=== PATIENT | male | born 1955 | race Caucasian/White ===

== ENCOUNTER 2022-03-30 07:19 | Inpatient (IN) | payer OTHER ==
[~2022-03-30] VITALS: Ht 172.7 cm; Wt 96.3 kg
[2022-03-30] MEDS ORDERED: OZEMPIC0.25 MG/0. SQ (07:32)
[2022-03-30] MEDS ORDERED: ALLOPURINOL300 MG PO (07:32)
[2022-03-30] MEDS ORDERED: LOSARTAN POTAS100 MG PO (07:33)
[2022-03-30] MEDS ORDERED: INDAPAMIDE1.25 MG PO (07:34)
[2022-03-30] MEDS ORDERED: SPIRONOLACTONE25 MG PO (07:34)
[2022-03-30] MEDS ORDERED: AZELASTINE HCL6 ML OPTH (07:35)
[2022-03-30] MEDS ORDERED: DOXYCYCLINE MO100 M1 PO (07:35)
[2022-03-30] MEDS ORDERED: ISOSORBIDE MONO30 MG PO (07:35)
[2022-03-30] MEDS ORDERED: OLOPATADINE HCL5 ML OP (07:36)
--- NOTE | 2022-03-30 15:00 | NUR ---
PATIENT ADMITTED TO CCU ROOM 130 VIA STRETCHER FROM ER FOR SEVERE SEPSIS. PT PULLED TO CCU BED X3 PERSON ASSIST. PT HAS MOTTLING TO ABDOMEN AND LOWER LEGS. BLOOD PRESSURES ARE LOW UPON ADMISSION. PT FINISHING UP THE 500 ML BOLUS OF NS. IVF TO INFUSE AT 200 ML/HR AFTERWARDS. LOW URINE OUTPUT NOTED IN ER. HR IN THE 110s UPON PRESENTATION. PT STILL RATING ABDOMINAL PAIN 10/10.
--- NOTE | 2022-03-30 16:05 | NUR ---
NOREPI STARTED AT 4 MCG/MIN FOR MANUAL BP OF 60 AND 62 SYSTOLIC. MONITOR READING 72/57. PT STILL PAINFUL. IV BOLUS OF 500 ML OF NS GOING OVER A HALF HOUR AT THIS TIME. THEN IVF TO RESUME AT 200 ML/HR.
[2022-03-30] MEDS ORDERED: FLUTICASONE PRO16 GM NAS (16:31)
[2022-03-30] MEDS ORDERED: AMLODIPINE BESYL5 MG PO (16:31)
[2022-03-30] MEDS ORDERED: SIMVASTATIN20 MG PO (16:34)
[2022-03-30] MEDS ORDERED: AZELAIC ACID50 GM TOP (16:40)
--- NOTE | 2022-03-30 17:21 | NUR ---
NGT INSERTED INTO RIGHT NARE BY SHAR TEJEDA. PT TOLERATED WELL. PT NOW ON 10 MCG/MIN OF LEVOPHED. NGT TO LOW INTERMITTENT SUCTION. IVF CONTINUE AT 200 ML/HR.
--- NOTE | 2022-03-30 19:13 | NUR ---
FENTANYL 25 MG IV REPAEATED FOR PAIN 10/10, COMPAZINE 5 MG IV FOR NAUSEA. PATIENT SON IN ROOM.
--- NOTE | 2022-03-30 21:08 | NUR ---
PT RESTING IN BED AT THIS TIME AWAKE AND ALERT, LEVOPHED INFUSING AT 14MCG/MIN, IVF INFUSING. PT ON 3L O2 NC. PT AWAKE AND ALERT AT THIS TIME. VITALS TAKEN (SEE CHART) AND SCHEDULED MEDICATIONS ADMINISTERED (SEE MAR). INSULIN HELD PER SLIDING SCALE. PRN FENTANYL ADMINISTERED FOR PT'S 10/10 ABDOMINAL PAIN. PRN PHENERGAN ADMINISTERED FOR PT'S NAUSEA. PT ASSESSMENT THEN COMPLETED. PT SLIGHTLY DROWSY BUT AWAKE, ORIENTED X4, FOLLOWS DIRECTIONS, PT REPORTS ABDOMINAL PAIN IS A PRESSURE/BLOATING CRAMP SENSATION. HEART RATE TACHYCARDING BUT REGULAR, PT LUNGS CLEAR IN UPPER LOBES AND DIMINISHED IN THE BASES BILATERALLY. PT REMAINS ON 3L OW NC. ABDOMEN MODERATELY DISTENDED, GUARDED, BOWEL TONES HYPOACTIVE. ABDOMEN MOTTLED IN COLOR. PULSES +1, CAPILLARY REFILL BRISK IN HANDS, DELAYED IN FEET. EXTREMITIES COLD. NT TUBE IN PLACE AND ON LIS, CONTENTS IN TUBING BROWN/MAUVE COLORED. ONEIL DRAINING YELLOW URINE. OVER THE TIME OF BEING WITH THE PATIENT THE LEVOPHED DRIP WAS TITRATED THREE TIMES TO REACH GOAL MAP OF 75MMHG. LEVOPHED DRIP NOW AT 20MCG/MIN (SEE CHART). PT REPORTS NO FURTHER NEEDS AT THIS TIME AND IS NOW RESTING IN BED. CALL LIGHT IN REACH, BED IN LOWEST POSITION, WILL CONTINUE PLAN OF CARE.
--- NOTE | 2022-03-30 21:35 | NUR ---
DR. SORTO NOTIFIED OF PT'S LABS, NEW ORDERS GIVEN TO OBTAIN A CVP AND CONTINUE PLAN OF CARE. PT'S SON NOW IN ROOM AT THE BEDSIDE. NEW BAG OF LEVOPHED STARTED AND INFUSING AT PREVIOUS RATE (SEE CHART). PT RESTING IN BED AT THIS TIME. CALL LIGHT IN REACH, BED IN LOWEST POSITION, WILL CONTINUE PLAN OF CARE.
--- NOTE | 2022-03-30 22:25 | NUR ---
DR. SORTO NOTIFIED THIS RN THAT NEW MAP GOAL WAS 70MMHG PROVIDED PT WAS PRODUCING 0.5ML/KG URINE PER HOUR. IF URINE OUTPUT MAINTAINED AT 0.5ML/KG/HR THEN SUBSEQUENT MAP GOAL WOULD BE DECREASED TO 65MMHG LONG URINE OUTPUT MAINTAINED AT 0.5ML/KG/HR. WILL CONTINUE PLAN OF CARE.
--- NOTE | 2022-03-30 22:52 | NUR ---
PT REMAINS RESTING IN BED, CVP TUBING BEING TROUBLESHOOTED. PT REPORTED ABDOMINAL PAIN DURING THIS TIME 06/01, PRN FENTANYL ADMINISTERED (SEE MAR). CVP OBTAINED AND WAS 4-5 MMHG. VITALS ASSESSED, LEVOPHED TITRATED DOWN TO 18MCG/MIN PER NEW ORDERS. NEW BAG OF IVF STARTED AFTERWARDS AND SCHEDULED IV ABX STARTED AND ALSO INFUSING (SEE MAR). PT REMAINS RESTING IN BED AT THIS TIME AND REPORTS NO FURTHER NEEDS WHEN ASKED. CALL LIGHT IN REACH, BED IN LOWEST POSITION, NG TUBE ON LIS WITH MAUVE COLORED CONTENTS DRAINING FROM TUBE, ONEIL INTACT AND DRAINING YELLOW URINE. PT ON 3L O2 NC, SPO2 96%. WILL CONTINUE PLAN OF CARE.
--- NOTE | 2022-03-30 23:40 | NUR ---
CALL LIGHT USED BY PT, PT REQUESTED PRN PAIN MEDICATION TO RN MARCO. THIS RN IN TO ADMINISTER PRN FENTANYL TO PT (SEE MAR). URINE OUTPUT FOR HOUR MEASURED AND WAS 45ML. PT REPORTS NO FURTHER NEEDS AT THIS TIME AND REMAINS RESTING IN BED AWAKE AND ORIENTED. CALL LIGHT IN REACH, BED IN LOWEST POSITION, LEVOPHED AT 18MCG/MIN, IVF AND IV ABX INFUSING, WILL CONTINUE PLAN OF CARE.
--- NOTE | 2022-03-31 01:05 | NUR ---
PT RESTING IN BED AT THIS TIME, LEVOPHED INFUSING AT 18MCG/MIN. IVF AND IV ABX INFUSING AT ORDERED RATE. PT REMAINS ON 3L O2 NC. PT URINE OUTPUT ASSESSED AND WAS 40ML/HR PT LEVOPHED WAS LEFT AT 18MCG/MIN. PT AWOKE AND STATED HE WAS HAVING 10/10 ABDOMINAL PAIN AND STATED HE FELT PRESSURE IN HIS ABDOMEN. PRN FENTANYL ADMINISTERED AND NG TUBE FLUSHED WITH 70ML WATER. AFTER FLUSHING NG TUBE AND MOMENTARILY INCREASING SUCTION ABOUT 200ML OF ADDITIONAL BROWN/MAUVE FLUID WAS DRAINED FROM THE NG TUBE. PT NOW BACK TO LIS, NG TUBE INTACT AND CONTINUES TO DRAIN. PT VITALS TAKEN AND ASSESSMENT COMPLETED (SEE CHART). PT RYTHM REMAINS REGULAR AND TACHYCARDIC, LUNGS CLEAR IN UPPER LOBES AND DIMINISHED IN THE BASES BILATERALLY, RESPIRATIONS 27-32. ABDOMEN IS MODERATELY DISTENDED AND PAINFUL/GUARDED WHEN PALPATED. BOWEL TONES RARE IN ALL 4 QUADRANTS. RADIAL PULSES STRONG, PEDAL PULSES +1. ONEIL DRAINING YELLOW URINE. AFTER ASSESSMENT PT INCREASED TO 4L O2 NC SPO2 WAS MAINTAINING AT 88-90% AND NEW BAG OF LEVOPHED STARTED AND INFUSING AT PREVIOUS RATE. PT REPORTS NO FURTHER NEEDS AT THIS TIME AND RETURNED BACK TO RESTING WITH HIS EYES CLOSED. CALL LIGHT IN REACH, BED IN LOWEST POSITION, WILL CONTINUE PLAN OF CARE.
--- NOTE | 2022-03-31 01:35 | NUR ---
PT'S DAUGHTER UPDATED AT THIS TIME ON PHONE AFTER GETTING PERMISSION FROM PT. AFTERWARDS PT URINE OUTPUT ASSESSED AND WAS 55ML FOR THE HOUR. LEVOPHED DRIP DECREASED TO 16 MCG/MIN. PT REPORTS NO FURTHER NEEDS AT THIS TIME AND REMAINS RESTING IN BED. NG TUBE ON LIS, IVF AND IV ABX INFUSING, CALL LIGHT IN REACH, WILL CONTINUE PLAN OF CARE.
--- NOTE | 2022-03-31 02:05 | NUR ---
DR. SORTO CALLED THIS RN. UPDATED ON PT'S VITALS, INTAKE AND OUTPUT, AND ASSESSMENTS. NEW ORDERS GIVEN TO DRAW A LACTIC WITH THE MORNING LABS AND CHANGE TOTAL FLUID ADMINISTRATION TO 150MLS/HR. PREVIOUS ORDERS ON MAINTAINING MAPS AND URINE OUTPUT TO BE CONTINUED (SEE NOTE). IVF TURNED DOWN TO 65ML/HR IV ABX AND IV LEVOPHED TOTAL 85ML/HR. LEVOPHED REMAINS AT 16MCG/MIN. PT REPORTS NO NEEDS AT THIS TIME AND IS RESTING IN BED. CALL LIGHT IN REACH, WILL CONTINUE PLAN OF CARE.
--- NOTE | 2022-03-31 03:05 | NUR ---
PT ALERT AND ORIENTED LAYING IN BED, PT ON 16MCG/MIN LEVOPHED WHICH WAS TITRATED DOWN TO 14MCG/MIN PER TITRATION ORDERS (SEE CHART). PT REPORTED HAVING ABDOMINAL PAIN 10/10 AND NAUSEA. PRN FENTANYL AND ZOFRAN ADMINISTERED (SEE MAR). NG TUBE FLUSHED WITH WATER AND REMAINS ON LIS. CONTENTS IN TUBING BROWN/MAUVE. PT REPORTS NO FURTHER NEEDS AFTERWARDS AND IS NOW RESTING IN BED. CALL LIGHT IN REACH, WILL CONTINUE PLAN OF CARE.
--- NOTE | 2022-03-31 04:18 | NUR ---
PT RESTING IN BED AT THIS TIME AWAKE AND ALERT, REMAINS AT 14MCG/MIN, MAPS REMAIN AT 70MMHG AND ABOVE, IVF TOTAL 150ML/HR. PT ASKED TO SIT UP IN BED, PT ASSISTED TO A SITTING POSITION FOR A FEW MINUTES FOR COMFORT. PT THEN ASSISTED BACK TO BED. PT ASSESSMENT COMPLETED AT THIS TIME. PT REPORTS SHORTNESS OF BREATH DUE TO ACTIVITY, SPO2 MAINTAINING AT 98-99% ON 4L O2 NC. . HEAR RATE REGULAR IN RYTHM, TACHYCARDIC. LUNGS CLEAR IN UPPER LOBES, DIMINISHED IN THE BASES. ABDOMEN REMAINS DISTENDED, MOTTLED IN COLOR, RARE BOWEL TONES, GUARDED WHEN PALPATED. PULSES +1, CAP REFILL DELAYED. NG TUBE ON LIS WITH LIGHT BROWN DRAINING IN TUBING. PT REPORTED PAIN AFTERWARDS IN ABDOMEN /10. PRN FENTANYL ADMINISTERED. PT NOW RESTING IN BED AND REPORTS NO NEEDS WHEN ASKED. CALL LIGHT IN REACH, BED IN LOWEST POSITION, WILL CONTINUE PLAN OF CARE.
--- NOTE | 2022-03-31 04:31 | NUR ---
DR. SORTO NOTIFIED OF PT'S VITALS, URINE OUTPUT, AND LEVOPHED DRIP RATE OF 14 MCG/MIN. NEW ORDERS GIVEN TO INCREASE TOTAL FLUDI RATE TO 200MLS/HR. IVF INCREASED TO 142 ML/HR LEVOPHED RATE IS AT 52 ML/HR. PT REPORTS NO NEEDS AT THIS TIME, WILL CONTINUE PLAN OF CARE.
--- NOTE | 2022-03-31 05:45 | NUR ---
NEW BAG OF LEVPOPHED AND NORMAL SALINE STARTED. PT AWAKE IN BED AT THIS TIME AND REPORTED 10/10 ABDOMINAL PAIN. PRN FENTANYL ADMINISTERED ALONG WITH SCHEDULED IV ABX. IVF RATE ADUSTED DUE TO IV ABX INFUSING IN ORDER TO MAINTAIN TOTAL FLUID RATE OF 200ML/HR (SEE CHART). PT REPORTS NO FURTHER NEEDS AT THIS TIME WHEN ASKED, ONEIL DRAINING URINE, NG TUBE ON LIS, CONTENTS IN TUBING HADLEY/BROWN. CALL LIGHT IN REACH, BED IN LOWEST POSITION, PT REMAINS ON 4L O2 NC, WILL CONTINUE PLAN OF CARE.
--- NOTE | 2022-03-31 06:15 | NUR ---
PT RESTING IN BED AT THIS TIME AWAKE. IVF AND LEVOPHED REMAIN AT PREVIOUS RATES (SEE MAR). SCHEDULED LABS DRAWN FROM CENTRAL LINE AT THIS TIME AFTER STOPPING FLUIDS AND WASTING 6ML. BLOOD SAMPLES SENT TO LAB. PT REPORTS NO NEEDS AT THIS TIME, CALL LIGHT IN REACH, BED IN LOWEST POSITION.
--- NOTE | 2022-03-31 07:01 | NUR ---
PT RESTING IN BED AWAKE AND ALERT. PT REPORTS 10/10 ABDOMINAL PAIN AT THIS TIME. PRN FENTANYL ADMINISTERED (SEE MAR). NG TUBE THEN FLUSHED. PT REPORTS NO NEEDS AND REMAINS RESTING IN BED. NG TUBE FLUSHED WITH 50ML OF WATER TO ENSURE PATENCY. CALL LIGHT IN REACH, BED IN LOWEST POSTION, ONEIL DRAINING, NG TUBE ON LIS.
--- NOTE | 2022-03-31 07:07 | NUR ---
DR. SORTO NOTIFIED OF PT'S CRITICAL LAB VALUES K OF 6.8, CO2 10, LACTIC 4.2. NEW ORDERS TO BE PLACED. STAT CHEST X-RAY AND ABDOMINAL X-RAY ORDERED, POTASSIUM ORDERED TO BE REDRAWN. PT RESTING IN BED AT THIS TIME AND REPORTS NO NEEDS, IVF RATES UNCHANGED. POTASSIUM REDRAWN FROM CENTRAL LINE AFTER PAUSING FLUIDS MOMENTARILY AND WASTING 6ML. PT REPORTS NO NEEDS, WILL CONTINUE PLAN OF CARE.
--- NOTE | 2022-03-31 07:25 | NUR ---
DR. SORTO UPDATED ON REDRAWN POTASSIUM THAT WAS 6.8. NEW ORDERS TO BE PLACED, IMAGING CURRENTLY IN PT'S ROOM TO DO CHEST X-RAY AND ABDOMINAL X-RAY. DR. PRO ALSO UPDATED ON PT'S LABS, VITALS, AND LEVOPHED RATE OF 14MCG/MIN, WILL CONTINUE PLAN OF CARE.
--- NOTE | 2022-03-31 07:50 | NUR ---
CXR AND ABD XRAY DONE. DR. PRO IN ROOM TO SEE PATIENT. PT 07/02 PAIN. PRN MEDS GIVEN. PT TO RECEIVE IV INSULIN, IV D50, IV LASIX WITH IV ALBUMIN, IV CALCIUM GLUCONATE. POTASSIUM IS 6.8 THIS AM. SODIUM BICARD GTT TO BE STARTED. NEB TX STARTED PER RT, THEN ABG TO BE DRAWN. PT ON 4 L. HANDS ARE COLD. HR IN THE 110s. LAST BP 85/65 (72). ATTEMPTING TO KEEP MAP >75 AND URINE OUTPUT AT LEAST 45 ML/HR.
--- NOTE | 2022-03-31 08:09 | NUR ---
ABG DRAWN FROM LEFT FEMORAL BY DR. PRO. UNABLE TO DRAW THROUGH PT'S WRISTS.
--- NOTE | 2022-03-31 08:10 | NUR ---
Attempted to see pt, Dr. Jin in the room and Dr. Hernandez in CCu. Staff preparing pt to go for emergenyc surgery. Will see pt tomorrow.
--- NOTE | 2022-03-31 09:10 | NUR ---
UPON RESUMING CARE OF PATIENT THIS AM AT 0730, PT WAS HAVING ABD XRAY AND CHEST XRAY. PT VERY PAINFUL WITH ANY MOVEMENT. PT REQUESTING PAIN MEDICATION WHICH WAS GIVEN. AM LABS ARE CONCERNING,AND NEW ORDERS WERE PLACED AND FOLLOWED ( SEE EMAR). DR. PRO AND DR. SORTO WERE BOTH IN PATIENT'S ROOM BY 0800. LEVI MAYES IN ROOM WELL TO DISCUSS UPCOMING EMERGENT SURGERY. PATIENT'S HANDS WERE COOL UPON EXAM AND PULSE OXIMETERY WAS HAVING A HARD TIME PICKING UP ACCURATE PLETH. HANDS WARMED WITH WARM BLANKETS. LEVOPHED GTT WAS INFUSING AT 14 MCG/MIN INITIALLY AND THEN TITRATED UP TO 20 MCG/MIN WHEN PT LEFT FOR SURGERY. VASOPRESSIN WAS ALSO STARTED AT 0.3 UNITS/MIN. SODIUM BICARB GTT STARTED AT 200 ML/HR. PT'S ABDOMEN REMAINS MOTTLED, BUT THE LEGS ARE LESS MOTTLED THAN THEY WERE YESTERDAY. COOL LOWER EXTREMITIES ALSO. PT LEFT FOR SURGERY AT 0840. PT'S SON SERA WAS IN ROOM AND GIVEN UPDATE BY DR. PRO AND DR. SORTO. HE IS GOING TO GO HOME TO GET HIS MOTHER AND THEN WILL RETURN. PT WAS ALSO GIVEN KAYEXELATE ENEMA PRIOR TO LEAVING AND TOLERATED THIS WELL. PT REMAINED ALERT, ORIENTED, AND AWARE OF CURRENT SITUATION.
--- NOTE | 2022-03-31 12:30 | NUR ---
PATIENT RETURNED FROM SURGERY AROUND 1145, INTUBATED WITH 8.0 ETT. PT WAS ON LEVOPHED AND VASOPRESSIN UPON RETURN FROM SURGERY. PATIENT HAS AN ILEOSTOMY NOW, WELL A G TUBE WHICH IS HOOKED TO ONEIL BAG. URINE OUTPUT IN SURERY WAS 600 ML AND NOW EMPTIED AT 1200 FOR 250 ML. PT NOT ON ANYTHING FOR SEDATION OF YET. DR. SORTO AND DR. PRO IN ROOM. ORDER REC'D TO GIVE SODIUM BICARB PUSH WHICH WAS DONE ( SEE EMAR). LABS DRAWN WELL AND RESULTS PENDING.
--- NOTE | 2022-03-31 12:40 | NUR ---
LAB CALLED AT THIS TIME WITH CRITCAL LACTIC VALUE OF 6.6, SHAR GUZMAN NOTIFIED.
--- NOTE | 2022-03-31 12:57 | NUR ---
PATIENT'S SON AND IN ROOM AT THIS TIME WITH PATIENT. UPDATE GIVEN.
--- NOTE | 2022-03-31 13:21 | NUR ---
1223 ET TUBE WAS 26 AT THE TEETH. AFTER CHEST X-RAY, PULLED ET TUBE BACK TO 24 AT THE TEETH. ETT IS NOW 2CM ABOVE THE CHUN. ET TUBE IS AN 8.0.
--- NOTE | 2022-03-31 14:11 | NUR ---
MED REC COMPLETE
--- NOTE | 2022-03-31 16:50 | NUR ---
PATIENT'S SON SERA IN ROOM AT THIS TIME. PT GIVEN DOSE OF KETAMINE FOR PAIN AND SEDATION. PT ANSWERING QUESTIONS THROUGH NODDING OF HEAD. CURRENTLY LEVOPHED INFUSING AT 26 MCG/MIN (CONCENTRATION IS NOW 8 MG/250 ML BAG), NS AT 100 ML/HR, IV ZOSYN INFUSING AT 25 ML/HR. MONITORING ART LINE PRESSURES WELL NON INVASIVE PRESSURES. PT CONTINUES TO PUT OUT GOOD AMOUNTS OF URINE EACH HOUR, WITH THE LAST HOUR AT 1600 BEING 425 ML. PRIOR HOUR (1500) WAS 625 ML, AND 700 ML THE HOUR BEFORE (1400). ILEOSTOMY BAG HAS SOME AMOUNT OF BROWNISH THIN DRAINAGE. GASTRIC TUBE ON LEFT HAND SIDE IS CONNECTED TO ONEIL BAG, DRAINING DARK GREEN BILE LIKE MATERIAL. PER DR. SORTO, WE WILL CONTINUE TO TITRATE NOREPI DOWN BY LOOKING AT THE NON INVASIVE BP AND COMPARING TO THE MANUAL BPs. ART LINE PRESSURES HAVE DIFFERED FROM NIBP ENTIRE TIME WHILE PT IN CCU. PT NOW GETTING ORAL CARE PER RN. WILL CONTINUE TO MONITOR CLOSELY.
--- NOTE | 2022-03-31 18:57 | NUR ---
PATIENT'S DAUGHTER AND HER BOYFRIEND BOTH IN ROOM. PT'S SON LEAVES FOR THE NIGHT. PT IS NOW ON LEVOPHED AT 28 MCG/MIN, NS AT 100 ML/HR, AND PROPOFOL AT 5 MCG/KG/MIN. VENT SETTINGS REMAIN VT 550, PEEP 5, VC/AC 28, AND F902 40%. PT STILL 24 AT THE LIP. CONTINUE TO MONITOR ART LINE IN LEFT WRIST. ART LINE READING 84/62 AT THIS TIME AND NIBP 107/78. CVP READING 3.
--- NOTE | 2022-03-31 20:17 | NUR ---
PT LAYING IN BED ON VENTILATOR RESTING AT THIS TIME. SHAR LARA IN TO ASSIST WITH PT CARES AND DRAW LABS. VENT SETTINGS ARE AT FIO2 40%, PEEP 5, RR 28, VT 550, VC-AC MODE. LEVPHED AT 28 MCG/MIN, PROPOFOL AT 5 MCG/KG/MIN, LR AT 100 ML/HR. VITALS TAKEN AT THIS TIME (SEE CHART). PT BECAME RESTLESS AFTERWARDS, PRN FENTANYL ADMINISTERED. LEVOPHED THEN TITRATED UP TO 30MCG/MIN TO MAINTAIN MAPS ABOVE 60 MMHG (SEE CHART). PT ASSESSMENT COMPLETED AFTERWARDS. PT RASS -1, HEART RYTHM REGULAR AND TACHYCARDIC, LUNGS ARE CLEAR, SPO2 98%, RR 28-30. ABDOMEN SLIGHTLY MOTTLED MILD DISTENTION NOTED BUT IS SOFT, OSTOMY SITE DRAINAGE NOTED BUT NOT SATURATED, BROWN LIQUID CONTENTS IN OSTOMY BAG. G TUBE DRAINING TO GRAVITY, SITE C/D/I. ONEIL IN PLACE AND DRAINING URINE. RIGHT IJ C/D/I AND PATENT. CVP ON BROWN PORT. ART LINE C/D/I. PULSES ASSESSED VIA DOPPLER, RESTRAINTS RELEASED AND SECURED. SKIN INTACT. SCDS ON LEGS AND ON. PT SAT UP 30 DEGREES AND REPOSITIONED WITH A PILLOW UNDER HIS RIGHT SIDE. SHAR LARA ASSISTED WITH IN LINE AND ORAL SUCTIONING. PT REMAINS RESTING AT THIS TIME NOW IN NO APPARENT DISTRESS. PT'S FAMILY IN ROOM AT THE BEDSIDE. WILL CONTINUE PLAN OF CARE.
--- NOTE | 2022-03-31 20:21 | NUR ---
DR. SORTO NOTIFIED OF PT'S CRITICAL LACTIC ACID OF 5.0. DR. SORTO ALSO UPDATED ON REMAINING LABS, INTAKE AND OUTPUT, AND IV MEDICATION/FLUID RATES. NEW ORDERS TO BE PLACED, WILL CONTINUE TO MONITOR OUTPUT AND TITRATE LEVOPHED TOLERATED. WILL CONTINUE PLAN OF CARE.
--- NOTE | 2022-03-31 20:40 | NUR ---
PT RESTLESS IN BED AT THIS TIME WHILE ON THE VENTILATOR. PROPOFOL INCREASED FROM 5 TO 10 MCG/KG/MIN. AFTERWARDS PRN FENTANYL WAS ADMINISTERED FOR PT'S PAIN VIA GRIMACING AND RESTLESSNESS. PT'S SCHEDULED IV ABX STARTED AFTERWARDS. PT NOW RESTING IN BED ON VENTILATOR. SETTINGS UNCHANGED, LEVOPHED RATE REMAINS AT 30 MCG/MIN, IVF RATE AT 100, WILL CONTINUE PLAN OF CARE.
--- NOTE | 2022-03-31 21:20 | NUR ---
PT RESTLESS IN BED AT THIS TIME WHILE ON VENTILATOR. PROPOFOL INCREASED TO 15 MCG/KG/MIN AND PRN FENTANYL ADMINISTERED FOR PAIN (SEE MAR). AFTERWARDS MAPS NOTED TO FALL BELOW 60 ON ARTERIAL LINE, PROPOFOL DECREASED BACK TO 10 MCG/KG/MIN, LEVOPHED INCREASED UP TO 32 MCG/MIN. PT NOW RESTING IN BED ON THE VENTILATOR IN NO APPARENT DISTRESS. WILL CONTINUE PLAN OF CARE AND NOTIFY DR. SORTO THAT LEVOPHED WAS TITRATED OVER 30MCG/MIN.
--- NOTE | 2022-03-31 21:50 | NUR ---
DR. SORTO NOTIFIED THAT LEVOPHED DRIP WAS TITRATED UP TO 32 MCG/MIN. DR. SORTO ALSO UPDATED ON URINARY OUTPUT AND CVP. NEW ORDERS GIVEN TO ADMINISTER A 500ML BOLUS OF LR OVER 1 HOUR AND THEN RECHECK CVP. LR BOLUS STARTED AFTERWARDS ORDERED AND IS NOW INFUSING AT ORDERED RATE. PT REMAINS RESTING IN BED ON THE VENTILATOR. LEVOPHED AT 32MCG/MIN, PROPOFOL AT 10 MCG/KG/MIN, LR AT 100ML/HR. ONEIL DRAINING., G TUBE DRAINING, WILL CONTINUE PLAN OF CARE.
--- NOTE | 2022-03-31 22:26 | NUR ---
PRN FENTANYL ADMINISTERED AT THIS TIME PT WAS RESTLESS WHILE ON THE VENTILATOR. PT RESTING AFTER PRN FENTANYL WAS ADMINISTERED. VENT SETTINGS AND FLUID RATES UNCHANGED, WILL CONTINUE PLAN OF CARE.
--- NOTE | 2022-03-31 22:58 | NUR ---
IVF COMPLETED AT THIS TIME, CVP ASSESSED AND WAS [address] SORTO NOTIFIED OF CVP, URINARY OUTPUT, AND DRIP RATES AND RESPONSE TO 500ML BOLUS. NEW ORDERS GIVEN TO INCREASE LR FLUID RATE TO 150ML/HR AND ADMINISTER IV ALBUMIN. NEW ORDERS TO BE PLACED BY DR. SORTO. RATE OF LR INCREASED TO 150 ORDERED, ALBUMIN TO BE ADMINISTERED. PT RESTING IN BED ON THE VENTILATOR, SETTINGS UNCHANGED. PT IN NO APPARENT DISTRESS, WILL CONTINUE PLAN OF CARE.
--- NOTE | 2022-04-01 01:30 | NUR ---
PT RESTING IN BED AT THIS TIME, VENT SETTINGS AND FLUID RATES UNCHANGED (SEE CHART). VITALS TAKEN AND ASSESSMENT COMPLETED. LUNGS REMAIN CLEAR, HEART RYTHM REGULAR RYTHM, TACHYCARDIC. RARE BOWEL TONES PRESENT IN RUQ, ABSENT IN THE REST OF THE QUADRANTS. OSTOMY CONTAINS BROWN LIQUID WHICH WAS EMPTIED (200ML). ABDOMINAL DRESSING MORE SATURATED WITH OSTOMY DRAINAGE. G-TUBE SITE C/D/I. SHAR LARA ASSISTED WITH DRESSING CHANGE. SOILED DRESSING REMOVED, SITE CLEANED, SURGICAL SITE NOW C/D/I. NEW ACTICOAT, OPSITE, AND OSTOMY BAG/DRESSING IN PLACE. G-TUBE SITE C/D/I AND DRAINING BROWN/GREEN FLUID. RADIAL PULSES WEAK, PEDAL PULSES PRESENT VIA DOPPLER, CAPILLARY REFILL BRISK. PRN FENTANYL ADMINISTERED FOR PAIN (SEE MAR). SHAR LARA ASSISTED WITH A CENTRAL LINE DRESSING FOR THE RIGHT IJ, THIS RN MUSTAPHA SCHEDULED LABS WHICH WERE THEN SENT. ART LINE ZEROED AFTERWARDS AND SITE REINFORCED WITH TAPE. NEW BAG OF LEVOPHED STARTED AT A NEW RATE OF 30MCG/MIN, NEW BAG OF LR STARTED AT PREVIOUS RATE OF 150 ML/HR, PROPOFOL LEFT AT 10 MCG/KG/MIN. 1 UNIT OF INSULIN ADMINISTERED PER SLIDING SCALE (SEE MAR). AFTERWARDS PT BECAME RESTLESS AGAIN IN BED. YOGA COORDINATOR NAA ADMINISTERED ADDITIONAL DOSE OF PRN FENTANYL (SEE MAR). PT NOW RESTING IN BED ON THE VENT IN NO APPARENT DISTRESS. IVF INFUSING, LEVOPHED INFUSING, PROPOFOL INFUSING, ONEIL DRAINING, G-TUBE DRAINING, OSTOMY SITE DRAINING, WILL CONTINUE PLAN OF CARE.
--- NOTE | 2022-04-01 01:35 | NUR ---
DR. SORTO NOTIFIED OF PT'S LABS, MEDICATION RATES, INTAKE AND OUTPUT. NO NEW ORDERS AT THIS TIME, WILL CONTINUE TO TITRATE LEVOPHED DOWN TOLERATED. WILL CONTINUE PLAN OF CARE.
--- NOTE | 2022-04-01 03:15 | NUR ---
PT RESTING IN BED AT THIS TIME, URINE OUTPUT FOR THE HOUR WAS 210ML. LEVOPHED TITRATED DOWN TO 22 MCG/MIN. PT BEGAN TO BECOME RESTLESS AFTERWARDS INBED AND GRIMACE. PRN FENTANYL ADMINISTERED (SEE MAR). PT NOW RESTING IN BED IN NO APAPRENT DISTRESS ON THE VENT. WILL CONTINUE PLAN OF CARE.
--- NOTE | 2022-04-01 03:25 | NUR ---
PT RESTING IN BED ON THE VENTILATOR IN NO APPARENT DISTRESS. LEVOPHED TITRATED DOWN TO 20 MCG/MIN AT THIS TIME PER MAPS AND URINE OUTPUT (SEE CHART). WILL CONTINUE PLAN OF CARE. IVF AND PROPOFOL ON AT PREVIOUS RATES.
--- NOTE | 2022-04-01 04:56 | NUR ---
PT RESTING IN BED AT THIS TIME RESTLESS ON THE VENT. LEVOPHED TITRATED DOWN PER MAP AND URINE OUTPUT, PRN FENTANYL THEN ADMINISTERED FOR PAIN (SEE MAR). VITALS TAKEN AND ASSESSMENT COMPLETED (SEE CHART). PT RASS -2, PT OPENED EYES WHILE DOING ORAL CARES. LUNGS REMAIN CLEAR, BOWEL TONES RARE IN UPPER RIGHT AND ABSENT IN REMAINING QUADRANTS, ABDOMINAL INCISION C/D/I WITH SOME SCANT SPOTTING, OSTOMY SITE C/D/I, G-TUBE SITE C/D/I, DARK GREEN DRAINAGE NOTED. RADIAL PULSES +1, PEDAL PULSES HEARD WITH DOPPLER, EXTREMTIES REMAIN COLD. ONEIL DRAINING URINE. AFTERWARDS LEVOPHED WAS TITRATED BACK UP TO 20MCG/MIN MAPS FELL BELOW 60 MMHG. PT REPOSITIONED UP IN BED WITH ASSISTANCE FROM SHAR LARA. LINES ZEROED AFTERWARDS. AFTER REPOSITIONED PT BECAME RESTLESS AND WAS GRIMACING. A PRN DOSE OF FENTANYL WAS ADMINISTERED FOR PAIN. PT NOW RESTING IN BED IN NO APPARENT DISTRESS ON THE VENT. IVF AND PROPOFOL REMAIN UNCHANGED, WILL CONTINUE PLAN OF CARE.
--- NOTE | 2022-04-01 06:17 | NUR ---
PT RESTING IN BED ON THE VENT, SETTINGS UNCHANGED, LEVOPHED AT 18MCG/MIN, PROPOFOL AT 10 MCG/KG/MIN, IVF AT 150. LABS DRAWN AT THIS TIME AND SENT TO LAB. IV ABX STARTED AND INFUSING AT ORDERED RATE. CBG ASSESSED BY SHAR LARA, NO INSULIN ADMINISTERED PER SLIDING SCALE. G-TUBE SITE C/D/I, TOTAL DRAINAGE WAS 25ML FOR THE SHIFT, DRAINIAGE WAS DARK GREEN. ILEOSTOMY SITE C/D/I, TOTAL DRAINIAGE FOR THE SHIFT WAS 225ML OF LIQUID BROWN FLUID. MIDLINE INCISION C/D/I WITH SCANT RED SPOTTING. UO FOR THE HOUR WAS 145ML. PT REPOSITIONED IN BED, PILLOWS REMOVED FROM UNDERNEATH HIP PER FAMILY REQUEST PT IS STATED TO HAVE HIP ISSUES ON HIS LEFT SIDE. PRN FENTANYL ADMINISTERED PT BECAME RESTLESS (SEE MAR). PT NOW RESTING IN BED IN NO APPARENT DISTRESS. NO FURTHER NEEDS ASSESSED, FAMILY IN ROOM AT THE BEDSIDE, WILL CONTINUE PLAN OF CARE.
--- NOTE | 2022-04-01 06:31 | NUR ---
PT RESTING IN BED ON THE VENT, SETTINGS UNCHANGED. LEVOPHED TITRATED DOWN TO 16MCG/MIN PER MAPS AND URINE OUTPUT. IVF REMAINS AT 150MLS AND PROPOFOL REMAINS AT 10 MCG/KG/MIN. PT REMAINS RESTING IN BED, FAMILY IN ROOM, WILL CONTINUE PLAN OF CARE.
--- NOTE | 2022-04-01 06:51 | NUR ---
PT LEVOPHED INCREASED BACK TO 18 MCG/MIN MAPS FELL BELOW 60 MMHG AFTER PRN DOSE OF FENTANYL WAS ADMINISTERED (SEE MAR). PT REMAINS RESTING IN BED ON THE VENT IN NO APPARENT DISTRESS. VENT SETTINGS UNCHANGED, IVF AND PROPOFOL RATES UNCHANGED, IV ABX INFUSING, WILL CONTINUE PLAN OF CARE.
--- NOTE | 2022-04-01 07:15 | NUR ---
REPORT RECIEVED, CARE OF PT ASSUMED AT THIS TIME.
--- NOTE | 2022-04-01 07:30 | NUR ---
PT AWAKE IN ROOM. RESPONSIVE TO YES OR NO QUESTIONS. SHAKES HEAD YES WHEN ASKED IF HE HAS PAIN. PRN FENTYNAL GIVEN AT THIS TIME. PT HEART RATE AT 115- 120 AT REST. ART LINE AND CVP LINED ZEROED AT THIS TIME. LEVOPHED TITRATED UP TO 20 MCG/MIN. PROPOFOL REMAINS AT 10 MCG/KG/MIN. IV FLUIDS AND ABX CONTINUE TO INFUSE.
--- NOTE | 2022-04-01 08:21 | NUR ---
RT IN ROOM THIS TIME TO DO ORAL CARE AND ASSESSMENT.
--- NOTE | 2022-04-01 08:30 | NUR ---
ASSESSMENT COMPLETED. PT BREATHING WTIH THE VENT. RR=28. JA=806, PEEP= 5, FIO2= 40%. PT IN NEED OF PRN FENTYNAL Q 30 MINUTES. PT AT A KANA OF -1 TO -2. PROPFOL INFUSING AT 10 MCG/KG/MIN. RARE BOWEL TONES NOTED IN UPPER LEFT AND RIGHT QUADRANTS. ABSENT IN LOWER ABDOMINAL QUADRANTS. PT MILDLY DIAPHORETIC. AXIALLARY TEMP OF 99.9. LEVOPHED DRIP AT 22 MCG PER MINUTE TO MAINTAIN MAPS BETWEEN 60-70. RADIAL PULSES WEAK, DISTAL PULSES FOUND BY DOPPLER. FEET ARE COOL TO TOUCH. DRESSING ON MIDLINE INCISION IS CLEAN, DRY AND INTACT. WRIST RESTRAINTS RELEASED AND RETIED. DAUGHTER REMAINS AT BEDSIDE. DR SORTO CALLED AND UPDATED ON PT CURRENT CONDTION BY PHONE.
--- NOTE | 2022-04-01 09:47 | NUR ---
PT CONTINUES TO NEED PAIN MEDICATION Q 30 MINUTES. RASS -1 TO -2. LEVOPHED, PROPOFOL, ABX, AND IV FLUIDS CONTINUE TO INFUSE. DAUGHTER REMAINS AT BEDSIDE.
--- NOTE | 2022-04-01 10:26 | NUR ---
DR SORTO IN ROOM AT THIS TIME TO ASSESS PATIENT AND ESTABLISH PLAN OF CARE FOR THE DAY. LACTIC ACID ORDERED AT THIS TIME. PLAN TO KEEP PATIENT ON THE VENT WITH SEDATION AT CURRENT SETTINGS, ATTEMPT TO WEAN DOWN THE LEVOPHED DRIP, AND REDRAW AN ABG IN THE AFTERNOON ESTABLISHED. DAUGHTER THOMAS UPDATED ON PLAN OF CARE. ALL QUESTIONS ANSWERED.
--- NOTE | 2022-04-01 11:00 | NUR ---
IV MAGNESIUM NOW INFUSING. PT IV FLUIDS DECREASED TO 100 MLS/HR TO MAINTAIN IV INFUSION TOTAL OF 200 MLS/HR PER R SORTO.
--- NOTE | 2022-04-01 11:58 | NUR ---
PT GIVEN BED BATH. ONEIL CARE COMPLETED. RESTRAINTS RELEASED AND RETIED. WELL TOLERATED BY PT. PT IS NOW RESTLESS IN BED, GRIMACING. GIVEN PRN FENTYNAL (SEE EMAR) AND FENTYNAL DRIP NOW INFUSING. PT NOW AT BEDSIDE. TELEVISION ANCHOR TITI NOW IN ROOM TALKING WITH .
--- NOTE | 2022-04-01 12:22 | NUR ---
DISCUSSED PT URINE OUTPUT AND BLOOD PRESSURES WITH DR SORTO. VERBAL ORDER TO RESUME IV FLUIDS AT 150 MLS/HR.
--- NOTE | 2022-04-01 14:45 | NUR ---
DR SORTO UPDATED ON PT'S URINE OUTPUT, VS, AND OTHER ASSESSMENT FINDINGS. PLAN ESTABLISHED TO CONTINUE TITRATING LEVOPHED DOWN.
--- NOTE | 2022-04-01 15:51 | NUR ---
DR SORTO IN ROOM TO REASSESS PT. PLAN TO CONTINUE TITRATING PT DOWN ON LEVOPHED DRIP.
--- NOTE | 2022-04-01 16:05 | NUR ---
ASSESSMENT UNCHANGED. PT REPOSTIONED. WHEN ASKED IF HE IS LESS PAINFUL PT NODS YES. LEVOPHED AT 10 MCG/MIN. IV PROPOFOL AND FENTYNAL CONTINUE TO INFUSE. ORAL CARE COMPLETED. WELL TOELRATED BY PT
--- NOTE | 2022-04-01 17:05 | NUR ---
DR SORTO AT BEDSIDE TO REASSESS PT WITH THIS RN. PLAN ESTABLISHED TO TITRATE LEVOPHED DRIP BASED ON EXTERNAL BLOOD PRESSURE READINGS AND URINE OUTPUT. LEVOPHED DRIP AT THIS TIME TITRATED DOWN TO 8 MCG/MIN
--- NOTE | 2022-04-01 18:21 | NUR ---
ABG AND OTHER LABS DRAWN AND SENT TO LAB. LEVOPHED AT 8 MCG/MIN. PT GIVEN 25 MCG OF FENTYNAL IV PUSH FOR GENERALIZED DISCOMFORT. PT DAUGHTER THOMAS BACK AT BEDSIDE AND GIVEN AN UPDATE ON PT CONDITION AND CURRENT PLAN OF CARE. ALL QUESTIONS ANSWERED.
--- NOTE | 2022-04-01 19:12 | NUR ---
LEVOPHED TITRATED BACK UP TO 8 MCG/MIN FOR MAP LESS THAT 65. REPORT GIVEN TO DAIRY TECHNOLOGIST RN AT THIS TIME.
--- NOTE | 2022-04-01 19:20 | NUR ---
REPORT RECEIVED FROM LASHANDA RN, WILL CONTINUE PLAN OF CARE.
--- NOTE | 2022-04-01 19:30 | NUR ---
DR. PRO UPDATED ON PT'S LABS AND DRIP RATES AT THIS TIME. WILL CONTINUE PLAN OF CARE
--- NOTE | 2022-04-01 19:50 | NUR ---
PT RESTING IN ROOM ON THE VENTILATOR. SETTINGS ARE VT 420, RR 28, FIO2 40%, PEEP 5. LEVOPHED AT 8MCG/MIN, PROPOFOL AT 8MCG/KG/MIN, FENTANYL AT 25 MCG/HR, IVF AT 150 ML/HR. MANUAL BP TAKEN AT THIS TIME AND WAS 68/52 MMHG. BP COMPARED TO ART LINE BP AND NONINVASIVE BP FROM MONITOR (SEE VITALS). PT IN NO APPARENT DISTRESS AT THIS TIME AND REMAINS RESTING ON THE VENT. WILL CONTINUE PLAN OF CARE.
--- NOTE | 2022-04-01 19:55 | NUR ---
DR. SORTO UPDATED ON PT'S MANUAL BLOOD PRESSURE, ART LINE PRESSURE, AND NONINVASIVE MONITOR PRESSURE, DRIP RATES, AND URINE OUTPUT. ORDERS GIVEN TO MAINTAIN MAPS ABOVE 60 MMHG, MONITOR URINE OUTPUT, AND TITRATE OFF LEVOPHED TOLERATED. PT VENT SETTINGS TO BE CHANGED BY RT, RR TO BE TURNED DOWN BY 2 Q1 HR UNTIL RATE IS AT 20/MIN AND ETCO2 REMAINS UNDER 35. NEW ORDERS TO BE PLACED BY DR. SORTO. RT NOTIFIED AT THIS TIME OF NEW ORDERS, WILL CONTINUE PLAN OF CARE.
--- NOTE | 2022-04-01 21:05 | NUR ---
PT RESTING IN BED ON THE VENT, DRIP RATES UNCHANGED. ASSESSMENT COMPLETED AT THIS TIME. PT RASS -1 AND OPENS EYES TO VOICE. LUNGS REMAIN CLEAR, RR NOW AT 26 ON VENT. HEART RYTHM REGULAR AND TACHYCARDIC. ABDOMEN MILDLY DISTENDED, SOFT, RARE BOWEL TONES PRESENT ON RUQ AND ABSENT IN REMAINING QUADRANTS. OSTOMY SITE C/D/I, BROWN LIQUID NOTED IN BAG. MIDLINE INCISION C/D/I WITH SCANT RED SPOTTING. G-TUBE ON LEFT SIDE IS C/D/I, DRAINING DARK GREEN LIQUID INTO BAG. RADIAL AND PEDAL PULSES +1, RESTRAINTS IN PLACE, SKIN UNDERNEATH INTACT, EXTREMITIES WARM. ART LINE IN PLACE AND C/D/I, ONEIL DRAINING YELLOW URINE. SCDS IN PLACE. AFTER ASSESSMENT PT WAS ORAL SUCTIONED, PT BECAME RESTLESS DURING THIS TIME AND WAS GIVEN A PRN PUSH OF FENTANYL (SEE MAR). SCHEDULED MEDICATIONS THEN ADMINISTERED (SEE MAR). IV POTASSIUM INFUSING INTO CENTRAL LINE, 1 UNIT INSULIN GIVEN PER SLIDING SCALE. NEW GOWN PLACED ON PATIENT AFTERWARDS. RT NOW IN ROOM CHANGING RR ON VENT TO 24. PT BECAME RESTLESS IN BED AFTERWARDS, PROPOFOL DRIP INC TO 10 MCG/KG/MIN, FENTANYL DRIP INCREASED TO 50 MCG/HR. PT NOW RESTING IN BED IN NO APPARENT DISTRESS, WILL CONTINUE PLAN OF CARE.
--- NOTE | 2022-04-01 22:15 | NUR ---
PT RESTLESS IN BED, FENTANYL DRIP INCREASED TO 75MCG/HR. PT REPOSITIONED UP IN BED WITH ASSISTANCE FROM SHAR LARA AND REMAINS AT 30 DEGREES. ART LINE REZEROED AFTER REPOSITIONING PT. ORAL CARE DONE AT THIS TIME, RT IN ROOM AND CHANGED RR ON VENT TO 22/MIN. ETCO2 30-32. PT REMAINS RESTLESS IN BED AFTERWARDS, PRN FENTANYL PUSH ADMINISTERED (SEE MAR). PT NOW RESTING IN BED IN NO APPARENT DISTRESS. WILL CONTINUE PLAN OF CARE.
--- NOTE | 2022-04-01 22:30 | NUR ---
SCHEDULED IV ZOSYN STARTED AND INFUSING AT ORDERED RATE. PT REMAINS RESTING IN BED, NO FURHTER NEEDS ASSESSED, WILL CONTINUE PLAN OF CARE.
--- NOTE | 2022-04-01 23:34 | NUR ---
PT IV POTASSIUM COMPLETED AT THIS TIME. PT URINE FOR THE HOUR WAS 40ML. PT RESTLESS IN BED, PROPOFOL INCREASED TO 15MCG/KG/MIN. RT IN ROOM AND DECREASED RR TO 20/MIN. ETCO2 29-30. PT PILLOSES REPOSITIONED UNDERNEATH FOR COMFORT. PT REMAINS RESTLESS, PROPOFOL INCREASED TO 20 MCG/KG/MIN. PT BECAME RESTFUL AFTERWARDS, FENTANY DECREASED TO 50MCG/HR. LEVOPHED INCREASED TO 10MCG/MIN TO MAINTAIN MAPS ABOVE 60 MMHG. PT MORE RESTFULL IN BED AT THIS TIME BUT STILL AWAKES EASILY, RASS -1. NO FURTHER NEEDS ASSESSED AT THIS TIME, WILL CONTINUE PLAN OF CARE.
--- NOTE | 2022-04-02 00:45 | NUR ---
DR. SORTO NOTIFIED OF PT'S 0000 LABS AND DECREASED URINARY OUTPUT. ORDERS GIVEN TO TITRATE LEVOPHED TO MAINTAIN MAPS AT 60-70 AND MAINTAIN URINARY OUTPUT OF 40ML/HR. ORDERS ALSO GIVEN TO NOTIFY RT TO CHANGE FIO2 TO 30% AND DECREASE RESPIRATIONS BY 2/HR UNTIL PT IS AT 16RR AND NOTIFY IF ETCO2 INCREASES TO 40. WILL CONTINUE PLAN OF CARE AND NOTIFY RT.
--- NOTE | 2022-04-02 01:06 | NUR ---
RT NOTIFIED OF NEW ORDERS, RT NOW IN ROOM AND CHANGED RR TO 18. URINE OUTPUT FOR PT WAS [address] SORTO NOTIFIED OF URINE OUTPUT, NEW ORDERS GIVEN TO ADMINISTER IV ALBUMIN (SEE EMAR), WILL CONTINUE PLAN OF CARE.
--- NOTE | 2022-04-02 01:51 | NUR ---
PT REMAINS RESTING IN BED VENT SETTINGS UNCHANGED, RR REMAINS AT 18 ON VENT. DRIPS AND IVF UNCHANGED. IV ALBUMIN STARTED AT THIS TIME AND NOW INFUSING AT ORDERED RATE. NO FURTHER NEEDS ASSESSED AT THIS TIME, PT REMAINS RESTING IN BED, WILL CONTINUE PLAN OF CARE.
--- NOTE | 2022-04-02 02:30 | NUR ---
RT IN ROOM CHANGING RR TO 16. ETCO2 33-36. URINE OUTPUT FOR HOUR WAS 35ML. ALBUMIN STILL INFUSING. CBG ASSESSED, 1 UNIT INSULIN GIVEN PER SLIDING SCALE. PT REMAINS RESTING ON VENT. PT'S OWN RESPIRATIONS RANGING FROM 20-22. PT'S LEVOPHED TITRATED DOWN AT 0230 MAP WAS ABOVE 70 MMHG. LEVOPHED NOW AT 10MCG/MIN. PT IN NO APPARENT DISTRESS, WILL CONTINUE PLAN OF CARE.
--- NOTE | 2022-04-02 03:10 | NUR ---
DR. SORTO NOTIFIED OF PT'TS URINE OUTPUT, ORDERS GIVEN TO TITRATE LEVOPHED TO MAINTAIN ARTERIAL LINE MAPS ABOVE 60 MMHG. WILL CONTINUE PLAN OF CARE.
--- NOTE | 2022-04-02 03:50 | NUR ---
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
--- NOTE | 2022-04-02 04:24 | NUR ---
LEVOPHED TITRATED UP TO 16 TO MAINTAIN MAPS ABOVE 60 MMHG. WILL CONTINUE PLAN OF CARE.
--- NOTE | 2022-04-02 04:38 | NUR ---
LEVOPHED TITRATED UP TO 18 MCG/MIN TO MAINTAIN MAPS ABOVE 60 MMHG. WILL CONTINUE PLAN OF CARE.
--- NOTE | 2022-04-02 06:24 | NUR ---
THIS RN IN TO DRAW LABS, VT ON VENT CHANGED TO 490 PER RT DUE TO PT OVERBREATHING VENT. DRIP RATES REMAIN UNCHANGED. AFT LINE USED TO DRAW LABS. AFTER DRAWING ABG ART LINE DID NOT PULL BLOOD FOR REMAINING LABS. ART LINE TROUBLESHOOTED BUT WAVEFORM NO LONGER ACCCURATE AND ART LINE NO LONGER PULLING BLOOD. LAB NOTIFIED TO DRAW REMAINING LABS. PT REMAINS RESTING IN BED IN NO APPARENT DISTRESS. I'S AND O'S ACCOUNTED FOR (SEE CHART), SCHEDULED ZOSYN ADMINISTERED AND 1 UNIT OF INSULIN ADMINISTERED PER SLIDING SCALE. PT IN NO APPARENT DISTRESS AND REMAINS RESTING ON THE VENTILATOR. WILL CONTINUE PLAN OF CARE AND UPDATE MD'S.
--- NOTE | 2022-04-02 06:30 | NUR ---
DR. SORTO AND DR. PRO UPDATED VIA PHONE INDIVIDUALLY AT THIS TIME. DR. SORTO UPDATED ON PT'S DRIP RATES, AVAILABLE LABS, URINARY OUTPUT, PT TEMP OF 99.9, AND INFORMED THAT THE ARTERIAL LINE WAVEFORM NO LONGER ACCEPTABLE/ACCURATE AND DRAWING BLOOD, ALONG WITH COLOR OF STOMA. ORDERS GIVEN TO TITRATE LEVOPHED BASED OF OF NONINVASIVE PRESSURES AND MAINTAIN MAPS OVER [address] PRO UPDATED ON STOMA DARK/BLACK STOMA COLOR, DRIP RATES, AND THAT THE ARTERIAL LINE IS ALSO NO LONGER HAVING AN ACCURATE WAVEFORM. WILL CONTINUE PLAN OF CARE.
--- NOTE | 2022-04-02 07:52 | NUR ---
DR PRO IN TO ASSESS PT AT THIS TIME. PER DR PRO ORDER, URINE OUTPUT GOAL OF 20CC/HR, LEVOPHED TURNED DOWN TO 10 MCG/MIN, PROPOFOL DECREASED TO 15 MCG/KG/MIN. PT AWAKENING AND PULLING AGAINST ARM RESTRAINTS, GRIMACING WITH CHANGES TO PROPOFOL. FENTYNAL DRIP TITRATED UP TO 75 MCG/HR. PER DR PRO ORDER TITRATE DOWN LEVOPHED TO MAP GREATER THAN 60, AND URINE OUTPUT OF 20 CC/HR.
--- NOTE | 2022-04-02 08:10 | NUR ---
OVER TO CHECK ON THE PATIENT, PATIENT CURRENTLY ON VENT. MATEO MYLES AT BEDSIDE. WILL ATTEMPT TO SPEAK WITH PATIENT TODAY WHEN SHE ARRIVES.
--- NOTE | 2022-04-02 08:23 | NUR ---
RT IN ROOM TO PROVIDE ORAL CARE. THIS RN REMAINS AT BEDSIDE TO COMPLETE ASSESSMENT AND TITRATE MEDICATIONS PER MORTEZA ORDER.
--- NOTE | 2022-04-02 08:49 | NUR ---
DR SORTO UPDATED ON ASSESSMENT FINDINGS AND DR PRO ORDER CHANGES.
--- NOTE | 2022-04-02 09:22 | NUR ---
MANUAL BLOOD PRESSURE WITH SYSTOLIC IN THE MID 70S. LEVOPHED REMAINS AT 6. DR PRO UPDATED VIA TELEPHONE. PLAN ESTABLISHED FOR PT TO HAVE A BEDSIDE SCOPE. SURGERY RN AT BEDSIDE AT THIS TIME.
--- NOTE | 2022-04-02 09:30 | NUR ---
DR PRO AT BEDSIDE TO COMPLETE BEDSIDE ENDOSCOPY OF STOMA. CONSENT SIGNED BY PT'S DAUGHTER, WITNESSED BY THIS RN (SEE CHART). PLAN ESTABLISHED TO CONTINUE TITRATING THE LEVOPHED OFF. NEW BAG PUT ON ILEOSOTOMY AT THIS TIME.
--- NOTE | 2022-04-02 10:06 | NUR ---
TOOK PT BS RESULT OF 147
--- NOTE | 2022-04-02 10:42 | NUR ---
BED BATH, ONEIL CARE, AND ORAL CARE COMPLETED AT THIS TIME. DAUGHTER THOMAS AT BEDSIDE PROVIDING ASSSITANCE. WELL TOLERATED BY PT.
--- NOTE | 2022-04-02 11:09 | NUR ---
DR SORTO AT BEDSIDE TO ASSESS PT. PLAN ESTABLISHED TO GIVEN KETAMINE PUSHES INSTEAD OF FENTYNAL PUSHES FOR BREAK THROUGH DISCOMFORT. PROPOFOL DRIP TITRATED DOWN TO 5 MCG/KG/MIN AND FENTYNAL DRIP TITRATED TO 75 MCG/HR. LEVOPHED AT 6 MCG MIN. DAUGHTER THOMAS AT BEDSIDE, ALL QUESTIONS ANSWERED.
--- NOTE | 2022-04-02 11:45 | NUR ---
PT RESTLESS, GRIMACING, EYES OPEN, PULLING AT WRIST RESTRAINTS. PROPOFOL INCREASED TO 7.5 MCG/KG/MIN. PT NODS YES TO HAVING PAIN. FENTYNAL DRIP INCREASED TO 100 MCG/HR. 30 MG OF PRN IV KETAMINE ADMINISTERED AT THIS TIME. (SEE EMAR). PT NOW MORE RESTFUL. DAUGHTER REMAINS AT BEDSIDE. WILL CONTINUE TO CLOSELY MONITOR.
--- NOTE | 2022-04-02 13:04 | OR ---
[facility] [address], [place] [address] Signed DATE OF OPERATION: 03/31/2022 SURGEON: Michael Pro MD PREOPERATIVE DIAGNOSES: Systemic sepsis with toxic megacolon, severe acidosis and hyperkalemia, progressive renal failure. POSTOPERATIVE DIAGNOSES: 1. Systemic sepsis with toxic megacolon, severe acidosis and hyperkalemia, progressive renal failure. 2. Infarcted colon with rectal sparing. 3. contained perforated sigmoid diverticulitis PROCEDURES: 1. Exploration of abdomen and subtotal colectomy with end ileostomy and formation of upper rectal stump. 2. Placement of Kelsea gastrostomy. 3. Splenic flexure mobilization (all this prolonged, complicated and difficult.). PULMONOLOGY PHYSICIAN: Dorothy Velasco RN ANESTHESIA: Parish Euceda CRNA INDICATION: This 66-year-old white male was admitted late yesterday by Dr. Manasa Sorto with generalized abdominal distention and CT scan findings consistent with toxic megacolon and sepsis. He was treated with broad-spectrum antibiotics and fluid resuscitation, showing improvement including improvement of his creatinine and electrolytes and so forth. He required pressor agent norepinephrine infusion and agressive fluid administration. Surgical consultation was undertaken and consideration for subtotal colectomy was made based on his septic appearance. He was carefully monitored but has had progression and worsening of his symptoms including profound acidosis, hyperkalemia, and worsening creatinine. He is recommended to undergo emergency subtotal colectomy for source control of his generalized sepsis. The patient and his son and his understand the grave nature of Electronically Signed By: MICHAEL PRO MD 04/02/22 1304 PATIENT NAME: DAVID POTTS OPERATIVE REPORT DATE OF : 57 REPORT #: [id number] PHYSICIAN: MICHAEL PRO MD PCP: Tristan Carrera DO REPORT IS CONFIDENTIAL AND NOT TO BE RELEASED WITHOUT AUTHORIZATION [facility] [address], [place] [address] Signed this problem and the risks associated with operation including but not limited to bleeding, infection, renal failure, and of course failure to cure the problem. Understanding this, he wished to proceed. FINDINGS: The colon was entirely infarcted. There was sparing of the rectum and superior rectum, but essentially all the colon was infarcted. There was an inflammatory focus and probable perforated diverticulitis into the mesentery at the sigmoid which was resected. The small bowel appeared viable. This did not represent apparent embolic phenomenon particularly. The superior mesenteric artery on preoperative imaging (CT scan) was patent as was the celiac axis and interrogation of the superior mesenteric artery intraoperatively with the Doppler showed good pulsations. Operation consisted of rapid subtotal colectomy with stapling of the rectosigmoid stump (which was viable) as well as end ileostomy. Additionally, an open Kelsea gastrostomy was placed. The operation shift supervisor did place a left radial arterial blood pressure catheter. The central line was already in place as was the Sellers catheter and nasogastric tube. DESCRIPTION OF PROCEDURE: The patient was brought urgently to the operating room and given a general endotracheal anesthetic. The abdomen was clipped and prepared with a chlorhexidine solution and draped sterilely. A midline incision was made and the abdomen entered. There was a prior mesh from incisional hernia repair in the region of the umbilicus. This was divided and omental adhesions divided as well. Entry into the abdomen revealed a very foul smell and findings of viable small bowel but completely infarcted colon including the right and transverse most dominantly. Brownish intra-abdominal fluid was additionally noted, though there was no free perforation proper. The patient was brought to the operating room with a Levophed drip and a vasopressin drip was additionally instituted by the operation shift supervisor. Fluid infusion was ongoing. During the course of the procedure, the operation shift supervisor placed a left radial arterial blood pressure catheter which guided therapy. The Bookwalter retractor was obtained. Expedient source control with subtotal colectomy was affirmed as most appropriate. The white line of Toldt on the right side of the colon was incised and the colon freed with electrocautery and blunt dissection mobilizing the right colon to the midline. The terminal ileum appeared viable. The hepatic flexure was similarly divided as was omentum in continuity with the transverse colon. The mesentery of the right colon and transverse colon was sequentially secured with clamps and ligated with 0 silk ties. A Electronically Signed By: MICHAEL PRO MD 04/02/22 1304 PATIENT NAME: DAVID POTTS OPERATIVE REPORT DATE OF : 57 REPORT #: [id number] PHYSICIAN: MICHAEL PRO MD PCP: Tristan Carrera DO REPORT IS CONFIDENTIAL AND NOT TO BE RELEASED WITHOUT AUTHORIZATION [address] [address] Signed VENITA stapling device was used to transect the terminal ileum. Body position was changed to the right side of the table to allow for left-sided dissection. The small bowel was packed to the right side of the abdomen and secured with laparotomy packs and in and implements from the Bookwalter retractors. There appeared to be sparing of the rectum and rectosigmoid, but a dense mass was noted in the rectosigmoid as had been seen preoperatively on CT scan. White line of Toldt was incised and with similar technique as to the right side, the left colon and sigmoid rotated to the midline. Sequential application of clamps to the vascular pedicles was undertaken, mindful of the retroperitoneal structures and avoidance of encumbering any of them. A VENITA stapling device was used to transect viable rectosigmoid anticipating reanastomosis in the future should the patient survive. Later the stapled end of the rectosigmoid was secured with Prolene sutures for identification in the future. Mobilization of splenic flexure was undertaken in unusual way with blunt electrocautery dissection. The remaining mesentery of the upper left colon and transverse colon secured with clamps and the vascular pedicle secured with silk ties. The offending colonic specimen was removed from the table and subsequently photographed by the staff during the open colon did reveal the mass like abnormality in the sigmoid as probable chronic perforated diverticulitis rather than malignancy proper. The abdomen was irrigated with warm saline solution. Any other areas of minimal oozing were secured with clips or silk ties as appropriate. The patient had stabilized by this point largely though still was on pressor agents. It was deemed advisable to place a gastrostomy tube for decompression and possibly future feeding. A Kelsea gastrostomy was performed shelter up the stomach in the usual technique of a pursestring of 3-0 silk suture in the entry into the stomach with minimal amounts of electrocautery. Through the left upper quadrant stab incision a 24-Eritrean TWAN gastrostomy tube was placed in the stomach, insufflated with saline in the balloon, showing no leakage into the stomach itself. Pursestring sutures were secured in the serosa of the stomach superior to the anterior abdominal wall with interrupted 3-0 silk suture. The flange was secured to the abdominal wall with nylon suture. Attention was turned towards formation of ileostomy. The small bowel had been variably looking completely viable and variably ischemic during the course of dissection in part related to infusion of vasopressors I believe. There appeared to be no sign of embolic phenomenon to the small bowel. To be certain, root of the small superior mesenteric artery was isolated inferior and lateral to the 4th portion of the duodenum and a Doppler device was used to ascertain blood flow in the superior mesenteric artery which was quite vigorous. Electronically Signed By: MICHAEL PRO MD 04/02/22 1304 PATIENT NAME: DAVID POTTS OPERATIVE REPORT DATE OF : 57 REPORT #: [id number] PHYSICIAN: MICHAEL PRO MD PCP: Tristan Carrera DO REPORT IS CONFIDENTIAL AND NOT TO BE RELEASED WITHOUT AUTHORIZATION [facility] [address], [place] [address] Signed The adhesions of the terminal ileum were taken down with sharp and electrocautery dissection. Through the right rectus abdominis muscle and deemed appropriate for ileostomy. A small disk of skin was excised subcutaneous tissue the anterior rectus fascia incised and the rectus muscle was bluntly. The loop of freed terminal ileum was delivered through the abdominal wall. The mesenteric defect was secured laterally to avoid postoperative herniation with running 3-0 silk suture. Attention was turned towards closure. The midline fascia was reapproximated with running bidirectional #1 PDS suture. The segment of mesh in the central portion of the fascia was excised, which did not impair good fascial closure in any way. Subcutaneous tissue was irrigated and the skin closed with stapling device and an Acticoat dressing applied. Attention was turned to maturation of the ileostomy. The ileostomy and mucosa were somewhat ischemic, though the serosa appeared quite viable. The ileostomy was matured with a Inna ileostomy technique providing as much projection as reasonable. This was matured with 3-0 Vicryl suture. The mucosa was somewhat dusky as might be expected given the overall physiologic insult, but I believe to be viable. The small finger was insinuated into the ileostomy showing good patency down through and into the abdominal cavity. The ostomy appliance was fixed to the site. The patient was then transferred to the intensive care unit for further management in critical condition. Blood loss was less than 200 mL in aggregate. Sponge, needle, and instrument counts were reported as correct x3. The operation was prolonged, complicated, and difficult related to the bulkiness of the colon and so on. It was accomplished as expediently and safely as possible. MD ARIA Mane/MODL /[id number] cc: Manasa Sorto MD Electronically Signed By: MICHAEL PRO MD 04/02/22 1304 PATIENT NAME: DAVID POTTS OPERATIVE REPORT DATE OF : 57 REPORT #: [id number] PHYSICIAN: MICHAEL PRO MD PCP: Tristan Carrera DO REPORT IS CONFIDENTIAL AND NOT TO BE RELEASED WITHOUT AUTHORIZATION [facility] [address] [place], [place] [address] Signed Copies: MANASA SORTO MD ~ Electronically Signed By: MICHAEL PRO MD 04/02/22 1304 PATIENT NAME: DAVID POTTS OPERATIVE REPORT DATE OF : 57 REPORT #: [id number] PHYSICIAN: MICHAEL PRO MD PCP: Tristan Carrera DO REPORT IS CONFIDENTIAL AND NOT TO BE RELEASED WITHOUT AUTHORIZATION
--- NOTE | 2022-04-02 13:10 | EKG ---
[facility] [address] [facility] [place] [address] Signed Sinus tachycardia Low voltage QRS Possible Inferior infarct (cited on or before 30-MAR-2022) Cannot rule out Anterior infarct , age undetermined Abnormal ECG When compared with ECG of 30-MAR-2022 15:00, (Unconfirmed) No significant change was found Confirmed by MANASA SORTO MD ([id number]) on 04/02/2022 1:10:36 PM Electronically Signed By: MANASA SORTO MD 04/02/22 1310 PATIENT NAME: DAVID POTTS Electrocardiogram DATE OF : 57 PHYSICIAN: MANASA SORTO MD REPORT #: [id number] REPORT IS CONFIDENTIAL AND NOT TO BE RELEASED WITHOUT AUTHORIZATION
--- NOTE | 2022-04-02 13:10 | EKG ---
[facility] [address] [facility] [place] [address] Signed Sinus tachycardia Low voltage QRS Cannot rule out Inferior infarct , age undetermined Abnormal ECG No previous ECGs available Confirmed by MANASA SORTO MD ([id number]) on 04/02/2022 1:10:21 PM Electronically Signed By: MANASA SORTO MD 04/02/22 1310 PATIENT NAME: DAVID POTTS Electrocardiogram DATE OF : 57 PHYSICIAN: MANASA SORTO MD REPORT #: [id number] REPORT IS CONFIDENTIAL AND NOT TO BE RELEASED WITHOUT AUTHORIZATION
--- NOTE | 2022-04-02 13:20 | NUR ---
DISCUSSED CURRENT LEVOPHED RATE AND URINE OUTPUT WITH DR PRO. ALSO DISCUSSED BROWNISH SLUDGE OUT OF GASTIC TUBE. PLAN ESTABLISHED TO CONTINEU TO TITRATE THE LEVOPHED DOWN AND GIVE A 500 ML BOLUS OF LR OVER AN HOUR.
--- NOTE | 2022-04-02 15:00 | NUR ---
FLUID BOLUS FINSIHED INFUSING. URINE OUTPUT 70 ML FOR THE HOUR. LEVOPHED DRIP AT 2 MCG/MIN. PROPOFOL INFUSING AT 10 MCG/KG/MIN. FENTYNAL DRIP REMAINS AT 100 MCG/MIN. PT REPOSITIONED IN BED. PASSIVE RANGE OF MOION PERFORMED. DAUGHTER REMAINS AT PT BEDSIDE.
--- NOTE | 2022-04-02 16:13 | NUR ---
GTUBE OUTPUT VISCOUS. HEMOCULT POSITIVE. PT OPENS EYES AND SHAKES HEAD YES WHEN ASKED IF HE HAS ABDOMINAL PAIN. LEVOPHED DRIP TITRATED UP TO 4 MCG/MIN TO MAINTAIN MAPS PER MORTEZA'S ORDER. DISCUSSED ASSESSMENT FINDINGS WITH DR NANCE. PLAN ESTABLISHED TO INCREASE FENTYNAL DRIP TO 125 MCG/HR AND LEAVE LEVOPHED INFUSING AT 4 MCG/MIN. KETAMINE PUSH ALSO GIVEN AT THIS TIME. PT RESPOTIONED. DAUGHTER THOMAS UNDERSTANDS UPDATED PLAN OF CARE AND REMAINS AT PT BEDSIDE.
--- NOTE | 2022-04-02 17:15 | NUR ---
DR NANCE IN ROOM THIS TIME TO ASSESS PT AND UPDATE DAUGHTER THOMAS ON PLAN OF CARE. PLAN ESTABLISHED FOR DR NANCE TO CALL AND UPDATE DR PRO. VERBAL ORDER FOR [facility]IT[facility] LABS (SEE ORDER HISTORY).
--- NOTE | 2022-04-02 20:00 | NUR ---
PATIENT IS RESTLESS. REQUIRED PRN PUSH KETAMINE. PATIENT TOLERATED WELL. ABLE TO REPOSITION PATIENT. COCCYX IS SLIGHTLY RED, BLANCHABLE. COCCYX ALYVEN PLACED. PATIENT HAD SMALL STOOL NOTED. NOÉ CARE DONE. PATIENT TIPPED TO HIS LEFT SIDE SLIGHTLY TO REDUCE PRESSURE. IV FLUIDS PER ORDER. PROPOFOL AND FENTANYL TO MAINTAIN RASS SCORE -1. NOREPI AT 5 MCG/MIN; MAP GREATER THAN 60. ONEIL EMPTIED. URINE OUTPUT QS. CENTRAL LINE DRESSING INTACT, TAPE APPLIED TO PROXIMAL BOARDER DUE TO SOME LIFTING OF THE DRESSING. ALL PORTS FLUSH AND DRAW BACK BLOOD. ABD IS MODERATELY DISTENDED, BOWEL SOUNDS RARE/ABSENT. G-TUBE HAS BILE COLOR DRAINAGE WHICH INCREASED IN AMOUNT WITH TURNING AND PATIENT COUGHING. MIDLINE DRESSING IS INTACT, NO NEW DRAINAGE. ILIOSTOMY HAS SOME MODERATE DRAINAGE, THIN BROWN. ONEIL CARE DONE. HEEL PROTECTORS AND SCDs IN PLACE. VENT PER RT. PATIENT TOLERATING WELL.
--- NOTE | 2022-04-02 22:00 | NUR ---
PATIENT CONTINUES TO BE RESTLESS. PRN KETAMINE PER ORDER. FAMILY IN ROOM. ORAL CARE DONE. CONTINUE TO MONITOR CLOSELY.
--- NOTE | 2022-04-03 00:10 | NUR ---
PATIENT REPOSITIONED TO BACK FOR CARES. PATIENT BECOMES RESTLESS WITH CARES. VS STABLE. TITRATION NOT REQUIRED. PATIENT TOLERATING SEDATION AND PRESSORES WITH PRN PUSHES. UPDATE GIVEN TO .
--- NOTE | 2022-04-03 01:30 | NUR ---
PATIENT REPOSITIONED TO HIS RIGHT SIDE. TOLERATED WELL. ORAL CARE DONE. PATIENT BEGINS TO BE MORE ALERT; ABLE TO ANSWER SIMPLE YES/NO QUESTIONS BY NODDING OR SHAKING HIS HEAD. PATIENT REPORTED HE HAD ABD PAIN. AND INDICATED HE WANTED TO GO BACK TO HIS LEFT SIDE. PATIENT TURNED TO HIGH LEFT SIDE, POSIITONED FOR COMFORT. PATIENT PROVIDED PRN KETAMINE PUSH. ICE PACKS REFILLED AND RE-APPLIED TO ABD. CENTRAL LINE DRESSING CONTINUES TO REQUIRE REENFORCEMENT WITH TAPE ON PROXIMAL BOARDER; PATIENT WILL NEED TO BE SHAVED MORE ON HIS NECK AND NEW DRESSING. ALLOWED PATIENT TO REST FOR NOW. WRIST RESTRAINTS WNL. VENT SETTINGS PER RT; PATIENT TOLERATING WELL. RR 17. BP ADEQUATE. HOURLY URINE OUTPUT EXCEEDS GOAL. FENTANYL 100 MCG/HR PROPOFOL 20 MCG/KG/MIN NOREPI 5 MCG/MIN IV FLUIDS AND ABX PER ORDER.
--- NOTE | 2022-04-03 01:40 | NUR ---
UPDATE PROVIDED TO ON THE UNIT. NO NEW ORDERS. LABS/ORDERS REVIEWED.
--- NOTE | 2022-04-03 04:15 | NUR ---
ORAL CARE DONE. PATIENT MORE ALERT, FOLLOWING SOME INSTRAUCTIONS. ICE PACKS TO ABD. PRN KETAMINE. IV FLUIDS PER ORDER; ADJUSTED TO EQUAL 150 ML/HR WITH OTHER IV INFUSIONS. VENT PER RT. PATIENT TOLERTATING WELL. PRESSORS OFF SINCE 329; PATIENT TOLERATING WELL. MAPS GREATER THAN 60.
--- NOTE | 2022-04-03 06:30 | NUR ---
PATIENT RESTLESS, COMMUNICATES THAT HE WANTS TO LAY ON HIS BACK. ASSIST STAFF TO MOVE BUT ALSO ATTEMPTS TO GRAB ET TUBE. PATIENT IN SOFT WRIST RESTRAINTS AND MONITORED CLOSELY FOR SAFETY. ILIOSTOMY DRESSING LAKING; REDRESSED AT THIS TIME. G-TUBE EMPTIED; GREN BILE LIQUID WITH SEDIMENT NOTED. ONEIL EMPTIED. ADEQUATE URINE OUTPUT. PATIENT IS FLUID POSITIVE WITH EDEMA IN HANDS AND FEET. MD AWARE. LABS DRAWN FROM CENTRAL LINE PER PROTOCOL.
--- NOTE | 2022-04-03 07:48 | EKG ---
[facility] [address] [facility] [place] [address] Signed Normal sinus rhythm Low voltage QRS Cannot rule out Inferior infarct (cited on or before 30-MAR-2022) Abnormal ECG When compared with ECG of 31-MAR-2022 07:40, Minimal criteria for Anterior infarct are no longer present Nonspecific T wave abnormality now evident in Inferior leads Nonspecific T wave abnormality now evident in Anterolateral leads Confirmed by TIMMY NANCE MD ([id number]) on 04/03/2022 7:48:05 AM Electronically Signed By: TIMMY NANCE MD 04/03/22 0748 PATIENT NAME: DAVID POTTS Electrocardiogram DATE OF : 57 PHYSICIAN: TIMMY NANCE MD REPORT #: [id number] REPORT IS CONFIDENTIAL AND NOT TO BE RELEASED WITHOUT AUTHORIZATION
--- NOTE | 2022-04-03 08:00 | NUR ---
Discussed patient SAT/SBT trails with Dr. Delgado and Dr. Villatoro. At this time, will proceeed with trial. mission assessment specialist, medications completed. Patient able to open eyes occassionally and follow 1 out of 3 commands for movement. Propofol reduced to begin SAT/SBT.
--- NOTE | 2022-04-03 10:00 | NUR ---
SAT/SBT completed. Patient placed back on previous vent settings due to patient becoming more eratic with breathing, high/low tidal volumes, increased work of breathing. During trials, eyes would open more to sound stimuli, pt was able to follow commands, squeeze hands, move legs, shake head yes/no to indicated pain was under control and desire to change positions. Mouth care also completed at this time. Trails results given to Dr. Delgado who agreed wtih placing patient back on previous vent settings.
--- NOTE | 2022-04-03 10:50 | NUR ---
Per Dr. Villatoro, turn off fentanyl drip, continue reducing propofol until off, and use PRN morphine order for pain control. Will begin SBT/SAT trial again this afternoon once patient it more awake and able to follow commands. Dr. Delgado notified of updates.
--- NOTE | 2022-04-03 12:10 | NUR ---
PT BEING WEANED FROM VENT-EYES OPEN, GAVE ENCOURAGEMENT AND PRAYER FOR HIS NEED. NO FAMILY PRESENT, WILL FOLLOW
--- NOTE | 2022-04-03 12:45 | NUR ---
Patient now off all sedatives and pain medication drips. Only running maintenance fluids at this time. Patient opens eyes to verbal stimuli and spontaneously. Patient able to follow commands by squeezing hands, moving legs, shaking head yes/no to indicate approrpiate answers. Patient indicates pain, PRN morphine given to help control pain. Restraints still in place for safety. Will retry SBT this afternoon. Patient denies needs at this time. Will continue to monitor patient.
--- NOTE | 2022-04-03 12:57 | NUR ---
Notified Dr. Delgado or starting SBT and low platelet count. No changes at this time, continue to monitor for SBT results. Respiratory at bedside.
--- NOTE | 2022-04-03 13:25 | NUR ---
Patient extubated at 1315. Patient prepped by sitting at 90 degrees, oxygen via NC ready at 3L, patient educated on steps including coughing and suctioning during procedure. Patient able to understand procedure and follow commands/directions. ETT removed without complication. No post removal bleeding noted. Patient continues to answer questions and follow commands post procedure. Dr. Villatoro arrived at bedside after extubation and conversed with patient. Will continue to monitor. Personal items and call light within reach of patient.
--- NOTE | 2022-04-03 14:04 | OR ---
[facility] [address] [place], [place] [address] Signed DATE OF OPERATION: 03/30/2022 SURGEON: Michael Pro MD TIME: 07:10 p.m. PREOPERATIVE DIAGNOSIS: Toxic megacolon, systemic sepsis, need for central venous access. POSTOPERATIVE DIAGNOSIS: Toxic megacolon, systemic sepsis, need for central venous access. PROCEDURE: Ultrasound-assisted right internal jugular central venous catheter placement. ANESTHESIA: 1% lidocaine and fentanyl 50 mcg IV. INDICATION: A 66-year-old white man is admitted by Dr. Sorto with severe systemic sepsis and dilated colon and abdominal tenderness, most consistent with toxic megacolon. Notably, he has no prior history of ulcerative colitis or inflammatory bowel disease. He does not have diarrhea and has not yet had been identified as having any pathogenic stool. He does have known diverticular disease. The CT scan shows markedly dilated colon and process in the region of this sigmoid. He is on pressor agents, norepinephrine, IV antibiotics, and has undergone fluid resuscitation. A central venous catheter is needed for further monitoring and administration of medications as appropriate. I have discussed with the patient and his son, who attends him the risks of bleeding, infection, pneumothorax, and other unforeseen complications related to placement of central venous catheter. He understands and wished to proceed. FINDINGS: Right internal jugular vein was catheterized. Ultrasound was used to better localize the internal jugular vein. Good function of the catheter is noted at conclusion of the procedure with easy withdrawal of dark nonpulsatile blood. A postprocedure chest x-ray shows the tip of the catheter optimally placed in the atriocaval junction. DESCRIPTION OF PROCEDURE: Electronically Signed By: MICHAEL PRO MD 04/03/22 1404 PATIENT NAME: DAVID POTTS OPERATIVE REPORT DATE OF : 57 REPORT #: [id number] PHYSICIAN: MICHAEL PRO MD PCP: Tristan Carrera DO REPORT IS CONFIDENTIAL AND NOT TO BE RELEASED WITHOUT AUTHORIZATION [facility] [address] [place], [place] [address] Signed In a Trendelenburg position in the intensive care unit, the patient's head was turned to the left. The neck was prepared with a chlorhexidine solution and draped sterilely using the PowerPort triple-lumen catheter kit material. Per standard protocol, sterile glove, mask, etc., were used in addition to sterile gown. 1% lidocaine was injected over the right sternocleidomastoid muscle. Initial attempted access without use of ultrasound was unsuccessful and therefore, a SonoSite ultrasound probe with sterile sleeve was then applied. Though, access was attempted in the same area under direct visualization, the internal jugular vein could be identified and dark nonpulsatile blood was noted upon withdrawal under ultrasound guidance. A flexible J-wire was passed down the needle, the needle was removed. The site was incised with an 11 blade and dilated with enclosed blue dilator device. A previously inspected and irrigated Arrow triple-lumen PowerPort catheter was passed over the wire without impediment. Aspiration on the distal port showed dark nonpulsatile blood. This site was flushed with saline. The catheter was withdrawn a few centimeters and enclosed collar device used to secure to the skin in two separate areas. An anti-infective disk was applied as was an OpSite dressing. A postprocedure chest x-ray was later performed, which showed good positioning of the catheter. MD ARIA Mane/MODL /[id number] cc: Manasa Sorto MD Copies: MANASA SORTO MD ~ Electronically Signed By: MICHAEL PRO MD 04/03/22 1404 PATIENT NAME: DAVID POTTS OPERATIVE REPORT DATE OF : 57 REPORT #: [id number] PHYSICIAN: MICHAEL PRO MD PCP: Tristan Carrera DO REPORT IS CONFIDENTIAL AND NOT TO BE RELEASED WITHOUT AUTHORIZATION
--- NOTE | 2022-04-03 14:04 | OR ---
[facility] [address] [place], [place] [address] Signed DATE OF OPERATION: 04/02/2022 SURGEON: Michael Pro MD PREOPERATIVE DIAGNOSES: 1. Ischemic appearing ileostomy. 2. Recent subtotal colectomy with ileostomy for toxic megacolon. POSTOPERATIVE DIAGNOSIS: Mild ischemic changes without sign of infarction. PROCEDURE: Ileoscopy at bedside. ANESTHESIA: Propofol sedation (on ventilator). INDICATIONS FOR THE PROCEDURE: This 66-year-old white man underwent subtotal colectomy with end-ileostomy for profound toxic megacolon, likely related to a localized perforation of the diverticular phlegmon without generalized fecal contamination. A gastrostomy tube was placed as well. He had formation of an end-ileostomy. The patient required vasopressin and norepinephrine preoperatively and intraoperatively and has been maintained with norepinephrine. Attempts at weaning have been cautious. The patient has had a somewhat violaceous looking ileostomy and concern is maintained that splanchnic blood flow is diminished based on the norepinephrine. Aggressive decrease of the medication is underway at this point, and I have recommended ileoscopy to assess the viability of the bowel, given the appearance of the ostomy itself. I have discussed this with his daughter, who is a medical surgical nurse from [place], [place]. The risks of ileoscopy are limited, but do include bleeding, infection, and perforation, she agrees. FINDINGS: There was some mucosal sloughing a bit in the distal most portion, but more proximally good viability was noted overall. DESCRIPTION OF PROCEDURE: At the bedside with the patient on the ventilator and on propofol infusional sedation, the ostomy site was prepared and a conventional Olympus fiberoptic upper endoscope prepared. Lubrication of the tip allowed for insertion into the ileostomy with all due care, passage into the distal segment of the ileum. The distal most portion (near the Electronically Signed By: MICHAEL PRO MD 04/03/22 1404 PATIENT NAME: DAVID POTTS OPERATIVE REPORT DATE OF : 57 REPORT #: [id number] PHYSICIAN: MICHAEL PRO MD PCP: Tristan Carrera DO REPORT IS CONFIDENTIAL AND NOT TO BE RELEASED WITHOUT AUTHORIZATION [facility] [address] [place], [place] [address] Signed ostomy proper) did have some ischemic changes of the mucosa, but passage more fully into the intraabdominal area showed good viability overall. There was no evidence of eileen necrosis by any means. The scope was carefully withdrawn. Attending nurses and the daughter herself was able to view these findings. CONCLUDING DIAGNOSIS: Evidence of some ischemia, but viability is noted. We will wean the pressor agents off completely at this point, and he may require reassessment within the next 24 hours. I do not believe that excision of the ileostomy and re-formation of ileostomy will be necessary at this time. It is noted that his lactic acid level is now normal and other parameters are improving as well. Avoidance of pressor agents to improve enteric flow will be paramount in the next 12 hours. MD ARIA Mane/ALEXL /[id number] cc: Manasa Sorto MD Copies: MANASA SORTO MD ~ Electronically Signed By: MICHAEL PRO MD 04/03/22 1404 PATIENT NAME: DAVID POTTS OPERATIVE REPORT DATE OF : 57 REPORT #: [id number] PHYSICIAN: MICHAEL PRO MD PCP: Tristan Carrera DO REPORT IS CONFIDENTIAL AND NOT TO BE RELEASED WITHOUT AUTHORIZATION
--- NOTE | 2022-04-03 14:04 | CONS ---
[facility] [address] [place], [place] [address] Signed DATE OF CONSULTATION: 03/30/2022 REQUESTING PHYSICIAN: Dr. Sorto. PROBLEM: Probable toxic megacolon. HISTORY OF PRESENT ILLNESS: This 66-year-old white man was reasonably well up until yesterday where he began having abdominal pain and distention. He had cramping and nausea and vomiting, but really no diarrhea. Notably, he had no diarrhea leading up to his problem. He has no underlying history of ulcerative colitis or Crohn disease. He had diminished urination and although no profound diarrhea, did have some loose stool. His symptoms worsened and he presented to the emergency room where he was found to have severe sepsis including a markedly elevated white count greater than 30,000 and 50% band forms and elevated creatinine and CT scan findings notable for colonic dilation with a transition point in the sigmoid area. He had no free air or actual perforation or abscess. He was admitted directly to the hospital and underwent fluid resuscitation under the direction of Dr. Sorto as well as administration of broad-spectrum antibiotics. A nasogastric tube was placed as well. A Sellers catheter was also placed. Aggressive fluid resuscitation and administration of norepinephrine have allowed for improvement of his blood pressure, but he still remains in an 85-90 systolic range with a heart rate of 122. His urine output has begun to improve and his creatinine has decreased. The patient has no prior history of ulcerative colitis or Crohn disease nor any known enteric infection (Shigella, E coli H-[id number], etc). He has not had C difficile. Three weeks ago or more, he did have some loose bowel movements, but no blood per rectum. He has had no abdominal surgery, though he has undergone colonoscopy by me in the past, which showed diverticulosis. His main complaint is mild (currently) diffuse abdominal pain. PAST MEDICAL HISTORY: Includes essential hypertension as well as chronic kidney disease and type 2 diabetes. SOCIAL HISTORY: He does not smoke or use alcohol. ALLERGIES: Include Flagyl. Electronically Signed By: MICHAEL PRO MD 04/03/22 1404 PATIENT NAME: DAVID POTTS CONSULTATION DATE OF : 57 REPORT #: [id number] PHYSICIAN: MICHAEL PRO MD PCP: Tristan Carrera DO REPORT IS CONFIDENTIAL AND NOT TO BE RELEASED WITHOUT AUTHORIZATION [facility] [address] [place], [place] [address] Signed CURRENT MEDICATIONS: At home include Ozempic (semaglutide), allopurinol, losartan, spironolactone, indapamide, doxycycline, isosorbide mononitrate, . REVIEW OF SYSTEMS: Denies any shortness of breath or chest pain. Does feel weak. Has diffuse abdominal pain as noted. PHYSICAL EXAMINATION: GENERAL: A toxic-appearing white man. He is accompanied by his son at the time of my evaluation. VITAL SIGNS: Heart rate currently 122, blood pressure . Norepinephrine drip infusing at 12 mcg. O2 saturation is 93% on 2 L nasal cannula oxygen. HEENT: Trachea is midline. He shows no jugular venous distention. CHEST: Shows no tachypnea. SKIN: On the chest and torso is slightly mottled. ABDOMEN: Mildly diffusely tender, but not markedly so. He does not have generalized peritonitis. LOWER EXTREMITIES: Show minimal cyanosis. LABORATORY STUDIES: Initially at 07:30 today, white count of 33.3 with hematocrit of 61.7, platelets of 276,000, band forms, 51%. Chem profile initially potassium 5.7, a bicarb of 13, creatinine of 2.84 and glucose of 203. Initial lactic acid was 4.4. Liver enzymes were not obtained at that time. Subsequent lab studies at 2000 hours are pending. A COVID serology is negative. Urinalysis shows cloudy urine. He has 2-3 white cells per high-power field. Abdominal CT scan images and report were reviewed in detail. He is noted to have a proximal mid fluid-filled colon distended up to 7.5 cm on the right and 5.5 cm on the left with a transition in the proximal sigmoid, narrowed at the transition wall slightly focally thickened over 40 cm segment. There was considered to be trace fluid in the adjacent area and several small diverticula. There was a small periumbilical hernia noted with small bowel within it without ischemic change on my examination. Kidneys are mildly atrophic. There is a benign-appearing right renal cyst. ASSESSMENT: Clinical findings are consistent with acute toxic megacolon. The typical etiology would include inflammatory bowel disease or other infectious etiologies. He is improving on aggressive fluid resuscitation and pressure support with norepinephrine. I discussed with the patient and his son as well as Dr. Sorto of course the occasional need for urgent subtotal colectomy. He is making progress with the aggressive medical approach and continued close observation would be most appropriate. A central venous catheter was recommended for not only access for monitoring as appropriate. Electronically Signed By: MICHAEL PRO MD 04/03/22 1404 PATIENT NAME: DAVID POTTS CONSULTATION DATE OF : 57 REPORT #: [id number] PHYSICIAN: MICHAEL PRO MD PCP: Tristan Carrera DO REPORT IS CONFIDENTIAL AND NOT TO BE RELEASED WITHOUT AUTHORIZATION [facility] [address] [facility] [place], [place] [address] Signed Declaration of his course of progress or lack thereof will be notable within the next 24-48 hours and consideration might be made for a brief flexible endoscopic evaluation of the lower colon, even without bowel prep to more reasonably characterize the etiology of the problem at least from an Infectious standpoint or one of hypoperfusion. If symptoms should worsen, he may require more urgent surgical intervention otherwise. I have discussed all this with Dr. Sorto, who wishes to proceed with a medical approach at this time and we will be working closely together as the patient progresses through intervention efforts and hopefully improvement. MD ARIA Mane/MODL /[id number] cc: Manasa Sorto MD Copies: MANASA SORTO MD ~ Electronically Signed By: MICHAEL PRO MD 04/03/22 1404 PATIENT NAME: DAVID POTTS CONSULTATION DATE OF : 57 REPORT #: [id number] PHYSICIAN: MICHAEL PRO MD PCP: Tristan Carrera DO REPORT IS CONFIDENTIAL AND NOT TO BE RELEASED WITHOUT AUTHORIZATION
--- NOTE | 2022-04-03 14:39 | NUR ---
Patient resting in bed. Patient complains of pain, PRN medication given. ECHO completed without difficulty. Patient repositioned for comfort. All drains are approrpriately working. Personal items and call light within reach. Patient conversing with staff without difficulty.
--- NOTE | 2022-04-03 16:13 | NUR ---
Patient resting comfortably in bed at this time. Patient is able to take ice chips and let them melt in his mouth without difficulty. Moved up to clear liquid diet. Bedside nursing swallow completed and passed. Patient has no swallowing difficulties at this time. Personal items and call light within reach. Patient able to use call light approrpriately. Patient able to state needs.
--- NOTE | 2022-04-03 19:35 | NUR ---
Patient trialed with SAT/SBT in the morning and was placed back on vent settings after 1.5 hours due to fatigue. All drips for sedation and pain were stopped and a second SAT/SBT was completed. Patient passed and was extubated at 1315 this afternoon. Patient tolerated well and remained on 2-3 L oxygen post extubation for comfort. Currently, patient is resting and states the PRN morphine helps control his pain. Patient is now on clear liquids and accepting PO without difficulty.
--- NOTE | 2022-04-03 20:00 | NUR ---
PATIENT RESTING IN BED. ORIENTED X3. REPORTS ABD PAIN. DISCUSSED PLAN TO GET UP TO CHAIR AND MEDICATE FOR PAIN PRIOR TO THIS. PATIENT DENIED NAUSEA OR SOB. TOLERATING 2L NC AT 100% Sp02. CALL LIGHT IN REACH.
--- NOTE | 2022-04-03 20:37 | NUR ---
PT C/O ABD PAIN HE ARTED 06/01. WAS ABLE TO POINT TO HIS ENTIRE ABDOMEN. HE WAS GIVEN MORPHINE 2 MG IVP FOR PAIN. HIS TYLENOL WAS WAS HUNG ORDERED AND HE WAS GIVEN HIS IV PEPCID. DURING THIS TIME PT DRIFTED OFF TO SLEEP. HE HAS HIS CALL LIGHT IN REACH.
--- NOTE | 2022-04-03 21:00 | NUR ---
PATIENT WAS PROVIDED WITH PRN MORPHINE. PATIENT ABLE TO SIT TO THE EDGE OF THE BED WITH 1PA. PATIENT REQUIRED HEAVY 2PA TO STAND AND PIVOT TO THE CHAIR BUT TOLERATED WELL. PATIENT POSITIONED FOR COMFORT. ICE PACKS APPLIED TO ABD. VS STABLE. PATIENT ON ROOM AIR NOW, TOLERATING WELL. PATIENT'S LUNGS DIMINISHED THROUGHOUT. CRACKLES HEARD IN MID AND LOWER LOBES. PATIENT INSTRCUTED TO USE IS AND WAS DOING SO WITHOUT ASSISTANCE. RACHING ABOUT 500 ON HIS BEST ATTEMPT. PATIENT'S CENTRAL LINE DRESSING IS INTACT. CLAVES CHANGED AND ALL FLUSHED EASILY WITH QUICK BLOOD RETURN. PATIENT HAS IV FLUIDS INFUSING PER ORDER. ONEIL HAS GOOD URINE OUTPUT, CONCENTRATED/JASMYN IN COLOR. G-TUBE HAS PENELOPE BILE LIKE OUTPUT, SAME WITH ILIOSTOMY. PATIENT HAS BEEN BELCHING OCCATIONALLY. MIDLINE INCISION IS COVERED, NO NEW DRAINAGE. PATIENT HAS CALL LIGHT IN REACH.
--- NOTE | 2022-04-04 00:10 | NUR ---
PT WAS READY TO GO BACK TO BED. 2 STAFF ASSISTED PT BACK TO BED. POSITIONED IN LEFT TILT WITH PILLOW SUPPORT AND PILLOW TO HIS ABD. SCD'S BACK ON. PT WAS MEDICATED WITH MORPHINE 2 MG IV BEFORE TRANSFER TO BED AND MORPHINE 2 MG IV ONCE BACK TO BED. CALLL LIGHT IN REACH.
--- NOTE | 2022-04-04 01:13 | NUR ---
PATIENT CONTINUES TO REPORT SEVERE PAIN. DISCUSSED WITH . ONE TIME ORDER FOR ADDITIONAL PAIN COVERAGE RECEIVED.
--- NOTE | 2022-04-04 02:24 | NUR ---
UPDATE PROVIDED TO PATIENT'S DAUGHTER THAT CALLED. PATIENT HAS BEEN REPORTING SOME MILD ITCHING, MOSTLY ON HIS BACK. THIS IS NORMAL ACCORDING TO HIM AND HIS DAUGHTER THE PATIENT HAS SENSITIVE SKIN. PATIENT ASSISTED TO REPOSITION IN BED. REPORTS SOME PAIN RELIEF AND IS ENCOURAGED TO TRY AND SLEEP. PATIENT HAS CALL LIGHT IN REACH. VS STABLE.
--- NOTE | 2022-04-04 03:15 | NUR ---
PT WAS REPOSTIONED FOR COMFORT WITH PILLOWS BEHIND HIS SHOULDERS AND UNDER HIS KNEES. HE SAID HE MORE COMFORTABLE. BED ALARM IS ON. CALL LIGHT IN REACH.
--- NOTE | 2022-04-04 05:00 | NUR ---
PATIENT ASSISTED TO REPOSITION IN BED. TOLERATING ROOM AIR. VS STABLE. ABD ASSESSMENT UNCHANGED. NO NAUSEA. ACTIVE BOWEL SOUNDS. PITTING EDEMA NOTED IN KELVIN FEET. ELEVATED. LABS DRAWN BY TIMMY MYLES.
--- NOTE | 2022-04-04 07:30 | NUR ---
REPORT RECIEVED. PAITIENT RESTING IN BED WITH HOB ELEVATED.
--- NOTE | 2022-04-04 08:00 | NUR ---
ASSESSMENT DONE. PATIENT C/O PAIN AND FEELING VERY WEAK. MIDLINE ABD DRESSING INTACT, ILEOSTONY BAG INTACT WITH SMALL AMOUNT OF THIN RUST COLORED SECRETIONS NOTED. G-TUGE REMAINS TO GRAVITY. RIJ TRIPLE LUMEN CVC CAPPED TIMES 3. SCDS ON ONEIL CATH PATENT WITH JASMYN URINE NOTED. TALKED WITH PATIENT ABOUT POC FOR DAY. PATIENT IS FORGETFUL. IS COOPERATIVE AT THIS TIME. TAKING WATER, DENIES NAUSEA.
--- NOTE | 2022-04-04 09:00 | NUR ---
ASSISTED PATIENT WITH CLEAR LIQ BREAKFAST. REQUESTING PAIN MED FREQUETLY.
--- NOTE | 2022-04-04 10:00 | NUR ---
PHYS THERAPY HERE TO WORK WITH PATIENT.
--- NOTE | 2022-04-04 10:40 | NUR ---
OOB TO CHAIR WITH ASSIST OF TWO STAFF. PATIENT IS SOMEWHAT RESISTANT TO TRANSFER TO CHAIR. PATIENT HAS BEEN IN ROOM. CONTINUES TO TAKE WATER. ENCOUREGED PATIENT TO BE MORE INDEPENDENT WITH TAKING PO. ENC USE OF I.S. VERY POOR EFFORT.
--- NOTE | 2022-04-04 12:00 | NUR ---
ACCUCHECK 196, REG INSULIN 2 UNITS SQ GIVEN. ASSESSMENT UNCHANGED. REMAINS IN CHAIR.
--- NOTE | 2022-04-04 12:40 | NUR ---
BACK TO BED WITH ASSIST. TOLERATED TRANSFER WELL. NOT FUTHER OUTPUT FRON ILEOSTOMY SINCE THIS AM.
--- NOTE | 2022-04-04 13:30 | NUR ---
DR. PRO HERE TO SEE PATIENT. G-TUBE IRRIGATED. WITH LARGE RETURN OF BROWNISH CONTENTS. G-TUBE EMPTIED FOR 1000 ML, DR. PRO AWARE. IV TYLENOL ORDERED. PATIENT TO START ON TPN THIS AFTERNOON. PT SON REMAINS IN ROOM.
--- NOTE | 2022-04-04 15:00 | NUR ---
LABS DRAWN FROM CVC PER ORDERS ANS SENT TO LAB.
--- NOTE | 2022-04-04 16:00 | NUR ---
ASSESSMENT DONE. HAS BETTER EFFORT WITH I.S. TPN HUNG PER ORDERS. MIDLINE ABD DRESSING CHANGED. ALEXIA INTACT. HAS INTERMITTENT HICCUPS.
--- NOTE | 2022-04-04 17:44 | NUR ---
DR. NANCE UPDATED ON PATIENT STATUS. IS AWARE LABS ARE BACK, SHE WILL REVIEW LABS.
--- NOTE | 2022-04-04 17:50 | NUR ---
IV TYLENOL GIVEN FOR PAIN. PATIENT HAS MANY REQUESTS AND NEEDS. HOB ELEVATED. DENEIS NAUSEA, SHORTNESS OF BREATH.
--- NOTE | 2022-04-04 18:59 | NUR ---
HAS BEEN TAKING LARGE AMOUNT OF PO IN, G-TUBE OUTPUT LARGE WELL. PATIENT IS VERY TALKATIVE. TPN, KRIDER INFUSING.
--- NOTE | 2022-04-04 20:00 | NUR ---
PATIENT RESTING IN BED. ASSISTED TO MAKE PHONE CALL. VS STABLE. CALL LIGHT IN REACH.
--- NOTE | 2022-04-04 21:00 | NUR ---
SCHEDULED MEDS PROVIDED PER ORDER. PATIENT RESTING IN BED. DENIED NAUSEA. TOLERATING 1L NC. LUNG SOUNDS ARE CLEAR IN UPPERS DIM IN BASES. ABD IS DISTENDED BUT SOFT. BOWEL SOUNDS HYPOACTIVE. MIDLINE DRESSING INTACT. NO NEW DRAINAGE. G-TUBE SITE WNL, IRRIGATED WITH 50 MLS TAP WATER. ILIOSTOMY SITE WNL, MINIMAL RED DRAINAGE NOTED IN BED. STOMA RED/BROWN IN COLOR. SCDS IN PLACE. ONEIL CARE DONE. TPN/LIPIDS INFUSING.
--- NOTE | 2022-04-04 23:30 | NUR ---
PATIENT UP TO THE RECLINER. 1PA HEAVY [facility]IST [facility] PATIENT IS WEAK BUT USED FWW AND STOOD FOR ABOUT A MINUTE ON HIS OWN. PATIENT POSITIONED FOR COMFORT NEAR THE WINDOW AND PROVIDED WITH ICE. G-TUBE DRAINED, THIN GREEN DRAINAGE. MINIMAL DRAINAGE IN ILIOSTOMY; THIN RED DRAINAGE IN BAG. STOMA IS DARK RED/BROWN IN COLOR. BOWEL SOUNDS ACTIE TO HYPOACTIVE. NO NAUSEA. MIDLINE INCISION IS COVERED. G-TUBE SITE WNL. LUNG SOUNDS ARE CLEAR BUT DIM IN THE BASES PATIENT TITRATED TO RA. IS ENCOURAGED. SCDs OFF WHILE IN CHAIR. EDEMA IN KELVIN FEET IMPROVING. TPN AND LIPIDS INFUSING INTO CENTRAL LINE, SITE WNL. DRESSING INTACT. PRN MORPHINE PROVIDED AFTER TRANSFER, PATIENT REPORTS 10/10 PAIN IN ABD AND JOINTS.
--- NOTE | 2022-04-05 00:30 | NUR ---
PATIENT RETURNED TO THE BED FROM THE RECLINER. PATIENT ABLE TO STAND WITH 1PA AND FWW. PATIENT REPORTS 10/10 PAIN. PRN MORPHINE PROVIDED. PATIENT POSITIONED ON HIS LEFT SIDE. WARM BLANKET UNDER HIS LEFT HIP FOR COMFORT. VS STABLE. CALL LIGHT IN REACH.
--- NOTE | 2022-04-05 03:00 | NUR ---
PATIENT CALLS FREQUENTLY FOR REQUEST TO HAVE PILLOWS MOVEDS, BACK SCRATCHED, LIGHTS ADJUSTED AND OTHER SMALL REQUEST. ENCOURAGED PATIENT TO REST. LIGHTS DIMMED. PATIENT HAS NOT APPEARED TO SLEEP THIS SHIFT.
--- NOTE | 2022-04-05 05:19 | NUR ---
PATIENT PROVIDED WITH SHOWER CAP AND WARM WASH CLOTH TO CLEAN HIS FACE. PATIENT BRUSHED HIS OWN TEETH AND ASSISTED WITH THESE CARES. PATIENT IS IN GOOD SPIRITS AND VERY TALKATIVE. DOES NOT REPORT PAIN OR NAUSEA. APPEARS COMFORTABLE IN THE BED. FRESH ICE WATER PROVIDED.
--- NOTE | 2022-04-05 06:41 | NUR ---
LABS DRAWN FROM CENTRAL LINE PER PROTOCOL. PATIENT IS AWAKE AND DRINKING ICED TEA. DOES NOT REPORT PAIN. G-TUBE AND ONEIL AMPTIED. NEW OSTOMY BAG APPLIED. SCANT DRAIAGE NOTED, RED/BROWN COLOR. STOMA IS DARK RED /BROWN. CLEANED AND IRRIGATED WITH SALINE FLUSH.
--- NOTE | 2022-04-05 07:24 | NUR ---
LABS AND UPDATE PROVIDED TO
--- NOTE | 2022-04-05 07:30 | NUR ---
REPORT RECIEVED. PATIENT IS RESTING WITH HOB ELEVATED. TPN INFUSING.
--- NOTE | 2022-04-05 08:00 | NUR ---
ASSESSMENT DONE. ACCUCHECK 208. 3 UNITS INSULIN GIVEN. PATIENT IS REQUESTING ICE TEA AND WATER. THESE GIVEN. RIJ CVC INTACT, TPN INFUSING. MIDLINE ABD DRESSING INTACT, OSTOMY BAG INTACT,NO DRAINAGE NOTED, G-TUBE TO GRAVITY BAG. TALKED WITH PATIENT ABOUT POC FOR DAY, INDICATES UNDERSTANDING. WILL GIVE PATIENT IV TYLENOL WHEN AVAILABLE.
--- NOTE | 2022-04-05 10:35 | NUR ---
PHYS THERAPY HERE TO WORK WITH PATIENT.
--- NOTE | 2022-04-05 11:00 | NUR ---
PATIENT SITTING IN CHAIR. CONTINUES TO TAKE ICE TEA AND WATER.
--- NOTE | 2022-04-05 12:24 | NUR ---
NO CHANGES, IN ROOM. PATIENT IS REQUESTING PAIN MEDICATION. WILL GIVE MORPHINE, TO SOON TO GIVE IV TYLENOL.
--- NOTE | 2022-04-05 12:35 | NUR ---
MORPHINE 2 MG IV GIVEN FOR C/O ABD PAIN.
--- NOTE | 2022-04-05 13:10 | NUR ---
NAPPING IN CHAIR.
--- NOTE | 2022-04-05 14:00 | NUR ---
DR. PRO HERE TO SEE PATIENT. ORDERS RECIEVED. PATIENT CONTINUES TO SIT IN CHAIR.
--- NOTE | 2022-04-05 14:20 | NUR ---
BACK TO BED WITH ASSIST. ALLEVYN ON COCCYX REMAINS INTACT. DENIES INCREASED SHORTNESS OF BREATH WITH EXERTION. G-T IRRIGATED PATIENT C/O INCREASED ABD TIGHTNESS. PATIENT SAID HW WAS GOING TO TAKE LESS WATER/TEA NOW. WILL CONTINUE TO MONITOR G-TUBE OUTPUT.
--- NOTE | 2022-04-05 16:00 | NUR ---
ASSESSMENT UNCHANGED. RESTING IN BED. NO STOOL NOTED IN OSTOMY BAG. G-TUBE PATENT. ONEIL CATH PATENT. RIJ PATENT, MIDLINE ABD DRESSING INTACT. SCD'S ON. FEW BOWEL HEARD. TPN INFUSING AT 83 ML/HR.
--- NOTE | 2022-04-05 20:00 | NUR ---
PATIENT RESTING IN BED. PROVIDED WITH WARM BLANKET PER REQUEST. PATIENT QUESTIONING A SLEEP AID AND REQUEST PRN PAIN MEDS FOR 10/[address] WILL REVIEW WITH DR. NANCE. PATIENT AWARE OF PLAN. CALL LIGHT IN REACH.
--- NOTE | 2022-04-05 21:00 | NUR ---
PATIENT PROVIDED WITH PRN PAIN MEDS FOR 10/10 PAIN IN HIS BACK AND ABD. PATIENT DENIES NAUSEA. ONE TIME DOSE OF BENADRYL PROVIDED. G-TUBE SITE CARE DONE. ONEIL AND G-TUBE EMPTIED. G-TUBE IRRIGATED. ABD IS SOFT, MODERATELY DISTENDED. HYPOACTIVE BOWEL SOUNDS. PATIENT LUNGS ARE CLEAR, TOLERATING ROOM AIR. SCDs IN PLACE. PATIENT TURNED TO LEFT SIDE. POSITIONED FOR COMFORT. EAR PLUGS PROVIDED. PATIENT APPEARS COMFORTABLE. CALL LIGHT IN REACH. IV FLUIDS INFUSING PER ORDER. CENTRAL LINE SITE WNL.
--- NOTE | 2022-04-05 23:09 | NUR ---
PATIENT CALLING OUT FOR STAFF. WHEN RN ENTERED ROOM PATIENT HAD TURNED TO HIS RIGHT SIDE. CALL LIGHT LAYING ON BED BEHIND HIM. AND DUE TO SIDERAIL BEING DOWN WAS UNABLE TO USE THAT CALL LIGHT. PATIENT APPEARS CALM BUT REPORTS FEELING ANXIOUS. ASSISTED PATIENT TO REPOSITION FOR COMOFRT. CALL LIGHT IN HAND. BOTH SIDE RAILS UP FOR BACK UP CALL LIGHT. PATIENT DENIED OTHER NEEDS.
--- NOTE | 2022-04-06 00:19 | NUR ---
PATIENT RESTING WITH EYES CLOSED. APPEARS COMFORTABLE. WOKE WITH RN IN ROOM. PRN PAIN MEDS PROVIDED FOR 10/10 ABD PAIN. PATIENT REQUEST MORE BENEDRYL. DISCUSSED 1 TIME ORDER RESTRICTIONS AND ENCOURAGED PATIENT TO DISCUSS WITH MD IN THE MORNING. PATIENT DENIED NEED FOR REPOSITIONING. VS STABLE. ENCOURAGED PATIENT TO REST.
--- NOTE | 2022-04-06 03:00 | NUR ---
patient inquired about prn pain meds for pain 06/01. discussed pain management and educated on prn times. patient verbalized understanding. accu check done.
--- NOTE | 2022-04-06 03:42 | NUR ---
patient called to see if he had received pain medication yet. reminded patient of the pain management plan and patient verbalized understanding.
--- NOTE | 2022-04-06 04:30 | NUR ---
PATIENT PROVIDED WITH PRN PAIN MEDS FOR 10/10 ABD/GENERALIZED PAIN. PATIENT THEN COMPLAINED OF NAUSEA ABOUT 15 MINS LATER. PRN ZOFRAN PROVIDED. PATIENT ABLE TO REST.
--- NOTE | 2022-04-06 06:30 | NUR ---
PATIENT RESTING WITH EYE'S CLOSED. WAKES EASILY. VS STABLE. LABS DRAWN. ONEIL EMPTIED, G-TUBE EMPTIED, NO OUTPUT IN ILIOSTOMY.
--- NOTE | 2022-04-06 07:30 | NUR ---
REPORT RECIEVED. PATIENT IS RESTING IN BED. TPN INFUSING TO RIJ CVC.
--- NOTE | 2022-04-06 08:00 | NUR ---
CONTINUES TO REST, C/O NAUSEA AND ABD PAIN. REQUESTING PAIN PED, WILL GIVE IV TYLENOL. G-TUBE TO GRAVITY, IRRIGATED WITH 30 ML WATER. MIDLINE ABD DRESSING INTACT, ILEOSTOMY BAG INTACT WITH SMALL AMOUT OF REST COLORED THIN SECRETIONS. BOWEL SOUNDS ACTIVE. ONEIL CATH PATENT WITH CONCENTRATED URINE. SCD'S ON RIJ CVC TRIPLE LUMEN CATH DRESSING INTACT WITH TPN INFUSING. TWO PORTS OPEN. TALKED WITH PATIENT ABOUT POC FOR DAY, POSSIBLE TRANSFER TO MED-SURG TODAY.
--- NOTE | 2022-04-06 09:20 | PATH ---
[facility] [address] [place], [place] [address] Signed SPECIMEN(S): A TOTAL COLON SPECIMEN(S): B EXPLANTED MESH ABDOMINAL WALL SPECIMEN SOURCE: A. TOTAL COLON B. EXPLANTED MESH ABDOMINAL WALL CLINICAL HISTORY: Severe sepsis. Explanted mesh abdominal wall. FINAL PATHOLOGIC DIAGNOSIS: A. Total colon: - Colon with patchy ischemic colitis and focal necrosis. - Focal diverticulosis coli. - Polypoid necrotic colonic mucosa with inspissated mucin. - Negative for unequivocal atypical features or malignancy on these sections. - Focal adherent synthetic mesh. B. Explanted mesh abdominal wall: - Synthetic mesh with adherent fibrosclerotic tissue with reactive features and focal mixed inflammation. COMMENT: As part of the [facility] [employer] Program, the case has been reviewed by a second Pathologist. [id number] MICROSCOPIC EXAMINATION: Histologic sections of all submitted blocks are examined by light microscopy. These findings, together with the gross examination, support the pathologic diagnosis. GROSS DESCRIPTION: Two specimens are received in two containers, labeled "RB." A. The specimen, labeled "RB, A," and designated on the requisition "total colon, severe sepsis," is received in formalin and consists of a previously opened, 141.2 cm long, from 6.2 up to 4.6 cm in circumference colonic segment with attached terminal ileum, and adipose tissue up to 19.8 cm wide. The proximal terminal ileum margin is closed by a 4.6 cm long staple line which is removed and the underlying tissue is inked orange. The distal colonic margin is closed by a previously incised and partially fragmented, 3.2 cm long staple line which is PATIENT NAME: DAVID POTTS PATHOLOGY DATE OF : 57 REPORT #: [id number] PHYSICIAN: CHARLES PATHOLOGY PCP: Tristan Carrera DO REPORT IS CONFIDENTIAL AND NOT TO BE RELEASED WITHOUT AUTHORIZATION [facility] [address] [place], [place] [address] Signed removed and the underlying tissue is inked blue. A grossly definitive appendix is not identified, however a possible appendiceal remanent is identified. Adhered to the adipose tissue is an ellipsoid, 6.7 x 2.1 x 0.4 cm piece of an encased, clear synthetic mesh-like material within overlying, irregularly-shaped, jones-white, 4.2 x 3.2 cm, smooth connective tissue piece that is without a discrete mass/lesion. The colonic serosa is jones-white to black discolored, smooth, and glistening. A transmural defect is not grossly identified. The colonic mucosa is dark brown to black discolored with a markedly loss of folds. The discoloration and loss of folds grossly appears to involve the distal colonic margin. Additionally, on the colonic mucosa are two hemorrhagic, polypoid excrescences that are 2.2 and 2.0 cm in greatest dimension. The excrescences are 7.2 cm from the distal colonic margin and do not grossly appear to invade past the mucosa into the submucosa, muscularis, or into the attached adipose tissue. Lastly the colon has multiple outpouchings consistent with diverticula. The outpouchings are without gross evidence of perforation or abscess. The outpouchings are 0.5 cm from the distal colonic margin and 26.7 cm from the ileocecal valve. An additional discrete mass/lesion is not grossly identified. The attached adipose tissue is briefly palpated for lymph nodes and no lymph nodes are grossly identified. The terminal ileum is 4.2 cm long, 2.2 cm in diameter, and the terminal ileum serosa is jones to brown discolored, smooth, glistening. The terminal ileum mucosa is pink to brown discolored with a loss of folds. The discoloration and loss of folds grossly appears to involve the proximal terminal ileum margin. An additional discrete mass/lesion is not grossly identified. Lead Applications Developer sections are submitted as follows: (A1) - smooth connective tissue piece attached to possible mesh-like material (A2-A3) - colonic polyps (A4) - colonic outpouchings (A5-A6) - food service representative section of colonic mucosa (A7) - ileocecal valve (A8) - perpendicular sections at the distal colonic and the proximal terminal ileum margins (A9) - terminal ileum (A10) - possible appendiceal remanent PATIENT NAME: DAVID POTTS PATHOLOGY DATE OF : 57 REPORT #: [id number] PHYSICIAN: CHARLES BURT PCP: Tristan Carrera DO REPORT IS CONFIDENTIAL AND NOT TO BE RELEASED WITHOUT AUTHORIZATION [facility] [address] [place], [place] [address] Signed B. The specimen, labeled "RB, B," and designated on the requisition "explanted mesh abdominal wall," is received in formalin and consists of an irregularly-shaped, markedly ragged, 14.5 x 9.6 x 2.8 cm piece of fibrofatty tissue with a central, ragged, irregularly-shaped, 9.7 x 8.7 x 0.4 cm piece of clear, firm, synthetic mesh-like material that is encased in fibrofatty and fibroglandular tissue. The specimen is cross-sectioned and a discrete mass/lesion is not grossly identified. Lead Applications Developer sections are submitted in one cassette (B1). AI (under the direct supervision of a pathologist) The Gross Description was prepared using a voice recognition system. The report was reviewed for accuracy; however, sound-alike word errors, addition and/or deletions may occur. If there is any question about this report, please contact Client Services. PERFORMING LABORATORY: The technical component was performed by [employer], [address] [place] [address] (CLIA# [id number]). Professional interpretation was performed by [facility], [address] [place] [id number] (CLIA#: [id number]). Diagnostician: Manuel Cardoso MD Pathologist Electronically Signed 04/06/2022 Copies: ~ PATIENT NAME: DAVID POTTS PATHOLOGY DATE OF : 57 REPORT #: [id number] PHYSICIAN: CHARLES BURT PCP: Tristan Carrera DO REPORT IS CONFIDENTIAL AND NOT TO BE RELEASED WITHOUT AUTHORIZATION
--- NOTE | 2022-04-06 10:00 | NUR ---
DR. PRO HERE TO SEE PATIENT, TRANSFER ORDERS TO MED-SURG RECIEVED.
--- NOTE | 2022-04-06 10:07 | NUR ---
RESTING, NO CHANGES.
--- NOTE | 2022-04-06 11:00 | NUR ---
SPONGE BATH GIVEN. AFTER BATH OOB TO CHAIR WITH ASSIST. IS WEAK AND UNSTEADY ON FEET, USING WALKER.
--- NOTE | 2022-04-06 11:45 | NUR ---
REMAINS IN CHAIR. NAPPING. IN ROOM.
--- NOTE | 2022-04-06 13:08 | NUR ---
PATIENT ARRIVED FROM CCU ROOM 129 TO MED SURG ROOM 112 AT 1255 VIA CHAIR. PATIENT WAS ABLE TO MOVE FROM CHAIR TO BED WITH 2PA. TPN IS INFUSING TO RIGHT NECK CENTRAL LINE. PATIENT BRUSHED TEETH, WARM BLANKETS PROVIDED. PATIENT RATES ABD PAIN 10/10 AND IS READY FOR MEDICATION AT THIS TIME.
--- NOTE | 2022-04-06 13:59 | NUR ---
PATIENT GIVEN IV TYLENOL FOR 10/10 ABDOMINAL PAIN.
--- NOTE | 2022-04-06 14:24 | NUR ---
THIS RN IN TO SEE PATIENT PATIENT CURRENTLY SLEEPING AND IV TYLENOL IS COMPLETE. PATIENT WOKE UP WHILE THIS RN WAS FLUSHING THE RIJ PORT WITH NS. PATIENT PAIN IS 4/10 AND PATIENT SAYS HE IS JUST SLEEPY AND WOULD LIKE SOME MORE BLANKETS, THIS RN REPLACED PATIENT'S OLD BATH BLANKETS WITH 2 NEW WARM ONES AND PATIENT THANKED ME. PATIENT HAD NO OTHER CARE NEEDS AT THIS TIME. G-TUBE DRAINING DARK GREEN FLUID AND ONEIL PUTTING OUT QS URINE. AFTERNOON ASSESSMENT COMPLETE. CALL LIGHT IS IN REACH.
--- NOTE | 2022-04-06 15:22 | NUR ---
PATIENT CALLED HAVING 10/10 ABD/GENERALIZED PAIN AFTER BEING REPOSITIONED BY NURSING STAFF AT HIS REQUEST. 2MG SIVP MORPHINE GIVEN TO THE PATIENT BY THIS RN. PATIENT THANKED THIS RN AND DENIED ANY OTHER CARE NEEDS AT THIS TIME. CALL LIGHT IS IN REACH.
--- NOTE | 2022-04-06 16:52 | NUR ---
PATIENT NEW TPN AND LIPIDS ARE UP AND INFUSING. PATIENT'S PAIN IS DOWN TO 2/10. PATIENT JUST HAD 2 MALE VISITORS ARRIVE. PATIENT HAD NO OTHER CARE NEEDS FROM THIS RN AT THIS TIME. CALL LIGHT IS IN REACH.
--- NOTE | 2022-04-06 17:48 | NUR ---
PATIENT CALLED HAVING 9/10 PAIN IN HIS HIPS. IV TYLENOL HUNG AND INFUSING AND PATIENT SAID HE WAS NAUSEATED WELL AND 4MG SIVP ZOFRAN WAS GIVEN. PATIENT HAD NO OTHER NEEDS OF THIS RN AT THIS TIME. SYLVIA WORKMANCIE IN TO DO VS AND I+O. CALL LIGHT IS IN REACH.
--- NOTE | 2022-04-06 18:15 | NUR ---
PT LAYING DOWN IN BED. VITAL SIGNS AND I'S AND O'S DONE. ICE WATER REFERSHED. NO FURTHER NEEDS AT THIS TIME. CALL LIGHT WITHIN REACH.
--- NOTE | 2022-04-06 19:16 | NUR ---
REPORT RECEIVED FROM DAY SHIFT RN. PT LYING IN BED WITH EYES CLOSED. RESPIRATIONS EVEN. IVF INFUSING WNL. WHITE BOARD UPDATED. CALL LIGHT IN REACH.
--- NOTE | 2022-04-06 19:40 | NUR ---
REPORT RECEIVED FROM DAY SHIFT RN. PT LYING IN BED ALERT AND ORIENTED. REPORTS NAUSEA AND ABD PAIN 05/02. PRN FOR PAIN AND NAUSEA ADMIN PER EMAR. NO FURTHER NEEDS AT THIS TIME. CALL LIGHT IN REACH. WHITE BOARD UPDATED.
--- NOTE | 2022-04-06 21:17 | NUR ---
EVENING ASSESSMENT COMPLETE. SCHEDULED MEDS ADMIN PER EMAR. TPN AND LIPIDS INFUSING PER ORDER. PT DENIES NAUSEA. REPORTS ABD PAIN 9/10 AT REST DESPITE PRN MORPHINE. DECLINES WHEN OFFERED TO CALL MD FOR ADDITIONAL PAIN MED. ICE PACK PROVIDED FOR ABD. ABD DISTENDED. BOWEL TONES HYPOACTIVE. OSTOMY WITH SCANT AMOUNT BROWNISH PINK DRAINAGE. MIDLINE ABD INCISION WITH DRESSING INTACT. G-TUBE PATENT WITH GREEN COLORED DRAINAGE. ONEIL PATENT WITH QS CONCENTRATED YELLOW URINE. RIGHT IJ PULSATILE FLUSH WITH NS, BRISK BLOOD RETURN NOTED IN BOTH LUMENS. SCD'S IN PLACE. ASSISTED PT TO REPOSITION IN BED. ICE WATER PROVIDED FOR COMFORT. PT REQUESTS PRN FOR SLEEP. DR. NANCE TO PUT IN ORDERS. DENIES QUESTIONS OR CONCERNS. CALL LIGHT IN REACH.
--- NOTE | 2022-04-06 23:20 | NUR ---
CALL LIGHT ANSWERED. PT REPORTS ABD PAIN 06/01. PRN FOR PAIN ADMIN PER EMAR. FRESH ICE PACK PROVIDED. NO FURTHER NEEDS. CALL LIGHT IN REACH.
--- NOTE | 2022-04-07 01:00 | NUR ---
CALL LIGHT ANSWERED. PT REPORTS ABD PAIN 9/10 AND NAUSEA. FLOAT RN IN ROOM TO MEDICATE FOR PAIN AND NAUSEA. FRESH ICE WATER PROVIDED. FRESH ICE TO ABD.
--- NOTE | 2022-04-07 03:15 | NUR ---
CALL LIGHT ANSWERED. PT REPORTS ABD PAIN 9/10 AND NAUSEA. PRN ADMIN PER EMAR FOR PAIN AND NAUSEA. ICE WATER AND FRESH ICE PACK TO ABD PROVIDED. ONEIL EMPTIED OF 900 ML CONCENTRATED URINE. G-TUBE FLUSHED PER ORDER. 950 ML GREENISH BROWN FOUL SMELLING LIQUID EMPTIED FROM G-TUBE. OSTOMY WITH SMALL AMOUNT BROWN LIQUID DRAINAGE. MIDLINE ABD DRESSING INTACT. RIGHT IJ PATENT. TPN AND LIPIDS INFUSING PER ORDER.
--- NOTE | 2022-04-07 04:30 | NUR ---
CALL LIGHT ANSWERED. 2PA WITH FWW TO RECLINER. PT WEAK. GAIT STEADY. LEGS ELEVATED. CALL LIGHT IN REACH.
--- NOTE | 2022-04-07 05:20 | NUR ---
PT BACK TO RECLINER WITH 2PA. VS AND I&O COMPLETE. MORNING LABS DRAWN FROM RIGHT IJ PER PROTOCOL.
--- NOTE | 2022-04-07 06:49 | NUR ---
CALL LIGHT ANSWERED. PT STATES "I'M AT THE END OF MY ROPE." REPORTS ABD PAIN 07/03 AND NAUSEA. UPON ENTERING ROOM PT WITH EYES CLOSED SNORING SOFTLY. PRN FOR PAIN AND NAUSEA ADMIN PER EMAR. FRESH ICE PACK AND ICE WATER PROVIDED.
--- NOTE | 2022-04-07 07:27 | NUR ---
SHIFT REPORT GIVEN TO THIS RN BY SHAR COMBS. PATIENT RESTING QUIETLY SUPINE, EYES CLOSED, RESPIRATIONS REGULAR AND EVEN WITH LIGHT SNORE, CALL LIGHT IS IN REACH. PATIENT HAS NO NURSE CARE NEEDS AT THIS TIME.
--- NOTE | 2022-04-07 09:14 | NUR ---
SYLVIA MARIANO IN PERFORMING VS AND GETTING FSBS AT THIS TIME. CALL LIGHT IS IN REACH.
--- NOTE | 2022-04-07 10:04 | NUR ---
PATIENT HAS BEEN SLEEPING MOST OF THE MORNING SINCE REPORT. THIS RN IN AND AM ASSESSMENT COMPLETE. PATIENT HAVING 9/10 ABD PAIN AND GENERAL BODY ACHES. PATIENT HAS NO FEVER. PATIENT IS ALSO NAUSEATED. 10MG SIVP COMPAZINE GIVEN ALONG WITH 2MG SIVP MORPHINE FOR THE PAIN. G-TUBE LUSHED WITH 50MLS WATER AND THE DRAINAGE THIS MORNING IS MORE BROWN THAN GREEN LIKE IT WAS YESTERDAY. OTHER AM MEDS GIVEN. RIGHT IJ FLUSHED WITH 20MLS NS. THIS RN INFORMED PAITENT HE WAS GOING TO NEED TO GET UP AND TRY TO WALK A LITTLE TODAY TO TRY AND GET HIS BOWELS TO WAKE UP. PATIENT'S BT HYPOACTIVE AND LESS ACTIVE THAN WHAT I LISTENED TO YESTERDAY. PATIENT OSTOMY STOMA REMAINS KIND OF JACK IN APPERANCE AND HAD ASHLEY THE CHARGE NURSE LOOK AT IT WELL. THE STOMA DOES NOT LOOK FLAT IT DID YESTERDAY. PATIENT DENIED ANY OTHER NEEDS AT THIS TIME. THIS RN INFORMED NATHALY THE PT THAT PATIENT HAD JUST BEEN MEDICATED FOR PAIN AND NAUSEA, SO THE SOONER SHE COULD SEE HIM THE BETTER HE WOULD PROBABLY DO. CALL LIGHT IS IN REACH.
--- NOTE | 2022-04-07 11:20 | NUR ---
PATIENT HAS BEEN SLEEPING SINCE HIS PAIN AND NAUSEA MEDS. NATHALY FROM PT IS IN WITH PATIENT AT THIS TIME FOR HIS PHYSICAL THERAPY.
--- NOTE | 2022-04-07 11:30 | NUR ---
Spoke with pt about plan for when he is ready for dc. He states he thinks he will be able to go home. Discussed I nadia help with ordering supplies for his ostomy and also for his feeding tube if this is his only source of food it is covered by insurance. We also discussed a SNF if he is unable to walk. 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 He states he will have to see how he is doing on discharge if he will be able to care for himself and his .
--- NOTE | 2022-04-07 12:21 | NUR ---
THIS RN IN TO CHECK ON PATIENT. PATIENT SITTING UP IN THE CHAIR AND HAS NO C/O PAIN OR NAUSEA AT THIS TIME. PATIENT ASKED FOR THE ROOM PHONE AND THIS RN GOT THE PHONE AND DIALED HIS FOR HIM. WARM BLANKET GIVEN TO COVER PATIENT'S LEGS. PATIENT DENIED ANY OTHER CARE NEEDS AT THIS TIME. CALL LIGHT IS IN REACH.
--- NOTE | 2022-04-07 12:41 | NUR ---
PATIENT CALLED WANTING TO GO BACK TO BED. THIS RN DISCUSSED WITH THE PATIENT HE HAD NOT BEEN OUT OF BED THAT LONG AND THAT HE REALLY NEEDED TO STAY UP FOR AWHILE LONGER AND PATIENT VERBALIZED UNDERSTANDING. PATIENT HAS A C/O NAUSEA AND 12.5MG IV PHENERGAN GIVEN IN 20MLS NS PER PROTOCOL. PATIENT IS GOING TO TRY AND TAKE A LITTLE NAP NOW. CALL LIGHT IS IN REACH.
--- NOTE | 2022-04-07 13:47 | NUR ---
PT ASLEEP, DID NOT DISTURB. WILL FOLLOW
--- NOTE | 2022-04-07 14:30 | NUR ---
THIS RN INFORMED PATIENT IS UP FOR POTENTIAL DC IF CLEARED BY PT. AWAITING PT TO ARRIVE FOR EVAL. PATIENT HAS NOT BEEN UP OUT OF BED SINCE HE ARRIVED ON THE UNIT. RESTING QUIETLY AT THIS TIME. EYES CLOSED. RESPIRATIONS ARE REGULAR AND EVEN. CALL LIGHT IN REACH.
--- NOTE | 2022-04-07 15:48 | NUR ---
PT REPORT 9/10 ABD PAIN, PRN PAIN MED PROVIDED. MOUTH SWABS PROVIDED. NO OTHER NEEDS. CALL LIGHT IN REACH.
--- NOTE | 2022-04-07 16:30 | NUR ---
THIS RN IN AND CHANGED OUT TPN TUBING ANF HUNG NEW BAG AND FILTER IS IN PLACE. ALL PORTS OF THE RIJ CLAVES CHANGED AND FLUSHED WITH 20MLS NS EACH. ALL PORTS STILL DRAW BLOOD. PATIENT HAS NO CARE NEEDS AT THIS TIME. CALL LIGHT IS IN REACH.
--- NOTE | 2022-04-07 17:22 | NUR ---
THIS NURSE IN AND DID AFTERNOON ASSESSMENT. G-TUBE NOW CLAMPED, BUT THIS RN CALLED AND INFORMED HIM THE CURRENT DRAINAGE THAT WAS COMING OUT THE G-TUBE HAD CHANGED FROM GREEN TO BROWN AND IS SMELLING LIKE THE SAME DRAINAGE FROM THE ILEOSTOMY. VERBALIZED UNDERSTANDING AND SAID TO LEAVE IT CLAMPED FOR NOW AND CONTINUE WITH THE CLEAR LIQUID DIET. SO G-TUBE FLUSHED WITH 50MLS WARM TAP WATER AND CLAMPED. PATIENT GIVEN A NEW GLASS OF ICE TEA WITH LEMON THAT HE REQUESTED. [facility] [place], INFORMED OF THE DISCUSSION WITH . PATIENT RESTING QUIETLY AT THIS TIME. NO C/O NAUSEA OR PAIN AT THIS TIME. CALL LIGHT IN REACH.
--- NOTE | 2022-04-07 18:12 | NUR ---
PATIENT HU AND SAYS HE IS HAVING 9/10 ABD PAIN AND IV TYLENOL HUNG AND STARTED. PATIENT ALSO SAID HE WAS NAUSEATED AND 4MG IV ZOFRAN GIVEN. PATIENT DENIED ANY OTHER CARE NEEDS AT THIS TIME. CALL LIGHT IS IN REACH.
--- NOTE | 2022-04-07 18:47 | NUR ---
PATIENT IV TYLENOL IS IN AND PATIENT'S NAUSEA IS GETTING BETTER AND PAIN IS STARTING TO EASE UP. PATIENT HAS NO OTHER NURSE CARE NEEDS AT THIS TIME. CALL LIGHT IS IN REACH.
--- NOTE | 2022-04-07 19:19 | NUR ---
REPORT RECEIVED FROM DAY SHIFT RN. PT LYING IN BED RESTING WITH EYES CLOSED. RESPIRATIONS EVEN. WHITE BOARD UPDATED. CALL LIGHT IN REACH.
--- NOTE | 2022-04-07 19:28 | NUR ---
THIS RN CALLED PATIENT'S AND ASKED IF ANYONE WOULD BE ABLE TO BRING UP HIS CPAP MACHINE I HAVE NOT SEEN HER TODAY. PATIENT'S UNABLE TO DRIVE AND HAS NOBODY TO BRING THE CPAP UP TONIGHT, BUT WILL BRING IT IN TOMORROW. THIS RN PASSED THIS INFOR ON TO INNA THE NIGHT RN AND SHE WILL DISCUSS OPTIONS WITH RT.
--- NOTE | 2022-04-07 20:46 | NUR ---
EVENING ASSESSMENT COMPLETE. SCHEDULED MEDS ADMIN PER EMAR. PT REPORTS NAUSEA AND ABD PAIN 10/10. PRN FOR PAIN AND N/V ADMIN PER EMAR. RIGHT IJ PATENT WITH BRISK BLOOD RETURN IN BOTH LUMENS. TPN INFUSING PER ORDER. MIDLINE ABD DRESSING INTACT WITH OLD DRAINAGE. ABD DISTENDED. BOWEL TONES ACTIVE. G-TUBE FLUSHED AND CLAMPED. ONEIL PATENT WITH QS CONCENTRATED URINE. ONEIL CARE COMPLETE. OSTOMY WITH 250 ML BROWN LIQUID. PT UNABLE TO BRING HOME CPAP TONIGHT, WILL BRING TOMORROW. CPAP SET UP BY RT. MASK IN PLACE. PT DENIES QUESTIONS OR CONCERNS. CALL LIGHT IN REACH.
--- NOTE | 2022-04-07 23:07 | NUR ---
CALL LIGHT ANSWERED. PT REQUESTING PRN FOR PAIN. DISCUSSED PAIN MEDS NOT DUE TIL AFTER MIDNIGHT. PT AGREEABLE TO WAIT. ICE PACK PROVIDED FOR ABD. SCHEDULED BENADRYL ADMIN AT THIS TIME. NO FURTHER NEEDS. CALL LIGHT IN REACH.
--- NOTE | 2022-04-08 00:32 | NUR ---
CALL LIGHT ANSWERED. PT REPORTS ABD PAIN 10/10 AND NAUSEA. PRN FOR PAIN ADMIN PER EMAR. ICE WATER PROVIDED PER REQUEST. PT REPORTS NOT BEING ABLE TO TOLERATE HOSPITAL CPAP. DENIES FURTHER NEEDS. CALL LIGHT IN REACH.
--- NOTE | 2022-04-08 02:17 | NUR ---
BLOOD SUGAR CHECK 247. SLIDING SCALE INSULIN ADMIN. PRN FOR PAIN ADMIN FOR 1010 ABD PAIN. COVID SWAB DONE BY RT. G-TUBE FLUSHED WITH TAP WATER. STRONG FOUL SMELL NOTED UPON OPENING G-TUBE CAP. OSTOMY EMPTIED OF 200 ML BROWN LIQUID. FRESH ICE WATER PROVIDED. NO FURTHER NEEDS.
--- NOTE | 2022-04-08 04:36 | NUR ---
PT RESTING IN BED WITH EYES CLOSED. RESPIRATIONS EVEN. CALL LIGHT IN REACH.
--- NOTE | 2022-04-08 05:21 | NUR ---
CALL LIGHT ANSWERED. PT REPORTS HICCUPS AND NAUSEA. PRN FOR N/V ADMIN PER EMAR. PT STATES "NAUSEA HAS BEEN CONSTANT." DISCUSSED DECREASING WATER INTAKE. PT AGREEABLE. ICE CHIPS PROVIDED. VS AND I&O COMPLETE. ICE PACK PROVIDED FOR ABD.
--- NOTE | 2022-04-08 08:00 | NUR ---
No change in plan for dc. Pt cont. to plan for dc to home when cleared medically.
--- NOTE | 2022-04-08 09:45 | NUR ---
Pt discussed in IDT and I requested further information as pt tells me he is receiving feedings through feeding tube. Rn clarified, pt is talking about his TPN and has clear liquids ordered. When closer to dc with assist pt for ostomy supplies through mail order.
--- NOTE | 2022-04-08 10:15 | NUR ---
MORNING ASSESSMENT COMPLETE. TPN INFUSING PER ORDER. IJ BRISK BLOOD RETURN, FLUSHED. MIDLINE INCISION OLD DRAINAGE NOTED. YELLOW BROWN FLUID NOTED TO G TUBE, FLUSHED. 50 ML OF BROWN LIQUID STOOL EMPTIED FROM OSTOMY. ONEIL DRAINING QS CONCENTRATED URINE. PT C/O PAIN, WILL BRING PRN MEDICATION WHEN DUE. PT AGREEABLE. DENIES FURTHER NEEDS AT THIS TIME. CALL LIGHT IN REACH.
--- NOTE | 2022-04-08 11:00 | NUR ---
PT ALERT, ORIENTED AND SITTING IN CHAIR. PT SEEMED PLEASED TO SEE ME. HAD GOOD VISIT-PT SAID HE NOT SURE WHY HE IS STILL HERE. GAVE ENCOURAGEMENT, HAD PRAYER WITH PT, ASSISTED WITH TV. LEFT G.POST. WILL CONTINUE TO FOLLOW
--- NOTE | 2022-04-08 11:32 | NUR ---
PT C/O NAUSEA, PRN MEDICATION GIVEN, SEE MAR. PT STOOD WITH FWW AND BACK TO CHAIR REPOSITIONED. ALLEVYN TO BOTTOM CDI. OSTOMY DRAINGING BROWN LIQUID STOOL. PT DENIES FURTHER NEEDS AT THIS TIME. CALL LIGHT IN REACH.
--- NOTE | 2022-04-08 13:45 | NUR ---
PT OSTOMY EMPTIED 550, LEAK AROUND EDGES. APPLIANCE CHANGED. PT C/O 04/01 PAIN, GIVEN PRN MEDICATION, SEE MAR. PARTIAL LINEN CHANGE. ONEIL REMOVED, BRIEF PLACED AND URINAL AT BEDSIDE. PT DENIES FURTHER NEEDS AT THIS TIME. CALL LIGHT IN REACH.
--- NOTE | 2022-04-08 14:55 | NUR ---
PT RESTING QUIETLY IN BED WITH EYES CLOSED, RESPIRATIONS EVEN AND UNLABORED. PT AWAKENS EASILY. DENIES NEEDS AT THIS TIME. CALL LIGHT IN REACH. SPOUSE AT BEDSIDE.
--- NOTE | 2022-04-08 16:01 | NUR ---
PT RESTING QUIETLY IN BED, RESPIRATIONS EVEN AND UNLABORED. SPOUSE AT BEDSIDE. CALL LIGHT IN REACH.
--- NOTE | 2022-04-08 17:52 | NUR ---
PT UP FROM BED TO CHAIR FOR DINNER. TOLERATED WELL. CALL LIGHT IN REACH. DENIES FURTHER NEEDS AT THIS TIME.
--- NOTE | 2022-04-08 18:52 | NUR ---
PT UP FROM CHAIR AND TO BED, ENCOURAGED AMBULATION FROM ACROSS ROOM TO BED. PT TOLERATE WELL. EXPLAINED THE IMPORTANCE OF AMBULATION. PT INDEPENDENTLY USED IS AT BEDSIDE X6. SCDS IN PLACE. CALL LIGHT IN REACH. RATES PAIN 7/10, STATES IMPROVEMENT DENIES NEED FOR INTERVENTION AT THIS TIME.
--- NOTE | 2022-04-08 19:15 | NUR ---
REPORT RECEIVED FROM CARINA. PT IS DOZING OFF AND ON. CALLL LIGHT IN REACH.
--- NOTE | 2022-04-08 19:40 | NUR ---
IN TO ASSIST PT WITH EMPTING OSTOMY BAG, PT USES THE URINAL, NO FURTHER NEEDS AT THIS TIME
--- NOTE | 2022-04-08 22:15 | NUR ---
PT. CALLED NURSES STATION REQUESTING RT. RT WAS NOTIFIED. CALL LIGHT LEFT WITHIN REACH. NO OTHER IMMEDIATE NEEDS AT THIS TIME.
--- NOTE | 2022-04-08 22:32 | NUR ---
PT APPEARS TO BE ASLEEP.
--- NOTE | 2022-04-09 00:29 | NUR ---
pt appears to be sleeping quietly durng bed check.
--- NOTE | 2022-04-09 01:58 | NUR ---
EMPTIED PT'S COLOSTOMY OF HADLEY LIQUID STOOL. PT USED URINAL AND VOIDED 100 MLS DARK YELLOW URINE. PT C/O OF PAIN IN HIS ABD HE RATED 9/10. STATED THAT THE PAIN PILLS WORKED WELL FOR A SHORT WHILE. HIS ABD IS DISTENDED AND TENDER. PT TOLERATES CARES WELL. USES HIS CALL LIGHT APPROPRIATELY.
--- NOTE | 2022-04-09 05:54 | NUR ---
PT. VITALS AND I/OS CAHRTED. PT. OSTOMY AND URINAL EMPTIED AND CLEANED ACCORDINGLY. ROOM TIDIED AND TRASH CANS EMPTIED. FRESH ICE WATER PROVIDED. CALL LIGHT LEFT WITHIN REACH. NO OTHER IMMEDIATE NEEDS AT THIS TIME.
--- NOTE | 2022-04-09 05:57 | NUR ---
PT'S LABS DRAWN FROM BROWN IJ PORT. 6 MLS BLOOD WASTED. PORT FLUSHED WELL AFTER DRAW, CLAVE REPLACED.
--- NOTE | 2022-04-09 10:30 | NUR ---
TO PT ROOM REQUESTING NAUSEA MEDICATION. PT IS ALERT, RESPIRATIONS EVEN AND REGULAR. CALL LIGHT WITHIN REACH.
--- NOTE | 2022-04-09 14:30 | NUR ---
TIA AND I CHANGED PATIENT'S ATTEND ALSO TIA CHANGED HIS BED LINENS. WE DID TRANFER HIM TO HIS CHAIR AND PUT A TAPED ATTEND ON HIM.
--- NOTE | 2022-04-09 15:30 | NUR ---
AMBULATED PT OUT TO LAW PT ABLE TO WALKING INTO LAW THEN WANT TO GO BACK INTO ROOM. WALKED TO WHITE LINE THEN BACK TO BED. PT INDEPENDENT WHEN GETTING LEGS IN BED. 2 PERCOCETS GIVEN FOR PAIN. CALL LIGHT IN REACH.
--- NOTE | 2022-04-09 15:36 | NUR ---
TO PT ROOM TO CHECK ON PT. TPN ALMOST COMPLETED. EMPTIED ILEOSTOMY.
--- NOTE | 2022-04-09 17:12 | NUR ---
NEW BAG OF TPN STARTED. IJ FLUSHING WELL. PT A/O, RESPIRATIONS EVEN AND REGULAR. PT AMBULATED IN LAW TODAY. CALL LIGHT WITHIN REACH.
--- NOTE | 2022-04-09 17:35 | NUR ---
PT A/O, RESPIRATIONS EVEN AND REGULAR. PT IS EATING DINNER. TPN RUNNING. G TUBE FLUSHED WITH 50ML WATER. PT TOLERATED WELL. CALL LIGHT WITHIN REACH.
--- NOTE | 2022-04-09 19:23 | NUR ---
REPORT RECEIVED FROM SADAF MYLES. PT LAST HAD PERCOCET AT 1451. NOO NAUSEA AT THIS TIME. ASSISTED PT IN MOVING UP IN BED WITH HOB 20 TO 30 %. HE NOTES THAT HELPS WITH HIS REFLUX. CALL LIGHT IN REACH.
--- NOTE | 2022-04-09 21:05 | NUR ---
PT'S BG = 155, HE WAS GIVEN REGULAR INSULIN 4 UNITS SQ PER ORDER. HE REQUESTED PAIN MEDS AND RATED HIS PAIN 9/10. HE WAS GIVEN PERCOCET X2 PER ORDER FOR PAIN.
--- NOTE | 2022-04-09 23:33 | NUR ---
PT REQUESTED STAFF LOOK AT HIS OSTOMY BAG IT IS MAKING NOISES. OSTOMY BAG IS WNL. HE IS PASSING GAS. PT REASSURED .
--- NOTE | 2022-04-10 00:27 | NUR ---
PT IS SLEEPING QUIETLY. HE DID NOT WANT TO USE HIS CPAP TONIGHT.
--- NOTE | 2022-04-10 02:03 | NUR ---
PT CALLED TO HAVE OSTOMY AND URINAL EMPTIED. BOTH WERE EMPTIED. PT C/O PAIN IN ABD AND LEGS. HE SAID HIS LEGS WERE 9/10 PAIN FROM WALKING DURING THE DAY. HE WAS MEDICATED WITH MORPHINE 2 MG IV.
--- NOTE | 2022-04-10 03:49 | NUR ---
PT APPEARS TO BE SLEEPING.
--- NOTE | 2022-04-10 05:48 | NUR ---
PT'S OSTOMY WAS EMPTIED, URINAL EMPTIED, CHUX AND ATTENDS CHANGED WELL TOP SHEET AND GOWN. PT WAS ABLE TO ROLL SIDE TO SIDE DURING CARES. HE SAID HE FEELS GOOD THIS MORNING.
--- NOTE | 2022-04-10 06:41 | NUR ---
PT'S AM LABS WERE DRAWN FROM THE BROWN PORT ON HIS IJ. A 6ML BLOOD WASTE WAS DRAWN AND THEN THE NLAB TUBES WERE FILLED. THE PORT WAS FLUSHED WITH 20 MLS SALINE. PT STATES HE FEELS GOOD THIS AM. NO NAUSEA OR PAIN NEEDS AT THIS TIME.
--- NOTE | 2022-04-10 06:56 | NUR ---
PT CALLED TO REQUEST PAIN PILLS FOR ABD PAIN HE RATES 03/01/ PT'S GOAL TODAY IS TO AMBULATE X2 WITH PT/STAFF. HE ALSO USED HIS CPAP AND STATED HE FEELS BETTER THIS MORNING FOR IT.HE SLEPT BETTER.
--- NOTE | 2022-04-10 07:40 | NUR ---
SHIFT REPORT RECEIVED. PT USED CPAP LAST NIGHT. PT IS SITTING UP IN BED ALERT. TPN RUNNING. CALL LIGHT WITHIN REACH.
--- NOTE | 2022-04-10 10:35 | NUR ---
PT AMBULATED IN HALLWAY WITH WALKER. STATES PAIN HAS DECREASED WITH WALKING.
--- NOTE | 2022-04-10 10:40 | NUR ---
INTO SEE PATIENT, PATIENT GETTING UP TO WALK WITH SADAF MYLES. PATIENT DOING WELL.
--- NOTE | 2022-04-10 12:17 | NUR ---
PT C/O PAIN 06/01 2 TAB PERCOCET GIVEN. BOOSTED UP IN BED. SCD'S IN PLACE. TPN RUNNING. PT IS A/O, RESPIRATIONS EVEN AND REGULAR. CALL LIGHT WITHIN REACH.
--- NOTE | 2022-04-10 15:15 | NUR ---
TO PT ROOM FOR ASSESSMENT. PT IS A/O, RESPIRATIONS EVEN AND REGULAR. FAMILY AT BEDSIDE. CALL LIGHT WITHIN REACH.
--- NOTE | 2022-04-10 15:36 | NUR ---
VERBAL ORDER RECEIVED FROM DR PRO TO TAPER OFF TPN. TPN REDUCED TO HALF THE RATE (41.9ML/HR)PER POLICY. PHARMACY NOTIFIED.
--- NOTE | 2022-04-10 17:37 | NUR ---
IV FLUIDS RUNNING. TPN BAG COMPLETED AND DC'D, OK PER PHARMACY. IJ DRESSING LOOSE FROM SHOWER. DRESSING CHANGED. PT IS SITTING IN CHAIR FOR MEAL. PERCOCET 2 TABS GIVEN FOR PAIN 05/02.
--- NOTE | 2022-04-10 18:13 | NUR ---
G TUBE FLUSHED WITH 50Ml. PT TOLERATED WELL. ENCOURAGED TO EAT MEAL. IV FLUIDS RUNNING.
--- NOTE | 2022-04-10 19:32 | NUR ---
PT A/O, DIAPHORETIC. MANUAL BP 78/49. T 99.6. PT RATES PAIN 8/10 WHICH HAS BEEN HIS BASELINE. NO NEW ASSESSMENT FINDING. DR SORTO CONTACTED AND GAVE VO FOR ONE LITER LR FLUID BOLUS OVER ONE HOUR. DR PRO CONTACTED AND MESSAGE LEFT.
--- NOTE | 2022-04-10 20:30 | NUR ---
1 LITER FLUID BOLUS COMPLETE, WHITE LUMEN FLUSHED WITH SALINE PER POLICY AND SALINE LOCKED. PUMP ON STANDBY, PRIMARY RN TIMMY AWARE AND TO ASSESS LINE WITH EVENING ASSESSMENT. MAINTENANCE FLUIDS CONTINUE TO INFUSE DIRECTED.
--- NOTE | 2022-04-10 20:55 | NUR ---
DR SORTO CALLED THIS RN STATION AND ASKED FOR pt UPDATE. BOLUS WAS COMPLETED AT APPROX 2030, VS AT THAT TIME WERE: HR 101, TEMP 98.0, RR 19, BP ON LEFT ARM 83/52 (60)-CUFF FELT TIGHT AND RESULT ON LEFT ARM AFTER BETTER FITTING CUFF IN PLACE WAS THEN 73/42 (47), BP ON RIGHT ARM WAS 86/52 (61). DR SOROT MADE AWARE OF ALL INFORMATION ABOVE. WHEN ASKED ABOUT HEPARIN FOR TRIPLE IJ, DR SORTO DEFERRED TO DR PRO pt HAS HX OF THRMBOCYOPENIA. PRIMARY RN TIMMY UPDATED ON ALL INFORMATION ABOVE AND IS NOW ALSO ON THE PHONE WITH DR SORTO AND DISCUSSING POC FOR REMAINING SHIFT. PRIMARY RN KEVIN TO ALSO CALL AND UPDATE DR PRO ON pt.
--- NOTE | 2022-04-10 21:05 | NUR ---
DR SORTO AND DR PRO BOTH NOTIFIED OF PT LOW BP AND LOW URINE OUTPUT. PT DID RECEIVE A 1000 ML LRR BOLUS AND WAS GIVEN AN ENSURE 160 MATTHEW HIGH PROTEIN DRINK. PT DID DRINK THE ENSURE. HE WAS TAKEN OFF PPN AND STARTED ON A 60 GRAM CONTROLLED CARB DIET TODAY. APPETITE HAS BEEN POOR. PT'S BP , INTAKE AND OUTPUT WILL BE MONITORED.
--- NOTE | 2022-04-10 21:05 | NUR ---
ADDITION TO EXISTING NOTE AT THIS TIME: BOTH DR SORTO AND DR PRO AGREE THAT IF PT'S SBP CONTINUES TO DROP OR MAP GOES BELOW 60 TO NOTIFY BOTH MDS FOR ADDITIONAL ORDERS / INSTRUCTIONS.
--- NOTE | 2022-04-10 21:57 | NUR ---
IN TO ASSIST PT WITH PLACING THE URINAL, GAVE PT A FEW MINUTES
--- NOTE | 2022-04-10 22:15 | NUR ---
PT STILL TRYING WITH THE URNAL, TRIED 2PA STAND AT BEDSIDE
--- NOTE | 2022-04-10 22:25 | NUR ---
PT LAID BACK IN BED, BOOSTED, THIS CHEF PASSENGER VESSEL WITH URINAL IN PLACE FOR PT, PT IS FALLING ASLEEP, ASKING PT IF DONE, PT STATED HE IS NOT, BUT WANTS TI KEEP TRYING, C/O FULLNESS, PT WANTS TO KEEP TRYING BUT CONTINES TO NOD OFF
--- NOTE | 2022-04-10 22:43 | NUR ---
BLADDER SCAN DONE PER PRIMARY RN'S REQUEST. PT HAS TRIED MULTIPLE TIMES TO VOID AND HAS BEEN UNABLE. BLADDER SCAN SHOWS 33ML. PT'S ABDOMEN FEELS TIGHT AND PT REPORTS PAIN WITH PALPATION. LOTS OF FLATUS FROM OSTOMY PRESENT. PRIMARY RN, TIMMY, UPDATED.
--- NOTE | 2022-04-10 22:54 | NUR ---
PT STATES HE HAS THE URGE TO VOID BUT CANNOT. HE WAS BLADDER SCANNED FOR 33 MLS. HE WAS ASSISTED BY STAFF TO STAND AT THE BEDSIDE WITH NO RESULTS. PT'S OSTOMY IS ACTIVELY PASSING GAS AND LIQUID STOOL. DR MACARIO SOTOMAYOR NOTIFIED.
--- NOTE | 2022-04-10 23:02 | NUR ---
DR SORTO NOTIFIED OF PT'S INABILITY TO VOID, AND PELVIC DISCOMFORT. ORDER TO STRAIGHT CATH X1 TAKEN WITH READBACK.
--- NOTE | 2022-04-10 23:30 | NUR ---
PT IS STRAIGHT CATHED USING STERILE TECHNIQUE. RETURNED 300 MLS VERY DARK YELLOW CLEAR URINE. PT TOLERTAED THE PROCEDURE WELL.
--- NOTE | 2022-04-11 02:32 | NUR ---
PT IS SLEEPING. HE HAS NOT URINATED SINCE THE STRAIGHT CATH. OSTOMY WAS BURPED AND EMPTIED. PT DID NOT AWAKEN.
--- NOTE | 2022-04-11 04:55 | NUR ---
PT TRYING TO VOID WITH URINAL, UNABLE, WITH RN BOOSTED, VS TAKEN, NEW ATTENDS AND DRAW SHEET IN PLACE, PT REMAINS WITH URINAL TRYING TO VOID, RN IN TO ASSESS PAIN, BED ALARM IN PLACE
--- NOTE | 2022-04-11 04:59 | NUR ---
PT IS IN PAIN HE RATES 10/10 AND DESCRIBES THE PAIN LOW ABD/PELVIC. HE IS DIAPHORETIC AND HIS RESPERATIONS HAVE INCREASED TO 22. PT IS UNABLE TO VOID. HIS LUNGS ARE CLEAR, BOWEL TONES ARE ACTIVE. HIS OSTOMY HAS DECREASED IN OUTPUT BUT HAS A LARGE AMOUNT OF GAS. MD WILL BE CALLED REGARDING PT CONDITION.
--- NOTE | 2022-04-11 04:59 | NUR ---
ADDITIONAL NOTE TO MD NOTIFICATION. THIS RN REQUESTED AN ABD CT OF DR SORTO TO HELP DETERMINE ANY INTERNAL CAUSE OF PT'S CONDITION. DR SORTO SAID HE WOULD SEE THE PT IN THE AM.
--- NOTE | 2022-04-11 05:06 | NUR ---
DR SORTO CALLED . ORDER FOR A ONEIL CATHETER GIVEN. STATED HE WOULD SEE PT IN THE AM.
--- NOTE | 2022-04-11 06:23 | NUR ---
PT HAS BEEN UNABLE TO VOID SINCE HIS STRAIGHT CATH LAST NIGHT. PT HAS C/O 10/10 PAIN IN HIS LOWER ABD AND PELVIS. HE WAS GIVEN [address] SORTO WAS NOTIFIED AND ORDERED A ONEIL CATHETER. A 16 FR WAS ATTEMPTED BY THIS RN AND AN OBSTRUCTION WAS MET. A SECOND ATTEMPT WITH A UROJET FOR LUBRICATION AND COMFORT ALONG WITH A 14 FR COUDE CATHETER WAS PLACED EASILY WITH 200 MLS BROWN URINE RETURNED. PT TOLERATED THE PROCEDURE WELL. HE STATES HIS BLADDER FEELS MUCH BETTER.
--- NOTE | 2022-04-11 06:28 | NUR ---
PT'S AM LABS WERE DRAWN FROM HIS 10 ML BROWN IJ LUMEN. 6 MLS BLOOD WERE WASTED. LAB NOTIFIED STAFF THAT PT'S POTASSIUM WAS > 7 AND REQUESTED A REDRAW. A GREEN TUBE WAS REDRAWN WITH A 6 ML BLOOD WASTE. THE GREEN TUBE WAS SENT TO LAB. AWAITING RESULTS.
--- NOTE | 2022-04-11 06:51 | NUR ---
DR SORTO CALLED THIS RN STATION, TELEPHONE ORDERS READ BACK FOR STAT BMP TO CONFIRM POTASSIUM LEVELS. LAB AWARE AND IN ROOM FOR DRAW. PRIMARY RN TIMMY UPDATED.
--- NOTE | 2022-04-11 06:58 | NUR ---
DR SORTO CALLED THIS RN STATION AND WANTS TO BE CALLED BACK WITH POTASSIUM RESULTS FROM STAT BMP. ADDITIONAL ORDERS ACKNOWLEDGED AND LAB IN ROOM DRAWING ADDITIONAL LABS- SEE ORDERS PLACED BY .
--- NOTE | 2022-04-11 07:26 | NUR ---
LAB UNABLE TO COLLECT SECOND SET OF BLOOD CULTURES VIA PERIPHERAL, PER DR MACARIO TAMAYO TO OBTAIN SECOND SET FROM CENTRAL LINE. DISCUSSED WITH MASON FROM LAB, PER MASON NO NEED TO EDIT OR PLACE NEW BLOOD CULTURE ORDER.
--- NOTE | 2022-04-11 07:40 | NUR ---
THIS RN ARRIVED AT 0700 AND RECEIVED SHIFT REPORT FROM SHAR WARNER. LAB IN THE ROOM DRAWING BLOOD CULTURES AND RADIOLOGY TAKING X-RAY. ROLY ZAVALA RN NURSE IN PLACING A TELE UNIT ON PATIENT AND HERAT RATE IS 110, RESPIRATIONS 28-30, MINIMAL ONEIL OUTPUT, BOWEL TONES NOT HEARD, PATIENT IS NAUSEATED AND GIVEN 4MG IV ZOFRAN AT 0732. MIGUEL NURSING AUTOMATIC GRINDER OPERATOR IN THE ROOM WELL AND HAS TALKED WITH AND PATIENT IS MOVING TO CCU RM#[id number]. REPORT GIVEN TO SHAR GUZMAN. LAB UNABLE TO DRAW SECOND SET OF PERIPHERAL LAB CULTURES AND IS OK WITH GETTING A SET FROM THE [facility] IF CCU STAFF UNABLE TO DRAW SECOND SET OF LAB CULTURES AND SHAR GUZMAN IS AWARE OF THIS. PATIENT HAS REMAINED HYPOTENSIVE 89/28 WITH MAP OF 44. TEMP 97.9F ON TRANSFER. LAB JUST CALLED AND K+=7.2 AND LAB IS CALLING CCU STAFF WELL. PATIENT'S TRANSFER TO CCU COMPLETE.
--- NOTE | 2022-04-11 07:47 | NUR ---
THIS RN SPOKE TO DR PRO REGARDING HEPARIN PROTOCOL ON CENTRAL LINE, PER DR PRO READ BACK- OKAY TO START HEPARIN LOCK PROTOCOL ON CENTRAL LINE.
--- NOTE | 2022-04-11 07:53 | NUR ---
RT IN ROOM PERFORMING EKG AT THIS TIME. PT BROUGHT OVER FROM MED/SURG 112 TO 127 FOR HYPERKALEMIA. PT IS NAUSEOUS AND COMPAZINE GIVEN 5 MG IV. PT RATING PAIN 9/10, WHICH IS WORSE FOR HIM THAN IT HAS BEEN OVER LAST COUPLE OF DAYS. PEAKED T WAVES NOTED ON EKG. POTASSIUM LEVEL CAME BACK FOR A 3RD LAB EVAL AT 7.2. DR. SORTO CALLED AND ORDERS REC'D. NS BOLUS STARTED OVER 1 HR AND OTHER ORDERS PENDING AT THIS TIME. ONEIL CATH HAS CONCENTRAED URINE IN LOW AMOUNTS. 2ND PERIPHERAL BLOOD CULTURE BEING ATTEMPTED BY LUCAS MYLES. CLOSE MONITORING OF THIS PATIENT AT THIS TIME.
--- NOTE | 2022-04-11 08:00 | NUR ---
2ND SET OF BLOOD CULTURES DRAWN FROM PERIPERHAL SITE LEFT INNER WRIST AND PLACED IN PEDI TUBE.
--- NOTE | 2022-04-11 08:42 | NUR ---
2ND LITER OF NS ALMOST INFUSED AT THIS TIME. PT HAS RECEIVED IV INSULIN 10 UNITS, D50 1 AMP, CALCIUM CHLORIDE 1000 MG, AND IS NOW RECEIVING IV SODIUM BICARBONATE INFUSION AT 250 ML/HR. DR. SORTO IN TO SEE PATIENT. WAITING TO GIVE LASIX 80 MG UNTIL BLOOD PRESSURS ARE HIGHER. MANUAL BP AT 66 SBP. PT ALSO STARTED ON NEOSYNEPHRINE AT 50 MCG/MIN. LAST BP 74/41 (52). PT'S DAUGHTER AND WERE CALLED BY [employer].
--- NOTE | 2022-04-11 09:31 | NUR ---
DR. PRO IN TO SEE PATIENT. DISCUSSIGN PLAN OF CARE. PT'S DAUGHTER THOMAS NOW IN ROOM. UPDATE PROVIDED. PT MORE INTERACTIVE AND CONVERSIVE, BUT STILL FALLS ASLEEP FAIRLY QUICKLY. URINE OUTPUT PICKING UP AND IS LIGHT YELLOW IN COLOR. WILL CONTINUE TO MONITOR.
--- NOTE | 2022-04-11 10:37 | NUR ---
PATIENT'S SON AND DAUGHTER REMAIN IN ROOM. DR. PRO TO COME AND CHANGE OUT CENTRAL LINE. SUBCLAVIAN TO BE ATTEMPTED PER DR. PRO AND RIGHT IJ TO BE TAKEN OUT, WITH TIP TO BE SENT FOR CULTURE. PT REMAINS ON NEOSYNEPHRINE AT 100 MCG/MIN AT THIS TIME. LAST BP 98/56 (70). PT'S COLOR APPEARS IMPROVED FROM EARLIER THIS AM. HR IN THE 80-90s.
--- NOTE | 2022-04-11 14:42 | NUR ---
PATIENT'S FIRST DOSE OF ORAL CONTRAST GIVEN AT 1430 AND WITH 300 ML OF WATER. PT TOLERATED THIS WELL. PT WAS ALSO GIVEN PERCOCET AT THIS TIME FOR 8/10 PAIN ( SEE EMAR). NEXT DOSE OF GASTROGRAFIN TO BE GIVEN AT 1530, AND CT SCAN OF ABDOMEN PELVIS TO HAPPEN AT 1630. PT REMAINS ON NEOSYNEPHRINE AT 65 MCG/MIN AT THIS TIME. WILL CONTINUE TO TITRATE DOWN TO MAINTAIN MAPS >60. PT TRYING TO SLEEP WITH HIS OWN CPAP MACHINE ON. SP02 IS CURRENTLY 100% ON THIS. WILL CONTINUE TO MONITOR.
--- NOTE | 2022-04-11 15:45 | NUR ---
PATIENT RESTING AT THIS TIME WITH CPAP ON. PT WAS ABLE TO DRINK 2ND DOSE OF GASROGRAFIN OKAY WITHOUT PROBLEM. CT SCAN TO OCCUR AT 1630. PT REMAINS IN SINUS RHYTHM WITH FREQ PVCs NOW, SOMETIMES TRIGEMINAL PVCs. NEXT LABS DUE AT 1800. LABS WILL CONTINUE TO BE Q6. PT REMAINS ON ROOM AIR. CONTINUE TO MONITOR CLOSELY.
--- NOTE | 2022-04-11 18:10 | NUR ---
PATIENT TAKEN DOWN FOR CT ABD/PELVIS AT 1640. PT TOLERATED WELL. ONCE BACK IN ROOM, LINEN CHANGED UNDER PATIENT AND BED BATH PROVIDED. PT ALSO ABLE TO BRUSH HIS TEETH. G TUBE RECONNECTED TO ONEIL DRAINAGE BAG AFTER CT WELL. PT REMAINS NPO EXCEPT FOR PILLS BEING GIVEN. PT IS NOT HUNGRY. ACTIVE BOWEL SOUNDS REMAIN. FLUID THAT IS DRAINING OUT OF G TUBE AN ALSO OUT OF ILEOSTOMY WHILE THE G TUBE WAS CLAMPED IS DARK MAROON, VERY FOUL SMELLING, AND WHEN MIXED WITH WATER IN TOILET, TURNS FAIRLY BRIGHT RED. DR. SORTO AND DR. PRO AWARE OF THESE FINDINGS DISCUSSED EARLIER IN THE DAY. DR. PRO CALLS CCU AT THIS TIME AND ASKS FOR UPDATE ON PATIENT WHICH WAS GIVEN TO HIM. NOTIFIED DR. PRO THAT THE LOWER SUTURE ON CENTRAL LINE CAME OFF WHEN CHANGING PATIENT'S CENTRAL LINE DRESSING THIS AFTERNOON. DR. PRO STATES THIS IS OKAY FOR NOW, BUT TO KEEP A CLOSE EYE ON IT AND MAKE SURE THE TAPE REMAINS ADHERED WELL. WILL MONITOR CLOSELY. PHENYLEPHRINE REMAINS AT 30 MCG/MIN AT THIS TIME WIHT THE LAST BP READING 88/55 (66). GOAL IS TO KEEP MAP >60. WILL CONTINUE TO TITRATE DOWN TOLERATED.
--- NOTE | 2022-04-11 20:00 | NUR ---
PATIENT HEAD TO TOE ASSESSMENT COMPLETED. PATIENT SKIN IS PALE AND DIPHORETIC. ORAL TEMP 97.7. PAIN 6/10 TO LOWER ABD. REPORTS NAUSEA; PRN ZOFRAN GIVEN. EDUCATED ON PAIN MEDICATION SCHEDULE. PATIENT REPORTS PAIN IS TOLERABLE. BP'S TITRATED TO MAINTAIN MAP > [address] SORTO'S ORDERS. PUPILS ARE 2MM AND FIXED. MUCOUSE MEMBRAINS PINK AND MOIST. CAP REFILL < 3 SECONDS. CENTRAL LINE TO LEFT SUBCLAVIANE HAS ONE SUTURE IN PLACE AND DRESSING IS CLEAN, DRY, AND INTACT. ABD IS FIRM, TENDER, AND DISTENDED WITH GREATER DISTENSION ON THE RIGHT THAN LEFT. G TUBE DRAINING TO GRIVITY BAG. DARK RED/BROWN DRAINING NOTED. ABD INCISION IS CLEAN AND OPEN TO AIR. CHOLOSTOMY STOMA IS PALE AND WHITE IN COLOR DRAINING DARK RED ENTIRLY LIQUID STOOL. ONEIL CATH IN PLACE AND DRAINING YELLOW URINE TO BEDSIDE BAG. BLE FREE FROM EDEMA. SCD'S IN PLACE. PEDAL PULSES 2+ WITH DOPPLER AND RADIAL PULSES WEAK. PATIENT ON ROOM AIR MAINTANING SATS > 92%. PATIENT IN BED AND APPEARS COMFORTABLE AT THIS TIME. DR PRO AT BEDSIDE TO DISCUSS CT ABD RESULTS AND THE NEED FOR EMERGENT SURGERY TO DRAIN ABDOMINAL ABCCESSES. PATIENT, SHAUN, AND DAUGHER DAYNA ALL UPDATED ON POC BY DR PRO AND AGREE WITH POC FOR SURGERY.
--- NOTE | 2022-04-11 20:55 | NUR ---
REPORT GIVEN AND CARE TRANSFERED TO MICHAEL WITH [facility].
--- NOTE | 2022-04-11 21:00 | NUR ---
OR TEAM AT BEDSIDE AND PATIENT TAKEN OFF THE UNIT TO THE OPERATING ROOM.
--- NOTE | 2022-04-11 23:43 | NUR ---
PATIENT ARRIVED TO UNIT ON HOSPITAL BED WITH MICHAEL SIMS, SEMAJ RN, GREGORY RN. PATIENT INTUBATED AND SEDATED. PATIENT ARRIVED WITH LEFT RADIAL ART LINE. PATIENT ON PHYNELEPHRINE AT 100MCG/KG/MIN AND EPINEPHRINE 10MG/MIN WITH LR RUNNING WIDE OPEN. PATIENT WAS TRANSFERED TO ROOM MONITOR. ART LINE AND END TITAL CO2 CONNECT. RT KAMARA AT BEDSIDE TO CONNECT PATIENT TO VENTILATOR. MICHAEL SIMS AND DR SORTO AT BEDSIDE. MULTIPLE TITRATIONS MADE TO PHENLYEPHRINE AND EPINEPHRINE UNDER DR OQUENDO DIRECTION TO MAINTAIN MAPS >55. EPINEPHRINE TITRATED OFF AT 0200 WITH PHEYNELEPHRINE INCREASED TITRATIONS. MULTIPLE STAFF AT BEDSIDE TO ASSIST IN MED ADMINISTRATION WELL STABLIZING THE PATIENT; SHAUN RN, MATIAS RN, ANGEL RN. PATIENT WAS COOL TO THE TOUCH, RECTAL TEMP 97.1. DR SORTO ORDERED WARM BLANKET BE APPLIED AND ONEIL TEMP REPLACEMENT ORDERS GIVE TO INCLUDE A TEMP SENSING ONEIL CATH. LABS DRAWN TO INCLUDE ABG. MULTIPLE MEDICATIONS GIVEN SEE EMAR. PATIENTS PUPILS 3MM WITH BRISK REACTION. ET TUBE 7.0 21 AT THE TEETH. NG IN PLACE AND HOOKED UP TO LIS WITH DARK BROWN RETURN NOTED. DR PRO USED THE PREVIOUS INCISION SITE; MIDLINE ABD. ALTICOAT DRESSING IN PLACE WITH MINIMAL BLOOD STRIKE THROUGH ON DRESSING. 3 MIGUELITO SITES NUMBERED 1-3 ON DRAIN. #1 ON RIGHT ABS, #2 AND #3 TO RIGHT ABD. ALL MIGUELITO DRAINS DRAINING SEROSANGUINEOUS FLUID. G-TUBE TO LEFT ABD REMAINS IN PLACE WITH DARK BROWN/RED DRAINAGE. (BAG REPLACED BY OR) BOWEL TONES ABSENT IN ALL QUADS. SCD'S TO BLE. CAP REFILL > 3 SECS TO BLE. 2 UNTIS PRBCS TRANSFUSED AND A 600ML NS BOLUS ADMINISTERED. 20MLS OF YELLOW URINE NOT TO BEDSIDE ONEIL BAG. NEW ORDERS RECIEVED FROM DR SORTO TO KEEP MAP > 65 TO INCREASE HOURLY URINE OUTPUT. PATIENT TACHYCARDIC AND TACHYPNEIC NO GAG REFLUX OR COUGH REFLUX NOTED. DR PRO UPDATED THE FAMILY WITH THE DETAILS OF THE SURGERY. DR SORTO LEFT BEDSIDE AT 0245. ALL DRIP TITRATIONS THEREAFTER CHARTED IN FLOWSHEET.
--- NOTE | 2022-04-11 23:43 | NUR ---
PT TO CCU AND REPORT FROM HEAD BOYS TENNIS COACH TO CCU RN.
--- NOTE | 2022-04-11 23:43 | NUR ---
PT ARRIVED FROM SURGERY TO ROOM 127 ON INTUBATED R.TMigue REYNOLDS IN ROOM VENT IS SET UP AT BEDSIDE AND READY FOR PT, MICHAEL RESTREPO TAB MACHINE OPERATOR IS WITH SURGERY TEAM CONTINUE TO REGULATE PRESSORS AND MAINTAIN ART LINE WHILE PT TRANSITIONED TO ROOM MONITOR AND PUMPS, WAS NOTED TO BE AT BEDSIDE AT 0000, HE BEGAN ASSESSMENT BLOOD DRAWN FOR LABS AND SENT AT THIS TIME, ABG DRAWN BY RODOLFO Duckworth FROM ART LINE. , JENNIFER Mott RN AND SEMAJ RESTREPO AND IN ROOM WHEN PT ARRIVED. REMAINED AND GAVE ORDERS FROM BEDSIDE INCLUDING, CHANGE ONEIL TO TEMP PROB FOR CORE TEMP MONITORING AFTER PT HAD RECTAL TEMP OF 97.1, ORDERED TO HAVE HEAT THERAPY APPLIED, FELIPA WARMING BLANKET APPLIED, PT ALSO HAD BOLUS OF FLUIDS, INSILIN AND D50 AMP, NA BICARB 50MEQ PUSH, CA INFUSION, 2 UNITS OF BLOOD ORDERED TO BE INFUSED, AND ALBUMIN, ORDERS TO TITRATE AND CHANGE PRESSORS WELL TO PRIMARY RN MARCO HATCH. MATIAS ZAVALA RN AND LUMBER INSPECTOR MARGARITA MYLES IN ROOM DURING THIS TIME. VENT MAINTAINED BY RODOLFO Duckworth WITH TO OVER SEE WHILE AT BEDSIDE. PT HAS NO SEDATION MEDICATIONS ON BOARD, PT CONTINUES TO BE OBTUNDED/UNRESPONSIVE.
--- NOTE | 2022-04-12 03:08 | NUR ---
PER RT ANH, PATIENT RESPIRATORY RATE CHANGED TO 32 ON VENT SETTINGS
--- NOTE | 2022-04-12 03:13 | NUR ---
BLADDER SCAN PERFORMED ON PATIENT. MULTIPLE TIMES, READS 0 ML.
--- NOTE | 2022-04-12 05:00 | NUR ---
PATIENT HAS SPONTANIOUS EYE OPENING. ABLE TO OPEN EYE AND SQUEEZE HANDS ON COMMAND. PATIENT TOLERATING THE VENT WELL. PRN VERSED GIVEN PER DR SORTO FOR SEDATION ON VENT. STOMA TO RIGHT ABD APPEARS RED IN COLOR. BAG DRAINING RED IN COLOR, THIN, AND LIQUID. ONEIL DRAINING DARK JASMYN URINE. MIGUELITO DRAINS DRAINED. PATIENT APPEARS COMFORTABLE AFTER VERSED PUSH AND TOLERATING VENT.
--- NOTE | 2022-04-12 05:31 | NUR ---
ORAL CARE AND NOÉ CARE PRODIVDED. HEAD OF BED AT 30 DEGREES.
--- NOTE | 2022-04-12 05:51 | NUR ---
PATIENT TEMP 100.2. HEATING BLANKET WAS TURNED OFF AT 0330. COOL WASHCLOTH TO FOREHEAD, FAN, AND ROOM TEMP DECREASED.
--- NOTE | 2022-04-12 06:51 | NUR ---
PATIENT ARROUSING. ABLE TO FOLLOW COMMNADS. VERSED GIVEN FOR SEDATION. SOFT RESTRAINTS APPLIED TO BUE FOR SAFTEY WITH ETT.
--- NOTE | 2022-04-12 06:58 | NUR ---
DR JEFFREY NOTIFIED OF TEMP OF 100.6 WITH ICE PACKS TO ARMPITS AND BACK OF NECK AND A COOL RAG AND FAN TO FOREHEAD. NOTIFIED OF AM LABS AND BG AND INSULIN ORDERS NOT CORRILATING. ORDERS TO CHANGE INSULIN TO Q 3 HOURS WITH BG CHECKS. MD AWARE OF VERSED PUSHES AND TITRATION OF PHENYEPHRINE.
--- NOTE | 2022-04-12 07:42 | NUR ---
CARE RESUMED OF PATIENT. DISCUSSED WITH DR. SORTO ON PHONE PLAN OF CARE AND GOALS FOR TREATMENT AT THIS TIME WITH VENT SETTING CHANGES AND VASOPRESSOR CHANGES. RT IN ROOM AND TITRATING DOWN RR TO 25, THEN WILL TITRATE DOWN TO 20. PHENYLEPHRINE INFUSING AT 100 MCG/MIN INITIALLY, BUT TITRATED DOWN TO 75 MCG/MIN AT 0735. PT'S IN ROOM AND UPDATE PROVIDED. OTHER VENT SETTINGS INCLUDE VT 480, PEEP 5, AND FI02 30%. PT NOT ON PROPOFOL, NOR ON ANY NOREPI. PT HAS BEEN GIVEN 2 DOSES OF VERSED FOR SEDATION. GOAL WILL BE TO ATTEMPT EXTUBATION THIS AM. CBG Q3 HRS. MONITORING URINE HOURLY.
--- NOTE | 2022-04-12 08:47 | NUR ---
DR. SORTO IN ROOM EVALUATING PATIENT. VT TURNED DOWN TO 420 ML FROM 480. NEXT ABG TO BE SENT AT 0930 AND WILL BE COLLECTED FROM ART LINE. PT BACK UP TO 75 MCG/MIN OF PHENYLEPHRINE. 500 ML BOLUS OF NS BEING GIVEN OVER 1/[address] SORTO. LR TO BE STARTED AFTERWARDS FOR MAINTENACE FLUIDS. WILL CONTINUE TO MONITOR.
--- NOTE | 2022-04-12 09:25 | NUR ---
ABG DRAWN FROM ART LINE AND SENT TO LAB. PT IS MORE AWAKE, BUT NOT FOLLOWING DIRECT COMMANDS AT THIS TIME. PT IS NOTED TO BE BITING ON HIS ETT SOME, REMINDED PATIENT NOT TO BITE DOWN TUBE. PT GIVEN WY TYLENOL FOR CORE TEMP OF 100.9. NS BOLUS OF 500 ML HAS FINISHED AND NOW IVF ARE INFUSING AT 100 ML/HR, LR. WILL CONTINUE TO MONITOR CLOSELY.
--- NOTE | 2022-04-12 12:31 | NUR ---
LABS SENT AFTER COLLECTING BLOOD FROM CENTRAL LINE, WHITE PORT. [address] PRO IN TO SEE PATIENT. PLAN OF CARE DISCUSSED AND ATTEMPTS TO KEEP VASOPRESSORS AT A MINIMUM DISCUSSED. URINE OUTPUT AGAIN AT 1200 WAS 0 ML. BLADDER SCANNED FOR CONFIRMATION THAT NO URINE NOTED IN BLADDER. WILL CONTINUE TO MONITOR.
--- NOTE | 2022-04-12 12:54 | NUR ---
URINE OUTPUT HAS REMAINED 0 FOR THE LAST [address] PER ORDER FROM DR. PRO, 500 ML BOLUS OF LR BEING GIVEN NOW.
--- NOTE | 2022-04-12 13:18 | NUR ---
1305- PT APPEARS TO BE IN PAIN, MEDICATED WITH 25 MG OF KETAMINE. 1310- REPOSITIONED TO RIGHT SIDE. 1320- MIGUELITO TO RIGHT SIDE OF ABD EMPTIED FOR 80 ML
--- NOTE | 2022-04-12 15:00 | NUR ---
PATIENT TURNED TO LEFT SIDE AND POSITIONED WITH PILLOWS. PT REMAINS ON PHENYLEPHRINE - SEE FLOWSHEET FOR TITRATIONS. PT'S LEFT AROUND 1400 TO GO HOME FOR THE DAY. PT CONTINUES TO RECEIVE IV PUSHES OF FENTANYL, VERSED, AND KETAMINE FOR PAIN AND SEDATION. URINE OUTPUT AT 1500 WAS 140 ML, 165 ML THE HOUR BEFORE THAT. SOME BLEEDING NOTED FROM MEATUS, AND THIS WAS CLEANED WITH WARM WASH CLOTH. ALL DRAINS TO BE EMPTIED AT 1600.
--- NOTE | 2022-04-12 16:21 | EKG ---
[facility] [address] [place] [address] Signed Normal sinus rhythm Low voltage QRS Borderline ECG When compared with ECG of 02-APR-2022 17:33, Nonspecific T wave abnormality no longer evident in Inferior leads Nonspecific T wave abnormality no longer evident in Anterolateral leads Confirmed by MANASA SORTO MD ([id number]) on 04/12/2022 4:21:26 PM Electronically Signed By: MANASA SORTO MD 04/12/22 1621 PATIENT NAME: DAVID POTTS TERESO Electrocardiogram DATE OF : 57 PHYSICIAN: MANASA SORTO MD REPORT #: [id number] REPORT IS CONFIDENTIAL AND NOT TO BE RELEASED WITHOUT AUTHORIZATION
--- NOTE | 2022-04-12 20:00 | NUR ---
PATIENT HEAD TO TOE ASSESSMENT COMPLETED. PATIENTS COLOR IS PINK, SKIN IS WARM. PATIENT RESTLESS IN BED. RESPONDS TO VERBAL STIMULI AND IS ABLE TO FOLLOW COMMANDS. PATIENT GIVEN PRN VERSED TO HELP WITH AGITATION. ART LINE TO LEFT RADIAL ARTERY ZEROED AND HAS AN EVEN PEAKED WAVE. LEFT SUBCLAVIAN CENTRAL LINE DRESSING COMING LOOSE; NEW DRESSING APPLIED USING STERILE TECHNIQUE WITH CHG. ONE SUTURE REMAINS HOLDING CVC IN PLACE. MIDLINE ABD DRESSING HAS MINIMAL STRIKE THROUGH. ACTICOAT DRESSING CHANGED. ALEXIA IN PLACE AND INSICION IS PINK WITH SURROUNDING SKIN INTACT. MIGUELITO SITE X3 TO ABD DRESSING CHANGED. ILEOSTOMY STOMA IS RED AND BAG HAS DARK GREEN LIQUID STOOL. ONEIL CATH IN PLACE WITH BLOOD IN URETHRA. NOÉ CARE COMPLETED. SCD'S TO BLE. RESTRAINTS IN PLACE AND BUE WARM, PINK, WITH CAP REFILL < 3 SECS. PATIENT REPOSITIONED AND ORAL CARE COMPLETED. G TUBE DRAINING SLUDGY GREEN DISCHARGE AND WAS CLAMPED AFTER MEDS GIVEN. PATIENT TACHY IN THE LOW 100'S. OCCASIONALLY OVERBREATHING THE VENT. ONEIL CATH DRAINING YELLOW URINE AND OUTPUT ADEQUATE.
--- NOTE | 2022-04-12 21:15 | NUR ---
DR PRO CALLED TO GET AN UPDATE ON PATIENT. UPDATED THAT PATIENT ON 75/MCG/MIN OF PHYNELEPHRINE TO MAINTAN MAPS > 55. DR PRO ORDERED THE GTT BE TURNED DOWN TO 30MCG/MIN AND THAT IS THE ABSOLUTE MAX DOSE FOR PATINET. INFORMED DR THAT PATIENT WAS RESTLESS, AGITATED, AND OVER BREATHING THE VENT. NEW ORDERS TO DC KETAMINE, AND FENTYNL AND ORDER MORPHINE FOR SEDATION ALONG WITH THE CURRENT VERSED ORDERS. PATIENS PHELEPHRINE GTT TURNED FROM 75MCG/MIN TO 30MCG/MIN PER MD REQUEST. MORPHINE GIVEN TO PATIENT.
--- NOTE | 2022-04-12 22:27 | NUR ---
SPOKE WITH DR PRO ON THE PHONE. HE REQUESTED AN UPDATE ON THE PATIENTS CONDITION AND GGTS. REQUESTED PHENYLEPHRINE 30MCG/MIN BE TURNED OFF. UPDATED ON MORPHINE HELPING PATIENT NOT OVERBREATH THE VENT. PATIENT STILL ABLE TO OPEN EYES AND SQUEEZE HANDS ON COMMAND. REPOSONDS TO VERBAL STIMULI. PHENYLEPHRINE SHUT OFF PRE MD REQUEST. MAPS > 55.
--- NOTE | 2022-04-12 23:25 | NUR ---
BODY FLUID CULTURE RESULTS CALLED TO DR PRO. NO NEW ORDERS. UPDATED ON PATIENT STATUS; COMFORTABLE WITH MORPHINE AND VERSED PUSHES.
--- NOTE | 2022-04-12 23:54 | NUR ---
PATIENT IN BED. APPEARS MORE COMFORTABLE. RESTLESS WITH STIMULATION. ABG AND LABS DRAWN.
--- NOTE | 2022-04-13 01:42 | NUR ---
PATIENT VISIBLT RESTLESS. RESPONDING TO VERBAL STIMULI. ABLE TO FOOLOW COMMANDS. VERSED GIVEN FOR COMFORT. PATIENT REPOSITIONED AND ORAL CARE COMPLETED. VS REMAIN STABLE WITH A MAP >55 OF PHENYLEPHRINE.
--- NOTE | 2022-04-13 04:07 | NUR ---
PT EYES OPEN, LOOKING AROND, BITING AT BREATHING TUBE - RESTLESS. MS 2 MG GIVEN AFTER CONSULT WITH SHAUN MYLES. PT PROVIDED WARM BLANKET AND REPOSITIONED - RELAXED WITH INTERVENTION.
--- NOTE | 2022-04-13 04:43 | NUR ---
PATIENT REOPSITIONED AND ORAL CARE COMPLETED. ALL DRAINS EMPTIED. DRESSINGS TO ALL SITES REMAIN INTACT.
--- NOTE | 2022-04-13 06:35 | NUR ---
PATIENT REPOSITIONED IN BED. ORAL CARE COMPLETED. PATIENT RESPONDS TO VERBAL STIMULI. MEPILEX DRESSING TO COCCYXCLEAN DRY AND INTACT. DRAW SHEET AND TOP SHEET CHANGED. RIGHT MIGUELITO GAUZE CHANGED. ALL OTHER DRESSINGS CLEAN DRY AND INTACT. PATIENT REMAINS RESTRAINED FOR SAFETY.
--- NOTE | 2022-04-13 07:54 | NUR ---
CARE OF PATIENT RESUMED AND PLAN OF CARE CONTINUES. PT IS AWAKE, FOLLOWS SIMPLE COMMANDS, AND NOT ON ANYTHIGN CURRENTLY FOR SEDATION. PT HAS BEEN GETTING PRN PUSHES OF VERSED FOR SEDATION, WELL MORPHINE FOR PAIN. VENT SETTINGS ARE CURRENTLY VC/AC 16, VT 450, PEEP 5, AND FI02 25%. PT WILL BE ATTEMPTED TO EXTUBATE THIS AM. WILL WORK WITH RT. PT HAD GRABBED AT ILEOSTOMY BAG AND REMOVED FROM APPLIANCE. THIS WAS CLEANED AND REPLACED. PT STILL PULLING AT MIGUELITO DRAINS AT TIMES. BLANKET POSTIONED OVER LINES TO HELP PREVENT PT FROM INADVERTANTLY PULLING LINES. IV MAG TO BE GIVEN.
--- NOTE | 2022-04-13 08:20 | NUR ---
Pt remains on vent. Updated from RN, pt will be extubated this morning.
--- NOTE | 2022-04-13 08:28 | NUR ---
DR. PRO IN TO SEE PATIENT AND PLAN OF CARE DISCUSSED. IVF DOWN TO 85 ML/HR. PLAN TO EXTUBATE TOLERATED TODAY. RT NOW IN ROOM WORKING WITH PATIENT ON CPAP TRIAL.
--- NOTE | 2022-04-13 08:54 | NUR ---
DR. SOTO IN ROOM AND ASSESSING PATIENT. NO FURTHER ORDERS REC'D AT THIS TIME. PT CONTINUES ON WEAN TRIAL AND DOING WELL. CURRENT RR IS 25. SP02 IS 99-100%. PT STILL PULLING AT LINES OCCASIONALLY. WHEN ASKING PATIENT IF HE IS PAINFUL, HE POINTS TO HIS ONEIL CATH. WHEN ASKING IF HIS ABDOMEN HURTS, HE SHAKES HIS HEAD NO. WILL CONTINUE TO MONITOR CLOSELY.
--- NOTE | 2022-04-13 09:11 | NUR ---
PATIENT EXTUBATED AT 0904 WITHOUT ANY DIFFICULTY. PT HAS BEEN STATING THAT HIS ONEIL CATH IS HURTING THAT THAT HE NEEDS TO VOID. ONEIL MANIPULATED TO DRAIN URINE BETTER AND PT MADE 550 ML FROM 0630 UNTIL 0900. PT STATES NOW THAT HE HAS PAIN "PRETTY MUCH EVERYWHERE." WILL MEDICATE PER EMAR. PT ON ROOM AIR NOW AND SP02 IS 100%.
--- NOTE | 2022-04-13 09:58 | NUR ---
PATIENT RESTING IN BED, THIS PETROLEUM REFINING EQUIPMENT OPERATOR AND RN CLAUDIA PROVIDED BEDBATH. LINEN CHANGED. PATIENT PAINFUL BUT TOLERATED WELL. ONEIL CARE PROVIDED.
--- NOTE | 2022-04-13 10:45 | NUR ---
PATIENT CONTINUES TO REST IN BED AT THIS TIME WITH HOME CPAP ON. PT ON ROOM AIR ON CPAP. HR IN THE 90s WITH FREQ PVCs STILL. NON INVASIVE BP 124/69 (84) AND ART LINE 72/52 (57). RE-ZEROED AT PHLEBOSTATIC AXIS WITH SIMILAR RESULTS. URINE OUTPUT REMAINS ADEQUATE. WILL CONTINUE TO MONITOR.
--- NOTE | 2022-04-13 13:30 | NUR ---
CALLED DR. PRO TO GIVE A GENERAL UPDATE ON HOW PATIENT HAS BEEN DOING TODAY SINCE EXTUBATION. DISCUSSED WITH MD THE CENTRAL LINE AND THE RESULTS OF THE CHEST XRAY DONE THIS AM THAT STATED THAT THE TIP OF LEFT SUBCLAVIAN CENTRAL LINE IS NOW IN THE SUPERIOR SVC, AND THAT THE LOWER STITCH THAT WAS PLACED UPON INSERTION IS NO LONGER PRESENT. THIS WAS DISCUSSED YESTERDAY WELL, AND REQUESTED THAT A SECURE DRESSING REMAIN IN PLACE AT ALL TIMES. DRESSING WAS CHANGED THIS AM AND IS SECURE. ALSO DISCUSSED WITH MD THE ART LINE AND ITS FURTHER USE. WILL CONTINUE TO USE ART LINE LONG POSSIBLE WHILE IT IS STILL FUNCTIONAL. SWELLING NOTED TO LEFT ARM, BUT GENERALIZED SWELLING IS NOTED THROUGHOUT BODY AT THIS TIME, PT APPEARS TO BE 3RD SPACING FLUID EASILY.
--- NOTE | 2022-04-13 14:15 | NUR ---
UNABLE TO VISIT PT-MANUFACTURING ENGINEERING DIRECTOR IN WORKING WIT PT. WILL FOLLOW
--- NOTE | 2022-04-13 14:50 | NUR ---
PATIENT REPOSITIONED TO RIGHT SIDE WIHT PILLOWS. PT'S REMAINS IN ROOM AND IS JUST WANTING PATIENT TO REST. NON INVASIVE BP AT 1430 WAS 100/58 (71) AND ART LINE WAS 86/62 (69). PT CONTINUES TO WEAR HOME CPAP. HR IN THE 90s.
--- NOTE | 2022-04-13 16:36 | NUR ---
DR. PRO BACK IN TO SEE PATIENT. DISCUSSED POTENTIALLY STARTING PT ON TPN, BUT NO ORDER REC'D OF YET. ASSESSMENT COMPLETE. PT DOES HAVE SOME ACTIVE BOWEL SOUNDS ON LEFT SIDE OF ABDOMEN, BUT STILL RARE TO ABSENT ON RIGHT SIDE. ILEOSTOMY EMPTIED FOR 75 ML OF DARK GREEN LIQUID/GELANTINOUS FLUID THAT IS ODORLESS. URINE OUTPUT FOR 4 HRS AT 1600 WAS 560 ML OF CLEAR YELLOW URINE. BLEEDING AROUND MEATUS IS IMPROVED, AND HAS HARDLY BEEN NOTICEABLE TODAY. GAUZE INTACT AROUND EACH MIGUELITO DRAIN AND A LOT LESS DRAINING FROM THESE TODAY. PT SAT UP IN BED AND GIVEN A MOUTH SWAB. PT DOES STATE, "I AM THIRSTY." DISCUSSED WIHT PATIENT THAT HE IS STILL NPO AT THIS TIME. PT ALSO ASKING, "WHAT DAY IS IT?" REORIENTED TO RECENT EVENTS AND 2ND ABDOMINAL SURGERY. WILL CONTINUE TO MONITOR.
--- NOTE | 2022-04-13 17:25 | NUR ---
PATIENT'S SON SERA HERE BRIEFLY BUT HAS SINCE LEFT. UPDATE PROVIDED. QUESTIONS ANSWERED BEST POSSIBLE. PT REMAINS SITTING UPRIGHT IN BED AND DOZING ON AND OFF. SP02 IS 99-100% ON ROOM AIR. URINE OUTPUT REMAINS ADEQUATE, LIGHT YELLOW IN COLOR. WILL CONTINUE TO MONITOR.
--- NOTE | 2022-04-13 18:46 | NUR ---
1800 LABS DRAWN FROM WHITE PORT ON CENTRAL LINE AFTER 7 ML WASTE. LABS NOW PENDING. PT TOLERATED WELL. PT REMAINS DROWSY, CURRENTLY DOZING OFF WHILE WEARING HOME CPAP ON ROOM AIR. SP02 IS 100%. PT HAS ONLY RECEIVED IV MORPHINE X1 TODAY. SCDs ON. IVF CONTINUE AT 85 ML/HR. ART LINE REMAINS INTACT ON LEFT WRIST. PT REMAINS IN SINUS RHYTHM 90s WITH FREQ PVCs AT TIMES. CONTINUE TO MONITOR.
--- NOTE | 2022-04-13 19:15 | NUR ---
REPORT FROM THOMAS RN - PT AWAKE AND RESTING ON HOME CPAP, ONEIL DRAINING, IV FUSING AND VITALS/ ARTLINE ALL WNL ON MONITOR. PT HAS CALL LIGHT IN REACH - RN WILL CONTINUE TO FOLLOW.
--- NOTE | 2022-04-13 19:57 | NUR ---
MARCO RN TALKING WITH PT - HE IS REQUESTING THE TIME LINE OF EVENTS OF CURRENT ILLNESS. ASSESMENT DONE WITH MARCO RN, AND RENUKA RT IN TO CHECK CPAP WITH THIS RN. PT TALKATIVE, ART LINE ZERO'D WNL AND ALL 3 MIGUELITO DRAINS AND COLOSTOMY WNL DRAINING. PT REPOSITIONED TO LEFT SIDE, TOLL WELL, EYES OPEN AND AWAKE, ORIENTED TO MOST EXCEPT THE YEAR. EDEMA GENERALIZED, ORAL CARE DONE- MOISTENED MOUTH - GOOD SWALLOW.
--- NOTE | 2022-04-13 20:32 | NUR ---
PT DECLINES PAIN MED OFFER AT MEDICATION ADMINISTRATION TIME, RN DID REPOSITION AND SCRATCH BACK FOR COMFORT - STRAITING LINENS.
--- NOTE | 2022-04-13 20:35 | NUR ---
GT CLAMPED AFTER GIVEN PO MEDICATION CRUSHED AND FLUSHED. WILL RECONNECT IN 30 MIN.
--- NOTE | 2022-04-13 21:30 | NUR ---
gtube reconnected, pt denies needs, call light in reach.
--- NOTE | 2022-04-13 23:12 | NUR ---
pt resting, eyes closed on home cpap, resp rate regular. dunn draining wnl, gtube to gravity. no apparent distress.
--- NOTE | 2022-04-14 00:35 | NUR ---
pt called and asked for ice chips, oral care done and ice chip given with hob up. pt put his glasses on and is watching tv - call light in reach - denies needs, i/o and vitals documented with assessment. no changes.
--- NOTE | 2022-04-14 02:00 | NUR ---
BS CHECK 120, PT EYES CLOSED -RESP EVEN, CPAP ON, ONEIL DRAINING, CALL LIGHT IN REACH - NO CHANGES.
--- NOTE | 2022-04-14 04:35 | NUR ---
PT AWAKENED FOR ASSESSMENT AND I/O, DRAIN CARE AND REPOSITIONING TO RIGHT SIDE. REPORTS 8/10 ABD PAIN AND GEN DISCOMFORT - 2 MG MS IV GIVEN. ZERO ART LINE COMPLETE - MARCO RN IN ROOM TO ASSIST. PT CALL LIGHT IN REACH.
--- NOTE | 2022-04-14 06:49 | NUR ---
ONEIL CATH CARE COMPLETE - SKIN WNL, MEDS GIVEN IN G TUBE CRUSHED AND TUBE CLAMPED. MIGUELITO DRESSINGS CHANGED X2 WITH SLIGHT SEROUS DRAINAGE NOTED. ONEIL AND G TUBE DRAINAGE WNL. PT RESTING DENIES NEEDS, WINDOW SHADE DRAWN - PT CONT. TO WEAR HOME CPAP WHILE SLEEPING. IV ABX FUSING IN LEFT CENTRAL LINE.
--- NOTE | 2022-04-14 08:14 | NUR ---
PATIENT WOKE TO VOICE THIS MORNING, VITALS AND I&OS CHARTED. 3PA TO ASSSIST PATIENT IN SITTING AT SIDE OF BED, FEET ON FLOOR. PATIENT WAS PAINFUL BUT TOLERATED VERY WELL. PATIENT THEN AGREED TO STAND AND PIVOT TO RECLINER, STAFF ASSISTING. MOUTH SWAB PROVIDED FOR ORAL CARE. LEGS ELEVATED. LINENS CHANGED. CALL LIGHT IN EASY REACH.
--- NOTE | 2022-04-14 08:45 | NUR ---
IN PATIENT'S ROOM FOR ASSESSMENT AND HYDROELECTRIC OPERATOR. PT STATES HE IS FEELING OKAY. PT WEARING HIS CPAP THIS AM AND SP02 IS 100%. PT AGREEABLE TO GET UP TO CHAIR THIS AM. MIGUELITO DRAIN #1 EMPTIED AND ONEIL EMPTIED PER JAVA SDET. PT REMAINS IN SINUS WITH FREQ PVCs, HR 80-90s. PT STILL HAS ART LINE, AND AT TIMES THE READINGS COORELATE WITHIN ABOUT 10-15 POINTS FROM SYSTOLIC TO SYSTOLIC, BUT OTHER TIMES THE DISCREPANCY IS MUCH MORE. 2 PERSON ASSIST UP TO CHAIR AND LINENS WERE CHANGED. PT STATES HE IS VERY WEAK, WHICH HE DOES SEEM TO BE, AND HAS DIFFICULTY STANDING STABLE ON HIS FEET. PT NOW IN CHAIR AND REQUESTING PAIN MEDICATION. WILL CONTINUE TO MONITOR. PT ALSO REQUESTING ICE CHIPS OR SOMETHING FOR HIS MOUTH. SWAB GIVEN FOR MOUTH. WILL ADDRESS ANY FURTHER PO INTAKE WITH DR. PRO THIS AM.
--- NOTE | 2022-04-14 09:19 | NUR ---
Reviewed pt's chart, note from . pt will need SNF on dc. Chart faxed to [facility] as would prefer pt to stay in town. Face sheet, H&P, Surgery notes, progress notes, covid test, covid vaccine record, med list, and PT note.
--- NOTE | 2022-04-14 11:04 | NUR ---
DR. PRO IN TO SEE PATIENT AROUND 1000, AND ORDERS REC'D FOR D/C ART LINE, GIVE X1 DOSE LASIX, AND MAY ADVANCE PATIENT TO CLEAR LIQUIDS. PT WAS STILL UP IN CHAIR BUT REQUESTING TO CHANGE POSITIONS AND WANTING TO ULTIMATELY GET BACK INTO BED. ART LINE WAS D/C W/O COMPLICATION, TIP INTACT, WITH NO SIGNS OF INFECTION AT SITE. PT'S LEFT ARM STILL REMAINS MORE SWOLLEN THAN THE RIGHT ARM, BUT WILL CONTINUE TO KEEP ELEVATED. PT GIVEN WATER TO START AND TOLERATING THIS WELL. 3 PERSON ASSIST BACK TO BED. PT ABLE TO STAND X2 PERSON ASSIST, BUT LEGS ARE VERY WEAK, RIGHT MORE WEAK THAN THE LEFT. 2 ATTEMPTS TO STAND, AND THEN WE HELPED PATIENT PIVOT TO BED WHICH WAS VERY CLOSE. PATIENT WAS TURNING TO SIT, HE DID START TO LOOSE STRENGTH AND WAS FURTHER ASSISTED TO THE BED SAFELY. PT THEN ABLE TO SCOOT SELF WITH HELP UP HIGHER IN BED AND ULTIMATELY INTO RESTING POSITION. PT STATES, "I'M SO WEAK THIS TIME, WEAKER THAN LAST TIME." DISCUSSED WITH PATIENT THAT HE HAS BEEN THROUGH A LOT, BUT HIS PROGRESS OF ALREADY GETTING UP INTO CHAIR TODAY WILL HELP HIM, AND THAT WE MUST CONTINUE TO WORK ON MOBILIZING TOLERATED. PT THEN ASKING FOR DILUTED DOWN SANTIAGO CLEAR ENSURE. BP AT 1100 NON INVASIVE IS 107/62 (74). HR IN THE 80-90s, PVCs STILL NOTED. WILL GIVE DOSE OF LASIX. SCDs REMAIN ON WHILE IN BED FOR DVT PREVENTION.
--- NOTE | 2022-04-14 11:39 | NUR ---
DR. SOTO IN ROOM TO SEE PATIENT. NO FURTHER ORDERS AT THIS TIME. PT TO BE TYPED AND CROSSED FOR 2 UNITS OF BLOOD AND PENDING ORDER TO TRANSFUSE FROM DR. PRO. 20 MG IV LASIX GIVEN PER ORDER. PT ALSO GIVEN MORPHINE PER EMAR FOR 8/10 PAIN.
--- NOTE | 2022-04-14 13:45 | NUR ---
PT WAS ASLEEP IN BED, AWOKE TO THE SOUND OF MY VOICE. PT STRUGGLED TO STAY AWAKE-CALLED ME BY NAME. HAD PRAYER AND WILL FOLLOW NEEDED
--- NOTE | 2022-04-14 15:17 | NUR ---
2PA IN FOR BEDBATH AND LINEN CHANGE. PATIENT TOLERATED BATH WELL. LARGE WET (CLEAR LIQUID) SPOT NOTED UNDER PATIENT PATIENT ROLLED FOR CARE, RN AT BEDSIDE. CHUX UNDER PATIENT, OSTOMY EMPTIED AND CHARTED. IN ROOM. FRESH WATER PROVIDED. SCDS IN PLACE, CALL LIGHT IN EASY REACH.
--- NOTE | 2022-04-14 15:44 | NUR ---
PATIENT WAS GIVEN BED BATH AND TOLERATED WELL. PT'S SHAUN REMAINS IN ROOM. PT HAS BEEN ABLE TO TOLERATE CLEAR LIQUIDS, AND DRANK A CLEAR ENSURE, WATER, AND SOME JUICE. PT NOW REPORTING SOME NAUSEA AND ABDOMINAL PAIN - MEDICATED PER PRN MEDS (SEE EMAR). ACTIVE BOWEL SOUNDS NOW HEARD THROUGHOUT ABDOMEN. ENCOUARGED PATIENT TO LET FLUIDS SETTLE AND NOT TAKE ANY FURTHER IN PO AT THIS TIME UNTIL PAIN AND NAUSEA ARE BETTER. PT AGREEABLE. ONEIL DRAINING CLEAR YELLOW URINE, AND STILL SOMETIMES DOESN'T DRAIN WELL, CAUSES PATIENT TO REPORT A FULL BLADDER FEELING, AND THEN WILL DRAIN ONCE TUBING IS MANIPULATED SLIGHTLY. SCDs ON. PT STILL HAVING HICCUPS ON AND OFF, WHICH HE HAS HAD SINCE YESTERDAY. WILL CONTINUE TO MONITOR CLOSELY. CALL LIGHT WITHIN REACH. LAST BP 114/73 (84), RR 19.
--- NOTE | 2022-04-14 17:08 | NUR ---
DR. PRO CALLED AND WAS GIVEN A GENERAL UPDATE ON PT'S CONDITION AND EVENTS OF THE DAY. DISCUSSED CULTURE RESULTS WHICH ARE IN THE PHYSICAL PAPER CHART. DISCUSSED POTENTIALLY TRANSFUSING PATIENT WITH BLOOD TODAY BUT DECISION WAS MADE TO WAIT AND SEE WHAT CBC SHOWS IN THE AM, MAKE A DECISION BASED ON THAT. NO SIGNS OF BLEEDING ANYWHERE AT THIS TIME - SMALL AMOUNT OF BLEEDING AROUND CATHETER MEATUS YESTERDAY HAS STOPPED. AM LABS ARE ORDERED. PT RESTING STILL IN BED WITH HOME CPAP ON, ROOM AIR. IVF CONTINUE AT 85 ML/HR. PT'S HAS GONE HOME FOR THE DAY BUT STATES SHE WILL RETURN TOMORROW.
--- NOTE | 2022-04-14 20:00 | NUR ---
PATIENT ASSESSMENT COMPLETED. PATIENT REPORTS PAIN TO ABD 8/10 AND MILD NAUSEA. PAIN MEDS AND ANITMETICS GIVEN. PATIENT IN BED RESTING WITH CPAP ON. ABLE TO SWALLOW PO PILLS. ILEOSTOMY STOMA PINK IN COLOR AND RAINING GREEN/DARK BROWN LIQUID. MIGUELITO SITES DRAINING TO BULB DRAINS WITH DRESSINGS INTACT. MIDLINE ABD DRESSING INTACT. ONEIL IN PLACE AND DRAINING TO BEDSIDE BAG. SCD'S IN PLACE. 1+ EDEMA TO BLUE TO THIGHS, BUTTUCKS AND ABD, BUE EDEMA . PATIENT REPOSITIONED IN BED FOR COMFORT AND ALL BELONGINGS IN REACH.
--- NOTE | 2022-04-14 22:31 | NUR ---
PATIENT IN BED WITH EYES CLOSED. CPAP ON. RESPIRATIONS EVEN AND UNLABORED. CALL LIGHT IN REACH.
--- NOTE | 2022-04-14 22:44 | NUR ---
PATIENT USED CALL LIGHT REQUESTING PAIN MEDS FOR ABD PAIN AND REPORTS FEELING NAUSEOUS. PRN MEDS GIVEN. RT AT BEDSIDE AND FLUID ADDED TO CPAP MACHINE.
--- NOTE | 2022-04-15 00:31 | NUR ---
PATIENT REQUESTING PAIN AND NAUSEA MEDS. PRN MEDS GIVEN. PATIENT TURNED IN BED. CALL LIGHT IN REACH AND CAN MAKE NEEDS KNOWN.
--- NOTE | 2022-04-15 02:05 | NUR ---
PATIENT USED CALL LIGHT. PATIENT REPOSITIONED IN BED. PATIENT DENIES ANY FURTHER NEEDS CALL LIGHT IN REACH.
--- NOTE | 2022-04-15 03:48 | NUR ---
PATIENT RESTING IN BED WITH EYE CLOSED. CPAP ON. RESPIRATIONS EVEN AND UNLABORED. CALL LIGHT AND BELONGINGS IN REACH. CAN MAKE NEEDS KNOWN.
--- NOTE | 2022-04-15 04:14 | NUR ---
PATIENT TURNED TO SIDE. MIGUELITO DRESSINGS X 3 CHANGED AND DRAINS EMPTIED. CHUCKS UNDER PATIENT CHANGED. WATER REFILLED. ILEOSTOMY AND ONEIL DRAINED. PATIENT RESTING IN BED COMFORTABLY. CALL LIGHT IN REACH.
--- NOTE | 2022-04-15 06:13 | NUR ---
PATIENT REPORTED PAIN AND NAUSEA. PRN MEDS GIVEN. HE HAS INTERMITTENT HICCUPS. MEPILEX DRESSING TO COCCYX REMAINS INTACT. ABLE TO KEEP DOWN PO AND TAKE ORAL MEDS. NO EMISIS.
--- NOTE | 2022-04-15 08:00 | NUR ---
REPORT RECEIVED FROM NIGHT RN. RN IN ROOM TO ASSESS PT - PT AWAKE RESTING IN BED, [id number]. PT REQUESTS PAIN MEDICATION FOR 10/10 LOWER ABD PAIN. 2MG PRN MORPHINE ADMINISTERED. PT TOLERATING CLEAR LIQS WITHOUT NAUSEA. MD IN ROOM TO ROUND ON PT - DIET ADVANCED. PT/OT EVAL ORDERED. DRESSINGS C/D/I, STOMA PINK AND WHITE SPECKELED WITH GREEN STOOL OUTPUT.
--- NOTE | 2022-04-15 09:30 | NUR ---
Pt discussed in AM meeting with , no plan for dc today.
--- NOTE | 2022-04-15 10:09 | NUR ---
PT IN ROOM WORKING WITH PT
--- NOTE | 2022-04-15 10:13 | NUR ---
PT RESTING IN BED, IN RM ON PHONE. PT SEEMED PLEASED WITH MY VISIT. DIFFICULT FOR PT TO SPEAK, BUT SPEAKS CLEARLY, WITH GOOD RESPONSES. PT BEGAN TO TELL ME WHAT HE IS THANKFUL FOR-DIET ADVANCED. ENCOURAGEMENT GIVEN TO PT. HAD PRAYER, WILL FOLLOW
--- NOTE | 2022-04-15 12:20 | NUR ---
RN IN ROOM TO ASSIST PT BACK TO BED FROM CHAIR. 2 PERSON ASSIST USING FWW, R SIDE WEAKER THAN LEFT WHICH IS BASELINE. COMPLETE BEDBATH GIVEN, LINEN CHANGE. DRAIN DRESSINGS CHANGED, ONEIL CARE PROVIDED. ASSESSMENT COMPLETE, NO NEW CHANGED. OSTOMY SITE PRODUCING INCREASING AMOUNTS OF GREEN LIQUID STOOL. VOIDING QS. VS STABLE. PT NOW RESTING IN BED WITH CALL LIGHT IN REACH.
--- NOTE | 2022-04-15 13:32 | NUR ---
RN IN ROOM TO ADMINISTER SCHEDULED ABX. PT REQUESTS PAIN MEDICATION FOR 8/10 ABD PAIN - ADMINISTERED. DENIES NAUSEA. HICUPS STILL PRESENT.
--- NOTE | 2022-04-15 14:00 | NUR ---
PT RESTING IN BED WITH EYES CLOSED, RR EVEN AND UNLABORED. CALL LIGHT IN REACH.
--- NOTE | 2022-04-15 16:02 | NUR ---
PT UP TO CHAIR WITH 2 PERSON ASSIST AND FWW. ONEIL CATH LEAKING ON LINEN, PT C/O FEELING "FULL". CATH TUBING SANITIZED AND ADVANCED, BALLOON REINFLATED, 150ML IMMEDIATLY OUT. WILL CONTINUE TO MONITOR. NEW ALLYVYN PLACED ON COCCYX, NO BREAKDOWN NOTED.
--- NOTE | 2022-04-15 17:01 | NUR ---
PT BACK TO BED FROM CHAIR - NEW ARJO BED IN PLACE WITH SKIN IQ TOPPER IN PLACE. TOWEL PLACED UNDER SCROTUM FOR EDEMA. PT DENIES FURTHER NEEDS AT THIS TIME.
--- NOTE | 2022-04-15 18:07 | NUR ---
PT USES CALL LIGHT TO REQUEST NAUSEA MEDICATION. ZOFRAN ADMINISTERED. PT ON PHONE WITH SISTER. MIGUELITO DRAINS AND ONEIL EMPTIED.
--- NOTE | 2022-04-15 21:05 | NUR ---
PT ALERT AND ORIENTED X4 AT THIS TIME ON ROOM AIR. PT VITALS TAKEN AT THIS TIME (SEE CHART). PT REPORTS 7/10 ABDOMINAL PAIN AT THIS TIME AND REQUESTED PRN PAIN MEDICATION. PRN MORPHINE ADMINISTERED WITH SCHEDULED MEDICATIONS (SEE MAR). NO INSULIN GIVEN PER SLIDING SCALE, PRN COMPAZINE ADMINISTERED FOR NAUSEA WELL (SEE MAR). ASSESSMENT COMPLETED AT THIS TIME. PT AWAKE AND ALERT, HEART RYTHM REGULAR, LUNGS CLEAR IN UPPER LOBES, DIMINISHED AND CLEAR IN THE LOWER LOBES BILATERALLY. ABDOMEN SOFT/ROUND, MIGUELITO DRAINS ALL C/D/I AND DRAINING SEROSANGUINOUS FLUID. G-TUBE SITE C/D/I. OSTOMY BAG CONTAINS GREEN FLUID/SOFT STOOL, BOWEL TONES NOTED. OSTOMY SITE NOTED TO BE LEAKING. MIDLINE INCISION, NOTED TO BE SOILED FROM LEAKING OSTOMY SITE/DRESSING. WILL CHANGED MIDLINE INCISION DRESSING AND OSTOMY BAG/DRESSING. PULSES ON PT REMAIN STRONG, SCROTAL EDEMA AND EDEMA IN LOWER LEGS BILATERALLY NOTED +2. EXTREMITIES WARM. CENTRAL LINE C/D/I, NOW HAS IV ABX INFUSING INTO ONE LUMEN. ONEIL DRAINING AND WAS NOTED TO HAVE SOME BLOOD AROUND THE MEATUS, ONEIL CARE DONE AT THIS TIME, URINE CLEAR/YELLOW. PT REPORTS NO FURTHER NEEDS AT THIS TIME WHEN ASKED AND IS RESTING IN BED. WILL CONTINUE PLAN OF CARE. CALL LIGHT IN REACH, BED IN LOWEST POSITION.
--- NOTE | 2022-04-15 22:15 | NUR ---
PT REMAINS RESTING IN BED AWAKE AND ALERT, IV ABX INFUSING. MIDLIN INCISION DRESSING AND OSTOMY BAG CHANGED AT THIS TIME. MIDLINE INCISION NOW C/D/I, CHLOROHEXADINE USED TO CLEAN MIDLINE INCISION. NEW ACTICOAT DRESSINGS IN PLACE. NEW OSTOMY DRESSING/BAG ALSO PLACED. RN AUDRA IN TO ASSIST WITH DRESSING CHANGE AND ASSISTED IN REDRESSING MIGUELITO DRAIN SITES AND G-TUBE SITE WITH GAUZE. PRN PAIN MEDICATION ADMINISTERED FOR PAIN (SEE MAR). PT ALSO REPORTED NAUSEA AT THAT TIME, PRN PROMETHAZINE ADMINISTERED FOR NAUSEA (SEE MAR). PT NOW RESTING IN BED WITH HIS HOME CPAP ON. PT REPORTS NO FURTHER NEEDS, CALL LIGHT IN REACH, BED IN LOWEST POSITION, WILL CONTINUE PLAN OF CARE.
--- NOTE | 2022-04-15 23:30 | NUR ---
CALL LIGHT USED BY PT. PT AWAKE IN BED ALERT AND ORIENTED ON HIS HOME CPAP, IV ABX INFUSING. PT REQUESTED THIS RN, TO ASSESS HIS OSTOMY BAG. MIDLINE INCISION AND OSTOMY BAG C/D/I. OSTOMY DRAINING GREEN/BROWN SEMILIQUID/SOFT STOOL. PT REPORTS NO FURTHER NEEDS WHEN ASKED AND REMAINS RESTING IN BED, WILL CONTINUE PLAN OF CARE. CALL LIGHT IN REACH, BED IN LOWEST POSITION.
--- NOTE | 2022-04-16 00:25 | NUR ---
PT RESTING IN BED WITH HIS EYES CLOSED. PT'S HOME CPAP ON, IV ABX INFUSING. PT AWOKE EASILY AND WAS ALERT AND ORIENTED X4. VITALS TAKEN (SEE CHART). PT DENIES NEED FOR PAIN MEDICATION AT THIS TIME WHEN ASKED STATING HIS PAIN IS TOLERABLE. ASSESSMENT THEN COMPLETED (SEE CHART). G-TUBE FLUSHED WITH 50MLS WATER AT THIS TIME. PT REPORTS NO FURTHER NEEDS WHEN ASKED. IV ABX COMPLETED, PT SALINE LOCKED. CALL LIGHT IN REACH, BED IN LOWEST POSITION, WILL CONTINUE PLAN OF CARE.
--- NOTE | 2022-04-16 01:16 | NUR ---
CALL LIGHT USED. PT RESTING IN BED AWAKE WITH HIS HOME CPAP ON. PT REPORTED HAVING 8/10 ABDOMINAL PAIN AND REQUESTED PRN MORPHINE AND PRN NAUSEA MEDICATION FOR HIS NAUSEA. PRN MORPHINE AND PRN ZOFRAN ADMINISTERED ALONG WITH SCHEDULED MEDICATIONS (SEE MAR). INSULIN HELD PER SLIDING SCALE. PT THEN PROVIDED WITH WATER AND JUICE PER HIS REQUEST AND REPORTS NO FURTHER NEEDS. PT REMAINS RESTING IN BED, HOME CPAP ON, IV ABX NOW INFUSING, CALL LIGHT IN REACH, WILL CONTINUE PLAN OF CARE.
--- NOTE | 2022-04-16 02:35 | NUR ---
PT HEART MONITOR NOTED TO BE SINUS KEVAN WITH A HR 50'S. PT RESTING IN BED WITH EYES CLOSED, IV ABX INFUSING, CPAP OFF. PT AWOKE EASILY AT THIS TIME AND DENIED SOB OR CHEST PAIN, HR NOW IN THE 80'S AND MAINTANING. PT REPORTS RLQ PAIN 9/10 AND NAUSEA AT THIS TIME. PT REQUESTED PRN PAIN MEDICATION AND NAUSEA MEDICATION. PRN MORPHINE AND COMPAZINE ADMINISTERED (SEE MAR). PT REPORTS NO FURTHER NEEDS WHEN ASKED AT THIS TIME AND IS RESTING IN BED. ONEIL DRAINING, OSTOMY DRAINING. PT REPORTS NO FURTHER NEEDS AT THIS TIME WHEN ASKED. PT NOW RESTING IN BED WITH HIS HOME CPAP ON. CALL LIGHT IN REACH, WILL CONTINUE PLAN OF CARE.
--- NOTE | 2022-04-16 04:55 | NUR ---
PT CALL LIGHT USED, PT AWAKE AND ALERT IN BED, IV ABX INFUSING, PT HAS HIS HOME CPAP OFF. PT REPORTS 9/10 ABDOMINAL PAIN AND NAUSEA AND REQUESTED HIS PRN PAIN AND NAUSEA MEDICATION. PRN MORPHINE AND PROMETHAZINE ADMINISTERED (SEE MAR). VITALS THEN TAKEN AND PT ASSESSMENT COMPLETED. PT'S MIDLINE INCISION REMAINS C/D/I, OSTOMY BAG C/D/I, GREEN LIQUID AND SEMILIQUID SOFT STOOL PRESENT IN OSTOMY BAG. STOMA PINK/RED IN COLOR. ABDOMEN ACTIVE IN UPPER QUADRANTS AND HYPOACTIVE IN LOWER QUADRANTS. MIGUELITO DRAIN SITES C/D/I, MIGUELITO DRAINS CONTAIN SEROSANGUINOUS FLUID. G-TUBE CLAMPED, SITE C/D/I. NOEIL DRAINING CLEAR YELLOW URINE. ONEIL CARE DONE SOME DRY BLOOD WAS AGAIN NOTED AROUND THE MEATUS/INSERTION SITE OF THE ONEIL. CENTRAL LINE C/D/I. LUMENS FLUSHING EASILY. RADIAL PULSES STRONG, PEDAL PULSES +1, SCDS IN PLACE AND ON. PT REPORTS NO FURTHER NEEDS AFTER ASSESSMENT AND IS NOW RESTING IN BED. PT HOME CPAP REMAINS OFF HE STATES HE WANTS A BREAK FROM IT. WILL CONTINUE PLAN OF CARE. CALL LIGHT IN REACH, BED IN LOWEST POSITION.
--- NOTE | 2022-04-16 05:45 | NUR ---
PT'S IV ABX COMPLETED AT THIS TIME. IV FLUSHED, SCHEDULED LABS THEN DRAWN FROM CENTRAL LINE AND SENT TO LAB. CENTRAL LINE LUMEN THAN FLUSHED WITH 20ML OF NS. PT REPORTS NO FURTHER NEEDS AT THIS TIME AND REMAINS RESTING IN BED. CALL LIGHT IN REACH, BED IN LOWEST POSTITION, WILL CONTINUE PLAN OF CARE.
--- NOTE | 2022-04-16 06:55 | NUR ---
PT RESTING IN BED WITH HIS EYES CLOSED ON ROOM AIR. PT AWOKE EASILY AT THIS TIME. SCHEDULED MEDICATIONS ADMINISTERED, IV ABX NOW INFUSING (SEE MAR). PT DENIES THE NEED FOR PAIN OR NAUSEA MEDICATION AT THIS TIME. I'S AND O'S ACCOUNTED FOR. AT THIS TIME MIGUELITO 1 ON RIGHT SIDE EMPTIED OF 15ML, MIGUELITO 2 ON LEFT SIDE EMPTIED OF 1ML, MIGUELITO 3 EMPTIED OF 1ML SEROSANGUINOUS FLUID. ILEOSTOMY EMPTIED OF 125ML GREEN/BROWN SEMILIQUID SOFT STOOL. PT REPORTS NO FURTHER NEEDS WHEN ASKED AT THIS TIME AND REMAINS RESTING IN BED, IV ABX INFUSING. CALL LIGHT IN REACH, BED IN LOWEST POSITION, WILL CONTINUE PLAN OF CARE.
--- NOTE | 2022-04-16 07:30 | NUR ---
PATIENT REPORT RECIEVED FROM WEB DESIGNER DEVELOPER RN. PATIENT RESTING IN BED AT THIS TIME. PATIENT CALLS APPROPRIATELY. PATIENT HAS ONEIL CATHETER IN PLACE PER REPORT WITH SOME BLOOD AROUND THE MEATUS. OSTOMY DRAINING GREEN COLORED STOOL. PATIENT DENIES ANY NEEDS AT THIS TIME. WILL CONTINUE TO CLOSELY MONITOR.
--- NOTE | 2022-04-16 08:53 | NUR ---
PATIENT AWAKE IN BED, VITALS AND I&OS CHARTED. PATIENT REPOSITIONED IN BED FOR BREAKFAST/ GOAL OF TRANSFERRING TO RECLINER BEFORE LUNCH, PATIENT AGREES. FACE AND HANDS WASHED. CALL LIGHT IN EASY REACH, ROOM TIDIED.
--- NOTE | 2022-04-16 09:16 | NUR ---
PATIENT RESTING IN BED, WOKE TO VOICE. VITALS AND I&OS CHARTED. CALL LIGHT IN EASY REACH
--- NOTE | 2022-04-16 09:30 | NUR ---
THIS RN IN TO DO ASSESSMENT. PATIENTS BREATH SOUNDS CLEAR. BOWEL TONES ACTIVE. PATIENT HAS GREEN STOOL PRESENT IN OSTOMY. OSTOMY SITE IS PINK WITH PETECHIE NOTED. MIGUELITO DRAINS X3. G-TUBE PRESENT. ONEIL CATHETER PRESENT. PATIENTS IV SITE DRESSING APPEARS TO NEED CHANGED. WILL UPDATE NANOELECTRONICS ENGINEER AND WILL HCANGE THE DRESSING. REVIEWED PLAN OF CARE WITH PATIENT. WILL GIVE PRN PAIN MEDICATIONS 12-30 MINUTES PRIOR TO PATIENT GETTING UP AND WORKING WITH PHYSICAL THERAPY. PATIENT IS ABLE TO CALL ON HIS OWN. PATIENT RESTING IN BED. PATIENT DENIES ANY NEEDS AT THIS TIME. CALL LIGHT IN REACH. WILL CONTINUE TO CLOSELY MONITOR.
--- NOTE | 2022-04-16 11:00 | NUR ---
PATIENT WORKING WITH PHYSICAL THERAPY AND SYLVIA ALEJANDRA. PATIENT GETTING UP TO THE CHAIR.
--- NOTE | 2022-04-16 11:24 | NUR ---
2PA SBA FROM BED TO CHAIR, PATIENT STOOD AND AMBULATED WELL. P/T IN ROOM FOR THERAPY. LEGS ELEVATED. LINEN CHANGED. CALL LIGHT IN EASY REACH
--- NOTE | 2022-04-16 12:16 | NUR ---
PATIENT SITTING UP IN RECLINER FOR LUNCH. VITALS AND I&OS CHARTED, IN ROOM.
--- NOTE | 2022-04-16 12:28 | NUR ---
PT IS EATING LUNCH AND TOLERATING WELL. IS AT BEDSIDE. PT HR REMAINS IN 90'S WITH OCCASIONAL PVC'S. BREATH SOUNDS ARE DIMINISHED IN LOWER LOBES BILATERALLY, WITH NO CHEST PAIN OR DIFFICULTY BREATHING RECORDED. PT IS ALERT AND ORIENTED TO ALL BUT DATE. PT PAIN IS AT 8/10 IN LOWER ABDOMINAL REGION, MORPHINE GIVEN (SEE EMAR). PT HAS EDEMA BILATERALLY IN LOWER EXTREMETIES BUT PULSES ARE FELT IN ALL EXTREMETIES, FINGERS ARE COLD. CATHETER SITE IS SLIGHTLY BLOODY AND LEAKING. DRAINS SITES AND INCISION SITES ARE WNL WITH APPROPRIATE DRAINAGE. DR. PRO IN ROOM TO PROVIDE EDUCATION AND SPEAK WITH PT ABOUT CARE PLAN.
--- NOTE | 2022-04-16 12:30 | NUR ---
MD PRO WAS IN TO SEE PATIENT. REVIEWED PATIENTS ABD. PER MD MAY REMOVE MIDLINE DRESSING. MIGUELITO'S WILL PROBABLY BE PULLED TOMORROW. OSTOMY SITE PINK WITH DANIELLE AND AWARE. PATIENTS CENTRAL LINE LEAKING. WILL CONTINUE TO USE FOR NOW AND CHANGE DRESSING NEEDED. PATIENT HAS THIRD SPACING AND LEAKING FROM MOST PUNCTURE SITES. PATIENT DOES NOT NEED TELEMETRY AND CAN TRANSFER TO THE MEDICAL UNIT. WILL GIVE REPORT TO RITA MYLES.
--- NOTE | 2022-04-16 12:43 | OR ---
[facility] [address], [place] [address] Signed DATE OF OPERATION: 04/11/2022 SURGEON: Michael Pro MD PREOPERATIVE DIAGNOSIS: Systemic sepsis (recurrent), possible right internal jugular central venous catheter line infection. POSTOPERATIVE DIAGNOSIS: Systemic sepsis (recurrent), possible right internal jugular central venous catheter line infection. PROCEDURES: 1. Placement of left subclavian Arrow blue tip triple-lumen catheter (PowerPort type). 2. Explantation of right internal jugular central venous catheter with collection of tip for culture. ANESTHESIA: A 1% lidocaine. 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 The inciting, inflammatory lesion was likely localized perforated sigmoid diverticulitis without free air. He was in extremis at the time of going to the operating room and has recovered largely, but developed severe sepsis overnight for reasons that are unclear. His chest x-ray is normal. Abdominal x-ray relatively unremarkable. His white count is elevated, he is hypotensive, in need of ongoing central venous access. The most likely source of his recurrent sepsis is the central venous catheter line, though that is not certain. He is on [place]-Synephrine drip and on that basis, placement of central venous catheter is necessary. I reviewed with the patient and his daughter and son the risks of bleeding, infection, and pneumothorax related to placement of the catheter and they understand and wished to proceed. FINDINGS: Dark, nonpulsatile blood was noted from the left subclavian vein on the first pass. The catheter was placed without incident. Postprocedure chest x-ray showed good position and good function. DESCRIPTION OF PROCEDURE: Electronically Signed By: MICHAEL PRO MD 04/16/22 1243 PATIENT NAME: DAVID POTTS OPERATIVE REPORT DATE OF : 57 REPORT #: [id number] PHYSICIAN: MICHAEL PRO MD PCP: Tristan Carrera DO REPORT IS CONFIDENTIAL AND NOT TO BE RELEASED WITHOUT AUTHORIZATION [facility] [address], [place] [address] Signed The patient was placed in mild Trendelenburg position in the Intensive Care Unit in his bed. The face was turned to the right. The upper torso was prepared with a chlorhexidine solution and draped sterilely per hospital protocol. Mask, hat, gloves, and gown, all sterile were used. A 1% lidocaine was injected in the left infraclavicular space. Using the Seldinger technique with the Arrow blue tip power triple lumen catheter kit, the left subclavian vein was easily accessed on first pass showing dark nonpulsatile blood. A flexible J-wire was passed down the needle, the needle was removed. The site was incised with an 11 blade and dilated with the blue dilator and a previously inspected power type triple-lumen catheter, which had been previously flushed, was passed over the wire without problem. The wire was removed. Aspiration on the distal port showed dark nonpulsatile blood. The catheter was flushed devices in place and secured to the skin in the usual way with the enclosed suture. An anti-infective disk was applied as was a sterile dressing. A postprocedure chest x-ray showed good position of the catheter. Explantation of the right internal jugular catheter was then undertaken. The dressing was withdrawn and removed and securing sutures were incised. The catheter was carefully withdrawn and there did appear to be possible amount of limited purulence at the insertion site itself. The tip was removed fully and transected with sterile technique and sterile cups culture. The site was occluded with a gauze dressing. MD ARIA Mane/MODL /[id number] cc: Manasa Sorto MD Copies: MANASA SORTO MD ~ Electronically Signed By: MICHAEL PRO MD 04/16/22 1243 PATIENT NAME: DAVID POTTS OPERATIVE REPORT DATE OF : 57 REPORT #: [id number] PHYSICIAN: MICHAEL PRO MD PCP: Tristan Carrera DO REPORT IS CONFIDENTIAL AND NOT TO BE RELEASED WITHOUT AUTHORIZATION
--- NOTE | 2022-04-16 13:04 | NUR ---
CALLED AND GAVE REPORT TO ALFRED MYLES. REVIEWED PAST DAYS DURING HIS STAY UP TO CURRENT EVENTS. PATIENT UP TO THE CHAIR AT THIS TIME. PATIENT DENIES ANY OTHER NEEDS AT THIS TIME. MARIAMA AND MATEO MYLES WILL MOVE PATIENT TO THE MEDICAL UNIT AFTER REMOVING PATIENTS ONEIL CATHETER AND MIDLINE DRESSING PER MD HUSTON ORDERS. PATIENT AGREEABLE TO PLAN OF CARE. WILL CONTINUE TO CLOSELY MONITOR.
--- NOTE | 2022-04-16 13:51 | NUR ---
PT ALERT, ORIENTED AND VISITING WITH HIS KARLO. PT IS IN CHAIR, KARLO COMMENTED ON HOW MUCH BETTER HE SEEMS TO BE TODAY, PT AGREED. HAD GOOD VISIT, PT REQUESTED I CONTACT HIS ORACLE ERP DEVELOPER, WHICH I DID. HE WILL BE BY SHORTLY. VISITED IN QUIET RM WITH KARLO. EXPRESSED CONCERN TO HER ABOUT HOW SHE FEELS SHE IS DEALING WITH PT'S ILLNESS. 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 THEIR DAUGHTER HAS BEEN KEEPING A CLOSE WATCH ON HER. GAVE ENCOURAGEMENT, WILL FOLLOW
--- NOTE | 2022-04-16 13:55 | NUR ---
PATIENT TO MED SURG IN RECLINER. PHYSICAL THERAPY HERE AND PATIENT REQUESTED TO BE ABLE TO WORK WITH THEM. APPEARS TO BE TOLERATING ACTIVITY WELL.
--- NOTE | 2022-04-16 14:00 | NUR ---
PATIENT SURGICAL SITE MIDLINE ABDOMEN HAS DRESSING REMOVED, ALEXIA ARE INTACT SITE WNL. NOTED SOME BLOODY DRAIANGE FROM URETHRA POST ONEIL REMOVAL. PATIENT HAS 3X MIGUELITO TUBES, 2 ON THE LEFT SIDE AND 1 ON THE RIGHT. G TUBE THAT NEEDS TO BE FLUSHED B.I.D. LUNGS ARE CLEAR, USES HOME C-PAP WHEN SLEEPING. HAS [facility] AIR BED, AND AN ALLEVYN FOAM TO COCCYX FOR PREVENTATIVE SKIN BREAKDOWN. SKIN IS INTACT. PATIENT ON FULL LIQUID DIET, APPEARS TO BE TOLERATING WELL. IN ROOM VISITING WITH PATIENT. PLAN TO HAVE A TELEHEALTH VIRTUAL VISIT TOMORROW 1120. STOMA APPEARS PINK WITH SOME PETECHIA THAT DR. PRO IS AWARE OF.
--- NOTE | 2022-04-16 15:00 | NUR ---
PATIENT USING URINAL VOIDED 200 ML OF YELLOW URINE. PATIENT STATES " I FEEL LIKE I WAS ABLE TO EMPTY MY BLADDER". PATIENT REPORTS NO PAIN. MERREM INFUSING. WAS HUNG LATE AT 1430, SECONDARY TO PATIENT WORKING WITH PHYSICAL THERAPY. CALL TO PHARMACYPEARL PHARMACIST VERBALIZED TO INFUSE THE NEXT SCHEDULED DOSE AND THAT THERE WAS NO NEED TO RETIME.
--- NOTE | 2022-04-16 15:15 | PATH ---
[facility] [address], [place] [address] Signed SPECIMEN(S): A SEGMENT OF ILEUM SPECIMEN(S): B SEGMENT OF MID JEJUNUM SPECIMEN SOURCE: A. SEGMENT OF ILEUM B. SEGMENT OF MID JEJUNUM CLINICAL HISTORY: Laparotomy S/P bowel resection. Possible abscess. Severe sepsis. FINAL PATHOLOGIC DIAGNOSIS: A. Segment of ileum, segmental resection: - Ileum with ischemic necrosis with marked acute and chronic inflammatory changes. - Serosa demonstrates acute and chronic serositis. - Ileal tissue at the surgical resection margin appears viable, although one fragment demonstrates inflammation extending to it. - Portion of skin is identified, suggestive of an ileostomy site excision. B. Segment of mid jejunum, segmental resection: - Segment of ileum with patchy areas of mucosal ischemia and necrosis. - The central portion demonstrates full-thickness ischemia and necrosis. Necrosis involves one of the surgical resection margins. There is surrounding fat necrosis and acute inflammation. TWK:[facility]:C2NR MICROSCOPIC EXAMINATION: Histologic sections of all submitted blocks are examined by light microscopy. These findings, together with the gross examination, support the pathologic diagnosis. GROSS DESCRIPTION: Two specimens are received in two containers, labeled "RB." A. The specimen, labeled "RB, A," and designated on the requisition "segment of ileum," is received in formalin and consists of a previously opened, unoriented, markedly convoluted 0.7 cm long, from 2.2 up to 2.7 cm in diameter bowel segment with attached adipose tissue up to 5.2 cm wide. The bowel serosa is jones to dark brown, markedly ragged, diffusely covered in ontiveros exudate. One end of the bowel is closed by a 3.5 cm long staple line which is removed. The underlying tissue is inked blue. The opposing end is open, somewhat raised, with a rim of jones, grossly remarkable skin up to 0.2 cm PATIENT NAME: DAVID POTTS PATHOLOGY DATE OF : 57 REPORT #: [id number] PHYSICIAN: CHARLES PATHOLOGY PCP: Tristan Carrera DO REPORT IS CONFIDENTIAL AND NOT TO BE RELEASED WITHOUT AUTHORIZATION [facility] [address], [place] [address] Signed wide. The open end is consistent with a possible previous ostomy site. The bowel mucosa is jones to dark brown with a complete loss of folds. Additionally, the mucosa demonstrates multiple focal areas of cobble-stoning. The loss of folds and cobble-stoning grossly appear to involve the possible ostomy site and the blue inked margin. Due to the previous opening, a grossly definitive transmural defect or perforation cannot be determined. An additional discrete mass/lesion is not grossly identified. The attached adipose tissue is palpated for lymph nodes and no lymph nodes are grossly identified. Knowledge Management Advisor sections are submitted as follows: (A1) serosal ontiveros exudate (A2) perpendicular sections of the blue inked margin, including mucosal discoloration and loss of folds (A3) possible ostomy site (A4-A5) remaining mucosa B. The specimen, labeled "RB, B," and designated on the requisition "segment of mid jejunum," is received in formalin and consists of a previously opened, markedly ragged, unoriented, 35.7 cm long, firm 2.0 up to 2.5 cm in diameter bowel segment with attached adipose tissue up to 2.2 cm wide. One end is closed by a 4.2 cm long staple line, which is removed, and the underlying tissue is inked blue. The opposing end is closed by a 4.5 cm long staple line which is removed, and the underlying tissue is inked orange. The midportion of the specimen, 5.8 cm from the orange inked staple line and 6.9 cm from the blue inked staple line, is markedly ragged dark green discolored and has multiple possible defects. The bowel wall in most areas is markedly thinned and softened. The serosa in this area is dark green discolored and the bowel has lost all architecture with a limp appearance. The bowel mucosa is jones with green with a complete loss of folds. The remaining serosa is jones to dark brown with multiple focal areas of adherent ontiveros exudate. The remaining mucosa is jones to dark brown, ragged with a marked loss of folds. The discoloration and loss of folds grossly appear to involve both the blue inked and orange inked margin. The serosa, 2.2 cm from the blue inked margin, and has a black suture. The suture is without a discrete mass/lesion and is inked black. An additional discrete mass/lesion is not grossly identified. The attached adipose tissue is briefly palpated for lymph PATIENT NAME: DAVID POTTS PATHOLOGY DATE OF : 57 REPORT #: [id number] PHYSICIAN: CHARLES BURT PCP: Tristan Carrera DO REPORT IS CONFIDENTIAL AND NOT TO BE RELEASED WITHOUT AUTHORIZATION [facility] [address] [place] [id number] Signed nodes and no lymph nodes are grossly identified. Knowledge Management Advisor sections are submitted as follows: (B1) perpendicular sections of the blue inked margin including black suture (B2-B3) mid, discolored, ragged portion of bowel (B4) perpendicular sections of the orange inked margin (B5) auto service representative section of remaining mucosa AI (under the direct supervision of a pathologist) The Gross Description was prepared using a voice recognition system. The report was reviewed for accuracy; however, sound-alike word errors, addition and/or deletions may occur. If there is any question about this report, please contact Client Services. PERFORMING LABORATORY: The technical component was performed by [employer], [address] [place] [address] (CLIA# [id number]). The professional interpretation was performed by [facility], [facility], [address] [place] [id number] (CLIA#: [id number]). Diagnostician: Bentley Beltran MD Pathologist Electronically Signed 04/16/2022 Copies: ~ PATIENT NAME: DAVID POTTS PATHOLOGY DATE OF : 57 REPORT #: [id number] PHYSICIAN: CHARLES BURT PCP: Tristan Carrera DO REPORT IS CONFIDENTIAL AND NOT TO BE RELEASED WITHOUT AUTHORIZATION
--- NOTE | 2022-04-16 18:00 | NUR ---
PATIENT TOLERATING FULL LIQUID DIET WELL, NO NAUSEA. SURGICAL SITE TO ABDOMIN OPEN TO AIR, NO S/S INFECTION. PATIENT UP TO RECLINER, TRANSFERED WELL WITH 2 PERSON ASSIST. REPORTS PAIN TOLERABLE 2/10 ON PAIN SCALE. PROVIDED WARM BLANKETS, NO OTHER NEEDS AT THIS TIME.
--- NOTE | 2022-04-16 22:25 | NUR ---
Pt on bariatric/pressure prevention bed. on room air. lungs clear bilat. no c/o pain. L Jugular CL patent. no c/o adverse reaction to abx. 2JP on L abd, 1R low abd w serous pink drainage. L upper abd PEg tube patent. R abd stoma patent. draining liquid drainage. yellow drainage noted around stoma nad MIGUELITO site area. lower stoma wafer area reinforced. whole bed changed. Cooperative, helped with repositioning. edema to LE. uses call light, fresh fluids at bedside
--- NOTE | 2022-04-16 23:30 | NUR ---
WITH RN, 2PA FWW PIVOT PT TO THE CHAIR SO PT CAN BE PLACED IN A DIFFERENT MEDICAL BED, PIVOT BACK TO BED, TUCKED IN, NO FURTHER NEEDS AT THIS TIME
--- NOTE | 2022-04-17 01:25 | NUR ---
pt awake, using home CPAP, c/o insomnia, medicated with Melatonin 6mg po, took w/o problems, call light and fludis at bedside
--- NOTE | 2022-04-17 03:19 | NUR ---
IN TO EMPTY OSTOMY
--- NOTE | 2022-04-17 06:00 | NUR ---
yellow drainage noted underneath dressing L MIGUELITO insertion area and distal end and last stapled midline abd incision. yellow thick drainage noted. all Miguelito slightly pink at insertion site, small amount of yellow drainage present in all 3. dressing changed to both MIGUELITO L side. R side MIGUELITO dressing changed too. open abd applied to lower end of midline abd incision, slight dehiscense of sutures present. Dr Villatoro to be notified. pt denies c/o abd pain at thist reno. Stoma patent, draining drainage between brown/green and pinkish thick liquid drainage. Pt coop.
--- NOTE | 2022-04-17 06:45 | NUR ---
DISCUSSED PRELIMINARY BODY FLUID CULTURE AER/BRYN/GS OVER PHONE WITH DR PRO AND MADE AWARE OF: GRAM STAIN RESULT OF MANY GRAM POSITIVE COCCI AND MANY GRAM NEGATIVE RODS, ANAEROBIC CULT, EXTENDED INTUBATION SHOWS STILL IN PROGRESS, AND BODY FLUID CULTURE SHOWS SCANT GROWTH OF PSEUDOMONAS AERUGINOSA, MODERATE GROWTH OF ENTEROCOCCUS FAECIUM, AND SCANT YEAST GROWTH. TELEPHONE ORDER READ BACK FOR 200MG PO DAILY DIFLUCAN START TODAY. DISCUSSED INTERACTION BETWEEN NEW MED AND ZOFRAN WITH PEARL FROM PHARMACY. PER PHARMACY, OKAY TO CONTINUE.
--- NOTE | 2022-04-17 06:45 | NUR ---
DISCUSSED PRELIMARY RESULTS OF BODY FLUID CULTURE AER/BRYN/GS WITH DR SOTO. NO NEW ORDERS RECEIVED AT THIS TIME, TO REVIEW RESULTS AND DECIDE ON POC.
--- NOTE | 2022-04-17 07:30 | NUR ---
REPORT RECEIVED FROM NIGHT RN - PT RESTING IN BED AWAKE, AAO. DENIES NEEDS AT THIS TIME.
--- NOTE | 2022-04-17 08:41 | NUR ---
RN IN ROOM TO ADMINISTER SCHEDULED MEDICATIONS. PT AMBULATING UP TO CHAIR WITH KNOTTING MACHINE OPERATOR PORTABLE'S ASSISTANCE. AM CARE PROVIDED BY CNAS. PT STATES HE IS FEELING TIRED TODAY AND IS DISCOURAGED WITH HIS BODY. PT APPEARS MORE FLAT AND FATIGUED. PHONE AND CALL LIGHT AND BEDSIDE TABLE IN REACH.
--- NOTE | 2022-04-17 09:55 | NUR ---
RN IN ROOM TO COMPLETE ASSESSMENT. PT REPORTS 10/10 ABD PAIN AND NAUSEA. ZOFRAN AND MORPHINE PRN ADMINISTERED. MIGUELITO DRAIN #2 PUTTING OUT INCREASED AMOUNT OF PURULENT DRAINAGE WHICH IS NEW ACCORDING TO PREVIOUS OUTPUT DOCUMENTATION. MIDLINE INCISION NOTED TO BE MILDLY DEHISED ON INFERIOR PORTION WITH YELLOW DRAINAGE NEEDING ABD TO ABSORB DRAINAGE. ABD SOFT BUT DISTENDED. VS STABLE, MILD ELEVATED HR, AFEBRILE. CL HEPLOCKED AFTER ABX INFUSIONS COMPLETE.
--- NOTE | 2022-04-17 11:01 | NUR ---
SHAR TELLEZ IN CARING FOR PT AT THIS TIME. DID NOT DISURB. WILL CHECK BACK
--- NOTE | 2022-04-17 11:20 | NUR ---
DR. PRO CALLED AND NOTIFIED OF CONCERN OF MIGUELITO DRAINAGE AND WOUND DEHIS/DRAINAGE. STATES HE WILL BE IN TO ASSESS SHORTLY.
--- NOTE | 2022-04-17 12:59 | OR ---
[facility] [address], [place] [address] Signed DATE OF OPERATION: 04/11/2022 SURGEON: Michael Pro MD PREOPERATIVE DIAGNOSIS: Recurrent sepsis with probable intra-abdominal abscesses, left and right abdomen. POSTOPERATIVE DIAGNOSES: 1. Left and right intra-abdominal abscess. 2. Total liquefactive necrosis of segments of small bowel, mid jejunum and terminal ileum. PROCEDURES: 1. Exploration of the abdomen and drainage of intra-abdominal abscesses with extensive peritoneal irrigation and placement of drains. 2. Segmental small bowel resection x2 with end ileostomy and [id number] enteroenterostomy. ANESTHESIA: General endotracheal; Michael Mills CRNA INDICATIONS: This 66-year-old white man was admitted by Dr. Sorto on March 30, 2022. 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 Operation included subtotal colectomy with rectal pouch, end-ileostomy and placement of a decompressive gastrostomy tube. The patient required pressor agents to maintain an adequate mean arterial pressure for relatively prolonged amount of time. He ultimately recovered from that with weaning of his pressor agents and began to have good recovery, however. He began to have ileostomy output and ultimately advanced to regular feeding in the past few days. He did have findings of thrombocytopenia, which was attributed to a drug-induced cause for which antibiotics were withdrawn and the platelet count began to rise. Last night, he began to have hypotension once again, as well as elevation of his creatinine and potassium and lactic acid up to 3.5. Chest x-ray was normal and abdominal KUB today showed some dilated loops of small bowel. His right internal Electronically Signed By: MICHAEL PRO MD 04/17/22 1259 PATIENT NAME: DAVID POTTS OPERATIVE REPORT DATE OF : 57 REPORT #: [id number] PHYSICIAN: MICHAEL PRO MD PCP: Tristan Carrera DO REPORT IS CONFIDENTIAL AND NOT TO BE RELEASED WITHOUT AUTHORIZATION [facility] [address], [place] [address] Signed jugular central venous catheter was changed with suspicion of possible line sepsis. He was initiated on meropenem antibiotic as well as daptomycin. A non-IV contrast but GI containing contrast CT scan was performed today, which showed two large fluid collections highly suspicious for intra-abdominal abscess, one in the right side of the abdomen and the other in the left lower area. The patient improved with Richmond-Synephrine, pressor agents, IV antibiotics, fluid resuscitation and so forth. He does not have tenderness of the abdomen to any degree at all. The ileostomy appeared to be somewhat ischemic however and on that basis, I have recommended laparotomy to assess for intra=abdominal causes of abscess as well as drainage of the abscesses as appropriate. The patient, his and daughter understand my recommendation and agree to proceed. They understand the risk of bleeding, infection, need for other indicated procedures and of course, recurrent organ failure and agreed to proceed. FINDINGS: Extremely foul infected fluid collections were noted, one in the right side of the abdomen extending cephalad. The other in the left side mostly towards the pelvis as noted on the CT scan. These were clearly related to segmental ischemic areas of bowel with essentially liquefactive necrosis of the segment of jejunum as well as the ileum. Drainage of the fluid was undertaken and interloop fluid collections were broken down. The bowel appeared viable, extending from the 4th portion of the duodenum to the frankly infarcted segment of the mid jejunum as well as other segments of bowel, but not viable and with the liquefactive necrosis in the ileum. Two segments of small bowel were resected, the proximal jejunal one with a [id number] functional end-to-end enteroenterostomy and the ileal segment brought out as ileostomy. The patient required significant pressor support including Richmond-Synephrine and epinephrine and visibly the bowel could be seen with poor perfusion even despite obvious palpable large vessel mesenteric preservation of blood flow. He remains in critical condition. Drains were placed in the right abdomen extending over the dome of the liver as well as on the left side extending over the spleen and beneath the diaphragm and also into the left pelvis. The remaining segment of the colon was well marked with Prolene suture and viable. There was no apparent abnormality to the gastrostomy tube which was well positioned. DESCRIPTION OF PROCEDURE: The patient was brought to the operating room, given a general endotracheal anesthetic. The pressor agent Richmond-Synephrine was ongoing and the justowriter operator initiated epinephrine as a drip as well. A Sellers catheter was already in place. The G-tube was allowed to drain to a dependent suction. The ileostomy appeared to have a diminished vascularity and a eileen necrosis at this point. The clips from the previous closure were removed Electronically Signed By: MICHAEL PRO MD 04/17/22 1259 PATIENT NAME: DAVID POTTS OPERATIVE REPORT DATE OF : 57 REPORT #: [id number] PHYSICIAN: MICHAEL PRO MD PCP: Tristan Carrera DO REPORT IS CONFIDENTIAL AND NOT TO BE RELEASED WITHOUT AUTHORIZATION [facility] [address], [place] [address] Signed and the abdomen was then prepared with a chlorhexidine solution extending to the thighs on the possibility of need for vascular reconstruction. The midline fascia was opened removing the PDS suture for intra-abdominal exploration. Immediately noted was a very foul odor upon opening the abdomen. There was a fluid collection that was large and dark and essentially with enteric contents in the left lower quadrant, which was suctioned free and Gram stain and culture was obtained. A similar such collection was noted in the right side of the abdomen. The small bowel loops were quite viable that were noted in the midline. The bowel loops were broken down with blunt dissection showing central abdominal compartment to have a very viable small bowel segments throughout. In the area where the abscesses were on both the left and right side, however, there were segments of bowel that were completely necrotic with liquefactive necrosis and grossly opened ends of bowel. The bowel loops were freed with blunt dissection ultimately explanting both left and right sides out of the abdomen. The ileostomy site was incised and it to be delivered back into the abdominal cavity. The segments of bowel that were ischemic were almost certainly related to his need for pressor agents perioperatively previously, I believe. The viability of the central segment of small bowel was completely normal as was the duodenum. Segments of bowel, which included the liquefactive necrotic parts were delineated carefully and mesentery scored with electrocautery and hemostasis assured with the application of hemostats and 0 silk ties. The terminal ileum was transected with VENITA stapling device and that segment of bowel was passed for pathology. The jejunal segment which was in the midportion was similarly dissected free isolating the mesenteric vessels and securing them with 0 silk ties. The jejunal segment was transected with VENITA stapling device. Subsequently, a [id number] functional end-to-end enteroenterostomy undertaken with a VENITA stapling device. The sites were oversewn with running 3-0 Vicryl and interrupted 3-0 silk suture for the serosal layer. Copious irrigation of the intra-abdominal cavity was undertaken breaking down any other loculations particularly over the dome of the liver and in the upper abdomen as well. By this point, the abdomen smelled far better than previously. There was no sign of persistent abscess. Notably, the retained rectal segment was viable and the Prolene sutures marking its location were well preserved. Irrigation was undertaken more fully. The end ileostomy segment was delivered out of the ostomy site once again, although edematous, passed out reasonably well. At this point, the patient had been on pressor agents once again for a relatively prolonged period and mild ischemic changes were noted throughout. Whether this was global poor perfusion or augmented by the pressor agents is uncertain, but both no doubt contributed to it. The midline fascia was reapproximated with a running #1 PDS suture, subcutaneous Electronically Signed By: MICHAEL PRO MD 04/17/22 1259 PATIENT NAME: DAVID POTTS OPERATIVE REPORT DATE OF : 57 REPORT #: [id number] PHYSICIAN: MICHAEL PRO MD PCP: Tristan Carrera DO REPORT IS CONFIDENTIAL AND NOT TO BE RELEASED WITHOUT AUTHORIZATION [facility] [address] [place] [id number] Signed tissue irrigated and skin closed with a clip device. The ileostomy was matured with interrupted 2-0 Vicryl suture everting the edges as best as could be possible. As ostomy appliance was applied as were gauze dressings to the three drain sites. The patient was transferred in critical condition from the operating room to the intensive care unit for further management. Blood loss was about 200 mL. Sponge, needle and instrument counts were reported as correct x3 Michael Pro MD JM/MODL /[id number] cc: Manasa Sorto MD Copies: MANASA SORTO MD ~ Electronically Signed By: MICHAEL PRO MD 04/17/22 1259 PATIENT NAME: DAVID POTTS OPERATIVE REPORT DATE OF : 57 REPORT #: [id number] PHYSICIAN: MICHAEL PRO MD PCP: Tristan Carrera DO REPORT IS CONFIDENTIAL AND NOT TO BE RELEASED WITHOUT AUTHORIZATION
--- NOTE | 2022-04-17 14:33 | NUR ---
PATIENT WAS ON FULL LIQUIDS FOR 2 DAYS AND NOW BACK TO CLEAR LIQUIDS AND TPN RESTARTED TODAY. TPN IS RX'D AT 2 L 15% DEXTROSE, 5% AA, 500 ML 20% LIPIDS (M-W-[id number]). THIS PROVIDES AN AVERAGE OF 1,848 CALORIES AND 100 GM PROTEIN PER 24 HOURS. PATIENT RECEIVES CLEAR ENSURE WITH CLEAR LIQ TRAYS. NO FURTHER NUTRITION INTERVENTION AT THIS TIME. WILL CONTINUE TO MONITOR.
--- NOTE | 2022-04-17 14:36 | NUR ---
PATIENT IN BED RESTING. OSTOMY DRAINED. VITALS AND I/O'S COMPLETED. NO OTHER NEEDS AT THIS TIME. CALL LIGHT WITHIN REACH.
--- NOTE | 2022-04-17 16:30 | NUR ---
TPN and lipids started per provider order. Verified with SHAR Adams. Patient resting in bed, a&ox4, no distress. Patient denies needs at this time.
--- NOTE | 2022-04-17 19:03 | NUR ---
PATIENT IN BED RESTING VITALS AND I/O'S COMPLETED. CALL LIGHT WITHIN REACH.
--- NOTE | 2022-04-17 19:53 | NUR ---
Awake, alert, watching tv, no c/o. TPN and Lipids infusing. cll light at hands reach, in [facility] C[facility] bed.
--- NOTE | 2022-04-17 21:35 | NUR ---
PT ON ROOM AIR, COOP WITH ASSESSMENT, CLEAR LUNGS, NO COUGH. L JUGULAR CL PATENT, LIPIDS, TPN AND MERREN INFUSING. SITE INTACT. ABD DISTENDED, TENDER, DENIES NEED FOR PAIN MED AT THIS TIME. MIDLINE INCISION W ALEXIA UPPER AND MID INCISON EDGES WELL APPROX DRY. OPEN TO AIR. LOWER 2 ALEXIA DOWN SLIGHT DEHISENT NOTED. YELLOW DRAINAGE SCANT AMOUNT NOTED. R MIGUELITO DRESSING INTACT. R STOMA PATENT DRAINING DARK COLORED LIQUID DRAINAGE. 2 MIGUELITO L SIDE DRESSING CHANGES, SLIGHT DRAINAGE YELLOW COLORED. ALL 3 MIGUELITO WITH PINKISH CLOUDY DRAINAGE. USES URINAL. SKIN CARE, DONE, WAS INCONTNENT/DRIBBLING FROM EHEN USING URINAL. WHOLE BED CHANGED, CLEAN GOWN. HELPED WITH TURNING AND REPOSITIONING. SCDS IN PLACE, GENERALIZED EDEMA TO L HAND AND LE. TOLERATING CLEAR LIQUIDS. CBG REQUIRING 4 UNITS SS. PLEASANT, CPAP AT BEDSIDE SCROTUM IMPROVED.
--- NOTE | 2022-04-17 23:07 | NUR ---
Pt on room air, resting on his back, eyes closed no distress. L Jugular CL patent. TPN/Lipids infusing . scds in place. call light and fluids at hands reach, using urinal, voiding medium yellow urine. Received Melatonin earlier at his requests, insomnia. effective
--- NOTE | 2022-04-17 23:40 | NUR ---
PT AWAKES EASILY, CPAP AT BEDSIDE, "ILL PUT IT OWN HERE SHORTLY AT MIDNIGHT' STATED, ON ROOM AIR AT THIS TIME. TPN/LIPIDS INFUSING. TOLERATING SIPS OF CLEAR FLUIDS AT THIST RAMOS. STOMA FILLING UP WITH GAS AND LIQUID RED/PINK/BROWN/GREEN HUED LIQUID THICK DRAINGE. NO ODOR. DRESSING OVER ALL 3 MIGUELITO AND PEG TUBE PATENT. DRY. CALL LIGHT AND FLUIDS AT HANDS REACH. ON AR BED
--- NOTE | 2022-04-18 01:52 | NUR ---
received 2 units ss insulin. awakes easily, was using CPCP, took off at thitime, TPN and Lipids infusing. coop. stoma drainaged again, no leakage noted. dressing over 3 MIGUELITO intact, coop with assessment. midline incision no changes. using urinal. fluids and call light at hands reach
--- NOTE | 2022-04-18 04:10 | NUR ---
on room air, cpap at bedside, IVF infusing lipids/TPN.,abx, eyes closed, no distress. uses urinal, fluids and call light at hands reach
--- NOTE | 2022-04-18 04:45 | NUR ---
IN TO EMPTY URINALS, OSTOMY, RN ALSO IN RM, VS TAKEN, FRESH ICE WATER PROVIDED, NO FURTHER NEEDS AT THIS TIME
--- NOTE | 2022-04-18 05:14 | NUR ---
LONG DISCUSSION ABOUT CPAP USE AT HOME. HE TELLS A GOOD STORY AND KNOW THE WORKING OF THE EQUIPMENT AND HOW TO CHANGE FROM CPAP TO NC. HE ADMITS HE HAS BEEN SLEEPING IN A CHAIR AND NOT GOING TO BED THIS WEEK WHERE IS CPAP IS. OVER 30 MINUTES SPENT ON EDUCATION. COLLEEN STATES HIS TRILOGY IS TO ARRIVE SOON. CPAP IS NOT ADEQUATE FOR HIM HE NEEDS A BACK UP RATE. HE ALSO STATES HE USES A NASAL MASK WITH NO CHIN STRAP, I HAVE OBSERVED HIM SLEEPING AND HE SLEEPS WITH HIS MOUTH OPEN. HE STATES HE HAS SOME FULL FACE MASK AND I ADVISED HIM THAT THEY ARE THE BETTER OPTION.
--- NOTE | 2022-04-18 05:18 | NUR ---
Pt on room air, used CPAP off and on through the night. currently using CPAP. clear lungs, no sob with exertion. weakness all extremities, helps with transferring. midline abd incision with nichol upper portion CDI, edges well approx. lower end of incision moist draining serous drainage. no odor. slight gaping areas lower incision. R stoma patent draining liquid drainage, greenigh/brown colored at times. MIGUELITO RLow abd with pinkish purulent drainage and same at the L sided 2 MIGUELITO. all 3 MIGUELITO with pink/red skin around insertion site. and scant amount yellow drainage at insertion site. dressings changed earlier on shift. open abd applied to lower midline incision moist area. L Jugular CL patent, infusing LIPIDS/TPN and merren, no c/o adverse reaction to abx. L PEG tube patent. has had no c/o abd pain at this time. Abd soft, tender, denies passing gas, gas noted in stoma. MICHELLE. uses urinal, voiding frequent small amount of medium dark urine. uses call light, no emesis Pt on ARJO bed
--- NOTE | 2022-04-18 06:40 | NUR ---
c/o abd pain, medicated with morphine 4mg. using CPAP at this time, TPN infusing and Merren. tolerated sips of fluids
--- NOTE | 2022-04-18 07:30 | NUR ---
report received from night rn - plan of care reviewed
--- NOTE | 2022-04-18 08:14 | NUR ---
RN IN ROOM TO ADMINISTER SCHEDULED MEDICATIONS. PT RESTING IN BED AWAKE WITH CPAP APPLIED. STATES HE HAD A RESTFUL NIGHT. OSTOMY APPLIANCE FOUND TO BE LEAKING AROUND STOMA, NEW ONE APPLIED - NO SKIN BREAKDOWN OR IRRITATION NOTED. STOMA SOFT AND PINK. GTUBE FLUSHED WITHOUT DIFFICULTY. DRESSINGS AROUND J TUBES CHANGED. MIDLINE REMAINS OPEN TO AIR WITH ALEXIA, MILD DIHISSENCE AT DISTAL PART OF INCISION - YELLOW/GREEN DRAINAGE. MIGUELITO #2 CONTINUES TO PUT OUT WHITE CLOUDY DRAINAGE.
--- NOTE | 2022-04-18 10:12 | NUR ---
PT UP TO CHAIR USING FWW AND 2 PERSON ASSIST. INCREASED STRENGTH. ABX STARTED IV. ASSESSMENT COMPLETE. PT DENIES PAIN OR NAUSEA AT THIS TIME.
--- NOTE | 2022-04-18 11:45 | NUR ---
RN IN ROOM TO ADMINISTER MEDICATIONS. PT REMAINS UP IN CHAIR, DENIES PAIN ON TAILBONE WITH HIPS FLOATED ON PILLOWS. CALL LIGHT AND PHONE IN REACH.
--- NOTE | 2022-04-18 14:12 | NUR ---
RN IN ROOM TO CHANGE CENTRAL LINE DRESSING - COMPLETED WITHOUT DIFFICULTY, NO SIGNS OF INFECTION. ASSESSMENT COMPLETE. AT BEDSIDE VISITING WITH PT.
--- NOTE | 2022-04-18 16:59 | NUR ---
RN IN ROOM TO START TPN, VERIFIED WITH PROP CUTTER. DISTAL LUMAN FLUSHED WITH EASY BLOOD RETURN. PT IN CHAIR EATING DINNER.
--- NOTE | 2022-04-18 20:08 | NUR ---
RECEIVED REPORT FROM DAY SHIFT RN. PATIENT IS RESTING IN BED NO NEEDS NOTED. CALL LIGHT IN REACH.
--- NOTE | 2022-04-18 20:50 | NUR ---
PATIENT ASSESMENT COMPLETED. PATIENTS VITALS TAKEN AND RECORDED. INTAKE AND OUTPUT RECORDED. PATIENTS DRAINS EMPTIED. OSTOMY EMPTIED. DRAIN DRESSINGS CHANGED. G-TUBE FLUSHED PER ORDER. PATIENTS PM MEDS GIVEN PER ORDER. PATIENT DENIES ANY PAIN OR NAUSEA. PATIENTS IV INFUSING PER ORDER. PATIENTS SCDS IN PLACE. MIDLINE IS C/D/I, ALEXIA PRESENT, OPEN TO AIR, AND NOTED OPEN AREAS AT BOTTOM OF INSISION. PATIENT GIVEN PRN MELATONIN PER ORDER. NO FURTHER NEEDS NOTED. CALL LIGHT IN REACH.
--- NOTE | 2022-04-18 23:12 | NUR ---
WATER PLACED IN HOME CPAP. ALL LIGHTS TURNED OFF PER REQUEST. NO FURTHER NEEDS NOTED. CALL LIGHT IN REACH.
--- NOTE | 2022-04-19 01:52 | NUR ---
PATIENT IS RESTING IN BED. SCHEDULED MEDS PER ORDER. PATIENT DENIES ANY PAIN OR NAUSEA. MIGUELITO'S AND OSTOMY EMPTIED. PATIENT SPILLED URINAL. GOWN AND BEDDING CHANGED. PATIENT DENIES ANY FURTHER NEEDS CALL LIGHT IN REACH.
--- NOTE | 2022-04-19 03:12 | NUR ---
PATIENT ASSISTED TO CHANGE WET GOWN Pt INCONT URINE. PATIENT DENIES ANY FURTHER NEEDS. CALL LIGHT IN REACH.
--- NOTE | 2022-04-19 06:42 | NUR ---
PATIENT INFUSIONS INTO CENTRAL LINE PLACED IN STANDBY FOR 10MIN. X3 LUMENS FLUSHED WITH 15ML NS. BLOOD DRAWN FROM BLUE PORT AND 10ML WASTED. BLOOD DRAWN FROM BLUE PORT, LABELED AND SENT TO LAB. ALL INFUSION S RESUMED. VITALS TAKEN AND RECORDED. INTAKE AND OUTPUT RECORDED. ALL DRAINS EMPTIED. OSTOMY EMPTIED. URINAL EMPTIED. PATIENT IS AAOX4. PATIENTS AM MEDS GIVEN PER ORDER. PATIENT PROVIDED WITH FRESH ICE WATER. PATIENT IS RESTING IN BED WEARING HOME CPAP. NO FURTHER NEEDS NOTED. CALL LIGHT IN REACH.
--- NOTE | 2022-04-19 07:30 | NUR ---
patient resting in bed with cpap on. blood suagr checked. patient states no further needs at this time. call light within reach.
--- NOTE | 2022-04-19 07:30 | NUR ---
REPORT RECEIVED FROM NIGHT RN - PLAN OF CARE REVIEWED. PT RESTING IN BED WITH CPAP ON. CALL LIGHT IN REACH.
--- NOTE | 2022-04-19 09:23 | NUR ---
RN IN ROOM TO ADMINISTER SCHEDULED MEDICAITONS - PT RESTING IN BED AWAKE BUT WITH CPAP ON. MIDLINE INCISION IMPROVED IN APPEARANCE. MIGUELITO DRAINS INTACT AND DRAINING, DRESSINGS C/D/I. OSTOMY PINK AND DRAINING ADEQUATE AMOUNTS OF GREEN LIQUID STOOL. PT VOIDING INCREASED AMOUNTS OF CLEAR YELLOW URINE.
--- NOTE | 2022-04-19 10:22 | NUR ---
IV ANTIBIOTICS ARE FINISHED INFUSING. WHITE PORT ON CENTRAL LINE FLUSHED WITH 10ML NS.
--- NOTE | 2022-04-19 10:44 | NUR ---
PATIENT GIVEN 4MG IV MORPHINE PRIOR TO PHYSICAL THERAPY.
--- NOTE | 2022-04-19 11:02 | NUR ---
PATIENT UP TO WALK WITH PHYSICAL THERAPY, UP TO CHAIR AFTER.
--- NOTE | 2022-04-19 11:51 | NUR ---
RN IN ROOM TO ADMINISTER SCHEDULED MEDICATIONS. MAG RIDER STARTED. PT REMAINS UP IN CHAIR, STATES TAILBONE IS SORE - DEMONSTRATED ABILITY TO SELF REPOSISTION.
--- NOTE | 2022-04-19 13:31 | NUR ---
RN IN ROOM TO ADMINISTER SCHEDULED MEDICATIONS. IN ROOM TO VISIT. PT REMAINS UP IN CHAIR WITH FEET ELEVATED. TOLERATING FULL LIQ LUNCH WITHOUT NAUSEA. ASSESSMENT UNCHANGED.
--- NOTE | 2022-04-19 14:37 | NUR ---
TAP GRINDER'S IN ROOM TO BATHE PT IN SHOWER. AT BEDSIDE.
--- NOTE | 2022-04-19 18:16 | NUR ---
RN IN ROOM TO ROUND ON PT - TOLERATING REG DIET WITHOUT NAUSEA HOWEVER HE APPROACHING IT CAUTIOUSLY.
--- NOTE | 2022-04-19 19:30 | NUR ---
REPORT RECEIVED FROM DAY SHIFT RN. PT LYING IN BED ALERT AND ORIENTED. DENIES NEEDS. WHITE BOARD UPDATED. CALL LIGHT IN REACH.
--- NOTE | 2022-04-19 20:30 | NUR ---
EVENING ASSESSMENT COMPLETE. SCHEDULED MEDS ADMIN PER EMAR. PT DENIES PAIN OR NAUSEA AT THIS TIME. IV ABX AND TPN INFUSING WNL. CENTRAL LINE DRESSING INTACT. WHITE PORT PULSATILE FLUSH WITH NS AND HEP LOCKED PER ORDER. MIDLINE ABD INCISION WITH ALEXIA INTACT. OPEN TO AIR WITH SMALL OPEN AREAS AT DISTAL END. NO DRAINAGE NOTED AT THIS TIME. MIGUELITO X 3 PATENT WITH SCANT AMOUNT SEROSANG DRAINAGE AT THIS TIME. OSTOMY EMPTIED. G-TUBE FLUSHED WITH 50 ML TAP WATER. BOWEL TONES ACTIVE. SCD'S IN PLACE. 2PA TO REPOSITION IN BED. PT DENIES QUESTIONS OR CONCERNS. CALL LIGHT IN REACH.
--- NOTE | 2022-04-19 23:11 | NUR ---
PT AWAKE WITH HOME CPAP IN PLACE. URINAL EMPTIED. DENIES NEEDS AT THIS TIME. CALL LIGHT IN REACH.
--- NOTE | 2022-04-20 00:09 | NUR ---
CALL LIGHT ANSWERED. EMPTIED 3 URINAL. WHITE BOARD UPDATED. SCD'S CHECKED AND BEEPING STOPPED. PATIENT DENIES FURTHER NEEDS.
--- NOTE | 2022-04-20 01:37 | NUR ---
IV ABX INFUSING PER ORDER. INSULIN ADMIN PER SLIDING SCALE. PT DENIES PAIN OR NAUSEA. REPORTS HE IS RESTING WELL. OSTOMY EMPTIED OF 300 ML SOFT STOOL. MIGUELITO'S X 3 WITH SCANT AMOUNT DRAINAGE. MIGUELITO #2 NOTED TO HAVE SCANT PURULENT DRAINAGE IN TUBING. URINAL EMPTIED. PT DENIES NEEDS. CALL LIGHT IN REACH.
--- NOTE | 2022-04-20 04:05 | NUR ---
PT RESTING IN BED WITH EYES CLOSED. RESPIRATIONS EVEN. CPAP IN PLACE. CALL LIGHT IN REACH.
--- NOTE | 2022-04-20 06:19 | NUR ---
MORNING LABS DRAWN FROM CENTRAL LINE PER PROTOCOL. SCHEDULED MEDS ADMIN PER EMAR. PT UP TO SIDE OF BED FOR LINEN CHANGE. REPORTS ABD PAIN 8/10 AFTER ACTIVITY. PRN FOR PAIN ADMIN. VS AND I&O OBTAINED. NO FURTHER NEEDS. CALL LIGHT IN REACH.
--- NOTE | 2022-04-20 07:30 | NUR ---
PATIENT REPORT GIVEN TO THIS RN BY SHAR COMBS. PATIENT RESTING QUIETLY ON HIS CPAP MACHINE, EYES CLOSED, RESPIRATIONS ARE REGULAR AND EVEN, AND CALL LIGHT IS IN REACH. PATIENT HAS NO NURSE CARE NEEDS AT THIS TIME.
--- NOTE | 2022-04-20 09:15 | NUR ---
AM ASSESSMENT COMPLETE AND PATIENT SAYS HIS PAIN AND NAUSEA ARE CONTROLLED AT THIS TIME AND DENIES THE NEED FOR MEDS. CENTRAL LINE SITES FLUSHED WITH 20MLS NS AND EXCEPT FOR THE TPN LINE. PATIENT'S ICE WATER REFILLED AND PATIENT DENIES ANY CARE NEEDS AT THIS TIME.
--- NOTE | 2022-04-20 09:59 | NUR ---
THIS RN IN TO MEDICATE PATIENT FOR NAUSEA AND PAIN PRIOR TO PT WORKING WITH HIM. 4MG SIVP ZOFRAN GIVEN AND 4MG SIVP MS GIVEN FOR 7/10 ABD PAIN. PT TO BE IN IN ABOUT 30 MINUTES. CALL LIGHT IN REACH AND PATIENT DENIES ANY CARE NEEDS AT THIS TIME.
--- NOTE | 2022-04-20 10:38 | NUR ---
MELECIO CALLED AND REMAINS NAUSEATED. THIS RN GAVE 12.5MG IV PROMETHAZINE IN 20MLS NS GIVEN PER PROTOCOL IN CENTRAL LINE. IS IN THE ROOM TALKING WITH THE PATIENT. PATIENT'S PAIN REMAINS 6/10 IN HIS ABD AT THIS TIME. CALL LIGHT IS IN REACH AD THIS RN GOING TO GET SOME MORE MS FOR THE PATIENT.
--- NOTE | 2022-04-20 10:48 | NUR ---
4MG SIVP MS REPEATED FOR PATIENT'S ABD PAIN IS 6/10, NAUSEA IS GETTING BETTER. PATIENT'S URINAL EMPTIED. PATIENT HAS NO OTHER CARE NEEDS AT THIS TIME. CALL LIGHT IS IN REACH.
--- NOTE | 2022-04-20 11:41 | NUR ---
THIS RN WALKED WITH PATIENT AND PT AROUND 1/2 OF THE MED/SURG UNIT AND HE TOLERATED THIS WELL. PATIENT'S MIGUELITO'S DRAINED BY THIS RN. PT STILL WORKING WITH PATIENT NOW BACK IN ROOM IN THE BEDSIDE ARMCHAIR RECLINER. CALL LIGHT IS IN REACH AND URINAL EMPTIED.
--- NOTE | 2022-04-20 14:15 | NUR ---
THIS RN IN TO SEE PATIENT AND AFTERNOON ASSESSMENT COMPLETE. PATIENT REMAINS UP IN THE BEDSIDE RECLINER AND DENIES NEED FOR PAIN MEDS. ABD PAIN IS 4/10 AND PATIENT IS COMFORTABLE THERE AT THIS TIME. PATIENT DENIES NAUSEA. URINAL EMPTIED. PATIENT DENIES ANY OTHER CARE NEEDS AT THIS TIME. CALL LIGHT IS IN REACH.
--- NOTE | 2022-04-20 14:23 | NUR ---
PT ALERT, ORIENTED AND SITTING IN CHAIR READING. PT IMPROVING, HAD GOOD DISCUSSION REGARDING HIS EXTENDED STAY AT [facility]. EXPRESSED LESSONS LEARNED AND HOW HE FEELS GOD'S PRESENCE. SHARED SOME OF HIS LIFE STORY, STRUGGLE FOR HIS KARLO SINCE HER STROKE. HAD PRAYER, WILL FOLLOW
--- NOTE | 2022-04-20 16:33 | NUR ---
IN TO WRITE ORDERS. TPN TO 1/2 RATE UNTIL FINISHED THEN DC. FERRLECIT TRANSFUSING IN THE BLUE SUBCLAVIAN PORT AFTER MAKING SURE LINE STILL DRAWS BLOOD, WHICH IT DOES. LINE FLUSHED WITH 20MLS NS AND MED STARTED. OTHER 1600 PO MEDS GIVEN. PATIENT DENIES ANY OTHER CARE NEEDS AT THIS TIME. CALL LIGHT IS IN REACH.
--- NOTE | 2022-04-20 17:46 | NUR ---
PT IN BED. VITALS AND I'S AND O'S TAKEN. NO FURTHER NEEDS. CALL LIGHT WITHIN REACH.
--- NOTE | 2022-04-20 18:50 | NUR ---
TPN COMPLETE AND NEW STERILE DRESSING PLACED ON LT SUBCLAVIAN LINE, ALL PORTS FLUSHED WITH 20MLS NS AND CAPPED, MIGUELITO DRAINS AND OSTOMY EMPTIED. PATIENT DENIES ANY OTHER CARE NEEDS AT THIS TIME. CALL LIGHT IS IN REACH.
--- NOTE | 2022-04-20 19:21 | NUR ---
report recieved from Radha MYLES. pt resting in bed, NAD. call light and urinal in reach.
--- NOTE | 2022-04-20 19:45 | NUR ---
URINAL X3 AND OSTOMY BAG EMPTIED. NO OTHER NEEDS AT THIS TIME.
--- NOTE | 2022-04-21 03:04 | NUR ---
URINAL EMPTIED 325ML. OSTOMY BAG EMPTIED 575ML. WHITE BOARD UPDATED.
--- NOTE | 2022-04-21 07:25 | NUR ---
PT LAYING IN BED. PT GIVEN WARM WASH CLOTH FOR FACE. NO FURTHER NEEDS. CALL LIGHT WITHIN REACH.
--- NOTE | 2022-04-21 07:55 | NUR ---
Report received from Cherise MYLES. Pt resting in bed, A+O, states no needs at this time. Call light in reach, will continue plan of care.
--- NOTE | 2022-04-21 08:10 | NUR ---
PT LAYING IN BED. BS TAKEN. PT STATED HE WOULD RAISE HIMSELF UP FOR MEAL IN BED. NO FURTHER NEEDS. CALL LIGHT WITHIN REACH.
--- NOTE | 2022-04-21 09:15 | NUR ---
Scheduled medications administered and assessment complete. Port flushed, brisk blood return noted in all 3 ports, hep locked. Jamir drains WNL X3, incision to midline ION with nichol present, C/D/I, well approximated with no drainage noted at this time. Ostomy WNL. Bowel tones active. Pt reports no pain or needs, made plan for pain medication prior to working with PT
--- NOTE | 2022-04-21 09:29 | NUR ---
PT IN BED. VITALS AND I'S AND O'S DONE. OSOTOMY AND URINAL EMPTIED. NO FURTHER NEEDS. CALL LIGHT WITHIN REACH.
--- NOTE | 2022-04-21 11:00 | NUR ---
Spoke with Wilfrid. Discussed needs on dc and what his plan is. He would like to go home, but is aware he is deconditioned and also will resume caring for his . We discussed SNF placement and he would like to work with PT to see how he does. Also discussed ostomy needs and [facility] supplies, but will not deliver. Pt would need to drive to [place] when supplies are needed or I can check with [facility] to see if they will supply through their DME or [facility]. He would like me to check with [facility] first.
--- NOTE | 2022-04-21 11:15 | NUR ---
Scheduled carafate administered. Pt resting in bed, awaiting physical therapy. Pt states no needs at this time. Reports no pain, no n/v. Call light in reach.
--- NOTE | 2022-04-21 11:49 | NUR ---
PT ALERT, ORIENTED AND BY NATURE REFLECTIVE AND THOUGHTFUL.PT FEELS HE IS GAINING GROUND, IS LOOKING FORWARD TO HAVING HIS KARLO COME LATER TODAY TO VISIT. HAD PRAYER, GAVE ENCOURAGEMENT AND BLESSING. WILL FOLLOW.
--- NOTE | 2022-04-21 13:05 | NUR ---
Rounded on patient, resting in bed after lunch. Pt denies pain, denies needs at this time. Call light in reach.
--- NOTE | 2022-04-21 13:17 | NUR ---
PT LAYING IN BED. VITALS AND I'S AND O'S COMPLETE. OSTOMY BAG EMPTIED. NO FURTHER NEEDS. CALL LIGHT WITHIN REACH.
--- NOTE | 2022-04-21 15:10 | NUR ---
Pt medicated with PRN PO percocet prior to PT. Pt also medicated with PRN zofran per pt request with pain medication. Central line assessed with labor training manager Lindsey and Asuncion MYLES.
--- NOTE | 2022-04-21 16:04 | NUR ---
Attempted to reach Dr Villatoro regarding status of central line. Line is stable at this time and requires no immediate action- Dressing is C/D/I and all 3 lumens flush well and return blood.
--- NOTE | 2022-04-21 16:20 | NUR ---
Called and spoke with Aida at [facility]. They do not have ostomy supplies, but use [facility]. Will fax orders and rx when I receive from Dr. Hernandez.
--- NOTE | 2022-04-21 16:30 | NUR ---
Scheduled medications administered. Pt reports moderate pain after PT, requests titration of percocet, additional tablet provided. Pt also requests PRN phenergan and states that zofran was not effective. Phenergan administered on pump. MACHINE HOOP MAKER HELPER in room, linen change complete. Ice water provided. Central line intact, flushes well and draws back blood. Awaiting return call from Dr Villatoro on status of line.
--- NOTE | 2022-04-21 18:02 | NUR ---
PT IN CHAIR. VITALS AND IS AND OS TAKEN. OSTOMY EMPTIED. NO FURTHER NEEDS. CALL LIGHT WITHIN REACH.
--- NOTE | 2022-04-21 18:15 | NUR ---
Flushed G tube, WNL. Ostomy WNL, incision C/D/I and well approximated with nichol, no drainage noted. Daniella RN in room to start peripheral IV
--- NOTE | 2022-04-21 19:18 | NUR ---
Discussed central line with Dr barker, verbal order received to remove. Report given to Cherise MYLES.
--- NOTE | 2022-04-21 19:22 | NUR ---
Verified with lab that cultures received on MIGUELITO drain. Pending.
--- NOTE | 2022-04-21 19:40 | NUR ---
report recieved from Marissa MYLES, reviewed MIGUELITO drains output. changes in BG schedule, diet and PICC line migration. she took a verbal order to DC PICC line. pt has also c/o of nausea with out emisis today. pt is currently resting with eyes closed NAD.
--- NOTE | 2022-04-21 21:40 | NUR ---
2 PA PER PATIENT'S. BACK TO BED FROM CHAIR. V/S AND I&O'S TAKEN AND CHARTED. ICE WATER REFRESHED.
--- NOTE | 2022-04-21 22:52 | NUR ---
SUBCLAVIAN IV/CL DC'D PER ORDER. INTACT SUTURE/SUTURE SANTIAGO, UNABLE TO PULL IV OUT IT WAS SUTURED IN. ONCE SUTURE REMOVED, IV REMOVED WNL. PRESSURE 5 MIN APPLIED VIA STERILE GUAZE. COVERED WITH NEW STERILE GAUZE AND OPSITE.
--- NOTE | 2022-04-21 23:13 | NUR ---
PT ASSISTED TO BED TWO PERSON SBA WITH WALKER. PT HAD NO LOB WITH AMBULATION. AND WAS ABLE TO STAND TO SIT INDEPENDANTLY, MOD ASSIST WITH FEET TO LAY DOWN. SCD APPLIED COVERS PLACE PT REQIESTED. NO FURTHER NEEDS AT THIS TIME.
--- NOTE | 2022-04-22 01:17 | NUR ---
DRESSING TO LEFT SHOULD WHEN CENTERAL LINE WAS D/C IS CDI.
--- NOTE | 2022-04-22 01:24 | NUR ---
EMPTIED URINAL X3 AND OSTOMY BAG. FRESH ICE WATER REFILLED. WHITE BOARD UPDATED.
--- NOTE | 2022-04-22 05:23 | NUR ---
NEW PERIPHERAL LINE WAS STARTED YESTERDAY DAY SHIFT. LINE IS PATENT AND FLUSHED, DRESSING CDI
--- NOTE | 2022-04-22 06:24 | NUR ---
PTHAD A GOOD NIGHT PER HIS STATMENT. MINAMAL DRAINAGE TO JAP DRAINS. STOMA IS PALE IN COLOR AND NO BUDDING NOTED LEVEL TO ABDOMEN. OSTOMY BAG EMPTIED OF YELLOW MUCHY STOOL. GAS PRESENT IN OSTOMY BAG REQUIRING BURPING OFTEN. pT HAS NO INTREST IN PARTICIPATION IN OSTOMY CARE. ENCOURAGED PT TO ATTEMPT EMPTING OSTOMY AT 2100 LAST NIGHT. PT AMBULATED FROM CHAIR TO BED WITH CGA AND WALKER NO LOB AND WAS ABLE TO DO STAND TO SIT W/O ASSISTANCE. HE DID REQUIRE HELP WITH LEGS TO BED. CPAP IN PLACE THROUGH NIGHT. SCD PLACE AND WORKING WHILE IN BED
--- NOTE | 2022-04-22 07:05 | NUR ---
Report received from Cherise MYLES. Pt resting in bed with CPAP in place. He states no needs, no pain or n/v. IV SL. Call light in reach, will continue plan of care.
--- NOTE | 2022-04-22 07:50 | NUR ---
PT LAYING IN BED. BS TAKEN. URINALS EMPTIED. NO FURTHER NEEDS. CALL LIGHT WITHIN REACH.
--- NOTE | 2022-04-22 09:20 | NUR ---
PT IN BED. VITALS AND IS AND OS DONE. OSOTMY EMPTIED. PT ASSISTED TO CHAIR BY SYLVIA GILLESPIE. PT REFUSED SHOWER TODAY. LINEN CHANGED. NO FURTHER NEEDS. CALL LIGHT WITHIN REACH.
--- NOTE | 2022-04-22 09:30 | NUR ---
Scheduled medications administered and assessment complete. Pt sitting up to chair at this time. Requests PRN pain medication now, prior to physical therapy, prn zofran administered as well per pt request at this time. IV SL. Pt on RA. HRR, lungs clear. bowel tones active. Ostomy patent and good output noted. MIGUELITO drains with scant serous drainage. Incision C/D/I well approx, nichol, BUSINESS ANALYST INTERN.
--- NOTE | 2022-04-22 10:25 | NUR ---
Rounded on patient who is sitting up to chair and states no needs. Ostomy assessed once again, stoma is pink/red and good output noted.
--- NOTE | 2022-04-22 11:00 | NUR ---
Pt is now in agreement for placement to SNF for rehab. Pt has not wanted to work with his ostomy and also is deconditioned. Pt was initially concerned about his not being able to visit. He states his son discussed this and will not be able to visit. Son encouraged dad to focus on himself for rehab and then he will return home and resume care of his . Pt does not want to go to [facility] in [facility]. Pt first choice is [facility] [facility] in [place], [address] [place] [address] and Rehab, and [facility] and rehab. Sent chart to [facility], they do not accept pts insurance. Spoke with [facility] and [facility] and rehab will not have beds available to the middle of next week. Chart sent to [facility] and they will review in the AM. Pt. updated.
--- NOTE | 2022-04-22 11:31 | NUR ---
Sched. carafate administered. Pt states working with PT went well. Made plan for PRN pain medications when available if needed. No needs, call light in reach.
--- NOTE | 2022-04-22 12:02 | NUR ---
1 unit SS insulin provided. Pt sitting up to chair with no needs, lunch delivered. Call light in reach.
--- NOTE | 2022-04-22 13:19 | NUR ---
PT SITTING IN CHAIR. VITALS AND IS AND OS COMPLETE. PT ASSISTED TO BED BY 1 MANAGER GLOBAL COMMUNICATIONS W FWW. NO FURTHER NEEDS. CALL LIGHT WITHIN REACH.
--- NOTE | 2022-04-22 14:04 | NUR ---
CONNECED WITH PT'S KARLO IN LAW BEFORE SHE ENTERED . SHE EXPRESSED TO ME HER CONCERN REGARDING SNF PLACEMENT FOR PT.WBT HAD BEEN THE [facility], DR PRO HAS ANOTHER OPTION SHE WOULD LIKE TO PURSUE IF AT ALL POSSIBLE. SHARED THIS INFO WITH PT'S RN ALISSA. GAVE ENCOURAGEMENT, SHE EXPRESSED HOW PLEASED SHE IS WITH CARE GIVEN TO PT. WILL FOLLOW
--- NOTE | 2022-04-22 14:45 | NUR ---
Rounded on patient, assessment complete. Pt resting in bed. at bedside. Ostomy emptied and stoma assessed, red/pink, good output noted. MIGUELITO drains assessed. Bowel tones active. Dr Hernandez to bedside, all questions answered.
--- NOTE | 2022-04-22 17:44 | NUR ---
Rounded on patient, sitting up to chair eating dinner. He states no pain or nausea at this time. Pt pleasant and conversational with staff.
--- NOTE | 2022-04-22 19:05 | NUR ---
MIGUELITO drains emptied and site care done. G tube flushed WNL. Pt states "had a good day" and states no needs at this time.
--- NOTE | 2022-04-22 21:52 | NUR ---
Pt was moved from chair to bed minimum of assist and FWW. tolerated very wel. back to bed. On room air. uses CPAP at HS, ready at bedside. Lungs clear bilat no cough. abd soft, tender, declined need for pain med. midline incision with nichol upper and mid area edges well aprox, low edges crysty, nichol in place. no redness. L JT patent, 2 MIGUELITO with no drainage at this time. R low abd MIGUELITO with no drainge either. stoma patent draining yellow drainage. uses urinal, draining yellow urine. SL L arm patent. helped repositioning and turned. tolerating liquids well. cooperative. call light and fluids att bedside
--- NOTE | 2022-04-22 21:59 | NUR ---
PATIENT PROVIDED WARM BLANKET. PATIENT IS RESTING IN BED CPAP IN PLACE. NO FURTHER NEEDS NOTED. CALL LIGHT IN REACH.
--- NOTE | 2022-04-22 23:57 | NUR ---
USING CPAP, EYES CLOSED, NO DISTRESS, CALL LIGHT AND FLUIDS AT BEDSIDE
--- NOTE | 2022-04-23 01:29 | NUR ---
resting, using CPAP, no distress, using urinal, voiding small amount of yellow urine. call light and fluidsa t bedside
--- NOTE | 2022-04-23 02:17 | NUR ---
Using CPAP, no s/sx distress, fluid and call light at hands reach. uses urinal. stoma patent. MIGUELITO scant amount of drainage, dressing intact
--- NOTE | 2022-04-23 07:42 | NUR ---
Pt using CPCP, eyes closed, no s/sx distress, took 0700 meds w/o problems, using urinal. call light and fluidsa t bedside
--- NOTE | 2022-04-23 08:30 | NUR ---
REPORT RECEIVED FROM NIGHT RN AND PT. CARE RESUMED. PT. IS ALERT AND ORIENTED. ASSISTED BY 1P AND FWW AMBULATING FROM CHAIR TO BED. TOLERATED WELL. PURULENT MILKY DRAINAGE PRESENT IN LEFT MIGUELITO DRAIN. PT. C/O ABDOMINAL AND BACK PAIN. ADMIN PERCOCET. ABDOMINAL INCISION SITE IS OPEN TO AIR AND CRUSTING, BUT DRY AT THE LOWER PORTION. ASESSMENT COMPLETED. PT. LEFT RESTING WITH CALL LIGHT IN REACH.
--- NOTE | 2022-04-23 08:40 | NUR ---
TOOK PT BS, HAD PT AMBULATE FROM BED TO CHAIR TO SIT UP FOR BREAKFAST. PT AMBULATED WELL AND STATED THAT "THIS IS THE FIRST TIME I HAVE GOTTEN UP W/HARDLY NO PAIN!". PT WAS FEELING GREAT THIS MORNING. HE WAS SET UP FOR BREAKFAST AND A WARM BLANKET GIVEN. CALL LIGHT IN JAZMYN.
--- NOTE | 2022-04-23 10:00 | NUR ---
TECHNICAL INTERN REPORTS OSTOMY BAG IS LEAKING. PT. CLEANED AND NEW OSTOMY APPLIANCE PLACED WITH PT. ASSISTANCE AND TEACHING.
--- NOTE | 2022-04-23 11:00 | NUR ---
Received a message from [facility], they currently have Covid and are not accepting any pts for 2 weeks.
--- NOTE | 2022-04-23 13:00 | NUR ---
Notified by [facility], they will not take this pt due to documentation from PT on the 30 he does not need a SNF. Sent documentation showing PT has daily documented pt needs a SNF and documentation from the showed pt used a walker with a gait belt and required a wc to return to his room. They will not change their minds. Called and spoke with WILLA and Shazia let me know they do not contract with [facility]. I called and spoke with JEFFERSON at [facility] and he states they will not have a bed open until after the .
--- NOTE | 2022-04-23 14:30 | NUR ---
ILEOSTOMY APPLIANCE LEAKING. SKIN AROUND OSTOMY IS SLIGHTLY REDDENED. SKIN CLEANED, SKIN PREP APPLIED AND NEW OSTOMY APPLIANCE PLACED. PT. AMBULATED WITH SBA AND FWW FROM CHAIR TO BED. LEFT RESTING WITH CALL LIGHT IN REACH.
--- NOTE | 2022-04-23 15:34 | NUR ---
INTO ROOM TO COLLECT VITAL SIGNS. PT SITTING IN CHAIR WITH AT BEDSIDE. ALL MIGUELITO TUBES AND ILEOSTOMY EMPTIED AND CHARTED. CLEAN GOWN AND WARM BLANKETS PROVIDED AND PT BRUSHED TEETH INDEPENDENTLY.
--- NOTE | 2022-04-23 15:41 | NUR ---
Contacted all SNFs in our area within an 80 mile radius. They either do not accept pts insurance or are not taking pts. I called [facility] and [facility]. They both needs extensions for admission through the 06 of May. Will discuss this with Dr. Henrandez and PT tomorrow.
--- NOTE | 2022-04-23 16:48 | NUR ---
INTO ROOM TO ASSESS PT BLOOD GLUCOSE. PT RESTING IN BED AND REQUESTING TO MOVE TO CHAIR. WHILE SITTING ON THE SIDE OF THE BED, THE PT WAS ASSISTED WITH EMPTYING HIS ILEOSTOMY BAG, WHICH HE COMPLETED INDEPENDENTLY WITH MINOR ASSISTANCE. PT MOVED TO CHAIR BY ONE PERSON ASSIST. CALL LIGHT IN REACH.
--- NOTE | 2022-04-23 22:22 | NUR ---
PT IN BED, ALERT AND ORIENTED, NO C/O PAIN. REQUESTED MELATONIN FOR INSOMNIA. USES CPAP AT HS, ON ROOM AIR AT THIS TIME. HOME CPAP AT BEDSIDE. PT LUNGS CLEAR T/O. ABD SOFT, TENDER, MIDLINE INCISION WITH ALEXIA. CDI UPPER PORTION, LAST 1.5 IN OF INCISION SLIGHT GAPING AREA. MOIST SS DRAINAGE NOTRED. IT WAS DRYING AND CRUSTY THIS AM. CLEAN GAUZE DRESSING APPLIED. R MIGUELITO DRAINING SCANT AMOUNT OPF MILKY DRAINAGE, OSTOMY WITH SEMISOLID YELLOW DRAINAGE AND FLATUS. EMPTIED. TF DRESSING WITH OLD DRAINAGE PATENT, FLUSED EASILY. 2 MIGUELITO L LOWER ABD WITH MILKY DRAINGE SCANT AMOUNT, DRESSING CLEAN. SL LFA PATENT. COOPERATIV, TOLERATING LIQUIDS WELL, USES URINAL. CALL LIGHT AND FLUIDSA T HANDS REACH. OSTOMY
--- NOTE | 2022-04-24 00:51 | NUR ---
Pt using CPAP at this time, awakes easily, uses urinal, R stoma draining chuncky yellow drainage. all 3 MIGUELITO with milky scant amount of drainage. FT intact. call light and fluids at bedside
--- NOTE | 2022-04-24 04:38 | NUR ---
Pt awakes easily, using CPAP, ostomy emptied, large amount of flatus and mushy yellow bm. MIGUELITO with no changes, scant amount of drainage. uses urinal, fluids and call light at hands reach
--- NOTE | 2022-04-24 06:42 | NUR ---
Pt awakes easily, no c/o pain, takes meds w/o problems. using CPAP, coop with vitals. stoma patent, 3xJP with milky drainage. scant amount. TF patent, flushes easily. midline incision with nichol healing, lower end was moist earlier on shift, dry at this time. abd soft, denies c/o pain.
--- NOTE | 2022-04-24 08:30 | NUR ---
THIS MORNING CAME IN TO PATIENT'S ROOM. BEFORE GETTING HIM OUT OF BED CHANGED THE LINENS ON HIS CHAIR. THAN WE WALKED OVER TO HIS CHAIR. PATIENT SCOOTED BACK. THAN BEFORE HIS BREAKFAST CAME HE WASHED HIS FACE AND BRUSHED HIS TEETH. ALSO CHANGED HIS BED LINENS.
--- NOTE | 2022-04-24 10:30 | NUR ---
AFTER VITALS WERE DONE PATIENT WANTED TO PRACTICE ON EMPTY HIS OWN OSTOMY BAG. THERE WASN'T ANYTHING IN THERE AT THE TIME. HE DID GOOD.
--- NOTE | 2022-04-24 10:39 | NUR ---
PT ALERT, ORIENTED AND SITTING UP IN BED. STATED HE HAD A GOOD NIGHTS SLEEP. ANTICIPATING A FULL DAY WITH A SHOWER THAT HE WAS LOOKING FORWARD TO, AND A SESSION WITH [employer]. GAVE ENCOURAGEMENT AND BLESSING. WILL FOLLOW NEEDED
--- NOTE | 2022-04-24 13:30 | NUR ---
In and spoke with pt. Updated I have not been able to find placement for him at this time. I spoke with UR and insurance has authed for pt to remain until next Wednesday. Pt has started to attempt to work with his ostomy and is agreeable to work with PT over the holiday weekend. CM will reassess on . Pt stating at this point he has not been able to get himself out of the chair. He is will to work through the weekend. I spoke with Dr. Hernandez and HH is ordered and they could get in May 04-. Chart has been faxed and he is on their list. Their is a possibility they could see pt sooner, if there are cancellations.
--- NOTE | 2022-04-24 14:04 | NUR ---
AFTER VITALS PATIENT EMPTIED OUT HIS OWN OSTOMY BAG. AND CLEANED IT. I HELD THE GRATUATE. HE WAS SO PROUD.
--- NOTE | 2022-04-24 14:48 | NUR ---
ROUNDING ON PT. HE IS GETTING A BED BATH WITH ROBOTICS SOFTWARE ENGINEER AND IN THE ROOM. MIGUELITO DRAINS HAVE SLOWED WITH OUTPUT. MIDLINE INCISION DRY AND ALEXIA INTACT. PT. DENIES FURTHER NEEDS. LEFT RESTING WITH CALL LIGHT IN REACH.
--- NOTE | 2022-04-24 15:24 | NUR ---
PATIENT HAD A BEDBATH. PATIENT WASHED HIS ARMS AND THE TOP HALF OF HIS BODY. AND A LITTLE BIT OF HIS STOMACH. I WASHED HIS LEGS AND HIS FEET AND HIS BACK. PUT LOTION ON HIS FEET,LEGS.AND BACK.
--- NOTE | 2022-04-24 15:36 | NUR ---
REPORT RECEIVED FROM SHAR ZIMMER. THIS RN ASSUMING CARE OF PT FOR REMAINDER OF SHIFT. PT REMAINS UP TO CHAIR, VISITING WITH HIS . PT DENIES PAIN AND NAUSEA. MIGUELITO DRAINS WNL, WITH VERY MINMAL DRAINAGE, DRAIN #2 CONTINUES TO HAVE CLOUDY FLUID. MIDLINE INCISION INTACT WITH EDGES WELL APROXIMATED. ALEXIA IN PLACE. CAUDAL 2 CM OF INCISION MORE RED BUT WNL. OLD RED DRY DRAINAGED NOTED AROUND MIDLINE INCISION. OSTOMY REMAINS WNL, PINK STOMA NOTED. BROWN CHUNKY STOOL NOTED IN OSTOMY BAG. OLD DRESSING OVER OLD CENTRAL LINE SITE REMOVED. SITE WNL. PT DENIES ADDITIONAL REQUESTS OR COMPLAINTS. CALL LIGHT WITHIN REACH.
--- NOTE | 2022-04-24 16:10 | NUR ---
MEDICATION DUE. THIS RN TO ROOM. PT TALKING ON PHONE. MEDICATION GIVEN. PT DENIES ADDITIONAL REQUESTS OR COMPLAINTS. CALL LIGHT WITHIN REACH.
--- NOTE | 2022-04-24 16:40 | NUR ---
Call from Shira at [facility]. Pts insurance will require at 30% copay at each visit. At this time pt has not met his deductible. I don't think this will be an issue at pt has been hospitalized 25 days. Will update pt. Pt updated and he will call his insurance on Wednesday.
--- NOTE | 2022-04-24 17:05 | NUR ---
THIS RN TO ROOM TO CHECK ON PT. PT REMAINS UP TO CHAIR, READING MAGAZINE. PT DENIES PAIN OR NAUSEA. PT REQUEST ASSISTANCE EMPTYING OSTOMY BAG. STAND BY ASSISTANCE PROVIDED PT EMPTIES OSTOMY BAG HIMSELF. 250ML SOFT LIGHT BROWN STOOL REMOVED. PT CLEANS OPENING AND SEALS BAG CORRECTLY. PT DENIES ADDITIONAL REQUESTS OR COMPLAINTS. DINNER DELIVERED. CALL LIGHT WITHIN REACH. BED RAILS UP.
--- NOTE | 2022-04-24 17:34 | NUR ---
PT HERE FOR SEVER SEPSIS. POST OP DAY 11 AFTER SUBTOTAL COLECTOMY AND INTERNAL ABCESS. PT UP WITH STAND BY ASSIST AND FRONT WHEEL WALKER. PT TOLERATING REGULAR DIET WITH GOOD APPITITE. PT ORIENTED THROUGH THIS RN'S TIME WITH PT. PT DEMONSTRATES UNDERSTANDING OF HOW TO EMPTY OSTOMY BAG THIS SHIFT. MIGUELITO DRAINS SHOWING MINMAL SEROUSANGUINOUS DRAINAGE IN DRAIN 1 AND 3 AND SMALL AMOUNTS OF CLOUDY DRAINAGE IN DRAIN #2. MIDLINE INCISION WNL WITH EDGES WELL APROXIMATED AND ALEXIA IN PLACED. OLD DRY RED DRAINAGE REMAINS. ALLEVYN TO COCCYX. BLOOD SUGAR CHECKS PERFORMED WITH SLIDING SCALE INSULIN GIVEN. PRN PAIN MEDICATION GIVEN PRIOR TO ACTIVITY. PT VOIDING QUANTITY SUFFICIENT. PT USES CALL LIGHT AND MAKES NEEDS KNOWN.
--- NOTE | 2022-04-24 18:20 | NUR ---
THIS RN TO ROOM TO CHECK ON PT. PT REQUESTS ASSISTANCE BACK TO BED. STAND BY ASSIST WITH FRONT WHEEL WALKER BACK TO BED. PT ABLE TO POSITION SELF IN BED WITH NO ASSISTANCE. PT DENIES PAIN AND NAUSEA. GOWN CHANGED PER PT REQUEST. BELONGINGS WITHIN REACH. ICE WATER REFILLED. NO ADDITIONAL REQUESTS OR COMPLAINTS. CALL LIGHT WITHIN REACH. BED RAILS UP.
--- NOTE | 2022-04-24 21:05 | NUR ---
VS AND I&O'S COLLECTED. pt AWAKE AND RESTING IN BED. pt INTERACTIVE WITH STAFF AND VERBALIZES KNOWLEDGE IN EMPTING OSTOMY BAG. NO ADDITIONAL NEEDS, MIGUELITO DRAINS X3 WITH SCANT OUTPUT, WILL MONITOR AND EMPTY PRN. NO ADDITIONAL NEEDS, CALL LIGHT IN REACH.
--- NOTE | 2022-04-24 23:35 | NUR ---
IN TO ASSIST PT WITH SCDS, URINAL AND OSTOMY CHECKED, NO FURTHER NEEDS AT THIS TIME
--- NOTE | 2022-04-25 00:48 | NUR ---
PT HAS HIS CPAP ON. WATER WAS RENEWED IN IT. PT IS RESTING VERY COMFORTABLY.
--- NOTE | 2022-04-25 07:10 | NUR ---
REPORT RECEIVED FROM SHAR WARNER. PT RESTING IN BED ON BACK IN SEMI FLOWLER POSITION, HEAD OF BED ELEVATED TO 20 DEGREES. RESPIRATION EVEN AND UNLABORED. PT ALLOWED TO REST. CALL LIGHT WIHTIN REACH. BED RAILS UP.
--- NOTE | 2022-04-25 09:12 | NUR ---
MORNING ASSESSMENT AND MEDICATION DUE. PT UP TO CHAIR EATING BREAKFAST. PT ALERT AND ORINETED TO ALL. PT REPORTS 6/10 PAIN IN ABDOMEN AND REQUESTS PAIN MEDICATIONS "ESPICALLY BEFORE I GET UP WITH PHYSICAL THERAPY." SEE MAR FOR MEDICATION GIVEN. IV ALREADY IN PLACE TO LEFT FORARM, WNL, NO S/S OF PHLEBITIS NOTED. UNKNONW IV STRAT TIME OR PERSON, IV FELL OUT OF ASSESSMENT DOCCUMENTATION AND IS PUT INTO CHART AT THIS TIME. STRONG PLANTAR AND DORSI FLEXTION NOTED. PT MOVING WITH STAND BY ASSIST AND FWW. LUGN SOUNDS CLEAR. DEMINISHED IN LOWER LOBES. OCCATIONAL COUGH WITH SCAN AMOUTN OF CLEAR SPUTUM. PT TOLERATING ROOM AIR WITH OXYGEN SATURATIONS ABOVE 94%. HEART TONES REGULAR. STRONG PERIPHERAL PULSES NOTED. NO EDEMA NOTED. BOWEL TONES ACTIVE. OSTOMY WNK WITH PINK STOMA NOTED. LIGHT BROWN LOOSE STOOL NOTED IN OSTOMY BAG. MIDLINE INCISION INTACT WITH EDGES WELL APROXIMATED BUT FOR CAUDAL 1.5 CM OF INCISION. THIS 1.5CM OF INCISION IS LEAKING MILKY FLUID IN SMALL AMOUNTS. ALEXIA INTACT, OLD DRY RED DRAINAGE NOTED AROUND INCISION SITE. MILD ERYTHEMA NOTED AROUND INCISION. PEG TUBE WNL, REMAINS CLAMPED AT THIS TIME. PT TOELRATING PO INTAKE. MIGUELITO DRAINS X3 INPLACE, WNL. DRAINS #1 AND 3 DRAINAING SCANT AMOUNT OF SEROUS TO SEROUS ANGUINOUS DRAINAGE. DRAIN #2 DRAINAING SMALL AMOUNTS OF CLOUDY FLUID. PT REMAINS UP TO CHAIR. I.S. USE DEMONSTRATED WITH PT REACHIGN 2000ML X5. PT DENEIS ADDITIONAL REQUESTS OR COMPLAINTS. CALL LIGHT WITHIN REACH. BED RAILS UP.
--- NOTE | 2022-04-25 10:56 | NUR ---
PT RETURNED FROM WORKING WITH PHYSICAL THERAPY. PT REPORTS 9/10 PAIN WITH AMBULATION THAT QUICKLY DECREASES ONCE HE IS RESTING AGAIN. PT REPORTS HE WAS ABLE TO AMBULATE X1 LAP ARROUND UNIT WITH STAND BY ASSIST AND FWW. GATE BELT USED FOR SAFETY. PT ALSO ABLE TO GO UP STAIRS WITH PHYSICAL THERAPY X2. PT HAS A VERY POSTIIVE ATTITIE STATING HE WANTS TO KEEP WORKING THROUGH THE PAIN AND THAT "IT ALL ADDS UP TOGETHER, BEING WEAK, BEING OUT OF BALANCE, AND THE PAIN ON TOP." DR. PRO UPDATED ON PT STATUS, ASSESSMENT AND PARTICULARLY THE DRAINAGE FROM CAUDAL END OF MIDLINE INCISION. NO NEW ORDERS AT THIS TIME. PT UP TO CHAIR. ICE PACK FOR ABDOMEN AND WARM BLANKET PROVIDED. PT RPEORTS PAIN IS "GETTING BETTER." PT REPORTS PAIN WAS 7/10 BEFORE AMBULATION. PT REPORTS PERCOCET "SEEMED TO HELP MORE YESTERDAY." PT REPORTS ONGOING 9/10 PAIN AT THIS TIME. WILL CONTINUE TO MONITOR. PT DENIES ADDITIONAL REQUESTS OR COMPLAINTS. CALL LIGHT WITHIN REACH.
--- NOTE | 2022-04-25 11:26 | NUR ---
BEFORE PATIENT GOT UP FROM HIS BED TO SIT IN HIS CHAIR. HE EMPTIED HIS OSTOMOMY BAG FIRST.
--- NOTE | 2022-04-25 11:28 | NUR ---
AFTER HIS VITALS WERE DONE PATIENT BRUSHED HIS TEETH AND WASHED HIS FACE. THAN HE EMPTIED HIS OSTOMY BAG. PATIENT WORE GLOVES.
--- NOTE | 2022-04-25 12:00 | NUR ---
this rn to room to check on pt. PT REMAINS UP TO CHAIR. PT REPORTS PAIN CONTINUES AT 8/10 "BUT THERE IS LESS JABBING, ITS MORE FLAT." ICE PACK REMAINS IN PLACE OVER ABDOMEN. PT DENIES NEED FOR ADDITIONAL PAIN INTERVENTIONS. PT REPORTS MILDY NAUSEA. SEE MAR FOR MEDICATION GIVEN. BLOOD SUGAR CHEKED, INSULIN GIVEN. PT DENIEDS ADDIITONAL REQUESTS OR COMPLAINTS. CALL LIGHT WITHIN REACH.
--- NOTE | 2022-04-25 13:01 | NUR ---
THIS RN TO ROOM TO CHECK ON PT. PT RESTING IN CHAIR, FINISHED WITH LUNCH. PT STATES PAIN IS "SUBSIDING" NOW AT 7/10. PT REPORTS NAUSEA HAS RESOLVED. PT WAS ABLE TO EAT 100% ON LUNCH. NO ADDITIONAL REQUESTS OR COMPLAINTS. CALL LIGHT WITHIN REACH.
--- NOTE | 2022-04-25 14:52 | NUR ---
AFTERNOON ASSESSMENT DUE. PT UP TO CHAIR VISITING WITH HIS . PT REPORTS PAIN IS "MUCH IMPROVED." PT REPORTS 4/10 PAIN IN RIGHT ABDOMEN AT THIS TIME. PT DECLINES OFFER OF PAIN MEDICATION. FRESH ICE PACK PROVIDED. PT ALERT AND ORINETED TO ALL. LUNG SOUNDS CLEAR. HEAR TONES REGULAR. NO COUGH NOTED. STRONG PERIPHERAL PULSES NTOED. +1 EDEMA NOTED IN BILATERAL FEET. ABDOMEN SOFT ON LEFT SIDE BUT FIRM ON RIGHT SIDE. PT REPORTS RIGHT SIDE IS ALSO MORE TENDER. BOWEL TONES HEARD. LIGHT BROWN STOOL NOTED IN OSTOMY BAG, WNL. PINK STOMA NOTED. PEG TUBE REMAINS CLAMPED, WNL. YELLOW/MEHRAN DRAINAGE NOTED AROUND PEG TUBE INCERTION SITE. AREA CLEANED WITH WATER, NEW GAUZE PLACED. MIDLINE INCISION UNCHANGED. OLD DRY RED DRAINAGE REMAINES ARROUND INCISION. CAUDAL END LEAKING SMALL AMOUTNS OF MEHRAN TO RED FLUID. CAUDAL END OF INCISION NOT WELL APROXIMATED FOR ~1.5 CMS. THE REMAINDER OF ABDOMINAL INCISION REMAINS WELL APROXIMATED AND WNL. MIGUELITO DRAINS 1 AND 3 DRAINING SEROUS FLUIDS IN SCANT AMOUNTS. MIGUELITO DRAIN 2 DRAINING MEHRAN FLUID IN SMALL AMOUNTS, MD AWARE. PT DEMONSTRATES USE OF I.S. REACHIGN 2000ML X5. PT DENIES ADDITONAL REQUESTS OR COMPLAINTS. ICE WATER REFILLED. CALL LIGHT WITHIN REACH.
--- NOTE | 2022-04-25 16:11 | NUR ---
THIS RN TO ROOM TO CHECK ON PT. PT VISITING WITH HIS . PT REPORTS 4/10 ABDOMINAL PAIN CONTINUES STATING "WELL IT'S JUST LIFE PAINS." PT DECLINES PAIN MEDICATION. FRESH ICE PACKS PROVIDED. MEDICATION GIVEN. PT DENIES ADDITIONAL REQUESTS OR COMPLAINTS. CALL LIGHT WITHIN REACH.
--- NOTE | 2022-04-25 17:45 | NUR ---
THIS RN TO ROOM TO CHECK ON PT. PT UP TO CHAIR, EATING DINNER. PT REQUESTS A WARM BLANKET. PT REPORTS PAIN CONTINUES AT 4/10 IN ABDOMEN. PT DENIES NEED FOR PAIN MEDICATION. NO ADDITIONAL REQUESTS OR COMPLAINTS. NO INSULIN NEEDED. CALL LIGHT WITHIN REACH.
--- NOTE | 2022-04-25 18:18 | NUR ---
PT HRE FOR SEVERE SEPSIS AND POST OP DAY 12 AFTER MULTIPLE PROCEEDURES. PT UP WITH STAND BY ASSIST AND FWW FOR PHYSICAL THERAPY, TO CHAIR, AND ARROUND ROOM THIS SHIFT. PT TOLERATING REGULAR DIET WITH GOOD APPITITE. BOWEL TONES ACTIVE. LIGHT BROWN STOOL NOTED IN OSTOMY BAG, WITH PINK STOMA PEG TUBE CLAMPED THROGHOUT SHIFT. MIDLINE INCISION CONTINUES TO SHOW OLD DRY RED DRAINAGE WITH CAUDAL END LEAKING SMALL AMOUTNS OF MILKY TO RED FLUID. CAUDAL END OF INCISION NOT WELL APROXIMATED FOR ~1.5 CMS. THE REMAINDER OF ABDOMINAL INCISION REMAINS WELL APROXIMATED WITH ALEXIA INTACT. MIGUELITO DRAINS 1 AND 3 DRAINING SEROUS FLUIDS IN SCANT AMOUNTS. MIGUELITO DRAIN 2 DRAINING MEHRAN FLUID IN SMALL AMOUNTS, MD AWARE. PT MORE PAINFUL THIS SHIFT ESPICIALLY AFTER ACTIVITY, PRN PAIN MEDCATION GIVEN. PAIN IMPROVES WITH REST AND ICE PACKS. BLOOD SUGAR CHECKS WITH SLIDING SCALE INSULIN. PT VODING QUANTITY SUFFICENT. PT USES CALL LIGHT AND MAKES NEEDS KNOWN.
--- NOTE | 2022-04-25 18:45 | NUR ---
THIS RN TO ROOM TO CHECK ON PT. PT REMAINS UP TO CHAIR. PT REPORTS HE IS READY TO GET BACK TO BED. VITAL SIGNS STABLE. PT EMPIES HIS OWN OSTOMY BAG, MINIMAL STAND BY ASSISTANCE NEEDED. PT REPORTS 6/10 PAIN IN ABDOMEN, AFTER MOVING BACK TO BED. PT DECLINES PAIN MEDICATION STATING "IT WILL CALM DOWN." PT DENIES NAUSEA. WARM BLANKETS PROVIDED. PT DENIES ADDITIONAL REQUESTS OR COMPLAINTS. CALL LIGHT WIHTIN REACH. PERSONAL BELONGINGS WITHIN REACH.
--- NOTE | 2022-04-25 19:10 | NUR ---
SHIFT REPORT TAKEN.PT IS AWAKE AND ALERT. HE STATES HE HAD A GOOD DAY, AMBULATED IN THE LAW. CALLL LIGHT IN REACH.
--- NOTE | 2022-04-25 21:50 | NUR ---
PT ACCIDENTALLY MISSED HIS URINAL WHILE IN BED. BED AND GOWN WERE WET. PT'S GOWN WAS CHANGED AND HIS SKIN WAS CLEANED. ENTIRE BED LINEN WAS CHANGED PT STOOD AT THE BEDSIDE. HE WAS GIVEN HIS HS MELATONIN, PUT ON HIS CPAP AND HAD THE LIGHTS TURNED OUT.
--- NOTE | 2022-04-26 02:14 | NUR ---
EMPTIED PT'S URINAL FROM BEDSIDE TABLE. 200 MLS LIGHT YELLOW URINE. PT HAS HIS CPAP ON AND EYES CLOSED.
--- NOTE | 2022-04-26 06:31 | NUR ---
PT STATES HE SLEPT WELL LAST NIGHT. HAS BEEN SLEEPING BETTER RECENTLY, AND SAYS HE FEELS BETTER. PT TOOK HIS AM MEDS ONE AT A TIME. SAYS HE IS GOING TO SLEEP A LITTLE LONGER.
--- NOTE | 2022-04-26 07:14 | NUR ---
REPORT RECEIVED FROM SHAR WARNER. PT RESTING IN BED WITH CPAP IN PLACE. PT DENIES REQUESTS OR COMPLAINTS. STATES PAIN IS WELL CONTROLLED AT THIS TIME. CALL LIGHT WITHIN REACH. BED RAILS UP.
--- NOTE | 2022-04-26 09:23 | NUR ---
MORNING ASSESSMENT AND MEDICATION DUE. PT UP TO CHAIR, FINISHED WITH BREAKFAST. PT REPORTS 6/10 PAIN IN ABDOMEN AND REQUESTS PAIN MEDICATION, SEE MAR FOR MEDICAITON (GIVEN BY AMA). PT ALSO REPROTS "JUST A LITTLE" NAUSEA AFTER EATING BREAKFAST, PT REQUESTS PAIN MEDICAITON, SEE MAR FOR MEDICATIONGIVEN. PT ALERT AND ORIENTED TO ALL. PT REPORTS HE HAD A GOOD NIGHTS SLEEP BUT IS FEELING "ABOUT THE SAME" TODAY COMPARED TO YESTERDAY. LUNG SOUNDS CLEAR. HEART TONES REGULAR. +1 PITTING EDEMA REMAINS TO BILAERAL FEET. GENERALZIED MINOR SCTORAL EDEMA. NO EDMA NOTED IN BLE OR BUE. RIGHT SIDE OF ABDOMEN REMAINS FIRM COMPARED TO LEFT SIDE. PT REPORTS THE PAIN IS "A LITTLE"MORE INTENSE ON RIGHT SIDE COMPARED TO LEFT. BOWEL TONES ACTIVE. OSTOMY BAG WNL WITH PINK STOMA AND LIGHT BROWN SOFT STOOL. PEG TUBE WNL, NO DRAINAGED NOTED. FLUSHED WITH 120ML TAP WATER. PT TOELARTED WELL WITHOUT INCREASE IN NASUEA. PEG TUBE REMAINS CLAMPED. MIGUELITO DRAINS 1 AND 3 CONTINUE TO SHOW SCAN SEROUS DRAINAGE, MIGUELITO DRAIN 3 SHOWS SMALL AMOUNTS OF MILKY FULID. MIDLINE INCISION SHOWS EDGES WELL APROXIMATED WITH OLD DRY RED DRAINAGE UNTIL LAST 1.5CM OF INCISION WHERE EDGES ARE LESS APROXIAMTED AND SMALL AMOUNTS OF MILKY RED FULID IS LEAKING FROM INCISION. MD AWARE. PT DEMONSTRATES USE OF I.S. X3 REACHIGN 1750ML. PT DENIES ADDITIONAL REQUESTS OR COMPLAINTS. CALL LIGHT WITHIN REACH. PT READING BOOK.
--- NOTE | 2022-04-26 10:05 | NUR ---
HOURLY ROUNDING: PT UP WITH PHYSICAL THERAPY, WORKING ON STAIRS. PT REPORTS PAIN IS 10/10 WITH ACTIVITY "THE SAME YESTEDAY." PT DENIES NEED FOR ADDITIONAL INTERVENTIONS. PT ENCORUAGED TO CALL WHEN HE RETURNS TO HIS ROOM AND AN ICE PACK OR ADDITIONAL INTERVENTIONS CAN BE PROVIDED.
--- NOTE | 2022-04-26 10:09 | NUR ---
PATIENT CURRENTLY WORKING WITH THERAPY. WILL COME BACK OT DO VITALS. CALL LIGHT IN REACH.
--- NOTE | 2022-04-26 10:57 | NUR ---
PT CALL LIGHT ON. PT FINISHED WITH PHYSICAL THERAPY. PT REPORTS THE NEED TO VOID BUT STATES HE IS HAVING TROUBLE VOIDING. PT UP TO STAND WITH FWW AND IS ABLE TO VOID 125ML INTO URINAL. PT REPORTS ABDOMENAL PAIN CONTINUES AT 9/10 AFTER PHYSICAL THERAPY, ICE PACK PROVIDED. PT DECLINES ADDITONAL PAIN INTERVENTIONS STATING "IT WILL GET BETTER WITH A LITTLE TIME." ICE WATER REFILLED. STAND BY ASSIST WHILE OSTOMY BAG IS EMPTIED BY PT. PT DEMONSTRATES CORRECT UNDERSTANDING OF OSTOMY BAG CARE. PT ALSO VERBALIZES UNDERSTANDING OF WHEN TO CHANGE OSTOMY BAG. PT DENIES ADDITONAL REQUESTS OR COMPLAINTS. ICE WATER REFILLED. WARM BLANEKET PROVIDED. CALL LIGHT WITHIN REACH.
--- NOTE | 2022-04-26 12:01 | NUR ---
INSULIN DUE. THIS RN TO ROOM. PT WORKING ON PUZZLES ON [employer]. PT REPORTS PAIN HAS IMPROVED NOW AT 6/10 TO ABOMDEN. PT REPORTS HIS "TALE BONE IS ACHING." PT ASSISTED WITH REPOSITIONING. INSULIN GIVEN. LUNCH DELIVERED. PT DENIES ADDITIONAL REQUESTS OR COMPLAINTS. DR. PRO UPDATED ON PT STATUS AND ASSESSMENT. NO NEW ORDERS AT THIS TIME. CALL LIGHT WITHIN REACH.
--- NOTE | 2022-04-26 13:06 | NUR ---
HOURLY ROUNDING: THIS RN TO ROOM TO CHECK ON PT. PT UP TO CHAIR, FINISHING LUNCH. PT REPORTS SHE WAS ABLE TO EAT "ALL OF IT." PT REPORTS PAIN CONTINUES TO IMPROVE NOW AT 5/10 TO ABDOMEN. PT STATES ICE PACK IS HELPING. PT DENIES ADDITONAL REQUESTS OR COMPLAINTS AT THIS TIME. CALL LIGHT FEMI THIBODEAUX.
--- NOTE | 2022-04-26 14:21 | NUR ---
AFTERNOON ASSESSMENT DUE. PT UP TO CHAIR, VISITING WITH HIS . PT REPORTS ABDOMINAL PAIN CONTINUES AT 11/30, ICE PACK IN PLACE, PT DENIES NEED FOR ADDITIONAL PAIN MEDICAITON. PT REPORTS SORENESS TO "BACKSIDE" AT 410. PT UP TO STAND WITH STAND BY ASSIST AND FWW. ALLEVY TO COCCYX REMOVED. SKIN COMPLETELY INTACT, NO REDNESS NOTED. FRESH ALLEVYN APPLIED. ICE PACK ALSO IN PLACE TO BACK WHICH PT STATES "HELPS." PT REMAINS ALERT AND OREINTED TO ALL. PT REPORTS GENERAZLIED WEAKNESS CONTINUES BUT PT REPORTS STRENGTH IS IMPROVING. LUNG SOUNDS CLEAR. HEART TONES REGULAR. TRACE EDEMA NOTED IN FEET, MUCH IMPROVED, SMALLER SOCKS PROVIDED. ABDOMEN SOFT, ESPICIALLY ON LEFT SIDE, MORE FIRM ON RIGHT SIDE. BOWEL TONES ACIVE. PT DENIES NASUEA. OSTOMY BAG WNL WITH LIGHT BROWN TO YELLOW SOFT STOOL NOTED. PEG TUBE REMAINS CLAMPED, WNL. NO DRAINGE NOTED. MIGUELITO DRAINS UNCHANGED WITH SMALL AMOUNT OF MILKY FLUID NOTED IN JPE DRAIN #2 AND SCANT SEROUS FLUID NOTED IN #1 AND #3. MIDLINE INCISION WNL THROUGH MOST OF INCISION. CAUDAL 1.5 CM REMAINS LESS APPROXIMATED AND LEAKING MILKY RED FLUID IN SMALL AMOUNTS. REMAINDER OF INCISION C/D/I WITH EDGES WELL APROXIMATED. SMALL AMOUNTS OF OLD DRY RED DRAINAGE NOTED AROUND INCISION. +2 DEPENDANT EDMA NOTED ON RIGHT SIDE OF ABDOMEN. DR. PRO TO BEDSIDE FOR ROUNDS. PT AND SPOUSE UPDATED ON PLAN OF CARE. NO ADDITONAL NEEDS AT THIS TIME. CALL LIGHT WITHIN REACH.
--- NOTE | 2022-04-26 14:42 | NUR ---
PATIENT SITTING IN CHAIR VISITING WITH SPOUSE. VITALS AND I/O'S COMPLETED. OSTOMY EMPTIED AND DOCUMENTED. THIS AUTOMOTIVE ELECTRICIAN WILL RETURN LATER FOR SHOWER. CALL LIGHT WITHIN REACH.
--- NOTE | 2022-04-26 15:23 | NUR ---
Alerted by FUEL INJECTION SERVICER that patient ostomy leaking. Noted to be leaking from bottom of dressing, not bag. New ostomy appliance placed, trimmed to 44mm. Skin care/barrier care complete. Patient and ask many questions and observe this RN replacing appliance. New MIGUELITO drain dressing applied. New gown and chux. Pt has no further needs at this time.
--- NOTE | 2022-04-26 16:21 | NUR ---
THIS RN TO ROOM TO CHECK ON PT. PT FINISHED WITH SHOWER AND UP TO CHAIR. PT REPORTS 9/10 PAIN AFTER SHOWER BUT ALSO STATES "TAKING A SHOWER LAST WEEK WAS REALLY A CHORE, TODAY IT WENT JUST FINE." PT DESCRIBES HOW MUCH EASIER IT WAS TO SHOWER TO DAY AND HOW GOOD HE IS FEELING OVER ALL. MEDICATION GIVEN. PT REQUESTS PAIN MEDICATION (SEE MAR FOR MEDICATION GIVEN). MIDLINE INCISION WNL WITH EDGES WELL APROXIMATED BUT FOR LAST 1.5 CM PER PREVIOUS ASSESSMENT. GAUZE REMOVED DURING SHOWER THAT WAS ARROUNG MIGUELITO DRAIN INCERTION SITE. SITES REMAIN WNL WITH MILD ERYTHEMA, NO DRAINAGE NOTED. OSTOMY BAG WELLINTACT. PT DEMONSRATES USE OF I.S. REACHIGN 1900 X5. PT DENIES ADDITONAL REQUESTS OR COMPLAINTS. CALL LIGHT WITHIN REACH. BED RAIS UP.
--- NOTE | 2022-04-26 17:01 | NUR ---
THIS RN TO ROOM TO CHECK ON PT. PT UP TO CHAIR, EATING DINNER, NO INSULIN NEEDED. PT REPORTS ABDOMINAL PAIN IS IMPROVING NOW AT 7/10. PT DENIES NEED FOR ADDITIONAL PAIN MEDICATION. PT DENEIS ADDITIONAL REQUESTS OR COMPLAINTS. CALL LIGHT WITHIN REACH.
--- NOTE | 2022-04-26 18:22 | NUR ---
THIS RN TO ROOM TO CHECK ON PT. PT REMAINS UP TO CHAIR. PT FINISHED WITH DINNER. PT REPORTS 5/10 "NOT MUCH" PAIN IN ABDOMEN. PT DENIES NEED FOR PAIN MEDICATION AT THIS TIME. PT DEMONSTARTES EMPTYING OF OSTOMY BAG WITH STAND BY ASSIST. 10M CLOUDY SEROUS FLUID REMOVED FROM MIGUELITO DRAIN #1, 5ML SEROUS FLUID REMOVED FROM DRAIN #3, 20 ML MILKY FLUID REMOVED FROM MIGUELITO DRAIN #2. MIDLINE INCISION UNCHANGED. STAND BY ASSIST WITH FWW BACK TO BED. VITAL SIGNS STABLE. NO ADDITONAL REQUESTS OR COMPLAINTS. CALL LIGHT WITHIN REACH. BED RAILS UP.
--- NOTE | 2022-04-26 18:39 | NUR ---
PATIENT IN BED AFTER MEAL. VITALS AND I/O'S COMPLETED. HAS NO OTHER NEEDS AT THIS TIME. CALL LIGHT WITHIN REACH.
--- NOTE | 2022-04-26 18:48 | NUR ---
PT POST OP DAY 13 AFTER MULTIPLE PROCEEDURES. PT UP WITH STAND BY ASSIST AND FWW THIS SHIFT. PT TOLERATING REGULAR DIET WITH GOOD APPITITE. BLOOD SUGAR CHECKS AC, HS, WITH SLINDING SCALE INSLUIN. BOWEL TONES ACTIVE. LIGHT BROWN STOOL NOTED IN OSTOMY BAG, WITH PINK STOMA. PT DEMONSRATES CORRECT EMPTYING OF OSTOMY BAG. PEG TUBE CLAMPED THROGHOUT SHIFT. MIDLINE INCISION CONTINUES TO SHOW OLD DRY RED DRAINAGE WITH CAUDAL END LEAKING SMALL AMOUTNS OF MILKY TO RED FLUID. CAUDAL END OF INCISION NOT WELL APROXIMATED FOR ~1.5 CMS. THE REMAINDER OF ABDOMINAL INCISION REMAINS WELL APROXIMATED WITH ALEXIA INTACT. MIGUELITO DRAINS 1 AND 3 DRAINING SEROUS FLUIDS IN SCANT AMOUNTS. MIGUELITO DRAIN 2 DRAINING MEHRAN FLUID IN SMALL AMOUNTS, AWARE. PRN PAIN MEDICATION GIVEN THIS SHIFT PRIRO TO PHYSICAL THERAPY AND THIS EVENING, WITH GOOD RESULTS. ALLEVYN TO COCCYX CHANGED, NO REDNESS OR SKIN BREAK DOWN NOTED. PT VOIDING QUANITTY SUFFICIENT. PT USES CALL LIGHT AND MAKES NEEDS KNOWN.
--- NOTE | 2022-04-26 20:00 | NUR ---
Patient in bed resting. Rates pain 4/10. Denies pain meds at this time. Denies any needs. Call light within reach.
--- NOTE | 2022-04-27 01:46 | NUR ---
Patient sleeping in bed. Call light within reach.
--- NOTE | 2022-04-27 04:55 | NUR ---
Uneventful shift. Patient alert and oriented. Calls appropriately. On RA. Lung sounds clear bilat. Respirs unlabored. HR sounds reg. +1 edema BLE. Bowel sounds active. Stoma putting out appropriate amount of soft stool. Stoma beefy red. Patient emptying own bag. Has remained in bed. Surg site open to air. Small amount of drainage at lower aspect of wound. MIGUELITO's putting out very scant amount of fluid. Voiding appropriately.
--- NOTE | 2022-04-27 07:15 | NUR ---
REPORT RECEIVED FROM SHAR FRANCE. PT RESTING IN BED, AWAKE AND ALERT. PT REPORTS PAIN TO ABDOMEN IS "FINE RIGHT NOW." NO ADDITIONAL REQUESTS OR COMPLAINTS AT THIS TIME. CALL LIGHT WITHIN REACH. BED RAILS UP.
--- NOTE | 2022-04-27 08:58 | NUR ---
MORNING ASSESSMENT AND MEDICAITON DUE. 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 PT REPORTS 5/10 PAIN AT THIS TIME, PAIN MEDICATION GIVEN IN ANTICIPATION OF PHYSICAL THERAPY. IV ASSSESSED, WNL. NO S/S OF PHLEBITIS NOTED. IV MAG STARTED (SEE OCT). PT ALERT AND ORIENTED TO ALL. STRUCTURAL ANALYSIS ENGINEER INTACT. PT RPEORTS STRENGTH IS IMPROVING. PT REPROTS HE STILL FEELS "MILES" FROM HIS NORMAL STRENGTH AND MOBILITY. LUNG SOUNDS CLEAR. HEART TONES REGULAR. CMS INTACT. TRACE EDEMA REMAINS TO BILATERAL FEET. +2 DEPENDANT EDEMA REMAINS TO RIGHT SIDE OF ABDOMEN MAKING RIGHT ABDOMEN MORE FIRM THAN LEFT. ABDOMEN REMAINS TENDER TO PALPATION. BOWEL TONES ACTIVE. MIDLINE INCISION UNCHANGED, WITH EDGES WELL APROXIMATED UNTIL LAST 1.5 CM OF INCISION WHERE EDGES ARE 0.25CM APART AND SMALL AMOUNTS OF RED/MILKY FLUID IS DRINAING. OSTOMY BAG REMAINS INTACT WITH SOFT BROWN TO YELLOW STOOL. PINK STOMA NOTED. MIGUELITO DRAINS 1 AND 3 DRAINING SEROUS FLUID IN SCAN AMOUNTS. MIGUELITO DRAIN 2 CONTINUES TO DRAIN MILKY FULID IN SMALL AMOUNTS. PEG TUBE WNL, REMAINS CLAMPED AT THIS TIME. NO DRAINAGE NOTED. GAUZE AROUND INCERTION SITE IN PLACE. PT REMAINS UP TO CHAIR, EATING BREAKFAST. NO ADDITONAL REQUESTS OR COMPLAINTS AT THIS TIME. CALL LIGHT WITHIN REACH.
--- NOTE | 2022-04-27 09:43 | NUR ---
PT CALL LIGHT ON. PT REQUESTS AN ICE PACK FOR 8/10 PAIN IN LOWER BACK. ICE PACK PROVIDED. PT REPORTS "FEELING YOMAIRA BLAH" AFTER BREAKFAST. PT ENCORUAGED TO REST AND CONTINUE TO MONITOR. PT DENIES ADDITIONAL REQUESTS OR COMPLAINTS. CALL LIGHT WITHIN REACH. PT STATES HE WILL CALL NURSING STAFF IF HE DOES NOT FEEL BETTER WITH REST.
--- NOTE | 2022-04-27 10:00 | NUR ---
REPORTS GIVEN TO SHAR WHEELER WHO IS ASSUMING FULL CARE OF PT WITH ASSISTANCE FROM THIS RN.
--- NOTE | 2022-04-27 10:31 | NUR ---
PUMP ALARMIN, INFUSION AND FLUSH COMPLETE. IV ASSESSED, WNL. SECOND MAGNESIUM BAG STARTED (SEE MAR). PT REPORTS 6/10 PAIN IN ABDOMEN AND LOWER BACK. ICEPACKS IN PLACE. PT DENIES NEED FOR ADDITIONAL PAIN MEDICATION. PT REPORTS FEELING OF "BLAH" CONTINUES. PT ANTICIPATES WORKING WITH PT WILL HELP WITH THIS. PT IS TALKING ON THE PHONE, CALL LIGHT WITHIN REACH. NO ADDITIONAL QUESTIONS OR COMPLAINTS AT THIS TIME.
--- NOTE | 2022-04-27 11:00 | NUR ---
MEDICATION GIVEN (SEE MAR). PT SITTING IN CHAIR ON IPAD. PT DENIES ANY QUESTIONS OR NEEDS AT THIS TIME.
--- NOTE | 2022-04-27 11:30 | NUR ---
THIS MORNING GOT HIM TO SIT UP ON THE SIDE OF HIS BED. PATIENT EMPYTIED OUT HIS OSTOMY BAG. BEFORE SITTING UP IN HIS CHAIR. THAN AFTER BREAKFAST PATIENT BRUSHED HIS TEETH AND WASHED HIS FACE. BED LINENS CHANGED.
--- NOTE | 2022-04-27 11:49 | NUR ---
PT REPORTS NAUSEA. PRN MEDICATION FOR NAUSEA GIVEN (SEE MAR). PT SITTING IN CHAIR WORKING ON [employer]. NO OTHER NEEDS OR CONCERNS AT THIS TIME.
--- NOTE | 2022-04-27 11:58 | NUR ---
BLOOD GLUCOSE CHECK WITH SYLVIA SMITH IN ROOM. PT TOLERATED WELL. CALL LIGHT WITHIN REACH. PT SITTING IN CHAIRL WORKING ON [employer]. NO QUESTIONS OR CONCERNS AT THIS TIME.
--- NOTE | 2022-04-27 12:27 | NUR ---
PT MEDICATION GIVEN (SEE MAR). PTS GIVEN 1U OF INSULIN PRIOR TO LUNCH. PTs LUNCH TRAY ARRIVED. IV MEDICATION INFUSION COMPLETE, PUMP ALARMING. PT SALINE LOCKED. PT SITTING IN CHAIR EATING LUNCH. NO FURTHER QUESTIONS OR NEEDS AT THIS TIME.
--- NOTE | 2022-04-27 12:30 | NUR ---
PT REQUESTING ICE WATER. REFILLED PTs WATER CUP. PT SITTING IN CHAIR EATING LUNCH. CALL LIGHT WITHIN REACH. NO FURTHER NEEDS AT THIS TIME.
--- NOTE | 2022-04-27 13:54 | NUR ---
AFTERNOON ASSESSMENT. OSTOMY CARE, PT PERFORMED OSTOMY CARE WITH ASSISTANCE OF SHAR COLLINS. MIGUELITO DRAIN 1 DRAINAGE COLOR MILKY, AWARE. MIGUELITO DRAIN 2 DRAINAGE MILKY IN COLOR. MIGUELITO DRAIN 3 SEROUS IN COLOR. MIDLINE INCISION OPEN TO AIR, DRIED/CRUSTED DRAINAGE NOTED. CAUDAL 2CM OF INCISION IS NOT WELL APPROXIMATE LEAKING SCANT TO SMALL AMOUNT RED/MILKY FLUID, AWARE. PT REPORTS 6/10 PAIN TO ABDOMEN AND LOWER BACK, DENIES ANY PAIN MEDICATION AT THIS TIME. ICE PACK IN PLACE ON ABDOMEN. FLUSHED PEG TUBE WITH 120ML OF TAP WATER BY SHAR COLLINS. IV SITE C/D/I SALINE LOCKED. PT ALERT AND ORIENTED TO TIME, PLACE, SELF, AND POC. TRACE AMOUNT OF EDEMA TO BILATERAL FEET. ABDOMEN TENDER TO PALPATION, ACTIVE BOWEL TONES IN ALL QUADRANTS. ASSISTED PT TO BED, PT DENIED SCD USE. BED RAILS UP, CALL LIGHT IN PLACE. NO FURTHER NEEDS OR CONCERNS AT THIS TIME.
--- NOTE | 2022-04-27 14:30 | NUR ---
AFTERNOON ASSESSMENT DUE. PT UP TO CHAIR. PT REPORTS 6/10 PAIN WITH ACTIVITY THAT IS TOLERABEL AND "DOING FINE" WITH REST. AFTERNOON ASSESSMENT COMPLTED BY SHAR WHEELER WITH ASSISTANCE FROM THIS RN. PT ALERT AND OREINTED. PT REQUESTS TO GET BACK TO BED. STAND BY ASSIST BACK TO BED WITH FWW. PT EMPTIES HIS OWN OSTOMY BAG WITH STAND BY ASSIST. ABDOMEN REMAINS SOFT ON LEFT SIDE WITH +1-2 PITTING EDEMA ON RIGHT SIDE WHICH MAKES RIGHT ABDOMEN MORE FIRM TO TOUCH. BOWEL TONES ACTIVE. STOOL BROWN/YELLOW AND SOFT BUT MORE FORMED THAN YESTERDAY. MIGUELITO DRAIN #1 IS NOW DRAINING SMALL AMOUNTS OF MILKY FLUID, MIGUELITO DRAIN #2 ALSO DRAINAING SMALL AMOUNTS OF MILKY FLUID. MIGUELITO DRAIN #3 DRAINING SCAN AMOUNTS OF SEROUS FLUID. MIDLINE INCISION UNCHANGED, WELL APPROXIMATED FOR MOST OF INCISION BUT FOR LOWER 2CM OF INCISION WHICH IS DRAINING SMALL AMOUTS OF RED MILKY FLUID. PEG TUBE FLUSHED WIHT 120ML TAP WATER, FLUSHES EASILY, REMAINS CLAMPED AT THIS TIME. PT DENIES NAUSEA, STATING IT RESOLVED WITH REST AND ZOFRAN. PT RESTING IN BED. NO ADDITIONAL REQUESTS OR COMPLAINTS. WARM BLANKETS PROVIDED. CALL LIGHT WITHIN REACH. BED RAILS UP.
--- NOTE | 2022-04-27 15:42 | NUR ---
DR PRO CALLED REGARDING ORDERS FOR GASTROGRAPHEN TOMORROW AND PTS KIDNEY FUNCTION. NEW LAB ORDERS AND FLUID ORDERS GIVEN. ORDERS ENTERED. REPEAT BACK PERFORMED. PT RESTING IN BED. PT REPORTS PAIN IS WELL CONTROLLED AT 5/10. ICE PACK IN PLACE. PT DENIES NAUSEA. NO ADDITIONAL NEEDS AT THIS TIME. CALL LIGHT WITHIN REACH. BED RAILS UP.
--- NOTE | 2022-04-27 16:32 | NUR ---
THIS RN TO ROOM TO CHECK ON PT. NEW ORDERS IN PLACE. MEDICATION GIVEN ORDERED. IV ASSESSED WNL. IV FLUIDS STARTED. PT UPDATED ON PLAN OF CARE, VERBALIZES UNDERSTANDING AND STATES QUESTIONS HAVE BEEN ANSWERED. PT REPORTS 4/10 ABDOMINAL PAIN THAT IS WELL CONTROLLED AT THIS TIME. PT REPORTS "JUST AN EDGE" OF NAUSEA. PT REPORTS NAUSEA IS TOLERABLE AT THIS TIME. PT RESTING IN BED ON IPAD. CALL LIGHT WITHIN REACH.
--- NOTE | 2022-04-27 17:40 | NUR ---
PT CALL LIGHT ON. PT REQUESTS ASSISTANCE UP TO CHAIR FOR DINNER. STAND BY ASSIST UP TO CHAIR. PT DENIES ADDITIONAL REQUESTS OR COMPLAINTS. CALL LIGHT FEMI THIBODEAUX. PT EATING DINNER.
--- NOTE | 2022-04-27 18:57 | NUR ---
THIS RN TO ROOM TO CHECK ON PT. PT REQUESTS TO GET BACK TO BED AFTER DINNER. 1 PERSON ASSIST WITH FWW BACK TO BED. PT REPORTS FEELING "EXHAUSTED." PT DOES INDEED LOOK MUCH MORE WORN OUT COMPARED TO YESTERDAY. VITAL SIGNS STABLE. PT ASSITED WITH EMPTYING OSTOMY BAG, STAND BY ASSIST. MIGUELITO DRAIN 1 EMPTIED OF 5 ML MILKY FLUID. MIGUELITO DRAIN #2 EMPTIED OF 35 ML MILKY FULID, AND MIGUELITO DRAIN 3 SHOWS MINMAL SEROUS FLUID, NOTHING TO EMPTY. PT REPORTS 8/10 PAIN IN ABDOMEN AND REQUESTS PAIN MEDICAITON, SEE MAR FOR MEDICATION GIVEN. BELONGINGS WITH IN REACH. NO ADDITIONAL REQUESTS OR COMPLAINTS. CALL LIGHT WITHIN REACH. BED RAILS UP.
--- NOTE | 2022-04-27 19:01 | NUR ---
PT POST OP DAY 14 AFTER MULTIPLE PROCEEDURES. PT UP WITH STAND BY ASSIST AND FWW THIS SHIFT. PT TOLERATING REGULAR DIET WITH GOOD APPITITE. BLOOD SUGAR CHECKS AC, HS, WITH SLINDING SCALE INSLUIN. BOWEL TONES ACTIVE. LIGHT BROWN STOOL NOTED IN OSTOMY BAG, WITH PINK STOMA, STOOL THINKENED THIS SHIFT, MORE SOFT THAN LIQUID. PT DEMONSRATES CORRECT EMPTYING OF OSTOMY BAG. PEG TUBE CLAMPED THROGHOUT SHIFT, FLUSHED WITH 120ML TAP WATER. MID LINE INCISION CONTINUES TO SHOW OLD DRY RED DRAINAGE WITH CAUDAL END LEAKING SMALL AMOUTNS OF MILKY TO RED FLUID. CAUDAL END OF INCISION NOT WELL APROXIMATED FOR ~2CM CMS. THE REMAINDER OF ABDOMINAL INCISION REMAINS WELL APROXIMATED WITH ALEXIA INTACT. MIGUELITO DRAIN 3 DRAINING SEROUS FLUIDS IN SCANT, UNMEASUREABLE AMOUNTS. MIGUELITO DRAIN 1 AND 2 NOW DRAINING MEHRAN FLUID IN SMALL AMOUNTS, MD AWARE. PRN PAIN MEDICATION GIVEN THIS SHIFT PRIRO TO PHYSICAL THERAPY AND THIS EVENING, WITH GOOD RESULTS. IV FLUIDS STARTED IN ANTICIPATION OF POSSIBLE GASTROGRAPHEN WITH IMAGING TOMORROW. PT VOIDING QUANITTY SUFFICIENT. PT USES CALL LIGHT AND MAKES NEEDS KNOWN.
--- NOTE | 2022-04-27 19:09 | NUR ---
DR PRO UPDATED ON PT STATUS AND ASSESSMENT. NO NEW ORDERS AT THIS TIME.
--- NOTE | 2022-04-27 19:30 | NUR ---
bedside report from Radha cabral, visualized Jpx3, 1&2 with Milky fluid that is aware of, #3 with serous drainage. 04/25 cultures done with levaquin being given with med routine. plan for ct ab with gastrographin 04/28/22 iv fluids lr@85 known low h/h pt alert and Oriented - call light in reach.
--- NOTE | 2022-04-27 21:47 | NUR ---
pt c/o nausea - iv zofran given, pt resting comfortably - no vomiting, feeding tube area with dried drainage noted - cleaned with chlorhexidine sponge - open area at the distal area noted from pressure near the stich - drain sponge placed around the tube for comfort after cleaning. mid line insc. nichol well approximated and intact. jpx3 wnl and dry at sites. illiostomy site wnl - pt has been able to care for it on his own- knows to ask for assistance if needed. bs= 151 and 1 unit insulin given. iv cont to fuse lr@85. call light in reach -
--- NOTE | 2022-04-28 03:48 | NUR ---
ANSWERED PT CALL LIGHT, IV PUMP BEEPING, MAINTENANCE IV FLUID COMPLETE, NEW BAG OF LR HUNG. REFRESHED ICE WATER AND EMPTIED URINAL. PT DENIES OTHER NEEDS. CALL LIGHT IN REACH.
--- NOTE | 2022-04-28 03:52 | NUR ---
pt called for iv alarm, new iv bag hung from marianna harrison, pt denies other needs. call light in reach.
--- NOTE | 2022-04-28 07:35 | NUR ---
REPORT RECEIVED FROM SHAR SERRATO. PT RESTING IN BED WITH EYES CLOSED, RESPIRATIONS EVEN AND UNLABORED. BED RAILS UP. CALL LIGHT WITHIN REACH.
--- NOTE | 2022-04-28 08:59 | NUR ---
MORNING ASSESSMETN AND MEDICATION DUE. PT UP TO CHAIR, EATING BREAKFAST. PT REPORTS 6/10 PAIN THIS MORNING IN ABDOMEN WHICH IS "MORE ON THE RIGHT SIDE." PT REQUESTS PAIN MEDICATION, SEE MAR FOR MEDICAITON GIVEN. PT REPORTS 3/10 BACK PAIN, ICE PACK IN PLACE. PT REPORTS NASUEA. NOTED THAT PT HAS HAD NAUSEA MOST MORNINGS OVER THE LAST FEW DAYS WITH ZOFRAN GIVEN. PT REPORTS THE FOOD AND GETTING UP SEEMS TO START THE NAUSEA. PT ALERT AND ORIENTED TO ALL. PT UP WITH STAND BY ASSSIST AND FWW BUT REPORTS HE IS "STILL WEAK." LUNG SOUNDS CLEAR, HEART TONES REGULAR. MILD TACHY CARDIA NOTED WITH HEART RATE 100-110'S. TRACE EDMEA TO BILATEARL FEET. STRONG PULSES NTOED. +2 PITTING EDEMA REMAINS TO RIGHT SIDE OF ABODMEN. PT DENEIS INCRASED PAIN WITH PALPATION. BOWEL TONES ACTIVE. LOOSE/LIQUID YELLOW STOOL NOTED IN OSTOMY BAG, OSTOMY LEAKING OUT OF MEDIAL SITE. OSTOMY CARE AND BAG CHANGE DONE PER PROTOCOL. STOMA POWDER USED, SKIN PROTECTANT AND BARRIER FILM USED. PT TOLERATED BAG CHANGE WELL. NO SKIN BREAKDOWN NOTED AROUDN OSTOMY SITE, PINK STOMA NOTED. PEG TUBE LEAKING YELLOW FLUID AT INCERTION SITE. GAUZE CHANGED. SKIN CARE DONE. PEG TUBE FLUSHED WITH 120ML OF TAP WATER. MIDLINE INCISION UNCHANGED, EDGES WELL APROXIMATED WITH DRY RED DRAINAGE AND ALEXIA IN PLACE FOR MOST OF INCISION. DISTAL CAUDAL END OF INCISION FOR ~2CM LESS APROXIMATED WITH RED/MILKY DRAINAGE NOTED. MD AWARE. MIGUELITO DRAINS #1 AND 2 SHOW MILKY FLUID IN SMALL AMOUNTS. MIGUELITO DRAIN #3 DRIANING SEROUS FLUID IN SCANT AMOUNTS. MEDICATIONS GIVEN. GASTROGRAPHEN GIVEN (UNABLE TO SCAN, WILL NOTIFY PHARMACY. IMAGING CALLED AND STATES THEY WILL COME TO TAKE PT FOR IMAGING. NO ADDITIONAL NEEDS AT THIS TIME. CALL LIGHT WITHIN REACH. PT REMAINS UP TO CHAIR.
--- NOTE | 2022-04-28 10:41 | NUR ---
THIS RN TO ROOM TO CHECK ON PT. PT REPORTS PERCOCET IS HELPING AND REPROTS PAIN IS NOW AT 6/10. PT DENIES NEED FOR ADDITIONAL PAIN MEDICATION. PT REPORTS NAUSEA CONTINUES AND REQUESTS ADDITIONAL NAUSEA MEDICATION 6.25MG OF PHENEGRAN GIVEN SLOW IV PUSH DILUTED IN 20ML NS WITH CONTINUALLY RUNNING IV SITE. PT DENIES PAIN OR BRUNING AT IV SITE. IV REMAINS WNL, IV FLUIDS CONTINUE. IMAGING HAS NOT YET ARRIVED. CALLED AGAIN AND STATE THEY ARE ON THEIR WAY. NO ADDITIONAL NEEDS AT THIS TIME. CALL DILLON THIBODEAUX.
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
--- NOTE | 2022-04-28 10:59 | NUR ---
THIS RN IN TO NS LOCK IV FOR RAIOLOG AND IV IS LEAKING. IV DC'D BYT THIS RN INTACT. DENNIS,RN PRIMARY NURSE INFORMED AND SHE WILL COME AND START A NEW IV. CALL LIGHT IS IN REACH.
--- NOTE | 2022-04-28 11:00 | NUR ---
I talked to Michele Hua, Wilfrid's this morning. She states that [facility] staff member Ny, who is Wilfrid's Radio Time Sales Supervisor with [facility], has stated that if Wilfrid goes home with Home Health, [facility] will treat [facility] as a preferred provider as there are no other Home Health options in this area, and [facility] is the agency which the patient and prefer. I have placed a call to Ny at [facility] to clarify information, Ny was unavailable when I called but I did leave her a message. Her direct line is - [phone]. I also called Michele back and explained to her that I had left a message with Ny, and I would update her (Michele when I had received further information from Ny). At the time of this call Michele did let me know that she was aware that her may need half-way care upon discharge. Michele stated that she had called Merle at the [facility] in [place], and she did verify that Merle at the [facility] was a preferred provider for [facility]. A solid discharge plan has not been made at this time by the provider.
--- NOTE | 2022-04-28 11:37 | NUR ---
PATIENT OFF THE FLOOR IN CT
--- NOTE | 2022-04-28 12:01 | NUR ---
PT RETUNED FROM CT SCAN AND BACK TO BED WITH 1 PERSON ASSIST. PT REPORTS 10/10 PAIN IN LOWER ABDOMEN "EMPHASIS ON THE RIGHT." NO PAIN MEDICATIONS AVALIABLE. CALL PLACED TO DR. PRO. NO ANSWER, AWAITING CALL BACK. OSTOMY BAG LEAKING AGAIN, CHANGED PER PROTOCOL. LARGE AMOUNTS OF LIQUID YELLOW STOOL NOTED. PT DNEIES NASUEA. GOWN AND BED LINENS CHANGED. PT REPORTS HE IS FEELIGN TOO WEAK TO GET UP FOR LUNCH. LUNCH PROVIDED IN BED WITH HEAD OF BED ELEVATED TO 30 DEGREES. PT DENIES ADDITIONAL REQUESTS OR COMPLAINTS. CALL LIGHT WITHIN REACH. BED RAILS UP.
--- NOTE | 2022-04-28 12:37 | NUR ---
PRIMARY NURSE CALLED PHYSICIAN TO REPORT PATIENT'S PAIN CONTROL. RETURN CALL CHAMGED ORDER TO MEDICATE WITH PERCOCET 2 TAB NOW AND CHANGE PRN DOSE. REPEAT BACK PREFORMED, ORDERS ENTERED
--- NOTE | 2022-04-28 13:02 | NUR ---
RETURN CALL RECEIVED FROM DR. PRO. DR. PRO UPDATED ON PT STATUS. ORDERS TO GIVE ADDITONAL 2 TABELT PEROCET DOSE NOW AND CHANGE PRN DOES, ORDERS ENETERD BY SHAR EAST. REPEAT BACK PERFORMED. PT REPORTS 8/10 PAIN REMAINS IN ABDOMEN, ESPICALLY IN LOWER ABDOMEN. PT REPORTS NASUEA CONTINUES. SEE MAR FOR MEDICATION GIVEN. VITAL SINGS STABLE. PT ENERGY LEVEL CONTINUES TO BE LESS TODAY WITH PT NOT WANTING TO GET OUT OF BED. NO ADDITIONAL NEEDS AT THIS TIME. CALL LIGHT WITHIN REACH. BED RAILS UP.
--- NOTE | 2022-04-28 13:45 | NUR ---
CONNECTED WITH PT HE WAS HEADED TO IMAGING FOR CT. PT ALERT, SOMEHAT DROWSY. SAID HE SLEPT WELL LAST NIGHT. GAVE ENCOURAGEMENT, WILL FOLLOW.
--- NOTE | 2022-04-28 14:30 | NUR ---
PATIENT REPORTS NAUSEA AND PAIN (7/10) HAS DECREASED AFTER MEDS. MID LINE INCISION SEPARTED AT THE BOTTOM 3CM AND 1CM ACROSS. ONE STAPLE IS NOT INTAKE. OSTOMY BAG LEAKING AND CHANGED. PATIENT'S AT BEDSIDE. PEG TUBE SECURED, DRESSING IN PLACE. MIGUELITO #1 SUTURES INTACT, REMOVED 10 MLS OF MILKY DRAINAGE, MIGUELITO #2 SUTURES INTACT, REMOVED 20 MLS OF MILKLY DRAINAGE, MIGUELITO #3 SUTURES INTACT, SCANT AMT OF SEROUS DRAINAGE. ABD SOFT ON THE LEFT SIDE, RIGHT SIDE FIRM WITH PITTING EDEMA. URINAL AND CALLL IGHT IN REACH. BED RAILS UP AND AT BEDSIDE. NO OTHER NEEDS AT THIS TIME
--- NOTE | 2022-04-28 14:51 | NUR ---
PATIENT REMAINS ON A REGULAR, VEGETARAIN, GLUTEN-FREE, DAIRY-FREE DIET. HE IS DOING WELL WITH THE MENU CHOICES. WE ARE SENDING ALMOND MILK, HOT TEA, OR JUICE WITH MEALS PER HIS PREFERENCE. HIS APPETITE IS GOOD. HE HAS NO QUESTIONS OR CONCERNS AT THIS TIME. WILL CONTINUE TO MONITOR.
--- NOTE | 2022-04-28 15:00 | NUR ---
Attempted to call [facility] at the [facility], message left.
--- NOTE | 2022-04-28 16:01 | NUR ---
PATIENT UP IN CHAIR. PATIENT REPORTS 8/10 ABD PAIN, REPORTS NAUSEA IS CONTROLLED. AT BEDSIDE, CALL LIGHT INREACH.
--- NOTE | 2022-04-28 17:03 | NUR ---
PT HERE POST OP DAY DAY 17 AFTER MULTIPLE PROCEEDURES. PT UP WITH STAND BY ASSIST AND FWW THIS SHIFT TO CHAIR AND TO CT AND WITH PHYSICAL THERAPY. PT TOLERATING REGULAR DIET WITH GOOD INTAKE. PT REPORTS INCREASED PAIN THIS SHIFT. PRN PERCOCET DOES INCREASED. OSTOMY BAG CHANGES X3 THIS SHIFT DUE TO LEAKING. OSTOMY OUTPUT OF LIQUID YELLOW STOOL THIS SHIFT. NOTED THAT GASTROGRAPHEN WAS GIVEN. PT DEMONSRATES CORRECT EMPTYING OF OSTOMY BAG. PEG TUBE CLAMPED THROGHOUT SHIFT, FLUSHED WITH 120ML TAP WATER MID LINE INCISION CONTINUES TO SHOW OLD DRY RED DRAINAGE WITH CAUDAL END LEAKING SMALL AMOUTNS OF MILKY TO RED FLUID. CAUDAL END OF INCISION NOT WELL APROXIMATED FOR ~3CM CMS. ONE STAPLE NO LONGER INTACT. THE REMAINDER OF ABDOMINAL INCISION REMAINS WELL APROXIMATED WITH ALEXIA INTACT. OLD DRY RED DRAINAGE REMAINS. MIGUELITO DRAIN 3 DRAINING SEROUS FLUIDS IN SCANT, UNMEASUREABLE AMOUNTS. MIGUELITO DRAIN 1 AND 2 STILL DRAINING MEHRAN FLUID IN SMALL AMOUNTS, MD AWARE. PRN NAUSEA MEDICATIONS GIVEN MULTIPLE TIMES THIS SHIFT. BLOOD SUGAR CHECKS WITH MEALS AND HS. PT VOIDING QUANTITY SUFFICIENT. PT USES CALL LIGHT AND MAKES NEEDS KNOWN.
--- NOTE | 2022-04-28 17:16 | NUR ---
1715 IN ROOM WITH PATIENT. PATIENT STATES HE IS FEELING NAUSEATED. PRN ZOFRAN GIVEN. PATIENT RESTING CHAIR. ICE PACKS GIVEN TO PATIENT. CALL LIGHT WITHIN REACH NO FUTHER NEEDS. NO QUESTIONS AT THIS TIME.
--- NOTE | 2022-04-28 17:40 | NUR ---
THIS RN TO ROOM WITH DR. PRO FOR ROUNDS. PT UPDATED ON CT SCAN RESULTS AND PLAN OF CARE. PT VERBALIZES UNDERSTANDING AND STATES HIS QUESTIONS HAVE BEEN ANSWERED. PT UP TO CHAIR, DINNER DELIVERED. NO INSULIN NEEDED. PT RPEORTS 6/10 PAIN IN ABDOMEN WITH ICE PACK IN PLACE. PT DENIES NEED FOR ADDITIONAL PAIN MEDICATION AT THIS TIME. PT REPORTS "NO TOO MUCH" NAUSEA, THAT IS TOLERABLE AT THIS TIME. NO ADDITIONAL NEEDS. CALL LIGHT WITHIN REACH.
--- NOTE | 2022-04-28 18:36 | NUR ---
PATIENT ASSISTED BACK TO BED, ONE PERSON STAND BY. PATIENT REPORTS MILD NAUSEA AFTER DINNER. PATIENT SIGNED BLOOD CONSENT. NO FUTHER QUESTIONS AT THIS TIME. CALL LIGHT IN REACH, BED RAILS UP. PATIENT REPORTS PAIN 7/10, MEDICATION GIVEN
--- NOTE | 2022-04-28 19:08 | NUR ---
LAB ORDERS NEEDED TO TYPE AND SCREEN AND CROSS MATCH 2 UNITS PBR NEEDED FOR BLOOD ADMINISTRATION PER MD ORDER. LAB CALLED, ORDERS ENETERED. LAB TO COME AND DRAW AND BLOOD BAND PT.
--- NOTE | 2022-04-28 19:20 | NUR ---
bedside report from marianna Garcia, new order for 2 units prbc h/h 7.10/13. jpx3 unchanged and illiostomy draining soft stool. iv lr@85 running and pt denies pain at this time, call light in reach.
--- NOTE | 2022-04-28 22:35 | NUR ---
pt talkative, po melatonin given per request. blood consent checked and preped iv ns for blood tubing. bs 142 - 1 unit insulin given, checked with chrissy cabral.
--- NOTE | 2022-04-28 23:26 | NUR ---
RN IN ROOM WITH PT FOR 30 MIN OF START OF BLOOD TRANSFUSION, VITALS WNL CHARTED, PT TALKATIVE AND IN GOOD SPIRITS. IV WNL - BLOOD CHECKED WITH 2 RN SEE INTERVENTION FOR DETAILS. PT TOLLERATING WELL. 3 MIGUELITO SITES ARE UNCHANGED 2 WITH MILKY APPERANCE, FEEDING TUBE CLAMPED AND OSTOMY WNL.
--- NOTE | 2022-04-29 00:10 | NUR ---
blood continues to fuse via pump with no sign/sx of reactions at this time, rate 125 and pt is tollerating transfusion well, eyes closed, resp even, 100% ra and hr 98. call light in reach
--- NOTE | 2022-04-29 06:33 | NUR ---
[facility] [id number], SEE PAPER CHARTING.
--- NOTE | 2022-04-29 09:32 | NUR ---
Admin Percocet 7.5/325mg po one tab with small sip of water.
--- NOTE | 2022-04-29 10:35 | NUR ---
Patient sitting up in chair, no distress. Patient denies nausea, he states abd pain has improved. Drains x3 are all intact/patent, notable purulent dainage. ABD incision is unchanged, nichol intact. Ostomy emptied by patient, per report from NUCLEAR REACTOR ENGINEER, pt is doing very well with self care. IV site patent, fluids infusing per provider order. Patient is currently reading, no needs.
--- NOTE | 2022-04-29 12:56 | NUR ---
Sent stat gram stain/culture of MIGUELITO #1 drainage to lab at this time.
--- NOTE | 2022-04-29 14:18 | NUR ---
PT ALERT, ORIENTED AND WORKING ON COMPUTER WHILE SITTING IN CHAIR. PT WAS TO HAVE SURGERY, BUT INFORMED ME IT WAS CANCELLED. GAVE ENCOURAGEMENT, REQUESTED PRAYER. WILL FOLLOW
--- NOTE | 2022-04-29 16:00 | NUR ---
Attempted to contact [facility] Again left a message for [facility], requesting if they have beds. I have not had a response. Faxed chart requesting bed for PT/OT/SN for IV antibiotics.
--- NOTE | 2022-04-29 18:40 | NUR ---
ANA from Dr. Hernandez to start Augmentin 500mg po TID.
--- NOTE | 2022-04-29 19:05 | NUR ---
bedside report from Christianne rn, pt in good spirits, told me about getting fresh air outside today!! feels better after after his blood transfusion last night with this rn, valentin x3 unchanged with milky drainage, g tube to abd clamped, illiostomy wnl and pt caring for that on own. pt tollerating reg ada diet and iv sl. call light in reach - rn emptied urinal for 200 ml.
--- NOTE | 2022-04-29 20:25 | NUR ---
v/s and i&o's taken and charted. blood sugar check done. emptied jpx3. ostomy bag emptied by the patient. hop picker garbage and use linens. ice water refreshed. white board updated. patient denies further care or needs at this time.
--- NOTE | 2022-04-29 21:30 | NUR ---
PO MELATONIN GIVEN PER REQUEST, DENIES PAIN MEDS, JPX3 MILKY WNL - EMPTIED SCANT. OSTOMY WNL - G TUBE TO LEFT ABD WNL, CLAMPED, IV FUSING - PT REPORTS EATING A GOOD DINNER. TALKATIVE TONIGHT. CALL LIGHT IN REACH.
--- NOTE | 2022-04-30 01:35 | NUR ---
iv alarm, arm bent occluded- straitened and reset - site wnl. call light in reach. denies needs.
--- NOTE | 2022-04-30 03:30 | NUR ---
CHECKED IN ON PATIENT. HE HAS CPAP ON, VISIBLE RISE AND FALL OF CHEST, EYES CLOSED, RESTING IN BED, CALL LIGHT WITHIN REACH.
--- NOTE | 2022-04-30 06:16 | NUR ---
pt insision with nichol wnl midline, left side feeding tube with old drainage caked around site - cleaned with chlorhexidine sponge. Distal area is open under site near stich from pressure of tubeing when pt bends abdomen and it presses on skin- area cleaned and non adherent pad placed in between tubing and skin. pt given bed bath and new gown, 1 person trsf to chair and linens changed. valentin x3 all milky in color - emptied for 3 ml each. ostomy emptied - wnl - soft stool and gas. pt again using urinal - denies needs - call light in reach and pt up in chair.
--- NOTE | 2022-04-30 06:35 | NUR ---
CHANGED BED LINEN. CHANGED GOWN. WARM WASH CLOTH FOR FACE PROVIDED. PATIENT IS BACK IN BED FROM CHAIR. SIDE TABLES AND CALL LIGHT WITHIN REACH. ICE WATER REFILLED.
--- NOTE | 2022-04-30 07:50 | NUR ---
Patient resting in bed, eyes closed, respirations even and non labored. Patient has no notable distress. Call light within reach.
--- NOTE | 2022-04-30 08:14 | NUR ---
PT LAYING IN BED. BS TAKEN. PT ASSISTED TO CHAIR. URINALS EMPTIED. PT GIVEN WARM BLAKET. NO NEEDS AT THIS TIME. CALL LIGHT WITHIN REACH.
--- NOTE | 2022-04-30 10:28 | NUR ---
PT SITTING IN CHAIR. VITALS AND IS AND OS TAKEN. PT GIVEN NEW PILLOW. NEW TRASH BAG PUT IN TRASH CAN. NO FURTHER NEEDS. CALL LIGHT WITHIN REACH.
--- NOTE | 2022-04-30 10:39 | NUR ---
Ostomy leaking, removed and replaced at this time. Skin surrounding stoma cleaned using wound spray/warm water, pat dry. Skin then prepped with skin barrier spray, then ostomy powder/paste for appliance adherence. Patient tolearted well. X3 MIGUELITO drains noted, all secured and patent, notable milky drainage in all three. PEG tube intact/clamped. Patient reports his pain is tolerable at this time. No current needs. Personal supplies and call light within reach.
--- NOTE | 2022-04-30 11:00 | NUR ---
Spoke with Wilfrid, he states he is not feeling well. Cont. with increased nausea. We discussed I have sent his chart to [facility] in [place] as this is in net work for his insurance. Really not sure of a dc date at this time. Pt denies needs.
--- NOTE | 2022-04-30 13:53 | NUR ---
PT SITTING IN CHAIR. FAMILY MEMBER PRESENT. VITALS AND IS AND OS COMPLETE. NO NEEDS AT THIS TIME. CALL LIGHT WITHIN REACH.
--- NOTE | 2022-04-30 15:03 | NUR ---
Patient sitting up visiting with his , no distress. Patient denies pain and or nausea. MIGUELITO drains are intact, milky drainage noted. Patient has no needs. IV patent, fluids infusing per provider order. Personal supplies and call light within reach.
--- NOTE | 2022-04-30 16:00 | NUR ---
CALL LIGHT ANSWERED. PT REQ ICE BACK FOR LOWER BACK. ICE PACK GIVEN. NO FURTHER NEEDS. CALL LIGHT WITHIN REACH.
--- NOTE | 2022-04-30 18:53 | NUR ---
PT UPRIGHT IN BED. NURSE IN ROOM. VITALS TAKEN NURSE SAID SHE DID IS AND OS. NO NEEDS AT THIS TIME. CALL LIGHT WITHIN REACH.
--- NOTE | 2022-04-30 22:25 | NUR ---
pT ALERT AND ORIENTED, FOLLOWS INSTRUCTIONS. ON ROOM AIR, LUNG CLEAR BILAT. MIDLINE INCISION WITH ALEXIA OPEN TO AIR, LOWER 1INCH SLIGHTLY DESHIS MOIST CENTER, PINK, NO ODOR. MIGUELITO R LOW QUAD X1 AND 2 LEFT LOW QUAD WITH MILKY DRAINAGE. FEEDING TUBE PATENT. R OSTOMY EMPOTIED BY PT, DRAINING SEMISOLID YELLOW BM. ABD SOFT, NOT TENDER DURING ASSESSMENT. DENIES C/O PAIN, MICHELLE, PASSING GAS. USES URINAL VOIIDNG QS. IVF INFUSING RAC AND GABRIELLE SL PATENT. LEGS ELEVATED, HOB ELEVATED TO COMOFRT. TOLERATING LIQUIDS WELL. NO REQUESTS. USES CPAP AT HS, WILL CALL RT. PT RECEIVED 6MG MELATONIN PER INSOMNIA, PLEASANT. USING CALL LIGHT AT HANDS REACH.
--- NOTE | 2022-04-30 23:29 | NUR ---
USING CPAP, EYES CLOSED, NO DISTRESS, CALL LIGHT AND FLUIDS A T BEDSIDE
--- NOTE | 2022-05-01 02:29 | NUR ---
awakes easily, using CPAP, no distress, temp , room temp the same, warm blanket gien onrequests, midline incision, stoma, JPx3 and feeding tube intact as before no changes. no c/o pain. uses call light, voiding small amounts qs
--- NOTE | 2022-05-01 04:52 | NUR ---
PT IN BED. IS AND OS COMPLETE. RN NOTIFIED THAT OSTOMY DID NOT HAVE ENOUGH OUTPUT TO EMPTY AT THIS TIME. NO FURTHER NEEDS. CALL LIGHT WITHIN REACH.
--- NOTE | 2022-05-01 04:58 | NUR ---
Pt awakes easily, has slept off and on. Melatonin given per insomnia, partially effective. Pt on CPAP at HS, room air when awake/day time. lungs clear dim at bases, no cough this shift. abd soft, tender, was medicated with percocet x1 per abd pain, effective, tolerating liquids well, no emesis. Oral temp at begining of shift was 99.5. afebrile at this time. midline incision with nichol and lower last stapled area 1/2 to 1 inch tip slight gapping 3mm area moist, no drainage noted, fidel, R stoma patent, pt has done emptying himself with minimum of help, R MIGUELITO#1 and L MIGUELITO #2 and #3 draining milky colored drainage. scant amount of yellow drainage noted from #2 insertion site area. TF patent with yellow colored residual even after flushing with 100cc water. uses urinal, voiding small amount of QS urine. edema to LE, elevated, IVF infusing w/o problems, SL patent. pleasant and cooperative, alert and oriented, helps with turning and repositioning. call light and fluids at bedside
--- NOTE | 2022-05-01 06:49 | NUR ---
DR PRO IN ROOM ASSESSING PT
--- NOTE | 2022-05-01 07:50 | NUR ---
PT ASSESSMENT COMPLETED. MUCOPERULENT DRAINAGE FROM MIGUELITO DRAINS. HADLEY DRAINAGE AT INSERTION SITE OF PEG TUBE. PT RATES PAIN 4/10 IN ABDOMENT. REQUESTS PAIN MEDICATION FOR LATER IN THE A.M. IV FLUIDS RUNNING. CALL LIGHT WITHIN REACH.
--- NOTE | 2022-05-01 07:55 | NUR ---
PT RESTING IN BED. BS TAKEN. NO NEEDS AT THIS TIME. CALL LIGHT WITHIN REACH.
--- NOTE | 2022-05-01 08:42 | NUR ---
CALL LIGHT ANSWERED. PT ASSISTED TO CHAIR FROM BED BY 1 MANUFACTURING INDUSTRIAL ENGINEER W FWW. WARM BLANKET GIVEN. ICE WATER REFRESHED. URINALS EMPTIED. NO MORE NEEDS AT THIS TIME. CALL LIGHT WITHIN REACH.
--- NOTE | 2022-05-01 09:35 | NUR ---
ROUNDED ON PT. PT IS SITTING UP IN CHAIR, A/O, RESPIRATIONS EVEN AND REGULAR. NEW BAG OF IV FLUIDS HUNG AND PT SELF EMPTIED OSTOMY BAG. CALL LIGHT WITHIN REACH.
--- NOTE | 2022-05-01 10:28 | NUR ---
TO PT ROOM FOR MEDICATION ADMINISTRATION. PT A/O, SITTING UP IN BED. IV FLUIDS RUNNING. NO COMPLAINTS OR CONCERNS ATT. RATES PAIN 4/10.
--- NOTE | 2022-05-01 11:20 | NUR ---
Spoke with Wilfrid and he states he has discussed with his . He now thinks on dc he would like to go home with . Let him know I have sent his chart to and to a SNF. Will follow up when it gets closer to dc where he wants to go.
--- NOTE | 2022-05-01 11:46 | NUR ---
PT SITTING IN CHAIR. BS TAKEN. NO NEEDS AT THIS TIME. CALL LIGHT WITHIN REACH.
--- NOTE | 2022-05-01 12:02 | NUR ---
TO PT ROOM FOR MEDICATION ADMINISTRATION. PT IS A/O, RESPIRATIONS EVEN AND REGULAR. IV FLUIDS RUNNING. PT DENIES NEEDS OR COMPLAINTS ATT. CALL LIGHT WITHIN REACH.
--- NOTE | 2022-05-01 13:37 | NUR ---
PT SITTING IN CHAIR. FAMILY PRESENT IN ROOM. VITALS AND IS AND OS TAKEN. NO NEEDS AT THIS TIME. CALL LIGHT WITHIN REACH.
--- NOTE | 2022-05-01 15:17 | NUR ---
PT ASSESSMENT COMPLETED. PAIN MEDICATION AND ZOFRAN ADMINISTERED. ASSISTED PT FROM CHAIR TO BED. MIGUELITO #2 AND #3 EMPTIED. IV FLUIDS RUNNING. CALL LIGHT WITHIN REACH. FAMILY AT BEDSIDE.
--- NOTE | 2022-05-01 17:17 | NUR ---
TO PT ROOM FOR MEDICATION ADMINISTRATION. MIGUELITO #1 EMPTIED. GTUBE FLUSHED. PT ALERT, RESPIRATIONS EVEN AND REGULAR. RATES PAIN 6/10. PAIN MEDICATION GIVEN. DENIES ANY OTHER NEEDS/COMPLAINTS ATT.
--- NOTE | 2022-05-01 18:17 | NUR ---
PATIENT IN BED AFTER MEAL, COMPLAINTS OF NAUSEA. VITALS AND I/O'S COMPLETED. OSTEMY DRAINED AND DOCUMENTED. HAS NO OTHER NEEDS AT THIS TIME. CALL LIGHT WITHIN REACH.
--- NOTE | 2022-05-01 18:43 | NUR ---
ROUNDED ON PT. PT C/O NAUSEA. ANTI NAUSEA MED ADMINISTERED.
--- NOTE | 2022-05-01 19:27 | NUR ---
up in chair, watching tv and visiting w family
--- NOTE | 2022-05-01 22:00 | NUR ---
ON ROOM AIR, CLEAR LUNGS, NO COUGH. MIDLINE ABD INCISION WITH ALEXIA, OLD DRAINAGE, DI, EXCEPT LOWER 1INCH MOIST RED WHITE CENTER. R STOMA PATENT, PT DID OWN CARE. R MIGUELITO X1, L MIGUELITO 32 AND 33 WITH MILKY DRAINAGE ALL WITH STRONG ODOR . TF PATENT FLUSHED EASILY, NOTED TO HAVE YELLOW THICK DRAINAGE WHEN FLUSHING WITH WATER. ABD SOFT, TENDER, MICHELLE, PASSING GAS. USES URINAL, IVF AINFUSING SL PATENT TOO. MOVES ALL EXTREMITIES, COOP WITH TURNING AND REPOSITIONING. USES CAPAP AT HS. COOPERATIVE, NO C/O NAUSEAS AT THIS TIME. CALL LIGHT AT HANDS REACH
--- NOTE | 2022-05-01 23:19 | NUR ---
EYES CLOSED, NO C/O PAIN, USING CPAP, CALL LIGHT AND FLUIDS AT HANDS REACH
--- NOTE | 2022-05-02 00:34 | NUR ---
In bed using CPAP, eyes closed, no distress, uses urinal. call light at handsa reach
--- NOTE | 2022-05-02 02:33 | NUR ---
used call light, using CPAP, voided using urinal, coop wtih assessment no changes. emptied own stoma with minimum of assist. JPx3 noc hanges, insertion site pink red, no drainage at thist reno. TF patent clamped.
--- NOTE | 2022-05-02 05:31 | NUR ---
Pt on room air, used CPAP at HS, tolerating well, no sob with exertion, helps with turning and repositioning. Lungs clear bilat. midline abd incision with nichol in place. Old drainage, edges well approx. lower 1 inch of incision slightly gaping, moist center, pink creamy. no drainage noted. abd tender MICHELLE. R stoma patent, pt does own care with minimum of help. MIGUELITO#1 red area around insertion site same as #2 and #3 all with milky thick strong smelling drainage. TF patent, was flushed last night and noted to have slightly yellowish colored mildly thick drainage, no odor. no c/o abd pain when flushed. uses urinal, voiding small frequent amounts QS. IVF infusing w/o problems. SL patent. allevyn to buttocks. uses call light, tolerating liquids well, no emesis, has not c/o pain. alert and oriented, pleasant and cooperative
--- NOTE | 2022-05-02 06:48 | NUR ---
Pt awakes easily, coop wtih labs. Did own stoma care. MIGUELITO #1 drained 60cc milky thick drainage with strong smell. #2 and #3 MIGUELITO with scant amount of milky drainage with strong smell. abd incision w/o chnages. stoma patent. pt voided large amount of urine plus was incontinent chux changed. cooperative, slight redness to scrotum and periarea lotion to area. Allevyn to upper buttocks area
--- NOTE | 2022-05-02 08:01 | NUR ---
PT ASSESSMENT AND MEDICATION ADMINISTRATION COMPLETED. NO INSULIN COVERAGE NEEDED THIS A.M. PT RATES PAIN /. IV FLUIDS RUNNING. PT UP TO CHAIR FOR BREAKFAST.
--- NOTE | 2022-05-02 09:45 | NUR ---
TO PT ROOM TO ASSIST WITH ILEOSTOMY CHANGE. PT WAS ATTEMPTING TO SELF CHANGE AND HAD A CONSIDERABLE LEAK. APPLIANCE AND BAG CHANGED. PT CLEANED AND GOWN CHANGED. IV FLUIDS RUNNING. ASSISTED PT BACK TO BED. CALL LIGHT WITHIN REACH.
--- NOTE | 2022-05-02 11:53 | NUR ---
TO PT ROOM FOR MEDICATION ADMINISTRATION. PT JUST FINISHED PHYSICAL THERAPY. IV FLUIDS RUNNING. PT IS A/O, RESPIRATIONS EVEN AND REGULAR. CALL LIGHT WITHIN REACH. RATES PAIN 7/10. PAIN MEDICATION ADMINISTERED.
--- NOTE | 2022-05-02 13:39 | NUR ---
ROUNDED ON PT. RECONNECTED TO IV FLUIDS AFTER SHOWER. PT IS SITTING IN CHAIR, A/O, RESPIRATIONS EVEN AND REGULAR. FAMILY AT BEDSIDE.
--- NOTE | 2022-05-02 15:17 | NUR ---
PT ASSESSMENT COMPLETED. PT IS IN BED. IV FLUIDS RUNNING. FAMILY AT BEDSIDE. CALL LIGHT WITHIN REACH.
--- NOTE | 2022-05-02 16:49 | NUR ---
TO PT ROOM FOR MEDICATION ADMINISTRATION. PT IS A/O, RESPIRATIONS EVEN AND REGULAR. IV FLUIDS RUNNING. CALL LIGHT WITHIN REACH.
--- NOTE | 2022-05-02 18:13 | NUR ---
ROUNDED ON PT. IV FLUIDS RUNNING. G TUBE FLUSHED NO OUTPUT. MIGUELITO #1 EMPTIED. CALL LIGHT WITHIN REACH.
--- NOTE | 2022-05-02 20:21 | NUR ---
PT WAS MEDICATED PER PAIN AND FEELING NAUSEATED EARLIER. ANXIOUS OVER DI TEST. REASSURED. UP INCHAIR. ON ROOM AIR. CLEAR LUNGS USES IS WHEN REMINDED. ABD MIDLINE INCISION WITH ALEXIA. ABD SLIGHT DISTENTIN AT LOWER ABD. MIGUELITO X1 R LOW ABD AND X2 IN L LOW ABD INSERTION SITE SLIGHTLY RED/PINK/DRY, PRODUCING MILKY THICK STRONG SMELLING DRAINAGE. EMPTIED. R STOMA PATENT PRODUCING SOFT YELLOW BM. PT SL AT THIST RAMOS FOR DI TEST. USING URINAL, VODING QS.
--- NOTE | 2022-05-02 20:42 | NUR ---
down too DI via w/c
--- NOTE | 2022-05-02 21:19 | NUR ---
PT BACK FROM DI. TOLERATED FAIR, STOMA PRODUCING LARGE AMOUNTS OF LIQUID DRAINAGE, EMPTIED AGAIN. JPX3 UNCHANGED. MIDLINE INCISION NO CHANGES. NO FURTHER C/O ABD PAIN OR N/V, TOLERATING LIQUDIS WELL. UP TO BED, HELPED TRANSFER AND REPOSTIONING IN BED. COOPERATIVE, LESS ANXIOUS, EFFORTS PRAISED. CBG 131, NO COVERAGE NEEDED
--- NOTE | 2022-05-02 23:17 | NUR ---
Dr Villatoro called this unit, no information on abd scan yet, Pts fabio Trujillo called this unit, updated on pt. Pt awakes easily, using CPAP, no further c/o pain or n/v. more calmer, stoma patent, cont to have liquidy drainage. pt did own care. emptied. tolerating liquids well, repositions self in bed, using urinal, large amounts of urine. uses call light
--- NOTE | 2022-05-03 00:56 | NUR ---
Using CPAP, no c/o pain or n/v. voiding large amounts of urine, uses urinal. fluids and call light at hands reach. stoma patent draining semi formed yellow bm
--- NOTE | 2022-05-03 02:13 | NUR ---
Using CPAP, resting, used urinal, stoma patent. call light and liquids at hands reach.
--- NOTE | 2022-05-03 03:52 | NUR ---
Using CPAP, no resp distress, calm, turns and repositions self in bed. call light and fluids at bedside
--- NOTE | 2022-05-03 06:33 | NUR ---
Pt on room air during daytime, uses CPAP at HS, toleated well, lungs clear. midline abd incision with nichol healing, except for lower 1 inch of incision. JPx3 with redness around insertion site and decreaesd milky, thick and strong smelling drainage. R stome patent, pt helps doing own stoma emptying. uses urinal. voiding large amounts of urine. IVF infusing RA, tolerating well. Pt went for a CT of his abd/pelvic area, was very anxious, reassured, calmed down and we talked about positive health outcoumes. Dr Villatoro notified a few minutes ago of results. will review when he comes in this am. few minutes ago of results. Pt uses SCDS, tolerating liquids well, no further c/o abd pain or n/v. uses call light, helps with turning and repositioning
--- NOTE | 2022-05-03 07:42 | NUR ---
RECIEVED REPORT FROM [facility] NURSE. PT IS A/O, RESPIRATIONS EVEN AND REGULAR. IV FLUIDS RUNNING. CALL LIGHT WITHIN REACH.
--- NOTE | 2022-05-03 08:20 | NUR ---
PATIENTS MORNING MEDICATIONS GIVEN AND VITALS TAKEN AND DOCUMENTED. NO INSULIN GIVEN PER NORMAL GLUCOSE RANGE. ASSISTED PATIENT IN TRANSFERRING FROM BED TO CHAIR. PATIENT SITTING COMFORTABLY EATING BREAKFAST. NO FURTHER NEEDS AT THIS TIME.
--- NOTE | 2022-05-03 09:46 | NUR ---
ROUNDED ON PT. PT SITTING IN CHAIR. A/O, RESPIRATIONS EVEN AND REGULAR. I/O'S DOCUMENTED. CALL LIGHT WITHIN REACH.
--- NOTE | 2022-05-03 11:15 | NUR ---
PATIENT RETURNED FROM PHYSICAL THERAPY TO CHAIR, IV FLUIDS RUNNING, BEDSIDE URINALS EMPTIED. PATIENT STATES NO FURTHER NEEDS AT THIS TIME.
--- NOTE | 2022-05-03 11:40 | NUR ---
TO PT ROOM FOR MEDICATION ADMINISTRATION BY NURSE IN TRAINING. PT IS SITTING IN CHAIR. A/O, RESPIRATIONS EVEN AND REGULAR. IV FLUIDS RUNNING. CALL LIGHT WITHIN REACH. DENIES NEEDS/COMPLAINTS ATT.
--- NOTE | 2022-05-03 12:48 | NUR ---
PAIN AND NAUSEA MEDICATION GIVEN WELL AFTERNOON VITALS AND I/O'S TAKEN. ASSISTED PATIENT FROM CHAIR TO BED AND NOW RESTING COMFORTABLY . WARM BLANKET GIVEN. CALL LIGHT WITHIN REACH AND BED LOWERED. PATIENT STATES NO FURTHER NEEDS AT THIS TIME
--- NOTE | 2022-05-03 14:25 | NUR ---
ASSISTED PATIENT IN EMPTYING OSTOMY. EMPTIED URINALS. I/O'S AND VITALS RECORDED. PATIENT ASSESSMENT COMPLETED. PATIENT SITTING UPRIGHT IN BED AND TALKING WITH AND FRIEND. CALL LIGHT WITHIN REACH, NO FURTHER NEEDS AT THIS TIME.
--- NOTE | 2022-05-03 16:00 | NUR ---
ROUNDED ON PT. PT A/O, RESPIRATIONS EVEN AND REGULAR. NO COMPLAINTS OR NEEDS ATT. CALL LIGHT WITHIN REACH.
--- NOTE | 2022-05-03 17:14 | NUR ---
EVENING MEDICATIONS GIVEN. ASSISTED PATIENT IN EMPTYING OSTOMY. HELPED PATIENT TO CHAIR FROM BED. ICE PACK APPLIED TO LOWER BACK, IV FLUIDS RUNNING. PATIENT SITTING IN CHAIR WITH CALL LIGHT WITHIN REACH, EATING DINNER. PATIENT STATES NO FURTHER NEEDS AT THIS TIME.
--- NOTE | 2022-05-03 18:38 | NUR ---
ASSISTED PATIENT TO BATHROOM TO BRUSH HIS TEETH AND THEN BACK TO BED. DOCUMENTED I&O'S, VITALS, AND HUNG A NEW BAG OF LR. PATIENT SITTING UP IN BED WATCHING TV WITH CALL LIGHT WITHIN REACH. PATIENT STATES NO FURTHER NEEDS AT THIS TIME.
--- NOTE | 2022-05-03 18:56 | NUR ---
GAVE PATIENT EDUCATION REGARDING DRAINING MIGUELITO DRAINS AT HOME. CHANGED DRESSING ON PEG TUBE AND FLUSHED WITH 100ML OF WATER. CALL LIGHT WITHIN REACH AND PATIENT STATES NO FURTHER NEEDS AT THIS TIME.
--- NOTE | 2022-05-03 20:20 | NUR ---
BEDSIDE REPORT FROM SAD[facility] RN, PT WHITE BOARD UPDATED, CALL LIGHT IN REACH - DENIES NEEDS AT THIS TIME. PT SMILES AND REMEMBERS THIS RN FROM LAST ROTATION! :)
--- NOTE | 2022-05-03 21:53 | NUR ---
cbg 139, no coverage needed. alert and orineted, using CPAP. coop with vitals, emptied own stoma, did well. had some minor problems/dexterity when trying to open/emptying/measuring VALENTIN's. Pt had some concerns about: If he was going to be dc with a fair amouns of med as he wont be able to drive or go to store for a while, RX for gloves he may need when emptying stoma/valentin care. urinals on dc and pads. Instructed that we would notify CM in amd and notify MD, he may be dc with HH services and we could ask about med delivery. informed of home grocery delivery services and [employer] for meal delivery. CM to talk to pt in am to try and resolve his concerns. call light and fresh fluids at bedside
--- NOTE | 2022-05-03 22:30 | NUR ---
PT READY FOR BED, HAD PM MELATONIN, DENIES OTHER NEEDS, CALL LIGHT IN REACH.
--- NOTE | 2022-05-04 01:35 | NUR ---
Pt awakes easily, no distress, using CPAP, used urinals, call light at hands reach
--- NOTE | 2022-05-04 03:03 | NUR ---
IN PT ROOM TO ASSIST BURP OSTOMY BAG OF GAS, PT DEMONSTRATES WELL, URINE 250 ML EMPTIED FROM URINAL.
--- NOTE | 2022-05-04 06:35 | NUR ---
PT ANXIOUS OVER INPENDING DISCHARGE HE HAS IMPROVED, EXPLAIEND TO HIM ABOUT STOMA, MIGUELITO CARE AND URINARY CONTAINERS AT HOME. TO GO SLOW HE WAS VERY ANXIOUS WHILE DOING OWN MIGUELITO AND STOMA CARE. EFFORTS PRAISED, SLOWED DOWN AND DID VERY WELL. CONT TO TRAIN ON STOMA NAD MIGUELITO CARE. MUCH CALMER, RECEPTIVE TO INSTRUCTIONS. USING CPAP, USES CALL LIGHT, FLUIDS AT BEDSIDE.
--- NOTE | 2022-05-04 07:30 | NUR ---
PATIENT RESTING QUIETLY IN BED ON HIS CPAP, RESPIRATIONS ARE REGULAR AND EVEN, EYES CLOSED, CALL LIGHT IN REACH. PATIENT HAS NO NURSE CARE NEEDS AT THIS TIME.
--- NOTE | 2022-05-04 09:10 | NUR ---
THIS RN IN TO SEE PATIENT AND DENIES THE NEED FOR PAIN OR NAUSEA MEDS AT THIS TIME. PATIENT UP IN THE BEDSIDE ARMCHAIR FINISHING BREAKFAST. TRY REMOVED AND ATE 90%. AM ASSESSMENT COMPLETE. PATIENT HAS MILKY FLUID DRAINING FORM ALL MIGUELITO'S. GREEN DRAINAGE FROM OSTOMY. SMALL SPOT OF MILKY DRAINAGE AROUND THE BOTTOM OF PAIENT'S MIDLINE INCISION. HERE TO SEE PATIENT AND INFORMED OF THE MILKY DRAINAGE ON INCISION AND FROM THE 3 MIGUELITO DRAINS. VERBALIZED UNDERSTANDING. THIS RN ALSO TALKED WITH AND PATIENT DID WELL THAT PATIENT IS WORRIED ABOUT BEING ABLE TO CARE FOR HIS DRAINS AND OSTOMY AT HOME ON HIS OWN. PATIENT HAS DEXTERITY PROBLEMS WITH TRYING TO EMPTY MIGUELITO'S AND OSTOMY. IS RECOMMEDING A SNF AGAIN AT THIS TIME FOR PATIENT TO GET [facility]. CALL LIGHT IS IN REACH AND PATIENT HAS TAKEN ALL HIS AM MEDS. PATIENT HAS NO NURSE CARE NEEDS AT THIS TIME.
--- NOTE | 2022-05-04 09:45 | NUR ---
PER DR. PRO PATIENT WILL NEED HALFWAY PLACEMENT UNTIL HE IS ABLE TO MANAGE HIS DRAINS INDEPENDENTLY. CALL PLACED TO [facility] IN [place], AGAIN NO ANSWER AND MESSAGE LEFT. MESSAGE LEFT FOR ZARI ADMISSIONS AT [facility] IN [facility].
--- NOTE | 2022-05-04 10:50 | NUR ---
INTO SPEAK WITH PATIENT, PATIENT SITTING IN CHAIR AFTER WALK WITH PT. EXPLAINED DR. HUSTON CONCERNS WITH OSTOMY CARE AND DRAIN CARE THAT WOULD REQUIRE PLACEMENT. PATIENT STATES "THEY ARE TEACHING ME HOW TO DO IT. I THINK I WOULD PREFER TO DISCHARGE HOME STILL." ADVISED AT THIS TIME DR. PRO FEELS HE IS UNABLE TO MANAGE HIS DRAINS AT HOME AND NEEDS PLACEMENT. PATIENT VISABLY SADDENED BUT AGREES. I ADVISED THAT I HAVE REACHED OUT TO HIS PREVIOUSLY CHOSEN PLACEMENT OPTIONS AND WILL UPDATE HIM WITH ANY INFORMATION BHANU.
--- NOTE | 2022-05-04 11:32 | NUR ---
KERRY HAS TALKED WITH PATIENT AND HAS INFORMED HIM OF 'S INTENTION FOR HIM TO GO TO A SNF AGAIN. LUZ RN FROM [facility]YS THE PATIENT VERBALIZED UNDERSTANDING AND HE HAS MIXED EN MOTIONS ABOUT THIS IDEA. THIS RN WILL BE DOWN TO TALK WITH PATIENT ABOUT THIS DECISION.
--- NOTE | 2022-05-04 11:48 | NUR ---
THIS RN IN TO SEE PATIENT AND GAVE SCHEDULED MEDS. PATIENT REQUIRED NO SS INSULIN FOR LUNCH. PATIENT'S LUNCH SET UP FOR HIM AND IV SL AT THIS TIME AND IV FLUIDS TAKEN DOWN. PATIENT'S CALL LIGHT IS IN REACH. ICE WATER REFILLED. PATIENT SAYS, "IN MANY WAYS I DID FEEL MORE COMFORTABLE GOING TO A CARE FACILITY." PATIENT OK AT THE MOMENT GOING TO A SNF. NO OTHER CARE NEEDS NOTED AT THIS TIME.
--- NOTE | 2022-05-04 12:03 | NUR ---
SPOKE WITH ZARI ADMISSIONS AT [facility]. THEY DO HAVE BED SAPCE AVAILABLE AND ARE WILLING TO REVIEW THE PATIENT CHART. CHART FAXED TO [phone].
--- NOTE | 2022-05-04 13:34 | NUR ---
PATIENT'S ARJO BED IS MALFUNCTIONING, SO THE BED HAS BEEN CHANGED OUT AND PATIENT IS RESTING QUIETLY IN BED AT THIS TIME. CALL LIGHT IN REACH. PATIENT HAS NO NURSE CARE NEEDS AT THIS TIME.
--- NOTE | 2022-05-04 15:11 | NUR ---
THIS RN IN WITH SYLVIA OLIVO. AFTERNOON ASSESSMENT COMPLETE. ALL MIGUELITO'S STILL DRAINING MILKY DRAINAGE AND OSTOMY STILL PUTTING OUT GREEN DRAINAGE. VS STABLE AND I+O COMPLETED. PATIENT'S VISITING WITH PATIENT AT THIS TIME AND DENIES ANY CARE NEEDS AT THIS TIME. CALL LIGHT IS IN REACH AND BED IN LOW POSITION.
--- NOTE | 2022-05-04 15:45 | NUR ---
RECVD CALL FROM DR. RPO TO SEE IF THERE WAS ANY UPDATE ON PLACEMENT- NO UPDATE AT THIS TIME. LEFT MESSAGE FOR ZARI IN ADMISSION AT [facility] REGARDING CHART REVIEW AND PLACEMENT.
--- NOTE | 2022-05-04 16:47 | NUR ---
THIS RN IN TO SEE PATIENT. SCHEDULED MEDS GIVEN AND 1UNIT SS INSULIN COVERAGE. THIS RN 1P STANDBY ASSIST PATIENT WITH HIS CANE TO THE BEDSIDE ARMCHAIR AND SET HIM UP FOR DINNER TO ARRIVE. URINAL EMPTIED AND ICE WATER REFILLED. WARM BLANKETS GIVEN TO SHOULDERS AND LAP. PATIENT DENIED ANY OTHER CARE NEEDS AT THIS TIME. WATCHING TV AND CALL LIGHT IS IN REACH.
--- NOTE | 2022-05-04 19:39 | NUR ---
REPORT RECEIVED FROM DAY SHIFT RN. PT LYING IN BED ALERT AND ORIENTED. REPORTS BACK PAIN IMPROVING. DENIES NEEDS AT THIS TIME. WHITE BOARD UPDATED. CALL LIGHT IN REACH.
--- NOTE | 2022-05-04 20:41 | NUR ---
EVENING ASSESSMENT COMPLETE. SCHEDULED MEDS ADMIN PER EMAR. PRN FOR RIGHT SIDE AND BACK PAIN ADMIN PER EMAR. PRN FOR SLEEP GIVEN WELL PER REQUEST. VS AND I&O COMPLETE. MIDLINE ABD INCSION WITH SOME ALEXIA INTACT. DISTAL END OF INCISION OPEN WITH MILKY DRAINAGE. G-TUBE FLUSHED WITH 50 ML TAP WATER. MIGUELITO X 3 WITH SCANT AMOUNT MILKY FOUL SMELLING DRAINAGE. OSTOMY PATENT WITH GREEN DRAINAGE. BOWEL TONES ACTIVE. RIGHT SIDE ABD FIRM AND DISTENDED. PT DENIES NAUSEA. SCD'S IN PLACE. HOME CPAP IN REACH. PT DENIES FURTHER NEEDS AT THIS TIME. CALL LIGHT IN REACH.
--- NOTE | 2022-05-04 23:43 | NUR ---
PT AWAKE. HOME CPAP IN [place]CE USING URINAL. STATES "I'M FEELING PRETTY GOOD RIGHT NOW." DENIES NEEDS.
--- NOTE | 2022-05-05 02:00 | NUR ---
ANSWERED CALL LIGHT. PATIENT EMPTIED THE OSTOMY. THIS HADOOP APPLICATION DEVELOPER EMPTIED THE URINAL. ICE WATER REFILLED. WHITE BOARD UPDATED. PATIENT DENIES FURTHER NEEDS OR CARE AT THIS TIME.
--- NOTE | 2022-05-05 03:58 | NUR ---
call light answered. refilled water to the cpap. ice water refilled. no other nees at this time.
--- NOTE | 2022-05-05 06:52 | NUR ---
V/S AND I&O'S TAKEN AND CHARTED. SHAR ZHU DEMONSTRATED TO SHAR KIM CHANGED THE OSTOMY APPLIANCE. CHANGED GOWN AND WHITE CHUX. GARBAGES PICKED UP. EMPTIED JPX3.
--- NOTE | 2022-05-05 07:09 | NUR ---
VS AND I&O COMPLETE. SCHEDULED MEDS ADMIN PER EMAR. PT DENIES PAIN OR NAUSEA. OSTOMY APPLIANCE LEAKING. FACING END TRIMMER IN TO PLACE NEW APPLIANCE. IV DC'D IN RIGHT AC PER PT REQUEST. TIP INTACT. NO FURTHER NEEDS. CALL LIGHT IN REACH.
--- NOTE | 2022-05-05 07:26 | NUR ---
THIS RN RECEIVED SHIFT REPORT FROM SHAR COMBS. PATIENT RESTING QUIETLY SUPINE WITH CPAP ON, RESPIRATIONS ARE REGULAR AND EVEN, EYES CLOSED, AND CALL LIGHT IS IN REACH. PATIENT HAS NO NURSE CARE NEEDS AT THIS TIME.
--- NOTE | 2022-05-05 08:29 | NUR ---
Spoke with Dr. Hernandez and received update. Pt remains unable to empty drains and change ostomy. He feels placement is best until pt can care for himself. Let him know issue with placement is most SNF's do not accept his insurance. had notified me she spoke with Merle at the [facility] and her insurance. They are in network. I have attempted to contact them multiple times last week and sent a chart with no response. I will try again today. Called Merle at the [facility] and spoke with the concierge receptionist. UPdated I have been attempting to contact them. She states they do not currently have an admission person, she will try to find someone I can speak with. I was able to speak with Renetta. She asks I send a chart and I let her know I did last week. She will review the chart. She is not sure if they contract with his insurance. She also states pt would only have 20 day stay with his insurance. If he requires termite control servicer he would need [place]. She is unsure if they would be able to take this pt. She will get back to me. Received call from Susan at [facility]. She states they do not contract with his insurance.
--- NOTE | 2022-05-05 09:03 | NUR ---
PT AMBULATED APPROX 10 FT FROM BED TO CHAIR W/STBY ASSIST WHILE HE USED HIS CANE. PT HAD NO HANDS ON ASSISTANCE. STEADY ON FEET, NO COMPLAINTS OF PAIN OR DISCOMFORT. THIS CNA2 PERFORMED A FULL LINEN CHANGE ON PT BED. URINAL EMPTIED. SIDE TABLES SET UP AROUND PT W/BELONGINGS. PT STATED HE WOULD LIKE A SHOWER LATER IN THE DAY. NO OTHER REQUESTS AT THIS TIME. CALL LIGHT IN REACH.
--- NOTE | 2022-05-05 09:32 | NUR ---
PT VITALS TAKEN/DOCUMENTED ALONG W/I&O'S. PT WAS ABLE TO EMPTY MIGUELITO DRAINS CORRECTLY W/NO HELP (OTHER THAN TO MEASURE/DISCARD). PT ALSO EMPTIED OSTOMY. PT SITTING UP IN CHAIR FACING WINDOW W/TABLES & BELONGINGS CLOSE. CALL LIGHT IN REACH.
--- NOTE | 2022-05-05 11:01 | NUR ---
PATIENT CALLED HAVING 9/10 ABD PAIN AND NAUSEA AFTER PT. ONE PO PAIN PILL AND SCHEDULED MED GIVEN AND 4MG SIVP ZODFRAN GIVEN. PATIENT VISITING WITH HIS AND PATIENT DENIES ANY OTHER CARE NEEDS AT THIS TIME. CALL LIGHT IS IN REACH.
--- NOTE | 2022-05-05 12:16 | NUR ---
Received a message from Lou Bloom at the [facility], they do not accept this pts insurance and will not accept this pt.
--- NOTE | 2022-05-05 12:20 | NUR ---
Spoke with both Dr. Hernandez and Dr. Delgado. Updated, Merle at the [facility] have declined this pt. All SNFs in our area do not take his insurance, except for [facility]. They declined this pt last week as they did not feel he was skillable and would not accept him. Dr Hernandez states pt is capable of going home with HH and will go and speak with him. Dr. Delgado is in agreement. I let them know, I was not sure when HH can admit him now as it has been pushed back several times. Dr. Hernandez to speak with pt. I called Shira at [facility] and she states she shredded the paperwork yesterday. They could admit this pt tomorrow, if I can resend the papers today. Chart refaxed to Shira with updated notes. Rx obtained for a walker and will send to [facility] when notes are entered stating need.
--- NOTE | 2022-05-05 12:37 | NUR ---
CHECKED IN ON PT-HE IS SITTING IN CHAIR VISITING WITH HIS KARLO. HE IS ALERT, ORIENTED AND ALWAYS PLEASANT. LET THEM VISIT, GAVE BLELINDY AND DanielaPOST WILL FOLLOW
--- NOTE | 2022-05-05 12:50 | NUR ---
THIS RN IN TO SEE PATIENT AND GIVE HIM SCHEDULED MED. AND CM TALKING WITH PATIENT AND PLAN TO HOPEFULLY DC TO HOME TOMORROW WITH HOME HEALTH. PATIENT IS ONBOARD WITH THIS PLAN AT THIS TIME IS HIS WHO IS IN THE ROOM. PATIENT PAIN IS DOWN TO 6/10 AND HE IS COMFORTABLE AND HIS NAUSEA IS GONE. PATIENT REQUESTING A DIETERY CONSULT FOR DIABETES AND FOODS TO USE WITH OSTOMY. GAVE THIS RN A VERBAL ORDER FOR THIS AND IT WAS PLACED. PLAN TO BE GOING HOME VIA CAB. CALL LIGHT IS IN REACH.
[2022-05-05] MEDS ORDERED: AMOX TR-K CLV1 EACH PO (12:59)
[2022-05-05] MEDS ORDERED: LEVOFLOXACIN500 MG PO (13:00)
[2022-05-05] MEDS ORDERED: FLUCONAZOLE200 MG PO (13:00)
[2022-05-05] MEDS ORDERED: OXYCODON-ACETA1 EAC2 PO (13:01)
[2022-05-05] MEDS ORDERED: FERROUS SULFAT325 M2 PO (13:01)
[2022-05-05] MEDS ORDERED: PANTOPRAZOLE SO40 MG PO (13:02)
[2022-05-05] MEDS ORDERED: MULTI VITAMIN1 EACH PO (13:03)
--- NOTE | 2022-05-05 14:37 | NUR ---
CONSULT RECEIVED FOR PATIENT EDUCATION ON OSTOMY AND DIABETES NUTRITION. PATIENT IS ABOUT 5 WEEKS POST SUBTOTAL COLECTOMY WITH ILEOSTOMY. HE IS TOLERATING FOODS WELL. HE STILL PREFERS GLUTEN-FREE, VEGETARIAN DIET WITH ALMOND MILK. I PROVIDED HIM A HANDOUT FROM [facility] ON ILEOSTOMY NUTRITION THERAPY. HIS MAIN QUESTION IS CAN HE EAT FOODS THAT CONTAIN FIBER? I SAID HE CAN BUT ADD FOODS WITH FIBER GRADUALLY. AND TO BE AWARE OF FOODS THAT CAN CAUSE BLOCKAGE IF NOT CHEWED WELL. I REMINDED HIM TO EAT SMALL MEALS OR SNACKS EVERY 2-4 HOURS WHICH IS GOOD FOR DIABETES MANAGEMENT, TOO. I REMINDED HIM TO KEEP HIS PORTIONS OF GRAINS SUCH QUINOA, RICE, OR OATS TO 1/2 CUP OR SO INSTEAD OF A LARGE AMOUNT TO HELP CONTROL CARBOHYDRATES. I PROVIDED HIM A LIST OF LOW CARB SNACKS. HE APPRECIATED THE INFO. HE IS CONSCIOUS OF HIS DIET AND SHOULD DO WELL AT HOME. MY NAME AND OFFICE # PROVIDED IN CASE QUESTIONS ARISE IN THE FUTURE.
--- NOTE | 2022-05-05 14:37 | NUR ---
PATIENT'S PAIN REMAINS IN CONTROL AT 6/10 AND NAUSEA REMAINS GONE. THIS RN VISUALIZED PATIENT IS DOING A GREAT JOB EMPTYING HI OSTOMY AND MIGUELITO DRAINS. PATIENT JUST RESTING UP IN THE BEDSIDE ARMCHAIR STILL AT THIS TIME. PATIENT HAS NO NURSE CARE NEEDS AT THIS TIME. CALL LIGHT IS IN REACH.
--- NOTE | 2022-05-05 15:00 | NUR ---
Faxed RX to [facility] for walker. Asked if they could deliver by tomorrow at 1030 as pt needs to be home by 11:00 for HH admission. [facility] states no problem.
--- NOTE | 2022-05-05 16:12 | NUR ---
ASSISTED PT IN AMBULATING TO THE SHOWER FROM THE CHAIR. PT IS A STBY W/CANE. PT IS STEADY ON FEET. PT OSTOMY/IV WERE COVERED W/PLASTIC & FOAM TAPE. SHOWER CHAIR WAS USED IN ASSISTING W/SHOWER. PT WAS ABLE TO CLEAN HIMSELF W/RAGS & SOAP/SHAMPOO WHILE THIS CNA2 HELD THE WATER FOR HIM. PT PERFORMED NOÉ CARE, HAIR WASHED, FACE WASHED, TEETH BRUSHED, ORAL RINSE USED, HAIR COMBED. NEW GOWN/SOCKS APPLIED, LINENS ON CHAIR CHANGED. PT AMBULATED BACK TO CHAIR W/FEET RECLINED. THIS CNA2 THEN FILLED HIS WATER, GOT ICE PACK FOR HIS BACK & TWO WARM BLANKETS. PT IS RESTING COMFORTABLY IN CHAIR WATCHING TV. NO OTHER REQUESTS AT THIS TIME. CALL LIGHT & BELONGINGS ON TABLES NEXT TO HIM.
--- NOTE | 2022-05-05 17:06 | NUR ---
THIS RN WAS INTO SEE PATIENT RIGHT AFTER LEFT FROM TALKING WITH PATIENT ABOUT DC PLANNING TOMORROW. PATIENT FEELING MUCH BETTER AFTER A SHOWER AND DENIES ANY PAIN OR NAUSEA AT THIS TIME. THIS RN OFFERED TO GIVE PATIENT A SHAVE, BUT PATIENT SAYS HE WILL TAKE CARE OF THAT AFTER HE GETS HOME. PATIENT AWAITING DINNER TO ARRIVE. PATIENT HAS NO OTHER CARE NEEDS AT THIS TIME. CALL LIGHT IS IN REACH.
--- NOTE | 2022-05-05 19:38 | NUR ---
REPORT RECEIVED FROM DAY SHIFT RN. PT LYING IN BED ALERT AND ORIENTED. URINAL EMPTIED. DENIES NEEDS. WHITE BOARD UPDATED. CALL LIGHT IN REACH.
--- NOTE | 2022-05-05 22:29 | NUR ---
EVENING ASSESSMENT COMPLETE. SCHEDULED MEDS ADMIN PER EMAR. PRN FOR SLEEP GIVEN. PT REPORTS 5/10 ABD PAIN AND NAUSEA. PRN FOR PAIN AND N/V GIVEN PER ORDER. MIDLINE INCISION WITH ALEXIA INTACT. DISTAL END OPEN WITH MILKY DRAINAGE. G-TUBE FLUSHED WITH TAP WATER. MIGUELITO X 3 WITH MILKY DRAINAGE. OSTOMY PATENT. HOME CPAP IN PLACE. PT DENIES QUESTIONS OR CONCERNS. CALL LIGHT IN REACH.
--- NOTE | 2022-05-06 01:04 | NUR ---
PT RESTING IN BED WITH EYES CLOSED. RESPIRATIONS EVEN. CPAP IN PLACE. CALL LIGHT IN REACH.
--- NOTE | 2022-05-06 03:31 | NUR ---
PT RESTING IN BED WITH EYES CLOSED. AWAKENS BRIEFLY WHEN OPENING DOOR. DENIES NEEDS. CALL LIGHT IN REACH.
--- NOTE | 2022-05-06 05:25 | NUR ---
VS AND I&O COMPLETE. OSTOMY APPLIANCE LEAKING. APPLIANCE CHANGED. PT UP TO SIDE OF BED FOR SKIN CARE AND LINEN CHANGE. BACK TO BED. REPORTS ABD PAIN 01/30. DOES NOT WANT PRN FOR PAIN AT THIS TIME, WOULD LIKE TO WAIT CLOSER TO DISCHARGE. NO FURTHER NEEDS AT THIS TIME. CALL LIGHT IN REACH.
--- NOTE | 2022-05-06 06:46 | NUR ---
SCHEDULED MEDS ADMIN PER EMAR. PT REPORTS ABD PAIN AND NAUSEA. PRN FOR PAIN AND N/V ADMIN PER EMAR. URINALS EMPTIED. NO FURTHER NEEDS.
--- NOTE | 2022-05-06 07:08 | NUR ---
Report from SHAR Chiu. Patient awake in his room. Denies needs at this time. Call light in reach. Bed rails up X2.
--- NOTE | 2022-05-06 07:32 | NUR ---
PT IN BED W CPOX MACHINE ON. PT SELF EMPTIED OSTOMY AND REMINDED TO CHECK EVERY 30 MINUTES TO SEE IF NEEDED TO BE EMPTIED. PT AGREED. FRESH ICE WATER GIVEN. NO FURTHER NEEDS CALL LIGHT WITHIN REACH.
--- NOTE | 2022-05-06 08:35 | NUR ---
Called and spoke with Claire at [facility]. Asked if they will be able to deliver pts walker by 1030. Civilian Technician has not left yet, but states it will be close. [facility] asked what time she plans on seeing pt today as I do not want to dc him without a walker. She states her plans have changed and she will not see pt until 12 or 12:30. In and spoke with Wilfrid and lizbeth.
--- NOTE | 2022-05-06 09:30 | NUR ---
Updated lost charge card clerk in 9:30 meeting, pt cannot leave until walker arrives. Pt will dc by taxi as family cannot drive him.
--- NOTE | 2022-05-06 09:49 | NUR ---
IS AND OS TAKEN. PT DRESSED AND READY FOR DC. RN NOTIFIED. CALL LIGHT WITHIN REACH.
--- NOTE | 2022-05-06 10:42 | NUR ---
PT SITTING IN CHAIR, ON PHONE. WILL CHECK BACK
--- NOTE | 2022-05-06 11:40 | NUR ---
Micha arrived from [facility] from [facility]. Staff aware.
--- NOTE | 2022-05-06 13:17 | NUR ---
RN'S ROBIN AND XAVI IN WITH PT GETTING READY TO DC HOME. GAVE PT BLESSING AND ENCOURAGEMENT. PT THANKED ME AND WAVED. WILL FOLLOW NEEDED
--- NOTE | 2022-05-06 13:30 | NUR ---
Call from Meg at [facility], she states pt fell getting out of the taxi. Required son to help he stand and get into the house. She does not feel pt can care for self at home and would like pt placed in SNF. UPdated I have called every SNF in 100 mile radius and all have declined this pt. I asked if pt was hurt when he fell and she denies. States pt is weak. Wanting to know if pt can go to ER in [place] for placement into SNF there. Let her know All 3 SNFs in [place] declined this pt due to his insurance. SNF in [place] Declined as they said he was not skillable as he could walk with a cane. Pt may go to [place] [facility], but I do not think they will admit him. Meg states she is holding to speak with [facility] [employer]. Let her know I will call [facility] and check if they will consider taking this pt as he fell. Called and left a message for Luz Elena asking if they would reconsider accepting this pt as he fell at home and HH Rn does not feel he is safe at home as he is weak.
--- NOTE | 2022-05-06 15:40 | NUR ---
Call from disease case manager rn from [facility]. Wanting to know how she can assist. Updated all SNFs in our area declined this pt due to insurance or felt he was not skillable as he could walk with a walker and then progressed to a cane. Pt was able to walk yesterday for 6 minutes with PT. She states [facility] in network. Let her know I sent the chart to them 2 times in the last 37 days and pt was declined each time. I spoke with them today, they will not be accepting pts for "weeks" due to staffing. I asked how she is going to help their pt. She states she understands why pt was not considered skillable if he can walk with a cane. She will call the family and discuss with them. Let her know, [facility] may consider taking, I have a phone call into them, but have not received a return call.
--- NOTE | 2022-05-07 11:31 | NUR ---
REQUEST TO SEE IF PATIENT CAN BE ADMITTED TO SNF. PATIENT WAS DISCHARGED HOME AND NOW FEELS HE CANNOT HANDLE HIS CARE. PLACEMENT WAS ATTEMPTED FOR SOMETIME BEFORE DISCHARGE, PATIENT WAS TURNED DOWN BY ALL REFERRALS. MANY DO NOT ACCEPT HIS [employer] INSURANCE. SOMEONE FROM HIS INSURANCE GAVE TWO POSSIBLE PLACES YESTERDAY TO TRY IN [place]. [facility] [phone] (FAX [phone]). FAXED CHART TO THEM WITH CONFIRMATION RECEIVED. CALLED AND SPOKE WITH ADMISSIONS. THEY STATE THEY RECEIVED THE CHART, BUT THEY ARE NOT ACCEPTING [employer] INSURANCE AT THIS TIME DUE TO MULTIPLE LEONARDO UNPAID. THE OTHER IS [facility] [phone] (FAX [phone]). FAXED CHART WITH CONFIRMAITON RECEIVED. CALLED AND SPOKE WITH CORRINE WHO TRANSFERRED ME TO [facility], SPOKE WITH ADELINA WHO STATES SHE DOES NOT THINK THEY TAKE [employer]. CONFIRMED FAX NUMBER AND THAT I SENT CHART. SHE STATES SHE WILL LOOK AT CHART AND CALL US.
--- NOTE | 2022-05-07 13:19 | NUR ---
SPOKE WITH PATIENTS AND PATIENT BY PHONE [phone]. THEY STATE IS DOING BETTER TODAY. STILL FEELING WEAK BUT IS EATING, USING HIS WALKER 100% OF THE TIME AND GETTING AROUND THE HOUSE OK. STATE THE HOME HEALTH NURSE CAME OUT TODAY AGAIN AFTER ADMITTING YESTERDAY AND HE DOES NOT HAVE ANY INJURY FROM THE FALL YESTERDAY AT THE [employer]AX[employer]. I DISCUSSED WITH THEM THE RISK OF UNEVEN OR DIFFERENT TEXTURES OF GROUND, LOOSE RUGS, ITEMS ON FLOOR OR PETS BEING FALL RISK. SHE STATES HE IS NOT GOING OUTSIDE FOR NOW AND UNDERSTANDS ABOUT THE FLOOR. DISCUSSED THE TWO SNF NAMES GIVEN TO US BY THEIR INSURANCE TO TRY. DISCUSSED THAT JANET IS NOT TAKING PATIENTS WITH [employer] ANYMORE AND THAT [facility] IS STILL REVIEWING CHART. ASKED IF THERE WAS ANYWHERE ELSE THAT THEY THOUGHT TO LOOK AT, SHE THOUGHT MAYBE SOMETHING IN [place] WHERE THEIR DAUGHTER LIVES. SHE STATES SHE WILL ASK HER DAUGHTER SHE IS A HEALTH WORKER DOWN THERE AND MIGHT HAVE SUGGESTIONS. THEY ARE PLANNING TO CALL PCP AND DR PRO OFFICE WEDNESDAY FOR APPOINTMENTS AND KNOW TO CALL THE HOME HEALTH NURSE WITH ISSUES. SHE STATES THEY FEEL REAL GOOD WITH HAVING THEM TO CALL. NO OTHER QUESTIONS AT THIS TIME. DISCUSSED I WILL CALL THEM WITH ANY UPDATES.
--- NOTE | 2022-05-11 18:14 | DS ---
[facility] [address], [place] [address] Signed ADMISSION DATE: 03/30/2022 DISCHARGE DATE: 05/06/2022 REASON FOR ADMISSION: Systemic sepsis and dilated colon consistent with toxic megacolon. HISTORY OF PRESENT ILLNESS: This 66-year-old white man was reasonably well up until the day before admission where he began having abdominal pain and distention including cramping, nausea and vomiting, but no diarrhea. Has no underlying history of ulcerative colitis or Crohn disease, but does have diverticular disease from the past. He was found to have diminished urination, some loose stool and increasing abdominal pain and presented to the emergency room where he was evaluated by Dr. Mart and ultimately Dr. Jin and was found to have a white count of greater than 30,000 with 50% band forms and elevated creatinine and CT scans finding notable for colonic dilation with a transition point in the sigmoid area. There is no sign of free air or actual perforation or abscess. Clinical findings are consistent with acute toxic megacolon. PHYSICAL EXAMINATION: At time of admission showed. GENERAL: A toxic appearing white man, accompanied by his son. VITAL SIGNS: Heart rate was 122, blood pressure 70 systolic, norepinephrine drip is infusing at 12 mcg/kg per minute. O2 saturation 93% on 2 L nasal cannula. Trachea is midline. There is no jugular venous distention. CHEST AND TORSO: Mottled. ABDOMEN: Diffusely tender, but not markedly so. He did not have generalized peritonitis. LOWER EXTREMITIES: Minimal cyanosis. LABORATORY STUDIES: White count 33.3, hematocrit 61.7, platelets 276,000, and band forms 51%. Chem profile showed a bicarb of 13, potassium 5.7, creatinine 2.84, glucose 203. Lactic acid 4.4. Liver enzymes not obtained. COVID serology negative. Urinalysis showed cloudy urine, 2-3 white cells per high-power field. CT scan images showed a proximal and mid colon with fluid-filled and distended up to 7.5 cm on the right and 5 cm on the left. Narrowing at the sigmoid and trace fluid adjacent to several small diverticula. HOSPITAL COURSE: He was admitted by Dr. Jin and given aggressive fluid resuscitation. Surgical consultation was undertaken with me. The patient initially had improvement of his creatinine and potassium. Broad-spectrum antibiotics were administered. He had Electronically Signed By: MICHAEL PRO MD 05/11/22 1814 PATIENT NAME: DAVID POTTS DISCHARGE SUMMARY DATE OF : 57 REPORT #: [id number] PHYSICIAN: MICHAEL PRO MD PCP: Tristan Carrera DO REPORT IS CONFIDENTIAL AND NOT TO BE RELEASED WITHOUT AUTHORIZATION [facility] [address], [place] [address] Signed improvement of his white count to 23.7 with 15% band forms and creatinine improved to 3.38. Requirement for central line was identified and he underwent ultrasound assisted right internal jugular venous catheter placement by me on 03/30/2022. EKG ruled out findings of myocardial infarction. Though he had initial improvement, he had persisting never required for pressor agent, norepinephrine, and on that basis, a recommendation was made for emergency subtotal colectomy with ileostomy. On March 31, 2022, he underwent exploration of the abdomen, a subtotal colectomy with end ileostomy and formation of rectal stump as well as placement of a Kelsea gastrostomy and splenic flexure mobilization. A horrific odor was noted to the colon as it was essentially completely infarcted though, strangely, not perforated. His significant acidosis (pH 7.12), improved with fluid administration, though he still required pressor agents to maintain adequate systolic blood pressure and urine output. He required 32 mcg/minute and the highest requirement. He was maintained on the ventilator and hyperventilated to improve his acidosis which was effective. Ileostomy site itself by 04/02 did appear ischemic no doubt related to ongoing requirement of norepinephrine despite aggressive fluid resuscitation. Bedside ileoscopy was performed which showed mild ischemic changes without sign of infarction of the ilium extending to approximately 12-14 cm. This was performed on April 02, 2022. Concerns regarding splanchnic vasoconstriction related to ongoing use of norepinephrine was identified and ultimately it was weaned off completely. He was ultimately extubated on April 03, 2022. He had generalized abdominal tenderness and broad-spectrum antibiotics were maintained. He was noted to develop thrombocytopenia and was considered likely to have a drug-induced thrombocytopenia for which the antibiotics were withdrawn. TPN was initiated through the central line and clinical symptoms and signs of sepsis seem to have resolved. He had progressive improvement other than the thrombocytopenia. His G-tube was used to decompress the stomach while waiting bowel function. Liquid stool that was somewhat bloody was noted in the ileostomy appliance. He was able to be transferred to the regular nursing floor noting an increase of his platelet count after cessation of Levaquin antibiotic. He transitioned to the regular nursing floor on April 08, 2022, He was noted to have tolerated the TPN well. Creatinine was decreasing well. Sellers was discontinued in the ostomy admitting thin somewhat bloody fluid. Foul odor was noted from the G-tube and also from the ileostomy. He developed increasing abdominal pain. He began to have nausea, though he had tolerated food well previous to that. By April 11, 2022, he had findings of hypotension with a systolic blood pressure in the range of 74. He did have abdominal tenderness which was not significantly worsened compared to previously. His potassium elevated to 7.2 with a creatinine elevated to 2.6 and was transferred to the intensive care unit once again. He declined overnight manifesting hyperkalemia. Replacement of the right internal jugular central venous catheter with a left subclavian catheter was undertaken on the Electronically Signed By: MICHAEL PRO MD 05/11/22 1814 PATIENT NAME: DAVID POTTS DISCHARGE SUMMARY DATE OF : 57 REPORT #: [id number] PHYSICIAN: MICHAEL PRO MD PCP: Tristan Carrera DO REPORT IS CONFIDENTIAL AND NOT TO BE RELEASED WITHOUT AUTHORIZATION [facility] [address], [place] [address] Signed possibility that he had line sepsis (subsequently found not to be the case). He had a benign abdominal examination overall. A CT scan was performed with GI contrast showing two intraabdominal fluid collections on the left and right side with strong suspicion for abscess. Given the findings and persistent hypotension and foul odor from the ileostomy with compromised vascularity and the gastrostomy tube itself and with increasing hypotension and need for pressor support once again, he underwent reexploration of the abdomen on April 11, 2022. He was found to have total liquefactive necrosis of two segments of small bowel in the mid jejunum and terminal ileum. Intraabdominal abscess fluid was also noted in an impressively foul odor to the intraabdominal contents noted. The operation included exploration of the abdomen, drainage of intra-abdominal abscesses with extensive peritoneal irrigation and placement of drains as well as segmental small bowel resection x2, end ileostomy and a [id number] functional enteroenterostomy. Three drains were additionally placed. The patient required not only [place]-Synephrine is a pressor agent, but also epinephrine during the course of operation. The adverse effect of splanchnic blood flow could be visibly observed during the course of operation and at formation of the ileostomy showing progressively dusky small bowel. Post operatively in the ICU and while on the ventiliator, he was weaned off the epinephrine drip and phenylephrine was maintained at low dose. He underwent transfusion of 2 units of red cells as well as albumin intravenously administered. His acidosis resolved and lactic acid improved from greater than 10+ and down to 4. The ileostomy itself had a cyanotic appearance, extremely alarming for the adverse effects of the pressor agent. Cessation of all pressor agents was undertaken in the late hours of April 12, 2022. By morning, the ostomy was pink and viable with thin green effluent. The G-tube had no odor and effluent was light green as well. The patient had much improvement, was extubated without further incident and began a long course of recovery. The patient had progressive recovery was maintained on broad-spectrum antibiotics. Cultures showed E coli and Pseudomonas in light amount of yeast. He is also noted to have Enterococcus faecalis. He had progressive improvement and was able to ultimately began liquid diet and advanced ultimately to a solid diet. Episodic nutritional support was provided with TPN. His drains initially had serosanguineous fluid, but ultimately the left pelvic drain began draining an opaque mucopurulent discharge without evidence of actual bile. The other two drains (right pericolic and left paracolic) showed only serous fluid. Despite this, he had progressive improvement. The culture results confirmed Pseudomonas aeruginosa, Enterococcus faecium, and Dixie krusei. He was Electronically Signed By: MICHAEL PRO MD 05/11/22 1814 PATIENT NAME: DAVID POTTS DISCHARGE SUMMARY DATE OF : 57 REPORT #: [id number] PHYSICIAN: MICHAEL PRO MD PCP: Tristan Carrera DO REPORT IS CONFIDENTIAL AND NOT TO BE RELEASED WITHOUT AUTHORIZATION [facility] [address], [place] [address] Signed maintained on antibiotics covering those pathogens. The patient ultimately had mucopurulent drainage for all three drains. A CT scan with IV and GI contrast was undertaken which showed several loculated fluid collections in the abdominal cavity, some with air bubbles and certainly problematic for intraabdominal abscess. The drains were draining noxious appearing fluid; they were Gram stain and culture showing only white cells and rare gram negative rods. As he had clinical improvement and the hazard of return to the OR in that time frame would pose unacceptable hazard for bowel injury and resultant fistula formation. Subsequent CT scan was performed which showed essentially resolution of the fluid collections. Despite the fact, he still had ongoing egress of the drains of purulent material. It was my impression he probably had a small enteric leak likely at the area of the enteroenterostomy for which a fistulous like fluid is well controlled. Consideration was made for disposition as he was tolerating a solid diet and having no signs of elevated white count or fever. It was ultimately found that he was not eligible for admission to any regional extended care facility and a plan for home health support outlined by the airport planner. Upon discharge, he will empty his own drains as needed to maintain suction; he has demonstrated ability to do so. His ostomy appliance can be changed himself and wafer will be changed by home health visits at least twice a week. He will be maintained on antibiotics for the time being. Drains will not be removed until egress of enteric of drained fluid is clear and only then after a repeat CT scan with IV and GI contrast. The patient has G-tube still in place, which does not require special management at this point. Indeed, it could probably be removed in the near future. DISCHARGE MEDICATIONS: 1. Augmentin 500 mg p.o. t.i.d. #42. 2. Levaquin 500 mg p.o. daily #14. 3. Fluconazole 200 mg p.o. daily #14. 4. Ferrous sulfate 325 mg b.i.d. #120, no refill. 5. Percocet 7.5/325 1-2 p.o. p.r.n. severe pain #10, no refill. 6. Pantoprazole 40 mg p.o. daily #30, refill three. 7. Multivitamin one p.o. daily #30. He will continue his usual medications from home which include; 1. Ozempic 0.5 mg subcu weekly. 2. Allopurinol 300 mg half a tablet p.o. daily. Electronically Signed By: MICHAEL PRO MD 05/11/22 1814 PATIENT NAME: DAVID POTTS DISCHARGE SUMMARY DATE OF : 57 REPORT #: [id number] PHYSICIAN: MICHAEL PRO MD PCP: Tristan Carrera DO REPORT IS CONFIDENTIAL AND NOT TO BE RELEASED WITHOUT AUTHORIZATION [address] [place], [place] [address] Signed 3. Losartan 100 mg p.o. daily. 4. Spironolactone 25 mg p.o. daily. 5. Isosorbide mononitrate 30 mg extended release tablet one p.o. daily. 6. Indapamide 1.25 mg p.o. daily. 7. Azelastine 0.05% eyedrops one drop b.i.d. for affected eye. 8. Olopatadine 0.1% eye drops ophthalmic b.i.d. 9. Fluticasone, two sprays, nasal, each day each nostril. 10. Amlodipine 5 mg p.o. daily. 11. Simvastatin 20 mg p.o. daily. FOLLOW UP: 1. I will see him back in the office in 2-3 weeks at which point, further assessment of his drains will be undertaken. A CT scan will be obtained to assess progress as appropriate. He is encouraged to walk. 2. THE PATIENT WILL NEED A WHEELED WALKER AT TIME OF DISCHARGE FOR AMBULATION. 3. He is permitted to shower or bathe daily. He will change the ostomy bag as appropriate and home health will assist with thick wafer change at least twice a week. 4. He will additionally empty his drains though not required to measure the output only the character of the pain to keep him on dissection at all times. DISCHARGE DIAGNOSIS: 1. Acute toxic megacolon with severe systemic sepsis related to perforated localized diverticulitis, status post emergency subtotal colectomy with end ileostomy. 2. Persistent severe sepsis requiring prolonged pressor agents resulting in segmental small bowel infarction with liquefactive necrosis. 3. Exploration of abdomen with segmental small-bowel resection and [id number] functional enteroenterostomy and end ileostomy and placemnt of drains. 4. Underlying diabetes mellitus. 5. Hypertension. 6. Low-grade chronic renal failure. 7. Gastroesophageal reflux. MD ARIA Mane/BRIAN /[id number] Electronically Signed By: MICHAEL PRO MD 05/11/22 1814 PATIENT NAME: DAVID POTTS DISCHARGE SUMMARY DATE OF : 57 REPORT #: [id number] PHYSICIAN: MICHAEL PRO MD PCP: Tristan Carrera DO REPORT IS CONFIDENTIAL AND NOT TO BE RELEASED WITHOUT AUTHORIZATION [facility] [address] [facility] [place], [place] [address] Signed cc: MD Kishor Leal MD Jonathan Hitzman, MD [facility] Timmy Delgado MD Copies: BENITA MART MD, LOHITH MD HITZMAN, JONATHAN MD RASCH,TIMMY ANDRES ~ Electronically Signed By: MICHAEL PRO MD 05/11/22 1814 PATIENT NAME: DAVID POTTS DISCHARGE SUMMARY DATE OF : 57 REPORT #: [id number] PHYSICIAN: MICHAEL PRO MD PCP: Tristan Carrera DO REPORT IS CONFIDENTIAL AND NOT TO BE RELEASED WITHOUT AUTHORIZATION
== END 2022-05-06 11:25 | disposition home health service (06) | DRG 853 ==
LOC: ED 07:19 → CCU 13:43 → MS 13:43 → CCU 14:19 → MS 04-06 13:08 → CCU 04-11 07:30 → MS 04-16 13:47
PROVIDERS: ADMIT Internal Medicine; ATTEND Surgery
PROC: 3E03329 Introduction of Other Anti-infective into Peripheral Vein, Percutaneous Approach (ICD-10-PCS; principal; 2022-03-30)
PROC: 3E033XZ Introduction of Vasopressor into Peripheral Vein, Percutaneous Approach (ICD-10-PCS; 2022-03-30)
PROC: 30233N1 Transfusion of Nonautologous Red Blood Cells into Peripheral Vein, Percutaneous Approach (ICD-10-PCS; 2022-03-30)
PROC: 02HV33Z Insertion of Infusion Device into Superior Vena Cava, Percutaneous Approach (ICD-10-PCS; 2022-03-30)
PROC: 0DTL0ZZ Resection of Transverse Colon, Open Approach (ICD-10-PCS; 2022-03-31 09:00)
PROC: 0D1B0Z4 Bypass Ileum to Cutaneous, Open Approach (ICD-10-PCS; 2022-03-31 09:00)
PROC: 0DJD8ZZ Inspection of Lower Intestinal Tract, Via Natural or Artificial Opening Endoscopic (ICD-10-PCS; 2022-04-02)
PROC: 0D180Z4 Bypass Small Intestine to Cutaneous, Open Approach (ICD-10-PCS; 2022-04-11)
PROC: 0DBB0ZZ Excision of Ileum, Open Approach (ICD-10-PCS; 2022-04-11)
PROC: 0DBA0ZZ Excision of Jejunum, Open Approach (ICD-10-PCS; 2022-04-11)
PROC: 02HV33Z Insertion of Infusion Device into Superior Vena Cava, Percutaneous Approach (ICD-10-PCS; 2022-04-11)
PROC: 05PYX3Z Removal of Infusion Device from Upper Vein, External Approach (ICD-10-PCS; 2022-04-11)
DX: A41.9 Sepsis, unspecified organism (principal); K65.1 Peritoneal abscess; T80.211A Bloodstream infection due to central venous catheter, initial encounter; K55.029 Acute infarction of small intestine, extent unspecified; R65.21 Severe sepsis with septic shock; N17.0 Acute kidney failure with tubular necrosis; K59.31 Toxic megacolon; K31.0 Acute dilatation of stomach; T81.42XA Infection following a procedure, deep incisional surgical site, initial encounter; K57.00 Diverticulitis of small intestine with perforation and abscess without bleeding; K21.9 Gastro-esophageal reflux disease without esophagitis; I12.9 Hypertensive chronic kidney disease with stage 1 through stage 4 chronic kidney disease, or unspecified chronic kidney disease; N18.30 Chronic kidney disease, stage 3 unspecified; E11.65 Type 2 diabetes mellitus with hyperglycemia; E11.22 Type 2 diabetes mellitus with diabetic chronic kidney disease; Z20.822 Contact with and (suspected) exposure to COVID-19; D69.59 Other secondary thrombocytopenia; T36.95XA Adverse effect of unspecified systemic antibiotic, initial encounter; E87.5 Hyperkalemia; Z96.652 Presence of left artificial knee joint; Z96.612 Presence of left artificial shoulder joint; Z90.49 Acquired absence of other specified parts of digestive tract; Z98.890 Other specified postprocedural states; Z88.1 Allergy status to other antibiotic agents; Z79.2 Long term (current) use of antibiotics; Z79.899 Other long term (current) drug therapy; Y83.6 Removal of other organ (partial) (total) as the cause of abnormal reaction of the patient, or of later complication, without mention of misadventure at the time of the procedure
CPT/HCPCS: 00532; 36415; 36430; 36600; 71045; 74018; 74176; 74177; 74178; 80048; 80053; 80061; 80076; 81001; 82150; 82570; 82803; 83036; 83605; 83690; 83735; 83880; 84100; 84132; 84134; 84300; 84484; 84550; 85007; 85025; 85060; 85610; 85730; 86140; 86850; 86900; 86901; 86922; 87040; 87070; 87075; 87088; 87205; 87493; 87502; 93005; 93010; 93306; 94002; 94003; 94644; 94660; 97110; 97116; 97140; 97162; 97530; A9270; C1751; C9113; C9803; J0131; J0171; J0330; J0692; J0780; J0878; J1100; J1160; J1170; J1200; J1644; J1652; J1720; J1815; J1885; J1940; J1956; J2001; J2185; J2250; J2270; J2370; J2405; J2543; J2550; J2704; J2765; J2795; J2916; J3010; J3430; J3475; J3480; J7030; J7040; J7050; J7060; J7070; J7120; J7121; P9016; P9047; Q9967; U0003

== ENCOUNTER 2022-05-11 09:26 | Inpatient (IN) | payer OTHER ==
[~2022-05-11] VITALS: Ht 172.7 cm; Wt 72.9 kg
[~2022-05-11 09:26] MED LIST: ALLOPURINOL300 MG PO; AMLODIPINE BESYL5 MG PO; AMOX TR-K CLV1 EACH PO; AZELAIC ACID50 GM TOP; AZELASTINE HCL6 ML OPTH; DOXYCYCLINE MO100 M1 PO; FERROUS SULFAT325 M2 PO; FLUCONAZOLE200 MG PO; FLUTICASONE PRO16 GM NAS; INDAPAMIDE1.25 MG PO; ISOSORBIDE MONO30 MG PO; LEVOFLOXACIN500 MG PO; LOSARTAN POTAS100 MG PO; MULTI VITAMIN1 EACH PO; OLOPATADINE HCL5 ML OP; OXYCODON-ACETA1 EAC2 PO; OZEMPIC0.25 MG/0. SQ; PANTOPRAZOLE SO40 MG PO; SIMVASTATIN20 MG PO; SPIRONOLACTONE25 MG PO
--- NOTE | 2022-05-11 17:00 | NUR ---
PT TRANSFERRED TO UNIT FROM ER. PT ASSESSMENT COMPLETED. PT IS A/O, RESPIRATIONS EVEN AND REGULAR. CALL LIGHT WITHIN REACH.
--- NOTE | 2022-05-11 18:15 | NUR ---
TO PT ROOM FOR MEDICATION ADMINISTRATION. PT IS A/O, RESPIRATIONS EVEN AND REGULAR. DENIES COMPLAINTS OR NEEDS ATT. CALL LIGHT WITHIN REACH.
--- NOTE | 2022-05-11 19:15 | NUR ---
RECEIVED REPORT FROM OFFGOING SHIFT. PT IS A&O X4, NO COMPLAINTS OF PAIN AT THIS TIME. PT IS RESTING COMFORTABLY IN HIS BED, CALL LIGHT WITHIN REACH.
--- NOTE | 2022-05-11 20:00 | NUR ---
WENT IN TO THE ROOM. PATIENT EMPTIED THE OSTOMY BAG. THE WAY HE EMPTY IT IS TO DETACH THE BAG AND IT WAS FULL. 375ML. PRIMARY RN GARRET AND SHAR QUIGLEY WERE IN THE ROOM TO CHANGE THE WHOLE APPLIANCE.
--- NOTE | 2022-05-11 20:14 | NUR ---
IN PT ROOM FOR ROUNDING AND PT CARES. CHANGED PT OSTOMY BAG, REPLACED WAFER AND BAG. APPLIED ALEVYN BANDAGE TO SACRUM FOR PREVENTION OF SORE, PT RESTING COMFORTABLY, NO COMPLAINTS OF PAIN AT THIS TIME.
--- NOTE | 2022-05-11 21:01 | NUR ---
DR. PRO CALLED TO CHECK ON PT. DISCUSSED BLOODY LOOKING DRAINAGE FROM OSTOMY AND G-TUBE. ALSO REPORTED MAG 1.0. NEW TELEPHONE ORDERS RECEIVED VERIFIED WITH READ BACK METHOD.
--- NOTE | 2022-05-11 21:43 | NUR ---
In pt room for medication administration. Pt in good spirits, no complaints of pain at this time. Pt assessment complete, VSS. Pt call light in reach, no further concerns.
--- NOTE | 2022-05-11 22:43 | NUR ---
In PT room for medication administration. Pt has no complaints or concerns at this time, states medication working "just great". Call light in reach, no further concerns.
--- NOTE | 2022-05-12 00:14 | NUR ---
IN PT ROOM FOR MEDICATION ADMINISTRATION. PT OSTOMY BAG EMPTIED, 100ML BROWN FLUID, NO HARD STOOL. PT REMINDED ABOUT 0000AM NPO STATUS, INDICATED UNDERSTANDING. NO COMPLAINT OF PAIN AT THIS TIME, CALL LIGHT IN REACH.
--- NOTE | 2022-05-12 00:33 | NUR ---
answered call light. emptied urinal 2, rinsed and placed in the bucket within patient's reach. patient denies any needs at this time.
--- NOTE | 2022-05-12 01:36 | NUR ---
In pt room for rounding. Pt is resting easily in bed, breathing unlabored and even. Pt has no indications of pain or discomfort, call light within reach, no further concerns.
--- NOTE | 2022-05-12 02:29 | NUR ---
In Pt room for VS and I&O's, pt assessment complete. Pt resting easy, no complaint of pain. Call light placed within reach.
--- NOTE | 2022-05-12 03:49 | NUR ---
IN PT ROOM FOR ROUNDING. PT RESTING, BREATHING EVENLY AND UNLABORED, NO INDICATIONS OF PAIN. CALL LIGHT WITHIN REACH
--- NOTE | 2022-05-12 05:45 | NUR ---
IN PT ROOM FOR ROUNDING/VS AND I&O'S. IV PUMP CLEARED, MIGUELITO DRAINS EMPTIED, TRASH REMOVED FROM ROOM. PT SEEN TO BE RESTING PEACEFULLY, EVEN BREATHING, UNLABORED, CALL LIGHT WITHIN REACH.
--- NOTE | 2022-05-12 07:15 | NUR ---
MED REC COMPLETE
--- NOTE | 2022-05-12 07:22 | NUR ---
REPORT RECEIVED FROM SHAR QUIGLEY. PT RESTING IN BED IN SUPINE POSITION. PT REPORTS 7/10 PAIN IN ABDOMEN THAT CONTINUES TO IMPROVE WITH PAIN MEDICATION. PT REPORTS NAUSEA. MIGUELITO DRAINS CONTINUE TO DRAIN CLOUDY FLUID ALL 3 DRAINS. MIDLINE INCISION UNCHANGED WIHT CAUDAL 2CM SHOWING POOR APROXIMATION WITH COULDY DRAINAGE. OSTOMY BAG SHOWING RUST COLOR FLUID. NO ADDITIONAL REQUESTS OR COMPLAINTS AT THIS TIME. CALL LIGHT WITHIN REACH. BED RAILSUP. HEAD OF BED ELEVATED TO 15 DEGREES.
--- NOTE | 2022-05-12 08:00 | NUR ---
MORNING ASSESSMENT AND MEDICAITON DUE. PT RESTING IN BED ON BACK WITH HEAD OF BED ELEVATED TO 10 DEGREES. PT APPEARS LETHARGIC AND SLIGHTLY DEPRESSED. WHEN ASKED WHAT HE WOULD LIKE PT STATES "PRAY FOR ME, I'M NOT DOING WELL." PT CONTINUES TO REPORT 7/10 PAIN IN LOWER CENTRAL ABDOMEN AND REQUESTS ADDITIONAL PAIN MEDICAITON. PT ALSO CONTINUES TO REPORT NAUSEA. SEE MAR FOR MEDICATION GIVEN. PT ALERT AND ORIENTED TO ALL. GENERALIZED WEAKNESS NOTED. PT ABLE TO MOVE ARMS AND LEGS AND HAS TYRE RETREADER STRENGTH BUT ALL ARE WEAKER THAN THIS RN'S PREVIOUS ASSESSMENTS DURING LAST HOSPITAL STAY. CMS INTACT. PT REMAINS ON BED REST PER MD ORDER. LUNG SOUNDS CLEAR. HEART TONES REGULAR. ABDOMEN SOFT BUT TENDER TO TOUCH. BOWEL TONES ACTIVE. OSTOMY BAG INTACT WITH PINK STOMA NOTED, RUST COLORED LIQUID IN OSTOMY BAG, MD AWARE. GAUZE IN PLACE AROUND PEG TUBE WITH NO DRAINGE NOTED AT THIS TIME. PEG TUBE FULL OF BROWN FLUID, CARAFATE GIVEN THROUGH PEG TUBE WITH 100ML TAP WATER FLUSH. AFTER SOME TIME PEG TUBE NOW FLUSHES EASILY. PT STATES PEG TUBE HAS NOT BEEN FLUSHED SINCE HE LEFT THE HOSPITAL DURING HIS LAST STAY. ALL THREE MIGUELITO DRAINS ARE DRAINING WHITE/YELLOW CLOUDY FLUID IN SMALL AMOUNTS, NOT ENOUGH TO EMPTY AT THIS TIME. MIDLINE INCISION HAS WELL APROXIMATED EDGED UNTIL DISTAL/CAUDAL 2CM WHICH ARE NOT APPROXIMATED AND LEAKING SMALL AMOUNTS OF CLOUDY WHITE/YELLOW FLUID. ALEXIA REMAIN INTACT. SMALL AMOUNTS OF OLD RED DRIED DRAINAGE NOTED ON EDGES OF INCISION. PT REPORTS PAIN IS IMPROVING, NOW AT 4/10. PT RESTING IN BED WITH EYES CLOSED. RESPIRATIONS EVEN AND UNLABORED. BED RAILS UP. CALL LIGHT WITHIN REACH.
--- NOTE | 2022-05-12 09:16 | NUR ---
PATIENT'T DAUGHTER CALLED, GENERAL UPDATE GIVEN THAT WBC'S ARE DECREASING, ELECTROLYTES ARE BEING STABILIZED AND DR. PRO HAD NOT YET BEEN IN TO SEE THE PATIENT AT TIME OF CALL.
--- NOTE | 2022-05-12 09:19 | NUR ---
THIS RN TO ROOM WITH DR. PRO FOR ROUNDS. PT UPDATED ON PLAN OF CARE AND PLAN FOR SURGERY TODAY. PRE OP CHECK LIST COMPLETE. CONSENT SIGNED. CHG WIPE DOWN PERFORMED BY AIMEE GLASS. PT TOELRATED WIPE DOWN WELL. PT REPORTS 4/10 ABDOMINAL PAIN AT THIS TIME. PT REPORTS NASUEA HAS RESOLVED. PT VERBALIZES UNDERSTANDING OF PLAN OF CARE AND STATES HIS QUESTIONS HAVE BEEN ANSWERED. NO ADDITIONAL NEEDS AT THIS TIME. CALL LIGHT WITHIN REACH. BED RAILS UP.
--- NOTE | 2022-05-12 10:00 | NUR ---
Spoke with pt, he states he is extremely tired and weak. States spoke with him and he will be going back to surgery. No changes at home He has a walker. DC plan will be pending. Aleisha from his insurance called to give another list of SNFs in [facility]. My concern remains, as I called 4 SNFs in [facility] prior to dc and all SNFS in [facility], [place] and [facility] declined due to his insurance. Will work with this pt as he get closer to dc. At this time, pt remains very ill and not ready for dc.
--- NOTE | 2022-05-12 10:22 | NUR ---
THIS RN TO ROOM TO CHECK ON PT. PT CONTINUES RESTING IN BED, AWAKE AND ALERT. PT REPORTS 5/10 ABDOMINAL PAIN THAT IS CLIMBING. SEE MAR FOR MEDICATION GIVEN. PT ALSO REPORTS NAUSEA HAS RETURNED. ALCOHOL SWABS PROVIDED WHICH PT STATES "REALLY HELPS." PT REPORTS HIS "LOWER RIBS FEEL LIKE THEY HAVE A TIGHT BELT AROUND THEM AND I CAN'T TAKE A DEEP BREATH." OXGYEN SATURATION REMAINS 100% ON ROOM AIR. RESPIRATIONS EVEN AND UNLABORED. WILL CONTINUE TO MONITOR. NO ADDITIONAL REQUSTS OR COMPLAINTS. CALL LIGHT WITHIN REACH. BED RAILS UP.
--- NOTE | 2022-05-12 11:39 | NUR ---
THIS RN TO ROOM TO CHECK ON PT. REPORT GIVEN TO ANTONIO SIMS, WHO IS IN ROOM TO VISIT WITH PT REGADING PROCEEDURE. PT VERBZLIES UNDERSTANDING OF PLAN OF CARE AND STATES HIS QUESTIONS HAVE BEEN ANSWERED. IV ABX COMPLETE. IV FLUSHED AND SWITCHED TO LR ON STRIGHT TUBING PER OR ORDERS. 1200 ABX HUNG FOR PRE OP ABX. PT REPORTS 4/10 PAIN IN ABDOMEN THAT IS CONTROLLED AT THIS TIME AND DENIES NEED FOR ADDITIONAL PAIN MEDICATIONS. PT DENIES NAUSEA AT THIS TIME. NO ADDITONAL NEEDS AT THIS TIME. AWAITING OR TEAM. CALL LIGHT WITHIN REACH. BED RAILS UP.
--- NOTE | 2022-05-12 12:05 | NUR ---
OR TEAM ARRIVED TO TRANSFER PT TO OR. REPORT GIVEN TO LETICIA PUENTES RN. PT TRANSFERED TO OR.
--- NOTE | 2022-05-12 12:15 | NUR ---
PTS KARLO, CALLED AND UPDATED ON PT STATUS AND PLAN OF CARE. KARLO VERBALIZES UNDERSTANDING AND STATES HER QUESTIONS HAVE BEEN ANSWERED.
--- NOTE | 2022-05-12 12:22 | NUR ---
PT ALERT, ORIENTED AND HAVING PLEASANT VISIT WITH FAMILY. GAVE BLESSING AND WILL LET FAMILY VISIT.
--- NOTE | 2022-05-12 13:30 | NUR ---
PT SITTING UP IN BED WITH TV ON. PT WELCOMED ME IN, SOMEWHAT DISCOURAGED HE IS BACK. GAVE ENCOURAGEMENT AND SUPPORT TO PT, ALSO HAD PRAYER WITH HIM. PT REQUESTED I CONTACT HIS -WHICH I DID. WILL KEEP HER INFORMED TO HOW PT IS DOING DURING SURGERY TODAY. PT THANKED ME, WILL FOLLOW
--- NOTE | 2022-05-12 15:08 | NUR ---
05/12/22 1508 Claire Weston 1454 PT ARRIVED TO PACU AND 6L VIA MASK PLACED BY CHINCHILLA MACHINE OPERATOR. RESP EVEN AND UNLABORED, AND PT ASLEEP AND NONAROUSABLE. 1502 PT WAKES TO TACTILE STIMULI AND O2 REMOVED. PT DENIES PAIN AND SMALL AMOUNT OF NAUSEA REPORTED. VSS.
--- NOTE | 2022-05-12 16:00 | NUR ---
PT ARRIVED FROM PACU BY BED. PT AWAKE, ALERT AND OREINTED. PT REPORTS 9/10 SHARP PAIN IN ABDOMEN. SEE MAR FOR MEDICATION GIVEN. PT DENIES NAUSEA. GENEALIZED WEAKNESS REMAINS. LUNG SOUNDS CLEAR. HEART TONES REGULAR. CPOX IN PLACE WITH OXGYEN SATURATIONS 99-100%. PTS BLOOD PRESSURE NOTED TO BE 88/58, BLOOD PRESSURE MEDICATIONS HELD. ADDITIONAL MEDICAITONS GIVEN THROUGH PEG TUBE AT THIS TIME. PEG TUBE FLUSHED WITH 100ML TAP WATER, WNL. FLUSHES EASILY. PEG TUBE SITE WNL NO DRAINAGE NOTED. GAUZE PLACED BETWEEN PEG TUBE AND SKIN. ABDOMEN SOFT BUT TENDER TO TOUCH. BOWEL TONES ACTIVE. OSTOMY BAG IN PLACE WITH DARK BROWN FLUID DRAINAING FROM PINK STOMA. MIDLINE INCISION SHOWS EDGES WELL APROXIMATED WITH WOUND VAC AT DISTAL/CAUDAL END AND 2 ALEXIA REMAINING AT PROXIMAL/CEPHALIC END OF INCISION. WOUND VAC WNL, GREEN LIGHT INDICATOR ON, 120MMHG IN SUCTION IN PLACE. LAPAROSCOPIC SITE ON LEFT ABDOMEN WNL WITH SMALL AMOUNT OF RED SHADOWING NOTED ON DRESSING. DRESSING INTACT. MIGUELITO DRAINAS X3 UNCHANGED WITH SMALL AMOUNTS OF WHITE CLOUDY FLUID IN ALL THREE DRAINS. PT CHEERFUL AND GLAD TO BED DONE WITH PROCEEDURE. PT ASSISTED WITH CALLING HIS SIGNIFICANT OTHER ON THE PHONE. NO ADDITIONAL NEEDS AT THIS TIME. JUICE AT BEDSIDE. CALL LIGHT WITHIN REACH. BED RAILS UP.
--- NOTE | 2022-05-12 17:03 | NUR ---
VITALS AND ASSESSMENTS DUE. THIS RN TO ROOM. PT RESTING IN BED WITH EYES CLOSED, RESPIRATIONS EVEN AND UNLABORED. OXGYEN SATUARTION OF 98-1005 ON ROOM AIR. PT AWAKENS TO VOICE. PT REPORTS 5/10 ABDOMINAL PAIN THAT IS "GETTING BETTER." PT DENIES NEED FOR ADDITIONAL PAIN MEDICATION. PEG TUBE REMAINS WNL, NO CHAGNES NOTED. ABDOMEN SOFT BUT TENDER TO TOUCH. BOWEL TONES ACTIVE. OSTOMY BAG IN PLACE WITH DARK BROWN FLUID DRAINAING FROM PINK STOMA. MIDLINE INCISION SHOWS EDGES WELL APROXIMATED WITH WOUND VAC AT DISTAL/CAUDAL END AND 2 ALEXIA REMAINING AT PROXIMAL/CEPHALIC END OF INCISION. WOUND VAC WNL, GREEN LIGHT INDICATOR ON, 120MMHG IN SUCTION IN PLACE. LAPAROSCOPIC SITE ON LEFT ABDOMEN WNL WITH SMALL AMOUNT OF RED SHADOWING NOTED ON DRESSING. DRESSING INTACT. MIGUELITO DRAINAS X3 UNCHANGED WITH SMALL AMOUNTS OF WHITE CLOUDY FLUID IN ALL THREE DRAINS. PT SIPPING JUICE. NO ADDITIONAL REQUESTS OR COMPLAINTS. CALL LIGHT WITHIN REACH. BED RAILS UP.
--- NOTE | 2022-05-12 17:20 | NUR ---
PT POST OP AFTER INTRA ABDOMINAL ABCESS CLEANING. PT ADVANCED TO 60G CARB DIET, MINIMAL APPITITE SO FAR. BLOOD SUGAR CHECKS WITH SLIDING SCALE INSULIN STARTED. LOW BLOOD SUGARS NOTED THIS SHIFT, JUCIE PROVIDED. BOOST PROVIDED WITH DINNER PER MD ORDER. PT TOLERATING ROOM AIR, CPOX IN PLACE. PT ALERT AND OREINTED THROUGHOUT SHIFT. MONITORING LABS. IV ABX GIVEN. ABDOMEN SOFT BUT TENDER TO TOUCH. BOWEL TONES ACTIVE. OSTOMY BAG IN PLACE WITH DARK BROWN FLUID DRAINAING FROM PINK STOMA. MIDLINE INCISION SHOWS EDGES WELL APROXIMATED WITH WOUND VAC AT DISTAL/CAUDAL END AND 2 ALEXIA REMAINING AT PROXIMAL/CEPHALIC END OF INCISION. WOUND VAC WNL, GREEN LIGHT INDICATOR ON, 120MMHG IN SUCTION IN PLACE. LAPAROSCOPIC SITE ON LEFT ABDOMEN WNL WITH SMALL AMOUNT OF RED SHADOWING NOTED ON DRESSING. DRESSING INTACT. MIGUELITO DRAINAS X3 UNCHANGED WITH SMALL AMOUNTS OF WHITE CLOUDY FLUID IN ALL THREE DRAINS. PT VOIDING QUANTITY SUFFICIENT. PT USES CALL LIGHT AND MAKES NEEDS KNOWN.
--- NOTE | 2022-05-12 17:35 | NUR ---
PATIENT'S IS TO BRING PATIENT'S HOME MEDICATIONS IN TOMORROW.
--- NOTE | 2022-05-12 17:45 | NUR ---
DR. PRO CALLED AND UPDATED ON PT STATUS AND ASSESSMENT INCLUDING BLOOD PRESSURE AND HELD MEDICATIONS. DR. PRO STATES TO HAVE HOSPITALIST CONTINUE FOLLOWING BLOOD PRESSURE AND PTS HOME MEDICATIONS. MANAGER OF ENTERPRISE UPDATED. ORDERS GIVEN TO FLUSH PEG TUBE QDAY WITH ONE SYRINGE OF TAP WATER, ORDERS ENTERED. ORDERS ALSO GIVEN TO DC BED REST ORDER. ORDERS ADJUSTED. REPEAT BACK PERFORMED FOR ALL ORDERS.
--- NOTE | 2022-05-12 18:00 | NUR ---
VITALS AND ASSESSMENT DUE. PT EATING DINNER, ABLE TO EAT ~50% OF DINNER WELL DRINK ~200ML OF ENSURE/BOOST. PT REPORTS 5/10 PAIN IN ABDOMEN AND REQUESTS PAIN MEDICATION. SEE MAR FOR MEDICATION GIVEN. PT DENIES NAUSEA. ABDOMEN UNCHANGED: SOFT BUT TENDER TO TOUCH. BOWEL TONES ACTIVE. OSTOMY BAG IN PLACE WITH DARK BROWN FLUID DRAINAING FROM PINK STOMA. MIDLINE INCISION SHOWS EDGES WELL APROXIMATED WITH WOUND VAC AT DISTAL/CAUDAL END AND 2 ALEXIA REMAINING AT PROXIMAL/CEPHALIC END OF INCISION. WOUND VAC WNL, GREEN LIGHT INDICATOR ON, 120MMHG IN SUCTION IN PLACE. LAPAROSCOPIC SITE ON LEFT ABDOMEN WNL WITH SMALL AMOUNT OF RED SHADOWING NOTED ON DRESSING. DRESSING INTACT. MIGUELITO DRAINAS X3 UNCHANGED WITH SMALL AMOUNTS OF WHITE CLOUDY FLUID IN ALL THREE DRAINS. 5ML CLOUDY GREEN/YELLOW FLUID REMOVED FROM MIGUELITO DRAIN #2. 10ML CLOUDY GREEN/YELLOW FLUID REMOVED FROM MIGUELITO DRAIN #3. 20ML CLOUDY GREEN/YELLOW FLUID REMOVED FROM MIGUELITO DRAIN #1. PT DENIES ADDITIONAL REQEUSTS OR COMPLAINTS. VOIDING QUANTITY SUFFICIENT. CALL LIGHT WITHIN REACH. BED RAILS UP.
--- NOTE | 2022-05-12 18:51 | NUR ---
ASSESSMENT AND VITAL SIGNS DUE. PT RESTING IN BED WATCHING TV. PT ALERT AND OREINTED TO ALL. PT REPORTS 5/10 SHARP PAIN IN ABDOMEN AND DENEIS NEED FOR ADDITIONAL PAIN MEDICATION. PT DENIES NAUSEA. ABDOMINAL ASSESSMENT, LINES, DRAINS, AND DRESSINGS UNCHANGED. PT TOELRATING ROOM AIR. PT DENEIS ADDITIONAL REQUESTS OR COMPLAINTS AT THIS TIME. CALL LIGHT WIHTIN REACH. BED RAILS UP.
--- NOTE | 2022-05-12 19:30 | NUR ---
Received report from offgoing shift. Pt in good spirits, stating he "feels stronger". Pt call light in reach, no complaints of pain at this time.
--- NOTE | 2022-05-12 21:00 | NUR ---
IN PT ROOM FOR ROUNDING. PT CALM AND RESTING EASILY, NO COMPLAINT OF PAIN AT THIS TIME. CALL LIGHT WITHIN REACH
--- NOTE | 2022-05-12 22:26 | NUR ---
in pt room for rounding. Pt resting comfortably, watching tv. Pt reports no concerns or pain at this time, call light within reach.
--- NOTE | 2022-05-12 23:46 | NUR ---
in pt room for rounding. Pt resting peacefully in bed, breathing even and unlabored. No indications or complaint of pain at this time.
--- NOTE | 2022-05-13 00:31 | NUR ---
IN PT ROOM FOR MEDICATION ADMINISTRATION. PT COMPLAINS OF PAIN 10IN ABODOMEN AND PROVIDED WITH PAIN MEDICATION ORDERED(SEE MAR) PT CALL LIGHT IN REACH, NO FURTHER CONCERNS.
--- NOTE | 2022-05-13 02:17 | NUR ---
IN PT ROOM FOR CHANGE OF OSTOMY BAG. PT WAFER AND BAG CHANGED, CLOTHING AND BEDDING CHANGED DUE TO BEING SOILED. PT HAD NO COMPLAINTS OF PAIN, WOUND VAC CHARGING, CALL LIGHT IN REACH
--- NOTE | 2022-05-13 02:25 | NUR ---
V/S AND I&O'S TAKEN AND CHARTED. CHANGED BED LINEN AND GOWN.
--- NOTE | 2022-05-13 03:12 | NUR ---
IN PT ROOM FOR ROUNDING, PT RESTING, BREATHING EASY AND UNLABORED. PT HAS NO COMPLAINT OF PAIN OR OTHER CONCERN, CALL LIGHT IN REACH
--- NOTE | 2022-05-13 04:50 | NUR ---
IN PT ROOM FOR ROUNDING, PT RESTING EASILY, BREATHING CALM, EVEN, AND UNLABORED. PT DENIES PAIN OR DISCOMFORT AT THIS TIME. CALL LIGHT WITHIN REACH, REMAINS FREE FROM FALLS AND INJURIES
--- NOTE | 2022-05-13 06:20 | NUR ---
IN PT ROOM TO ADMINISTER PAIN MEDICATION. PT BP WAS LOW AT 87/58. ENCOURAGED PT TO STAND FOR FIRST TIME POST SURGERY - PT SAT AT EDGE OF BED FOR 2 MINUTES THEN STOOD ASSISTED BY FWW FOR TWO MINUTES, NO REPORTS OF DIZZINESS OR DISCOMFORT. PT SAT BACK AT EDGE OF BED AND BP WAS REEVALUATED AT 98/63 WHICH IS MORE THE PT BASELINE FOR THIS ADMISSION.
--- NOTE | 2022-05-13 07:02 | NUR ---
Report from SHAR Schmidt. Patient alert and oriented, lying in bed. Encouraged to get out of bed into chair for breakfast. Refuses stating his pain is too bad to get up in chair this AM, but state he will try to get up later today. Educated on importance of getting out of bed, verbalizes understanding. Wound vac and SCD's in place and on. Wound vac without leaks noted. Call light in reach, bed rails up X2.
--- NOTE | 2022-05-13 07:37 | NUR ---
YPT CBG TAKEN W/READING OF 88. RN WILL BE NOTIFIED. PT GIVEN WARM WASH CLOTH FOR FACE/HANDS. PT STATED HE HAD ALREADY GOTTEN UP THIS MORNING AND WAS NOT FEELING LIKE HE WILL BE ABLE TO GET UP FOR BREAKFAST AND WOULD LIKE TO STAY IN BED TO EAT HE IS IN PAIN FROM STANDING EARLIER. PT IS SUPINE IN BED, RESTING COMFORTABLY. NO OTHER REQUESTS AT THIS TIME, CALL LIGHT IN REACH.
--- NOTE | 2022-05-13 08:29 | NUR ---
AM MEDICATIONS ADMINISTERED. ASSESSMENT COMPLETED. STATES PAIN IS 8 TO 9/10 AT THIS TIME. NAUSEATED INTERMITTENTLY, INFORMED TOO EARLY FOR ZOFRAN WHEN REQUESTED. USES ALCOHOL SWABS TO SMELL TO DECREASE NAUSEA. DOES STATE HE WOULD LIKE TO ATTEMPT TO EAT BREAKFAST. SET UP FOR BREAKFAST. DENIES OTHER NEEDS. CALL LIGHT IN REACH, BED RAILS UP X2.
--- NOTE | 2022-05-13 08:30 | NUR ---
BP REMAINS LOW, NO CHANGES FROM PREVIOUS VITALS, BP MEDS HELD.
--- NOTE | 2022-05-13 09:30 | NUR ---
Update from Dr. Hernandez. Pt tolerated surgery well. No plan for dc today.
--- NOTE | 2022-05-13 10:00 | NUR ---
It was a pleasure to visit with Wilfrid this morning. Upon entering the room Wilfrid is awake and alert, and answers questions appropriately, he is in high semi'li position in the bed and has eaten what he wants from his breakfast tray. I did remove the tray at his request. Wilfrid states that his care has been "top notch", he did have surgery yesterday, and is having some post-operative pain but shares that he feels like the staff members "are doing all they can" to manage his pain. He also states that the nurses are explaining his medications to him, and adds, "they are doing a good job, I am very happy with my care." Patient denies questions or concerns at this time.
--- NOTE | 2022-05-13 10:07 | NUR ---
PATIENT IS DOING WELL. HIS DIET IS 60 GM CONS CARB, VEGETARIAN. HE PREFERS GLUTEN-FREE FOODS AND ALMOND MILK INSTEAD OF COW'S MILK. DR. PRO ORDERED DIABETIC BOOST OR EQUIVALENT " MUCH PATIENT CAN DO." WILL SEND UP ENSURE HIGH PROTEIN ONE BOTTLE AT EACH MEAL. HE HAS A DECENT APPETITE THIS MORNING. OTHER FOOD PREFERENCES HAVE BEEN NOTED. WILL CONTINUE TO MONITOR.
--- NOTE | 2022-05-13 11:42 | NUR ---
YCBG DONE,125, PT REQUESTED PAIN MEDS FOR A 6 AND NAUSEA MEDS. RN CLAUDIA NOTIFIED. NO OTHER REQUESTS AT THIS TIME, CALL LIGHT IN REACH.
--- NOTE | 2022-05-13 11:50 | NUR ---
TIA, BASEBALL PITCHER IN TO CHECK BLOOD SUGAR. PT STATING A PAIN RATING OF 7. DILAUDID GIVEN. PT REQUESTED NAUSEA MEDICATION. WILL BE GIVEN PER NEXT DOSE AT 1230. ASSISTED TIA, BASEBALL PITCHER IN TRANSFERRING PT FROM BED TO CHAIR VIA 2PA/FWW. PT SITTING COMFORTABLY IN CHAIR EATING LUNCH. LEGS ELEVATED. CALL LIGHT WITHIN REACH. PT STATES NO FURTHER NEEDS AT THIS TIME.
--- NOTE | 2022-05-13 12:51 | NUR ---
PT ALERT, ORIENTED AND SITTING UP IN BED WITH TV ON. PT RATHER REFLECTIVE WHEN ANSWERING QUESTIONS, ON POINT AND VERY PLEASANT. PT FEELS INFORMED, WAS ABLE TO EAT SOME SOLID FOOD FOR AM MEAL. HAD GOOD VISIT, PT REQUESTED PRAYER. WILL FOLLOW NEEDED
--- NOTE | 2022-05-13 14:19 | NUR ---
Sitting up in recliner. States pain is 6/10 at thsi time. Does not want analgesic until 1530 because PT will be in for therapy at 1600, would like Zofran at that time as well. Denies other needs at this time. Call light in reach, family member in room at this time.
--- NOTE | 2022-05-13 16:34 | NUR ---
Patient remains with purulent drainage from MIGUELITO drains. WOund vac in place with scant sanguinous output. Up in chair this afternoon for lunch and supper. Dilaudid given multiple times today for pain control. Ice provided for pain control as well. Zofran given X1 for nausea. Remains on IV fluids and IV antibiotics. Continent of urine. G-tube flushed without difficulty. Ostomy putting out moderate amount of brown stool today.
--- NOTE | 2022-05-13 16:40 | NUR ---
PT CBG TAKEN, 122, REQUESTED WARM BLANKET & REFILLED WATER. EPTIED URINAL RECORDED.
--- NOTE | 2022-05-13 19:10 | NUR ---
REPORT RECEIVED FROM DAYSVAFT RN. PT RESTING IN BED, WATCHING TV, RESPIRATIONS EVEN. NO NEEDS AT THIS TIME.
--- NOTE | 2022-05-13 21:00 | NUR ---
PT ASSESSMENT COMPLETED, VITAL SIGNS AND I&O MEASURED AND DOCUMENTED. PT A&O x4. DENIES ANY NUMBNESS OR TINGLING IN UPPER OR LOWER EXTREMITIES. MIGUELITO TUBES AND ILLEOSTOMY EMPTIED AND DOCUMENTED. G-TUBE FLUSHED WITH 60ML OF TAP WATER, WNL. IV SITE RUNNING CONTINUOUSLY PER EMAR ORDERS AND INSERTION SITE AND DRESSING WNL. WOUND VAC SET TO 120 PER ORDERS WITH RED DRAINAGE. MIDLINE INCISION HEALING, NO CONCERNS. PT COMPLAINING OF 9/10 PAIN IN ABDOMEN WITH COUGHING. PAIN MEDS AND PM MEDICATIONS GIVEN PER EMAR ORDERS. FRESH WATER PROVIDED, CALL LIGHT IN REACH, AND BED RAIL UP X1. DENIES FURTHER NEEDS AT THIS TIME.
--- NOTE | 2022-05-13 22:56 | NUR ---
INTO ROOM TO ANSWER CALL LIGHT. PT REPOSITIONED IN BED. URINAL AND ILLEOSTOMY EMPTIED. FRESH WATER PROVIDED. PT NOW RESTING IN BED WATCHING TV, CALL LIGHT IN REACH. NO FURTHER NEEDS AT THIS TIME.
--- NOTE | 2022-05-14 00:37 | NUR ---
INTO ROOM TO START NEW BAG OF IVF PER EMAR ORDERS. URINAL EMPTIED. PT RESTING IN BED, RESPIRATIONS EVEN. NO FURTHER NEEDS AT THIS TIME.
--- NOTE | 2022-05-14 01:50 | NUR ---
INTO ROOM TO START ANTIBIOTICS PER EMAR ORDERS. PT SLEEPING IN BED, RESPIRATIONS EVEN. URINAL EMPTIED. CALL LIGHT IN REACH. NO FURTHER NEEDS AT THIS TIME.
--- NOTE | 2022-05-14 04:44 | NUR ---
PT ASSESSMENT COMPLETED AND DOCUMENTED. PT COMPLAINING OF 6/10 ABDOMINAL PAIN AND REQUESTING NAUSEA MEDICATION. MEDICATIONS GIVEN PER EMAR ORDERS. BEDSIDE URINAL AND ILLEOSTOMY EMPTIED. IVF RUNNING PER ORDER. SCD'S IN PLACE. CALL LIGHT IN REACH AND BED RAILS UP X1. NO FURTHER NEEDS AT THIS TIME.
--- NOTE | 2022-05-14 06:00 | NUR ---
INTO ROOM TO ANSWER CALL LIGHT. PT REQUESTING PAIN MEDICATION. PAIN MEDICATION GIVEN PER EMAR ORDERS. VITAL SIGNS AND I&OS TAKEN AND DOCUMENTED. MIGUELITO TUBES AND ILLEOSTOMY EMPTIED. BEDSIDE URINAL EMPTIED. SCDS IN PLACE. NO FURTHER NEEDS AT THIS TIME. CALL LIGHT IN REACH AND BED RAIL UP X1.
--- NOTE | 2022-05-14 07:20 | NUR ---
Report from SHAR Quinteros. Patient resting in bed with eyes closed. Allowed to rest at this time. Call light in reach, bed rails up X2.
--- NOTE | 2022-05-14 07:41 | NUR ---
PT IN BED. BS TAKEN. PT ASSISTED TO BED TO CHAIR W FWW. LINEN CHANGE. WARM BLANKET GIVEN. ICE PACK GIVEN. NO FURTHER NEEDS. CALL LIGHT WITHIN REACH.
--- NOTE | 2022-05-14 09:21 | NUR ---
PT IN CHAIR. VITALS AND IS AND OS COMPLETE. PT SELF EMPTIED OSTOMOY. NO NEEDS AT THIS TIME. CALL LIGHT WITHIN REACH.
--- NOTE | 2022-05-14 10:29 | NUR ---
Sitting up in recliner, watching TV. Wound vac on continuously with no leaks noted. Assessment completed. Rates pain 04/01, see EMAR.
--- NOTE | 2022-05-14 10:30 | NUR ---
Spoke with Wilfrid and Dr. Hernandez. Pt now states he would consider going to [facility]. I texted JEFFERSON and he states they may have a bed open by Wednesday. Dr. Hernandez updated and agrees. He completed paperwork for [employer] wound vac in case pt is not able to go to SNF and has to go home.
--- NOTE | 2022-05-14 12:51 | NUR ---
Face sheet, H&P, progress notes, [facility] papers faxed to [employer] for auth for wound vac. Above chart faxed to JEFFERSON at [facility] as pt now states he would go to [facility] as he failed at home.
--- NOTE | 2022-05-14 13:33 | NUR ---
HYDRAULIC DREDGE OPERATOR IN ROOM. PT IN CHAIR EMPTYING MIGUELITO DRAINS. VITALS TAKEN. ICE WATER REFRESHED. NO NEEDS. CALL LIGHT WITHIN REACH.
--- NOTE | 2022-05-14 14:13 | NUR ---
KARLO JUST ENTERED PT'S RM I DID. PT SITTING IN CHAIR READING, ALERT AND ORIENTED. PT FEELING BETTER SINCE SURGERY-ABLE TO EAT SOME SOLID FOOD. PT DID ADMIT PAIN WAS INCREASING. GAVE BLESSING AND WILL LET THEM VISIT.
--- NOTE | 2022-05-14 16:42 | NUR ---
Up in chair most of the day. Pain decreases with Dilaudid. PRN Percocet initiated today, helps to decrease pain as well. Continues on IV antibiotics and IV fluids continously. 3 MIGUELITO drains with purulent drainage. G-tube flushes easily. wound vac remains in place, no leaks noted.
--- NOTE | 2022-05-14 19:30 | EKG ---
[facility] [address] [facility] [place] [address] Signed Normal sinus rhythm Normal ECG When compared with ECG of 11-APR-2022 07:54, No significant change was found Confirmed by Traci Soto MD () on 05/14/2022 7:30:29 PM Electronically Signed By: TRACI SOTO MD 05/14/221929 PATIENT NAME: DAVID POTTS Electrocardiogram DATE OF : 57 PHYSICIAN: TRACI SOTO MD REPORT #: [id number] REPORT IS CONFIDENTIAL AND NOT TO BE RELEASED WITHOUT AUTHORIZATION
--- NOTE | 2022-05-14 19:53 | NUR ---
pT ON ROOM AIR, LUNGS CLEAR BILAT, SLIGHTLY DIM AT BASES, MOIST NON PRODUCTIVE COUGH PRESESNT, ABLE TO CLEAR, SWALLOWS PHLEGM. ALERT AND ORIENTED, COOPERATIVE. UP IN CHAIR, BACK TO BED, 1PA/FWW TOLERATED WELL, USED URINAL, DID OWN STOMA CARE/EMPTYING VERY WELL. 3 MIGUELITO W MILKY THICK DRAINAGE, SEE FLOW SHEET, TF PATENT.MIDLINE ABD INCISON HEALING, LOW ABD WOUND VAC IN PLACE, DRAINING SS DRAINAGE AT 120CCHG PRESSURE. ALLEVYN TO BUTTOCKS. TOLERATING LIQUIDS WELL, NO EMESIS.
--- NOTE | 2022-05-14 22:07 | NUR ---
oN ROOM AIR, EYES CLOSED, NO DISTRESS COMFORTABLE, IVF INFUSING, WOUND VAC IN PLACE. CALL LIGHT AND FLUIDS AT HANDS REACH
--- NOTE | 2022-05-14 23:56 | NUR ---
AWAKES EASILY, ON ROOM AIR, IVF INFUSING, USED URINAL, STOMA EMPTIED, PT DOES OWN CARE WITH NO MINIMUM OF ASSIST. USES CALL LIGHT.
--- NOTE | 2022-05-15 02:51 | NUR ---
awakes easily, coop with assessment, on room air, IVF infusing w/o problems. no c/oused urinal. call light at hands reach,
--- NOTE | 2022-05-15 06:20 | NUR ---
DR SOTO MADE AWARE PER REQUEST OF PRIMARY RN SELENA OF AM BP RESULT OF 85/59, TELEPHONE ORDER READ BACK TO TITRATE IV FLUIDS (LR) TO 100MLS/HR. pt ASYMPTOMATIC. PRIMARY RN SELENA MADE AWARE. ALSO DISCUSSED H&H RESULTS FOR AM, PER MD SOTO WILL WAIT UNTIL MD AKERS ASSESSES pt HE IS PRIMARY BEFORE PLACING ADDITIONAL ORDERS.
--- NOTE | 2022-05-15 06:32 | NUR ---
0618 - DR MEDINA NOTIFIED OF BP 85/59. NEW ORDERS TO INCREASE IVF LR TO 100CC/HR BP AT THIS TIME 89/61. PT AWAKE, ALERT AND OIENTED, DENIES FEELING LIGHTHEADED
--- NOTE | 2022-05-15 07:00 | NUR ---
anaerobic/aerobic gram stain preliminary results from abscess on chart per md request. md martin to review later today.
--- NOTE | 2022-05-15 08:14 | NUR ---
PATIENT IN BED UNTIL MEAL ARRIVES BY REQUEST. PT HAS NO OTHER NEEDS AT THIS TIME, CALL LIGHT WITHIN REACH.
--- NOTE | 2022-05-15 08:23 | NUR ---
Report recieved, care resumed. Assessment done, morning meds given. Pt a/o, pleasant and conversive. No pain at this time. Ambulated to chair with 1PA and FWW. Currently awaiting breakfast with call light and personal items in reach.
--- NOTE | 2022-05-15 08:30 | NUR ---
PER TEXT FROM JEFFERSON AT [facility], CHART HAS GONE TO NURSING FOR REVIEW.
--- NOTE | 2022-05-15 09:25 | NUR ---
IN ROOM TO GIVE MEDICATIONS, PT SITTING UP IN CHAIR EATING BREAKFAST. COMPLAINS OF 6/10 LOW ABD PAIN AND LOW BACK PAIN. STOMA BAG EMPTIED, MIGUELITO DRAINS WITH SMALL AMOUNT OF MILKY YELLOW-WHITE FLUID, WOUND VAC DRAINING RED-BROWN FLUID. PAIN MEDICATION GIVEN, PT REPOSITIONED AND GIVEN WARM PACK. DR SOTO IN ROOM TO DISCUSS PLAN, NOTIFIED OF MEDS THAT WERE HELD D/T LOW BP. ANTICIPATE POSSIBLE TRANSFUSION LATER TODAY. AWAITING ORDERS.
--- NOTE | 2022-05-15 09:56 | NUR ---
PT VS/I&O'S DOCUMENTED. THIS CNA2 DID A PARTIAL LINEN CHANGE, SET PT UP FOR ADLS, TOOTHBRUSH, SHOWER CAP, COMB, WARM WASH CLOTH, WIPES. PT WAS INDEPENDENT ON OWN CARES. NO OTHER REQUESTS. UP IN CHAIR FACING WINDOW ALSO WATCHING TV. CALL LIGHT IN REACH.
--- NOTE | 2022-05-15 10:27 | NUR ---
PT LEAVING THE FLOOR WITH PHYSICAL THERAPY TO GO FOR A RIDE AND GET FRESH AIR. PT REPORTS ABD PAIN AND BACK PAIN DOWN TO 4/10, HEAT PACK WAS HELPFUL.
--- NOTE | 2022-05-15 12:12 | NUR ---
PT GIVEN IV PAIN MED FOR 910 ABDOMINAL PAIN AFTER BUSY MORNING AND LONG WALK WITH PHYSICAL THERAPY. GTUBE FLUSHED WITH 60 ML TAP WATER PER ORDERS. PT TOLERATED WELL. SOME NAUSEA AFTER PAIN MEDS, RESOLVED WITHIN A FEW MINUTES. PT SITTING IN CHAIR EATING LUNCH NOW WITH LEGES ELEVATED ADN PERSONAL ITEMS AND CALL LIGHT IN REACH.
--- NOTE | 2022-05-15 14:19 | NUR ---
ASSESSMENT DONE. PT SITTING UP IN CHAIR VISITING WITH . FEET ELEVATED, PERSONAL ITEMS NEARBY. BP 90/61 HR 97 O2 100% ON RA, TEMP 97.7F. PAIN AT 4/10 IN ABDOMEN. ICE PACK ON LOW BACK. GAUZE CHANGED AROUND GTUBE FOR MEDIUM AMOUNT OF YELLOW DISCHARGE. PT ABDOMEN SOMEWHAT TENDER TO PALPATION RIGHT OF MIDLINE. PERSONAL ITEMS AND CALL LIGHT IN REACH.
--- NOTE | 2022-05-15 15:45 | PATH ---
[facility] [address] [place] [facility] [place], [place] [address] Signed SPECIMEN(S): A ABDOMINAL ABSCESS SPECIMEN SOURCE: A. ABDOMINAL ABSCESS CLINICAL HISTORY: Abdominal/incisional abscess. FINAL PATHOLOGIC DIAGNOSIS: Abdominal abscess: - Fragments of necrotic soft tissue with focally abundant acute inflammation (abscess). [id number] MICROSCOPIC EXAMINATION: Histologic sections of all submitted blocks are examined by light microscopy. These findings, together with the gross examination, support the pathologic diagnosis. GROSS DESCRIPTION: The specimen, labeled "RB, A," and designated on the requisition "products of debridement, abdominal/incisional abscess," is received in formalin and consists of five pieces of yellow fibrofatty to jones-white fibroglandular tissue that are ragged and from 1.5 x 2 3.4 cm in greatest dimension. The tissue pieces are diffusely covered in ontiveros exudate. The specimen is cross-sectioned to reveal yellow fibrofatty tissue and ontiveros exudate. An additional discrete mass/lesion is not grossly identified. Rug Frame Mounter sections are submitted in one cassette (A1). AI (under the direct supervision of a pathologist) The Gross Description was prepared using a voice recognition system. The report was reviewed for accuracy; however, sound-alike word errors, addition and/or deletions may occur. If there is any question about this report, please contact Client Services. PERFORMING LABORATORY: The technical component was performed by [facility], [address] [place] [id number] (CLIA# [id number]). Professional interpretation was performed by [email or web address] - [facility], [address] [place] [id number] (CLIA#: [id number]). PATIENT NAME: DAVID POTTS PATHOLOGY DATE OF : 57 REPORT #: [id number] PHYSICIAN: CHARLES PATHOLOGY PCP: Tristan Carrera DO REPORT IS CONFIDENTIAL AND NOT TO BE RELEASED WITHOUT AUTHORIZATION [address] [address] Signed Diagnostician: Manuel Cardoso MD Pathologist Electronically Signed 05/15/2022 Copies: ~ PATIENT NAME: DAVID POTTS PATHOLOGY DATE OF : 57 REPORT #: [id number] PHYSICIAN: [facility] PCP: Tristan Carrera DO REPORT IS CONFIDENTIAL AND NOT TO BE RELEASED WITHOUT AUTHORIZATION
--- NOTE | 2022-05-15 16:13 | NUR ---
FIRST UNIT OF BLOOD STARTED, SEE INTERVENTION RECORD. PT SITTING UP IN CHAIR DOING GAMES ON HIS TABLET. VSS, RESP EVEN AND UNLABORED AT 15 MIN JASON. INSTRUCTIONS GIVEN TO CALL FOR ANY ABNORMAL SYMPTOMS, PT EXPRESSED UNDERSTANDING.
--- NOTE | 2022-05-15 17:25 | NUR ---
RN PT ROUNDING. PT COMPLAINS OF PAIN 03/01 WITH THE REQUEST OF PAIN MEDICATION. CALL LIGHT WITHIN REACH.
--- NOTE | 2022-05-15 19:13 | NUR ---
PT H/H DOWN TO 7.0/21.7 THIS MORNING WITH LOW BPS. NO COMPLAINTS OF DIZZINESS OR LIGHTHEADEDNESS WITH ACTIVITY THOUGH. PT WENT OUTSIDE WITH OT, THEN TOOK A WALK TO THE [facility] WITH PT THIS MORNING WHICH HE REALLY ENJOYED, BUT TIRED HIM OUT. IV PAIN MEDS NEEDED ONCE AFTER THIS. PT RECIEVED 1 OF 2 ORDERED UNITS OF BLOOD TODAY WITHOUT ISSUE. CURRENTLY SITTING IN CHAIR READING ON TABLET WITH PILLOWS FOR COMFORT. 10 ML OF MILKY DISCHARGE FROM DRAIN #1, 5 ML OF SAME FROM #2 AND 5 ML IN #3 FOR DAILY TOTAL. BP AT END OF SHIFT 99/61.
--- NOTE | 2022-05-15 20:07 | NUR ---
UP IN CHAIR, BACK TO BED 1PA/FWW. ON ROOM AIR, COOP WTIH ASSESSMENTS. LUNGS CLEAR DIM AT BASES, NO C/O COUGH, ABD MORE DISTENDED ON R SIDED, OLD SCARRED AREA LOW QUAD RED, INDENTED 1+ PITTING EDEMA AND PINKISH COLORED. C/O MILD PAIN, DENIES NEED FOR PAIN MED. MIGUELITO R ABD, STOMA R SIDE PATENT. 2JP L LOW ABD AND TF YAYO ABD AREA ALL WITH RED AT INSERTION SITES, TF WITH SCANT AMOUNT OF YELLOW THICK DRAINAGE. JPS WITH MILKY SCANT AMOUNT OF DRAINAGE. MIDLINE ABD INCISION HEALING, LOW END OF INCISION LOW ABD WOUND VAC IN PLACE, DRAINING REDDISH DRAINAGE, PATENT AT 120. IVF INFUSING RFA AND SL PATENT. NO C/O ADVERSE REACTION TO ABX. TOLERATING LIQUIDS WELL, NO EMESIS. USES URINAL. EDEMA TO ANKLES NOTED 1+, ELEVATED
--- NOTE | 2022-05-15 20:39 | NUR ---
2023 UNIT [facility] STARTED, UNIT#[id number], PROCEDURE EXPLAINED, COOPERATIVE. NO C/O ADVERSE REACTION,, STATED UNDERSTANDING.
--- NOTE | 2022-05-15 21:53 | NUR ---
awwake, rt was in room, checked home cpap, ready at bedside. Pt denies s/sx adverse reaction to blood transfusion, IVF infusing, blood infusing, using urinal and tolerating liquids well
--- NOTE | 2022-05-15 22:55 | NUR ---
2240- 2ND UNIT BLOOD COMPLETED, NO C/O ADVERSE REACTION TO TRANSFUSION
--- NOTE | 2022-05-16 01:03 | NUR ---
PT AWAKE, USING URINAL, IVF INFUSING, NO C/O PAIN, USING HOME CPAP, DID OWN OSTOMY CARE.
--- NOTE | 2022-05-16 05:09 | NUR ---
Pt on room air, used CPAP most of this shift, no c/o sob, IVF/IV ABX infusing w/o problems, SL patent. Received 1 unit s PRBC last night plus one unit in am shift. has tolerated well, no c/o s/sx adverse reaction to total of 2 untis PRBC's. labs to be drawn this am. midline abd incision healing, woundvac to low abd in place. R ostomy patent, draining greenish soft bms. pt does own care. #1 R low MIGUELITO and #2 and #3 MIGUELITO on L low abd red at insertion site, draining small amount of milky/pinkish drainage. see flow sheet. YAYO abd TF red at insertion site and scant amount of yellow drainage noted, gauze changed x1. fidel, noted R abd +1 pitting edema and old scar area edematous, tender to tocuh, will shahida ANDRES, pt denies need for pain med last night. moves extremities and walked from chair to bed 1PSBA/FWW transferred and repositions and turns self in bed very well. tolerating fluids well. CBG was 145, received 1 units ss insulin and scheduled Garglyne insulin, Allevyn to buttocvks in place. uses call light and urinals, voiding QS. and R MIGUELITO
--- NOTE | 2022-05-16 07:05 | NUR ---
Report from Tomi Howard RN. Patient lying in bed, alert and oriented. Denies needs at this time. Informed Wound vac dressing will be changed today. Verbalizes understanding. Denies needs at this time. Call light in reach, bed rails up X2.
--- NOTE | 2022-05-16 09:56 | NUR ---
PT IN BED. VITALS AND IS AND OS TAKEN. PT DECLINED ANY NEEDS. CALL LIGHT WITHIN REACH.
--- NOTE | 2022-05-16 12:30 | NUR ---
DRESSING TO LOWER, MIDLINE ABDOMEN CHANGED AFTER PREVIOUS DRESSING REMOVED AND CLEANSED WITH SALINE. WOUND VAC SUCTIONING TO 120, NO LEAKS NOTED. OSTOMY BAG AND WAFER CHANGED WELL. AQUACEL TO LEFT ABDOMEN CHANGED, NO DRAINAGE ON PREVIOUS DRESSING NOTED. TOLERATED WITH SOME PAIN, ORAL ANAGLESIC ADMINISTERED PRIOR TO DRESSING CHANGE, DILAUDID GIVEN DURING DRESSING CHANGE. CONTINENT OF URINE, ASSISTED BACK TO RECLINER AFTER DRESSINGS CHANGED. ALSO CHANGED DRESSING TO COCCYX, ALLEVYN. NO OPEN AREAS NOTED, MUTIPLE SMALL AREAS OF BLANCHING REDNESS NOTED.
--- NOTE | 2022-05-16 13:47 | NUR ---
PT IN CHAIR. VITALS AND IS AND OS COMPLETE. PT GIVEN PILLOW AND ICE FOR BACK. NO NEEDS CALL LIGHT WITHIN REACH.
--- NOTE | 2022-05-16 14:43 | NUR ---
IVF DC'D PER ORDERS. CONTINUES ON IV ABX AT THIS TIME. SITTING UP IN RECLINER, DENIES NEEDS. CALL LIGHT IN REACH.
--- NOTE | 2022-05-16 16:37 | NUR ---
pt in chair bs taken. no needs. call light within reach.
--- NOTE | 2022-05-16 17:00 | NUR ---
Up in chair most of the day. Wound vac dressing, Alleyvn and RLQ incision dressings changed today. Ostomy wafer/bag changed today. PRN Dilaudid and Percocet given and pain decreases with medications. IV fluids DC'd today, SL between antibiotics. MIGUELITO drains with minimal output. G-tube flushed. Continues with good output through ostomy.
--- NOTE | 2022-05-16 21:11 | NUR ---
Pt awake, pleasant, alert and oriented. On room air, clear lungs bilat, no cough noted durin assessment, and denies. no c/o abd pain. midline incision healing well, low end of incision wound vac in place at 120 suction pressure. R low abd area tender, red leee edematous, 1+, Ostomy patent drainng green/brown colored drainage. R low abd MIGUELITO#1, #2 and #3 MIGUELITO on left side with small amount of yellowish/pink/creamy drainage. RU abd TF in place, with scant amount of yellow drainage at insertion site. clamped. all MIGUELITO and TF slight rednes at insertion sites. abd tender MICHELLE, denies need for pain med. 2SL patent. edema to ankles, improving, LE elevated, pt uses CPAP. tolerating liquids well, no emesis, voising QS uses urinal. call light at hands reach, helped with repositining, Allevyn to buttocks.
--- NOTE | 2022-05-16 23:39 | NUR ---
CALL LIGHT ANSWERED. URINALS EMPTIED. ASSISTED WITH HOME CPAP. NO FURTHER NEEDS.
--- NOTE | 2022-05-17 00:32 | NUR ---
pt awake, using CPAP, no c/o adverse reaction to IV abx, tolerating liquids well. uses urinal. call light at hands reach
--- NOTE | 2022-05-17 00:45 | NUR ---
PATIENT IS RESTING IN BED WITH EYES CLOSED, RR 16. HOME CPAP IN USE. CALL LIGHT IN REACH.
--- NOTE | 2022-05-17 01:44 | NUR ---
Resting eyes closed, using CPAP, fluids and call light at hands reach
--- NOTE | 2022-05-17 06:57 | NUR ---
PT AWAKE, USING cpap, COOP WITH VITALS . OPSITE TO WOUND VAC CHANGED, OSTOMY BAG CHANGED IT WAS LEAKING. PT CFOOPERATIVE. PT C/O R ABD PAIN 04/01 MEDICATED WITH PERCOCET. R LOW ABD FIRM, PITTING EDEMA. RED COLORED. MD AWARE.
--- NOTE | 2022-05-17 07:16 | NUR ---
Report from Tomi Howard RN. Patient lying in bed. Call light in reach, bed rails up X2.
--- NOTE | 2022-05-17 08:58 | NUR ---
AM MEDICATIONS ADMINISTERED. ASSESSMENT COMPLETED. PAIN 9/10 IN ABDOMEN AT THIS TIME. PRN ANALGESIC ADMINISTERED. ZOFRAN GIVEN FOR NAUSEA. ASSIST TO RECLINER. WARM RAG GIVEN TO WASH FACE. DENIES OTHER NEEDS AT THIS TIME. OSTOMY BAG BURPED DUE TO AIR IN BAG. DENIES OTHER NEEDS AT THIS TIME.
--- NOTE | 2022-05-17 16:17 | NUR ---
Up in chair most of today. Ostomy putting out stool. Pain controlled with PRN analgesics. Continues on IV antibiotics. MIGUELITO drains with minimal output, continue to change from milky, thick output to thinner, serosanguinous type drainage. Wound vac continues to suction, no leaks to dressing noted.
--- NOTE | 2022-05-17 19:26 | NUR ---
RECEIVED REPORT FROM DAY SHIFT RN. PATIENT IS RESTING IN BED. CITY DRIVER PRESENT IN ROOM. NO NEEDS NOTED. CALL LIGHT IN REACH.
--- NOTE | 2022-05-17 20:50 | NUR ---
BOOSTER PUMP OPERATOR ROUNDING. PT RESTING IN CHAIR, REQUESTS TO GO TO BED. PT SBA WITH FWW TO BED. TOLERATED WELL. PRIMARY RN AT BEDSIDE. VS OBTAINED. ICE WATER PROVIDED. CALL LIGHT IN REACH. PT DENIES QUESTIONS, CONCERNS, OR NEEDS AT THIS TIME. PRIMARY RN REMAINS AT BEDSIDE.
--- NOTE | 2022-05-17 20:52 | NUR ---
PATIENT ASSESMENT COMPLETED. VITALS TAKEN AND RECORDED. INTAKE AND OUTPUT RECORDED. JPX3 EMPTIED. WOUND VAC IN PLACE AND DRESSING IS C/D/I AND DELIVERING THERAPY AT 120. PATIENTS OSTOMY EMPTIED AND IS PRODUCING BROWN LIQUID. PATIENTS MID LINE INCISION IS OPEN TO AIR AND WELL APPROXIMATED. AROUND ENTRANCE OF ALL JPS REDNESS IS NOTED. PATIENTS G-TUBE FLUSHED AND NEW DRESSING PLACED AROUND G-TUBE. PATIENTS ICE WATER REFRESHED. PATIENT RATES PAIN AT A 6/10, PRN PAIN MEDICATION GIVEN PER ORDER. PATIENT DENIES ANY NAUSEA. PM MEDS GIVEN PER ORDER. IV ABX INFUSING PER ORDER. PATIENT DENIES ANY FURTHER NEEDS. PATIENT REFUSES TO WEAR SCDS AT THIS TIME. CALL LIGHT IN REACH.
--- NOTE | 2022-05-18 01:43 | NUR ---
CALL LIGHT ANSWERED. URINAL EMPTIED. FRESH ICE WATER PROVIDED. PT REPORTS HE IS RESTING WELL. NO FURTHER NEEDS.
--- NOTE | 2022-05-18 02:56 | NUR ---
PATIENTS SCHEDULED IV ABX INFUSING PER ORDER. PATIENT RATES PAIN AT A 5/10 IN HIS ABD, PRN PAIN MEDICATION GIVEN PER ORDER. PATIENTS OSTOMY EMPTIED AND URINALS EMPTIED. PATIENT PROVIDED WITH FRESH ICE WATER. NO FURTHER NEEDS NOTED. PATIENT REPOSTITIONED. PATIENT IS RESTING IN BED WEARING HOME CPAP. CALL LIGHT IN REACH.
--- NOTE | 2022-05-18 04:22 | NUR ---
PATIENT IS RESTING IN BED WEARING HOME CPAP, RR 17. CALL LIGHT IN REACH.
--- NOTE | 2022-05-18 05:47 | NUR ---
PATIENTS VITALS TAKEN AND RECORDED. PATIENTS MIGUELITO'S X3 AND OSTOMY EMPTIED. URINALS EMPTIED. INTAKE AND OUTPUT RECORDED. PATIENT PROVIDED WITH FRESH ICE WATER. PATIENTS WOUND VAC DELINVERING CONT THERAPY AT 120. PATIENTS G-TUBE CLEANED AROUND AND NEW GAUZE PLACED AROUND INSERTION. PATIENTS MIGUELITO'S INSERTION SITES X3 CLEANED AROUND WITH ALCOHOL SWABS AND COVERED WITH GAUZE AND TAPE DUE TO INCREASED REDNESS AT INSERION SITES. ACTECOTE ON LEFT MID ABD IS C/D/I, AND OLD DRAINAGE NOTED. PATIENT DENIES ANY PAIN OR NAUSEA. NO FURTHER NEEDS NOTED. CALL LIGHT IN REACH.
--- NOTE | 2022-05-18 06:30 | NUR ---
PATIENT IS RESTING IN BED. PATIENTS AM MEDS GIVEN PER ORDER. NO FURTHER NEEDS NOTED. CALL LIGHT IN REACH.
--- NOTE | 2022-05-18 07:28 | NUR ---
Report from Sharon Chong RN. Patient lying in bed with CPAP in place and eyes closed. Resp even and unlabored. Allowed to rest at this time. Call light in reach, bed rails up X2.
--- NOTE | 2022-05-18 07:36 | NUR ---
Notified by SYLVIA Gotti, patient's glucose is 69 this AM. Asymptomatic Juice provided. Will reassess.
--- NOTE | 2022-05-18 09:33 | HP ---
[facility] [address], [place] [address] Signed ADMISSION DATE: 05/11/2022 REASON FOR ADMISSION: Intraabdominal abscesses and subcutaneous wound abscess, recent subtotal colectomy and subsequent bowel resections for intraabdominal abscess. HISTORY OF PRESENT ILLNESS: This 66-year-old white man is well known to me from the recent past. He was discharged from the hospital by me on May 06, 2022, after several weeks of stay. 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 Prolonged pressor agents were required perioperatively. 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 Drains were placed. Subsequent recovery was noted and good function of the ileostomy ultimately established. He did have development of purulent drainage from one and subsequently all three drains and imaging studies Dominantly with CT scan showed fluid collections, which have been decreasing over time. He is discharged to home with primary management of Raúl drain, bulb suction drainage as needed with oral antibiotic, Augmentin and Levaquin based on cultures and good function of his ileostomy. The patient has had declined as an outpatient with worsening weakening and decreased oral intake. Notably his initial hospitalization was March 27, 2022. MEDICATIONS: At discharge included Augmentin, Levaquin, and Diflucan as well as treatment with ferrous sulfate for chronic anemia, oxycodone episodically, pantoprazole, and multivitamin. Additional medications have included Ozempic, allopurinol, losartan, spironolactone, indapamide, isosorbide mononitrate, Azelastine eyedrops, fluticasone spray as needed, amlodipine, and simvastatin. His is only marginally functional and does not really care for the patient himself. 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 The drains were managed by the patient including drainage of the bulbs and no elaborate care otherwise. The patient tells me that he has simply not been doing too well at home, not eating well and so on. His evaluation in the emergency room today has included lab studies of CBC, which showed Electronically Signed By: MICHAEL PRO MD 05/18/22 0933 PATIENT NAME: DAVID POTTS HISTORY AND PHYSICAL DATE OF : 57 REPORT #: [id number] PHYSICIAN: MICHAEL PRO MD PCP: Tristan Carrera DO REPORT IS CONFIDENTIAL AND NOT TO BE RELEASED WITHOUT AUTHORIZATION [facility] [address] [place] [id number] Signed elevated white count to 16.1, hematocrit 32.7, and platelet count of 281,000. Differential shows 98.2% neutrophils. Lactic acid was noted to be elevated at 2.2 at admission and with some fluids subsequently noted to be 1.1. I conferred with the ER and recommended IV contrast and enteric contrast CT scan be obtained once again. This showed intraabdominal fluid collections as previously noted with drains reasonably well positioned to accommodate the drainage. There was diffuse bowel wall edema, however, and development of a rim enhancing fluid collection within the inferior upper abdominal pelvis wound measuring 4.2 cm in maximum dimension. This was not previously noted on CT scan more recently obtained from May 02, 2022. He had mild left basilar atelectasis as well. There is a diffusely atrophic pancreas without evidence of mass or inflammation or ductal dilatation. The fluid collections within the abdominal cavity showed a rim enhancing abscess within the right upper pelvis considered to be mildly decreased in size, now measuring 4.4 cm, previously 6.3 cm. An abscess in the inferior left pericolic gutter has resolved. On the right side of the dome of the bladder, there is decreased abscess currently 3.0 cm, previously 4.0 cm. REVIEW OF SYSTEMS: He denies any nausea or vomiting. He has had good function of his ileostomy. He denies any shortness of breath. He has no chest pain. PHYSICAL EXAMINATION: GENERAL: Pleasant white man, cooperative as always. He looks somewhat weak, though he does not look toxic systemically at this time. HEENT: Mucous membranes are slightly dry. CHEST: Shows normal respiratory excursion. Pulse is regular. ABDOMEN: Soft and without focal tenderness. Midline incision still has nichol in it. Inferiorly, there is a minute amount of drainage in the inferior incision. There is no erythema. EXTREMITIES: Show no clubbing, cyanosis, or edema. The ileostomy bag appears to be full of effluent. ASSESSMENT AND PLAN: The patient has decreasing intraabdominal fluid collections returned to the abdomen for irrigation and drainage of the fluid collections had been avoided given the time frame from operation, so as to avoid injury to underlying bowel in what would likely be a hostile abdomen generally. his presentation at this time is actually subcutaneous fluid collection in the inferior aspect of his midline incision, which can and should be drained. The drainage from his three abdominal drains still shows a turbid type fluid. It previously grew Pseudomonas as well as Serratia marcescens to my recollection, though I will have to review the chart entirely. Previously, enterococcus was identified as well. Avoidance of entry to the abdomen is still appropriate so long as progress and resolution of the fluid collections is Electronically Signed By: MICHAEL PRO MD [id number] PATIENT NAME: DAVID POTTS HISTORY AND PHYSICAL DATE OF : 57 REPORT #: [id number] PHYSICIAN: MICHAEL PRO MD PCP: Tristan Carrera DO REPORT IS CONFIDENTIAL AND NOT TO BE RELEASED WITHOUT AUTHORIZATION [facility] [address], [place] [address] Signed ongoing, and at this point it appears to be so; it is the subcutaneous wound that is more problematic in that regard. I have recommended admission to the hospital, IV fluids, and parental antibiotics anticipating drainage of the fluid collection in the inferior aspect of the incision. Entry to the abdomen for additional drainage may still be inadvisable given the likely state of intraabdominal contents, but we will consider this further as well. I discussed this with the patient thoroughly, he understands and agrees. MD ARIA Mane/BRIAN /[id number] cc: Dr. Kelly Copies: ~ Electronically Signed By: MICHAEL PRO MD 05/18/22 0933 PATIENT NAME: DAVID POTTS HISTORY AND PHYSICAL DATE OF : 57 REPORT #: [id number] PHYSICIAN: MICHAEL PRO MD PCP: Tristan Carrera DO REPORT IS CONFIDENTIAL AND NOT TO BE RELEASED WITHOUT AUTHORIZATION
--- NOTE | 2022-05-18 09:35 | NUR ---
Patient sitting up in recliner, eating breakfast. Assessment completed. G-tube flushed. Dr. Villatoro in to see patient at this time. Call light in reach.
--- NOTE | 2022-05-18 13:22 | NUR ---
PER [facility] AT [facility] PATIENT HAS BEEN ACCEPTED AND INSURANCE AUTH RECVD. PATIENT TO DISCHARGE VIA WC VAN TO [facility] 05/18/22 @ 11:15. DR. PRO NOTIFIED AND ORDERS PLACED ON CHART FOR MD TO COMPLETE. ASHLEY NICHOLS RN NOTIFIED OF DISCHARGE PLAN.
--- NOTE | 2022-05-18 14:02 | NUR ---
PATIENT SITTING UP IN CHAIR AT THIS TIME. VITALS AND I&O'S CHARTED. OSTOMY CARE DONE BY PATIENT. CALL LIGHT IN REACH. NO FURTHER NEEDS AT THIS TIME.
--- NOTE | 2022-05-18 14:25 | NUR ---
PT IS ALERT, ORIENTED AND SITTING IN CHAIR IN FRONT OF WINDOW WORKING ON HIS COMPUTER. PT FEELS MUCH BETTER TODAY,HAS GONE FOR A WALK OUTSIDE PT SEEMS TO HAVE A BRIGHT, POSITIVE OUTLOOK. GOOD VISIT WITH PT, REQUESTED PRAYER. WILL FOLLOW NEEDED
--- NOTE | 2022-05-18 16:15 | NUR ---
INTO PATIENT ROOM, PATIENT SITTING IN CHAIR WATCHING TV. UPDATE GIVEN TO PATIENT ABOUT HIS DISCHARGE TO [facility] 05/18/22. PATIENT STATES HE WILL HAVE FAMILY DELIVER CLOTHING, SHOES AND TOILETRIES TO FACILITY. PATIENT EXCITED FOR DISCHARGE IN THE AM. NO FURTHER QUESTIONS FORM PATIENT AT THIS TIME.
--- NOTE | 2022-05-18 16:53 | NUR ---
Up in recliner most of today. Ambulates in hallway with PT. Bed bath this AM and hair washed. 2mL from each MIGUELITO drain today. Contents of MIGUELITO drains no longer milky. Serosanguinous. G-tube flushed. IV antibiotics DC'd today. Plan to DC to [facility] at 1115 in the AM.
--- NOTE | 2022-05-18 19:23 | NUR ---
REPORT RECEIVED FROM DAY SHIFT RN. PT SITTING IN RECLINER ALERT AND ORIENTED. DENIES NEEDS AT THIS TIME. WHITE BOARD UPDATED. CALL LIGHT IN REACH.
--- NOTE | 2022-05-18 20:05 | NUR ---
SBA. PATIENT FROM CHAIR TO BED USING WALKER. V/S AND I&O'S AND BLOOD SUGAR CHECK DONE AND CHARTED. ICE WATER REFRESHED. WARM BLANKET PROVIDED. SIDE TABLE AND CALL LIGHT IN REACH.
--- NOTE | 2022-05-18 21:55 | NUR ---
EVENING ASSESSMENT COMPLETE. SCHEDULED MEDS ADMIN PER EMAR. PT REPORTS ABD PAIN /. PRN FOR PAIN GIVEN PER ORDER. PT DENIES NAUSEA AT THIS TIME. WOUNDVAC TO LOWER ABD INCISION IN PLACE, NO LEAKS NOTED. MIGUELITO X 3 WITH SCANT AMOUNT SEROSANG DRAINAGE. MIDLINE INCISION WELL APPROXIMATED, NO REDNESS OR DRAINAGE NOTED. OSTOMY PATENT WITH BROWN DRAINAGE. G-TUBE TO LEFT UPPER ABD NOTED TO BE TENDER WITH PURULENT DRAINAGE. URINAL EMPTIED OF 300 ML CLEAR YELLOW URINE. FRESH WATER PROVIDED. PERSONAL BELONGINGS WITHIN REACH. PT DENIES QUESTIONS OR CONCERNS. CALL LIGHT IN REACH.
--- NOTE | 2022-05-19 00:35 | NUR ---
CALL LIGHT ANSWERED. EMPTIED 2 URINAL, RINSED THEN PUT BACK IN TO THE BUCKET. PATIENT EMPTIED THE OSTOMY. NO OTHER NEEDS AT THIS TIME.
--- NOTE | 2022-05-19 02:43 | NUR ---
PT RESTING IN BED WITH EYES CLOSED. RESPIRATIONS EVEN. CALL LIGHT IN REACH.
--- NOTE | 2022-05-19 03:34 | NUR ---
IN FOR PRN PAIN ADMIN PER DISCUSSION WITH PT EARLIER. PT RESTING WITH EYES CLOSED. AWAKENS EASILY. REPORTS ABD PAIN 5/10. URINAL EMPTIED. FRESH WATER PROVIDED. NO FURTHER NEEDS. HOME CPAP IN PLACE. CALL LIGHT IN REACH.
--- NOTE | 2022-05-19 06:18 | NUR ---
VS AND I&O COMPLETE. SCHEDULED MEDS ADMIN PER EMAR. PT REPORTS HE IS RESTING COMFORTABLY AT THIS TIME. DENIES NEEDS. CALL LIGHT IN REACH.
--- NOTE | 2022-05-19 07:31 | NUR ---
Report received from [employer] MYLES. Pt resting at this time with no needs, call light in reach. Will continue plan of care.
--- NOTE | 2022-05-19 07:33 | NUR ---
PT IN BED. BS TAKEN. NO NEEDS. RN NOTIFIED. CALL LIGHT WITHIN REACH.
--- NOTE | 2022-05-19 07:40 | NUR ---
PT IN BED. PT ASSISTED UP TO CHAIR BY SYLVIA (MYSELF). WARM BLANKET ANDICE WATER GIVEN. URINAL EMPTIED. LINENE CHANGE. WOUND VAC PLUGGED BACK INTO LDR RN. NO NEEDS. CALL LIGHT WITHIN REACH.
--- NOTE | 2022-05-19 08:45 | NUR ---
Scheduled medications administered and assessment complete. BP meds held at this time as pt BP 98/66. Pt and this RN discuss wound vac appliance, flu shot, medications, home care. Pt A+O.
[2022-05-19] MEDS ORDERED: LEVOFLOXACIN500 MG PO (08:47)
[2022-05-19] MEDS ORDERED: FLUCONAZOLE200 MG PO (08:48)
[2022-05-19] MEDS ORDERED: FERROUS SULFAT325 M2 PO (08:48)
[2022-05-19] MEDS ORDERED: OXYCODON-ACETA1 EAC2 PO (08:49)
[2022-05-19] MEDS ORDERED: MELATONIN3 MG PO (08:50)
--- NOTE | 2022-05-19 09:00 | NUR ---
Faxed orders, PASSR, EMR x 5 days, Blood glucose scale to [facility] at [facility]. Called and confirmed pt will transport by [facility] van at 11:15. In and spoke with Wilfrid. He denies any needs. Wished him luck. Envelope with papers given to Dav ROY at nurses station.
--- NOTE | 2022-05-19 09:14 | NUR ---
PT IN CHAIR. VITALS AND IS AND OS TAKEN. NO NEEDS. CALL LIGHT WITHIN REACH.
--- NOTE | 2022-05-19 09:25 | NUR ---
Flu shot administered, consent signed in chart. Ostomy emptied by patient with this RN assistance.
--- NOTE | 2022-05-19 10:42 | NUR ---
FLUSHED GTUBE WITH 150ML TAP WATER, FLUSHED WELL. DISCONNECTED HOSPITAL WOUND VAC APPLIANCE FROM PATIENT AND PLACED ON COUNTER WITH INSTRUCTIONS NOT TO TAKE TO [facility] THEY HAVE THEIR OWN. PT AND AIDS VERBALIZED UNDERSTANDING.
--- NOTE | 2022-05-19 11:05 | NUR ---
PT READY FOR DISCHARGE. PT DRESSED IN HOSPITAL SCRUBS WITH ONE PERSON ASSIST. DISCHARGE INSTRUCTIONS AND PLAN OF CARE AT [facility] REVIEWED WITH PT. PT VERBALIZES UNDERSTANDING AND STATES HIS QUESTIONS HAVE BEEN ANSWERED. VITAL SIGNS STABLE. IV DC'D PER PROTCOL. GAUZE AND COBAN APPLIED. OSTOMY BAG EMPITED OF 100ML BROWN STOOL PER PT REQUEST. PT UP TO VOID, INDEPENDANTLY. NO ADDITONAL REQUESTS OR CONCERNS. PT TRANSFERS SELF TO WHEELCHAIR VAN TRANSPORT WHEELCHAIR AND IS WHEELED TO FRONT OF THE HOSPITAL TO MEET WHEELCHAIR VAN.
--- NOTE | 2022-05-19 13:29 | NUR ---
PT SITTING IN CHAIR ALERT, ORIENTED AND WORKING ON A CROSSWORD PUZZLE. PT SEEMS READY TO DC TO [facility] LATER THIS AM. GAVE ENCOURAGEMENT AND HAD PRAYER WITH PT. WILL FOLLOW NEEDED
--- NOTE | 2022-05-26 17:56 | OR ---
[facility] [address], [place] [address] Signed DATE OF OPERATION: 05/12/2022 SURGEON: Michael Pro MD PREOPERATIVE DIAGNOSES: 1. Low midline wound abscess (deep subfascial). 2. Multiple intraabdominal abscesses (drained). 3. History of subtotal colectomy with ileostomy greater than six weeks ago. 4. 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 POSTOPERATIVE DIAGNOSES: 1. Low midline wound abscess (deep subfascial). 2. Multiple intraabdominal abscesses (drained). 3. History of subtotal colectomy with ileostomy greater than six weeks ago. 4. 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 5. Frozen hostile abdomen. 6. Open incision, drainage and debridement of low abdominal wall subfascial abscess. 7. Application of wound VAC device. 8. Left sided diagnostic laparoscopy. ANESTHESIA: General, LMA. Ugo Gerald, CHILD AND ADOLESCENT THERAPIST, and local 0.25% Marcaine with epinephrine. 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 Subsequent segmental small bowel infarction required additional operation including resection and re-formation of the end-ileostomy with placement of drains in March as well. The patient has been recovering reasonably well and was discharged from the hospital on May 06, 2022 with three drains in the abdomen, draining purulent material with imaging study showing improving appearance of intraabdominal contents including fluid collections. He was found to have generalized malaise and other issues at home in the past 48 hours, presented to the emergency room, was evaluated including CT scan repeat which shows diminishment of the fluid collections (progressive improvement but with a new fluid collection in the inferior aspect of the midline incision consistent with abscess). His lactic acid was slightly elevated to greater than 2. Subsequently improved with fluid hydration and overall improvement of his situation. Antibiotics had been given outpatient and continued IV for inpatient. Electronically Signed By: MICHAEL PRO MD 05/26/22 1756 PATIENT NAME: DAVID POTTS OPERATIVE REPORT DATE OF : 57 REPORT #: [id number] PHYSICIAN: MICHAEL PRO MD PCP: Tristan Carrera DO REPORT IS CONFIDENTIAL AND NOT TO BE RELEASED WITHOUT AUTHORIZATION [facility] [address], [place] [address] Signed Now that he is improved clinically, I have recommended drainage of the abdominal wound abscess which was quite obvious as well as other additional procedures as necessary. Notably, avoidance of reexploration of the abdomen to more fully clear the fluid collections has been needed as the intraabdominal contents likely would be frozen in this recent time frame from operation. As the patient has been clinically improving steadily, tolerating oral intake and good ileostomy output. Avoidance of laparotomy has been successful allowing for purulent drainage from the three Raúl drains to progress noting decreasing fluid collections over time. The risks of bleeding, infection, need for other indicated procedure, and so forth related to drainage of the subfascial subcutaneous lower wound incision abscess was reviewed with the patient. He understands and wished to proceed. FINDINGS: There remains small amounts of purulent drainage from the three abdominal drains. The skin clips which remain from initial second operation were removed without problem. He was found in the inferior aspect of the incision to have an abscess cavity as well as necrotic fascial edge; retained PDS suture was noted. Deep to the fascia was a plane of granulation tissue unlikely related to bowel proper. Irrigation and debridement and drainage of the abscess cavity was undertaken with cultures obtained as well. Ultimately, wound VAC was applied to this site after securing the more proximal PDS suture to the remaining fascia. So as to better characterize the true state of his intraabdominal cavity through a left mid abdominal open Parth cannula incision, limited laparoscopy was undertaken affirming multiple web-like adhesions as well as bowel loops that appeared viable but almost certainly technical sales representatives of a hostile "frozen" abdomen at this point. PROCEDURE IN DETAIL: The patient was brought to the operating room, given a general LMA type anesthetic. Antibiotic therapy had been undertaken and ongoing. Sequential compression device stockings were used. The abdomen was freed of the ostomy appliance and drains were allowed to remain in situ. The abdomen was prepared with a Betadine based solution and draped sterilely and an Ioban applied so as to control ileostomy effluent. Incision was made through the plastic drape in the midline in the lower aspect allowing for access to the wound clips. They were removed sequentially. The inferior aspect of the incision, a 15 blade was used to incise the skin and dissection carried through the subcutaneous fat. Ultimately encountered was a persistent abscess fluid which was draining from the area. Gram stain and cultures were obtained. Further interrogation of the site showed the low midline fascia to be somewhat necrotic. This was debrided back to a healthy tissue. At the base of the wound was a plane of granulation tissue Electronically Signed By: MICHAEL PRO MD 05/26/22 1756 PATIENT NAME: DAVID POTTS OPERATIVE REPORT DATE OF : 57 REPORT #: [id number] PHYSICIAN: MICHAEL PRO MD PCP: Tristan Carrera DO REPORT IS CONFIDENTIAL AND NOT TO BE RELEASED WITHOUT AUTHORIZATION [facility] [address], [place] [address] Signed for which extreme caution was maintained on the possibility this may represent granulation over small bowel loops. Upon further inspection, that seemed less likely. A remnant PDS in the inferior aspect of the incision was removed in the more proximal segment, which now was no longer pigmented blue was secured. The fascia in this area was secured with 0-PDS suture and tied to the remnant to maintain that suture line. Mindful that intra-abdominal viscera would likely be extremely encumbered by adhesions in this time frame. It was still considered beneficial to know the actual state of affairs within the abdominal cavity. On that basis, a limited opening to the left abdomen out of the way of the midline incision was deemed advisable. A small transverse incision was made in the mid abdomen directly over the rectus sheath. Transverse incision was made using a 15 blade. Using electrocautery and blunt dissection, the anterior rectus sheath was encountered. This was incised transversely. The rectus muscle was spread along its fibers revealing the posterior sheath and its attended peritoneum. This was incised with all due care with careful and meticulous dissection. The posterior sheath and its attended peritoneum were fully incised. With blunt dissection it appeared that omentum was adherent to the posterior rectus sheath. With various maneuvers, blunt dissection was undertaken more fully in the superior medial aspect. Filmy adhesions representing intraabdominal adhesions were encountered. Digital examination showed likely a hostile abdomen with bowel loops matted and inferiorly oriented though it could not be entirely clear at that point. A balloon Parth cannula was then placed into the wound and a limited pneumoperitoneum with CO2 allowed for expansion of the abdominal wall. A 5 mmHg limit of pneumoperitoneum was undertaken. A 5 mm angled laparoscoped was placed into the Parth cannula allowing for intraabdominal inspection. Multiple web-like filmy adhesions were noted over the small bowel viscera. The small bowel viscera that was examined superiorly medially and inferiorly was viable but quite obviously represented a frozen abdomen generally speaking. No further intervention was deemed advisable at this point. The laparoscoped and cannula were removed and the posterior sheath reapproximated with a running #0 PDS suture. The subcutaneous space and muscular layer were irrigated with sterile saline solution. The anterior rectus sheath reapproximated with interrupted 0 PDS suture. Subcutaneous tissue was irrigated and Cal's layer was reapproximated with interrupted 3-0 Vicryl and a few interrupted 3-0 Vicryl used for the deep dermis. 10 mL of 0.25% Marcaine with epinephrine injected locally. An Acticoat silver dressing was then applied to the wound. Additional attention was then directed to the open wound that had undergone debridement and irrigation. There was no evidence of bile leak, purulent egress or anything of that sort at this point. I was more confident that the base of the wound represented granulation of the properitoneal fat rather than bowel loops and on that basis, a small wound VAC sponge was applied to the wound itself. The adhesive was applied over the Electronically Signed By: MICHAEL PRO MD 05/26/22 0410 PATIENT NAME: DAVID POTTS OPERATIVE REPORT DATE OF : 57 REPORT #: [id number] PHYSICIAN: MICHAEL PRO MD PCP: Tristan Carrera DO REPORT IS CONFIDENTIAL AND NOT TO BE RELEASED WITHOUT AUTHORIZATION [address] [address] Signed site. The plastic cut and the wound VAC suction tube applied as per manufacture's instructions and allowing for 120 mm suction pressure. Good seal was noted. An ostomy appliance was cut to appropriate size and reattached to the right side of the abdomen conforming to the ileostomy site. The patient was ultimately extubated and transferred to the recovery room in good condition having suffered no complication. Blood loss was less than 25 mL in aggregate. MD ARIA Mane/ALEXL /[id number] cc: Tristan Carrera DO Copies: Tristan Carrera DO ~ Electronically Signed By: MICHAEL PRO MD 05/26/22 1756 PATIENT NAME: DAVID POTTS OPERATIVE REPORT DATE OF : 57 REPORT #: [id number] PHYSICIAN: MICHAEL PRO MD PCP: Tristan Carrera DO REPORT IS CONFIDENTIAL AND NOT TO BE RELEASED WITHOUT AUTHORIZATION
--- NOTE | 2022-05-26 17:56 | DS ---
[facility] [address], [place] [address] Signed ADMISSION DATE: 05/11/2022 DISCHARGE DATE: 05/19/2022 REASON FOR ADMISSION: Wound infection, inferior aspect, midline incision. HISTORY: This 66-year-old white man has a complex past medical history including . He is admitted at this time with known intraabdominal abscesses, which are resolving and with drains in place, but with development of an inferior incision showing a new fluid collection consistent with wound abscess. The patient was discharged from the hospital on May 06, 2022, after several weeks of stay. 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 Subtotal colectomy with end-ileostomy was performed. Due to the prolonged requirement for pressor agents, he subsequently had re-operation, where two segments of small bowel necrosis were noted requiring resection and re-formation of the end-ileostomy as well as a [id number] jejunojejunostomy. Drains were placed. Somewhat miraculously, he recovered from that. A G-tube was placed as well. He developed purulence from one and then subsequently all three drains, for which additional imaging showed fluid collections. Serial examination and management have shown decreasing volumes of the fluid collections. He was discharged to home, which has been problematic and he has declined as an outpatient with worsened weakening and decreased oral intake. He presented to the emergency room, where his evaluation including the CT scan showed decreased intraabdominal fluid collections and good position of drains, but a new fluid collection in the inferior aspect of the midline incision consistent with abscess. He is admitted for further evaluation and care. A special note, his abdominal drains had been cultured previously showing Pseudomonas as well as Serratia marcescens. He has been on antibiotic therapy as an outpatient including Augmentin and Levaquin. Additionally, he has been on Diflucan. PERTINENT PHYSICAL EXAM: GENERAL: Showed an elderly white man, who did not look systemically toxic in particular compared to his previous admissions. NECK: Trachea is midline. CHEST: Clear. Electronically Signed By: MICHAEL PRO MD 05/26/22 1756 PATIENT NAME: DAVID POTTS DISCHARGE SUMMARY DATE OF : 57 REPORT #: [id number] PHYSICIAN: MICHAEL PRO MD PCP: Tristan Carrera DO REPORT IS CONFIDENTIAL AND NOT TO BE RELEASED WITHOUT AUTHORIZATION [facility] [address], [place] [address] Signed HEART: Regular. ABDOMEN: Somewhat flat and soft and nondistended. The ileostomy is functioning well. Drain showed an opaque mucopurulent discharge, no sign of eileen bile. Low abdominal incision had the clips in place and no sign of significant erythema, but mild tenderness in the inferior aspect. HOSPITAL COURSE: He was fluid resuscitated and underwent operation on May 12, 2022. This included drainage of a purulent cavity in the inferior aspect of the incision. There was no sign of connection to the intraabdominal contents, specifically no evidence of fistula or other problem. The wound VAC was placed. Additionally, he underwent a limited laparoscopy confirming what would be considered a "hostile abdomen." The bowel contents were matted together and filmy adhesions to the abdominal wall to the intraabdominal contents noted. This confirmed the clinical impression that re-exploration to midline incision would be excessively hazardous inducing additional bowel injury and causing fistulization. Postoperatively, he was managed with broad-spectrum antibiotic meropenem. Additional care by hospitalist, was undertaken and managed additionally by Dr. Dennison in my absence. He did undergo blood transfusion increasing his hematocrit to 29 from 21. The patient at the time of discharge is doing well with his wound VAC. He has no evidence of systemic toxicity. His drainage from the wound drains is decreasing and clearing up in its appearance overall. He will be [facility] to [facility] on this occasion for fci. His fci will include management of his drain, simply emptying them, not requiring measurement as well as wound VAC dressing changes every 3-4 days. His G-tube will be flushed on a routine basis. I will see him back in followup either in the office or will make house call depending which is more appropriate given his progress. DISCHARGE MEDICATIONS: Include: 1. Levaquin 500 mg p.o. daily, #10. 2. Fluconazole 200 mg p.o. daily, #10. 3. Ferrous sulfate 325 mg p.o. b.i.d., #90. 4. Percocet 7.5/325 one p.o. as needed for dressing change, #10. 5. Melatonin 3 mg tablets at bedtime for insomnia, #30, refill one. 6. Tylenol plain 1000 mg p.o. q.6 hours p.r.n. pain, #60, refill one. Electronically Signed By: MICHAEL PRO MD 05/26/22 1756 PATIENT NAME: DAVID POTTS DISCHARGE SUMMARY DATE OF : 57 REPORT #: [id number] PHYSICIAN: MICHAEL PRO MD PCP: Tristan Carrera DO REPORT IS CONFIDENTIAL AND NOT TO BE RELEASED WITHOUT AUTHORIZATION [facility] [address], [place] [address] Signed He will resume his usual home medications included: 1. Ozempic 0.5 mg subcu weekly. 2. Allopurinol 300 mg half tab p.o. daily. 3. Losartan 100 mg p.o. daily. 4. Spironolactone 25 mg p.o. daily. 5. Indapamide 1.25 mg tablet p.o. daily. 6. Azelastine 0.05% eyedrops two times daily in affected eyes. 7. Olopatadine 0.1% drops two times daily. 8. Fluticasone two sprays nasally as needed each day. 9. Amlodipine 5 mg p.o. daily. 10. Simvastatin 20 mg p.o. at bedtime. 11. Augmentin 500 mg/125 p.o. t.i.d. with meals #10 days. 12. Pantoprazole 40 mg p.o. daily. 13. Multivitamin one p.o. daily. DISCHARGE DIAGNOSES: 1. Inferior wound abscess, late development; culture showing fungal elements (Dixie, otherwise no growth, but probable staph given gram stain evaluation). 2. History of subtotal colectomy with end-ileostomy for toxic megacolon (March 27, 2022). 3. Status post re-exploration segmental bowel resection x2 with revision of ileostomy for liquefactive necrosis related to perioperative pressor requirements. 4. Diabetes mellitus. 5. Gout. 6. Insomnia. Michael Pro MD /MODL /[id number] cc: Tristan Carrera DO Electronically Signed By: MICHAEL PRO MD 05/26/22 1756 PATIENT NAME: DAVID POTTS DISCHARGE SUMMARY DATE OF : 57 REPORT #: [id number] PHYSICIAN: MICHAEL PRO MD PCP: Tristan Carrera DO REPORT IS CONFIDENTIAL AND NOT TO BE RELEASED WITHOUT AUTHORIZATION [address] [address] Signed Copies: Tristan Carrera DO ~ Electronically Signed By: MICHAEL PRO MD 05/26/22 1756 PATIENT NAME: DAVID POTTS DISCHARGE SUMMARY DATE OF : 57 REPORT #: [id number] PHYSICIAN: MICHAEL PRO MD PCP: Tristan Carrera DO REPORT IS CONFIDENTIAL AND NOT TO BE RELEASED WITHOUT AUTHORIZATION
== END 2022-05-19 11:15 | DRG 856 ==
LOC: ED 09:26 → MS 15:56
PROVIDERS: ADMIT Surgery; ATTEND Surgery
PROC: 0WJG4ZZ Inspection of Peritoneal Cavity, Percutaneous Endoscopic Approach (ICD-10-PCS; 2022-05-12)
PROC: 0J9C0ZZ Drainage of Pelvic Region Subcutaneous Tissue and Fascia, Open Approach (ICD-10-PCS; 2022-05-12)
PROC: 30233N1 Transfusion of Nonautologous Red Blood Cells into Peripheral Vein, Percutaneous Approach (ICD-10-PCS; principal; 2022-05-12 12:30)
DX: T81.43XA Infection following a procedure, organ and space surgical site, initial encounter (principal); K65.1 Peritoneal abscess; L02.211 Cutaneous abscess of abdominal wall; Z20.822 Contact with and (suspected) exposure to COVID-19; E11.9 Type 2 diabetes mellitus without complications; I95.9 Hypotension, unspecified; M10.9 Gout, unspecified; G47.00 Insomnia, unspecified; I12.9 Hypertensive chronic kidney disease with stage 1 through stage 4 chronic kidney disease, or unspecified chronic kidney disease; N18.30 Chronic kidney disease, stage 3 unspecified; E11.22 Type 2 diabetes mellitus with diabetic chronic kidney disease; D64.9 Anemia, unspecified; J45.909 Unspecified asthma, uncomplicated; G80.9 Cerebral palsy, unspecified; Z96.652 Presence of left artificial knee joint; Z96.612 Presence of left artificial shoulder joint; Z90.49 Acquired absence of other specified parts of digestive tract; Z98.890 Other specified postprocedural states; Z88.8 Allergy status to other drugs, medicaments and biological substances; Z91.040 Latex allergy status; Z79.899 Other long term (current) drug therapy; Y83.6 Removal of other organ (partial) (total) as the cause of abnormal reaction of the patient, or of later complication, without mention of misadventure at the time of the procedure
CPT/HCPCS: 00400; 36415; 36430; 71045; 74177; 80053; 81001; 83605; 83690; 83735; 84134; 85025; 85060; 86850; 86900; 86901; 86922; 87040; 87070; 87075; 87077; 87205; 87502; 93005; 93010; 96361; 96375; 96376; 97110; 97116; 97162; 99285-25; A9270; C9803; J1170; J1200; J1650; J1815; J1956; J2001; J2185; J2370; J2405; J2550; J2704; J3010; J3475; J7030; J7121; P9016; Q9967; U0003

== ENCOUNTER 2022-06-05 14:08 | Emergency (ER) | payer OTHER ==
[~2022-06-05] VITALS: Ht 172.7 cm; Wt 70.8 kg
[~2022-06-05 14:08] MED LIST changes: +MELATONIN3 MG PO
--- OUTSIDE RECORDS SUMMARY | 2022-06-05 14:10 | XMS ---
PreManage Notification: DAVID POTTS Security Machine Wedger Events No recent Security Events currently on file CRITERIA MET - PDM - [facility] - 2 Visits in 30 Days CARE PROVIDERS NANCY FOX Internal Medicine Current PHONE: [phone] DAMION SEPULVEDA Nurse Practitioner: Family Current PHONE: Unknown FERNANDO HARTLEY Edge Cutter Current JULIAN VICTOR PHONE: [phone] JEREMIAH RESENDIZ Internal Medicine Current PHONE: [phone] Tristan Carrera DO [facility] Current PHONE: Unknown CARLOS BOSE I. Physician Human Service Worker Current PHONE: Unknown EULA HURTADO Nurse Practitioner Current PHONE: Unknown DIANA NEWSOME Nurse Practitioner Rachel FUENTES PHONE: [phone] [facility] Current PHONE: Unknown [facility]: [phone] JACKSON GREENE Physician Human Service Worker Current PHONE: Unknown Max has no Care Guidelines for this patient. Tamara VISIT COUNT (12 MO.) 4 PEGGY Andersen TOTAL 4 NOTE: Visits indicate total known visits. ED/UCC VISIT TRACKING (12 MO.) 06/05/2022 14:08 [facility] [place] TYPE: Emergency COMPLAINT: - POSS BLOOTCLOT 05/28/2022 18:26 [facility] TYPE: Emergency COMPLAINT: - BLOOD PRESSURE PROBLEM 05/11/2022 09:27 [facility] TYPE: Emergency COMPLAINT: - SHOB 03/30/2022 07:20 [facility] [place] TYPE: Emergency COMPLAINT: - LOWER ABD PAIN, N/V, HIGH B/SUGAR, SOB INPATIENT VISIT TRACKING (12 MO.) 05/11/2022 15:[address] [facility] [place] TYPE: Medical Surgical COMPLAINT: - INTRA ABD ABSCESSES,SUBCUTANEOUS WOUND ABSCESS DIAGNOSES: - Anemia, unspecified - Type 2 diabetes mellitus with diabetic chronic kidney disease - Other mcfp (current) drug therapy - Gout, unspecified - Contact with and (suspected) exposure to COVID-19 - Hypertensive chronic kidney disease with stage 1 through stage 4 chronic kidney disease, or unspecified chronic kidney disease - Cerebral palsy, unspecified - Type 2 diabetes mellitus without complications - Removal of other organ (partial) (total) as the cause of abnormal reaction of the patient, or of later complication, without mention of misadventure at the time of the procedure - Insomnia, unspecified - Presence of left artificial knee joint - Acquired absence of other specified parts of digestive tract - Peritoneal abscess - Presence of left artificial shoulder joint - Cutaneous abscess of abdominal wall - Infection following a procedure, organ and space surgical site, initial encounter - Infection following a procedure, other surgical site, initial encounter - Allergy status to other drugs, medicaments and biological substances - Chronic kidney disease, stage 3 unspecified - Unspecified asthma, uncomplicated - Hypotension, unspecified - Other specified postprocedural states - Latex allergy status 03/30/2022 13:[address] [facility] [place] TYPE: Medical Surgical COMPLAINT: - SEVERE SEPSIS DIAGNOSES: - Bloodstream infection due to central venous catheter, initial encounter - Hypertensive chronic kidney disease with stage 1 through stage 4 chronic kidney disease, or unspecified chronic kidney disease - Presence of left artificial shoulder joint - Peritoneal abscess - Acute kidney failure with tubular necrosis - Presence of left artificial knee joint - Peritoneal abscess - Gastro-esophageal reflux disease without esophagitis - Allergy status to other antibiotic agents - Other ore digger (current) drug therapy - Infection following a procedure, deep incisional surgical site, initial encounter - Acute dilatation of stomach - Hypertensive chronic kidney disease with stage 1 through stage 4 chronic kidney disease, or unspecified chronic kidney disease - Acquired absence of other specified parts of digestive tract - Diverticulitis of small intestine with perforation and abscess without bleeding - Gastro-esophageal reflux disease without esophagitis - Sepsis, unspecified organism - Adverse effect of unspecified systemic antibiotic, initial encounter - Type 2 diabetes mellitus with hyperglycemia - Other secondary thrombocytopenia - Removal of other organ (partial) (total) as the cause of abnormal reaction of the patient, or of later complication, without mention of misadventure at the time of the procedure - Acute kidney failure with tubular necrosis - Type 2 diabetes mellitus with diabetic chronic kidney disease - Chronic kidney disease, stage 3 unspecified - Other ore digger (current) drug therapy - Acute dilatation of stomach - Severe sepsis with septic shock - Bloodstream infection due to central venous catheter, initial encounter - Type 2 diabetes mellitus with hyperglycemia - halfway (current) use of antibiotics - Severe sepsis with septic shock - Contact with and (suspected) exposure to COVID-19 - Acute kidney failure, unspecified - Other secondary thrombocytopenia - Severe sepsis without septic shock - Contact with and (suspected) exposure to COVID-19 - fabrication specialist (current) use of antibiotics - Acquired absence of other specified parts of digestive tract - Infection following a procedure, deep incisional surgical site, initial encounter - Hyperkalemia - Toxic megacolon - Other specified postprocedural states - Type 2 diabetes mellitus with diabetic chronic kidney disease - Other specified postprocedural states - Adverse effect of unspecified systemic antibiotic, initial encounter - Removal of other organ (partial) (total) as the cause of abnormal reaction of the patient, or of later complication, without mention of misadventure at the time of the procedure - Presence of left artificial shoulder joint - Acute infarction of small intestine, extent unspecified - Toxic megacolon - Chronic kidney disease, stage 3 unspecified - Acute infarction of small intestine, extent unspecified - Diverticulitis of small intestine with perforation and abscess without bleeding - Presence of left artificial knee joint - Hyperkalemia - Allergy status to other antibiotic agents [email or web address]
[2022-06-05] MEDS ORDERED: ELIQUIS5 MG PO (15:41)
== END 2022-06-05 16:02 | disposition home or self-care (01) ==
LOC: ED 14:08
DX: I82.412 Acute embolism and thrombosis of left femoral vein (principal); I82.4Z2 Acute embolism and thrombosis of unspecified deep veins of left distal lower extremity; E11.22 Type 2 diabetes mellitus with diabetic chronic kidney disease; N18.30 Chronic kidney disease, stage 3 unspecified; I12.9 Hypertensive chronic kidney disease with stage 1 through stage 4 chronic kidney disease, or unspecified chronic kidney disease; J45.909 Unspecified asthma, uncomplicated; Z91.040 Latex allergy status; Z88.8 Allergy status to other drugs, medicaments and biological substances; Z79.899 Other long term (current) drug therapy
CPT/HCPCS: 99283-25

== ENCOUNTER 2022-06-08 15:06 | Inpatient (IN) | payer OTHER ==
[~2022-06-08] VITALS: Ht 172.7 cm; Wt 71.3 kg
[~2022-06-08 15:06] MED LIST changes: +ELIQUIS5 MG PO
--- OUTSIDE RECORDS SUMMARY | 2022-06-08 15:09 | XMS ---
PreManage Notification: DAVID POTTS Security Diffusion Operator Events No recent Security Events currently on file CRITERIA MET - [facility] - 2 Visits in 30 Days - PDMP CARE PROVIDERS NANCY FOX Internal Medicine Current PHONE: [phone] DAMION SEPULVEDA Nurse Practitioner: Family Current PHONE: Unknown FERNANDO HARTLEY [employer] Current JULIAN VICTOR PHONE: [phone] JEREMIAH RESENDIZ Internal Medicine Current PHONE: [phone] Tristan Carrera DO [facility] Current PHONE: Unknown CARLOS BOSE I. Physician Criminal Investigative Agent Current PHONE: Unknown EULA HURTADO Nurse Practitioner Current PHONE: Unknown DIANA NEWSOME Nurse Practitioner Rachel FUENTES PHONE: [phone] [facility] Current PHONE: Unknown [facility] PHONE: [phone] JACKSON GREENE Physician Criminal Investigative Agent Current PHONE: Unknown Max has no Care Guidelines for this patient. Tamara VISIT COUNT (12 MO.) 5 PEGGY Andersen TOTAL 5 NOTE: Visits indicate total known visits. ED/UCC VISIT TRACKING (12 MO.) 06/08/2022 15:07 [facility] TYPE: Emergency COMPLAINT: - ABDOMINAL PAIN 06/05/2022 14:08 [facility] TYPE: Emergency COMPLAINT: - POSS BLOOTCLOT 05/28/2022 18:26 [facility] TYPE: Emergency COMPLAINT: - BLOOD PRESSURE PROBLEM 05/11/2022 09:27 [facility] TYPE: Emergency COMPLAINT: - SHOB 03/30/2022 07:20 [facility] TYPE: Emergency COMPLAINT: - LOWER ABD PAIN, N/V, HIGH B/SUGAR, SOB INPATIENT VISIT TRACKING (12 MO.) 05/11/2022 15:56 [facility] TYPE: Medical Surgical COMPLAINT: - INTRA ABD ABSCESSES,SUBCUTANEOUS WOUND ABSCESS DIAGNOSES: - Insomnia, unspecified - Presence of left [...] specified postprocedural states - Latex allergy status - Anemia, unspecified - Type 2 diabetes mellitus with diabetic chronic kidney disease - Other termite control representative (current) drug therapy - Gout, unspecified - [...] misadventure at the time of the procedure 03/30/2022 13:[address] [facility] TYPE: Medical Surgical COMPLAINT: - SEVERE SEPSIS DIAGNOSES: - Type 2 diabetes mellitus with diabetic chronic kidney disease - Chronic kidney disease, stage 3 unspecified - Acute kidney failure with tubular necrosis - Acute dilatation of stomach - Severe sepsis with septic shock - Other termite control representative (current) drug therapy - Type 2 diabetes mellitus with hyperglycemia - termite control representative (current) use of antibiotics - Severe sepsis with septic shock - Bloodstream infection due to central venous catheter, initial encounter - Acute kidney failure, unspecified - Other secondary thrombocytopenia - Contact with and (suspected) exposure to COVID-19 - Contact with and (suspected) exposure to COVID-19 - correction (current) use of antibiotics - Acquired absence of other specified parts of digestive tract - Severe sepsis without septic shock - Hyperkalemia - Toxic megacolon - Infection following a procedure, deep incisional surgical site, initial encounter - Type 2 diabetes mellitus with diabetic chronic kidney disease - Other specified postprocedural states - Adverse effect of unspecified systemic antibiotic, initial encounter - Other specified postprocedural states - Presence of left artificial shoulder joint - Acute infarction of small intestine, extent unspecified - Removal of other organ (partial) (total) as the cause of abnormal reaction of the patient, or of later complication, without mention of misadventure at the time of the procedure - Chronic kidney disease, stage 3 unspecified - Acute infarction of small intestine, extent unspecified - Toxic megacolon - Presence of left artificial knee joint - Hyperkalemia - Allergy status to other antibiotic agents - Diverticulitis of small intestine with perforation and abscess without bleeding - Hypertensive chronic kidney disease with stage 1 through stage 4 chronic kidney disease, or unspecified chronic kidney disease - Presence of left artificial shoulder joint - Bloodstream infection due to central venous catheter, initial encounter - Acute kidney failure with tubular necrosis - Presence of left artificial knee joint - Peritoneal abscess - Peritoneal abscess - Allergy status to other antibiotic agents - Other termite control representative (current) drug therapy - Gastro-esophageal reflux disease without esophagitis - Acute dilatation of stomach - Hypertensive chronic kidney disease with stage 1 through stage 4 chronic kidney disease, or unspecified chronic kidney disease - Acquired absence of other specified parts of digestive tract - Infection following a procedure, deep incisional surgical site, initial encounter - Gastro-esophageal reflux disease without esophagitis - Sepsis, unspecified organism - Diverticulitis of small intestine with perforation and abscess without bleeding - Type 2 diabetes mellitus with hyperglycemia - Other secondary thrombocytopenia - Removal of other organ (partial) (total) as the cause of abnormal reaction of the patient, or of later complication, without mention of misadventure at the time of the procedure - Adverse effect of unspecified systemic antibiotic, initial encounter [email or web address]
--- NOTE | 2022-06-08 20:20 | NUR ---
PT BROUGHT TO CCU ROOM 130 FROM ED, REPORT RECEIVED FROM ALFRED MYLES. PT IS ALERT AND ORIENTED, TRANSFERRED TO BED BY DRAW SHEET. ANSWERS ADMITTING QUESTIONS APPROPRIATLEY. RATES HIS ABDOMINAL PAIN 6/10, STATES HE IS FEELING MUCH BETTER AT THIS TIME AFTER RECEIVING THE PAIN MEDICATION IN ED AND IS ABLE TO SLEEP OFF AND ON BETWEEN ADMISSION QUESTIONS. HAS NO REQUESTS AT THIS TIME. BOWEL SOUNDS ACTIVE, PT HAS COLOSTOMY PUTTING OUT DARK BROWN LIQUID. PT ALSO HAS 3 MIGUELITO'S, 2 ON LEFT SIDE OF ABDOMEN AND ONE OF RIGHT. HE HAS AN OLD SURGICAL SITE IN MID ABDOMEN THAT IS ATTACHED TO A WOUND VAC THAT IS FUCTIONING.
--- NOTE | 2022-06-08 21:29 | NUR ---
REPORT RECEIVED FROM PASCUAL MYLES. PATIENT RESTING IN BED. DENIES NEEDS AT THIS TIME. CALL LIGHT IN REACH. ORIENTED TO ROOM AND CALL LIGHT. LIGHTS DIMMED FOR COMFORT.
--- NOTE | 2022-06-08 23:27 | NUR ---
PATIENT RESTING IN BED WITH EYES CLOSED. RESPIRATIONS EVEN AND UNLABORED. CALL LIGHT IN REACH. CAN MAKE NEEDS KNOWN. VS STBALE. URINE DRAINING TO BEDSIDE BAG.
[2022-06-09] MEDS ORDERED: GAS RELIEF80 MG PO (02:34)
--- NOTE | 2022-06-09 04:37 | NUR ---
PATIENT RESTING IN BED WITH EYES CLOSED. INTERMITTENT HICCUPS NOTED. VS STABLE. CALL LIGHT IN REACH.
--- NOTE | 2022-06-09 05:37 | NUR ---
PATIENT CALLED AND REPORTED ABD PAIN AND NAUSEA. PRN PAIN MEDS GIVEN WITH GLENIS AND DR SORTO CONTACTED FOR VERBAL ORDERS FOR IV PHENERGAN.
--- NOTE | 2022-06-09 07:30 | NUR ---
REPORT RECIEVED. PATIENT IS RESTFUL IN BED.
--- NOTE | 2022-06-09 08:00 | NUR ---
ASSESSMENT DONE. C/O ABD DISCOMFORT, STATES THE PAIN IS LESS THAN IT WAS EARLIER. WOUND VAC INTACT, COLOSTOMY BAG INTACT AND EMPTIED FOR 300 ML OF DARK LIQUID STOOL. MIGUELITO DRAINS X 3 INTACT, C/O WEAKNESS. TALKED WITH PATIENT ABOUT POC FOR THE DAY INDICATES UNDERSTANDING. SITTING UP IN BED READY TO EAT BREAKFAST.
--- NOTE | 2022-06-09 08:29 | NUR ---
MED REC COMPLETE
--- NOTE | 2022-06-09 08:50 | NUR ---
Spoke with Wilfrid. He cont. to reside at [facility]. He uses a cane and shower chair. This week he required a walker due to weakness. Pt was diagnosed with a DVT on 06.05.22. Pt cont. with an ostomy, 3 MIGUELITO drains in his abd, and a wound vac. A dunn was placed on admission. He denies needs for any DME and plans on return to [place]. He does state he is feeling better and his progress is very slow.
--- NOTE | 2022-06-09 09:20 | NUR ---
TOOK BREAKFAST FAIR. C/O SLIGHT INCREASE IN NAUSEA AND PAIN AFTER EATING. NO TREATMENT GIVEN. ONEIL CATH IS PATENT.
--- NOTE | 2022-06-09 10:47 | NUR ---
NO CHANGES, PATIENT IS IN ROOM.
--- NOTE | 2022-06-09 12:40 | NUR ---
C/O ABD PAIN 03/01, C/O NAUSEA. OXYCODONE 12.5 MG PO AND PHENERGAN 12.5 MG IV GIVEN.
--- NOTE | 2022-06-09 12:50 | NUR ---
TRANSFER ORDERS TO MED-SURG RECIEVED.
--- NOTE | 2022-06-09 13:00 | NUR ---
MONITOR DC'D, ONEIL CATH DC'D PER DR. SORTO'S ORDERS.
--- NOTE | 2022-06-09 13:22 | NUR ---
IRON INFUSION HUNG. PATIENT IS SLEEPING WITH HOB ELEVATED. PATIENT IS IN ROOM.
--- NOTE | 2022-06-09 13:30 | NUR ---
IRON INFUSION COMPLETE.
--- NOTE | 2022-06-09 13:50 | NUR ---
REPORT TO MED-SURG.
--- NOTE | 2022-06-09 13:53 | NUR ---
REPORT TO MED-SURG.
--- NOTE | 2022-06-09 14:10 | NUR ---
TO MED-SURG VIA BED.
--- NOTE | 2022-06-09 14:37 | NUR ---
Pt transfered from ICu
--- NOTE | 2022-06-09 15:11 | NUR ---
pt coop with transfer assessments. coop with vitals, tolerating liquids well, no emesis. On room air, lungs clear t/o dim at bases bilat. no cough, alert, oriented, pleasant and coop. abd soft, tender, fidel, R stoma draining dark colored bm. Has been guiac negative since admit. fidel, stoma bag changed as it was leaking. Pt able to empty own stoma. R MIGUELITO with creamy/milky thick, foul smelling drainage. Scant amount on the other 2 MIGUELITO on Left side, covered with gauze. FT L upper abd was flushed by CCU prior to transfer. midline abd incision covered with opsite/wound vac to lower end. draining dark colored drainage. IV RH field start, NA bicarb infusing. call light and fluids at bedside. in room.
--- NOTE | 2022-06-09 16:13 | NUR ---
resting, eyes closed, on room air, no s/sx distress call light and fluids at bedside
--- NOTE | 2022-06-09 17:03 | NUR ---
RESTING, EYES CLOSED, NO DISTRESS, ON ROOM AIR, IVF INFUSING W/O PROBLEMS. HAS VOIDED EARLIER AND AGAIN NOW. TOLERATING LIQUIDS WELL, NO EMESIS, CALL LIGHT AT BEDSIDE, AT BEDSIDE
--- NOTE | 2022-06-09 17:50 | NUR ---
Repositioned in bed, eating, no c/o pain.
--- NOTE | 2022-06-09 19:05 | NUR ---
SHIFT REPORT RECEIVED FROM DAYSHIFT RN SELENA AT BEDSIDE. pt AWAKE AND RESTING IN BED, ON RA. RR EVEN AND UNLABORED, NO DISTRESS NOTED. IV SITE FLUSHED D/T SOME REPORT OF DISCOMFORT, FLUSHES WNL AND BRISK BLOOD RETURN NOTED. pt REPORTS DISCOMFORT RESOLVED. WOUND VAC AT CONT. SUCTION, MIGUELITO DRAINS X3 IN PLACE. NO NEEDS REPORTED, CALL LIGHT IN REACH.
--- NOTE | 2022-06-09 20:30 | NUR ---
ASSESSMENT COMPLETE, NEW BAG IV FLUIDS HUNG AND INFUSING DIRECTED. IV SITE WNL, pt DENEIS PAIN AT IV SITE. WOUND VAC WNL, AT CONT. SUCTION AT 120MMHG. pt DENIES NAUSEA, DESCRIBES ABD PAIN TOLERABLE. DENIES NEED FOR PAIN MEDICATION AT THIS TIME (pt DOES NOT RATE ON 0/10 PAIN SCALE). MIGUELITO DRAINS X3 INTACT AND PATENT, MIGUELITO DRAIN #1 AND #2 OUTPUT YELLOW/SEROSANGUINEOUES IN COLOR, MIGUELITO DRAIN OUTPUT ON #3 MILKY IN COLOR AND THICK. STOMA SITE TO RLQ WNL, BEEFY RED IN COLOR WITH OUTPUT CONTENTS GREEN AND CHUNKY. NO ADDITIOANL NEEDS, CALL LIGHT IN REACH.
--- NOTE | 2022-06-09 22:00 | NUR ---
OILFIELD PLANT AND FIELD OPERATOR UNABLE TO FIND A REPLACEMENT CANNISTER FOR PT WOUND VAC; CALLED [facility], THEY WILL HAVE ONE READY AT THE DESK. OILFIELD PLANT AND FIELD OPERATOR HAD ANOTHER STAFF PERSON GO PICK IT UP.
--- NOTE | 2022-06-09 22:00 | NUR ---
prn pain medication and scheduled eliquis given, see emar. dr adhikari called d/t pt reporting inability to sleep and per med rec pt takes 6mg po melatonin at home, dr adhikari to place orders. bp rechecked and improved, pt chase lightheadedness and dizziness. wound vac canister "full" and alarming, no new canisters available as it is the one from [place]. conveyor line battery charger to discuss with guest house manager maria teresa. conveyor line battery chargermarianna simmons updated and aware of above information.
--- NOTE | 2022-06-09 22:31 | NUR ---
PT CALLED, REQUESTED URINAL. ASSISTED. INFORMED HIM THAT A STAFF MEMBER WAS GOING TO [facility] TO GET ANOTHER CANNISTER FOR HIS WOUNDVAC.
--- NOTE | 2022-06-09 23:53 | NUR ---
NEW CANISTER FOR WOUND VAC IN PLACE AND WOUND VAC REMAISN AT CONT. SUCTION AT 120MMHG. WOUND VAC WNL. pt CLARI WRIGHT NEEDS OR CONCERNS, CALL LIGHT IN REACH.
--- NOTE | 2022-06-10 01:57 | NUR ---
PATIENT IS RESTING IN BED WITH EYES CLOSED, RR 17. CALL LIGHT IN REACH.
--- NOTE | 2022-06-10 02:06 | NUR ---
VERBAL REPORT GIVEN TO SHAR ZHU, QUESTIONS ANSWERED. SHAR ZHU TO TAKE OVER CARE OF pt AT THIS TIME.
--- NOTE | 2022-06-10 03:17 | NUR ---
PATIENT IS RESTING IN BED WITH EYES CLSOED, RR 17. CALL LIGHT IN REACH.
--- NOTE | 2022-06-10 05:48 | NUR ---
IV COMPLETED INFUSING. PATIENT IS NOW SL PER ORDER. ALL DRAINS EMTIED. VITALS TAKEN AND RECORDED. URINAL EMPTIED. INTAKE AND OUTPUT RECORDED. PATIENTS WOUND VAC IN PLACE AND IS @ 120. PATIENT DENIES ANY PAIN OR NAUSEA. NO FURTHER NEEDS NOTED. CALL LIGHT IN REACH.
--- NOTE | 2022-06-10 08:13 | NUR ---
PT AWAKE, ALERT AND ORINETED, ON ROOM AIR, CLEAR LUNGS, MIDLINE ABD LOW INCICION WOUND VAC IN PLACE, R LOW ABD STOMA AND R MID ABD MIGUELITO#1 INPLACE, L LOW AND MID ABD MIGUELITO#2 AND #[address], UPPER L ABD FEEDING TUBE IN PLACE. SL PATENT. UP TO CHAIR 1PA/FWW, WEAK LE. WALKED WELL, SLIGHT UNSTEADINESS. LEGS ELEVATED, CALL LIGHT AT HANDS REACH, FRESH FLUIDS AT BEDSIDE
--- NOTE | 2022-06-10 10:50 | NUR ---
Pt doing well denies needs. May dc today per Dr. Jin depending on labs and Echo. Notified [place] pt may dc today or tomorrow. I will update when I know for sure.
--- NOTE | 2022-06-10 11:26 | NUR ---
C/O 5/10 ABD PAIN, AND FEELING NAUSEATED, MEDICATED WITH TYLENOL PO AND PHENERGAN 12.5MG IV. NS IVF INFUSING W/O PROBLEMS. RECEIVED K REPLACEMENT PO. EARLIER, AT BEDSIDE
--- NOTE | 2022-06-10 12:42 | NUR ---
Repositions self in bed, eating, no further c/o pain or n/v. in room
--- NOTE | 2022-06-10 13:46 | NUR ---
pt emptied own stoma bag, wanted it changed. new stoma bacg applied, stoma area pink, normal looking.
--- NOTE | 2022-06-10 15:34 | NUR ---
ATTEMPTED TO TALK TO PATIENT TODAY X3 BUT HE WAS BUSY WITH NURSING CARES. WILL TRY AGAIN TOMORROW. DIETARY KNOWS HIS FOOD PREFERENCES FROM PREVIOUS ADMISSIONS. HE PREFERS GLUTEN-FREE, VEGETARIAN, AND NO COW'S MILK TO DRINK. THESE ARE IN OUR MEAL IQ SYSTEM.
--- NOTE | 2022-06-10 15:50 | NUR ---
Notified by Daniel at [facility]. They are awaiting auth, pt was been gone 3 days and his insurance requires an auth for him to return. He will call me in the am to let me know if he has recieved auth.
--- NOTE | 2022-06-10 17:40 | NUR ---
Pt was up to chair x1 earlier on shift, tolerated fair. Back to bed, repositins in bed. On room air, lungs clear, was medicated twice per abd pain. midline abd wound vac in place. L abd feeding tube patent, MIGUELITO #2 with brown colored drainage scant amount and MIGUELITO#3 with reddish drainage. R and MIGUELITO#1 with milky fouls smelling small amount of drainage. R stoma was draining dark stook, yellow colored at this time, stoma bag and wafer were changed at pts request earlier on shift. Pt encouraged and did own emptying of stoma contents.. slihgt edema to LE elevated. IVF insuing w/o problems, tolerating diet well, was medicated w phenergan mid shift, no further c/o. tolerating liquids well. uses urinal voiding QS, uses call light, visited
--- NOTE | 2022-06-10 18:35 | NUR ---
PT UP 1PA/FWW, WALKED TO BR, DID OWN ORAL CARE AND HS SDLS. WALKED BACK TO CHAIR AND THEN BACK TO BR, VOIDED IN TOILET, BACK TO CHAIR, TOLERATED WELL. WOUND VAC IN PLACE. NO FURTHER C/OPAIN AT THIS TIME
--- NOTE | 2022-06-10 20:30 | NUR ---
CALL LIGHT ANSWERED, pt WISHES TO SPEAK TO HIS NURSE. NURSE UNAVAILABLE AND IN ANOTHER pt ROOM, THIS RN IN ROOM TO SPEAK WITH pt. pt REPORTS FRUSTRATION THAT HIS WOUND VAC HAS NOT BEEN CHANGED. pt REPORTS FACILITY STAFF AT [facility] CHANGE WOUND VAC "EVERY 4 DAYS" AND WOUND VAC WAS DUE TO BE CHANGED ON WEDNESDAY PER pt. GEOSPATIAL DEVELOPER CONSULT IN PLACE FOR THIS PURPOSE PER CHARGE ROUNDING REPORT. THERAPEUTIC COMMUNICATION PROVIDED AND THIS RN DISCUSSED WITH PRIMARY RN ALFRED. PRIMARY RN ALFRED TO CHANGE WOUND VAC AFTER EVENING MED PASS AND pt VERBALIZED UNDERSTANDING. pt THEN STATES, "OKAY, TELL MY NURSE ALFRED I APPRECIATE IT VERY MUCH. THANK YOU.". NO ADDITIONAL NEEDS OR CONCERNS, IRON HANDLER NAA ALSO AWARE AND UPDATED.
--- NOTE | 2022-06-10 20:47 | NUR ---
DISCUSSED POC WITH PATIENT, STATES " I AM TIRED OF GETTING JACKED AROUND WITH MY PLAN OF CARE, I AM FRUSTRATED THAT NOBODY CHANGED MY WOUND VACUUM TODAY" I REASSURED PATIENT. PROVIDED PLAN TO ADMINISTER PAIN MEDICATION, CURRENTLY PAIN RATING 7/10 PAIN SCALE. ALLOWING 1 HOUR FOR PAIN PO PAIN MEDICATION TO TAKE EFFECT, ADMINISTERED NORCO AND TYLENOL PRN PER OCT. THEN WILL PROVIDE WOUND VAC CHANGE. WARM BLANKETS PROVIDED, CALL LIGHT WITHIN REACH. NS INFUSING AT 100 ML/ HR OF CURRENTLY 1 OF 2 BAGS.
--- NOTE | 2022-06-10 21:13 | NUR ---
call light answered, iv pump alarming. issue resolved. iv site wnl, no additional needs or concerns verbalized. call light in reach.
--- NOTE | 2022-06-10 21:36 | NUR ---
CALL LIGHT ANSWERED, IV PUMP ALARMING. SECOND AND FINAL BAG IV FLUIDS (NS) HUNG AND INFUSING DIRECTED. IV SITE WNL, WARM BLANKET ALSO PROVIDED PER pt REQUEST. pt DENIES ADDITIONAL NEEDS OR CONCERNS.
--- NOTE | 2022-06-10 23:00 | NUR ---
2100 PLAN OF CARE WAS DISCUSSED WITH PATIENT TO CHANGE WOUND VACUUM. PATIENT VERBALIZED FRUSTRATIONS WITH NOT HAVING THE WOUND VACUUM CHANGED EARLIER, SPOKE WITH CHARGE NURSE. THIS NURSE REASSURED PATIENT THAT WOULD BE ABLE TO TAKE PICTURES AND MEASURE, AND ALSO PAIN CONTROL DURING DRESSING CHANGE. 2200 ADMINISTERED PO OXYCODONE AND TYLENOL PER MAR, DISCUSSED WITH PATIENT WOULD WAIT ONE HOUR POST ADMINISTRATION BEFORE CHANGING WOUND VACUUM. PATIENT VERBALIZED UNDERSTANDING AND AGREED TO POC. PROVIDED WARM BLANKETS AND ENSURE SHAKE. PATIENT APPEARS LESS ANXIOUS, SITTING CALMY IN RECLINER READING BOOK. COLLECTED ALL SUPPLIES AND MADE READY FOR DRESSING CHANGE. 2300 DAIRY NUTRITIONIST ASSISTED THIS NURSE, CHANGING NPWT. REMOVED DRAPE WITH ADHESIVE REMOVER AND THEN SOAKED SILVER FOAM WITH STERILE WATER TO LOOSEN ADHERANCE FROM WOUND BED. NOTED WOUND EDEMATOUS AND CLEAN WITH NON-GRANULATING TISSUE PRESENT, PATIENT RATED PAIN 8/10 ON PAIN SCALE WITH FINAL REMOVAL OF FOAM FROM WOUND BASE. NOTED 1 PIECE OF SILVER FOAM, 1 PIECE OF CONTACT LAYER, 1 PIECE OF WHITE FOAM. THESE ITEMS APPEARED TO BE PACKED TIGHTLY INTO WOUND BED, AND MAY HAVE ADVERSLY AFFECTED/ STALLED WOUND HEALING. PATIENT STATED " I HAVE HAD TO CHANE THE DRAINAGE CONTAINER TWICE MUCH LATELY" NO ODOR PRESENT IN WOUND BED, SEROSANGUINOUS DRAINAGE PRESENT. CLEANSED WOUND BED WITH WOUND CLEANSER. PICTURES AND MEASUREMENTS COLLECTED AND IN CHART, L 5.5CM X W3CM X D3CM, THERE WAS ALSO A 0.5CM TUNNEL AT 1'0CLOCK. PACKED TUNNELD WITH ADAPTIC CONTACT LAYER AND ONE SMALL PIECE OF BLACK FOAM, THEN 1 PIECE OF BLACK FOAM TO FILL REST OF WOUND BASE. AND THEN BRIGED VACUUM TO MID ABDOMEN TO PROVIDE MORE SPACE TO WORK WITH COLOSTOMY CARE. TOTAL OF 3 PIECES OF BLACK FOAM, AND 1 PIECE OF ADAPTIC USED DURING DRESSING CHANGE. PROVIDED PATIENT FREQUENT BREAKS WHEN NEEDED, OFFERED BREATHING TECHNIQUES AND REASSURED PATIENT. CALL TO DR. SORTO TO REQUEST MEDICATION FOR BREAKTHRU PAIN, THIS DRESSING CHANGE BEING MORE PAINFUL SECONDARY TO THE EDEMATOUS OF THE TISSUES IN THE WOUND BASE. DR. SORTO PROVIDED ORDER FOR 5MG OXYCODONE, ADMINISTERED TO PATIENT WHO WAS WILL TO TRY. EDGES OF WOUND WERE DRAPED, AND DRAPE WAS PLACED ON SKIN WHERE THE BRIDGE FOR THE BLACK FOAM WAS RESTED. THEN WAITED 45 MINUTES FOR PO PAIN MEDICATION TO START WORKING BEFORE HOOKING PATIENT TO WOUND VAC AND CREATING SUCTION. TURNED ON, PATIENT ABLE TO TOLERATE PROCESS OKAY. WOUND VAC AT 120 MMHG CONTINIOUSLY, APPEARS TO HAVE GOOD SEAL. PATIENT THEN PROVIDED WARM BLANKETS, CALL LIGHT WITHIN REACH. WOUND PICTURES THEN DISCUSSED WITH CHARGE NURSE, AND THIS NURSE VERBALIZED CONCERNS THAT SHOULD BE ADDRESSED WITH PATIENT WOUND CARE.
--- NOTE | 2022-06-10 23:51 | NUR ---
DR SORTO UPDATED ON pt's FRUSTRATION ON WOUND VAC AND THAT pt REPORTING INCREASED PAIN W/ CHANGING OF WOUND VAC AND REQUESTING SOMETHING FOR BREAKTHROUGH PAIN, TELEPHONE ORDER READ BACK FOR 5MG PO OXYCODONE ONE TIME DOSE FOR NOW.
--- NOTE | 2022-06-11 02:31 | NUR ---
ROUNDED ON pt TO REASSESS PAIN, pt REPORTS PAIN IS STILL THERE BUT IS TOLERABLE AT THIS TIME. FRESH WATER AND WARM BLANKET PROVIDED. pt APPRECIATES CARE AND ROUNDING, NO ADDITIONAL NEEDS. CALL LIGHT IN REACH. WILL CONTINUE TO MONITOR.
--- NOTE | 2022-06-11 05:30 | NUR ---
IN TO GET VS, URINALS EMPTIED, NO FURTHER NEEDS AT THIS TIME
--- NOTE | 2022-06-11 07:20 | NUR ---
RECIEVED SHIFT REPORT. PT LAYING IN BED. DENIES FURTHER NEEDS. CALL LIGHT WITHIN REACH.
--- NOTE | 2022-06-11 07:51 | NUR ---
pt am care done. pt up in chair. call light within reach no further tasks at this time
--- NOTE | 2022-06-11 09:12 | NUR ---
PT SITTING IN RECLINER EATIN BREAKFAST. DENIES NEEDS AT THIS TIME. CALL LIGHT IN REACH.
--- NOTE | 2022-06-11 09:30 | NUR ---
Discussed in [address] Jin. Pt is ready for dc return to [facility]. Updated Ranjit have not given auth to the SNF and are requesting a PT/OT eval prior to giving auth. Dr. Jin will order. Austen PAYNE, will call and speak with Ranjit.
--- NOTE | 2022-06-11 10:10 | NUR ---
PT C/O 01/30 PAIN AFTER WALKIN TRIPP [facility]YS[facility] THERAPY IN [facility]. GIVEN PRN OXYCODONE, SEE EMAR. DENIES FURTHER NEEDS AT THIS TIME. CALL LIGHT IN REACH.
--- NOTE | 2022-06-11 11:00 | NUR ---
Notified by Austen she spoke with Susan at [facility] and they are awaiting the PT/OT eval.
--- NOTE | 2022-06-11 11:01 | NUR ---
ENTERED ROOM TO MEASURE I&O AND OBTAIN VITAL SIGNS. PATIENT PROVIDED EDUCATION REGARDING EMPTYING COLOSTOMY BAG. PROVIDED A HOT PACK AND WARM BLANKET. PATIENT SITTING UP WITH CALL LIGHT SPEAKING WITH DR. SORTO AT TIME OF EXIT.
--- NOTE | 2022-06-11 11:06 | NUR ---
PT IN RECLINER. PURULENT DRAINAGED NOTED AROUND G-TUBE DRAIN. MD NOTIFIED. CLENASED WITH WOUND CLEANSER AND PLACED A NON-WOVEN DRAIN SPONGE DRESSING.
--- NOTE | 2022-06-11 12:18 | NUR ---
Received Pt/OT evals. Attempted to call [facility] and Susan is gone for the day. My call was forwarded to SHAR Peñaloza. He is also out of the office. I called JEFFERSON at [facility] and asked if he has a fax number to send the evals. He states he doesn't and if I send them to him, he will keep calling and fax when he is able to reach [facility].
--- NOTE | 2022-06-11 13:23 | NUR ---
PT SITTING UP IN RECLINER, FINISHED LUNCH. DENIES NEEDS AT THIS TIME. CALL LIGHT IN REACH. STUDENT NURSE IN ROOM.
--- NOTE | 2022-06-11 13:40 | NUR ---
NOtified by JEFFERSON at [facility] they have received auth from [facility] for Pt to return today. Texted Dr. Jin.
[2022-06-11] MEDS ORDERED: FERROUS SULFAT325 M2 PO (13:48)
[2022-06-11] MEDS ORDERED: ELIQUIS5 MG PO (13:49)
[2022-06-11] MEDS ORDERED: OXYCODON-ACETA1 EAC2 PO (13:50)
--- NOTE | 2022-06-11 13:51 | NUR ---
PATIENT STATES HIS APPETITE HAS IMPROVED WHILE HERE. HE SAID THE MEALS HE HAS BEEN GETTING HAVE BEEN "VERY GOOD." WE ARE ACCOMODATING HIS VEGETARIAN, GLUTEN-FREE PREFERENCES AND ALMOND MILK AT BREAKFAST. HE STATES HE IS TRYING TO CONSUME LESS POTASSIUM TO PROTECT HIS KIDNEYS SO HE HAS BEEN DRINKING ENSURE CLEAR INSTEAD OF ENSURE HIGH PROTEIN. HE IS AWARE THAT ENSURE CLEAR DOES NOT HAVE MUCH PROTEIN BUT HE IS EATING PROTEIN FOODS AT HIS MEALS. 60 GM CONS CARB DIET IN PLACE. NO FURTHER NUTRITION INTERVENTION NEEDED AT THIS TIME. WILL CONTINUE TO MONITOR.
--- NOTE | 2022-06-11 14:14 | NUR ---
Received orders from Dr. Jin for SNF. FAxed orders, RX, [place], EMAR,PT/OT eval, and DC summary.
--- NOTE | 2022-06-11 14:40 | NUR ---
PT IS IN RECLINER. CALL LIGHT WITHIN REACH.
--- NOTE | 2022-06-11 14:41 | NUR ---
ENTERED ROOM TO OBTAIN A SOCIAL HISTORY FROM PATIENT. MEASURED I & O. ASSISTED PATIENT EMPTY OSTOMY BAG. PROVIDED A WARM BLANKET AND HOT PACK FOR PATIENT. RESTING COMFORTABLY IN CHAIR, CALL LIGHT WITHIN REACH.
--- NOTE | 2022-06-11 14:45 | NUR ---
In and spoke with Wilfrid. Updated auth received from insurance to return to [facility]. We have scheduled [facility] van for transport at 4 pm today. Pt denies further needs.
--- NOTE | 2022-06-11 15:07 | NUR ---
ROUNDED ON PT TO ASSESS WOUND VAC PER PT REQUEST. PICTURES ALSO ASSESSED WITH MURPHY MYLES. WOUND BASE BEEFY RED IN COLOR AND APPEARS TO BE HEALING APPROPRIATLY. PT'S QUESTIONS AND CONCERNS ADRESSED. CALL LIGHT IN REACH.
--- NOTE | 2022-06-11 15:37 | NUR ---
CALLED [facility] TO GIVE REPORT ON DISCHARGING PT. SPOKE WITH CHARISSE. ALL QUESTIONS ANSWERED.
== END 2022-06-11 16:00 | DRG 683 ==
LOC: ED 15:06 → CCU 19:22 → MS 06-09 14:21
PROVIDERS: ADMIT Internal Medicine; ATTEND Internal Medicine
DX: N17.9 Acute kidney failure, unspecified (principal); E87.1 Hypo-osmolality and hyponatremia; E87.20 Acidosis, unspecified; I82.412 Acute embolism and thrombosis of left femoral vein; Z20.822 Contact with and (suspected) exposure to COVID-19; E87.5 Hyperkalemia; E11.22 Type 2 diabetes mellitus with diabetic chronic kidney disease; I12.9 Hypertensive chronic kidney disease with stage 1 through stage 4 chronic kidney disease, or unspecified chronic kidney disease; N18.32 Chronic kidney disease, stage 3b; J45.909 Unspecified asthma, uncomplicated; G80.9 Cerebral palsy, unspecified; E78.5 Hyperlipidemia, unspecified; E79.0 Hyperuricemia without signs of inflammatory arthritis and tophaceous disease; E83.52 Hypercalcemia; D72.829 Elevated white blood cell count, unspecified; D63.1 Anemia in chronic kidney disease; Z93.2 Ileostomy status; Z79.899 Other long term (current) drug therapy; Z79.01 Long term (current) use of anticoagulants; Z88.8 Allergy status to other drugs, medicaments and biological substances; Z88.1 Allergy status to other antibiotic agents; Z91.040 Latex allergy status
CPT/HCPCS: 36415; 74176; 80048; 80053; 81001; 82570; 83036; 83690; 84300; 84550; 85025; 87088; 93306; 97162; 97165; A9270; C9803; J1170; J2405; J2550; J7030; J7070; Q0138; U0003

== ENCOUNTER 2022-07-10 14:44 | Inpatient (IN) | payer OTHER ==
[~2022-07-10] VITALS: Ht 172.7 cm; Wt 69.3 kg
--- NOTE | ~2022-07-10 | DS ---
[facility] [address], [place] [address] Draft ADMISSION DATE: 07/10/2022 DISCHARGE DATE: 07/15/2022 REASON FOR ADMISSION: This 66-year-old white man has a complex past medical history, which can be seen in the admission history and physical note. He was admitted at this time for subcutaneous fluid collection in the area of the right lower quadrant, where previous intraabdominal drain had been unintentionally explanted. PERTINENT PHYSICAL EXAMINATION: GENERAL: Showed an alert and oriented white man, who looks to be in no sign of distress or systemic toxicity. VITAL SIGNS: Temperature is 98.1, pulse 84, blood pressure 108/71, and O2 saturation 100% on room air. ABDOMEN: Obese, but scaphoid, nondistended. Midline incision was reasonably soft without tenderness. G-tube emanates from the upper aspect on the left. There is no sign of cellulitic change there. The right lower abdomen where previous drain site does show fullness in the subcutaneous space and mild cellulitic changes, but not markedly tender. There is edema as well. EXTREMITIES: Show no clubbing, cyanosis, or edema. IMAGING DATA: A CT scan was performed, which had shown fluid collections and interpretation by radiologists (without benefit of knowing his history of resolving intraabdominal fluid collections) describing numerous "fistulous tracts." Additionally, noted was his admission of June 08 through June 11, managed by Dr. Jin related to metabolic acidosis and hyperkalemia and leukocytosis and left lower extremity deep venous thrombosis, which was treated with Eliquis. HOSPITAL COURSE: CT scan was reviewed thoroughly. Previous drains that had been in the abdomen draining a purulent-appearing material, but without signs of systemic toxicity. Had been decreasing in size over time. Unintentional loss of his right-sided abdominal drain had caused a cellulitic change and concern is maintained for this as a source of his discomfort and problem. A plan for local wound exploration and possible laparoscopic evaluation was outlined; however, given his Eliquis for anticoagulation, it was important that the anticoagulant effect of the Eliquis would be allowed to toney. He was given Lovenox at therapeutic doses as Eliquis was withheld. On July 13, 2022, he underwent exploration of the right lower quadrant drain site, which showed a mucopurulent scar like cavity. Placement of a drain through the trach was undertaken. PATIENT NAME: DAVID POTTS DISCHARGE SUMMARY DATE OF : 57 REPORT #: [id number] PHYSICIAN: MICHAEL PRO MD PCP: Tristan Carrera DO REPORT IS CONFIDENTIAL AND NOT TO BE RELEASED WITHOUT AUTHORIZATION [facility] [address], [place] [address] Draft Additionally, he underwent laparoscopy with entry point in the apex of the midline incision. This showed multiple web-like intraabdominal adhesions, no sign of purulence, certainly no purulent fluid collections. Two additional drains were placed in the abdominal cavity area likely to gather purulent material if in fact it was egressing. Complication of placement of Sellers catheter at outside of the operation required cystoscopy identifying a prostatic urethral junction injury, for which wire guided the Sellers catheter placement into the bladder was undertaken anticipating otherwise conservative management. A STAT Gram stain obtained at operation showed gram-positive cocci in the drain site area. He was maintained with ceftazidime and vancomycin antibiotic and transitioned ultimately to doxycycline and Augmentin. The drains that have been placed showed only serosanguineous drainage. No sign of purulent drainage. He had prompt resumption of his ileostomy output. It is anticipated that the Sellers catheter remain in place for 10 days, and subsequently be removed. It is noted that the patient had difficulty in placement of a Sellers catheter on a previous hospitalization requiring a coude catheter and this may have been a manifestation of that injury in some respects and therefore a generous amount of time to allow for healing of the urethral tear is well appropriate. Ultimately, urologic evaluation formally may be required. He will be discharged home with a Sellers catheter in place. He will have a conventional Sellers catheter bag as well as a leg bag as needed. The drains remain in place, though none of them appeared to be draining purulent material at the time of discharge. The ileostomy is healthy and functioning well. He will call on Wednesday (today is Wednesday) to set up an appointment for 10 days following operation. Whether or not additional imaging studies will be undertaken remains to be determined. I have given the patient my cell phone number should he have problems in the next few days during the holiday. DISCHARGE MEDICATIONS: 1. Augmentin 500/125 one p.o. t.i.d. with meals, #30. 2. Doxycycline 100 mg p.o. b.i.d., #20. 3. Percocet 7.5/325 one to two p.o. q.4 hours as needed for severe pain, #10. 4. Plain Tylenol 1000 mg p.o. q.6 hours as needed for pain, #60, no refill. 5. Famotidine 20 mg p.o. b.i.d., #60, refill 3. 6. He will continue his usual medication of allopurinol 150 mg p.o. daily. 7. Azelastine 0.05% eyedrops one drop for the eye b.i.d. for allergic conjunctivitis. 8. Fluticasone spray, two sprays daily for nasal congestion. PATIENT NAME: DAVID POTTS DISCHARGE SUMMARY DATE OF : 57 REPORT #: [id number] PHYSICIAN: MICHAEL PRO MD PCP: Tristan Carrera DO REPORT IS CONFIDENTIAL AND NOT TO BE RELEASED WITHOUT AUTHORIZATION [facility] [address], [place] [address] Draft 9. Simvastatin 20 mg p.o. daily for hypercholesterolemia. 10. Melatonin 6 mg p.o. at bedtime for insomnia. 11. Ozempic/semaglutide subcutaneously weekly. 12. Multivitamin one tablet p.o. daily. 13. Eliquis 5 mg p.o. b.i.d. He will discontinue his pantoprazole and ferrous sulfate. DISCHARGE DIAGNOSES: 1. Right lower abdominal drain site subcutaneous edema, inflammation and fluid collection with gram-positive cocci. 2. Status post incision, drainage and poor dissection and replacement of drain through right lower quadrant incision site. 3. Laparoscopic evaluation with lysis of adhesions and placement of drains x2. 4. 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 5. Postoperative segmental small bowel infarction requiring segmental resection and re-formation of ileostomy and placement of drains. 6. Persistent fluid collections with purulent drainage and progressive resolution on surveillance. 7. Wound infection, inferior midline incision requiring drainage, debridement, and application of wound VAC (resolved). 8. History of left lower extremity deep venous thrombosis in May 2022, definitive treatment Eliquis. 9. History of gout. 10. Insomnia. 11. Gastroesophageal reflux. MD ARIA Mane/BRIAN /[id number] cc: DO Kishor Giraldo MD PATIENT NAME: DAVID POTTS DISCHARGE SUMMARY DATE OF : 57 REPORT #: [id number] PHYSICIAN: MICHAEL PRO MD PCP: Tristan Carrera DO REPORT IS CONFIDENTIAL AND NOT TO BE RELEASED WITHOUT AUTHORIZATION [facility] [address], [place] [address] Draft Copies: Tristan Carrera LOHITH MD ~ PATIENT NAME: DAVID POTTS DISCHARGE SUMMARY DATE OF : 57 REPORT #: [id number] PHYSICIAN: MICHAEL PRO MD PCP: Tristan Carrera DO REPORT IS CONFIDENTIAL AND NOT TO BE RELEASED WITHOUT AUTHORIZATION
[~2022-07-10 14:44] MED LIST changes: +GAS RELIEF80 MG PO
--- OUTSIDE RECORDS SUMMARY | 2022-07-10 14:48 | XMS ---
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 Physician Conductor [employer] Current PHONE: Unknown EULA HURTADO Nurse Practitioner Current PHONE: Unknown DIANA NEWSOME Nurse Practitioner Rachel CHURCHGH PHONE: [phone] [facility] Current PHONE: Unknown [facility] PHONE: [phone] JACKSON GREENE Physician Conductor [employer] Current PHONE: Unknown Max has no Care Guidelines for this patient. ESilvia VISIT COUNT (12 MO.) 6 PEGGY Andersen TOTAL 6 NOTE: Visits indicate total known visits. ED/UCC VISIT TRACKING (12 MO.) 07/10/2022 14:45 [facility] [place] TYPE: Emergency COMPLAINT: - WOUND CHECK 06/08/2022 15:07 [facility] [place] TYPE: Emergency COMPLAINT: - ABDOMINAL PAIN 06/05/2022 14:08 [facility] [place] TYPE: Emergency COMPLAINT: - POSS BLOOTCLOT DIAGNOSES: - Type 2 diabetes mellitus with diabetic chronic kidney disease - Chronic kidney disease, stage 3 unspecified - Acute embolism and thrombosis of unspecified deep veins of left distal lower extremity - Acute embolism and thrombosis of left femoral vein - Hypertensive chronic kidney disease with stage 1 through stage 4 chronic kidney disease, or unspecified chronic kidney disease - Unspecified asthma, uncomplicated - Localized edema - Latex allergy status - Other retirement (current) drug therapy - Allergy status to other drugs, medicaments and biological substances 05/28/2022 18:26 [facility] [place] TYPE: Emergency COMPLAINT: - BLOOD PRESSURE PROBLEM DIAGNOSES: - Other retirement (current) drug therapy - Type 2 diabetes mellitus without complications - Unspecified abdominal pain - Essential (primary) hypertension - Allergy status to other drugs, medicaments and biological substances - Latex allergy status - Unspecified asthma, uncomplicated 05/11/2022 09:27 [facility] [place] TYPE: Emergency COMPLAINT: - SHOB 03/30/2022 07:20 [facility] TYPE: Emergency COMPLAINT: - LOWER ABD PAIN, N/V, HIGH B/SUGAR, SOB INPATIENT VISIT TRACKING (12 MO.) 06/08/2022 19:22 [facility] [place] TYPE: Medical Surgical COMPLAINT: - ACUTE RENAL FAILURE DIAGNOSES: - Hypercalcemia - Elevated white blood cell count, unspecified - Hyperlipidemia, unspecified - Hyperuricemia without signs of inflammatory arthritis and tophaceous disease - Allergy status to other drugs, medicaments and biological substances - Anemia in chronic kidney disease - 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 - Latex allergy status - Ileostomy status - Type 2 diabetes mellitus with diabetic chronic kidney disease - Contact with and (suspected) exposure to COVID-19 - Cerebral palsy, unspecified - Acute kidney failure, unspecified - Allergy status to other antibiotic agents - Unspecified asthma, uncomplicated - Acute embolism and thrombosis of left femoral vein - Hypo-osmolality and hyponatremia - Other retirement (current) drug therapy - Hypertensive chronic kidney disease with stage 1 through stage 4 chronic kidney disease, or unspecified chronic kidney disease - Chronic kidney disease, stage 3b - ACIDOSIS, UNSPECIFIED - Hyperkalemia - Acidosis, unspecified 05/11/2022 15:56 [facility] [place] TYPE: Medical Surgical COMPLAINT: - INTRA ABD ABSCESSES,SUBCUTANEOUS WOUND ABSCESS DIAGNOSES: - Contact with and (suspected) exposure to COVID-19 - Unspecified asthma, uncomplicated - Hypotension, unspecified - Acquired absence of other specified parts of digestive tract - Chronic kidney disease, stage 3 unspecified - Hypertensive chronic kidney disease with stage 1 through stage 4 chronic kidney disease, or unspecified chronic kidney disease - Presence of left artificial knee joint - Insomnia, unspecified - Gout, unspecified - Peritoneal abscess - Gout, unspecified - Other medical terminologist (current) drug therapy - Type 2 diabetes mellitus without complications - Other specified postprocedural states - Other retirement (current) drug therapy - Cutaneous abscess of abdominal wall - Removal of other organ (partial) (total) as the cause of abnormal reaction of the patient, or of later complication, without mention of misadventure at the time of the procedure - Infection following a procedure, organ and space surgical site, initial encounter - Presence of left artificial shoulder joint - Hypotension, unspecified - Cutaneous abscess of abdominal wall - Cerebral palsy, unspecified - Contact with and (suspected) exposure to COVID-19 - Allergy status to other drugs, medicaments and biological substances - Anemia, unspecified - Latex allergy status - Allergy status to other drugs, medicaments and biological substances - Cerebral palsy, unspecified - Chronic kidney disease, stage 3 unspecified - Type 2 diabetes mellitus with diabetic chronic kidney disease - Presence of left artificial shoulder joint - Peritoneal abscess - Insomnia, unspecified - Type 2 diabetes mellitus with diabetic chronic kidney disease - Removal of other organ (partial) (total) as the cause of abnormal reaction of the patient, or of later complication, without mention of misadventure at the time of the procedure - Other specified postprocedural states - Type 2 diabetes mellitus without complications - Anemia, unspecified - Acquired absence of other specified parts of digestive tract - Latex allergy status - Unspecified asthma, uncomplicated - Infection following a procedure, other surgical site, initial encounter - Hypertensive chronic kidney disease with stage 1 through stage 4 chronic kidney disease, or unspecified chronic kidney disease - Infection following a procedure, organ and space surgical site, initial encounter - Presence of left artificial knee joint 03/30/2022 13:[address] 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
[2022-07-10] MEDS ORDERED: CLINDAMYCIN HC300 MG PO (15:37)
[2022-07-10] MEDS ORDERED: PEPCID20 MG PO (15:38)
[2022-07-10] MEDS ORDERED: PROMETHAZINE HC25 M1 PO (15:39)
[2022-07-10] MEDS ORDERED: ONE DAILY WITH1 EACH PO (15:39)
[2022-07-10] MEDS ORDERED: PERCOCET 7.5-31 EACH PO (17:53)
--- NOTE | 2022-07-11 12:36 | HP ---
[facility] [address], [place] [address] Signed ADMISSION DATE: 07/10/2022 REASON FOR ADMISSION: Subcutaneous fluid collection, probable drainage of osjnjki-er-[id number]. HISTORY OF PRESENT ILLNESS: This 66-year-old white man has a very complex past medical history. 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 Drains were placed as well. A prolonged and difficult recovery was noted, but he did generally recover well. He did develop drainage from 3 separate drains that were placed within the abdominal cavity. 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 Drains were left in place and there has been diminishment of their output. They have still showed purulent drainage over time. He was in [facility] for prolonged amount of time with dislodgement of 2 of the drains and subsequently recent dislodgement of another. Last week I saw him in the office after unintentional withdrawal of the last remaining drain, which was in the right lower abdomen. There was some tenseness in the region of the incision. He underwent incision and drainage in the office setting. A CT scan was planned to be undertaken quite promptly to assess for fluid collection. It was not able to be performed until July 08. 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 A fistulous tract was considered to course anteriorly and superiorly and passed through the abdominal wall along the prior drain tract to the skin. Tract has a blind ending along the inferior aspect of the liver. It is recalled that his right-sided drain was over the dome of the liver, the left side along the left pericolic gutter to the spleen, and a 3rd in the low pelvis. There is considered to be a chain of small abscesses with branching fistulas along the right abdominal wall. There is a rim enhancing 5.6 cm fluid collection with fat stranding as well. Close inspection shows resolution of the large fluid collections that were previously noted. He was seen by visiting health nurse today as he has been discharged from nursing care Electronically Signed By: MICHAEL PRO MD 07/11/22 1236 PATIENT NAME: DAVID POTTS HISTORY AND PHYSICAL DATE OF : 57 REPORT #: [id number] PHYSICIAN: MICHAEL PRO MD PCP: Tristan Carrera DO REPORT IS CONFIDENTIAL AND NOT TO BE RELEASED WITHOUT AUTHORIZATION [address] [address] Signed over a week ago and found to have fullness in the right lower abdominal wall drain tract site. He was evaluated in the emergency room by Dr. Cat and I saw him briefly there as well. Notable were lab studies which were normal including a white count of 9.1 with hematocrit of 30.5, and a platelet count of 239,000. A Chem profile which showed a creatinine of 1.74, which in his case is typical and albumin of 2.9. COVID serology was negative. Given the right-sided abdominal drain site fullness and complex findings of probable intraperitoneal fluid collections, he was admitted for further evaluation and care. REVIEW OF SYSTEMS: He denies any shortness of breath or chest pain. He is really not having a problem with his ileostomy which is functioning well. He does complain of some local pain in the right lateral abdominal wall where previous drain was placed. PHYSICAL EXAMINATION: GENERAL: He looks alert, oriented, and nontoxic. VITAL SIGNS: Temperature is 98.1, pulse is 84, blood pressure 108/71, O2 saturation is 100% on room air. NECK: Trachea is midline. CHEST: Shows normal respiratory excursion. ABDOMEN: Obese, but scaphoid and nondistended. Midline incision is reasonably soft and without tenderness. A G-tube emanates from the upper abdominal area, is somewhat loose. There is no sign of surrounding cellulitic change. The abdomen is soft without focal mass or erythema. In the right lower abdomen, there is a previous drain site which does have fullness in the subcutaneous space and although not markedly tender. Does have edematous change. EXTREMITIES: Show no clubbing, cyanosis, or edema. ASSESSMENT AND PLAN: It has long been known that the patient has a complex fluid collections, which have been resolving over time and likely represented a fistulous opening somewhere within the gastrointestinal tract. Other imaging studies have shown serial and progressive resolution of the fluid collections. The ultimate goal of course is to restore gastrointestinal continuity of the small bowel to the rectum or rectal stump; however, control of abdominal sepsis and so forth has been the intermediary goal. Worried not for dislodgement of the drainage tubes that were in the peritoneal cavity, little would change at this point. He is essentially more than 3 months since his initial operation and we have been waiting for improvement of his intraabdominal inflammatory state to allow for reexploration, evaluation, and definitive management of any fistulous opening Electronically Signed By: MICHAEL PRO MD 07/11/22 1236 PATIENT NAME: DAVID POTTS HISTORY AND PHYSICAL DATE OF : 57 REPORT #: [id number] PHYSICIAN: MICHAEL PRO MD PCP: Tristan Carrera DO REPORT IS CONFIDENTIAL AND NOT TO BE RELEASED WITHOUT AUTHORIZATION [facility] [address], [place] [address] Signed and other indicated procedures. The loss of the drains has forced our hand at this point and at minimum incisional drainage and exploration of the wound tract in the right lower quadrant would be appropriate. Control of the fistulous opening is reasonable, but he may have enough softening and resolution of his intraabdominal bowel loops that reasonable exploration could be undertaken with more definitive management and/or drainage of fistulous openings to be undertaken. I have recommended exam under anesthesia tomorrow with opening of the right lower quadrant drain site that has edema and fluid accumulation, possible laparotomy, and exploration, washout and replacement of drains or if possible definitive resectional or reparative intervention. It is rather unlikely that an ileoproctostomy could be undertaken in this time frame, though it is not certain in either way. At minimum reestablishment of safe fistulous drainage would be appropriate pending a more definitive operation as had been anticipated at the 6-month rather than 3-month esperanza. Certainly, there are risks to operation including, but not limited to bleeding, infection, bowel injury involving the progression or worsening of his situation. Up to this point, he has been completely nontoxic and with drainage of the intraabdominal collections well controlled and not excessive in amount nor causing systemic sepsis. All these factors are well established and although complex are subject to what level of inflammation he currently has within the abdominal cavity. All this was discussed with him and he understands. ADDENDUM: Upon further review of his record it is noted that the patient was admitted on June 08, 2022 through June 11, [address] Jin and others with issues related to metabolic acidosis and hyperkalemia as well as hypercalcemia and leukocytosis as well as left lower extremity deep venous thrombosis. He was hydrated and recovered from this well. It is noted that medicines at discharge included Ozempic for his diabetes, losartan, spironolactone, and amlodipine for his hypertension. Augmentin for presumed abscess as well as continued use of Eliquis for deep venous thrombosis previously noted on the left side. A 6-month course was anticipated. As the patient is in fact on Eliquis, he will not be able to have drainage tomorrow in a reasonable way and other plans will need to be considered as far as operative intervention at least from a timing perspective. On that basis, we will withhold his Eliquis at this time and in fact reinitiate Lovenox; concerns regarding sensitivity to heparin based on thrombocytopenia from his index hospitalization are likely unfounded and unrelated to heparin type products, but rather due to the sepsis he has suffered. We will certainly continue to monitor his platelet count. Electronically Signed By: MICHAEL PRO MD 07/11/22 1236 PATIENT NAME: DAVID POTTS HISTORY AND PHYSICAL DATE OF : 57 REPORT #: [id number] PHYSICIAN: MICHAEL PRO MD PCP: Tristan Carrera DO REPORT IS CONFIDENTIAL AND NOT TO BE RELEASED WITHOUT AUTHORIZATION [facility] [address] [place], [place] [address] Signed MD ARIA Mane/BRIAN /[id number] cc: DO Kishor Giraldo MD Copies: Tristan Carrera LOHITH MD ~ Electronically Signed By: MICHAEL PRO MD 07/11/22 1236 PATIENT NAME: DAVID POTTS HISTORY AND PHYSICAL DATE OF : 57 REPORT #: [id number] PHYSICIAN: MICHAEL PRO MD PCP: Tristan Carrera DO REPORT IS CONFIDENTIAL AND NOT TO BE RELEASED WITHOUT AUTHORIZATION
--- NOTE | 2022-07-11 12:36 | HP ---
[facility] [address], [place] [address] Signed ADMISSION DATE: 07/10/2022 REASON FOR ADMISSION: Subcutaneous fluid collection, probable drainage of intra abdominal fistula. HISTORY OF PRESENT ILLNESS: This 66-year-old white man has a very complex past medical history. 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 Drains were placed as well. A prolonged and difficult recovery was noted, but he did generally recover well. He did develop drainage from 3 separate drains that were placed within the abdominal cavity. The drainage has steadily decreased over time and was not bilious in appearance. He has maintained oral intake and although lost excess weight has been highly functional. 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 Drains were left in place and there has been diminishment of their output. They have still showed purulent drainage over time. The low incisional wound has nearly healed up and the wound vac has been discontinued. He was in [facility] for prolonged amount of time with dislodgement of 2 of the drains and subsequently recent dislodgement of another. Last week I saw him in the office after unintentional withdrawal of the last remaining drain, which was in the right lower abdomen. There was some tenseness in the region of the incision. He underwent incision and drainage in the office setting. A CT scan was planned to be undertaken quite promptly to assess for fluid collection. It was not able to be performed until July 08. 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 A fistulous tract was considered to course anteriorly and superiorly and passed through the abdominal wall along the prior drain tract to the skin. Tract has a blind ending along the inferior aspect of the liver. It is recalled that his right-sided drain was over the dome of the liver, the left side along the left pericolic gutter to the spleen, and a 3rd in the low pelvis. There is considered to be a chain of small abscesses with branching fistulas along the right abdominal wall. There is a rim enhancing 5.6 cm fluid collection with fat stranding as well. Close inspection shows resolution of the large fluid collections Electronically Signed By: MICHAEL PRO MD 07/11/22 1236 PATIENT NAME: DAVID POTTS HISTORY AND PHYSICAL DATE OF : 57 REPORT #: [id number] PHYSICIAN: MICHAEL PRO MD PCP: Tristan Carrera DO REPORT IS CONFIDENTIAL AND NOT TO BE RELEASED WITHOUT AUTHORIZATION [facility] [address] [facility] [place], [place] [address] Signed that were previously noted. He was seen by visiting health nurse today as he has been discharged from nursing care over a week ago and found to have fullness in the right lower abdominal wall drain tract site. He was not systemically toxic. He was directed by the home health nurse to the ER. He was evaluated in the emergency room by Dr. Cat and I saw him briefly there as well. Notable were lab studies which were normal including a white count of 9.1 with hematocrit of 30.5, and a platelet count of 239,000. A Chem profile which showed a creatinine of 1.74, which in his case is typical and albumin of 2.9. COVID serology was negative. Given the right-sided abdominal drain site fullness and complex findings of probable intraperitoneal fluid collections, he was admitted for further evaluation and care. REVIEW OF SYSTEMS: He denies any shortness of breath or chest pain. He is really not having a problem with his ileostomy which is functioning well. He does complain of some local pain in the right lateral abdominal wall where previous drain was placed. PHYSICAL EXAMINATION: GENERAL: He looks alert, oriented, and nontoxic. VITAL SIGNS: Temperature is 98.1, pulse is 84, blood pressure 108/71, O2 saturation is 100% on room air. NECK: Trachea is midline. CHEST: Shows normal respiratory excursion. ABDOMEN: Obese, but scaphoid and nondistended. Midline incision is reasonably soft and without tenderness. A G-tube emanates from the upper abdominal area, is somewhat loose. There is no sign of surrounding cellulitic change. The abdomen is soft without focal mass or erythema. In the right lower abdomen, there is a previous drain site which does have fullness in the subcutaneous space and although not markedly tender, does have edematous change suggestive of fluid collection. EXTREMITIES: Show no clubbing, cyanosis, or edema. ASSESSMENT AND PLAN: It has long been known that the patient has a complex fluid collections, which have been resolving over time and likely represented a fistulous opening somewhere within the gastrointestinal tract. Other imaging studies have shown serial and progressive resolution of the fluid collections. The ultimate goal of course is to restore gastrointestinal continuity of the small bowel to the rectum; however, control of abdominal sepsis and so forth has been the intermediary goal. Were it not for dislodgement of the drainage tubes that were in the peritoneal cavity, little would Electronically Signed By: MICHAEL PRO MD 07/11/22 1236 PATIENT NAME: DAVID POTTS HISTORY AND PHYSICAL DATE OF : 57 REPORT #: [id number] PHYSICIAN: MICHAEL PRO MD PCP: Tristan Carrera DO REPORT IS CONFIDENTIAL AND NOT TO BE RELEASED WITHOUT AUTHORIZATION [facility] [address] [place], [place] [address] Signed change at this point. He is essentially more than 3 months since his initial operation and we have been waiting for improvement of his intraabdominal inflammatory state to allow for reexploration, evaluation, and definitive management of any fistulous opening and other indicated procedures. The loss of the drains has forced our hand at this point and at minimum incisional drainage and exploration of the wound tract in the right lower quadrant would be appropriate. Control of the fistulous opening is reasonable, but he may have enough softening and resolution of his intraabdominal bowel loops that reasonable exploration could be undertaken with more definitive management and/or drainage of fistulous openings to be undertaken. I have recommended exam under anesthesia tomorrow with opening of the right lower quadrant drain site that has edema and fluid accumulation, possible laparotomy, and exploration, washout and replacement of drains or if possible definitive resectional or reparative intervention. It is rather unlikely that an ileoproctostomy could be undertaken in this time frame, though it is not certain either way. At minimum, reestablishment of safe fistulous drainage would be appropriate pending a more definitive operation as had been anticipated at the 6-month rather than 3-month esperanza. Certainly, there are risks to operation including, but not limited to bleeding, infection, bowel injury involving the progression or worsening of his situation. Up to this point, he has been completely nontoxic and with drainage of the intraabdominal collections well controlled and not excessive in amount nor causing systemic sepsis. All these factors are well established and although complex are subject to what level of inflammation he currently has within the abdominal cavity. All this was discussed with him and he understands. MD ARIA Mane/ALEXL /[id number] cc: Dr Debi Sorto MD Electronically Signed By: MICHAEL PRO MD 07/11/22 1236 PATIENT NAME: DAVID POTTS HISTORY AND PHYSICAL DATE OF : 57 REPORT #: [id number] PHYSICIAN: MICHAEL PRO MD PCP: Tristan Carrera DO REPORT IS CONFIDENTIAL AND NOT TO BE RELEASED WITHOUT AUTHORIZATION [address] [address] Signed Copies: MANASA SORTO MD ~ Electronically Signed By: MICHAEL PRO MD 07/11/22 1236 PATIENT NAME: DAVID POTTS TERESO HISTORY AND PHYSICAL DATE OF : 57 REPORT #: [id number] PHYSICIAN: MICHAEL PRO MD PCP: Tristan Carrera DO REPORT IS CONFIDENTIAL AND NOT TO BE RELEASED WITHOUT AUTHORIZATION
--- NOTE | 2022-07-11 12:36 | HP ---
[facility] [address] [place], [place] [address] Signed ADMISSION DATE: 07/10/2022 ADDED TO JOB [id number] - SMB: ADDENDUM: Upon further review of his record it is noted that the patient was admitted on June 08, 2022 through June 11, [address] Sorto and others with issues related to metabolic acidosis and hyperkalemia as well as hypercalcemia and leukocytosis as well as left lower extremity deep venous thrombosis. He was hydrated and recovered from this well. It is noted that medicines at discharge included Ozempic for his diabetes, losartan, spironolactone, and amlodipine for his hypertension. Augmentin for presumed abscess as well as continued use of Eliquis for deep venous thrombosis previously noted on the left side. A 6-month course was anticipated. As the patient is in fact on Eliquis, he will not be able to have drainage tomorrow in a reasonable way and other plans will need to be considered as far as operative intervention at least from a timing perspective. On that basis, we will withhold his Eliquis at this time and in fact reinitiate Lovenox; concerns regarding sensitivity to heparin based on thrombocytopenia from his index hospitalization are likely unfounded and unrelated to heparin type products, but rather due to the sepsis he has suffered. We will certainly continue to monitor his platelet count. MD ARIA Mane/BRIAN /[id number] cc: Dr Debi Sorto MD Electronically Signed By: MICHAEL PRO MD 07/11/22 1236 PATIENT NAME: DAVID POTTS HISTORY AND PHYSICAL DATE OF : 57 REPORT #: [id number] PHYSICIAN: MICHAEL PRO MD PCP: Tristan Carrera DO REPORT IS CONFIDENTIAL AND NOT TO BE RELEASED WITHOUT AUTHORIZATION [address] [place], [place] [address] Signed Copies: MANASA SORTO MD ~ Electronically Signed By: MICHAEL PRO MD 07/11/22 1236 PATIENT NAME: DAVID POTTS HISTORY AND PHYSICAL DATE OF : 57 REPORT #: [id number] PHYSICIAN: MICHAEL PRO MD PCP: Tristan Carrera DO REPORT IS CONFIDENTIAL AND NOT TO BE RELEASED WITHOUT AUTHORIZATION
[2022-07-12] MEDS ORDERED: LOSARTAN POTAS100 MG PO (16:03)
[2022-07-12] MEDS ORDERED: OZEMPIC0.25 MG/0. SUB-Q ×2 (16:05→16:46)
[2022-07-12] MEDS ORDERED: THERA-M TABLET1 EACH PO (16:48)
[2022-07-12] MEDS ORDERED: ELIQUIS5 MG PO (16:49)
[2022-07-15] MEDS ORDERED: OXYCODON-ACETA1 EAC2 PO (10:46)
[2022-07-15] MEDS ORDERED: ACETAMINOPHEN500 MG PO (10:47)
[2022-07-15] MEDS ORDERED: FAMOTIDINE20 MG PO (10:47)
[2022-07-15] MEDS ORDERED: DOXYCYCLINE HY100 MG PO (10:48)
[2022-07-15] MEDS ORDERED: AMOX TR-K CLV1 EACH PO (10:48)
--- NOTE | 2022-07-15 11:42 | OR ---
[facility] [address], [place] [address] Signed DATE OF OPERATION: 07/13/2022 SURGEON: Michael Pro MD PREOPERATIVE DIAGNOSES: 1. Intraabdominal fluid collections with progressive resolution; recent dislodgement of right lower abdominal wall drain. 2. Right abdominal wall cellulitic changes and probable abscess. 3. Left deep venous thrombosis with chronic anticoagulation (Eliquis). 4. 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 5. 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 Intraabdominal fluid collections with progressive resolution; recent dislodgement of right lower abdominal wall drain. 2. Right abdominal wall cellulitic changes and probable abscess. 3. Left deep venous thrombosis with chronic anticoagulation (Eliquis). 4. 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 5. 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 6. Laparoscopic evaluation showing no signs of fistula or distinct fluid collections. 7. Extensive intraabdominal adhesions--improved 8. Unintended urethral injury at time of dunn catheter placement ( junction of urethra at the prostatic junction.) PROCEDURE: 1. Incision and drainage and debridement of right lower abdominal wall drain site with Gram stain and cultures (gram-positive cocci on Gram stain) and replacement of 7 mm flat Raúl drain. 2. Laparoscopy with laparoscopic adhesiolysis, irrigation and placement of 7 mm Raúl drains x 2. 3. Cystoscopy with over the wire placement of a 16-Estonian latex Dunn catheter. ANESTHESIA: General endotracheal. Иван Borges, DRYING SUPERVISOR and local 10 mL of 0.25% Marcaine with epinephrine. Electronically Signed By: MICHAEL PRO MD 07/15/22 1142 PATIENT NAME: DAVID POTTS OPERATIVE REPORT DATE OF : 57 REPORT #: [id number] PHYSICIAN: MICHAEL PRO MD PCP: Tristan Carrera DO REPORT IS CONFIDENTIAL AND NOT TO BE RELEASED WITHOUT AUTHORIZATION [facility] [address], [place] [address] Signed INDICATIONS: This 66-year-old white man has a complex past medical history including emergency subtotal colectomy with end ileostomy for severe sepsis and renal failure related to acute toxic megacolon. Subsequent segmental small bowel infarction x2 required additional small bowel resection with anastomosis and reformation of end ileostomy and placement of 3 raúl drains. He survived his initial severe and advanced sepsis and renal failure and has recovered from this, but did develop mucopurulent non bilious drainage through the abdominal drains. He has been managed conservatively with decreasing amounts of drainage. He has never had eileen fistulization (bile or enteric contents) and his ileostomy has been working well. He was in a halfway ([facility]) where dislodgement of 2 of the drains ultimately occured. He has since been at home. Although the drainage had decreased in considerable amounts it had been intended that the last drain remain in place until completely clear. Serial ct scans have shown progressive decrease in the fluid collections and progressive improvement of his situation has been noted. A plan for laparotomy and a buddhist of gastrointestinal continuity (ileoproctostomy) has been intended once the intraabdominal inflammation and acute edema has resolved fully so as to avoid unintended bowel injury in operating too early. In May he developed a left deep venous thrombosis ( a few weeks ago) for which he is treated with Eliquis. He was seen by home health nurse recently who found him to have have fullness in the area of the right lower quadrant drain site recently dislodg with cellulitic changes and mild tenderness. He had no white count elevation or signs of systemic toxicity. He was admitted by me to the hospital on July 10, 2022, and begun on antibiotics. Given his Eliquis, he was withdrawn from that anticoagulant with transition to bridge therapy of Lovenox 40 mg subcutaneously b.i.d. He is now ready unable to undergo surgical intervention, which might include opening of the right lower quadrant drain site infectious site with replacement of drain and possible laparoscopy and/or laparotomy as appropriate. The risks of bleeding, infection, failure to cure the problem, and other unforeseen complications was reviewed in detail. He understands and wished to proceed. FINDINGS: The drain site, which had largely sealed over, but had cellulitic changes was explored and although there was some inflammatory and mucopurulent discharge, there was not a considerable amount of fluid collection. The site was cored at out down to the external fascial layer and probed with a tonsil clamp and ultimately a 7 mm flat Raúl drain placed. It was secured. As it is improbable that the drain would go to exactly the Electronically Signed By: MICHAEL PRO MD 07/15/22 1142 PATIENT NAME: DAVID POTTS OPERATIVE REPORT DATE OF : 57 REPORT #: [id number] PHYSICIAN: MICHAEL PRO MD PCP: Tristan Carrera DO REPORT IS CONFIDENTIAL AND NOT TO BE RELEASED WITHOUT AUTHORIZATION [facility] [address], [place] [address] Signed fistula site, laparoscopy was performed. This was performed through an upper most midline incision with a Parth cannula technique and intraabdominal inspection showed multiple cobwebs type adhesions to the underlying abdominal viscera. This was far improved compared to his last recent evaluation over a month ago. The ileostomy appeared healthy. I saw no evidence of fluid collections despite admission CT scan describing several small fluid collections and "fistulas." Drains were placed in the upper abdomen, the pelvis, and of course the drain site where the drain tract had been. Notably, the drain tract had been cored out and drain replaced was not visualized and may well reside in the properitoneal space or fascial space and not intraabdominal. A Dunn catheter that was placed by the circulating nurse was placed without resistence, but it was noted to have no urine output and on that basis, a urethral injury was considered likely. There was some blood at the urethral meatus. On that basis, cystoscopy was complete, performed at the conclusion of the operation, finding a urethral injury at the junction of the prostatic urethra. With an " over the wire technique", a catheter was placed and successful decompression of bladder is noted. DESCRIPTION OF PROCEDURE: The patient was brought to the operating room, given a general endotracheal anesthetic. He had been on antibiotic already and was given Lovenox 40 mg subcutaneously in the morning. After satisfactory general endotracheal anesthesia, the ostomy appliance was removed showing a healthy right lower quadrant ileostomy site, a midline incision, which was intact and drain sites on the left that were largely sealed over and one on the right, associated with mild inflammatory change of the abdominal wall and fullness showing no egress of purulent material. The abdomen was clipped and prepared with a a Betadine based solution. The inferior aspect of the incision, which had a wound VAC applied for wound infection previously was granulating, but not fully epithelialized. After sterile draping, an Ioban was applied so as to control ileostomy output during course of operation. The operation started at the right lower quadrant drain site. The area was cored out with a 15 blade and electrocautery following the granulomatous drain tract down to the abdominal fascia. There was some purulent material and this was Gram stained and cultured. Further coring down to the abdominal wall fascia was undertaken. The specimen passed for pathology. Using a tonsil clamp, the tract was probed and appeared to penetrate through the abdominal wall, possibly into the abdominal cavity, but perhaps only in the properitoneal space. A 7 mm flat Raúl drain was placed down the tract and secured the skin with nylon suture. Mindful that the actual course of the drain would unlikely be to the entire length of its previous position. Laparoscopy was deemed appropriate. Notably, the midline incision still had a firm ridge, but the abdominal wall was pliable Electronically Signed By: MICHAEL PRO MD 07/15/22 1142 PATIENT NAME: DAVID POTTS OPERATIVE REPORT DATE OF : 57 REPORT #: [id number] PHYSICIAN: MICHAEL PRO MD PCP: Tristan Carrera DO REPORT IS CONFIDENTIAL AND NOT TO BE RELEASED WITHOUT AUTHORIZATION [address] [address] Signed and the probability of successful laparoscopy was considered high. An incision was made in the apex of the midline incision and using an open Parth cannula technique, the peritoneal cavity entered. There were multiple adhesions, but they were reasonably filmy and Cobweb-like. A Menchaca type cannula was placed and pneumoperitoneum achieved to a level of 14 mmHg of carbon dioxide gas. Passage of the 30 degree angled laparoscoped into the peritoneal cavity showed multiple cobwebs like adhesions. These were gently brought down with blunt dissection largely. The examination of the terminal ileum and its pass to the abdominal wall through the ileostomy appeared to be viable. There was no sign of fluid collection in that area. Thre were areas of drain tract inflammatory scarring, but no purulent collections. A 5 mm right upper quadrant trocar site incision was made and trocar placed allowing for placement of a 7 mm flat Raúl drain in the superior right abdomen, which had been the last position of functional drainage. Liver parenchyma itself was not identified, but the adhesions, which were broken down did provide a good space for examination. Similarly, a drain was placed in the midline after blunt dissection of the adhesions to the midline and on the left side. Examination the low pelvis showed no evidence of fluid collection, purulence, or actual fistula in any way. A drain was placed into the low pelvis with the same technique. In total, three such drains were placed. Irrigation was undertaken as appropriate and drains all secured with nylon suture. The laparoscope was removed as well as a Parth cannula and irrigation undertaken. Excess irrigation with fluid was suctioned free. The upper abdominal fascial incision was reapproximated with running 0 PDS suture. Subcutaneous tissue was irrigated and skin closed with interrupted 3-0 Vicryl. Steri-Strips were applied as was an Acticoat dressing. Portions of Acticoat were applied to the drain sites as well. The ileostomy itself remained viable and an appliance was applied to that area. It was noted by anesthesia and nurse during the course of operation that there was really no urine output. Conferring with the nurse who placed a Dunn catheter, there was no resistance to passage of the catheter and it appeared to engage well with inflation of the balloon. The drapes were removed and attention turned towards the Dunn catheter at the urethral meatus. Close examination did show blood in the urethra and although not copious in amount, suspicious for more proximal urethral injury. On that basis, cystoscopy was deemed appropriate. The dunn catheter balloon was decompressed and the cathter was removed. Using sterile technique and an irrigating flexible cystoscope and separate gloves, gowns and so forth flexible Electronically Signed By: MICHAEL PRO MD 07/15/22 1142 PATIENT NAME: DAVID POTTS OPERATIVE REPORT DATE OF : 57 REPORT #: [id number] PHYSICIAN: MICHAEL PRO MD PCP: Tristan Carrera DO REPORT IS CONFIDENTIAL AND NOT TO BE RELEASED WITHOUT AUTHORIZATION [facility] [address], [place] [address] Signed cystoscopy was then performed. Passage of the cystoscope through the course of the urethra showed no sign of problem until a blood clot noted in the region of the prostatic urethra on the bladder side. There appeared to be a bit of a shelf in this area. Cystoscope was passed into the bladder without problem. The contents of the bladder were somewhat murky and poorly defined. Ultimately, a flexible wire was passed down the cystoscope to well within the bladder. The cystoscope was removed and a latex-free (silicone) Dunn catheter was cut to appropriate configuration to allow the hole to pass over the wire. The Dunn catheter was passed over the wire with all due care into the bladder, which allowed for egress of urine. The wire was carefully removed after inflation of the bladder balloon. Hematuria was noted but there was no sign of blood clot. The patient was ultimately extubated and transferred to the recovery room in good condition, having suffered only the urethral catheterization injury. Sponge, needle and instrument counts werer reported as correct. Blood loss was less than 50 cc in aggregate. MD ARIA Mane/ALEXL /[id number] cc: Dr. Debi Bills Copies: ~ Electronically Signed By: MICHAEL PRO MD 07/15/22 1142 PATIENT NAME: DAVID POTTS OPERATIVE REPORT DATE OF : 57 REPORT #: [id number] PHYSICIAN: MICHAEL PRO MD PCP: Tristan Carrera DO REPORT IS CONFIDENTIAL AND NOT TO BE RELEASED WITHOUT AUTHORIZATION
== END 2022-07-15 12:15 | disposition home or self-care (01) | DRG 863 ==
LOC: ED 14:44 → MS 14:46
PROVIDERS: ADMIT Surgery; ATTEND Surgery
PROC: 0J9800Z Drainage of Abdomen Subcutaneous Tissue and Fascia with Drainage Device, Open Approach (ICD-10-PCS; principal; 2022-07-13 17:00)
PROC: 0TJB8ZZ Inspection of Bladder, Via Natural or Artificial Opening Endoscopic (ICD-10-PCS; 2022-07-13 17:00)
PROC: 0T9B70Z Drainage of Bladder with Drainage Device, Via Natural or Artificial Opening (ICD-10-PCS; 2022-07-13 17:00)
DX: T81.41XA Infection following a procedure, superficial incisional surgical site, initial encounter (principal); L02.211 Cutaneous abscess of abdominal wall; L03.311 Cellulitis of abdominal wall; M10.9 Gout, unspecified; G47.00 Insomnia, unspecified; Z20.822 Contact with and (suspected) exposure to COVID-19; K21.9 Gastro-esophageal reflux disease without esophagitis; I12.9 Hypertensive chronic kidney disease with stage 1 through stage 4 chronic kidney disease, or unspecified chronic kidney disease; E11.22 Type 2 diabetes mellitus with diabetic chronic kidney disease; E78.5 Hyperlipidemia, unspecified; E79.0 Hyperuricemia without signs of inflammatory arthritis and tophaceous disease; D63.1 Anemia in chronic kidney disease; N18.31 Chronic kidney disease, stage 3a; J45.909 Unspecified asthma, uncomplicated; Z96.652 Presence of left artificial knee joint; Z96.612 Presence of left artificial shoulder joint; Z86.718 Personal history of other venous thrombosis and embolism; Z90.49 Acquired absence of other specified parts of digestive tract; Z98.890 Other specified postprocedural states; Z88.1 Allergy status to other antibiotic agents; Z88.8 Allergy status to other drugs, medicaments and biological substances; Z91.040 Latex allergy status; Z79.899 Other long term (current) drug therapy; Y83.8 Other surgical procedures as the cause of abnormal reaction of the patient, or of later complication, without mention of misadventure at the time of the procedure
CPT/HCPCS: 00840; 36415; 80053; 80061; 83605; 85025; 94660; 94762; A9270; C9803; J1100; J1170; J1650; J1815; J1885; J2250; J2405; J2543; J2704; J3010; J7121; U0003

== ENCOUNTER 2022-07-27 11:11 | Inpatient (IN) | payer OTHER, MEDICARE ==
[~2022-07-27] VITALS: Ht 172.7 cm; Wt 68.0 kg
--- NOTE | ~2022-07-27 | DS ---
[facility] [address], [place] [address] Draft ADMISSION DATE: 07/27/2022 DISCHARGE DATE: 08/14/2022 HISTORY OF PRESENT ILLNESS: This 66-year-old white man has a complex and difficult past medical history dating back to March 2022, at which time he underwent subtotal colectomy with end-ileostomy for toxic megacolon. He had associated severe sepsis, renal failure, and other problems. Within 48 hours, he had ischemic necrosis of two additional segments of small bowel related to prolonged pressor agents required in the postop period ultimately requiring segmental small bowel resection and re-formation of end ileostomy with placement of drains. Since that time, he has recovered quite markedly, but has had persistent fluid drainage from the abdominal cavity through various drains placed at the time of the 2nd operation. Most recently he underwent placement of a right lower abdominal drain which had been dislodged while at an extended care facility as well as concurrent laparoscopy confirming a hostile abdomen. The drain that was placed was in the tube tract of the right lower quadrant. He has been seen by home health nurses today with complaints of pain and some purulent drainage in the region of the prior appendectomy scar inferior to the drain site itself. His ostomy continues to work well. I had called him at home to see him in the office, but he had already presented to the emergency room at that point. Evaluation in the emergency room included a CT scan of the abdomen as ordered by Dr. Kelly confirming inflammatory change of the right lower abdominal wall and a 2.5 cm purulent appearing fluid collection in the region as well as resolving fluid collections elsewhere in the abdomen as previously documented. The recently removed gastrostomy tube site showed air bubbles as would be expected. He is admitted for further evaluation and care. PERTINENT PHYSICAL EXAMINATION: GENERAL: Showed a well-developed, well-nourished white man who did not look toxic. VITAL SIGNS: Temperature is 97.3, pulse 87, blood pressure 114/77, O2 saturation on room air 100%. NECK: Trachea midline. CHEST: Clear. HEART: Regular without murmur. ABDOMEN: Soft and flat. There is no focal tenderness noted. A bandage is noted in the left upper abdomen from previous gastrostomy site drain from the right lower abdomen with recent replacement showed opaque mucopurulent yellowish material inferior to this area and previous distant appendectomy incision appears to be necessitation of purulent material. EXTREMITIES: Show no clubbing, cyanosis, or edema. (special note, the patient had a left venous thrombosis identified four weeks previously by Dr. Jin and has been on PATIENT NAME: DAVID POTTS DISCHARGE SUMMARY DATE OF : 57 REPORT #: [id number] PHYSICIAN: MICHAEL PRO MD PCP: Tristan Carrera DO REPORT IS CONFIDENTIAL AND NOT TO BE RELEASED WITHOUT AUTHORIZATION [facility] [address], [place] [address] Draft Eliquis since that time). LABORATORY STUDIES: Showed a white count of 6.5, hematocrit of 31.4, and platelets 214,000. Chem profile showed a creatinine of 1.65, potassium 3.3, glucose 100. Serology shows negative viral pathogen including COVID. HOSPITAL COURSE: Given the purulent material and necessitation from the right lower quadrant incision, exploration minimally of the wound sites and remedy of the drain was anticipated. As he was on Eliquis, delay to present to operation was undertaken. Therapeutic Lovenox was initiated as bridge therapy. On July 29, he underwent exploration of abdominal wall purulent area as well as laparotomy with extensive lysis of adhesions which were prolonged, complicated and difficult. Drainage of a right pararectal pelvic abscess (chronic drainage of left retroperitoneal chronic abscess and debridement) of abscess cavity wall was undertaken as well. He underwent drainage of right abscess and core excision of right abdominal wall chronic abscess drainage sites x2 and left abdominal wall drain site x1. He had repair of enterotomies x2 including the duodenal enterotomy requiring complex closure including omental patch. Incidentally, he required Sellers catheter placement using a flexible cystoscope with over the wire placement of a latex-free Sellers catheter due to urethral stricture in the region of the prostatic urethra. The drains that were replaced appeared to be draining only serous fluid initially and by postoperative day 2, he was tolerating clear liquids well and ostomy was functioning well. Open wounds were dressed with plain gauze. Cultures returned showing micron considered sensitive to cefoxitin. The patient has long-standing contended he had an allergy to Flagyl which was a drug of choice, but ultimately it was determined he in fact had no such allergy. Purulent drainage was once again noted on approximately postop day 4. By August 03, 2022, he had inadvertent unintended dislodgement of the left-sided abdominal drain despite being well sewn to the abdominal wall while getting out of bed to take a shower. The dislodgement of the drain was a concerning event, has purulent drainage emanated from it and well controlled drainage had been central to his ongoing recovery thus far. As it was postoperative day 5, it was deemed appropriate to re-enter the abdomen to replace a drain. On August 04, 2022, he underwent opening of the laparotomy incision with exploration of the abdomen and blunt and sharp lysis of adhesions. Peritoneal irrigation was undertaken. Segmental small bowel resection including end-to-end enteroenterostomy in the area of persistent and ongoing infection was undertaken. Noted was an infected segment of mesh associated with inflammatory bowel focus from distant history of incisional hernia repair. It was postulated the foreign body material of the mesh entangled with the bowel within the abdominal cavity was the source of ongoing infectious complications and surgical resection was deemed essential to allow for control of the now long-standing infectious focus of the intra-abdominal cavity. Additionally, he did require repeat PATIENT NAME: DAVID POTTS DISCHARGE SUMMARY DATE OF : 57 REPORT #: [id number] PHYSICIAN: MICHAEL PRO MD PCP: Tristan Carrera DO REPORT IS CONFIDENTIAL AND NOT TO BE RELEASED WITHOUT AUTHORIZATION [facility] [address], [place] [address] Draft flexible cystoscopy with placement of a latex-free Sellers catheter with over the wire technique as well as core excision of the persistent G-tube epithelialized epigastric site. Drains are once again placed and within 24 hours bile leak was noted from one of the drain sites. As true fistulization had never been part of his difficult postoperative course and he was within 48 hours of initial operation, re-exploration was once again undertaken on August 07, 2022. He was found to have a well-defined enteric leak of small bowel contents in a segment of small bowel that was thickened, though completely viable. Exploration of the abdomen with breakdown of newly formed interloop adhesions as well as extensive peritoneal lavage was undertaken. Repair of the enteric leak was undertaken with meticulous care and application of fibrin glue (Tisseel also undertaken). Three drains were placed, one in the deep pelvis, another in the left paracolic gutter area and another in the right paracolic gutter area. Thereafter, the patient had progressive and ongoing healing. He tolerated clear liquids and ultimately a regular diet. The drains were carefully monitored showing no evidence of purulence, bile leak or other problem. They were sequentially removed. Cultures of peritoneal fluid dominantly include Bacteroides fragilis. He was maintained with IV Levaquin and IV Flagyl, ultimately transitioned to oral Levaquin and oral Flagyl as well as maintained on Diflucan as trace yeast was noted in the cultures of peritoneal fluid. He did have some separation of the lower aspect of his skin at the wound site, but without fascial disruption or purulent drainage. This was packed with gauze after removal of 3 nichol. By day of discharge, he is ambulating independently, is able to change the lower aspect of his incision with plain gauze independently. The ostomy is functioning well. The other incision sites which have been closed, show no evidence of infection or purulence. He does have some pedal edema as well as some right abdominal wall edema, but no sign of erythema or cellulitis. DISCHARGE MEDICATIONS: Will include: 1. Levaquin 500 mg one p.o. daily, #10, no refill. 2. Fluconazole 200 mg p.o. daily, #10, no refill. 3. Flagyl 250 mg p.o. t.i.d. #30, no refill. 4. Flomax 0.4 mg p.o. daily #30, refill 6. 5. Tylenol 500 mg two tablets p.o. q.6 hours as needed for pain #60. 6. Lasix 20 mg p.o. daily #20, no refill. 7. Lidocaine pain release patch as needed for back. 8. Multivitamin one p.o. daily #30, refill 4. 9. Potassium chloride 20 mEq tablets p.o. daily #20, no refill. 10. Zofran 8 mg sublingual as needed q.6 hours for nausea, #20, refill 1. 11. He will continue his usual medications of allopurinol 300 mg half tablet p.o. daily. PATIENT NAME: DAVID POTTS DISCHARGE SUMMARY DATE OF : 57 REPORT #: [id number] PHYSICIAN: MICHAEL PRO MD PCP: Tristan Carrera DO REPORT IS CONFIDENTIAL AND NOT TO BE RELEASED WITHOUT AUTHORIZATION [facility] [address], [place] [address] Draft 12. Azelastine eyedrops 0.05% one drop to affected eye b.i.d. for allergic conjunctivitis. 13. Fluticasone spray, two sprays nasal as needed for congestion. 14. Simvastatin 20 mg p.o. at bedtime for cholesterol elevation. 15. Melatonin 6 mg at bedtime for insomnia. 16. Famotidine 20 mg p.o. daily as needed for reflux. 17. Ozempic semaglutide injection 0.5 mg subcutaneously weekly. 18. Apixaban 5 mg p.o. b.i.d. 19. Magnesium oxide 400 mg p.o. b.i.d. 20. Indapamide 1.25 mg tablet p.o. daily. 21. Spironolactone 25 mg p.o. daily. He will discontinue oxycodone and Tylenol. DISCHARGE DIAGNOSES: 1. Persistent intra-abdominal abscesses with spontaneous necessitation right lower abdominal previous incision site and egress from drain site. 2. Status post exploration of abdomen, replacement of drains and irrigation. 3. Re-exploration with segmental bowel resection, resection of infected focus with foreign body (previous mesh implant from distant past with end-to-end anastomosis, extensive lysis of adhesions). 4. Additional reexploration for bilious enteric fluid leak status post repair of enteric fluid leak and application of fibrin glue and placement of drains. 5. Distant history (March) toxic megacolon, status post subtotal colectomy with end ileostomy. 6. Status post early postop period March 2022, re-exploration with segmental small bowel resection for necrosis related to pressor agent requirements with re-formation of ileostomy and bowel resection. 7. Gout. 8. Hypertension. 9. Gastroesophageal reflux. 10. Urethral stricture. 11. Left deep venous thrombosis with ongoing treatment anticoagulant (apixaban) May 2022. MD ARIA Mane/MODL /[id number] PATIENT NAME: DAVID POTTS DISCHARGE SUMMARY DATE OF : 57 REPORT #: [id number] PHYSICIAN: MICHAEL PRO MD PCP: Tristan Carrera DO REPORT IS CONFIDENTIAL AND NOT TO BE RELEASED WITHOUT AUTHORIZATION [facility] [address] [place] [id number] Draft cc: Dr. Michael Carrera DO Copies: Tristan Carrera DO ~ PATIENT NAME: DAVID POTTS DISCHARGE SUMMARY DATE OF : 57 REPORT #: [id number] PHYSICIAN: MICHAEL PRO MD PCP: Tristan Carrera DO REPORT IS CONFIDENTIAL AND NOT TO BE RELEASED WITHOUT AUTHORIZATION
[~2022-07-27 11:11] MED LIST changes: +ACETAMINOPHEN500 MG PO; +CLINDAMYCIN HC300 MG PO; +DOXYCYCLINE HY100 MG PO; +FAMOTIDINE20 MG PO; +ONE DAILY WITH1 EACH PO; +OZEMPIC0.25 MG/0. SUB-Q; +PEPCID20 MG PO; +PERCOCET 7.5-31 EACH PO; +PROMETHAZINE HC25 M1 PO; +THERA-M TABLET1 EACH PO
--- OUTSIDE RECORDS SUMMARY | 2022-07-27 11:14 | XMS ---
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 Physician Regional Liaison Current PHONE: Unknown EULA HURTADO Nurse Cathleen Current PHONE: Unknown DIANA NEWSOME Nurse Practitioner Rachel FUENTES PHONE: [phone] [facility] Nursing [facility] Current PHONE: Unknown [facility]ONE: [phone] JACKSON GREENE Physician Current PHONE: Unknown Max has no Care Guidelines for this patient. Tamara VISIT COUNT (12 MO.) 7 PEGGY Andersen TOTAL 7 NOTE: Visits indicate total known visits. ED/C VISIT TRACKING (12 MO.) 07/27/2022 11:12 [facility] [place] TYPE: Emergency COMPLAINT: - OPEN WOUNDS 07/10/2022 14:45 [facility] TYPE: Emergency COMPLAINT: - WOUND CHECK 06/08/2022 15:07 [facility] [place] TYPE: Emergency COMPLAINT: - ABDOMINAL PAIN 06/05/2022 14:08 [facility] TYPE: Emergency COMPLAINT: - POSS BLOOTCLOT DIAGNOSES: - Hypertensive chronic kidney disease with stage 1 through stage 4 chronic kidney disease, or unspecified chronic kidney disease - Unspecified asthma, uncomplicated - Localized edema - Latex allergy status - Other terminologist (current) drug therapy - Allergy status to other drugs, medicaments and biological substances - Type 2 diabetes mellitus with diabetic chronic kidney disease - Chronic kidney disease, stage 3 unspecified - Acute embolism and thrombosis of unspecified deep veins of left distal lower extremity - Acute embolism and thrombosis of left femoral vein 05/28/2022 18:26 [facility] [place] TYPE: Emergency COMPLAINT: - BLOOD PRESSURE PROBLEM DIAGNOSES: - Essential (primary) hypertension - Allergy status to other drugs, medicaments and biological substances - Latex allergy status - Unspecified asthma, uncomplicated - Other penitentiary (current) drug therapy - Type 2 diabetes mellitus without complications - Unspecified abdominal pain 05/11/2022 09:27 [facility] TYPE: Emergency COMPLAINT: - SHOB 03/30/2022 07:20 [facility] TYPE: Emergency COMPLAINT: - LOWER ABD PAIN, N/V, HIGH B/SUGAR, SOB INPATIENT VISIT TRACKING (12 MO.) 07/10/2022 19:36 [facility] TYPE: Medical Surgical COMPLAINT: - ABDOMINAL WALL ABSCESS AND FISTULA FORMATION DIAGNOSES: - Personal history of other venous thrombosis and embolism - Anemia in chronic kidney disease - Gastro-esophageal reflux disease without esophagitis - Hyperuricemia without signs of inflammatory arthritis and tophaceous disease - Infection following a procedure, superficial incisional surgical site, initial encounter - Hypertensive chronic kidney disease with stage 1 through stage 4 chronic kidney disease, or unspecified chronic kidney disease - Gout, unspecified - Allergy status to other antibiotic agents - Other surgical procedures as the cause of abnormal reaction of the patient, or of later complication, without mention of misadventure at the time of the procedure - Latex allergy status - Allergy status to other drugs, medicaments and biological substances - Cutaneous abscess of abdominal wall - Fistula of intestine - Contact with and (suspected) exposure to COVID-19 - Cellulitis of abdominal wall - Acquired absence of other specified parts of digestive tract - Personal history of other venous thrombosis and embolism - Gastro-esophageal reflux disease without esophagitis - Presence of left artificial shoulder joint - Presence of left artificial knee joint - Other specified postprocedural states - Other surgical procedures as the cause of abnormal reaction of the patient, or of later complication, without mention of misadventure at the time of the procedure - Other penitentiary (current) drug therapy - Insomnia, unspecified - Hypertensive chronic kidney disease with stage 1 through stage 4 chronic kidney disease, or unspecified chronic kidney disease - Hyperlipidemia, unspecified - Allergy status to other antibiotic agents - Anemia in chronic kidney disease - Gout, unspecified - Infection following a procedure, superficial incisional surgical site, initial encounter - Hyperuricemia without signs of inflammatory arthritis and tophaceous disease - Insomnia, unspecified - Chronic kidney disease, stage 3a - Acquired absence of other specified parts of digestive tract - Other specified postprocedural states - Type 2 diabetes mellitus with diabetic chronic kidney disease - Cellulitis of abdominal wall - Other terminologist (current) drug therapy - Presence of left artificial shoulder joint - Hyperlipidemia, unspecified - Presence of left artificial knee joint - Latex allergy status - Type 2 diabetes mellitus with diabetic chronic kidney disease - Allergy status to other drugs, medicaments and biological substances - Contact with and (suspected) exposure to COVID-19 - Chronic kidney disease, stage 3a - Unspecified asthma, uncomplicated - Unspecified asthma, uncomplicated 06/08/2022 19:[address] [facility] [place] TYPE: Medical Surgical COMPLAINT: - ACUTE RENAL FAILURE DIAGNOSES: - Ileostomy status - Type 2 diabetes mellitus with diabetic chronic kidney disease - Contact with and (suspected) exposure to COVID-19 - Cerebral palsy, unspecified - Acute kidney failure, unspecified - Allergy status to other antibiotic agents - Unspecified asthma, uncomplicated - Acute embolism and thrombosis of left femoral vein - Hypo-osmolality and hyponatremia - Other penitentiary (current) drug therapy - Hypertensive chronic kidney disease with stage 1 through stage 4 chronic kidney disease, or unspecified chronic kidney disease - Chronic kidney disease, stage 3b - ACIDOSIS, UNSPECIFIED - Hyperkalemia - Acidosis, unspecified - Hypercalcemia - Elevated white blood cell count, unspecified - Hyperlipidemia, unspecified - Hyperuricemia without signs of inflammatory arthritis and tophaceous disease - Allergy status to other drugs, medicaments and biological substances - Anemia in chronic kidney disease - prison (current) use of anticoagulants - Latex allergy status 05/11/2022 15:[address] [facility] [place] TYPE: Medical Surgical COMPLAINT: - INTRA ABD ABSCESSES,SUBCUTANEOUS WOUND ABSCESS DIAGNOSES: - Cutaneous abscess of abdominal wall - [...] Presence of left artificial knee joint - Contact with and (suspected) exposure to [...] Peritoneal abscess - Gout, unspecified - Other terminologist (current) drug therapy - Type 2 diabetes mellitus without complications - Other specified postprocedural states - Other terminologist (current) drug therapy 03/30/2022 13:[address] [facility] [place] TYPE: Medical Surgical COMPLAINT: - SEVERE SEPSIS DIAGNOSES: - Type 2 diabetes mellitus with diabetic chronic kidney disease - Chronic kidney disease, stage 3 unspecified - Acute kidney failure with tubular necrosis - Acute dilatation of stomach - Severe sepsis with septic shock - Other penitentiary (current) drug therapy - Type 2 diabetes mellitus with hyperglycemia - intermodal customer service (current) use of antibiotics - Severe sepsis with septic shock - Bloodstream infection due to central venous catheter, initial encounter - Acute kidney failure, unspecified - Other secondary thrombocytopenia - Contact with and (suspected) exposure to COVID-19 - Contact with and (suspected) exposure to COVID-19 - intermodal customer service (current) use of antibiotics - Acquired absence [...] status to other antibiotic agents - Other penitentiary (current) drug therapy - Gastro-esophageal reflux disease [...] effect of unspecified systemic antibiotic, initial encounter [email or web address]
[2022-07-27] MEDS ORDERED: MAGNESIUM400 M1 PO ×2 (13:48→13:49)
[2022-07-27] MEDS ORDERED: FLOMAX0.4 MG PO (13:51)
--- NOTE | 2022-08-02 13:28 | HP ---
[facility] [address], [place] [address] Signed ADMISSION DATE: 07/27/2022 REASON FOR ADMISSION: Necessitation of right lower abdominal wall abscess; history of multiple medical interventions including drains. HISTORY OF PRESENT ILLNESS: This 66-year-old white man has a difficult past medical history dating back to March of 2022 at which time he underwent subtotal colectomy with end ileostomy. He had associated severe sepsis, renal failure, and other problems. He subsequently had ischemic necrosis of two segments of small bowel related to prolonged pressor agents in the post op periord ultimately requiring segemental bowel resection and reformat ileostomy with placement of drains. Since that time, he has recovered quite markedly, but has had persistent fluid drainage from the abdominal cavity through various drains placed at time of 2nd operation. Quite recently, he underwent replacement of the right lower abdominal drain, which had been dislodged while at an extended care facility as well as laparoscopy confirming a hostile abdomen generally speaking. The drain that was replaced was in the tube tract in the right lower quadrant. He was seen by home health nurse today with complaints of pain and some purulent drainage in the region of prior appendectomy scar from the past and was directed to the emergency room. I had called his home to see him in the office, but he had already presented to the emergency room at that point. Evaluation in the emergency room included a CT scan as ordered by Dr. Kelly confirming inflammatory changes of right lower abdominal wall and a 2.5 cm purulent appearing fluid collection in the region as well as resolving of fluid collections elsewhere in the abdomen from previously, and recently removed gastrostomy tube showed air bubbles and so forth as would be expected. Given the findings of his abdominal wall drainage, irrespective of the drain site itself and ileostomy, I have recommended admission to the hospital, anticipating additional abdominal wall drainage procedures soon. PHYSICAL EXAMINATION: GENERAL: Shows a well-developed, well-nourished white man, who looks nontoxic in every way. VITAL SIGNS: Temperature was 97.3, pulse 87, blood pressure 114/77, O2 saturation on room air 100%. NECK: Trachea is midline. He has no hoarseness. CHEST: Shows normal respiratory excursion. He has no tachypnea. Electronically Signed By: MICHAEL PRO MD 08/02/22 1328 PATIENT NAME: DAVID POTTS HISTORY AND PHYSICAL DATE OF : 57 REPORT #: [id number] PHYSICIAN: MICHAEL PRO MD PCP: Tristan Carrrea DO REPORT IS CONFIDENTIAL AND NOT TO BE RELEASED WITHOUT AUTHORIZATION [facility] [address], [place] [address] Signed ABDOMEN: Soft and flat. No focal tenderness is noted. Bandage is noted in the left upper quadrant and previous gastrostomy tube drainage site. The drain is emanating from the right lower abdomen, which was replaced recently showing an opaque mucopurulent yellowish material. Inferior to this is area of prior appendectomy incision, where there appears to be possible necessitation of purulent material. EXTREMITIES: Show no clubbing, cyanosis, or edema. LABORATORY STUDIES: Showed a white count of 6.5, hematocrit 31.4, platelets 214,000. Chem profile abnormal for elevated creatinine of 1.65, potassium of 3.3, glucose of 100. Serology shows negative viral pathogens on current panel including negative COVID. I reviewed the CT scan in detail as well as interpretations of it. There appears to be inflammatory change of the right lower abdominal wall. The drain was placed or replaced with that. Most recent intervention appears to be largely extraperitoneal. The ileostomy appears to be functioning well. There is GI contrast within the ostomy appliance. ASSESSMENT: He appears to have possible necessitation of purulent material from a previous incision site, not far from the ileostomy and not far either from the previously placed drain. I have recommended admission to the hospital, antibiotic therapy, IV fluid resuscitation and consideration for operative drainage of the right lower quadrant subcutaneous soft tissue fluid collection and possible abscess drainage. I have reviewed his CT scan in detail and fluid collections that previously were present have been progressively decreasing in size and shape and his clinical appearance is far greater than what might have been expected based on radiographic findings. The long-term intention is to allow for operative exploration and reversal of his end ileostomy by ileoproctostomy. The intermediate goal was to allow for continued resolution of abdominal inflammatory changes allowing for exploration and correction of any source of his ongoing fluid drainage, specifically low-grade or small fistula or abscess. All of these issues have been previously well described in other recent admission and history documentation. One issue of significant note is the fact, he is on Eliquis and has been for a DVT identified in his left leg approximately in May. This was managed by Dr. Jin at that time. He will be maintained off his anticoagulant and given Lovenox bridge therapy. He may require more than a day off his Eliquis to allow for enough resolution of his anticoagulant effect. On the other hand, given his appearance on CT scan with a largely subcutaneous and possibly intramuscular fluid collection complete reversal may not be necessary, it will be further considered. Electronically Signed By: MICHAEL PRO MD 08/02/22 1328 PATIENT NAME: DAVID POTTS TERESO HISTORY AND PHYSICAL DATE OF : 57 REPORT #: [id number] PHYSICIAN: MICHAEL PRO MD PCP: Tristan Carrera DO REPORT IS CONFIDENTIAL AND NOT TO BE RELEASED WITHOUT AUTHORIZATION [address] [place], [place] [address] Signed MD ARIA Mane/ALEXL /[id number] cc: Tristan Carrera DO Copies: Tristan Carrera DO ~ Electronically Signed By: MICHAEL PRO MD 08/02/22 1328 PATIENT NAME: DAVID POTTS HISTORY AND PHYSICAL DATE OF : 57 REPORT #: [id number] PHYSICIAN: MICHAEL PRO MD PCP: Tristan Carrera DO REPORT IS CONFIDENTIAL AND NOT TO BE RELEASED WITHOUT AUTHORIZATION
--- NOTE | 2022-08-02 13:28 | OR ---
[facility] [address], [place] [address] Signed DATE OF OPERATION: 07/29/2022 SURGEON: Michael Pro MD PREOPERATIVE DIAGNOSES: 1. Persistent purulent drainage of right abdominal wall, intraabdominal drain and spontaneous egress of mucopurulent material from right-sided prior appendectomy site and a left-sided drain site. 2. 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 3. Subsequent ischemic necrosis of small bowel segments requiring reoperation segmental small bowel resection x2 and re-formation of ileostomy. 4. Persistent drainage of mucopurulent discharge from drains over time (improving). 5. History of left deep venous thrombosis May 2022 with chronic anticoagulation. POSTOPERATIVE DIAGNOSES: 1. Extensive intraabdominal adhesions. 2. Well-formed chronic abscess cavities x3 (right para coelomic cavity, left retroperitoneal area and right pelvic pararectal area. 3. Chronic urethral stricture. PROCEDURE: 1. Attempted (failed) Sellers catheter placement requiring flexible cystoscopy with over the wire placement of latex-free Sellers catheter. 2. Laparotomy with extensive lysis of adhesions, prolonged complicated and difficult. 3. Drainage of right perirectal pelvic abscess (chronic, drainage of left retroperitoneal chronic abscess and debridement and excision of abscess cavity wall. 4. Drainage of right para coelomic abscess. 5. (Core) excision of right abdominal wall chronic abscess drainage sites x2 and left abdominal wall drainage site x1. 6. Repair of enterotomy x2 including duodenal enterotomy requiring complex closure including omental patch. All this prolonged complicated and difficult. OPERATIVE TIME: 1:00 p.m. to 8:00 p.m. ANESTHESIA: General endotracheal; Radha Araiza TECHNICAL CUSTOMER SUPPORT SPECIALIST, and Zay Euceda, TECHNICAL CUSTOMER SUPPORT SPECIALIST, and postoperative bilateral tap blocks. Electronically Signed By: MICHAEL PRO MD 08/02/22 1328 PATIENT NAME: DAVID POTTS OPERATIVE REPORT DATE OF : 57 REPORT #: [id number] PHYSICIAN: MICHAEL PRO MD PCP: Tristan Carrera DO REPORT IS CONFIDENTIAL AND NOT TO BE RELEASED WITHOUT AUTHORIZATION [facility] [address], [place] [address] Signed INDICATION: This 66-year-old white man has complex past medical history including initially severe septic shock related to acute toxic megacolon from perforated diverticulitis requiring subtotal colectomy with end ileostomy. Intensive pressor therapy was required for survival, which did allow for preservation of renal function with preservation of mean arterial pressure, but subsequent segmental small bowel infarction requiring relaparotomy, segmental bowel resection x2 and re-formation of ileostomy with placement of drains. Over many months, he has recovered fully and is highly functional with an end ileostomy, but drains that were placed continued to have drainage of a milky material, nonbilious, and no clear evidence of a fistula. Given the almost certainly forbidden abdominal cavity to allow for reexploration sooner, he has been managed as an outpatient with a single drain on the right side which continues to drain mucopurulent discharge. He has undergone replacement of the drain, which was explanted unintendedly while at a assisted, with concurrent laparoscopy in the past few weeks. He remains free of sepsis with maintenance of good renal function, but in the past few days has developed drainage from a prior appendectomy site suggestive of fistula or spontaneous necessitation of intraabdominal infective product process. CT scan was performed recently (several have been performed previously showing shrinkage of fluid collections). At this point, I have recommended a more thorough abdominal examination drainage of abscesses or fluid collections as necessary and other indicated procedures. It is unlikely he would be fully ready for takedown of the ileostomy anticipating the ileoproctostomy that is the long-term goal. The risks of bleeding, infection, bowel injury resulting in fistula formation, and other unforeseen complications was reviewed with him. He understands and wished to proceed. FINDINGS: Ileostomy itself was healthy, pink, and viable. Egress of purulent material from a right lower abdominal previous distant incision site was noted as well as the drain site in the right abdomen from recent placement of a Raúl drain. Additionally, drain sites on the left abdomen had mucopurulent drainage as well. They were ultimately excised completely. Laparotomy did show a hostile abdomen generally speaking. Meticulous care was made for mobilizing of small bowel loops, ultimately identifying three abscess cavities, one in the right abdominal area, another in the left retroperitoneum and the 3rd in the deep pelvis, right perirectal space. All of these were debrided of a firm fibrous capsule and opened fully and drained well. The small bowel itself showed no evidence of fistula, no tumor or other similar finding. Enterotomy was made in the proximal jejunum which was repaired as well as a small duodenostomy presumably the 2nd portion of the duodenum, which was repaired with meticulous care including support with a Varun patch. Notably, at the outset of the procedure, passage of Sellers catheter was not possible and Electronically Signed By: MICHAEL PRO MD 08/02/22 1733 PATIENT NAME: DAVID POTTS OPERATIVE REPORT DATE OF : 57 REPORT #: [id number] PHYSICIAN: MICHAEL PRO MD PCP: Tristan Carrera DO REPORT IS CONFIDENTIAL AND NOT TO BE RELEASED WITHOUT AUTHORIZATION [facility] [address], [place] [address] Signed this required flexible cystoscopy and over the wire placement of a Sellers catheter (latex-free). DESCRIPTION OF PROCEDURE: The patient was brought to the operating room, given a general endotracheal anesthetic. Preoperative antibiotic Levaquin had been given. The bandages of the abdominal wall were removed as was the ostomy itself. The ostomy was viable and pink. The patient had urethral disruption at the urethral bladder junction on previous operative intervention, though a traumatic Sellers catheterization had been undertaken another time in the past. His previous operation did require cystoscopy, placement of a Sellers catheter and maintenance of the Sellers catheter for 14 days before removal last week. I personally planned to do the Sellers catheter and that was done in the typical sterile technique, but would not clearly pass urine. On that basis, the genitalia was prepared with a Betadine solution and draped sterilely and a flexible cystoscope was passed through the urethral meatus. Examination showed the urethra largely to be uninjured, but it did show a narrow junction of the most proximal urethra. The cystoscope was able to manipulate past the area and into the bladder itself. The bladder was normal. Atfer the flexible wire was passed down the cystoscope channel and the cystoscope removed stabilizing the wire, a latex 16-Romansh Sellers catheter was well lubricated with the tip cut off, the Sellers was passed over the wire without problem into the bladder. The wire was removed. Egress of clear urine was noted. It was attached to a Sellers catheter after inflating the balloon 5 mL. Plans were then made for operation itself. The abdomen was prepared with a Betadine based solution and draped sterilely. A small Sellers catheter was placed and inflated in the ileostomy to stem ileal content egress from it during the course of the operation. A midline laparotomy site by this time (several months since the original operation) was reasonably soft. An incision was made cephalad to the umbilicus based on the previous findings noted at laparoscopy in the past few weeks. Meticulous care was made entering into the abdomen, but immediately noted was an enterotomy. This site was recognized promptly and dissection was begun above and below that site with meticulous care, freeing the bowel loop from the abdominal wall. This was done with laborious care using sharp and electrocautery dissection. Once the bowel was completely freed, it was easily repaired with a running 3-0 Vicryl suture in the mucosal layer and interrupted 3-0 silk suture for the serosal layer. Intraabdominal inspection showed areas of filmy adhesions and some areas with dense loops of bowel nearly fused together as would be expected three months from the original operation. The bowel was freed from the right side of the abdomen, which was long, Electronically Signed By: MICHAEL PRO MD 08/02/22 1328 PATIENT NAME: DAVID POTTS OPERATIVE REPORT DATE OF : 57 REPORT #: [id number] PHYSICIAN: MICHAEL PRO MD PCP: Tristan Carrera DO REPORT IS CONFIDENTIAL AND NOT TO BE RELEASED WITHOUT AUTHORIZATION [address] [address] Signed lengthy and laborious. Ultimately, the right-sided drain and the inflammatory process was identified and from bowel loops on the right side. There was no fistula, but a well-formed fibrous cavity representing an abscess in part related to the drain tract that had been placed at the original operation. The bowel loops were freed completely from the abdominal wall in this area. Further dissection was undertaken cephalad. It was difficult to distinguish small bowel loops from duodenum and ultimately the stomach was identified and the gastrostomy site identified as well. Despite meticulous care, a small enterotomy was made- most likely in the 2nd portion of the duodenum. This area was freed with sharp dissection and meticulous repair undertaken with interrupted 3-0 Vicryl in the mucosal layer and interrupted 3-0 silk in the serosal layer and later mobilization of omental pedicle applied as a Varun patch to the site. Subsequent application of fibrin glue ( Tisseal) was done also. The bowel loops in the region of the ileum were well identified. There was no sign of fistula or damage to this area. Further dissection in the right lateral abdominal area showed the area of egress of purulent material where the drain was in place, which was mostly in the extraperitoneal space, with only a small portion of the drain in the intraperitoneal space. The drain was then removed. Further dissection in the mid abdomen allowed for identification of the rectal stump, though it was fused to surrounding small bowel as well. The fibrous tract of the previous pelvic drain was followed deep into the depths of the pelvis finding purulent material. This space was more extensive than expected and extended deep into the pelvis itself. This was packed with guaze for temporary hemostasis. Change of position in the operating table was made and dissection was undertaken on the left side of the abdomen. Similar fusion of bowel loops to the midline fascia were noted that were taken down safely with electrocautery and sharp dissection causing no further enterotomy or other problem. The bowel loops on the left side were freed with meticulous care, which was extremely time consuming. Ultimately, the proximal jejunum was identified as were other proximal small bowel loops. Dissection was taken inferiorly to the retroperitoneum where a firm fibrous capsule was noted. Entry to this capsule showed purulent material. This was Gram stained and cultured. Not mentioned previously was Gram stain and culture of the original abscess in the right side of the abdomen. Stat Gram stains on the right fluid showed no organisms, only white cells. On the left side showed numerous gram-negative rods. The fibrous capsule corresponded to the previous drain placement. The fibrous capsule was incised with all due care, cleaned, opened and suctioned its inside contents. There was no associated fistula of the small bowel or other similar findings. The small bowel loops were freed as much as possible from the left side, again confirming no undrained fluid collections nor signs of enterotomy or chronic fistula formation. Irrigation was undertaken throughout the Electronically Signed By: MICHAEL PRO MD 08/02/22 1328 PATIENT NAME: DAVID POTTS OPERATIVE REPORT DATE OF : 57 REPORT #: [id number] PHYSICIAN: MICHAEL PRO MD PCP: Tristan Carrera DO REPORT IS CONFIDENTIAL AND NOT TO BE RELEASED WITHOUT AUTHORIZATION [address] [address] Signed abdominal cavity. Although I was tempted to further dissect and consider takedown of the ileostomy performing an ileoproctostomy, given the three intraabdominal abscesses that were identified and his overall burden of operation by this point it was deemed inadvisable to proceed in that way and the ileostomy was left in place, anticipating takedown in the distant future. Re-evaluation of the small bowel showed viability throughout. An omental patch to the duodenal repair had been undertaken. Fibrin glue was applied to this area as was the enterotomy that was otherwise repaired. Three drains were placed, one in the right side of the abdomen, the other in the left retroperitoneum and the 3rd in the deep pelvis in those areas for which drainage had been undertaken. The inner aspect of the right lower abdominal wound site which was quite markedly inflamed and served as a focus of necessitation to the abdominal wall was excised and passed to his pathology. The fascial defect was reapproximated with running #1 PDS suture. The drain sites which had purulent material were excised with electrocautery technique down to the fascial layer and fascial layer closed. This included two on the right side inferior to the ileostomy and one on the left side. They were subsequently packed with iodoform gauze. Further irrigation was undertaken in the abdomen, there appeared to be no signs of ischemic bowel. No signs of fistula or bowel injury and plans were then made for closure. The midline fascia was reapproximated with running bidirectional #1 PDS suture. Subcutaneous tissue irrigated and skin closed loosely with clip device. An ileostomy appliance was applied to the abdominal wall. A Sellers catheter was allowed to remain in place. Tap blocks were then performed by the city controller bilaterally. He was ultimately extubated and transferred to recovery room in good condition. Blood loss was estimated 200 mL. Sponge, needle, and instrument counts reported as correct x3. The operation was prolonged, complicated, and difficult lasting 7 hours, from 1:00 p.m. to 8:00 p.m., but was accomplished safely and with high expectation of improvement. It is anticipated that he in the fpc will be able to undergo takedown of the ileostomy and pentecostalism of gastrointestinal continuity. Electronically Signed By: MICHAEL PRO MD 08/02/22 4693 PATIENT NAME: DAVID POTTS OPERATIVE REPORT DATE OF : 57 REPORT #: [id number] PHYSICIAN: MICHAEL PRO MD PCP: Tristan Carrera DO REPORT IS CONFIDENTIAL AND NOT TO BE RELEASED WITHOUT AUTHORIZATION [place] [id number] [place] [place], [place] [address] Signed MD ARIA Mane/MODL /[id number] cc: DO Kishor Giraldo MD Copies: Tristan Carrera LOHITH MD ~ Electronically Signed By: MICHAEL PRO MD 08/02/22 1328 PATIENT NAME: DAVID POTTS OPERATIVE REPORT DATE OF : 57 REPORT #: [id number] PHYSICIAN: MICHAEL PRO MD PCP: Tristan Carrera DO REPORT IS CONFIDENTIAL AND NOT TO BE RELEASED WITHOUT AUTHORIZATION
[2022-08-03] MEDS ORDERED: INDAPAMIDE1.25 MG PO (11:43)
[2022-08-03] MEDS ORDERED: SPIRONOLACTONE25 MG PO (11:43)
--- NOTE | 2022-08-05 11:39 | PATH ---
[facility] [address] [facility] [place], [place] [address] Signed SPECIMEN(S): A RUQ ABSCESS CAVITY SPECIMEN(S): B ABSCESS CAVITY WALL SPECIMEN(S): C RLQ ABSCESS TRACT SPECIMEN(S): D LLQ DRAIN TRACT SPECIMEN(S): E RT SIDED WOUND TRACT #1 SPECIMEN(S): F RT SIDED WOUND TRACT #2 SPECIMEN SOURCE: A. RUQ ABSCESS CAVITY B. ABSCESS CAVITY WALL C. RLQ ABSCESS TRACT D. LLQ DRAIN TRACT E. RT SIDED WOUND TRACT #1 F. RT SIDED WOUND TRACT #2 CLINICAL HISTORY: Abdominal wall abscess. FINAL PATHOLOGIC DIAGNOSIS: A. Right upper quadrant abscess cavity: - Benign soft tissue with central abscess and granulation tissue. - Negative for atypical features or evidence of malignancy. B. Abscess cavity wall: - Fragments of acute inflammation and abscess with adjacent granulation tissue and benign soft tissue. C. Right lower quadrant abscess drain tract: - Fragments of acute inflammation and abscess with adjacent foreign body (favor suture material) reaction, granulation tissue and benign soft tissue. D. Left lower quadrant drain tract: - Fragments of acute inflammation and abscess, multinucleated histiocyte, adjacent granulation tissue and benign soft tissue. E. Right sided wound tract #1: - Acute abscess with focal foreign body-type reaction and granulation tissue. - Negative for atypical features or malignancy. F. Right sided wound tract #2: - Benign skin and soft tissue with acute inflammation, abscess, adjacent granulation tissue and focal foreign body-type reaction. JVR:[id number] MICROSCOPIC EXAMINATION: PATIENT NAME: DAVID POTTS PATHOLOGY DATE OF : 57 REPORT #: [id number] PHYSICIAN: CHARLES BURT PCP: Tristan Carrera DO REPORT IS CONFIDENTIAL AND NOT TO BE RELEASED WITHOUT AUTHORIZATION [facility] [address] [place], [place] [address] Signed Histologic sections of all submitted blocks are examined by light microscopy. These findings, together with the gross examination, support the pathologic diagnosis. GROSS DESCRIPTION: A. The specimen, labeled and designated "Javid, right upper quadrant abscess cavity," is received in formalin and consists of a single fragment of rubbery, jones soft tissue with attached yellow-jones fibroadipose tissue measuring 3.7 x 2.8 x 1.5 cm. The specimen is serially sectioned. Life Educator section is submitted in cassette (A1). B. The specimen, labeled and designated "Javid, abscess cavity wall," is received in formalin and consists of three fragments of rubbery, jones soft tissue with attached yellow-jones fibroadipose tissue measuring in aggregate 3.3 x 3.3 x 1.4 cm. The fragments are serially sectioned. Life Educator sections are submitted in cassette (B1). C. The specimen, labeled and designated "Javid, right lower quadrant abscess tract," is received in formalin and consists of 3 fragments of rubbery jones soft tissue with attached yellow-jones fibroadipose tissue measuring in aggregate 4.9 x 3.5 x 1.8 cm. The larger fragment is serially sectioned. Life Educator sections are submitted in cassette (C1). D. The specimen, labeled and designated "Javid, left lower quadrant drain tract," is received in formalin and consists of a single fragment of rubbery, jones soft tissue with attached yellow-jones fibroadipose tissue measuring 6.5 x 2.7 x 2.0 cm. The specimen is serially sectioned. Life Educator sections are submitted in cassette (D1). E. The specimen, labeled and designated "Javid, right-sided wound tract #1," is received in formalin and consists of multiple fragments of rubbery, jones soft tissue with attached yellow-jones fibroadipose tissue measuring in aggregate 5.2 x 4.6 x 2.5 cm. The fragments are serially sectioned. Life Educator sections are submitted in cassettes (E1-E2). F. The specimen, labeled and designated "Javid, right-sided wound tract #2," is received in formalin and consists of two fragments of rubbery, jones soft tissue with attached yellow-jones fibroadipose tissue measuring in aggregate 5.0 x 3.8 x 1.5 cm. Both fragments are serially sectioned. Life Educator sections are submitted in cassette (F1). HH (under the direct supervision of a pathologist) The Gross Description was prepared using a voice recognition system. The report was reviewed for accuracy; however, sound-alike word errors, addition and/or PATIENT NAME: DAVID POTTS PATHOLOGY DATE OF : 57 REPORT #: [id number] PHYSICIAN: CHARLES BURT PCP: Tristan Carrera DO REPORT IS CONFIDENTIAL AND NOT TO BE RELEASED WITHOUT AUTHORIZATION [address] [address] Signed deletions may occur. If there is any question about this report, please contact Client Services. PERFORMING LABORATORY: The technical component was performed by [facility], [address] [place] [id number] (CLIA# [id number]). Professional interpretation was performed by [facility], [address] [place] [id number] (CLIA#: [id number]). Diagnostician: Manuel Cardoso MD Pathologist Electronically Signed 08/05/2022 Copies: ~ PATIENT NAME: DAVID POTTS PATHOLOGY DATE OF : 57 REPORT #: [id number] PHYSICIAN: [facility] PCP: Tristan Carrera DO REPORT IS CONFIDENTIAL AND NOT TO BE RELEASED WITHOUT AUTHORIZATION
--- NOTE | 2022-08-12 16:53 | OR ---
[facility] [address], [place] [address] Signed DATE OF OPERATION: 08/07/2022 SURGEON: Michael Pro MD PREOPERATIVE DIAGNOSES: 1. Enteric leak of small bowel (bile leak), recent laparotomy, segmental bowel resection, lysis of adhesions. 2. Distant history (March), subtotal colectomy with end ileostomy with subsequent segmental bowel resection with anastomosis. POSTOPERATIVE DIAGNOSIS: Discrete enteric leak of small bowel segment, ileum. PROCEDURES: 1. Exploration of the abdomen and peritoneal lavage, drainage of abdomen, adjustment of drains. 2. Repair of enteric leak and application of fibrin glue (Tisseel). ANESTHESIA: General endotracheal; Michael Mills CRNA INDICATIONS: This 66-year-old white man has a complex past medical history. He most recently on 08/04/2022, underwent laparotomy with resection of segment of bowel and presumed enteric leak with chronic abscess formation. Within 24 hours, he had previously appearing serosanguineous fluid drainage from pelvic and abdominal wall drains, leaking bilious fluid consistent with bile leak. Given the recent laparotomy, I have recommended exploration lavage and remedy of the enteric leak if at all possible. The risks of bleeding, infection, additional bowel problems, and so forth were reviewed with him in detail. He understands and wished to proceed. FINDINGS: As expected, inflammatory changes were noted in the subcutaneous space and the abdominal fascia itself. There was bile contamination of the intraabdominal contents. The site of bile leak was identified as a small bowel loop proximal to recent anastomosis by about 10-20 cm. The bowel itself was not ischemic in any way. The bowel itself was thickened as would be expected in this timeframe since operation. There were no other signs of enteric leak ischemic bowel or other issue. The enteric leak was repaired with a two-layer technique of running 3-0 Vicryl in the mucosal layer and interrupted 3-0 silk as well as application of fibrin glue. Electronically Signed By: MICHAEL PRO MD 08/12/22 1653 PATIENT NAME: DAVID POTTS OPERATIVE REPORT DATE OF : 57 REPORT #: [id number] PHYSICIAN: MICHAEL PRO MD PCP: Tristan Carrera DO REPORT IS CONFIDENTIAL AND NOT TO BE RELEASED WITHOUT AUTHORIZATION [facility] [address], [place] [address] Signed DESCRIPTION OF PROCEDURE: The patient was brought to the operating room, given a general endotracheal anesthetic. Three drains were remained in place showing enteric fluid drainage. Sellers catheter was already in place. Clips were removed from the midline incision. The abdomen was prepared with a Betadine solution after placement of a Sellers catheter into the end ileostomy. The subcutaneous tissue was divided bluntly and irrigation undertaken. The midline fascia, which had an inflammatory gummy consistency was opened after removing PDS suture. The abdomen was entered and examination showed small bowel loops matted together as would be expected and bile collection in the central lower abdomen. Meticulous care was taken to break down loculations of bowel loops and this was not difficult given the recent operation. Irrigation was undertaken. It became clear that the source of the enteric leak was a segment of small bowel which was at least 20 cm proximal to his recent anastomosis. The bowel, though thickened was absolutely completely and totally viable with no evidence of ischemia or other issue. The leak in the bowel was clearly the source of the problem. Irrigation was undertaken throughout the abdominal cavity, breaking down loculations and assuring that there was no gross contamination remaining. A consideration was made to not only repair the enteric leak, but consideration was also made for segmental bowel resection. The amount of bowel that would be resected would be somewhat prohibitive to get back to completely and totally normal bowel and given the clinical findings, repair of the enterotomy alone was deemed most appropriate and the circumstances. This was accomplished in a two-layer technique of running 3-0 Vicryl in the mucosal layer and interrupted 3-0 silk in the serosal layer. Application of aerosolized Tisseel (fibrin glue) additionally supported the repair. The bowel was replaced in an anatomic configuration. The drains were manipulated, one in the perirectal space pericolic gutter. Notably, there is no colon remaining in the rectal stump, but this serves as reasonable explanation of the location of the drains. The midline fascia was then reapproximated with running bidirectional #1 PDS suture with interrupted #1 PDS interrupted retention sutures in a Smead-Curry configuration. Subcutaneous tissue was further irrigated as were the previous drainage sites. The drains were allowed to remain to have their original bulb suction devices. Sellers catheter was removed from the ileostomy site and the ileostomy wafer affixed to the ileostomy site. The skin was closed with clips and an Acticoat dressing was applied. The patient was extubated without problem, taken to the recovery room in good condition, having suffered no complications. Sponge, needle, and instrument counts reported as correct x3. Electronically Signed By: MICHAEL PRO MD 08/12/22 1653 PATIENT NAME: DAVID POTTS TERESO OPERATIVE REPORT DATE OF : 57 REPORT #: [id number] PHYSICIAN: MICHAEL PRO MD PCP: Tristan Carrera DO REPORT IS CONFIDENTIAL AND NOT TO BE RELEASED WITHOUT AUTHORIZATION [address] [place], [place] [address] Signed MD ARIA Mane/BRIAN /[id number] cc: Tristan Carrera DO Copies: Tristan Carrera DO ~ Electronically Signed By: MICHAEL PRO MD 08/12/22 1653 PATIENT NAME: DAVID POTTS OPERATIVE REPORT DATE OF : 57 REPORT #: [id number] PHYSICIAN: MICHAEL PRO MD PCP: Tristan Carrera DO REPORT IS CONFIDENTIAL AND NOT TO BE RELEASED WITHOUT AUTHORIZATION
--- NOTE | 2022-08-13 08:32 | OR ---
[facility] [address], [place] [address] Signed DATE OF OPERATION: 08/04/2022 SURGEON: Michael Pro MD PREOPERATIVE DIAGNOSES: 1. Persistent intraabdominal abscess fluid drainage. 2. Recently dislodged drain, unintended, left abdomen. POSTOPERATIVE DIAGNOSES: 1. Persistent intraabdominal abscesses including left lower abdomen and pelvis with extensive adhesions. 2. 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 PROCEDURES: 1. Exploration of abdomen and blunt and sharp lysis of adhesions. 2. Peritoneal irrigation. 3. Segmental small bowel resection including end-to-end enteroenterostomy (area of probable persistent ongoing infection). 4. Explantation of infected mesh associated with bowel inflammatory focus. 5. Flexible cystoscopy with placement of latex free Sellers catheter (over the wire technique). 6. Core excision of persistent G-tube epithelialized site epigastric area. ANESTHESIA: General endotracheal; Iron Torres CRNA. INDICATIONS: This 66-year-old white male was recently admitted on 07/27/2022 having had dislodgement of abdominal drains which have been in place since laparotomy in March. He underwent on 07/29/2022 laparotomy, drainage of three separate intraabdominal abscesses, extensive lysis of adhesions and replacement of drains. He is being progressing nicely with good function of his ileostomy again, but a left-sided and suprapubic paracolic drain have began to drain purulent fluid again. The right sided abdominal drain is clear without signs of bile leak or other problem. He was anticipating discharge today when he went to shower and the left lower quadrant drain became dislodged. Given the essential nature of this drain and despite the vexing nature of such an occurrence, I have recommended exploration once again, replacement and draining irrigation as needed and other indicated procedures as appropriate. He Electronically Signed By: MICHAEL PRO MD 08/13/22 0832 PATIENT NAME: DAVID POTTS OPERATIVE REPORT DATE OF : 57 REPORT #: [id number] PHYSICIAN: MICHAEL PRO MD PCP: Tristan Carrera DO REPORT IS CONFIDENTIAL AND NOT TO BE RELEASED WITHOUT AUTHORIZATION [facility] [address], [place] [address] Signed understands the risks of bleeding, infection, fistulization, and other unforeseen complications and agrees to proceed. FINDINGS: Upon opening the abdomen now essentially a week since operation. Previous areas of dissection were easily broken up with interloop adhesions easily with blunt dissection. There was purulent material in the left side of the abdomen for which simple replacement in the drain was deemed unlikely to be beneficial long-term. On that basis, further exploration was undertaken ultimately identifying the offending area of small bowel which had a dense inflammatory adhesions and possible small fistulization. Quite notably, it was related to in part due to some mesh that had been implanted on a distant history of hernia repair, however, the mesh was associated with the bowel in the left lower quadrant was somewhat mysterious; it may have been mesh from the abdominal wall incorporated from omentum. Segmental bowel resection with end-to-end anastomosis was accomplished essentially excising the area persistent inflammatory and infectious process. Bowel loops were freed up throughout the abdomen. There is no remaining loops with leak or with obvious ongoing septic foci. There were interloop adhesions on the left side which contained small abscess areas. The fluid that was obtained that was clearly infected was Gram stain and found to have white cells and gram-positive cocci. At conclusion, thorough peritoneal irrigation has been undertaken. A drain left in the perirectal space (near the rectal stump) as well as the left lower abdomen where previous drainage was noted and along the right pericolic gutter area as well. It is recalled that he has had total colectomy and end ileostomy. The end ileostomy was well preserved. Additionally, the patient was not anticipated to have such a lengthy operation and therefore a Sellers catheter was placed at conclusion. It is recalled that he has had prostatic stricturing for which a cystoscopic over the wire placement of a Sellers catheter was required. DESCRIPTION OF PROCEDURE: The patient was brought to the operating room, given a general endotracheal anesthetic. Preoperative antibiotics have been ongoing. The patient was on Lovenox previously. Sequential compression device stockings were used. The bandages and ostomy appliance were removed. Good viability of the end-ileostomy was noted. Clips were removed from the incision with a hemostat. The abdomen was prepared with a Betadine based solution and Ioban applied to contain any ileostomy output. The previous midline incision was easily . There was inflammatory fluid within the depths of the subcutaneous tissue. The PDS suture securing the wound was released Electronically Signed By: MICHAEL PRO MD 08/13/22 0832 PATIENT NAME: DAVID POTTS OPERATIVE REPORT DATE OF : 57 REPORT #: [id number] PHYSICIAN: MICHAEL PRO MD PCP: Tristan Carrera DO REPORT IS CONFIDENTIAL AND NOT TO BE RELEASED WITHOUT AUTHORIZATION [address] [address] Signed allowing for entry into the abdominal cavity. There was noted particular on the left side. Opaque mucopurulent material has been noted in the drains. Small bowel loops which had previously been extensively dissected free a week previously were broken down with blunt dissection largely. A firm fibrotic cicatrix was noted associated with the small bowel in the left mid to lower abdomen. This area appeared to be the site of ongoing problems generally speaking. Meticulous dissection was undertaken with both blunt electrocautery dissection freeing of bowel loops in the left side of the abdomen, ultimately identifying an area of intense inflammatory change with associated mucopurulent fluid. This was Gram stained and cultured. Upon dissection, it appeared bowel loops may have had a limited fistulous opening in the area. Further dissection showed that there was a thin plastic like piece of mesh from prior hernia repair. How this ended up associated with this bowel loops down in the left lower abdomen is quite mysterious. It was associated with some omentum I suspect, it may have transposed its position during the course of previous operation initially. The bowel loops were freed with meticulous care, mindful of hazard for fistula formation and so on. Ultimately, the offending bowel loop and its attendant segment was freed up completely. It appeared the best approach of salvage would be resection. The mesentery corresponding to this 18 inches of mid small bowel was incised with electrocautery and the vascular pedicle secured with hemostats and ligated with 0 silk ties. A VENITA 80 mm stapler was used to transect the segment of bowel in clearly viable areas. An end-to-end enteroenterostomy was undertaken in a two-layer technique of interrupted 3-0 silk and interrupted 3-0 Vicryl. The mesenteric defect was secured with interrupted silk to avoid transmesenteric herniation. Irrigation was taken throughout the abdomen. Examination of the upper right side showed no sign of bile accumulation or other problem, only inflammatory changes. The dome of the liver could not really be palpated as it was obliterated by adhesions. The small bowel was returned to its natural anatomic configuration. The gastrostomy tube site in the subxiphoid area had persistent drainage. This area was cored out with electrocautery. The deep fascial layer reapproximated with interrupted 0 PDS suture. Attention was then turned towards the readjustment of drains. The two right-sided drains were reconfigured. The most lateral on the right extending upward in the right para-abdominal area and a suprapubic drain directed to the pararectal space. A new stab incision on the left side was made allowing for the Raúl drain to rest in the posterior peritoneal area (retroperitoneum) where previous dense cicatrix precluded thorough evaluation or treatment. Electronically Signed By: MICHAEL PRO MD 08/13/22 0832 PATIENT NAME: DAVID POTTS OPERATIVE REPORT DATE OF : 57 REPORT #: [id number] PHYSICIAN: MICHAEL PRO MD PCP: Tristan Carrera DO REPORT IS CONFIDENTIAL AND NOT TO BE RELEASED WITHOUT AUTHORIZATION [address] [address] Signed All drains were secured to skin with nylon suture. The midline fascia was reapproximated with running bidirectional #1 PDS suture with a few interrupted internal retentions of PDS. Subcutaneous tissue was copiously irrigated. The skin closed with a stapling device. An ostomy appliance was conformed to the ileostomy in the right side. The open wounds which were still healing were examined and plain gauze applied. Mindful of the unintended length of operation and with need for close urine monitoring. A Sellers catheter was deemed appropriate. It is recalled that he had a prostatic urethral stenosis that has previously required cystoscopy and over the wire placement of the Sellers catheter (latex-free). On that basis, this was performed. The penis was elevated in the glans prepared with a Betadine solution and under sterile technique, a flexible cystoscope passed down the urethra examining the urethral diameter. There was narrowing at the bladder urethral junction. The scope was passed in to the bladder itself. Flexible wire was passed down the channel of the scope. The scope was removed and a 16-Malian latex-free Sellers catheter with the tip caught off passed over the wire without problem securing the Sellers catheter within the bladder. The balloon was inflated and withdrawn and good urine output flow was noted. It was attached to a Sellers bag. An Acticoat dressing was applied to the midline incision. Gauze to the open wound is proper. He was ultimately extubated and transferred to recovery room in good condition having suffered no complication. Sponge, needle, and counts were correct x3. MD ARIA Mane/MODL /[id number] Electronically Signed By: MICHAEL PRO MD 08/13/22 0832 PATIENT NAME: DAVID POTTS OPERATIVE REPORT DATE OF : 57 REPORT #: [id number] PHYSICIAN: MICHAEL PRO MD PCP: Tristan Carrera DO REPORT IS CONFIDENTIAL AND NOT TO BE RELEASED WITHOUT AUTHORIZATION [facility] [address] [place] [address] [place], [place] [address] Signed Copies: ~ Electronically Signed By: MICHAEL PRO MD 08/13/22 0832 PATIENT NAME: DAVID POTTS OPERATIVE REPORT DATE OF : 57 REPORT #: [id number] PHYSICIAN: MICHAEL PRO MD PCP: Tristan Carrera DO REPORT IS CONFIDENTIAL AND NOT TO BE RELEASED WITHOUT AUTHORIZATION
[2022-08-14] MEDS ORDERED: LEVOFLOXACIN500 MG PO (10:46)
[2022-08-14] MEDS ORDERED: METRONIDAZOLE250 MG PO (10:47)
[2022-08-14] MEDS ORDERED: TAMSULOSIN HCL0.4 MG PO (10:47)
[2022-08-14] MEDS ORDERED: FLUCONAZOLE200 MG PO (10:47)
[2022-08-14] MEDS ORDERED: FUROSEMIDE20 MG PO (10:48)
[2022-08-14] MEDS ORDERED: ACETAMINOPHEN500 MG PO (10:48)
[2022-08-14] MEDS ORDERED: MULTI VITAMIN1 EACH PO (10:50)
[2022-08-14] MEDS ORDERED: LIDOCAINE PAIN1 EACH TD (10:51)
[2022-08-14] MEDS ORDERED: POTASSIUM CHLO20 ME1 PO (10:51)
[2022-08-14] MEDS ORDERED: ONDANSETRON ODT8 MG PO (10:54)
== END 2022-08-14 12:45 | disposition home or self-care (01) | DRG 856 ==
LOC: ED 11:11 → MS 11:13 → CCU 19:44 → MS 07-30 11:20
PROVIDERS: ADMIT Surgery; ATTEND Surgery
PROC: 0DQ90ZZ Repair Duodenum, Open Approach (ICD-10-PCS; 2022-07-29)
PROC: 0JB80ZZ Excision of Abdomen Subcutaneous Tissue and Fascia, Open Approach (ICD-10-PCS; principal; 2022-07-29 12:30)
PROC: 0DB80ZZ Excision of Small Intestine, Open Approach (ICD-10-PCS; 2022-08-04)
PROC: 0DC80ZZ Extirpation of Matter from Small Intestine, Open Approach (ICD-10-PCS; 2022-08-04)
PROC: 0W9J00Z Drainage of Pelvic Cavity with Drainage Device, Open Approach (ICD-10-PCS; 2022-08-07)
DX: T81.42XA Infection following a procedure, deep incisional surgical site, initial encounter (principal); K65.1 Peritoneal abscess; Z20.822 Contact with and (suspected) exposure to COVID-19; M10.9 Gout, unspecified; I10 Essential (primary) hypertension; K21.9 Gastro-esophageal reflux disease without esophagitis; N35.919 Unspecified urethral stricture, male, unspecified site; E11.22 Type 2 diabetes mellitus with diabetic chronic kidney disease; N18.30 Chronic kidney disease, stage 3 unspecified; I12.9 Hypertensive chronic kidney disease with stage 1 through stage 4 chronic kidney disease, or unspecified chronic kidney disease; J45.909 Unspecified asthma, uncomplicated; Z96.652 Presence of left artificial knee joint; Z96.612 Presence of left artificial shoulder joint; Z93.2 Ileostomy status; Z90.49 Acquired absence of other specified parts of digestive tract; Z98.890 Other specified postprocedural states; Z88.1 Allergy status to other antibiotic agents; Z88.8 Allergy status to other drugs, medicaments and biological substances; Z91.040 Latex allergy status; Z79.01 Long term (current) use of anticoagulants; Z79.899 Other long term (current) drug therapy; Y83.8 Other surgical procedures as the cause of abnormal reaction of the patient, or of later complication, without mention of misadventure at the time of the procedure
CPT/HCPCS: 00840; 36415; 74177; 76942; 80048; 80053; 83605; 83735; 85025; 85027; 86850; 86900; 86901; 86922; 87070; 87075; 87076; 87205; 87502; 93005; 93010; 96375; 99285-25; A9270; C9113; C9803; J0131; J0330; J0694; J1100; J1160; J1170; J1450; J1650; J1815; J1885; J1940; J1956; J2001; J2250; J2370; J2405; J2550; J2704; J2765; J2795; J3010; J3475; J7030; J7121; P9016; Q9967; U0003

== ENCOUNTER 2023-03-26 15:15 | Inpatient (IN) | payer OTHER, MEDICARE ==
[~2023-03-26] VITALS: Ht 172.7 cm; Wt 77.3 kg
--- OUTSIDE RECORDS SUMMARY | ~2023-03-26 | XMS | Continuity of Care Document ---
Demographics + + + | Address | [address] | | | [place] [address] | + + + | Preferred Language | Unknown | + + + | Marital Status | | + + + | Tenriism Affiliation | Unknown | + + + | Race | White | + + + | Ethnic Group | Not or | + + + Author + + + | Author | [facility] | + + + | Organization | [facility] | + + + | Address | [address] | | | [place] [address] | + + + | Phone | | + + + Care Team Providers + + + + | Care Service Associate Name | Role | Phone | + [...] + + + + + + | (no date) | Latex | [facility] | (no reaction) | (no severity) | | [facility] | | | + + + + + + | (no date) | latex | [facility] | (no reaction) | (no severity) | | [facility] | | | + + + + + + | (no date) | Metronidazole | [facility] | (no reaction) | (no severity) | | [facility] | | | + + + + + + | (no date) | Nausea | [facility] | (no reaction) | (no severity) | | | | [facility] | | | + + + + + + | (no date) | Flagyl | [facility] | (no reaction) | (no severity) | | | | [facility] | | | + + + + + + | (no date) | Mild | [facility] | (no reaction) | (no severity) | | | [facility] | | | + + + + + + | (no date) | Rash | [facility] | (no reaction) | (no severity) | | | [facility] | | | + + + + + + | (no date) | Lisinopril | [facility] | (no reaction) | (no severity) | | | [facility] | | | + + + + + + | (no date) | lisinopril | [facility] | (no reaction) | (no severity) | | | [facility] | | | + + + + + + | (no date) | Latex | [facility] | (no reaction) | (no severity) | | | [facility] | | | + + + + + + | (no date) | Benicar | [facility] | (no reaction) | (no severity) | | | | [facility] | | | + + + + + + | (no date) | Nausea | [facility] | (no reaction) | (no severity) | | | | [facility] | | | + + + + + + | (no date) | heparin | [facility] | (no reaction) | (no severity) | | | [facility] | | | + + + + + + | (no date) | Metronidazole | [facility] | (no reaction) | (no severity) | | | [facility] | | | + + + + + + | (no date) | metronidazole | [facility] | (no reaction) | (no severity) | | | [facility] | | | + + + + + + | (no date) | Benicar 20 MG | [facility] | (no reaction) | (no severity) | | | Oral Tablet | [facility] | | | + + + + + + | (no date) | Flagyl 250 MG | [facility] | (no reaction) | (no severity) | | | Oral Tablet | [facility] | | | + + + + + + | (no date) | Lisinopril | [facility] | (no reaction) | (no severity) | | | [facility] | | | + + + + + + | (no date) | lisinopril | [facility] | (no reaction) | (no severity) | + + + + + + | (no date) | latex | [facility] | (no reaction) | (no severity) | + + + + + + | (no date) | heparin | [facility] | (no reaction) | (no severity) | + + + + + + | (no date) | Lisinopril | [facility] | (no reaction) | (no severity) | | | Oral Tablet | [facility] | | | + + + + + + | (no date) | Latex | [facility] | (no reaction) | (no severity) | | | [facility] | | | + + + + + + Encounters No information. Functional Status No information. Immunizations + + + + | date | description | facility | + + + + | 2011-08-23 00:00 | Tdap | [facility] | | | | | + + + + | 2009-08-20 00:00 | zzH1N1 2009-(2 dose) | [facility] | | | | | + + + + | 2011-09-24 00:00 | zzH1N1 Influenza virus, | [facility] | | | adjuvanted, | | | | preservative-free, IM | | + + + + | 2012-06-07 00:00 | Influenza Seasonal | [facility] | | | (trivalent) | | + + + + | 2014-07-11 00:00 | Influenza Seasonal | [facility] | | | (trivalent) | | + + + + | 2014-08-06 00:00 | Influenza Seasonal | [facility] | | | (trivalent) | | + + + + | 2015-05-23 00:00 | Influenza Seasonal | [facility] | | | (trivalent) | | + + + + | 2016-06-25 00:00 | Influenza, seasonal, | [facility] | | | injectable | | + + + + | 2018-05-17 00:00 | FLUZONE SINGLE DOSE | [facility] | | | Quadrivalent | | + + + + | 2017-05-22 00:00 | Quadrivalent,Fluzone | [facility] | | | Preservative Free.5 | | + + + + | 2019-06-26 00:00 | Quadrivalent,Fluzone | [facility] | | | Preservative Free.5 | | + + + + | 2020-05-28 00:00 | Influenza, recombinant, | [facility] | | | quadrivalent,injectable, | | | | preservative free | | + + + + | 2017-07-21 00:00 | PPV (Pneumovax 23) | [facility] | | | | | + + + + | 2022-05-19 00:00 | No vaccine administered | [facility] | + + + + | 2022-07-15 00:00 | No vaccine administered | [facility] | + + + + | 2022-08-14 00:00 | No vaccine administered | [facility] | + + + + Medications + + + + | date | description | facility | + + + + | 2019-11-17 00:00 | Fluticasone Propionate 50 | [facility] | | | MCG/ACT Nasal Suspension | | + + + + | 2020-05-06 00:00 | Fluticasone Propionate 50 | [facility] | | | MCG/ACT Nasal Suspension | | + + + + | 2020-06-27 00:00 | Fluticasone Propionate 50 | [facility] | | | MCG/ACT Nasal Suspension | | + + + + | 2021-02-24 00:00 | Fluticasone Propionate 50 | [facility] | | | MCG/ACT Nasal Suspension | | + + + + | 2021-08-18 00:00 | Fluticasone Propionate 50 | [facility] | | | MCG/ACT Nasal Suspension | | + + + + | 2021-09-22 00:00 | Fluticasone Propionate 50 | [facility] | | | MCG/ACT Nasal Suspension | | + + + + | 2022-03-02 00:00 | Fluticasone Propionate 50 | [facility] | | | MCG/ACT Nasal Suspension | | + + + + | 2016-01-16 00:00 | Fluticasone Propionate 50 | [facility] | | | MCG/ACT Suspension | | + + + + | 2018-05-15 00:00 | Fluticasone Propionate | [facility] | | | 50MCG/ACT Nasal Suspension | | + + + + | 2019-01-15 00:00 | Fluticasone Propionate | [facility] | | | 50MCG/ACT Nasal Suspension | | + + + + | 2022-07-15 00:00 | FAMOTIDINE | [facility] | + + + + | 2022-07-15 00:00 | famotidine 20 MG Oral | [facility] | | | Tablet [Pepcid] | | + + + + | 2022-08-14 00:00 | famotidine 20 MG Oral | [facility] | | | Tablet [Pepcid] | | + + + + | 2022-05-05 00:00 | OXYCODONE | [facility] | | | HCL/ACETAMINOPHEN | | + + + + | 2022-05-19 00:00 | OXYCODONE | [facility] | | | HCL/ACETAMINOPHEN | | + + + + | 2022-05-19 00:00 | OXYCODONE | [facility] | | | HCL/ACETAMINOPHEN | | + + + + | 2022-06-11 00:00 | OXYCODONE | [facility] | | | HCL/ACETAMINOPHEN | | + + + + | 2022-07-15 00:00 | OXYCODONE | [facility] | | | HCL/ACETAMINOPHEN | | + + + + | 2022-05-05 00:00 | acetaminophen 325 MG / | [facility] | | | oxycodone hydrochloride 7.5 | | | | MG Oral T | | + + + + | 2022-05-19 00:00 | acetaminophen 325 MG / | [facility] | | | oxycodone hydrochloride 7.5 | | | | MG Oral T | | + + + + | 2022-07-15 00:00 | acetaminophen 325 MG / | [facility] | | | oxycodone hydrochloride 7.5 | | | | MG Oral T | | + + + + | 2022-06-30 00:00 | acetaminophen 325 MG / | [facility] | | | oxycodone hydrochloride 7.5 | | | | MG Oral Tablet | | + + + + | 2022-07-15 00:00 | OXYCODONE | [facility] | | | HCL/ACETAMINOPHEN | | + + + + | 2022-07-15 00:00 | acetaminophen 325 MG / | [facility] | | | oxycodone hydrochloride 7.5 | | | | MG Oral T | | + + + + | 2022-05-29 00:00 | Olopatadine HCl | [facility] | + + + + | 2022-06-05 00:00 | Olopatadine HCl | [facility] | + + + + | 2022-06-11 00:00 | Olopatadine HCl | [facility] | + + + + | 2022-05-19 00:00 | olopatadine 1 MG/ML | [facility] | | | Ophthalmic Solution | | + + + + | 2015-06-24 00:00 | Keflex 500 MG Capsule, | [facility] | | | conventional | | + + + + | 2014-06-15 00:00 | Willie HFA 108 (90 Base) | [facility] | | | MCG/ACT IN AERS | | + + + + | 2022-06-05 00:00 | APIXABAN | [facility] | + + + + | 2022-06-05 00:00 | APIXABAN | [facility] | + + + + | 2022-06-11 00:00 | APIXABAN | [facility] | + + + + | 2022-07-15 00:00 | APIXABAN | [facility] | + + + + | 2022-06-05 00:00 | apixaban 5 MG Oral Tablet | [facility] | | | [Eliquis] | | + + + + | 2022-07-15 00:00 | apixaban 5 MG Oral Tablet | [facility] | | | [Eliquis] | | + + + + | 2022-07-17 00:00 | apixaban 5 MG Oral Tablet | [facility] | | | [Eliquis] | | + + + + | 2022-08-14 00:00 | apixaban 5 MG Oral Tablet | [facility] | | | [Eliquis] | | + + + + | 2022-10-26 00:00 | apixaban 5 MG Oral Tablet | [facility] | | | [Eliquis] | | + + + + | 2014-05-29 00:00 | Minocycline HCl 100 MG OR | [facility] | | | TABS | | + + + + | 2014-05-29 00:00 | ReliOn Mini Pen Cheraw | [facility] | | | 31G X 6 MM MISC | | + + + + | 2018-04-20 00:00 | ReliOn Mini Pen Cheraw | [facility] | | | 31G X 6 MM Miscellaneous | | | | (not specified) | | + + + + | 2015-11-27 00:00 | ReliOn Mini Pen Cheraw | [facility] | | | 31G X 6 MM Miscellaneous | | + + + + | 2016-07-21 00:00 | ReliOn Mini Pen Cheraw | [facility] | | | 31G X 6 MM Miscellaneous | | + + + + | 2014-05-29 00:00 | Nitroglycerin 0.4 MG SL | [facility] | | | SUBL | | + + + + | 2014-05-30 00:00 | Nitroglycerin 0.4 MG SL | [facility] | | | SUBL | | + + + + | 2022-10-27 00:00 | Flomax 0.4 MG Oral Capsule | [facility] | | | | | + + + + | 2014-05-29 00:00 | [facility] Vitamin D3 1000 UNIT | [facility] | | | OR CAPS | | + + + + | 2014-05-29 00:00 | Niharika Allergy 180 MG OR | [facility] | | | TABS | | + + + + | 2022-07-15 00:00 | DOXYCYCLINE HYCLATE | [facility] | + + + + | 2022-07-15 00:00 | doxycycline hyclate 100 MG | [facility] | | | Oral Capsule | | + + + + | 2015-06-17 00:00 | doxycycline hyclate 100 MG | [facility] | | | Oral Tablet | | + + + + | 2016-01-16 00:00 | doxycycline hyclate 100 MG | [facility] | | | Oral Tablet | | + + + + | 2016-06-26 00:00 | doxycycline hyclate 100 MG | [facility] | | | Oral Tablet | | + + + + | 2017-11-24 00:00 | doxycycline hyclate 100 MG | [facility] | | | Oral Tablet | | + + + + | 2015-02-26 00:00 | Accu-Chek FastClix Lancets | [facility] | | | Miscellaneous (not | | | | specified) | | + + + + | 2016-05-04 00:00 | Accu-Chek FastClix Lancets | [facility] | | | Miscellaneous (not | | | | specified) | | + + + + | 2017-04-05 00:00 | Accu-Chek FastClix Lancets | [facility] | | | Miscellaneous | | + + + + | 2018-03-04 00:00 | Accu-Chek FastClix Lancets | [facility] | | | Miscellaneous | | + + + + | 2022-09-28 00:00 | Accu-Chek FastClix Lancets | [facility] | | | Miscellaneous | | + + + + | 2014-05-29 00:00 | Buffered Vitamin C 1000 MG | [facility] | | | OR CAPS | | + + + + | 2017-05-28 00:00 | Accu-Chek Kailee Plus In | [facility] | | | Vitro Strip | | + + + + | 2017-12-21 00:00 | Accu-Chek Kailee Plus In | [facility] | | | Vitro Strip | | + + + + | 2018-03-02 00:00 | Accu-Chek Kailee Plus In | [facility] | | | Vitro Strip | | + + + + | 2019-03-26 00:00 | Accu-Chek Kailee Plus In | [facility] | | | Vitro Strip | | + + + + | 2022-09-28 00:00 | Accu-Chek Kailee Plus In | [facility] | | | Vitro Strip | | + + + + | 2015-11-06 00:00 | Accu-Chek Kailee Plus Strip | [facility] | | | | | + + + + | 2016-12-01 00:00 | Accu-Chek Kailee Plus Strip | [facility] | | | | | + + + + | 2017-02-18 00:00 | Accu-Chek Kailee Plus Strip | [facility] | | | | | + + + + | 2014-10-29 00:00 | Accu-Chek Kailee Plus | [facility] | | | STRP | | + + + + | 2019-07-17 00:00 | Accu-Kinnekk FastClix Lancet | [facility] | | | Kit | | + + + + | 2021-06-09 00:00 | Accu-Chek FastClix Lancet | [facility] | | | Kit | | + + + + | 2022-08-14 00:00 | lidocaine 0.04 MG/MG | [facility] | | | Medicated Patch | | + + + + | 2022-07-17 00:00 | Eliquis 5 MG Oral Tablet | [facility] | | | | | + + + + | 2022-10-26 00:00 | Eliquis 5 MG Oral Tablet | [facility] | | | | | + + + + | 2017-12-29 00:00 | Sodium Sulfacetamide Wash | [facility] | | | 10% External Liquid | | + + + + | 2021-12-08 00:00 | Sodium Sulfacetamide Wash | [facility] | | | 10% External Liquid | | + + + + | 2022-07-02 00:00 | Promethazine HCl 25 MG | [facility] | | | Oral Tablet | | + + + + | 2015-06-21 00:00 | Promethazine-Codeine | [facility] | | | 6.25-10 MG/5ML Syrup | | + + + + | 2022-05-29 00:00 | FLUTICASONE PROPIONATE 50 | [facility] | | | MCG | | + + + + | 2022-06-05 00:00 | FLUTICASONE PROPIONATE 50 | [facility] | | | MCG | | + + + + | 2022-06-11 00:00 | FLUTICASONE PROPIONATE 50 | [facility] | | | MCG | | + + + + | 2022-07-15 00:00 | FLUTICASONE PROPIONATE 50 | [facility] | | | MCG | | + + + + | 2022-05-19 00:00 | fluticasone propionate | [facility] | | | 0.05 MG/ACTUAT Metered Dose | | | | Nasal Spr | | + + + + | 2022-07-15 00:00 | fluticasone propionate | [facility] | | | 0.05 MG/ACTUAT Metered Dose | | | | Nasal Spr | | + + + + | 2022-08-14 00:00 | fluticasone propionate | [facility] | | | 0.05 MG/ACTUAT Metered Dose | | | | Nasal Spr | | + + + + | 2016-01-16 00:00 | fluticasone propionate | [facility] | | | 0.05 MG/ACTUAT Metered Dose | | | | Nasal [place] | | + + + + | 2018-05-15 00:00 | fluticasone propionate | [facility] | | | 0.05 MG/ACTUAT Metered Dose | | | | Nasal [place] | | + + + + | 2019-01-15 00:00 | fluticasone propionate | [facility] | | | 0.05 MG/ACTUAT Metered Dose | | | | Nasal [place] | | + + + + | 2019-11-17 00:00 | fluticasone propionate | [facility] | | | 0.05 MG/ACTUAT Metered Dose | | | | Nasal [place] | | + + + + | 2020-05-06 00:00 | fluticasone propionate | [facility] | | | 0.05 MG/ACTUAT Metered Dose | | | | Nasal [place] | | + + + + | 2020-06-27 00:00 | fluticasone propionate | [facility] | | | 0.05 MG/ACTUAT Metered Dose | | | | Nasal [place] | | + + + + | 2021-02-24 00:00 | fluticasone propionate | [facility] | | | 0.05 MG/ACTUAT Metered Dose | | | | Nasal [place] | | + + + + | 2021-08-18 00:00 | fluticasone propionate | [facility] | | | 0.05 MG/ACTUAT Metered Dose | | | | Nasal [place] | | + + + + | 2021-09-22 00:00 | fluticasone propionate | [facility] | | | 0.05 MG/ACTUAT Metered Dose | | | | Nasal [place] | | + + + + | 2022-03-02 00:00 | fluticasone propionate | [facility] | | | 0.05 MG/ACTUAT Metered Dose | | | | Nasal [place] | | + + + + | 2014-10-22 00:00 | fluticasone propionate | [facility] | | | 0.05 MG/ACTUAT Metered Dose | | | | Nasal [place] [Flonase] | | + + + + | 2015-02-04 00:00 | fluticasone propionate | [facility] | | | 0.05 MG/ACTUAT Metered Dose | | | | Nasal [place] [Flonase] | | + + + + | 2015-04-08 00:00 | fluticasone propionate | [facility] | | | 0.05 MG/ACTUAT Metered Dose | | | | Nasal [place] [Flonase] | | + + + + | 2016-02-17 00:00 | fluticasone propionate | [facility] | | | 0.05 MG/ACTUAT Metered Dose | | | | Nasal [place] [Flonase] | | + + + + | 2016-11-05 00:00 | fluticasone propionate | [facility] | | | 0.05 MG/ACTUAT Metered Dose | | | | Nasal [place] [Flonase] | | + + + + | 2017-07-12 00:00 | fluticasone propionate | [facility] | | | 0.05 MG/ACTUAT Metered Dose | | | | Nasal [place] [Flonase] | | + + + + | 2018-04-06 00:00 | fluticasone propionate | [facility] | | | 0.05 MG/ACTUAT Metered Dose | | | | Nasal [place] [Flonase] | | + + + + | 2022-08-14 00:00 | Microencapsulated | [facility] | | | potassium chloride 20 MEQ | | | | Extended Release | | + + + + | 2018-07-28 00:00 | Levemir FlexTouch 100 | [facility] | | | UNIT/ML SC SOPN | | + + + + | 2015-11-25 00:00 | Levemir FlexTouch 100 | [facility] | | | UNIT/ML Solution | | | | Pen-injector | | + + + + | 2016-07-14 00:00 | Levemir FlexTouch 100 | [facility] | | | UNIT/ML Solution | | | | Pen-injector | | + + + + | 2017-01-25 00:00 | Levemir FlexTouch 100 | [facility] | | | UNIT/ML Solution | | | | Pen-injector | | + + + + | 2019-07-14 00:00 | Levemir FlexTouch 100 | [facility] | | | UNIT/ML Subcutaneous | | | | Solution Pen-injector | | + + + + | 2020-10-28 00:00 | Levemir FlexTouch 100 | [facility] | | | UNIT/ML Subcutaneous | | | | Solution Pen-injector | | + + + + | 2017-06-14 00:00 | Levemir FlexTouch | [facility] | | | 100UNIT/ML Subcutaneous | | | | Solution Pen-injector | | + + + + | 2018-01-04 00:00 | Levemir FlexTouch | [facility] | | | 100UNIT/ML Subcutaneous | | | | Solution Pen-injector | | + + + + | 2019-01-05 00:00 | Levemir FlexTouch | [facility] | | | 100UNIT/ML Subcutaneous | | | | Solution Pen-injector | | + + + + | 2018-04-06 00:00 | Flonase Allergy Relief | [facility] | | | 50MCG/ACT Nasal Suspension | | + + + + | 2019-06-09 00:00 | [facility] Fluticasone Propionate | [facility] | | | 50 MCG/ACT Nasal | | | | Suspension | | + + + + | 2017-03-05 00:00 | ReliOn Pen Cheraw 31G X 6 | [facility] | | | MM Miscellaneous | | + + + + | 2019-01-20 00:00 | ReliOn Pen Cheraw 31G X 6 | [facility] | | | MM Miscellaneous | | + + + + | 2022-05-29 00:00 | ALLOPURINOL | [facility] | + + + + | 2022-06-05 00:00 | ALLOPURINOL | [facility] | + + + + | 2022-06-11 00:00 | ALLOPURINOL | [facility] | + + + + | 2022-07-15 00:00 | ALLOPURINOL | [facility] | + + + + | 2014-05-29 00:00 | allopurinol 300 MG Oral | [facility] | | | Tablet | | + + + + | 2022-05-19 00:00 | allopurinol 300 MG Oral | [facility] | | | Tablet | | + + + + | 2022-07-15 00:00 | allopurinol 300 MG Oral | [facility] | | | Tablet | | + + + + | 2022-08-14 00:00 | allopurinol 300 MG Oral | [facility] | | | Tablet | | + + + + | 2022-05-29 00:00 | AMLODIPINE BESYLATE | [facility] | + + + + | 2022-06-05 00:00 | AMLODIPINE BESYLATE | [facility] | + + + + | 2022-06-11 00:00 | AMLODIPINE BESYLATE | [facility] | + + + + | 2022-07-15 00:00 | AMLODIPINE BESYLATE | [facility] | + + + + | 2018-07-28 00:00 | amlodipine 5 MG Oral | [facility] | | | Tablet | | + + + + | 2019-01-05 00:00 | amlodipine 5 MG Oral | [facility] | | | Tablet | | + + + + | 2020-01-22 00:00 | amlodipine 5 MG Oral | [facility] | | | Tablet | | + + + + | 2020-11-04 00:00 | amlodipine 5 MG Oral | [facility] | | | Tablet | | + + + + | 2022-02-02 00:00 | amlodipine 5 MG Oral | [facility] | | | Tablet | | + + + + | 2022-05-19 00:00 | amlodipine 5 MG Oral | [facility] | | | Tablet | | + + + + | 2022-07-15 00:00 | amlodipine 5 MG Oral | [facility] | | | Tablet | | + + + + | 2022-08-14 00:00 | amlodipine 5 MG Oral | [facility] | | | Tablet | | + + + + | 2022-05-05 00:00 | FLUCONAZOLE | [facility] | + + + + | 2022-05-19 00:00 | FLUCONAZOLE | [facility] | + + + + | 2022-05-05 00:00 | fluconazole 200 MG Oral | [facility] | | | Tablet | | + + + + | 2022-05-19 00:00 | fluconazole 200 MG Oral | [facility] | | | Tablet | | + + + + | 2022-08-14 00:00 | fluconazole 200 MG Oral | [facility] | | | Tablet | | + + + + | 2022-05-29 00:00 | INDAPAMIDE | [facility] | + + + + | 2022-06-05 00:00 | INDAPAMIDE | [facility] | + + + + | 2022-06-11 00:00 | INDAPAMIDE | [facility] | + + + + | 2022-07-15 00:00 | INDAPAMIDE | [facility] | + + + + | 2021-09-08 00:00 | indapamide 1.25 MG Oral | [facility] | | | Tablet | | + + + + | 2022-05-19 00:00 | indapamide 1.25 MG Oral | [facility] | | | Tablet | | + + + + | 2022-07-15 00:00 | indapamide 1.25 MG Oral | [facility] | | | Tablet | | + + + + | 2022-08-14 00:00 | indapamide 1.25 MG Oral | [facility] | | | Tablet | | + + + + | 2014-05-29 00:00 | nitroglycerin 0.4 MG | [facility] | | | Sublingual Tablet | | + + + + | 2014-05-30 00:00 | nitroglycerin 0.4 MG | [facility] | | | Sublingual Tablet | | + + + + | 2022-09-14 00:00 | sulfamethoxazole 800 MG / | [facility] | | | trimethoprim 160 MG Oral | | | | Tablet | | + + + + | 2018-07-04 00:00 | torsemide 5 MG Oral Tablet | [facility] | | | | | + + + + | 2022-07-15 00:00 | ACETAMINOPHEN | [facility] | + + + + | 2022-07-15 00:00 | acetaminophen 500 MG Oral | [facility] | | | Tablet | | + + + + | 2022-08-14 00:00 | acetaminophen 500 MG Oral | [facility] | | | Tablet | | + + + + | 2022-08-14 00:00 | magnesium oxide 400 MG | [facility] | | | Oral Tablet | | + + + + | 2022-05-19 00:00 | 0.25 MG, 0.5 MG Dose 1.5 | [facility] | | | ML semaglutide 1.34 MG/ML | | | | Pen Injec | | + + + + | 2022-07-15 00:00 | 0.25 MG, 0.5 MG Dose 1.5 | [facility] | | | ML semaglutide 1.34 MG/ML | | | | Pen Injec | | + + + + | 2022-08-14 00:00 | 0.25 MG, 0.5 MG Dose 1.5 | [facility] | | | ML semaglutide 1.34 MG/ML | | | | Pen Injec | | + + + + | 2021-09-08 00:00 | 0.25 MG, 0.5 MG Dose 1.5 | [facility] | | | ML semaglutide 1.34 MG/ML | | | | Pen Injector [Ozempic] | | + + + + | 2022-05-29 00:00 | Semaglutide | [facility] | + + + + | 2022-06-05 00:00 | Semaglutide | [facility] | + + + + | 2022-06-11 00:00 | Semaglutide | [facility] | + + + + | 2022-07-15 00:00 | Semaglutide | [facility] | + + + + | 2022-05-19 00:00 | MELATONIN | [facility] | + + + + | 2022-05-19 00:00 | MELATONIN | [facility] | + + + + | 2022-05-19 00:00 | melatonin 3 MG Oral Tablet | [facility] | | | | | + + + + | 2018-07-28 00:00 | LuxStyle Britta Sensor | [facility] | | | System MISC | | + + + + | 2022-05-05 00:00 | LEVOFLOXACIN | [facility] | + + + + | 2022-05-19 00:00 | LEVOFLOXACIN | [facility] | + + + + | 2022-05-19 00:00 | LEVOFLOXACIN | [facility] | + + + + | 2022-05-05 00:00 | levofloxacin 500 MG Oral | [facility] | | | Tablet | | + + + + | 2022-05-19 00:00 | levofloxacin 500 MG Oral | [facility] | | | Tablet | | + + + + | 2022-08-14 00:00 | levofloxacin 500 MG Oral | [facility] | | | Tablet | | + + + + | 2018-07-28 00:00 | LuxStyle Britta [place] | [facility] | | | DELMIS | | + + + + | 2021-09-08 00:00 | Ozempic (0.25 or 0.5 | [facility] | | | MG/DOSE) 2 MG/1.5ML | | | | Subcutaneous Solution | | | | Pen-injector | | + + + + | 2014-05-29 00:00 | Spironolactone 25 MG OR | [facility] | | | TABS | | + + + + | 2021-09-08 00:00 | Spironolactone 25 MG Oral | [facility] | | | Tablet | | + + + + | 2015-02-28 00:00 | Spironolactone 25 MG | [facility] | | | Tablet | | + + + + | 2020-05-06 00:00 | FreeStyle Britta 14 Day | [facility] | | | Sensor MISC | | + + + + | 2021-03-12 00:00 | FreeStyle Britta 14 Day | [facility] | | | Sensor Miscellaneous (not | | | | specified) | | + + + + | 2021-03-14 00:00 | FreeStyle Britta 14 Day | [facility] | | | Sensor Miscellaneous (not | | | | specified) | | + + + + | 2019-08-07 00:00 | FreeStyle Britta 14 Day | [facility] | | | Sensor Miscellaneous | | + + + + | 2020-01-22 00:00 | FreeStyle Britta 14 Day | [facility] | | | Sensor Miscellaneous | | + + + + | 2020-05-06 00:00 | FreeStyle Britta 14 Day | [facility] | | | Sensor Miscellaneous | | + + + + | 2020-07-01 00:00 | FreeStyle Britta 14 Day | [facility] | | | Sensor Miscellaneous | | + + + + | 2020-11-25 00:00 | FreeStyle Britta 14 Day | [facility] | | | Sensor Miscellaneous | | + + + + | 2021-03-31 00:00 | FreeStyle Britta 14 Day | [facility] | | | Sensor Miscellaneous | | + + + + | 2021-05-04 00:00 | FreeStyle Britta 14 Day | [facility] | | | Sensor Miscellaneous | | + + + + | 2021-06-19 00:00 | FreeStyle Britta 14 Day | [facility] | | | Sensor Miscellaneous | | + + + + | 2017-12-29 00:00 | desonide 0.0005 MG/MG | [facility] | | | Topical Ointment | | + + + + | 2015-11-04 00:00 | ciprofloxacin 500 MG Oral | [facility] | | | Tablet [Cipro] | | + + + + | 2015-11-04 00:00 | hydrocortisone 10 MG/ML / | [facility] | | | neomycin 3.5 MG/ML / | | | | polymyxin B 08333 UNT/ML | | | | Otic Solution [Cortisporin] | | + + + + | 2021-09-08 00:00 | loratadine 10 MG Oral | [facility] | | | Tablet [Claritin] | | + + + + | 2014-05-29 00:00 | minocycline 100 MG Oral | [facility] | | | Tablet | | + + + + | 2022-10-27 00:00 | One-A-Day Mens 50+ Oral | [facility] | | | Tablet | | + + + + | 2022-10-27 00:00 | Salonpas Pain Relief Patch | [facility] | | | External | | + + + + | 2015-06-24 00:00 | cephalexin 500 MG Oral | [facility] | | | Capsule [Keflex] | | + + + + | 2022-07-02 00:00 | Voltaren 1% External Gel | [facility] | | | | | + + + + | 2014-05-29 00:00 | metronidazole 10 MG/ML | [facility] | | | Topical Cream [Noritate] | | + + + + | 2014-05-29 00:00 | sildenafil 50 MG Oral | [facility] | | | Tablet [Viagra] | | + + + + | 2021-06-09 00:00 | FreeStyle Britta 2 Sensor | [facility] | | | Miscellaneous | | + + + + | 2021-09-11 00:00 | FreeStyle Britta 2 Sensor | [facility]. | | | Miscellaneous | | + + + + | 2021-11-17 00:00 | FreeStyle Britta 2 Sensor | [facility] | | | Miscellaneous | | + + + + | 2021-06-09 00:00 | FreeStyle Britta 2 [place] | [facility] | | | Device | | + + + + | 2022-07-02 00:00 | Semaglutide-Weight | [facility] | | | Management 0.5 MG/0.5ML | | | | Subcutaneous Solution | | | | Auto-injector | | + + + + | 2014-05-29 00:00 | Triamterene-HCTZ 75-50 MG | [facility] | | | OR TABS | | + + + + | 2017-06-11 00:00 | Tylenol with Codeine #3 | [facility] | | | 300-30MG Oral Tablet | | + + + + | 2014-05-29 00:00 | azithromycin 500 MG Oral | [facility] | | | Tablet [Zithromax] | | + + + + | 2018-07-28 00:00 | AmLODIPine Besylate 5MG | [facility] | | | Oral Tablet | | + + + + | 2020-01-22 00:00 | amLODIPine Besylate 5 MG | [facility] | | | Oral Tablet | | + + + + | 2020-11-04 00:00 | amLODIPine Besylate 5 MG | [facility] | | | Oral Tablet | | + + + + | 2022-02-02 00:00 | amLODIPine Besylate 5 MG | [facility] | | | Oral Tablet | | + + + + | 2019-01-05 00:00 | amLODIPine Besylate 5MG | [facility] | | | Oral Tablet | | + + + + | 2022-07-02 00:00 | melatonin 5 MG Oral Tablet | [facility] | | | | | + + + + | 2017-12-29 00:00 | Desonide 0.05% External | [facility] | | | Ointment | | + + + + | 2022-10-27 00:00 | Famotidine 20 MG Oral | [facility] | | | Tablet | | + + + + | 2014-05-29 00:00 | Fluticasone Propionate | [facility] | | | 0.05% EX CREA | | + + + + | 2021-09-08 00:00 | Indapamide 1.25 MG Oral | [facility] | | | Tablet | | + + + + | 2022-07-15 00:00 | CLINDAMYCIN HCL | [facility] | + + + + | 2022-07-15 00:00 | clindamycin 300 MG Oral | [facility] | | | Capsule | | + + + + | 2022-08-14 00:00 | clindamycin 300 MG Oral | [facility] | | | Capsule | | + + + + | 2022-07-02 00:00 | Magnesium Oxide 400 MG | [facility] | | | Oral Tablet | | + + + + | 2017-01-08 00:00 | amoxicillin 500 MG Oral | [facility] | | | Tablet | | + + + + | 2014-05-29 00:00 | Simvastatin 20 MG OR TABS | [facility] | | | | | + + + + | 2014-08-27 00:00 | Simvastatin 20 MG OR TABS | [facility] | | | | | + + + + | 2020-02-21 00:00 | Simvastatin 20 MG Oral | [facility] | | | Tablet | | + + + + | 2021-04-07 00:00 | Simvastatin 20 MG Oral | [facility] | | | Tablet | | + + + + | 2022-07-01 00:00 | Simvastatin 20 MG Oral | [facility] | | | Tablet | | + + + + | 2015-04-01 00:00 | Simvastatin 20 MG Tablet | [facility] | | | | | + + + + | 2015-04-30 00:00 | Simvastatin 20 MG Tablet | [facility] | | | | | + + + + | 2015-12-16 00:00 | Simvastatin 20 MG Tablet | [facility] | | | | | + + + + | 2016-12-07 00:00 | Simvastatin 20 MG Tablet | [facility] | | | | | + + + + | 2017-05-31 00:00 | Simvastatin 20MG Oral | [facility] | | | Tablet | | + + + + | 2018-06-21 00:00 | Simvastatin 20MG Oral | [facility] | | | Tablet | | + + + + | 2019-01-05 00:00 | Simvastatin 20MG Oral | [facility] | | | Tablet | | + + + + | 2018-09-28 00:00 | azithromycin 250 MG Oral | [facility] | | | Tablet | | + + + + | 2022-07-15 00:00 | FAMOTIDINE | [facility] | + + + + | 2022-07-15 00:00 | famotidine 20 MG Oral | [facility] | | | Tablet | | + + + + | 2022-10-27 00:00 | famotidine 20 MG Oral | [facility] | | | Tablet | | + + + + | 2022-05-05 00:00 | Ferrous Sulfate | [facility] | + + + + | 2022-05-19 00:00 | Ferrous Sulfate | [facility] | + + + + | 2022-05-19 00:00 | Ferrous Sulfate | [facility] | + + + + | 2022-06-11 00:00 | Ferrous Sulfate | [facility] | + + + + | 2014-05-29 00:00 | ferrous sulfate 325 MG | [facility] | | | Oral Tablet | | + + + + | 2022-05-05 00:00 | ferrous sulfate 325 MG | [facility] | | | Oral Tablet | | + + + + | 2022-05-19 00:00 | ferrous sulfate 325 MG | [facility] | | | Oral Tablet | | + + + + | 2022-07-02 00:00 | ferrous sulfate 325 MG | [facility] | | | Oral Tablet | | + + + + | 2022-08-14 00:00 | furosemide 20 MG Oral | [facility] | | | Tablet | | + + + + | 2014-05-29 00:00 | hydrochlorothiazide 50 MG | [facility] | | | / triamterene 75 MG Oral | | | | Tablet | | + + + + | 2022-08-14 00:00 | ondansetron 8 MG | [facility] | | | Disintegrating Oral Tablet | | + + + + | 2022-05-29 00:00 | SIMVASTATIN | [facility] | + + + + | 2022-06-05 00:00 | SIMVASTATIN | [facility] | + + + + | 2022-06-11 00:00 | SIMVASTATIN | [facility] | + + + + | 2022-07-15 00:00 | SIMVASTATIN | [facility] | + + + + | 2014-05-29 00:00 | simvastatin 20 MG Oral | [facility] | | | Tablet | | + + + + | 2014-08-27 00:00 | simvastatin 20 MG Oral | [facility] | | | Tablet | | + + + + | 2015-04-01 00:00 | simvastatin 20 MG Oral | [facility] | | | Tablet | | + + + + | 2015-04-30 00:00 | simvastatin 20 MG Oral | [facility] | | | Tablet | | + + + + | 2015-12-16 00:00 | simvastatin 20 MG Oral | [facility] | | | Tablet | | + + + + | 2016-12-07 00:00 | simvastatin 20 MG Oral | [facility] | | | Tablet | | + + + + | 2017-05-31 00:00 | simvastatin 20 MG Oral | [facility] | | | Tablet | | + + + + | 2018-06-21 00:00 | simvastatin 20 MG Oral | [facility] | | | Tablet | | + + + + | 2019-01-05 00:00 | simvastatin 20 MG Oral | [facility] | | | Tablet | | + + + + | 2020-02-21 00:00 | simvastatin 20 MG Oral | [facility] | | | Tablet | | + + + + | 2021-04-07 00:00 | simvastatin 20 MG Oral | [facility] | | | Tablet | | + + + + | 2022-05-19 00:00 | simvastatin 20 MG Oral | [facility] | | | Tablet | | + + + + | 2022-07-01 00:00 | simvastatin 20 MG Oral | [facility] | | | Tablet | | + + + + | 2022-07-15 00:00 | simvastatin 20 MG Oral | [facility] | | | Tablet | | + + + + | 2022-08-14 00:00 | simvastatin 20 MG Oral | [facility] | | | Tablet | | + + + + | 2022-05-29 00:00 | SPIRONOLACTONE | [facility] | + + + + | 2022-06-05 00:00 | SPIRONOLACTONE | [facility] | + + + + | 2022-06-11 00:00 | SPIRONOLACTONE | [facility] | + + + + | 2022-07-15 00:00 | SPIRONOLACTONE | [facility] | + + + + | 2014-05-29 00:00 | spironolactone 25 MG Oral | [facility] | | | Tablet | | + + + + | 2015-02-28 00:00 | spironolactone 25 MG Oral | [facility] | | | Tablet | | + + + + | 2021-09-08 00:00 | spironolactone 25 MG Oral | [facility] | | | Tablet | | + + + + | 2022-05-19 00:00 | spironolactone 25 MG Oral | [facility] | | | Tablet | | + + + + | 2022-07-15 00:00 | spironolactone 25 MG Oral | [facility] | | | Tablet | | + + + + | 2022-08-14 00:00 | spironolactone 25 MG Oral | [facility] | | | Tablet | | + + + + | 2017-12-29 00:00 | sumatriptan 50 MG Oral | [facility] | | | Tablet | | + + + + | 2019-01-05 00:00 | sumatriptan 50 MG Oral | [facility] | | | Tablet | | + + + + | 2020-02-21 00:00 | sumatriptan 50 MG Oral | [facility] | | | Tablet | | + + + + | 2022-09-28 00:00 | sumatriptan 50 MG Oral | [facility] | | | Tablet | | + + + + | 2017-12-29 00:00 | ciclopirox 0.0077 MG/MG | [facility] | | | Topical Gel | | + + + + | 2014-05-29 00:00 | furosemide 40 MG Oral | [facility] | | | Tablet | | + + + + | 2022-08-14 00:00 | metronidazole 250 MG Oral | [facility] | | | Tablet | | + + + + | 2022-05-05 00:00 | PANTOPRAZOLE SODIUM | [facility] | + + + + | 2022-05-05 00:00 | pantoprazole 40 MG Delayed | [facility] | | | Release Oral Tablet | | + + + + | 2022-06-11 00:00 | SIMETHICONE | [facility] | + + + + | 2022-09-14 00:00 | | [facility] | | | Sulfamethoxazole-Trimethopr | | | | im 800-160 MG Oral Tablet | | + + + + | 2022-05-19 00:00 | 24 HR isosorbide | [facility] | | | mononitrate 30 MG Extended | | | | Release Oral Tab | | + + + + | 2022-07-15 00:00 | 24 HR isosorbide | [facility] | | | mononitrate 30 MG Extended | | | | Release Oral Tab | | + + + + | 2022-08-14 00:00 | 24 HR isosorbide | [facility] | | | mononitrate 30 MG Extended | | | | Release Oral Tab | | + + + + | 2017-11-15 00:00 | 24 HR isosorbide | [facility] | | | mononitrate 30 MG Extended | | | | Release Oral Tablet | | + + + + | 2018-11-16 00:00 | 24 HR isosorbide | [facility] | | | mononitrate 30 MG Extended | | | | Release Oral Tablet | | + + + + | 2019-11-06 00:00 | 24 HR isosorbide | [facility] | | | mononitrate 30 MG Extended | | | | Release Oral Tablet | | + + + + | 2020-11-04 00:00 | 24 HR isosorbide | [facility] | | | mononitrate 30 MG Extended | | | | Release Oral Tablet | | + + + + | 2021-11-03 00:00 | 24 HR isosorbide | [facility] | | | mononitrate 30 MG Extended | | | | Release Oral Tablet | | + + + + | 2022-05-29 00:00 | ISOSORBIDE MONONITRATE | [facility] | + + + + | 2022-06-05 00:00 | ISOSORBIDE MONONITRATE | [facility] | + + + + | 2022-06-11 00:00 | ISOSORBIDE MONONITRATE | [facility] | + + + + | 2022-07-15 00:00 | ISOSORBIDE MONONITRATE | [facility] | + + + + | 2014-05-29 00:00 | valsartan 320 MG Oral | [facility] | | | Tablet [Diovan] | | + + + + | 2014-07-04 00:00 | Augmentin 500-125 MG OR | [facility] | | | TABS | | + + + + | 2020-02-21 00:00 | SUMAtriptan Succinate 50 | [facility] | | | MG Oral Tablet | | + + + + | 2022-09-28 00:00 | SUMAtriptan Succinate 50 | [facility] | | | MG Oral Tablet | | + + + + | 2017-12-29 00:00 | SUMAtriptan Succinate 50MG | [facility] | | | Oral Tablet | | + + + + | 2019-01-05 00:00 | SUMAtriptan Succinate 50MG | [facility] | | | Oral Tablet | | + + + + | 2014-07-05 00:00 | Imdur 30 MG OR TB24 | [facility] | | | | | + + + + | 2016-03-16 00:00 | Imdur 30 MG Tablet | [facility] | | | Extended Release 24 Hour | | + + + + | 2016-10-12 00:00 | Imdur 30 MG Tablet | [facility] | | | Extended Release 24 Hour | | + + + + | 2015-08-05 00:00 | Imdur 30 MG Tablet, | [facility] | | | extended-release 24 hour | | + + + + | 2017-05-10 00:00 | Imdur 30MG Oral Tablet | [facility] | | | Extended Release 24 Hour | | + + + + | 2022-07-02 00:00 | Melatonin 5 MG Oral Tablet | [facility] | | | | | + + + + | 2017-01-08 00:00 | Amoxicillin 500 MG Tablet | [facility] | | | | | + + + + | 2022-09-28 00:00 | Albuterol Sulfate HFA 108 | [facility] | | | (90 Base) MCG/ACT | | | | Inhalation Aerosol Solution | | | | | | + + + + | 2015-11-04 00:00 | Cipro 500 MG Tablet | [facility] | | | | | + + + + | 2018-07-04 00:00 | Torsemide 5MG Oral Tablet | [facility] | | | | | + + + + | 2021-09-08 00:00 | Claritin 10 MG Oral Tablet | [facility] | | | | | + + + + | 2018-09-28 00:00 | Azithromycin 250MG Oral | [facility] | | | Tablet | | + + + + | 2015-11-04 00:00 | Cortisporin [id number] | [facility] | | | Solution | | + + + + | 2014-05-29 00:00 | Noritate 1% EX CREA | [facility] | | | | | + + + + | 2020-02-21 00:00 | Losartan Potassium 100 MG | [facility] | | | Oral Tablet | | + + + + | 2018-07-04 00:00 | Losartan Potassium 100MG | [facility] | | | Oral Tablet | | + + + + | 2019-01-05 00:00 | Losartan Potassium 100MG | [facility] | | | Oral Tablet | | + + + + | 2014-05-29 00:00 | Viagra 50 MG OR TABS | [facility] | | | | | + + + + | 2019-11-06 00:00 | Isosorbide Mononitrate ER | [facility] | | | 30 MG Oral Tablet Extended | | | | Release 24 Hour | | + + + + | 2020-11-04 00:00 | Isosorbide Mononitrate ER | [facility] | | | 30 MG Oral Tablet Extended | | | | Release 24 Hour | | + + + + | 2021-11-03 00:00 | Isosorbide Mononitrate ER | [facility] | | | 30 MG Oral Tablet Extended | | | | Release 24 Hour | | + + + + | 2017-11-15 00:00 | Isosorbide Mononitrate ER | [facility] | | | 30MG Oral Tablet Extended | | | | Release 24 Hour | | + + + + | 2018-11-16 00:00 | Isosorbide Mononitrate ER | [facility] | | | 30MG Oral Tablet Extended | | | | Release 24 Hour | | + + + + | 2022-05-05 00:00 | AMOXICILLIN/POTASSIUM CLAV | [facility] | | | | | + + + + | 2022-05-05 00:00 | AMOXICILLIN/POTASSIUM CLAV | [facility] | | | | | + + + + | 2022-07-15 00:00 | AMOXICILLIN/POTASSIUM CLAV | [facility] | | | | | + + + + | 2022-05-05 00:00 | amoxicillin 500 MG / | [facility] | | | clavulanate 125 MG Oral | | | | Tablet | | + + + + | 2022-07-15 00:00 | amoxicillin 500 MG / | [facility] | | | clavulanate 125 MG Oral | | | | Tablet | | + + + + | 2016-01-16 00:00 | Aspirin Low Dose 81 MG | [facility] | | | Tablet | | + + + + | 2014-06-15 00:00 | [facility] Vitamin B-12 1000 MCG | [facility] | | | OR TABS | | + + + + | 2014-05-29 00:00 | [facility] Vitamin B-12 250 MCG | [facility] | | | OR TABS | | + + + + | 2014-05-29 00:00 | [facility] Vitamin B-6 100 MG OR | [facility] | | | TABS | | + + + + | 2017-12-29 00:00 | Ciclopirox 0.77% External | [facility] | | | Gel | | + + + + | 2021-09-08 00:00 | Azelastine HCl 0.05% | [facility] | | | Ophthalmic Solution | | + + + + | 2022-06-11 00:00 | Azelastine HCl 0.05% | [facility] | | | Ophthalmic Solution | | + + + + | 2014-05-29 00:00 | dilTIAZem HCl ER 180 MG OR | [facility] | | | CP24 | | + + + + | 2014-05-29 00:00 | Vonore 5-325 MG OR TABS | [facility] | | | | | + + + + | 2015-07-11 00:00 | Vonore 5-325 MG Tablet | [facility] | | | | | + + + + | 2015-06-17 00:00 | Doxycycline Hyclate 100 MG | [facility] | | | Tablet | | + + + + | 2016-01-16 00:00 | Doxycycline Hyclate 100 MG | [facility] | | | Tablet | | + + + + | 2016-06-26 00:00 | Doxycycline Hyclate 100 MG | [facility] | | | Tablet | | + + + + | 2017-11-24 00:00 | Doxycycline Hyclate 100MG | [facility] | | | Oral Tablet | | + + + + | 2014-05-29 00:00 | Diovan 320 MG OR TABS | [facility] | | | | | + + + + | 2014-10-22 00:00 | Flonase 50 MCG/ACT NA SUSP | [facility] | | | | | + + + + | 2015-02-04 00:00 | Flonase 50 MCG/ACT | [facility] | | | Suspension | | + + + + | 2015-04-08 00:00 | Flonase 50 MCG/ACT | [facility] | | | Suspension | | + + + + | 2016-02-17 00:00 | Flonase 50 MCG/ACT | [facility] | | | Suspension | | + + + + | 2016-11-05 00:00 | Flonase 50 MCG/ACT | [facility] | | | Suspension | | + + + + | 2017-07-12 00:00 | Flonase 50MCG/ACT Nasal | [facility] | | | Suspension | | + + + + | 2014-05-29 00:00 | Toprol XL 100 MG OR TB24 | [facility] | | | | | + + + + | 2014-06-15 00:00 | [id number] 200 ACTUAT | [facility] | | | albuterol 0.09 MG/ACTUAT | | | | Metered Dose Inhaler | | | | [ProAir] | | + + + + | 2022-06-30 00:00 | oxyCODONE-Acetaminophen | [facility] | | | 7.5-325 MG Oral Tablet | | + + + + | 2020-02-21 00:00 | Ventolin HFA 108 (90 Base) | [facility] | | | MCG/ACT Inhalation Aerosol | | | | Solution | | + + + + | 2018-07-04 00:00 | Ventolin HFA 108 (90 | [facility] | | | Base)MCG/ACT Inhalation | | | | Aerosol Solution | | + + + + | 2019-01-05 00:00 | Ventolin HFA 108 (90 | [facility] | | | Base)MCG/ACT Inhalation | | | | Aerosol Solution | | + + + + | 2014-05-29 00:00 | Zithromax 500 MG OR TABS | [facility] | | | | | + + + + | 2022-09-28 00:00 | [id number] 60 ACTUAT | [facility] | | | albuterol 0.09 MG/ACTUAT | | | | Metered Dose Inhaler | | + + + + | 2014-07-04 00:00 | amoxicillin 500 MG / | [facility] | | | clavulanate 125 MG Oral | | | | Tablet [Augmentin] | | + + + + | 2014-05-29 00:00 | 24 HR diltiazem | [facility] | | | hydrochloride 180 MG | | | | Extended Release Oral | | | | Capsule | | + + + + | 2014-05-29 00:00 | Ferrous Sulfate 325 (65 | [facility] | | | Fe) MG OR TABS | | + + + + | 2022-07-02 00:00 | Ferrous Sulfate 325 (65 | [facility] | | | Fe) MG Oral Tablet | | + + + + | 2015-11-25 00:00 | 3 ML insulin detemir 100 | [facility] | | | UNT/ML Pen Injector | | | | [Levemir] | | + + + + | 2016-07-14 00:00 | 3 ML insulin detemir 100 | [facility] | | | UNT/ML Pen Injector | | | | [Levemir] | | + + + + | 2017-01-25 00:00 | 3 ML insulin detemir 100 | [facility] | | | UNT/ML Pen Injector | | | | [Levemir] | | + + + + | 2017-06-14 00:00 | 3 ML insulin detemir 100 | [facility] | | | UNT/ML Pen Injector | | | | [Levemir] | | + + + + | 2018-01-04 00:00 | 3 ML insulin detemir 100 | [facility] | | | UNT/ML Pen Injector | | | | [Levemir] | | + + + + | 2018-07-28 00:00 | 3 ML insulin detemir 100 | [facility] | | | UNT/ML Pen Injector | | | | [Levemir] | | + + + + | 2019-01-05 00:00 | 3 ML insulin detemir 100 | [facility] | | | UNT/ML Pen Injector | | | | [Levemir] | | + + + + | 2019-07-14 00:00 | 3 ML insulin detemir 100 | [facility] | | | UNT/ML Pen Injector | | | | [Levemir] | | + + + + | 2020-10-28 00:00 | 3 ML insulin detemir 100 | [facility] | | | UNT/ML Pen Injector | | | | [Levemir] | | + + + + | 2020-02-12 00:00 | BD Pen Needle Mini U/F 31G | [facility] | | | X 5 MM Miscellaneous | | + + + + | 2021-04-07 00:00 | BD Pen Needle Mini U/F 31G | [facility] | | | X 5 MM Miscellaneous | | + + + + | 2022-07-02 00:00 | diclofenac sodium 0.01 | [facility] | | | MG/MG Topical Gel | | | | [Voltaren] | | + + + + | 2014-05-29 00:00 | acetaminophen 325 MG / | [facility] | | | hydrocodone bitartrate 5 MG | | | | Oral Tablet [Vonore] | | + + + + | 2015-07-11 00:00 | acetaminophen 325 MG / | [facility] | | | hydrocodone bitartrate 5 MG | | | | Oral Tablet [Vonore] | | + + + + | 2018-07-04 00:00 | [id number] 200 ACTUAT | [facility] | | | albuterol 0.09 MG/ACTUAT | | | | Metered Dose Inhaler | | | | [Ventolin] | | + + + + | 2019-01-05 00:00 | [id number] 200 ACTUAT | [facility] | | | albuterol 0.09 MG/ACTUAT | | | | Metered Dose Inhaler | | | | [Ventolin] | | + + + + | 2020-02-21 00:00 | [id number] 200 ACTUAT | [facility] | | | albuterol 0.09 MG/ACTUAT | | | | Metered Dose Inhaler | | | | [Ventolin] | | + + + + | 2022-05-29 00:00 | AZELASTINE HCL | [facility] | + + + + | 2022-06-05 00:00 | AZELASTINE HCL | [facility] | + + + + | 2022-06-11 00:00 | AZELASTINE HCL | [facility] | + + + + | 2022-07-15 00:00 | AZELASTINE HCL | [facility] | + + + + | 2021-09-08 00:00 | azelastine hydrochloride | [facility] | | | 0.5 MG/ML Ophthalmic | | | | Solution | | + + + + | 2022-05-19 00:00 | azelastine hydrochloride | [facility] | | | 0.5 MG/ML Ophthalmic | | | | Solution | | + + + + | 2022-06-11 00:00 | azelastine hydrochloride | [facility] | | | 0.5 MG/ML Ophthalmic | | | | Solution | | + + + + | 2022-07-15 00:00 | azelastine hydrochloride | [facility] | | | 0.5 MG/ML Ophthalmic | | | | Solution | | + + + + | 2022-08-14 00:00 | azelastine hydrochloride | [facility] | | | 0.5 MG/ML Ophthalmic | | | | Solution | | + + + + | 2022-08-14 00:00 | tamsulosin hydrochloride | [facility] | | | 0.4 MG Oral Capsule | | + + + + | 2022-08-14 00:00 | tamsulosin hydrochloride | [facility] | | | 0.4 MG Oral Capsule | | | | [Flomax] | | + + + + | 2022-10-27 00:00 | tamsulosin hydrochloride | [facility] | | | 0.4 MG Oral Capsule | | | | [Flomax] | | + + + + | 2014-05-29 00:00 | Allopurinol 300 MG OR TABS | [facility] | | | | | + + + + | 2014-05-29 00:00 | 24 HR metoprolol succinate | [facility] | | | 100 MG Extended Release | | | | Oral Tablet [Toprol] | | + + + + | 2014-05-29 00:00 | Furosemide 40 MG OR TABS | [facility] | | | | | + + + + | 2014-05-29 00:00 | fluticasone propionate 0.5 | [facility] | | | MG/ML Topical Cream | | + + + + | 2014-12-03 00:00 | Accu-Chek Multiclix | [facility] | | | Lancets MISC | | + + + + | 2022-05-29 00:00 | LOSARTAN POTASSIUM | [facility] | + + + + | 2022-06-05 00:00 | LOSARTAN POTASSIUM | [facility] | + + + + | 2022-06-11 00:00 | LOSARTAN POTASSIUM | [facility] | + + + + | 2022-07-15 00:00 | LOSARTAN POTASSIUM | [facility] | + + + + | 2018-07-04 00:00 | losartan potassium 100 MG | [facility] | | | Oral Tablet | | + + + + | 2019-01-05 00:00 | losartan potassium 100 MG | [facility] | | | Oral Tablet | | + + + + | 2020-02-21 00:00 | losartan potassium 100 MG | [facility] | | | Oral Tablet | | + + + + | 2022-05-19 00:00 | losartan potassium 100 MG | [facility] | | | Oral Tablet | | + + + + | 2022-07-15 00:00 | losartan potassium 100 MG | [facility] | | | Oral Tablet | | + + + + | 2022-08-14 00:00 | losartan potassium 100 MG | [facility] | | | Oral Tablet | | + + + + | 2015-06-21 00:00 | codeine phosphate 2 MG/ML | [facility] | | | / promethazine | | | | hydrochloride 1.25 MG/ML | | | | Oral Solution | | + + + + | 2022-07-02 00:00 | promethazine hydrochloride | [facility] | | | 25 MG Oral Tablet | | + + + + | 2017-06-11 00:00 | acetaminophen 300 MG / | [facility] | | | codeine phosphate 30 MG | | | | Oral Tablet [Tylenol with | | | | Codeine] | | + + + + | 2014-05-29 00:00 | fexofenadine hydrochloride | [facility] | | | 180 MG Oral Tablet | | | | [Niharika] | | + + + + | 2022-10-30 00:00 | Miscellaneous | [facility] | | | | | + + + + | 2017-07-21 00:00 | Olopatadine HCL 0.1% | [facility] | | | Ophthalmic Intraocular | | | | Solution | | + + + + | 2022-07-02 00:00 | Olopatadine HCL 0.1% | [facility] | | | Ophthalmic Intraocular | | | | Solution | | + + + + | 2022-07-02 00:00 | Apixaban 5 mg Oral Tablet | [facility] | | | | | + + + + | 2022-10-27 00:00 | Apixaban 5 mg Oral Tablet | [facility] | | | | | + + + + Problems + + + + | date | description | facility | + + + + | 2014-06-14 00:00 | Constipation (finding) | [facility] | | | | | + + + + | 2014-06-14 00:00 | NEOPLASM, COLON, BENIGN | [facility] | | | | | + + + + | 2014-06-14 00:00 | DM II CONTROLLED | [facility] | | | | | + + + + | 2014-06-14 00:00 | Dyspnea (finding) | [facility] | | | | | + + + + | 2014-06-14 00:00 | Edema (finding) | [facility] | | | | | + + + + | 2014-06-14 00:00 | DEFICIENCY,VIT D,NOS | [facility] 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 | | | OTHER & UNSPECIFIED | | + + + + | 2014-06-14 00:00 | ERECTILE DISORDER | [facility] | | | | | + + + + | 2014-06-14 00:00 | CEREBRAL PALSY,OTHER | [facility] | | | SPECIFIED | | + + + + | 2014-06-14 00:00 | MIGRAINE, UNSPECIFIED, W/O | [facility] | | | MENTION OF INTRACT | | + + + + | 2014-06-14 00:00 | Vitamin D deficiency | [facility] | | | (disorder) | | + + + + | 2014-06-14 00:00 | Migraine (disorder) | [facility] | | | | | + + + + | 2014-06-14 00:00 | Rosacea (disorder) | [facility] | | | | | + + + + | 2014-06-14 00:00 | HTN BENIGN | [facility] | | | | | + + + + | 2014-06-14 00:00 | Renal failure syndrome | [facility] | | | (disorder) | | + + + + | 2014-06-14 00:00 | Diabetes mellitus type 2 | [facility] | | | (disorder) | | + + + + | 2014-06-14 00:00 | OTHER & UNSPEC CAPILLARY | [facility] | | | DISEASES | | + + + + | 2014-06-14 00:00 | Hyperlipidemia (disorder) | [facility] | | | | | + + + + | 2014-06-14 00:00 | CONSTIPATION, OTHER | [facility] | | | | | + + + + | 2014-06-14 00:00 | FAILURE, RENAL | [facility] | | | | | + + + + | 2014-06-14 00:00 | Disorder of capillaries | [facility] | | | (disorder) | | + + + + | 2014-06-14 00:00 | Essential hypertension | [facility] | | | (disorder) | | + + + + | 2014-06-14 00:00 | Blood coagulation disorder | [facility] | | | (disorder) | | + + + + | 2014-06-14 00:00 | Polyp of colon (disorder) | [facility] | | | | | + + + + | 2014-06-14 00:00 | ROSACEA ERYTHEMATOUS | [facility] | | | CONDITIONS | | + + + + | 2014-06-14 00:00 | Nerve root disorder | [facility] | | | (disorder) | | + + + + | 2014-06-14 00:00 | NEURITIS/RADICULITIES | [facility] | | | | | + + + + | 2014-06-14 00:00 | EDEMA | [facility]. | | | | | + + + + | 2014-06-14 00:00 | ORTHOPNEA | [facility]. | | | | | + + + + | 2014-06-14 00:00 | Erectile dysfunction | [facility] | | | (disorder) | | + + + + | 2014-06-14 00:00 | Coagulation Defects | [facility] | | | | | + + + + | 2014-06-14 00:00 | Diabetes Mellitus Type 2 | [facility] | | | | | + + + + | 2014-06-14 00:00 | Vitamin D Deficiency | [facility] | | | | | + + + + | 2014-06-14 00:00 | Hyperlipidemia | [facility]. | | | | | + + + + | 2014-06-14 00:00 | Male Erectile Disorder | [facility]. | | | | | + + + + | 2014-06-14 00:00 | Migraine Headache | [facility]. | | | | | + + + + | 2014-06-14 00:00 | Cerebral Palsy Ataxic | [facility] | | | | | + + + + | 2014-06-14 00:00 | Essential Hypertension | [facility] | | | | | + + + + | 2014-06-14 00:00 | Disease of Capillaries | [facility] | | | | | + + + + | 2014-06-14 00:00 | Constipation | [facility] | | | | | + + + + | 2014-06-14 00:00 | Polyps Colon | [facility] | | | | | + + + + | 2014-06-14 00:00 | Rosacea | [facility] | | | | | + + + + | 2014-06-14 00:00 | Radiculopathy | [facility] | | | | | + + + + | 2014-06-14 00:00 | Renal Failure | [facility] | | | | | + + + + | 2014-06-14 00:00 | Difficulty Breathing | [facility] | | | (Dyspnea) | | + + + + | 2014-06-14 00:00 | Edema | [facility] | | | | | + + + + | 2014-08-08 00:00 | Angina (disorder) | [facility] | | | | | + + + + | 2014-08-08 00:00 | ANGINA UNSPECIFIED | [facility] | | | | | + + + + | 2014-08-08 00:00 | ISCHEMIA, HEART DISEASE, | [facility] | | | SPECIFIED | | + + + + | 2014-08-08 00:00 | Ischemic heart disease | [facility] | | | (disorder) | | + + + + | 2014-08-08 00:00 | Angina Pectoris | [facility] | | | | | + + + + | 2014-08-08 00:00 | Ischemic Heart Disease | [facility] | | | | | + + + + | 2015-06-07 00:00 | Benign prostatic | [facility] | | | hyperplasia (disorder) | | + + + + | 2015-06-07 00:00 | BPH w/o obstruction | [facility] | | | | | + + + + | 2015-06-07 00:00 | Benign Prostatic | [facility] | | | Hypertrophy | | + + + + | 2015-09-03 00:00 | Abscess of liver | [facility] | | | (disorder) | | + + + + | 2015-09-03 00:00 | ABSCESS, LIVER (HEPATIC) | [facility] | | | | | + + + + | 2015-09-03 00:00 | Liver Abscess | [facility] | | | | | + + + + | 2016-01-16 00:00 | Organic sleep apnea | [facility] | | | (disorder) | | + + + + | 2016-01-16 00:00 | APNEA SLEEP UNSPECIFIED | [facility] | | | | | + + + + | 2016-01-16 00:00 | Organic Sleep Apnea | [facility] | | | | | + + + + | 2016-06-26 00:00 | SCLEROSIS,SPINAL | [facility] 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 | | | | | + + + + | 2017-11-24 00:00 | Hyperkalemia (disorder) | [facility] | | | | | + + + + | 2017-11-24 00:00 | HYPERKALEMIA | [facility] | | | | | + + + + | 2017-11-24 00:00 | Hyperkalemia | [facility] | | | | | + + + + | 2022-03-30 00:00 | KILEY (acute kidney injury) | [facility] | + + + + | 2022-03-30 00:00 | Septic shock | [facility] | + + + + | 2022-03-30 00:00 | Septic shock | [facility] | + + + + | 2022-03-30 00:00 | Diverticulitis | [facility] | + + + + | 2022-03-30 00:00 | Diverticulitis | [facility] | + + + + | 2022-03-30 00:00 | Acute kidney injury | [facility] | + + + + | 2022-03-30 00:00 | Acute kidney injury | [facility] | + + + + | 2022-03-30 13:43 | SEPSIS, UNSPECIFIED | [facility] | | | ORGANISM | | + + + + | 2022-03-30 13:43 | 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[facility] | | | THROMBOCYTOPENIA | | + + + + | 2022-03-30 13:43 | TYPE 2 DIABETES MELLITUS W | [facility] | | | DIABETIC CHRONIC KIDNEY | | + + + + | 2022-03-30 13:43 | TYPE 2 DIABETES MELLITUS | [facility] | | | WITH HYPERGLYCEMIA | | + + + + | 2022-03-30 13:43 | HYPERKALEMIA | [facility] | + + + + | 2022-03-30 13:43 | HYPERTENSIVE CHRONIC | [facility] | | | KIDNEY DISEASE W STG | | | | 1-4/UNSP | | + + + + | 2022-03-30 13:43 | GASTRO-ESOPHAGEAL REFLUX | [facility] | | | DISEASE WITHOUT ESOPHAGIT | | + + + + | 2022-03-30 13:43 | ACUTE DILATATION OF | [facility] | | | STOMACH | | + + + + | 2022-03-30 13:43 | ACUTE INFARCTION OF SMALL | [facility] | | | INTESTINE, EXTENT UNSPEC | | + + + + | 2022-03-30 13:43 | DVTRCLI OF SM INT W | [facility] | | | PERFORATION AND ABSCESS W/O | | | | BL | | + + + + | 2022-03-30 13:43 | TOXIC MEGACOLON | [facility] | + + + + | 2022-03-30 13:43 | PERITONEAL ABSCESS | [facility] | + + + + | 2022-03-30 13:43 | ACUTE KIDNEY FAILURE WITH | [facility] | | | TUBULAR NECROSIS | | + + + + | 2022-03-30 13:43 | SEVERE SEPSIS WITH SEPTIC | [facility] | | | SHOCK | | + + + + | 2022-03-30 13:43 | ADVERSE EFFECT OF UNSP | [facility] | | | SYSTEMIC ANTIBIOTIC, INIT E | | | | | | + + + + | 2022-03-30 13:43 | REMOV ORG (TOTAL) CAUSE | [facility] | | | ABN REACT/COMPL, W/O MISAD | | + + + + | 2022-03-30 13:43 | [facility] (CURRENT) USE OF | [facility] | | | ANTIBIOTICS | | + + + + | 2022-03-30 13:43 | OTHER [facility] (CURRENT) | [facility] | | | DRUG THERAPY | | + + + + | 2022-03-30 13:43 | ALLERGY STATUS TO OTHER | [facility] | | | ANTIBIOTIC AGENTS STATUS | | + + + + | 2022-03-30 13:43 | ACQUIRED ABSENCE OF OTHER | [facility] | | | SPECIFIED PARTS OF DIGES | | + + + + | 2022-03-30 13:43 | PRESENCE OF LEFT | [facility] | | | ARTIFICIAL SHOULDER JOINT | | + + + + | 2022-03-30 13:43 | PRESENCE OF LEFT | [facility] | | | ARTIFICIAL KNEE JOINT | | + + + + | 2022-03-30 13:43 | OTHER SPECIFIED | [facility] | | | POSTPROCEDURAL STATES | | + + + + | 2022-05-11 00:00 | Intra-abdominal abscess | [facility] | | | post-procedure | | + + + + | 2022-05-11 00:00 | Intra-abdominal abscess | [facility] | + + + + | 2022-05-11 00:00 | Intra-abdominal abscess | [facility] | + + + + | 2022-05-11 00:00 | Postoperative | [facility] | | | intra-abdominal abscess | | + + + + | 2022-05-11 00:00 | Postoperative | [facility] | | | intra-abdominal abscess | | + + + + | 2022-05-28 18:26 | TYPE 2 DIABETES MELLITUS | [facility] | | | WITHOUT COMPLICATIONS | | + + + + | 2022-05-28 18:26 | Essential (primary) | [facility] | | | hypertension | | + + + + | 2022-05-28 18:26 | UNSPECIFIED ASTHMA, | [facility] | | | UNCOMPLICATED | | + + + + | 2022-05-28 18:26 | UNSPECIFIED ABDOMINAL PAIN | [facility] | | | | | + + + + | 2022-05-28 18:26 | 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) | [facility] | | | DRUG THERAPY | | + + + + | 2022-05-28 18:26 | ALLERGY STATUS TO OTH | [facility] | | | DRUG/MEDS/BIOL SUBST STATUS | | | | | | + + + + | 2022-05-28 18:26 | LATEX ALLERGY STATUS | [facility] | + + + + | 2022-05-29 00:00 | Abdominal pain | [facility] | + + + + | 2022-05-29 00:00 | Abdominal pain | [facility] | + + + + | 2022-06-05 00:00 | Left leg DVT | [facility] | + + + + | 2022-06-05 00:00 | Deep vein thrombosis (DVT) | [facility] | | | of left lower extremity | | + + + + | 2022-06-05 00:00 | Deep vein thrombosis (DVT) | [facility] | | | of left lower extremity | | + + + + | 2022-06-05 14:08 | TYPE 2 DIABETES MELLITUS W | [facility] | | | DIABETIC CHRONIC KIDNEY | | + + + + | 2022-06-05 14:08 | HYPERTENSIVE CHRONIC | [facility] | | | KIDNEY DISEASE W STG | | | | 1-4/UNSP | | + + + + | 2022-06-05 14:08 | ACUTE EMBOLISM AND | [facility] | | | THROMBOSIS OF LEFT FEMORAL | | | | VEIN | | + + + + | 2022-06-05 14:08 | AC EMBLSM AND MELISA UNSP | [facility] | | | DEEP VEINS OF LEFT DIST | | + + + + | 2022-06-05 14:08 | UNSPECIFIED ASTHMA, | [facility] | | | UNCOMPLICATED | | + + + + | 2022-06-05 14:08 | LOCALIZED EDEMA | [facility] | + + + + | 2022-06-05 14:08 | OTHER [facility] (CURRENT) | [facility] | | | DRUG THERAPY | | + + + + | 2022-06-05 14:08 | ALLERGY STATUS TO OTH | [facility] | | | DRUG/MEDS/BIOL SUBST STATUS | | | | | | + + + + | 2022-06-05 14:08 | LATEX ALLERGY STATUS | [facility] | + + + + | 2022-06-08 00:00 | Hyponatremia | [facility] | + + + + | 2022-06-08 00:00 | Hyponatremia | [facility] | + + + + | 2022-07-10 00:00 | Encounter for wound | [facility] | | | re-check | | + + + + | 2022-07-10 00:00 | Encounter for wound | [facility] | | | re-check | | + + + + | 2022-07-10 19:36 | ANEMIA IN CHRONIC KIDNEY | [facility] | | | DISEASE | | + + + + | 2022-07-10 19:36 | TYPE 2 DIABETES MELLITUS W | [facility] | | | DIABETIC CHRONIC KIDNEY | | + + + + | 2022-07-10 19:36 | HYPERLIPIDEMIA, | [facility] | | | UNSPECIFIED | | + + + + | 2022-07-10 19:36 | HYPERURICEMIA W/O SIGNS OF | [facility] | | | INFLAM ARTHRIT AND TOPH | | + + + + | 2022-07-10 19:36 | INSOMNIA, UNSPECIFIED | [facility] | + + + + | 2022-07-10 19:36 | HYPERTENSIVE CHRONIC | [facility] | | | KIDNEY DISEASE W STG | | | | 1-4/UNSP | | + + + + | 2022-07-10 19:36 | UNSPECIFIED ASTHMA, | [facility] | | | UNCOMPLICATED | | + + + + | 2022-07-10 19:36 | GASTRO-ESOPHAGEAL REFLUX | [facility] | | | DISEASE WITHOUT ESOPHAGIT | | + + + + | 2022-07-10 19:36 | CUTANEOUS ABSCESS OF | [facility] | | | ABDOMINAL WALL | | + + + + | 2022-07-10 19:36 | CELLULITIS OF ABDOMINAL | [facility] | | | WALL | | + + + + | 2022-07-10 19:36 | GOUT, UNSPECIFIED | [facility] | + + + + | 2022-07-10 19:36 | INFCT FOL A PROC, SUPERFIC | [facility] | | | INCISIONAL SURGICAL SIT | | + + + + | 2022-07-10 19:36 | OTH SURGICAL PROCEDURES | [facility] | | | CAUSE ABN REACT/COMPL, W/O | | + + + + | 2022-07-10 19:36 | 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) | [facility] | | | DRUG THERAPY | | + + + + | 2022-07-10 19:36 | PERSONAL HISTORY OF OTHER | [facility] | | | VENOUS THROMBOSIS AND EM | | + + + + | 2022-07-10 19:36 | ALLERGY STATUS TO OTHER | [facility] | | | ANTIBIOTIC AGENTS STATUS | | + + + + | 2022-07-10 19:36 | ALLERGY STATUS TO OTH | [facility] | | | DRUG/MEDS/BIOL SUBST STATUS | | | | | | + + + + | 2022-07-10 19:36 | ACQUIRED ABSENCE OF OTHER | [facility] | | | SPECIFIED PARTS OF DIGES | | + + + + | 2022-07-10 19:36 | LATEX ALLERGY STATUS | [facility] | + + + + | 2022-07-10 19:36 | PRESENCE OF LEFT | [facility] | | | ARTIFICIAL SHOULDER JOINT | | + + + + | 2022-07-10 19:36 | PRESENCE OF LEFT | [facility] | | | ARTIFICIAL KNEE JOINT | | + + + + | 2022-07-10 19:36 | OTHER SPECIFIED | [facility] | | | POSTPROCEDURAL STATES | | + + + + | 2022-07-13 00:00 | Wound infection after | [facility] | | | surgery | | + + + + | 2022-07-13 00:00 | Postoperative wound | [facility] | | | infection | | + + + + | 2022-07-27 19:44 | TYPE 2 DIABETES MELLITUS W | [facility] | | | DIABETIC CHRONIC KIDNEY | | + + + + | 2022-07-27 19:44 | Essential (primary) | [facility] | | | hypertension | | + + + + | 2022-07-27 19:44 | HYPERTENSIVE CHRONIC | [facility] | | | KIDNEY DISEASE W STG | | | | 1-4/UNSP | | + + + + | 2022-07-27 19:44 | UNSPECIFIED ASTHMA, | [facility] | | | UNCOMPLICATED | | + + + + | 2022-07-27 19:44 | GASTRO-ESOPHAGEAL REFLUX | [facility] | | | DISEASE WITHOUT ESOPHAGIT | | + + + + | 2022-07-27 19:44 | PERITONEAL ABSCESS | [facility] | + + + + | 2022-07-27 19:44 | GOUT, UNSPECIFIED | [facility] | + + + + | 2022-07-27 19:44 | 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, MALE, | | | | UNSPECIFIED | | + + + + | 2022-07-27 19:44 | INFCT FOL A PROCEDURE, | [facility] | | | DEEP INCISIONAL SURGICAL | | | | SITE, INIT | | + + + + | 2022-07-27 19:44 | OTH SURGICAL PROCEDURES | [facility] | | | CAUSE ABN REACT/COMPL, W/O | | + + + + | 2022-07-27 19:44 | [facility] (CURRENT) USE OF | [facility] | | | ANTICOAGULANTS | | + + + + | 2022-07-27 19:44 | 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) | [facility] | | | DRUG THERAPY | | + + + + | 2022-07-27 19:44 | ALLERGY STATUS TO OTHER | [facility] | | | ANTIBIOTIC AGENTS STATUS | | + + + + | 2022-07-27 19:44 | ALLERGY STATUS TO OTH | [facility] | | | DRUG/MEDS/BIOL SUBST STATUS | | | | | | + + + + | 2022-07-27 19:44 | ACQUIRED ABSENCE OF OTHER | [facility] | | | SPECIFIED PARTS OF DIGES | | + + + + | 2022-07-27 19:44 | LATEX ALLERGY STATUS | [facility] | + + + + | 2022-07-27 19:44 | ILEOSTOMY STATUS | [facility] | + + + + | 2022-07-27 19:44 | PRESENCE OF LEFT | [facility] | | | ARTIFICIAL SHOULDER JOINT | | + + + + | 2022-07-27 19:44 | PRESENCE OF LEFT | [facility] | | | ARTIFICIAL KNEE JOINT | | + + + + | 2022-07-27 19:44 | OTHER SPECIFIED | [facility] | | | POSTPROCEDURAL STATES | | + + + + | 2022-09-16 08:43 | PERITONEAL ABSCESS | [facility] | + + + + | 2023-01-27 10:08 | GENERALIZED (ACUTE) | [facility] | | | PERITONITIS | | + + + + | 2023-01-27 10:08 | PERITONEAL ABSCESS | [facility] | + + + + | 2023-03-22 08:47 | NONTOXIC SINGLE THYROID | [facility] | | | NODULE | | + + + + | 2023-03-22 08:47 | GASTRO-ESOPHAGEAL REFLUX | [facility] | | | DISEASE WITHOUT ESOPHAGIT | | + + + + | 2023-03-22 08:47 | DYSKINESIA OF ESOPHAGUS | [facility] | + + + + | 2023-03-22 08:47 | ACQUIRED ABSENCE OF OTHER | [facility] | | | SPECIFIED PART | | + + + + | 2023-03-22 08:47 | ILEOSTOMY STATUS | [facility] | + + + + | 2023-03-22 09:00 | ACQUIRED ABSENCE OF OTHER | [facility] | | | SPECIFIED PART | | + + + + | 2023-03-31 07:30 | ACUTE INFARCTION OF | [facility] | | | INTESTINE, PART AND | | + + + + | 2023-03-31 07:30 | ACQUIRED ABSENCE OF OTHER | [facility] | | | SPECIFIED PART | | + + + + Procedures + + + + | date | description | facility | + + + + | 2022-03-30 00:00 | INSERTION OF INFUSION DEV | [facility] | | | INTO SUP VENA CAVA, PERC | | | | APPROACH | | + + + + | 2022-04-11 00:00 | INSERTION OF INFUSION DEV | [facility] | | | INTO SUP VENA CAVA, PERC | | | | APPROACH | | + + + + | 2022-04-11 00:00 | REMOVAL OF INFUSION DEVICE | [facility] | | | FROM UPPER VEIN, BEHAVIORAL THERAPIST | | | | APPROACH | | + + + + | 2022-04-11 00:00 | BYPASS SMALL INTESTINE TO | [facility] | | | CUTANEOUS, OPEN APPROACH | | + + + + | 2022-03-31 00:00 | BYPASS ILEUM TO CUTANEOUS, | [facility] | | | OPEN APPROACH | | + + + + | 2022-04-11 00:00 | EXCISION OF JEJUNUM, OPEN | [facility] | | | APPROACH | | + + + + | 2022-04-11 00:00 | EXCISION OF ILEUM, OPEN | [facility] | | | APPROACH | | + + + + | 2022-04-02 00:00 | INSPECTION OF LOWER | [facility] | | | INTESTINAL TRACT, ENDO | | + + + + | 2022-03-31 00:00 | RESECTION OF TRANSVERSE | [facility] | | | COLON, OPEN APPROACH | | + + + + | 2022-07-13 00:00 | DRAINAGE OF ABD | [facility] | | | SUBCU/FASCIA WITH DRAIN | | | | DEV, OPEN APPROACH | | + + + + | 2022-07-13 00:00 | DRAINAGE OF BLADDER WITH | [facility] | | | DRAINAGE DEVICE, VIA | | | | OPENING | | + + + + | 2022-07-13 00:00 | INSPECTION OF BLADDER, | [facility] [facility] | | | ENDO | | + + + + | 2017-11-24 00:00 | Repair of [facility] | [facility] | | | inguinal hernia (procedure) | | | | | | + + + + | 2017-11-24 00:00 | History of surgery | Raul FUENTES. | | | (situation) | | + + + + | 2022-07-13 00:00 | Cystoscopy | [facility] | + + + + | 2022-07-13 00:00 | Cystoscopy | [facility] | + + + + | 2022-08-04 00:00 | Cystoscopy | [facility] | + + + + | 2017-11-24 00:00 | Shoulder Surgery Right | [facility] | | | | | + + + + | 2017-11-24 00:00 | Shoulder Surgery Left | Joseph FUENTES | | | | | + + + + | 2022-03-30 00:00 | TRANSFUSE NONAUT RED BLOOD | [facility] | | | CELLS IN PERIPH VEIN, PERC | | | | | | + + + + | 2022-10-27 00:00 | Controlling Blood | [facility] | | | Pressure; Most recent | | | | Systolic <130mm Hg | | + + + + | 2022-10-27 00:00 | Controlling BP; Most | Raul FUENTES. | | | recent Diastolic BP < 80mm | | | | Hg | | + + + + | 2022-03-30 00:00 | INTRODUCE OF OTH | [facility] | | | ANTI-INFECT INTO PERIPH | | | | VEIN, PERC APPROACH | | + + + + | 2022-03-30 00:00 | INTRODUCTION OF | [facility] | | | VASOPRESSOR INTO PERIP | | | | VEIN, PERC APPROACH | | + + + + | 2017-11-24 00:00 | Appendectomy | Joseph FUENTES | | | | | + + + + | 2017-11-24 00:00 | Hernia Repair | Joseph FUENTES | | | | | + + + + | 2017-11-24 00:00 | Cholecystectomy | Raul FUENTES. | | | Laparoscopic | | + + + + | 2017-11-24 00:00 | history of prior surgery | Joseph FUENTES | | | [For Hx of Tx, use H | | | | prefix] | | + + + + | 2022-07-13 00:00 | Exploratory laparoscopy | [facility] | + + + + | 2022-07-13 00:00 | Exploratory laparoscopy | [facility] | + + + + | 2017-11-24 00:00 | Laparoscopic | Raul FUENTES. | | | cholecystectomy (procedure) | | | | | | + + + + | 2017-11-24 00:00 | Incarcerated Inguinal | [facility] | | | Hernia Repair For Person | | | | Over Age 5 | | + + + + | 2017-11-24 00:00 | Hernia repair (procedure) | [facility] | | | | | + + + + | 2022-07-13 00:00 | Exploratory laparoscopy | [facility] | + + + + | 2022-05-12 00:00 | Incision and drainage | [facility] | + + + + | 2022-07-13 00:00 | Incision and drainage | [facility] | + + + + | 2022-07-13 00:00 | Incision and drainage | [facility] | + + + + | 2022-07-13 00:00 | Cystoscopy | [facility] | + + + + | 2017-11-24 00:00 | Total knee replacement | [facility] | | | (procedure) | | + + + + | 2017-11-24 00:00 | Total Knee Arthroplasty | [facility] | | | | | + + + + | 2022-07-29 00:00 | Exploratory laparotomy | [facility] | + + + + | 2022-08-04 00:00 | Exploratory laparotomy | [facility] | + + + + | 2022-08-07 00:00 | Exploratory laparotomy | [facility] | + + + + | 2017-11-24 00:00 | Operative procedure on | [facility] | | | shoulder region (procedure) | | | | | | + + + + | 2017-11-24 00:00 | Excision of appendix | [facility] | | | (procedure) | | + + + + Results/Labs +--------+--------+ +---------+--------+---------+ | test | date | facility | value | unit | notes | +--------+--------+ +---------+--------+---------+ + + | Result panel 1 | + + + + + +-------+ + + | | 2022-03-30 | [facility] | 5.1 | (missing) | (missing) | | (unavailable | 07:37 | [facility] | | | | + + + +-------+ + + + + | Result panel 2 | + + + + + +-------+ + + | | 2022-03-30 | [facility] | 5.1 | (missing) | (missing) | | (unavailable | 07:37 | [facility] | | | | + + + +-------+ + + + + | Result panel 3 | + + + + + +-------+ + + | Hgb A1c % | 2022-03-30 | [facility] | 5.1 | (missing) | (missing) | | | 07:37 | [facility] | | | | + + + +-------+ + + + + | Result panel 4 | + + + + + + + + + | Bacterial | 2022-03-30 | [facility] | SEE | (missing) | (missing) | | blood | 08:41 | [facility] SEPARATE | | | | culture | | Hospital | REPORT | | | + + + + + + + + + | Result panel 5 | + + + + + + +---------+ + | | 2022-03-30 | [facility] | 120.16 | mg/dL | (missing) | | (unavailable | 09:35 | [facility] | | | | + + + + +---------+ + + + | Result panel 6 | + + + + + +------+ + + | | 2022-03-30 | [facility] | 22 | (missing) | (missing) | | (unavailable | 09:35 | [facility] | | | | + + + +------+ + + + + | Result panel 7 | + + + + + + + + + | | 2022-03-30 | [facility] | SEE SCANNED | (missing) | (missing) | | (unavailable | 09:35 | [facility] REPORT | | | | ) | | Hospital | | | | + + + + + + + + + | Result panel 8 | + + + + + + + + + | Urine | 2022-03-30 | [facility] | 120.16 | (missing) | (missing) | | creatinine | 09:35 | [facility] | | | | measurement | | Hospital | | | | | (mass/volume | | | | | | | ) | | | | | | + + + + + + + + + | Result panel 9 | + + + + + +------+ + + | Urine | 2022-03-30 | [facility] | 22 | (missing) | (missing) | | sodium | 09:35 | [facility] | | | | measurement | | Hospital | | | | | (moles/volum | | | | | | | e) | | | | | | + + + +------+ + + + + | Result panel 10 | + + + + + + +---------+ + | | 2022-03-30 | [facility] | 120.16 | mg/dL | (missing) | | (unavailable | 09:35 | [facility] | | | | + + + + +---------+ + + + | Result panel 11 | + + + + + + + + + | Urine urea | 2022-03-30 | [facility] | SEE SCANNED | (missing) | (missing) | | nitrogen | 09:35 | [facility] REPORT | | | | measurement | | Hospital | | | | | (mass/volume | | | | | | | ) | | | | | | + + + + + + + + + | Result panel 12 | + + + + + +------+ + + | | 2022-03-30 | [facility] | 22 | (missing) | (missing) | | (unavailable | 09:35 | [facility] | | | | + + + +------+ + + + + | Result panel 13 | + + + + + + + + + | | 2022-03-30 | [facility] | SEE SCANNED | (missing) | (missing) | | (unavailable | 09:35 | [facility] REPORT | | | | ) | | Hospital | | | | + + + + + + + + + | Result panel 14 | + + + + + + + + + | Gram stain | 2022-03-31 | [facility] | See scanned | (missing) | (missing) | | microscopy | 10:27 | [facility] report. | | | | | | Hospital | | | | + + + + + + + + + | Result panel 15 | + + + + + + + + + | Aerobic | 2022-03-31 | [facility] | SEE | (missing) | (missing) | | bacterial | 10:27 | [facility] SEPARATE | | | | culture | | Hospital | REPORT | | | + + + + + + + + + | Result panel 16 | + + + + + + + + + | Bacterial | 2022-03-31 | [facility] | SEE | (missing) | (missing) | | anaerobic | 10:27 | [facility]PARATE | | | | culture | | Hospital | REPORT | | | + + + + + + + + + | Result panel 17 | + + + + + + + + + | | 2022-04-02 | [facility] | SEE SCANNED | (missing) | (missing) | | (unavailable | 17:35 | [facility] REPORT [facility] | [facility] | ) | | Hospital | | | | + + + + + + + + + | Result panel 18 | + + + + + + + + + | | 2022-04-02 | [facility] | SEE SCANNED | (missing) | (missing) | | (unavailable | 17:35 | [facility] REPORT [facility] | | | ) | | Hospital | | | | + + + + + + + + + | Result panel 19 | + + + + + + + + + | LOINC | 2022-04-02 | [facility] | SEE SCANNED | (missing) | (missing) | | attachment | 17:35 | [facility] | REPORT | | | | modifier | | Hospital | | | | | codes | | | | | | + + + + + + + + + | Result panel 20 | + + + + + +------+ + + | | 2022-04-02 | [facility] | 23 | (missing) | (missing) | | (unavailable | 18:00 | [facility] | | | | + + + +------+ + + + + | Result panel 21 | + + + + + +--------+ + + | | 2022-04-02 | [facility] | 24.5 | (missing) | (missing) | | (unavailable | 18:00 | [facility] | | | | + + + +--------+ + + + + | Result panel 22 | + + + + + +------+ + + | | 2022-04-02 | [facility] | 23 | (missing) | (missing) | | (unavailable | 18:00 | [facility] | | | | + + + +------+ + + + + | Result panel 23 | + + + + + +--------+ + + | | 2022-04-02 | [facility] | 24.5 | (missing) | (missing) | | (unavailable | 18:00 | [facility] | | | | + + + +--------+ + + + + | Result panel 24 | + + + + + +------+ + + | Serum or | 2022-04-02 | [facility] | 23 | (missing) | (missing) | | plasma | 18:00 | [facility] | | | | amylase | | Hospital | | | | | measurement | | | | | | + + + +------+ + + + + | Result panel 25 | + + + + + +--------+ + + | Serum or | 2022-04-02 | [facility] | 24.5 | (missing) | (missing) | | plasma | 18:00 | [facility] | | | | cardiac | | Hospital | | | | | troponin I | | | | | | | measurement | | | | | | | by high | | | | | | | senstivity | | | | | | | method | | | | | | | (mass/volume | | | | | | | ) | | | | | | + + + +--------+ + + + + | Result panel 26 | + + + + + +-------+ + + | Venous | 2022-04-03 | [facility] | 7.4 | (missing) | (missing) | | whole blood | 12:10 | [facility] | | | | pH | | Hospital | | | | | measurement | | | | | | + + + +-------+ + + + + | Result panel 27 | + + + + + +-------+ + + | | 2022-04-03 | [facility] | 7.4 | (missing) | (missing) | | (unavailable | 12:10 | [facility] | | [facility] | | | | + + + +-------+ + + + + | Result panel 28 | + + + + + +-------+ + + | | 2022-04-03 | [facility] | 7.4 | (missing) | (missing) | | (unavailable | 12:10 | [facility] ) | | [facility] | | | | + + + +-------+ + + + + | Result panel 29 | + + + + + +--------+ + + | Prothrombin | 2022-04-04 | [facility] | 14.7 | (missing) | (missing) | | time (PT) | 15:05 | [facility] | | | | | in platelet | | Hospital | | | | | poor plasma | | | | | | | by | | | | | | | coagulation | | | | | | | assay | | | | | | + + + +--------+ + + + + | Result panel 30 | + + + + + +--------+ + + | | 2022-04-04 | [facility] | 14.7 | (missing) | (missing) | | (unavailable | 15:05 | [facility] | | | | + + + +--------+ + + + + | Result panel 31 | + + + + + +--------+ + + | | 2022-04-04 | [facility] | 1.19 | (missing) | (missing) | | (unavailable | 15:05 | [facility] | [facility] | | | | + + + +--------+ + + + + | Result panel 32 | + + + + + +--------+ + + | INR in | 2022-04-04 | [facility] | 1.19 | (missing) | (missing) | | Platelet | 15:05 | [facility] | | | | | poor plasma | | Hospital | | | | | by | | | | | | | Coagulation | | | | | | | assay | | | | | | + + + +--------+ + + + + | Result panel 33 | + + + + + +--------+ + + | | 2022-04-04 | [facility] | 14.7 | (missing) | (missing) | | (unavailable | 15:05 | [facility] | | | | + + + +--------+ + + + + | Result panel 34 | + + + + + +--------+ + + | | 2022-04-04 | [facility] | 1.19 | (missing) | (missing) | | (unavailable | 15:05 | [facility] | [facility] | | | | + + + +--------+ + + + + | Result panel 35 | + + + + + +-----+ + + | Manual | 2022-04-05 | [facility] | 2 | (missing) | (missing) | | blood other | 06:20 | [facility] | | | | cells/100 | | Hospital | | | | | leukocytes | | | | | | + + + +-----+ + + + + | Result panel 36 | + + + + + +-----+ + + | | 2022-04-05 | [facility] | 2 | (missing) | (missing) | | (unavailable | 06:20 | [facility] | | [facility] | | | | + + + +-----+ + + + + | Result panel 37 | + + + + + +-----+ + + | | 2022-04-05 | [facility] | 2 | (missing) | (missing) | | (unavailable | 06:20 | [facility] | | [facility] | | | | + + + +-----+ + + + + | Result panel 38 | + + + + + + + + + | Blood | 2022-04-10 | [facility] | PRESENT | (missing) | (missing) | | lymphocytes | 06:30 | [facility] | | | | variant | | Hospital | | | | | detection by | | | | | | | light | | | | | | | microscopy | | | | | | + + + + + + + + + | Result panel 39 | + + + + + + + + + | | 2022-04-10 | [facility] | PRESENT | (missing) | (missing) | | (unavailable | 06:30 | [facility] ) | | [facility] | | | | + + + + + + + + + | Result panel 40 | + + + + + + + + + | | 2022-04-10 | [facility] | PRESENT | (missing) | (missing) | | (unavailable | 06:30 | [facility] | [facility] | | | | + + + + + + + + + | Result panel 41 | + + + + + +---------+ + + | | 2022-04-11 | [facility] | 41-50 | (missing) | (missing) | | (unavailable | 07:30 | [facility] ) [facility] | [facility] | | | | + + + +---------+ + + + + | Result panel 42 | + + + + + +--------+ + + | | 2022-04-11 | [facility] | 7-11 | (missing) | (missing) | | (unavailable | 07:30 | [facility] | [facility] | | | | + + + +--------+ + + + + | Result panel 43 | + + + + + +-----+ + + | | 2022-04-11 | [facility] | 0 | (missing) | (missing) | | (unavailable | 07:30 | [facility] | | | | + + + +-----+ + + + + | Result panel 44 | + + + + + + + + + | | 2022-04-11 | [facility] | NONE SEEN | (missing) | (missing) | | (unavailable | 07:30 | [facility] | | | | + + + + + + + + + | Result panel 45 | + + + + + +------+ + + | | 2022-04-11 | [facility] | 3+ | (missing) | (missing) | | (unavailable | 07:30 | [facility] | | | | + + + +------+ + + + + | Result panel 46 | + + + + + + + + + | | 2022-04-11 | [facility] | NONE SEEN | (missing) | (missing) | | (unavailable | 07:30 | [facility] | | | | + + + + + + + + + | Result panel 47 | + + + + + +-------+ + + | | 2022-04-11 | [facility] | Yes | (missing) | (missing) | | (unavailable | 07:30 | [facility] | | | | + + + +-------+ + + + + | Result panel 48 | + + + + + + + + + | | 2022-04-11 | [facility] | CLEAN CATCH | (missing) | (missing) | | (unavailable | 07:30 | [facility] | | | | + + + + + + + + + | Result panel 49 | + + + + + +---------+ + + | | 2022-04-11 | [facility] | 41-50 | (missing) | (missing) | | (unavailable | 07:30 | [facility] | | | | + + + +---------+ + + + + | Result panel 50 | + + + + + +--------+ + + | | 2022-04-11 | [facility] | 7-11 | (missing) | (missing) | | (unavailable | 07:30 | [facility] | | | | + + + +--------+ + + + + | Result panel 51 | + + + + + +-----+ + + | | 2022-04-11 | [facility] | 0 | (missing) | (missing) | | (unavailable | 07:30 | [facility] | | | | + + + +-----+ + + + + | Result panel 52 | + + + + + + + + + | | 2022-04-11 | [facility] | NONE SEEN | (missing) | (missing) | | (unavailable | 07:30 | [facility] | | | | + + + + + + + + + | Result panel 53 | + + + + + +------+ + + | | 2022-04-11 | [facility] | 3+ | (missing) | (missing) | | (unavailable | 07:30 | [facility] | | | | + + + +------+ + + + + | Result panel 54 | + + + + + + + + + | | 2022-04-11 | [facility] | NONE SEEN | (missing) | (missing) | | (unavailable | 07:30 | [facility] | | | | + + + + + + + + + | Result panel 55 | + + + + + +-------+ + + | | 2022-04-11 | [facility] | Yes | (missing) | (missing) | | (unavailable | 07:30 | [facility] | | | | + + + +-------+ + + + + | Result panel 56 | + + + + + + + + + | | 2022-04-11 | [facility] | CLEAN CATCH | (missing) | (missing) | | (unavailable | 07:30 | [facility] | | | | + + + + + + + + + | Result panel 57 | + + + + + +---------+ + + | Automated | 2022-04-11 | [facility] | 41-50 | (missing) | (missing) | | urine | 07:30 | [facility] | | | | sediment | | Hospital | | | | | erythrocyte | | | | | | | count by | | | | | | | microscopy | | | | | | | (number/high | | | | | | | power | | | | | | | field) | | | | | | + + + +---------+ + + + + | Result panel 58 | + + + + + +--------+ + + | Automated | 2022-04-11 | [facility] | 7-11 | (missing) | (missing) | | urine | 07:30 | [facility] | | | | sediment | | Hospital | | | | | leukocyte | | | | | | | count by | | | | | | | microscopy | | | | | | | (number/high | | | | | | | power | | | | | | | field) | | | | | | + + + +--------+ + + + + | Result panel 59 | + + + + + +-----+ + + | Automated | 2022-04-11 | [facility] | 0 | (missing) | (missing) | | urine | 07:30 | [facility] | | | | | sediment | | Hospital | | | | | epithelial | | | | | | | cell count | | | | | | | by | | | | | | | microscopy | | | | | | | (number/high | | | | | | | power | | | | | | | field) | | | | | | + + + +-----+ + + + + | Result panel 60 | + + + + + + + + + | Crystal | 2022-04-11 | [facility] | NONE SEEN | (missing) | (missing) | | typing in | 07:30 | [facility] | | | | urine | | Hospital | | | | | sediment by | | | | | | | light | | | | | | | microscopy | | | | | | + + + + + + + + + | Result panel 61 | + + + + + +------+ + + | Automated | 2022-04-11 | [facility] | 3+ | (missing) | (missing) | | urine | 07:30 | [facility] | | | | | sediment | | Hospital | | | | | bacteria | | | | | | | count by | | | | | | | microscopy | | | | | | | (number/high | | | | | | | power | | | | | | | field) | | | | | | + + + +------+ + + + + | Result panel 62 | + + + + + + + + + | Automated | 2022-04-11 | [facility] | NONE SEEN | (missing) | (missing) | | casts count | 07:30 | [facility] | | | | | in urine | | Hospital | | | | | sediment by | | | | | | | microscopy | | | | | | | low power | | | | | | | field | | | | | | | (number/area | | | | | | | ) | | | | | | + + + + + + + + + | Result panel 63 | + + + + + +-------+ + + | Reflexive | 2022-04-11 | [facility] | Yes | (missing) | (missing) | | urine | 07:30 | [facility] | | | | bacterial | | Hospital | | | | | culture | | | | | | + + + +-------+ + + + + | Result panel 64 | + + + + + + + + + | Urinalysis | 2022-04-11 | [facility] | CLEAN CATCH | (missing) | (missing) | | specimen | 07:30 | [facility] | | | | collection | | Hospital | | | | | method | | | | | | + + + + + + + + + | Result panel 65 | + + + + + + + + + | Bacterial | 2022-04-11 | [facility] | SEE | (missing) | (missing) | | urine | 07:30 | [facility]PARATE | | | | culture | | Hospital | REPORT | | | + + + + + + + + + | Result panel 66 | + + + + + + + + + | Bacterial | 2022-04-11 | [facility] | SEE | (missing) | (missing) | | blood | 08:00 | [facility]PARATE | | | | culture | | Hospital | REPORT | | | + + + + + + + + + | Result panel 67 | + + + + + + + + + | Gram stain | 2022-04-11 | [facility] | See scanned | (missing) | (missing) | | microscopy | 11:30 | [facility] report. | | | | | | Hospital | | | | + + + + + + + + + | Result panel 68 | + + + + + + + + + | Aerobic | 2022-04-11 | [facility] | SEE | (missing) | (missing) | | bacterial | 11:30 | [facility]PARATE | | | | culture | | Hospital | REPORT | | | + + + + + + + + + | Result panel 69 | + + + + + + + + + | Bacterial | 2022-04-11 | [facility] | SEE | (missing) | (missing) | | anaerobic | 11:30 | [facility]PARATE | | | | culture | | Hospital | REPORT | | | + + + + + + + + + | Result panel 70 | + + + + + + + + + | Gram stain | 2022-04-11 | [facility] | See scanned | (missing) | (missing) | | microscopy | 21:30 | [facility] report. | | | | | | Hospital | | | | + + + + + + + + + | Result panel 71 | + + + + + + + + + | Aerobic | 2022-04-11 | [facility] | SEE | (missing) | (missing) | | bacterial | 21:30 | [facility]PARATE | | | | culture | | Hospital | REPORT | | | + + + + + + + + + | Result panel 72 | + + + + + + + + + | Bacterial | 2022-04-11 | [facility] | SEE | (missing) | (missing) | | anaerobic | 21:30 | [facility]PARATE | | | | culture | | Hospital | REPORT | | | + + + + + + + + + | Result panel 73 | + + + + + + + + + | | 2022-04-12 | [facility] | DECREASED | (missing) | (missing) | | (unavailable | 00:10 | [facility] ) | | [facility] | | | | + + + + + + + + + | Result panel 74 | + + + + + + + + + | | 2022-04-12 | [facility] | DECREASED | (missing) | (missing) | | (unavailable | 00:10 | [facility] ) | | [facility] | | | | + + + + + + + + + | Result panel 75 | + + + + + + + + + | Blood | 2022-04-12 | [facility] | DECREASED | (missing) | (missing) | | platelet | 00:10 | [facility] | | | | | morphology | | Hospital | | | | | finding | | | | | | | identificati | | | | | | | on | | | | | | + + + + + + + + + | Result panel 76 | + + + + + +-------+---------+ + | | 2022-04-12 | [facility] | 0.3 | mg/dL | (missing) | | (unavailable | 05:15 | [facility] ) | | [facility] | | | | + + + +-------+---------+ + + + | Result panel 77 | + + + + + +-------+ + + | | 2022-04-12 | [facility] | 0.3 | (missing) | (missing) | | (unavailable | 05:15 | [facility] ) | | [facility] | | | | + + + +-------+ + + + + | Result panel 78 | + + + + + +-------+ + + | Serum or | 2022-04-12 | [facility] | 0.3 | (missing) | (missing) | | plasma | 05:15 | [facility] | | | | | direct | | Hospital | | | | | bilirubin | | | | | | | measurement | | | | | | | (mass/volume | | | | | | | ) | | | | | | + + + +-------+ + + + + | Result panel 79 | + + + + + +-------+---------+ + | | 2022-04-12 | [facility] | 0.3 | mg/dL | (missing) | | (unavailable | 05:15 | [facility] | | [facility] ) | | [facility] | | | | + + + +-------+---------+ + + + | Result panel 80 | + + + + + +-------+ + + | | 2022-04-12 | [facility] | 0.3 | (missing) | (missing) | | (unavailable | 05:15 | [facility] | | [facility] ) | | [facility] | | | | + + + +-------+ + + + + | Result panel 81 | + + + + + +-------+ + + | Serum or | 2022-04-12 | [facility] | 0.3 | (missing) | (missing) | | plasma | 05:15 | [facility] | | | | | indirect | | Hospital | | | | | bilirubin | | | | | | | measurement | | | | | | | (mass/volume | | | | | | | ) | | | | | | + + + +-------+ + + + + | Result panel 82 | + + + + + +--------+ + + | Blood pH | 2022-04-13 | [facility] | 7.44 | (missing) | (missing) | | | 06:11 | [facility] | | [facility] | | | | + + + +--------+ + + + + | Result panel 83 | + + + + + +--------+ + + | Blood | 2022-04-13 | [facility] | 33.5 | (missing) | (missing) | | partial | 06:11 | [facility] | | | | | pressure of | | Hospital | | | | | carbon | | | | | | | dioxide | | | | | | | measurement | | | | | | + + + +--------+ + + + + | Result panel 84 | + + + + + +-------+ + + | Blood | 2022-04-13 | [facility] | 106 | (missing) | (missing) | | partial | 06:11 | [facility] | | | | pressure of | | [facility] | | | | | oxygen | | | | | | | measurement | | | | | | + + + +-------+ + + + + | Result panel 85 | + + + + + +--------+ + + | Blood | 2022-04-13 | [facility] | 22.4 | (missing) | (missing) | | bicarbonate | 06:11 | [facility] | | | | | measurement | | [facility] | | | | | (moles/volum | | | | | | | e) | | | | | | + + + +--------+ + + + + | Result panel 86 | + + + + + +--------+ + + | Blood base | 2022-04-13 | [facility] | -0.7 | (missing) | (missing) | | excess by | 06:11 | [facility] | | | | | calculation | | [facility] | | | | + + + +--------+ + + + + | Result panel 87 | + + + + + +--------+ + + | Whole blood | 2022-04-13 | [facility] | 97.6 | (missing) | (missing) | | oxygen | 06:11 | [facility] | | | | | saturation | | [facility] | | | | | measurement | | | | | | + + + +--------+ + + + + | Result panel 88 | + + + + + +--------+ + + | | 2022-04-13 | [facility] | 7.44 | (missing) | (missing) | | (unavailable | 06:11 | [facility] | [facility] | | | | + + + +--------+ + + + + | Result panel 89 | + + + + + +--------+ + + | | 2022-04-13 | [facility] | 33.5 | (missing) | (missing) | | (unavailable | 06:11 | [facility] | | | | + + + +--------+ + + + + | Result panel 90 | + + + + + +-------+ + + | | 2022-04-13 | [facility] | 106 | (missing) | (missing) | | (unavailable | 06:11 | [facility] | | | | + + + +-------+ + + + + | Result panel 91 | + + + + + +--------+ + + | | 2022-04-13 | [facility] | 22.4 | (missing) | (missing) | | (unavailable | 06:11 | [facility] | | | | + + + +--------+ + + + + | Result panel 92 | + + + + + +--------+ + + | | 2022-04-13 | [facility] | -0.7 | (missing) | (missing) | | (unavailable | 06:11 | [facility] | | | | + + + +--------+ + + + + | Result panel 93 | + + + + + +--------+ + + | | 2022-04-13 | [facility] | 97.6 | (missing) | (missing) | | (unavailable | 06:11 | [facility] | | | | + + + +--------+ + + + + | Result panel 94 | + + + + + +-------+ + + | Oxygen | 2022-04-13 | [facility] | 25% | (missing) | (missing) | | therapy | 06:11 | [facility] | | | | [Minimum | | Hospital | | | | | Data Set] | | | | | | + + + +-------+ + + + + | Result panel 95 | + + + + + +-------+ + + | | 2022-04-13 | [facility] | 25% | (missing) | (missing) | | (unavailable | 06:11 | [facility] ) | | [facility] | | | | + + + +-------+ + + + + | Result panel 96 | + + + + + +--------+ + + | | 2022-04-13 | [facility] | 23.5 | (missing) | (missing) | | (unavailable | 06:11 | [facility] | [facility] | | | | + + + +--------+ + + + + | Result panel 97 | + + + + + +-------+---------+ + | | 2022-04-13 | [facility] | 4.7 | mg/dL | (missing) | | (unavailable | 06:11 | [facility] | | | | + + + +-------+---------+ + + + | Result panel 98 | + + + + + +--------+ + + | Blood | 2022-04-13 | [facility] | 23.5 | (missing) | (missing) | | carbon | 06:11 | [facility] | | | | | dioxide, | | [facility] | | | | | total | | | | | | | measurement | | | | | | | (moles/volum | | | | | | | e) | | | | | | + + + +--------+ + + + + | Result panel 99 | + + + + + +-------+ + + | Serum or | 2022-04-13 | [facility] | 4.7 | (missing) | (missing) | | plasma | 06:11 | [facility] | | | | phosphate | | [facility] | | | | | measurement | | | | | | | (mass/volume | | | | | | | ) | | | | | | + + + +-------+ + + + + | Result panel 100 | + + + + + +--------+ + + | | 2022-04-13 | [facility] | 7.44 | (missing) | (missing) | | (unavailable | 06:11 | [facility] | | | | + + + +--------+ + + + + | Result panel 101 | + + + + + +--------+ + + | | 2022-04-13 | [facility] | 33.5 | (missing) | (missing) | | (unavailable | 06:11 | [facility] | | | | + + + +--------+ + + + + | Result panel 102 | + + + + + +-------+ + + | | 2022-04-13 | [facility] | 106 | (missing) | (missing) | | (unavailable | 06:11 | [facility] | | | | + + + +-------+ + + + + | Result panel 103 | + + + + + +--------+ + + | | 2022-04-13 | [facility] | 22.4 | (missing) | (missing) | | (unavailable | 06:11 | [facility] | | | | + + + +--------+ + + + + | Result panel 104 | + + + + + +--------+ + + | | 2022-04-13 | [facility] | -0.7 | (missing) | (missing) | | (unavailable | 06:11 | [facility] | | | | + + + +--------+ + + + + | Result panel 105 | + + + + + +--------+ + + | | 2022-04-13 | [facility] | 97.6 | (missing) | (missing) | | (unavailable | 06:11 | [facility] | | | | + + + +--------+ + + + + | Result panel 106 | + + + + + +-------+ + + | | 2022-04-13 | [facility] | 25% | (missing) | (missing) | | (unavailable | 06:11 | [facility] | | | | + + + +-------+ + + + + | Result panel 107 | + + + + + +--------+ + + | | 2022-04-13 | [facility] | 23.5 | (missing) | (missing) | | (unavailable | 06:11 | [facility] | | | | + + + +--------+ + + + + | Result panel 108 | + + + + + +-------+---------+ + | | 2022-04-13 | [facility] | 4.7 | mg/dL | (missing) | | (unavailable | 06:11 | [facility] | | | | + + + +-------+---------+ + + + | Result panel 109 | + + + + + + + + + | Blood | 2022-04-13 | [facility] | LEFT SHIFT | (missing) | (missing) | | leukocyte | 18:27 | [facility] | | | | morphology | | [facility] | | | | | finding | | | | | | | identificati | | | | | | | on | | | | | | + + + + + + + + + | Result panel 110 | + + + + + + + + + | | 2022-04-13 | [facility] | LEFT SHIFT | (missing) | (missing) | | (unavailable | 18:27 | [facility] | | | | + + + + + + + + + | Result panel 111 | + + + + + + + + + | | 2022-04-13 | [facility] | LEFT SHIFT | (missing) | (missing) | | (unavailable | 18:27 | [facility] | | | | + + + + + + + + + | Result panel 112 | + + + + + +-----+ + + | | 2022-04-16 | [facility] | 1 | (missing) | (missing) | | (unavailable | 05:43 | [facility] | | | | + + + +-----+ + + + + | Result panel 113 | + + + + + +-----+ + + | | 2022-04-16 | [facility] | 1 | (missing) | (missing) | | (unavailable | 05:43 | [facility] | | | | + + + +-----+ + + + + | Result panel 114 | + + + + + +-----+ + + | Nucleated | 2022-04-16 | [facility] | 1 | (missing) | (missing) | | erythrocytes | 05:43 | [facility] | | | | /100 | | [facility] | | | | | leukocytes | | | | | | | [Ratio] in | | | | | | | Blood by | | | | | | | Manual count | | | | | | | | | | | | | + + + +-----+ + + + + | Result panel 115 | + + + + + + + + + | Smudge cell | 2022-04-17 | [facility] | PRESENT | (missing) | (missing) | | detection | 05:20 | [facility] | | | | + + + + + + + + + | Result panel 116 | + + + + + + + + + | | 2022-04-17 | [facility] | PRESENT | (missing) | (missing) | | (unavailable | 05:20 | [facility] | | | | + + + + + + + + + | Result panel 117 | + + + + + + + + + | | 2022-04-17 | [facility] | PRESENT | (missing) | (missing) | | (unavailable | 05:20 | [facility] | | | | + + + + + + + + + | Result panel 118 | + + + + + + + + + | | 2022-04-19 | [facility] | PRESENT | (missing) | (missing) | | (unavailable | 06:18 | [facility] | | | | + + + + + + + + + | Result panel 119 | + + + + + + + + + | | 2022-04-19 | [facility] | PRESENT | (missing) | (missing) | | (unavailable | 06:18 | [facility] | | | | + + + + + + + + + | Result panel 120 | + + + + + + + + + | Toxic | 2022-04-19 | [facility] | PRESENT | (missing) | (missing) | | leukocyte | 06:18 | [facility] | | | | granulation | | Hospital | | | | | detection | | | | | | + + + + + + + + + | Result panel 121 | + + + + + + + + + | Blood | 2022-04-19 | [facility] | PRESENT | (missing) | (missing) | | vacuolated | 06:18 | [facility] | | | | neutrophils | | Hospital | | | | | detection by | | | | | | | light | | | | | | | microscopy | | | | | | + + + + + + + + + | Result panel 122 | + + + + + + + + + | | 2022-04-19 | [facility] | PRESENT | (missing) | (missing) | | (unavailable | 06:18 | [facility] | | | | + + + + + + + + + | Result panel 123 | + + + + + + + + + | | 2022-04-19 | [facility] | PRESENT | (missing) | (missing) | | (unavailable | 06:18 | [facility] | | | | + + + + + + + + + | Result panel 124 | + + + + + +--------+ + + | Activated | 2022-04-20 | [facility] | 29.2 | (missing) | (missing) | | partial | 05:30 | [facility] | | | | thromboplast | | Hospital | | | | | in time | | | | | | | (aPTT) in | | | | | | | platelet | | | | | | | poor plasma | | | | | | | by | | | | | | | coagulation | | | | | | | assay | | | | | | + + + +--------+ + + + + | Result panel 125 | + + + + + +------+ + + | Serum or | 2022-04-20 | [facility] | 86 | (missing) | (missing) | | plasma | 05:30 | [facility] | | | | cholesterol | | [facility] | | | | | measurement | | | | | | | (mass/volume | | | | | | | ) | | | | | | + + + +------+ + + + + | Result panel 126 | + + + + + +------+ + + | Serum or | 2022-04-20 | [facility] | 23 | (missing) | (missing) | | plasma | 05:30 | [facility] | | | | [facility] | | [facility] | | | | | in HDL | | | | | | | measurement | | | | | | | (mass/volume | | | | | | | ) | | | | | | + + + +------+ + + + + | Result panel 127 | + + + + + +---------+ + + | Serum or | 2022-04-20 | [facility] | 63.00 | (missing) | (missing) | | plasma | 05:30 | [facility] | | | | cholesterol | | [facility] | | | | | non HDL | | | | | | | measurement | | | | | | | (mass/volume | | | | | | | ) | | | | | | + + + +---------+ + + + + | Result panel 128 | + + + + + +------+ + + | Serum or | 2022-04-20 | [facility] | 29 | (missing) | (missing) | | plasma | 05:30 | [facility] | | | | [facility] | | [facility] | | | | | in LDL | | | | | | | measurement | | | | | | | by | | | | | | | calculation | | | | | | | (mass/volume | | | | | | | ) | | | | | | + + + +------+ + + + + | Result panel 129 | + + + + + +-------+ + + | Serum or | 2022-04-20 | [facility] | 3.7 | (missing) | (missing) | | plasma total | 05:30 | [facility] | [facility] | | | | | cholesterol/ | | | | | | | cholesterol | | | | | | | in HDL mass | | | | | | | ratio | | | | | | + + + +-------+ + + + + | Result panel 130 | + + + + + +------+ + + | Serum or | 2022-04-20 | [facility] | 34 | (missing) | (missing) | | plasma | 05:30 | [facility] | | | | [facility] | | [facility] | | | | | in VLDL | | | | | | | measurement | | | | | | | by | | | | | | | calculation | | | | | | | (mass/volume | | | | | | | ) | | | | | | + + + +------+ + + + + | Result panel 131 | + + + + + +-------+ + + | Serum or | 2022-04-20 | [facility] | 172 | (missing) | (missing) | | plasma | 05:30 | [facility] | | | | triglyceride | | [facility] | | | | | measurement | | | | | | | | | | | | | | (mass/volume | | | | | | | ) | | | | | | + + + +-------+ + + + + | Result panel 132 | + + + + + +--------+ + + | | 2022-04-20 | [facility] | 29.2 | (missing) | (missing) | | (unavailable | 05:30 | [facility] | | | | + + + +--------+ + + + + | Result panel 133 | + + + + + +------+---------+ + | | 2022-04-20 | [facility] | 86 | mg/dL | (missing) | | (unavailable | 05:30 | [facility] | | | | + + + +------+---------+ + + + | Result panel 134 | + + + + + +------+ + + | | 2022-04-20 | [facility] | 23 | (missing) | (missing) | | (unavailable | 05:30 | [facility] | | | | + + + +------+ + + + + | Result panel 135 | + + + + + +---------+ + + | | 2022-04-20 | [facility] | 63.00 | (missing) | (missing) | | (unavailable | 05:30 | [facility] | | | | + + + +---------+ + + + + | Result panel 136 | + + + + + +------+---------+ + | | 2022-04-20 | [facility] | 29 | mg/dL | (missing) | | (unavailable | 05:30 | [facility] | | | | + + + +------+---------+ + + + | Result panel 137 | + + + + + +-------+ + + | | 2022-04-20 | [facility] | 3.7 | (missing) | (missing) | | (unavailable | 05:30 | [facility] | | | | + + + +-------+ + + + + | Result panel 138 | + + + + + +------+ + + | | 2022-04-20 | [facility] | 34 | (missing) | (missing) | | (unavailable | 05:30 | [facility] | | | | + + + +------+ + + + + | Result panel 139 | + + + + + +-------+ + + | | 2022-04-20 | [facility] | 172 | (missing) | (missing) | | (unavailable | 05:30 | [facility] | | | | + + + +-------+ + + + + | Result panel 140 | + + + + + +--------+ + + | | 2022-04-20 | [facility] | 29.2 | (missing) | (missing) | | (unavailable | 05:30 | [facility] | | | | + + + +--------+ + + + + | Result panel 141 | + + + + + +------+---------+ + | | 2022-04-20 | [facility] | 86 | mg/dL | (missing) | | (unavailable | 05:30 | [facility] | | | | + + + +------+---------+ + + + | Result panel 142 | + + + + + +------+ + + | | 2022-04-20 | [facility] | 23 | (missing) | (missing) | | (unavailable | 05:30 | [facility] | | | | + + + +------+ + + + + | Result panel 143 | + + + + + +---------+ + + | | 2022-04-20 | [facility] | 63.00 | (missing) | (missing) | | (unavailable | 05:30 | [facility] | | | | + + + +---------+ + + + + | Result panel 144 | + + + + + +------+---------+ + | | 2022-04-20 | [facility] | 29 | mg/dL | (missing) | | (unavailable | 05:30 | [facility] | | | | + + + +------+---------+ + + + | Result panel 145 | + + + + + +-------+ + + | | 2022-04-20 | [facility] | 3.7 | (missing) | (missing) | | (unavailable | 05:30 | [facility] | | | | + + + +-------+ + + + + | Result panel 146 | + + + + + +------+ + + | | 2022-04-20 | [facility] | 34 | (missing) | (missing) | | (unavailable | 05:30 | [facility] | | | | + + + +------+ + + + + | Result panel 147 | + + + + + +-------+ + + | | 2022-04-20 | [facility] | 172 | (missing) | (missing) | | (unavailable | 05:30 | [facility] | | | | + + + +-------+ + + + + | Result panel 148 | + + + + + +-----+ + + | | 2022-04-22 | [facility] | 5 | (missing) | (missing) | | (unavailable | 05:40 | [facility] | | | | + + + +-----+ + + + + | Result panel 149 | + + + + + + + + + | | 2022-04-22 | [facility] | PRESENT | (missing) | (missing) | | (unavailable | 05:40 | [facility] | | | | + + + + + + + + + | Result panel 150 | + + + + + + + + + | | 2022-04-22 | [facility] | PRESENT | (missing) | (missing) | | (unavailable | 05:40 | [facility] | | | | + + + + + + + + + | Result panel 151 | + + + + + + + + + | | 2022-04-22 | [facility] | PRESENT | (missing) | (missing) | | (unavailable | 05:40 | [facility] | | | | + + + + + + + + + | Result panel 152 | + + + + + + + + + | | 2022-04-22 | [facility] | PRESENT | (missing) | (missing) | | (unavailable | 05:40 | [facility] | | | | + + + + + + + + + | Result panel 153 | + + + + + +-----+ + + | Manual | 2022-04-22 | [facility] | 5 | (missing) | (missing) | | blood band | 05:40 | [facility] | | | | neutrophils | | [facility] | | | | | form/100 | | | | | | | leukocytes | | | | | | + + + +-----+ + + + + | Result panel 154 | + + + + + + + + + | Blood | 2022-04-22 | [facility] | PRESENT | (missing) | (missing) | | anisocytosis | 05:40 | [facility] | | | | | detection | | Hospital | | | | | by light | | | | | | | microscopy | | | | | | + + + + + + + + + | Result panel 155 | + + + + + + + + + | Blood | 2022-04-22 | [facility] | PRESENT | (missing) | (missing) | | polychromasi | 05:40 | [facility] | | | | a detection | | Hospital | | | | | by light | | | | | | | microscopy | | | | | | + + + + + + + + + | Result panel 156 | + + + + + + + + + | | 2022-04-22 | [facility] | PRESENT | (missing) | (missing) | | Hypochromati | 05:40 | [facility] | | | | | c red blood | | Hospital | | | | | cell | | | | | | | detection | | | | | | + + + + + + + + + | Result panel 157 | + + + + + + + + + | Blood | 2022-04-22 | [facility] | PRESENT | (missing) | (missing) | | microcytes | 05:40 | [facility] | | | | | detection by | | Hospital | | | | | light | | | | | | | microscopy | | | | | | + + + + + + + + + | Result panel 158 | + + + + + +-----+ + + | | 2022-04-22 | [facility] | 5 | (missing) | (missing) | | (unavailable | 05:40 | [facility] ) | | [facility] | | | | + + + +-----+ + + + + | Result panel 159 | + + + + + + + + + | | 2022-04-22 | [facility] | PRESENT | (missing) | (missing) | | (unavailable | 05:40 | [facility] | | | | + + + + + + + + + | Result panel 160 | + + + + + + + + + | | 2022-04-22 | [facility] | PRESENT | (missing) | (missing) | | (unavailable | 05:40 | [facility] | [facility] | | | | + + + + + + + + + | Result panel 161 | + + + + + + + + + | | 2022-04-22 | [facility] | PRESENT | (missing) | (missing) | | (unavailable | 05:40 | [facility] | | | | + + + + + + + + + | Result panel 162 | + + + + + + + + + | | 2022-04-22 | [facility] | PRESENT | (missing) | (missing) | | (unavailable | 05:40 | [facility] | | | | + + + + + + + + + | Result panel 163 | + + + + + + + + + | Num units | 2022-04-28 | [facility] | | (missing) | (missing) | | trans packed | 19:25 | [facility] | [id number] | | | | RBC | | Hospital | 005 | | | + + + + + + + + + | Result panel 164 | + + + + + + + + + | Num units | 2022-04-28 | [facility] | | (missing) | (missing) | | trans packed | 19:25 | [facility] | [phone] | | | | RBC | | Hospital | 00I | | | + + + + + + + + + | Result panel 165 | + + + + + +------+ + + | | 2022-05-05 | [facility] | 78 | (missing) | (missing) | | (unavailable | 08:08 | [facility] ) | | [facility] | | | | + + + +------+ + + + + | Result panel 166 | + + + + + +-----+ + + | | 2022-05-05 | [facility] | 8 | (missing) | (missing) | | (unavailable | 08:08 | [facility] | | | | + + + +-----+ + + + + | Result panel 167 | + + + + + +-----+ + + | | 2022-05-05 | [facility] | 7 | (missing) | (missing) | | (unavailable | 08:08 | [facility] | | | | + + + +-----+ + + + + | Result panel 168 | + + + + + +-----+ + + | | 2022-05-05 | [facility] | 5 | (missing) | (missing) | | (unavailable | 08:08 | [facility] ) | | [facility] | | | | + + + +-----+ + + + + | Result panel 169 | + + + + + +-----+ + + | | 2022-05-05 | [facility] | 2 | (missing) | (missing) | | (unavailable | 08:08 | [facility] | | | | + + + +-----+ + + + + | Result panel 170 | + + + + + +-------+---------+ + | | 2022-05-05 | [facility] | 3.6 | mg/dL | (missing) | | (unavailable | 08:08 | [facility] | | | | + + + +-------+---------+ + + + | Result panel 171 | + + + + + +------+ + + | Manual | 2022-05-05 | [facility] | 78 | (missing) | (missing) | | blood | 08:08 | [facility] | | | | segmented | | Hospital | | | | | neutrophils/ | | | | | | | 100 | | | | | | | leukocytes | | | | | | + + + +------+ + + + + | Result panel 172 | + + + + + +-----+ + + | Manual | 2022-05-05 | [facility] | 8 | (missing) | (missing) | | blood | 08:08 | [facility] | | | | lymphocytes/ | | Hospital | | | | | 100 | | | | | | | leukocytes | | | | | | + + + +-----+ + + + + | Result panel 173 | + + + + + +-----+ + + | Manual | 2022-05-05 | [facility] | 7 | (missing) | (missing) | | blood | 08:08 | [facility] | | | | monocytes/10 | | Hospital | | | | | 0 leukocytes | | | | | | | | | | | | | + + + +-----+ + + + + | Result panel 174 | + + + + + +-----+ + + | Manual | 2022-05-05 | [facility] | 5 | (missing) | (missing) | | blood | 08:08 | [facility] | | | | eosinophils/ | | Hospital | | | | | 100 | | | | | | | leukocytes | | | | | | + + + +-----+ + + + + | Result panel 175 | + + + + + +-----+ + + | Manual | 2022-05-05 | [facility] | 2 | (missing) | (missing) | | blood | 08:08 | [facility] | | | | basophils/10 | | Hospital | | | | | 0 leukocytes | | | | | | | | | | | | | + + + +-----+ + + + + | Result panel 176 | + + + + + +-------+ + + | CRP SerPl | 2022-05-05 | [facility] | 3.6 | (missing) | (missing) | | Ql | 08:08 | [facility] | | [facility] | | | | + + + +-------+ + + + + | Result panel 177 | + + + + + +------+ + + | | 2022-05-05 | [facility] | 78 | (missing) | (missing) | | (unavailable | 08:08 | [facility] ) | | [facility] | | | | + + + +------+ + + + + | Result panel 178 | + + + + + +-----+ + + | | 2022-05-05 | [facility] | 8 | (missing) | (missing) | | (unavailable | 08:08 | [facility] | [facility] | | | | + + + +-----+ + + + + | Result panel 179 | + + + + + +-----+ + + | | 2022-05-05 | [facility] | 7 | (missing) | (missing) | | (unavailable | 08:08 | [facility] ) | [facility] | | | | + + + +-----+ + + + + | Result panel 180 | + + + + + +-----+ + + | | 2022-05-05 | [facility] | 5 | (missing) | (missing) | | (unavailable | 08:08 | [facility] | [facility] | | | | + + + +-----+ + + + + | Result panel 181 | + + + + + +-----+ + + | | 2022-05-05 | [facility] | 2 | (missing) | (missing) | | (unavailable | 08:08 | [facility] ) | | [facility] | | | | + + + +-----+ + + + + | Result panel 182 | + + + + + +-------+---------+ + | | 2022-05-05 | [facility] | 3.6 | mg/dL | (missing) | | (unavailable | 08:08 | [facility] ) | | [facility] | | | | + + + +-------+---------+ + + + | Result panel 183 | + + + + + + + + + | Color of | 2022-05-11 | [facility] | YELLOW | (missing) | (missing) | | Urine by | 11:07 | [facility] | | | | Auto | | Hospital | | | | + + + + + + + + + | Result panel 184 | + + + + + +---------+ + + | Character | 2022-05-11 | [facility] | CLEAR | (missing) | (missing) | | of Urine | 11:07 | [facility] | | | [facility] | | | | + + + +---------+ + + + + | Result panel 185 | + + + + + +---------+ + + | Glucose | 2022-05-11 | [facility] | SMALL | (missing) | (missing) | | [Presence] | 11:07 | [facility] | | | | | in Urine by | | Hospital | | | | | Test strip | | | | | | + + + +---------+ + + + + | Result panel 186 | + + + + + + + + + | Urine total | 2022-05-11 | [facility] | NEGATIVE | (missing) | (missing) | | bilirubin | 11:07 | [facility] | | | | | detection by | | Hospital | | | | | test strip | | | | | | + + + + + + + + + | Result panel 187 | + + + + + + + + + | Urine | 2022-05-11 | [facility] | NEGATIVE | (missing) | (missing) | | ketones | 11:07 | [facility] | | | | | detection by | | Hospital | | | | | test strip | | | | | | + + + + + + + + + | Result panel 188 | + + + + + +---------+ + + | Specific | 2022-05-11 | [facility] | 1.010 | (missing) | (missing) | | gravity ur | 11:07 | [facility] | | | | dipstick | | Hospital | | | | + + + +---------+ + + + + | Result panel 189 | + + + + + + + + + | Urine | 2022-05-11 | [facility] | NEGATIVE | (missing) | (missing) | | hemoglobin | 11:07 | [facility] | | | | detection by | | Hospital | | | | | test strip | | | | | | + + + + + + + + + | Result panel 190 | + + + + + +-------+ + + | Urine pH | 2022-05-11 | [facility] | 5.5 | (missing) | (missing) | | measurement | 11:07 | [facility] | | | | | by test | | Hospital | | | | | strip | | | | | | + + + +-------+ + + + + | Result panel 191 | + + + + + + + + + | Protein | 2022-05-11 | [facility] | NEGATIVE | (missing) | (missing) | | urine test | 11:07 | [facility] | | | | | strip | | Hospital | | | | + + + + + + + + + | Result panel 192 | + + + + + + + + + | | 2022-05-11 | [facility] | NORMAL | (missing) | (missing) | | Urobilinogen | 11:07 | [facility] | [facility] | | | | | [Mass/volume | | | | | | | ] in Urine | | | | | | | by Test | | | | | | | strip | | | | | | + + + + + + + + + | Result panel 193 | + + + + + + + + + | Urine | 2022-05-11 | [facility] | NEGATIVE | (missing) | (missing) | | nitrite | 11:07 | [facility] | | | | detection by | | Hospital | | | | | test strip | | | | | | + + + + + + + + + | Result panel 194 | + + + + + + + + + | Urine | 2022-05-11 | [facility] | NEGATIVE | (missing) | (missing) | | leukocyte | 11:07 | [facility] | | | | | esterase | | Hospital | | | | | detection by | | | | | | | dipstick | | | | | | + + + + + + + + + | Result panel 195 | + + + + + +-------+ + + | | 2022-05-11 | [facility] | 1.1 | (missing) | (missing) | | (unavailable | 14:02 | [facility] | | | | + + + +-------+ + + + + | Result panel 196 | + + + + + +-------+ + + | | 2022-05-11 | [facility] | 1.1 | (missing) | (missing) | | (unavailable | 14:02 | [facility] | | | | + + + +-------+ + + + + | Result panel 197 | + + + + + +-------+ + + | | 2022-05-11 | [facility] | 1.1 | (missing) | (missing) | | (unavailable | 14:02 | [facility] | | | | + + + +-------+ + + + + | Result panel 198 | + + + + + +-------+ + + | Serum or | 2022-05-11 | [facility] | 1.1 | (missing) | (missing) | | plasma | 14:02 | [facility] | | | | | lactate | | [facility] | | | | | measurement | | | | | | | (moles/volum | | | | | | | e) | | | | | | + + + +-------+ + + + + | Result panel 199 | + + + + + + + + + | | 2022-05-12 | [facility] | NEGATIVE | (missing) | (missing) | | (unavailable | 04:20 | [facility] | | | | + + + + + + + + + | Result panel 200 | + + + + + + + + + | | 2022-05-12 | [facility] | NEGATIVE | (missing) | (missing) | | (unavailable | 04:20 | [facility] | | | | + + + + + + + + + | Result panel 201 | + + + + + + + + + | | 2022-05-12 | [facility] | NEGATIVE | (missing) | (missing) | | (unavailable | 04:20 | [facility] | | | | + + + + + + + + + | Result panel 202 | + + + + + + + + + | | 2022-05-12 | [facility] | NEGATIVE | (missing) | (missing) | | (unavailable | 04:20 | [facility] | | | | + + + + + + + + + | Result panel 203 | + + + + + + + + + | | 2022-05-12 | [facility] | NEGATIVE | (missing) | (missing) | | (unavailable | 04:20 | [facility] | | | | + + + + + + + + + | Result panel 204 | + + + + + + + + + | | 2022-05-12 | [facility] | NEGATIVE | (missing) | (missing) | | (unavailable | 04:20 | [facility] | | | | + + + + + + + + + | Result panel 205 | + + + + + + + + + | | 2022-05-12 | [facility] | NEGATIVE | (missing) | (missing) | | (unavailable | 04:20 | [facility] | | | | + + + + + + + + + | Result panel 206 | + + + + + + + + + | | 2022-05-12 | [facility] | NEGATIVE | (missing) | (missing) | | (unavailable | 04:20 | [facility] | | | | + + + + + + + + + | Result panel 207 | + + + + + + + + + | | 2022-05-12 | [facility] | NEGATIVE | (missing) | (missing) | | (unavailable | 04:20 | [facility] | | | | + + + + + + + + + | Result panel 208 | + + + + + + + + + | | 2022-05-12 | [facility] | NEGATIVE | (missing) | (missing) | | (unavailable | 04:20 | [facility] | | | | + + + + + + + + + | Result panel 209 | + + + + + + + + + | | 2022-05-12 | [facility] | NEGATIVE | (missing) | (missing) | | (unavailable | 04:20 | [facility] | | | | + + + + + + + + + | Result panel 210 | + + + + + + + + + | | 2022-05-12 | [facility] | NEGATIVE | (missing) | (missing) | | (unavailable | 04:20 | [facility] | | | | + + + + + + + + + | Result panel 211 | + + + + + + + + + | Respiratory | 2022-05-12 | [facility] | NEGATIVE | (missing) | (missing) | | specimen | 04:20 | [facility] | | | | | 2018 novel | | [facility] | | | | | coronavirus | | | | | | | RNA | | | | | | | detection | | | | | | + + + + + + + + + | Result panel 212 | + + + + + + + + + | Influenza | 2022-05-12 | [facility] | NEGATIVE | (missing) | (missing) | | virus A RNA | 04:20 | [facility] | | | | | in | | | | | | | Respiratory | | | | | | | specimen by | | | | | | | JEFFERY | | | | | | | withprobe | | | | | | | detection | | | | | | + + + + + + + + + | Result panel 213 | + + + + + + + + + | Influenza | 2022-05-12 | [facility] | NEGATIVE | (missing) | (missing) | | virus B RNA | 04:20 | [facility] | | | | | in | | | | | | | Respiratory | | | | | | | specimen by | | | | | | | JEFFERY | | | | | | | withprobe | | | | | | | detection | | | | | | + + + + + + + + + | Result panel 214 | + + + + + + + + + | Respiratory | 2022-05-12 | [facility] | NEGATIVE | (missing) | (missing) | | syncytial | 04:20 | [facility] | | | | | virus (RSV) | | Hospital | | | | | RNA | | | | | | | detection by | | | | | | | probe and | | | | | | | target | | | | | | | amplificatio | | | | | | | n method in | | | | | | | culture | | | | | | | isolate | | | | | | + + + + + + + + + | Result panel 215 | + + + + + +-------+---------+ + | | 2022-05-12 | [facility] | 2.0 | mg/dL | (missing) | | (unavailable | 05:23 | [facility] | | | | + + + +-------+---------+ + + + | Result panel 216 | + + + + + +-------+---------+ + | | 2022-05-12 | [facility] | 2.0 | mg/dL | (missing) | | (unavailable | 05:23 | [facility] | | | | + + + +-------+---------+ + + + | Result panel 217 | + + + + + +-------+---------+ + | | 2022-05-12 | [facility] | 2.0 | mg/dL | (missing) | | (unavailable | 05:23 | [facility] | | | | + + + +-------+---------+ + + + | Result panel 218 | + + + + + +-------+ + + | Serum or | 2022-05-12 | [facility] | 2.0 | (missing) | (missing) | | plasma | 05:23 | [facility] | | | | magnesium | | Hospital | | | | | measurement | | | | | | | (mass/volume | | | | | | | ) | | | | | | + + + +-------+ + + + + | Result panel 219 | + + + + + + + + + | Gram stain | 2022-05-12 | [facility] | See scanned | (missing) | (missing) | | microscopy | 13:41 | [facility] report. | | | | | | [facility] | | | | + + + + + + + + + | Result panel 220 | + + + + + + + + + | Aerobic | 2022-05-12 | [facility] | SEE | (missing) | (missing) | | bacterial | 13:41 | [facility]PAR[facility] | | | | culture | | [facility] | REPORT | | | + + + + + + + + + | Result panel 221 | + + + + + + + + + | Bacterial | 2022-05-12 | [facility] | SEE | (missing) | (missing) | | anaerobic | 13:41 | [facility] | | | | culture | | [facility] | REPORT | | | + + + + + + + + + | Result panel 222 | + + + + + +--------+ + + | Prealb | 2022-05-14 | [facility] | 16.0 | (missing) | (missing) | | SerPl-mCnc | 05:20 | [facility] | | | | + + + +--------+ + + + + | Result panel 223 | + + + + + +-------+ + + | Serum or | 2022-05-14 | [facility] | 502 | (missing) | (missing) | | plasma | 05:20 | [facility] | | | | lipase | | Hospital | | | | | measurement | | | | | | | (enzymatic | | | | | | | activity/vol | | | | | | | ume) | | | | | | + + + +-------+ + + + + | Result panel 224 | + + + + + +--------+ + + | | 2022-05-14 | [facility] | 16.0 | (missing) | (missing) | | (unavailable | 05:20 | [facility] | | | | + + + +--------+ + + + + | Result panel 225 | + + + + + +--------+ + + | | 2022-05-14 | [facility] | 16.0 | (missing) | (missing) | | (unavailable | 05:20 | [facility] | | | | + + + +--------+ + + + + | Result panel 226 | + + + + + +--------+ + + | | 2022-05-14 | [facility] | 16.0 | (missing) | (missing) | | (unavailable | 05:20 | [facility] | | | | + + + +--------+ + + + + | Result panel 227 | + + + + + + + + + | Immediate | 2022-05-14 | [facility] | COMPATIBLE | (missing) | (missing) | | spin | 14:30 | [facility] crossmatch | | [facility] | | | | + + + + + + + + + | Result panel 228 | + + + + + + + + + | Immediate | 2022-05-14 | [facility] | COMPATIBLE | (missing) | (missing) | | spin | 14:30 | [facility] crossmatch | | [facility] | | | | + + + + + + + + + | Result panel 229 | + + + + + + + + + | Transf Band | 2022-05-14 | [facility] | BLOOD IN | (missing) | (missing) | | Num Patient | 14:30 | [facility] | | | | + + + + + + + + + | Result panel 230 | + + + + + +-----+ + + | | 2022-05-14 | [facility] | O | (missing) | (missing) | | (unavailable | 14:30 | [facility] | [facility] | | | | + + + +-----+ + + + + | Result panel 231 | + + + + + + + + + | | 2022-05-14 | [facility] | POSITIVE | (missing) | (missing) | | (unavailable | 14:30 | [facility] | | | | + + + + + + + + + | Result panel 232 | + + + + + + + + + | | 2022-05-14 | [facility] | NEGATIVE | (missing) | (missing) | | (unavailable | 14:30 | [facility] | | | | + + + + + + + + + | Result panel 233 | + + + + + + + + + | | 2022-05-14 | [facility] | COMPATIBLE | (missing) | (missing) | | (unavailable | 14:30 | [facility] | | | | + + + + + + + + + | Result panel 234 | + + + + + + + + + | | 2022-05-14 | [facility] | COMPATIBLE | (missing) | (missing) | | (unavailable | 14:30 | [facility] | | | | + + + + + + + + + | Result panel 235 | + + + + + + + + + | | 2022-05-14 | [facility] | | (missing) | (missing) | | (unavailable | 14:30 | [facility] | [phone] | | | | ) | | [facility] | 00X | | | + + + + + + + + + | Result panel 236 | + + + + + + + + + | | 2022-05-14 | [facility] | | (missing) | (missing) | | (unavailable | 14:30 | [facility] | [phone] | | | | ) | | Hospital | 00P | | | + + + + + + + + + | Result panel 237 | + + + + + + + + + | | 2022-05-14 | [facility] | BLOOD IN | (missing) | (missing) | | (unavailable | 14:30 | [facility] ) | | [facility] | | | | + + + + + + + + + | Result panel 238 | + + + + + +-----+ + + | | 2022-05-14 | [facility] | O | (missing) | (missing) | | (unavailable | 14:30 | [facility] | | | | + + + +-----+ + + + + | Result panel 239 | + + + + + + + + + | | 2022-05-14 | [facility] | POSITIVE | (missing) | (missing) | | (unavailable | 14:30 | [facility] | | | | + + + + + + + + + | Result panel 240 | + + + + + + + + + | | 2022-05-14 | [facility] | NEGATIVE | (missing) | (missing) | | (unavailable | 14:30 | [facility] | | | | + + + + + + + + + | Result panel 241 | + + + + + + + + + | | 2022-05-14 | [facility] | COMPATIBLE | (missing) | (missing) | | (unavailable | 14:30 | [facility] | | | | + + + + + + + + + | Result panel 242 | + + + + + + + + + | | 2022-05-14 | [facility] | COMPATIBLE | (missing) | (missing) | | (unavailable | 14:30 | [facility] | | | | + + + + + + + + + | Result panel 243 | + + + + + + + + + | | 2022-05-14 | [facility] | | (missing) | (missing) | | (unavailable | 14:30 | [facility] | [phone] | | | | ) | | [facility] | 00X | | | + + + + + + + + + | Result panel 244 | + + + + + + + + + | | 2022-05-14 | [facility] | | (missing) | (missing) | | (unavailable | 14:30 | [facility] | [phone] | | | | ) | | [facility] | 00P | | | + + + + + + + + + | Result panel 245 | + + + + + + + + + | | 2022-05-14 | [facility] | BLOOD IN | (missing) | (missing) | | (unavailable | 14:30 | [facility] | | [facility] | | | | + + + + + + + + + | Result panel 246 | + + + + + +-----+ + + | | 2022-05-14 | [facility] | O | (missing) | (missing) | | (unavailable | 14:30 | [facility] | | | | + + + +-----+ + + + + | Result panel 247 | + + + + + + + + + | | 2022-05-14 | [facility] | POSITIVE | (missing) | (missing) | | (unavailable | 14:30 | [facility] | | | | + + + + + + + + + | Result panel 248 | + + + + + + + + + | | 2022-05-14 | [facility] | NEGATIVE | (missing) | (missing) | | (unavailable | 14:30 | [facility] | | | | + + + + + + + + + | Result panel 249 | + + + + + + + + + | | 2022-05-14 | [facility] | COMPATIBLE | (missing) | (missing) | | (unavailable | 14:30 | [facility] | | | | + + + + + + + + + | Result panel 250 | + + + + + + + + + | | 2022-05-14 | [facility] | COMPATIBLE | (missing) | (missing) | | (unavailable | 14:30 | [facility] | [facility] | | | | + + + + + + + + + | Result panel 251 | + + + + + + + + + | | 2022-05-14 | [facility] | | (missing) | (missing) | | (unavailable | 14:30 | [facility] | [phone] | | | | ) | | [facility] | 00X | | | + + + + + + + + + | Result panel 252 | + + + + + + + + + | | 2022-05-14 | [facility] | | (missing) | (missing) | | (unavailable | 14:30 | [facility] | [phone] | | | | ) | | [facility] | 00P | | | + + + + + + + + + | Result panel 253 | + + + + + + + + + | | 2022-05-14 | [facility] | BLOOD IN | (missing) | (missing) | | (unavailable | 14:30 | [facility] LAB [facility] ) | | Hospital | | | | + + + + + + + + + | Result panel 254 | + + + + + +-----+ + + | Blood ABO | 2022-05-14 | [facility] | O | (missing) | (missing) | | group typing | 14:30 | [facility] | | | | + + + +-----+ + + + + | Result panel 255 | + + + + + + + + + | Rh blood | 2022-05-14 | [facility] | POSITIVE | (missing) | (missing) | | group typing | 14:30 | [facility] | | [facility] | | | | + + + + + + + + + | Result panel 256 | + + + + + + + + + | Serum or | 2022-05-14 | [facility] | NEGATIVE | (missing) | (missing) | | plasma | 14:30 | [facility] | | | | indirect | | Hospital | | | | | antiglobulin | | | | | | | test using | | | | | | | poly | | | | | | | specific | | | | | | | reagent | | | | | | + + + + + + + + + | Result panel 257 | + + + + + +-------+ + + | | 2022-05-14 | [facility] | 124 | (missing) | (missing) | | (unavailable | 21:19 | [facility] | | | | + + + +-------+ + + + + | Result panel 258 | + + + + + +-------+ + + | | 2022-05-14 | [facility] | 124 | (missing) | (missing) | | (unavailable | 21:19 | [facility] | [facility] | | | | + + + +-------+ + + + + | Result panel 259 | + + + + + + + + + | Blood blood | 2022-05-16 | [facility] | SEE | (missing) | (missing) | | smear | 05:58 | [facility] | COMMENTS | | | | finding | | Hospital | | | | | identificati | | | | | | | on by light | | | | | | | microscopy | | | | | | + + + + + + + + + | Result panel 260 | + + + + + + + + + | | 2022-05-16 | [facility] | SEE | (missing) | (missing) | | (unavailable | 05:58 | [facility] COMMENTS | | | | ) | | [facility] | | | | + + + + + + + + + | Result panel 261 | + + + + + + + + + | | 2022-05-16 | [facility] | SEE | (missing) | (missing) | | (unavailable | 05:58 | [facility] COMMENTS | | | | ) | | [facility] | | | | + + + + + + + + + | Result panel 262 | + + + + + + + + + | | 2022-05-16 | [facility] | SEE | (missing) | (missing) | | (unavailable | 05:58 | [facility] COMMENTS | | | | ) | | [facility] | | | | + + + + + + + + + | Result panel 263 | + + + + + +-------+ + + | Automated | 2022-05-17 | [facility] | 7.8 | (missing) | (missing) | | blood | 08:20 | [facility] | | | | | lymphocyte | | Hospital | | | | | count as | | | | | | | percentage | | | | | | | ot total | | | | | | | leukocytes | | | | | | + + + +-------+ + + + + | Result panel 264 | + + + + + +-------+ + + | Automated | 2022-05-17 | [facility] | 6.7 | (missing) | (missing) | | blood | 08:20 | [facility] | | | | | monocyte | | Hospital | | | | | count as | | | | | | | percentage | | | | | | | of total | | | | | | | leukocytes | | | | | | + + + +-------+ + + + + | Result panel 265 | + + + + + +-------+ + + | Automated | 2022-05-17 | [facility] | 3.5 | (missing) | (missing) | | blood | 08:20 | [facility] | | | | | eosinophil | | Hospital | | | | | count as | | | | | | | percentage | | | | | | | of total | | | | | | | leukocytes | | | | | | + + + +-------+ + + + + | Result panel 266 | + + + + + +-------+ + + | Automated | 2022-05-17 | [facility] | 0.4 | (missing) | (missing) | | blood | 08:20 | [facility] | | | | | basophil | | Hospital | | | | | count as | | | | | | | percentage | | | | | | | of total | | | | | | | leukocytes | | | | | | + + + +-------+ + + + + | Result panel 267 | + + + + + +-------+ + + | Serum or | 2022-05-17 | [facility] | 114 | (missing) | (missing) | | plasma | 08:20 | [facility] | | | | | glucose | | Hospital | | | | | measurement | | | | | | | (mass/volume | | | | | | | ) | | | | | | + + + +-------+ + + + + | Result panel 268 | + + + + + +------+ + + | Serum or | 2022-05-17 | [facility] | 24 | (missing) | (missing) | | plasma urea | 08:20 | [facility] | | | | | nitrogen | | Hospital | | | | | measurement | | | | | | | (mass/volume | | | | | | | ) | | | | | | + + + +------+ + + + + | Result panel 269 | + + + + + +--------+ + + | Serum or | 2022-05-17 | [facility] | 0.97 | (missing) | (missing) | | plasma | 08:20 | [facility] | | | | creatinine | | Hospital | | | | | measurement | | | | | | | (mass/volume | | | | | | | ) | | | | | | + + + +--------+ + + + + | Result panel 270 | + + + + + +------+ + + | Glomerular | 2022-05-17 | [facility] | 87 | (missing) | (missing) | | filtration | 08:20 | [facility] | | | | | rate/1.73 sq | | Hospital | | | | | M.predicted | | | | | | | [Volume | | | | | | | Rate/Area] | | | | | | | inSerum, | | | | | | | Plasma or | | | | | | | Blood by | | | | | | | Creatinine-b | | | | | | | ased formula | | | | | | | (CKD-EPI | | | | | | | 2020) | | | | | | + + + +------+ + + + + | Result panel 271 | + + + + + +---------+ + + | Serum or | 2022-05-17 | [facility] | 24.74 | (missing) | (missing) | | plasma urea | 08:20 | [facility] | | | | | nitrogen/cre | | Hospital | | | | | atinine mass | | | | | | | ratio | | | | | | + + + +---------+ + + + + | Result panel 272 | + + + + + +-------+ + + | Serum or | 2022-05-17 | [facility] | 136 | (missing) | (missing) | | plasma | 08:20 | [facility] | | | | | sodium | | Hospital | | | | | measurement | | | | | | | (moles/volum | | | | | | | e) | | | | | | + + + +-------+ + + + + | Result panel 273 | + + + + + +-------+ + + | Serum or | 2022-05-17 | [facility] | 4.4 | (missing) | (missing) | | plasma | 08:20 | [facility] | | | | | potassium | | Hospital | | | | | measurement | | | | | | | (moles/volum | | | | | | | e) | | | | | | + + + +-------+ + + + + | Result panel 274 | + + + + + +-------+ + + | Serum or | 2022-05-17 | [facility] | 102 | (missing) | (missing) | | plasma | 08:20 | [facility] | | | | | chloride | | Hospital | | | | | measurement | | | | | | | (moles/volum | | | | | | | e) | | | | | | + + + +-------+ + + + + | Result panel 275 | + + + + + +------+ + + | Serum or | 2022-05-17 | [facility] | 27 | (missing) | (missing) | | plasma | 08:20 | [facility] | | | | | carbon | | Hospital | | | | | dioxide, | | | | | | | total | | | | | | | measurement | | | | | | | (moles/volum | | | | | | | e) | | | | | | + + + +------+ + + + + | Result panel 276 | + + + + + +--------+ + + | Serum or | 2022-05-17 | [facility] | 11.4 | (missing) | (missing) | | plasma anion | 08:20 | [facility] | | | | gap 4 | | Hospital | | | | + + + +--------+ + + + + | Result panel 277 | + + + + + +-------+ + + | Serum or | 2022-05-17 | [facility] | 9.0 | (missing) | (missing) | | plasma | 08:20 | [facility] | | | | | calcium | | Hospital | | | | | measurement | | | | | | | (mass/volume | | | | | | | ) | | | | | | + + + +-------+ + + + + | Result panel 278 | + + + + + +-------+ + + | Serum or | 2022-05-17 | [facility] | 5.9 | (missing) | (missing) | | plasma | 08:20 | [facility] | | | | | protein | | Hospital | | | | | measurement | | | | | | | (mass/volume | | | | | | | ) | | | | | | + + + +-------+ + + + + | Result panel 279 | + + + + + +-------+ + + | Serum or | 2022-05-17 | [facility] | 2.0 | (missing) | (missing) | | plasma | 08:20 | [facility] | | | | | albumin | | Hospital | | | | | measurement | | | | | | | (mass/volume | | | | | | | ) | | | | | | + + + +-------+ + + + + | Result panel 280 | + + + + + +-------+ + + | Serum | 2022-05-17 | [facility] | 3.9 | (missing) | (missing) | | globulin | 08:20 | [facility] | | | | measurement | | Hospital | | | | | (mass/volume | | | | | | | ) | | | | | | + + + +-------+ + + + + | Result panel 281 | + + + + + +--------+ + + | Serum or | 2022-05-17 | [facility] | 0.51 | (missing) | (missing) | | plasma | 08:20 | [facility] | | | | | albumin/glob | | Hospital | | | | | ulin mass | | | | | | | ratio | | | | | | + + + +--------+ + + + + | Result panel 282 | + + + + + +-------+ + + | Serum or | 2022-05-17 | [facility] | 0.4 | (missing) | (missing) | | plasma total | 08:20 | [facility] | | | | | bilirubin | | Hospital | | | | | measurement | | | | | | | (mass/volume | | | | | | | ) | | | | | | + + + +-------+ + + + + | Result panel 283 | + + + + + +------+ + + | Serum or | 2022-05-17 | [facility] | 51 | (missing) | (missing) | | plasma | 08:20 | [facility] | | | | | aspartate | | Hospital | | | | | aminotransfe | | | | | | | rase | | | | | | | measurement | | | | | | | (enzymatic | | | | | | | activity/vol | | | | | | | ume) | | | | | | + + + +------+ + + + + | Result panel 284 | + + + + + +------+ + + | Serum or | 2022-05-17 | [facility] | 82 | (missing) | (missing) | | plasma | 08:20 | [facility] | | | | | alanine | | Hospital | | | | | aminotransfe | | | | | | | rase | | | | | | | measurement | | | | | | | (enzymatic | | | | | | | activity/vol | | | | | | | ume) | | | | | | + + + +------+ + + + + | Result panel 285 | + + + + + +-------+ + + | Serum or | 2022-05-17 | [facility] | 125 | (missing) | (missing) | | plasma | 08:20 | [facility] | | | | | alkaline | | Hospital | | | | | phosphatase | | | | | | | measurement | | | | | | | (enzymatic | | | | | | | activity/vol | | | | | | | ume) | | | | | | + + + +-------+ + + + + | Result panel 286 | + + + + + +-------+ + + | Blood | 2022-05-17 | [facility] | 7.8 | (missing) | (missing) | | leukocytes | 08:20 | [facility] | | | | automated | | Hospital | | | | | count | | | | | | | (number/volu | | | | | | | me) | | | | | | + + + +-------+ + + + + | Result panel 287 | + + + + + +--------+ + + | Blood | 2022-05-17 | [facility] | 3.66 | (missing) | (missing) | | erythrocytes | 08:20 | [facility] | | | | automated | | Hospital | | | | | count | | | | | | | (number/volu | | | | | | | me) | | | | | | + + + +--------+ + + + + | Result panel 288 | + + + + + +-------+ + + | Blood | 2022-05-17 | [facility] | 9.6 | (missing) | (missing) | | hemoglobin | 08:20 | [facility] | | | | measurement | | Hospital | | | | | (mass/volume | | | | | | | ) | | | | | | + + + +-------+ + + + + | Result panel 289 | + + + + + +--------+ + + | Automated | 2022-05-17 | [facility] | 29.9 | (missing) | (missing) | | blood | 08:20 | [facility] | | | | hematocrit | | Hospital | | | | + + + +--------+ + + + + | Result panel 290 | + + + + + +--------+ + + | Automated | 2022-05-17 | [facility] | 81.6 | (missing) | (missing) | | erythrocyte | 08:20 | [facility] | | | | | mean | | Hospital | | | | | corpuscular | | | | | | | volume | | | | | | + + + +--------+ + + + + | Result panel 291 | + + + + + +--------+ + + | Automated | 2022-05-17 | [facility] | 26.1 | (missing) | (missing) | | erythrocyte | 08:20 | [facility] | | | | | mean | | Hospital | | | | | corpuscular | | | | | | | hemoglobin | | | | | | | (mass per | | | | | | | erythrocyte) | | | | | | | | | | | | | + + + +--------+ + + + + | Result panel 292 | + + + + + +--------+ + + | Automated | 2022-05-17 | [facility] | 31.9 | (missing) | (missing) | | erythrocyte | 08:20 | [facility] | | | | | mean | | Hospital | | | | | corpuscular | | | | | | | hemoglobin | | | | | | | concentratio | | | | | | | n | | | | | | | measurement | | | | | | | (mass/volume | | | | | | | ) | | | | | | + + + +--------+ + + + + | Result panel 293 | + + + + + +--------+ + + | Automated | 2022-05-17 | [facility] | 18.5 | (missing) | (missing) | | erythrocyte | 08:20 | [facility] | | | | | distribution | | Hospital | | | | | width | | | | | | + + + +--------+ + + + + | Result panel 294 | + + + + + +-------+ + + | Automated | 2022-05-17 | [facility] | 218 | (missing) | (missing) | | blood | 08:20 | [facility] | | | | platelet | | Hospital | | | | | count | | | | | | | (count/volum | | | | | | | e) | | | | | | + + + +-------+ + + + + | Result panel 295 | + + + + + +--------+ + + | Automated | 2022-05-17 | [facility] | 81.6 | (missing) | (missing) | | blood | 08:20 | [facility] | | | | neutrophil | | Hospital | | | | | count as | | | | | | | percentage | | | | | | | of total | | | | | | | leukocytes | | | | | | + + + +--------+ + + + + | Result panel 296 | + + + + + + + + + | | 2022-05-19 | [facility] | NEGATIVE | (missing) | (missing) | | (unavailable | 08:38 | [facility] ) | | [facility] | | | | + + + + + + + + + | Result panel 297 | + + + + + + + + + | | 2022-05-19 | [facility] | NEGATIVE | (missing) | (missing) | | (unavailable | 08:38 | [facility] ) | | [facility] | | | | + + + + + + + + + | Result panel 298 | + + + + + +-------+ + + | | 2022-05-28 | [facility] | 7.8 | (missing) | (missing) | | (unavailable | 21:11 | [facility] ) | | [facility] | | | | + + + +-------+ + + + + | Result panel 299 | + + + + + +--------+ + + | | 2022-05-28 | [facility] | 3.81 | (missing) | (missing) | | (unavailable | 21:11 | [facility] ) | | [facility] | | | | + + + +--------+ + + + + | Result panel 300 | + + + + + +-------+ + + | | 2022-05-28 | [facility] | 9.7 | (missing) | (missing) | | (unavailable | 21:11 | [facility] | [facility] | | | | + + + +-------+ + + + + | Result panel 301 | + + + + + +--------+ + + | | 2022-05-28 | [facility] | 30.3 | (missing) | (missing) | | (unavailable | 21:11 | [facility] | | | | + + + +--------+ + + + + | Result panel 302 | + + + + + +--------+ + + | | 2022-05-28 | [facility] | 79.6 | (missing) | (missing) | | (unavailable | 21:11 | [facility] | | | | + + + +--------+ + + + + | Result panel 303 | + + + + + +--------+ + + | | 2022-05-28 | [facility] | 25.5 | (missing) | (missing) | | (unavailable | 21:11 | [facility] | | | | + + + +--------+ + + + + | Result panel 304 | + + + + + +--------+ + + | | 2022-05-28 | [facility] | 32.0 | (missing) | (missing) | | (unavailable | 21:11 | [facility] | | | | + + + +--------+ + + + + | Result panel 305 | + + + + + +--------+ + + | | 2022-05-28 | [facility] | 17.8 | (missing) | (missing) | | (unavailable | 21:11 | [facility] | | | | + + + +--------+ + + + + | Result panel 306 | + + + + + +-------+ + + | | 2022-05-28 | [facility] | 205 | (missing) | (missing) | | (unavailable | 21:11 | [facility] | | | | + + + +-------+ + + + + | Result panel 307 | + + + + + +--------+ + + | | 2022-05-28 | [facility] | 77.3 | (missing) | (missing) | | (unavailable | 21:11 | [facility] | | | | + + + +--------+ + + + + | Result panel 308 | + + + + + +-------+ + + | | 2022-05-28 | [facility] | 9.5 | (missing) | (missing) | | (unavailable | 21:11 | [facility] | | | | + + + +-------+ + + + + | Result panel 309 | + + + + + +-------+ + + | | 2022-05-28 | [facility] | 8.1 | (missing) | (missing) | | (unavailable | 21:11 [facility] | | | | + + + +-------+ + + + + | Result panel 310 | + + + + + +-------+ + + | | 2022-05-28 | [facility] | 4.6 | (missing) | (missing) | | (unavailable | 21:11 | [facility] | | | | + + + +-------+ + + + + | Result panel 311 | + + + + + +-------+ + + | | 2022-05-28 | [facility] | 0.5 | (missing) | (missing) | | (unavailable | 21:11 | [facility] | | | | + + + +-------+ + + + + | Result panel 312 | + + + + + + + + + | | 2022-05-28 | [facility] | YELLOW | (missing) | (missing) | | (unavailable | 21:11 | [facility] | | | | + + + + + + + + + | Result panel 313 | + + + + + +---------+ + + | | 2022-05-28 | [facility] | CLEAR | (missing) | (missing) | | (unavailable | 21:11 | [facility] | | | | + + + +---------+ + + + + | Result panel 314 | + + + + + + + + + | | 2022-05-28 | [facility] | NEGATIVE | (missing) | (missing) | | (unavailable | 21:11 | [facility] | | | | + + + + + + + + + | Result panel 315 | + + + + + + + + + | | 2022-05-28 | [facility] | NEGATIVE | (missing) | (missing) | | (unavailable | 21:11 | [facility] | | | | + + + + + + + + + | Result panel 316 | + + + + + + + + + | | 2022-05-28 | [facility] | NEGATIVE | (missing) | (missing) | | (unavailable | 21:11 | [facility] | | | | + + + + + + + + + | Result panel 317 | + + + + + + + + + | | 2022-05-28 | [facility] | <=1.005 | (missing) | (missing) | | (unavailable | 21:11 | [facility] | | | | [facility] | | | | + + + + + + + + + | Result panel 318 | + + + + + + + + + | | 2022-05-28 | [facility] | NEGATIVE | (missing) | (missing) | | (unavailable | 21:11 | [facility] | | | | + + + + + + + + + | Result panel 319 | + + + + + +-------+ + + | | 2022-05-28 | [facility] | 5.5 | (missing) | (missing) | | (unavailable | 21:11 | [facility] | | | | + + + +-------+ + + + + | Result panel 320 | + + + + + + + + + | | 2022-05-28 | [facility] | NEGATIVE | (missing) | (missing) | | (unavailable | 21:11 | [facility] | | | | + + + + + + + + + | Result panel 321 | + + + + + + + + + | | 2022-05-28 | [facility] | NORMAL | (missing) | (missing) | | (unavailable | 21:11 | [facility] | | | | + + + + + + + + + | Result panel 322 | + + + + + + + + + | | 2022-05-28 | [facility] | NEGATIVE | (missing) | (missing) | | (unavailable | 21:11 | [facility] | | | | + + + + + + + + + | Result panel 323 | + + + + + + + + + | | 2022-05-28 | [facility] | NEGATIVE | (missing) | (missing) | | (unavailable | 21:11 | [facility] | | | | + + + + + + + + + | Result panel 324 | + + + + + +-------+ + + | | 2022-05-28 | [facility] | 6.8 | (missing) | (missing) | | (unavailable | 21:11 | [facility] | | | | + + + +-------+ + + + + | Result panel 325 | + + + + + +-------+ + + | | 2022-05-28 | [facility] | 2.6 | (missing) | (missing) | | (unavailable | 21:11 | [facility] | | | | + + + +-------+ + + + + | Result panel 326 | + + + + + +-------+ + + | | 2022-05-28 | [facility] | 4.2 | (missing) | (missing) | | (unavailable | 21:11 | [facility] | | | | + + + +-------+ + + + + | Result panel 327 | + + + + + +--------+ + + | | 2022-05-28 | [facility] | 0.62 | (missing) | (missing) | | (unavailable | 21:11 | [facility] | | | | + + + +--------+ + + + + | Result panel 328 | + + + + + +-------+ + + | | 2022-05-28 | [facility] | 0.3 | (missing) | (missing) | | (unavailable | 21:11 | [facility] | | | | + + + +-------+ + + + + | Result panel 329 | + + + + + +------+ + + | | 2022-05-28 | [facility] | 13 | (missing) | (missing) | | (unavailable | 21:11 | [facility] | | | | + + + +------+ + + + + | Result panel 330 | + + + + + +------+ + + | | 2022-05-28 | [facility] | 29 | (missing) | (missing) | | (unavailable | 21:11 | [facility] | | | | + + + +------+ + + + + | Result panel 331 | + + + + + +-------+ + + | | 2022-05-28 | [facility] | 120 | (missing) | (missing) | | (unavailable | 21:11 | [facility] | | | | + + + +-------+ + + + + | Result panel 332 | + + + + + +-------+ + + | | 2022-05-28 | [facility] | 372 | (missing) | (missing) | | (unavailable | 21:11 | [facility] | | | | + + + +-------+ + + + + | Result panel 333 | + + + + + +-------+ + + | | 2022-05-28 | [facility] | 7.8 | (missing) | (missing) | | (unavailable | 21:11 | [facility] | | | | + + + +-------+ + + + + | Result panel 334 | + + + + + +--------+ + + | | 2022-05-28 | [facility] | 3.81 | (missing) | (missing) | | (unavailable | 21:11 | [facility] | | | | + + + +--------+ + + + + | Result panel 335 | + + + + + +-------+ + + | | 2022-05-28 | [facility] | 9.7 | (missing) | (missing) | | (unavailable | 21:11 | [facility] | | | | + + + +-------+ + + + + | Result panel 336 | + + + + + +--------+ + + | | 2022-05-28 | [facility] | 30.3 | (missing) | (missing) | | (unavailable | 21:11 | [facility] | | | | + + + +--------+ + + + + | Result panel 337 | + + + + + +--------+ + + | | 2022-05-28 | [facility] | 79.6 | (missing) | (missing) | | (unavailable | 21:11 | [facility] | | | | + + + +--------+ + + + + | Result panel 338 | + + + + + +--------+ + + | | 2022-05-28 | [facility] | 25.5 | (missing) | (missing) | | (unavailable | 21:11 | [facility] | | | | + + + +--------+ + + + + | Result panel 339 | + + + + + +--------+ + + | | 2022-05-28 | [facility] | 32.0 | (missing) | (missing) | | (unavailable | 21:11 | [facility] | | | | + + + +--------+ + + + + | Result panel 340 | + + + + + +--------+ + + | | 2022-05-28 | [facility] | 17.8 | (missing) | (missing) | | (unavailable | 21:11 | [facility] | | | | + + + +--------+ + + + + | Result panel 341 | + + + + + +-------+ + + | | 2022-05-28 | [facility] | 205 | (missing) | (missing) | | (unavailable | 21:11 | [facility] | | | | + + + +-------+ + + + + | Result panel 342 | + + + + + +--------+ + + | | 2022-05-28 | [facility] | 77.3 | (missing) | (missing) | | (unavailable | 21:11 | [facility] | | | | + + + +--------+ + + + + | Result panel 343 | + + + + + +-------+ + + | | 2022-05-28 | [facility] | 9.5 | (missing) | (missing) | | (unavailable | 21:11 | [facility] | | | | + + + +-------+ + + + + | Result panel 344 | + + + + + +-------+ + + | | 2022-05-28 | [facility] | 8.1 | (missing) | (missing) | | (unavailable | 21:11 | [facility] | | | | + + + +-------+ + + + + | Result panel 345 | + + + + + +-------+ + + | | 2022-05-28 | [facility] | 4.6 | (missing) | (missing) | | (unavailable | 21:11 | [facility] | | | | + + + +-------+ + + + + | Result panel 346 | + + + + + +-------+ + + | | 2022-05-28 | [facility] | 0.5 | (missing) | (missing) | | (unavailable | 21:11 | [facility] | | | | + + + +-------+ + + + + | Result panel 347 | + + + + + + + + + | | 2022-05-28 | [facility] | YELLOW | (missing) | (missing) | | (unavailable | 21:11 | [facility] | | | | + + + + + + + + + | Result panel 348 | + + + + + +---------+ + + | | 2022-05-28 | [facility] | CLEAR | (missing) | (missing) | | (unavailable | 21:11 | [facility] | | | | + + + +---------+ + + + + | Result panel 349 | + + + + + + + + + | | 2022-05-28 | [facility] | NEGATIVE | (missing) | (missing) | | (unavailable | 21:11 | [facility] | | | | + + + + + + + + + | Result panel 350 | + + + + + + + + + | | 2022-05-28 | [facility] | NEGATIVE | (missing) | (missing) | | (unavailable | 21:11 | [facility] | | | | + + + + + + + + + | Result panel 351 | + + + + + + + + + | | 2022-05-28 | [facility] | NEGATIVE | (missing) | (missing) | | (unavailable | 21:11 | [facility] | | | | + + + + + + + + + | Result panel 352 | + + + + + + + + + | | 2022-05-28 | [facility] | <=1.005 | (missing) | (missing) | | (unavailable | 21:11 | [facility] | | | | + + + + + + + + + | Result panel 353 | + + + + + + + + + | | 2022-05-28 | [facility] | NEGATIVE | (missing) | (missing) | | (unavailable | 21:11 | [facility] | | | | + + + + + + + + + | Result panel 354 | + + + + + +-------+ + + | | 2022-05-28 | [facility] | 5.5 | (missing) | (missing) | | (unavailable | 21:11 | [facility] | | | | + + + +-------+ + + + + | Result panel 355 | + + + + + + + + + | | 2022-05-28 | [facility] | NEGATIVE | (missing) | (missing) | | (unavailable | 21:11 | [facility] | | | | + + + + + + + + + | Result panel 356 | + + + + + + + + + | | 2022-05-28 | [facility] | NORMAL | (missing) | (missing) | | (unavailable | 21:11 | [facility] | | | | + + + + + + + + + | Result panel 357 | + + + + + + + + + | | 2022-05-28 | [facility] | NEGATIVE | (missing) | (missing) | | (unavailable | 21:11 | [facility] | | | | + + + + + + + + + | Result panel 358 | + + + + + + + + + | | 2022-05-28 | [facility] | NEGATIVE | (missing) | (missing) | | (unavailable | 21:11 | [facility] | | | | + + + + + + + + + | Result panel 359 | + + + + + +-------+ + + | | 2022-05-28 | [facility] | 6.8 | (missing) | (missing) | | (unavailable | 21:11 | [facility] | | | | + + + +-------+ + + + + | Result panel 360 | + + + + + +-------+ + + | | 2022-05-28 | [facility] | 2.6 | (missing) | (missing) | | (unavailable | 21:11 | [facility] | | | | + + + +-------+ + + + + | Result panel 361 | + + + + + +-------+ + + | | 2022-05-28 | [facility] | 4.2 | (missing) | (missing) | | (unavailable | 21:11 | [facility] | | | | + + + +-------+ + + + + | Result panel 362 | + + + + + +--------+ + + | | 2022-05-28 | [facility] | 0.62 | (missing) | (missing) | | (unavailable | 21:11 | [facility] | | | | + + + +--------+ + + + + | Result panel 363 | + + + + + +-------+ + + | | 2022-05-28 | [facility] | 0.3 | (missing) | (missing) | | (unavailable | 21:11 | [facility] | | | | + + + +-------+ + + + + | Result panel 364 | + + + + + +------+ + + | | 2022-05-28 | [facility] | 13 | (missing) | (missing) | | (unavailable | 21:11 | [facility] | | | | + + + +------+ + + + + | Result panel 365 | + + + + + +------+ + + | | 2022-05-28 | [facility] | 29 | (missing) | (missing) | | (unavailable | 21:11 | [facility] | | | | + + + +------+ + + + + | Result panel 366 | + + + + + +-------+ + + | | 2022-05-28 | [facility] | 120 | (missing) | (missing) | | (unavailable | 21:11 | [facility] | | | | + + + +-------+ + + + + | Result panel 367 | + + + + + +-------+ + + | | 2022-05-28 | [facility] | 372 | (missing) | (missing) | | (unavailable | 21:11 | [facility] | | | | + + + +-------+ + + + + | Result panel 368 | + + + + + +-------+---------+ + | | 2022-05-28 | [facility] | 118 | mg/dL | (missing) | | (unavailable | 23:00 | [facility] | | | | + + + +-------+---------+ + + + | Result panel 369 | + + + + + +------+---------+ + | | 2022-05-28 | [facility] | 30 | mg/dL | (missing) | | (unavailable | 23:00 | [facility] | | | | + + + +------+---------+ + + + | Result panel 370 | + + + + + +--------+---------+ + | | 2022-05-28 | [facility] | 1.33 | mg/dL | (missing) | | (unavailable | 23:00 | [facility] | | | | + + + +--------+---------+ + + + | Result panel 371 | + + + + + +------+ + + | | 2022-05-28 | [facility] | 59 | (missing) | (missing) | | (unavailable | 23:00 | [facility] | | | | + + + +------+ + + + + | Result panel 372 | + + + + + +---------+ + + | | 2022-05-28 | [facility] | 22.55 | (missing) | (missing) | | (unavailable | 23:00 | [facility] | | | | + + + +---------+ + + + + | Result panel 373 | + + + + + +-------+ + + | | 2022-05-28 | [facility] | 132 | (missing) | (missing) | | (unavailable | 23:00 | [facility] | | | | + + + +-------+ + + + + | Result panel 374 | + + + + + +-------+ + + | | 2022-05-28 | [facility] | 5.2 | (missing) | (missing) | | (unavailable | 23:00 | [facility] | | | | + + + +-------+ + + + + | Result panel 375 | + + + + + +-------+ + + | | 2022-05-28 | [facility] | 100 | (missing) | (missing) | | (unavailable | 23:00 | [facility] | | | | + + + +-------+ + + + + | Result panel 376 | + + + + + +------+ + + | | 2022-05-28 | [facility] | 23 | (missing) | (missing) | | (unavailable | 23:00 | [facility] | | | | + + + +------+ + + + + | Result panel 377 | + + + + + +--------+ + + | | 2022-05-28 | [facility] | 14.2 | (missing) | (missing) | | (unavailable | 23:00 | [facility] | | | | + + + +--------+ + + + + | Result panel 378 | + + + + + +-------+---------+ + | | 2022-05-28 | [facility] | 8.7 | mg/dL | (missing) | | (unavailable | 23:00 | [facility] | | | | + + + +-------+---------+ + + + | Result panel 379 | + + + + + +-------+---------+ + | | 2022-05-28 | [facility] | 118 | mg/dL | (missing) | | (unavailable | 23:00 | [facility] | | | | + + + +-------+---------+ + + + | Result panel 380 | + + + + + +------+---------+ + | | 2022-05-28 | [facility] | 30 | mg/dL | (missing) | | (unavailable | 23:00 | [facility] | | | | + + + +------+---------+ + + + | Result panel 381 | + + + + + +--------+---------+ + | | 2022-05-28 | [facility] | 1.33 | mg/dL | (missing) | | (unavailable | 23:00 | [facility] | | | | + + + +--------+---------+ + + + | Result panel 382 | + + + + + +------+ + + | | 2022-05-28 | [facility] | 59 | (missing) | (missing) | | (unavailable | 23:00 | [facility] | | | | + + + +------+ + + + + | Result panel 383 | + + + + + +---------+ + + | | 2022-05-28 | [facility] | 22.55 | (missing) | (missing) | | (unavailable | 23:00 | [facility] | | | | + + + +---------+ + + + + | Result panel 384 | + + + + + +-------+ + + | | 2022-05-28 | [facility] | 132 | (missing) | (missing) | | (unavailable | 23:00 | [facility] | | | | + + + +-------+ + + + + | Result panel 385 | + + + + + +-------+ + + | | 2022-05-28 | [facility] | 5.2 | (missing) | (missing) | | (unavailable | 23:00 | [facility] | | | | + + + +-------+ + + + + | Result panel 386 | + + + + + +-------+ + + | | 2022-05-28 | [facility] | 100 | (missing) | (missing) | | (unavailable | 23:00 | [facility] | | | | + + + +-------+ + + + + | Result panel 387 | + + + + + +------+ + + | | 2022-05-28 | [facility] | 23 | (missing) | (missing) | | (unavailable | 23:00 | [facility] | | | | + + + +------+ + + + + | Result panel 388 | + + + + + +--------+ + + | | 2022-05-28 | [facility] | 14.2 | (missing) | (missing) | | (unavailable | 23:00 | [facility] | | | | + + + +--------+ + + + + | Result panel 389 | + + + + + +-------+---------+ + | | 2022-05-28 | [facility] | 8.7 | mg/dL | (missing) | | (unavailable | 23:00 | [facility] | | | | + + + +-------+---------+ + + + | Result panel 390 | + + + + + +-------+ + + | | 2022-06-08 | [facility] | 8.3 | (missing) | (missing) | | (unavailable | 15:25 | [facility] | | | | + + + +-------+ + + + + | Result panel 391 | + + + + + +-------+ + + | | 2022-06-08 | [facility] | 3.0 | (missing) | (missing) | | (unavailable | 15:25 | [facility] | | | | + + + +-------+ + + + + | Result panel 392 | + + + + + +-------+ + + | | 2022-06-08 | [facility] | 5.3 | (missing) | (missing) | | (unavailable | 15:25 | [facility] | | | | + + + +-------+ + + + + | Result panel 393 | + + + + + +--------+ + + | | 2022-06-08 | [facility] | 0.57 | (missing) | (missing) | | (unavailable | 15:25 | [facility] | | | | + + + +--------+ + + + + | Result panel 394 | + + + + + +-------+ + + | | 2022-06-08 | [facility] | 0.5 | (missing) | (missing) | | (unavailable | 15:25 | [facility] | | | | + + + +-------+ + + + + | Result panel 395 | + + + + + +------+ + + | | 2022-06-08 | [facility] | 17 | (missing) | (missing) | | (unavailable | 15:25 | [facility] | | | | + + + +------+ + + + + | Result panel 396 | + + + + + +------+ + + | | 2022-06-08 | [facility] | 44 | (missing) | (missing) | | (unavailable | 15:25 | [facility] | | | | + + + +------+ + + + + | Result panel 397 | + + + + + +-------+ + + | | 2022-06-08 | [facility] | 287 | (missing) | (missing) | | (unavailable | 15:25 | [facility] | | | | + + + +-------+ + + + + | Result panel 398 | + + + + + +-------+ + + | | 2022-06-08 | [facility] | 244 | (missing) | (missing) | | (unavailable | 15:25 | [facility] | | | | + + + +-------+ + + + + | Result panel 399 | + + + + + +-------+ + + | | 2022-06-08 | [facility] | 5.2 | (missing) | (missing) | | (unavailable | 15:25 | [facility] | | | | + + + +-------+ + + + + | Result panel 400 | + + + + + + + + + | | 2022-06-08 | [facility] | YELLOW | (missing) | (missing) | | (unavailable | 17:45 | [facility] | | | | + + + + + + + + + | Result panel 401 | + + + + + +---------+ + + | | 2022-06-08 | [facility] | CLEAR | (missing) | (missing) | | (unavailable | 17:45 | [facility] | | | | + + + +---------+ + + + + | Result panel 402 | + + + + + + + + + | | 2022-06-08 | [facility] | NEGATIVE | (missing) | (missing) | | (unavailable | 17:45 | [facility] | | | | + + + + + + + + + | Result panel 403 | + + + + + + + + + | | 2022-06-08 | [facility] | NEGATIVE | (missing) | (missing) | | (unavailable | 17:45 | [facility] | | | | + + + + + + + + + | Result panel 404 | + + + + + + + + + | | 2022-06-08 | [facility] | NEGATIVE | (missing) | (missing) | | (unavailable | 17:45 | [facility] | | | | + + + + + + + + + | Result panel 405 | + + + + + +---------+ + + | | 2022-06-08 | [facility] | 1.010 | (missing) | (missing) | | (unavailable | 17:45 | [facility] | | | | + + + +---------+ + + + + | Result panel 406 | + + + + + + + + + | | 2022-06-08 | [facility] | TRACE-I | (missing) | (missing) | | (unavailable | 17:45 | [facility] | | | | + + + + + + + + + | Result panel 407 | + + + + + +-------+ + + | | 2022-06-08 | [facility] | 5.5 | (missing) | (missing) | | (unavailable | 17:45 | [facility] | | | | + + + +-------+ + + + + | Result panel 408 | + + + + + + + + + | | 2022-06-08 | [facility] | NEGATIVE | (missing) | (missing) | | (unavailable | 17:45 | [facility] | | | | + + + + + + + + + | Result panel 409 | + + + + + + + + + | | 2022-06-08 | [facility] | NORMAL | (missing) | (missing) | | (unavailable | 17:45 | [facility] | | | | + + + + + + + + + | Result panel 410 | + + + + + + + + + | | 2022-06-08 | [facility] | NEGATIVE | (missing) | (missing) | | (unavailable | 17:45 | [facility] | | | | + + + + + + + + + | Result panel 411 | + + + + + + + + + | | 2022-06-08 | [facility] | NEGATIVE | (missing) | (missing) | | (unavailable | 17:45 | [facility] | | | | + + + + + + + + + | Result panel 412 | + + + + + +-------+ + + | | 2022-06-08 | [facility] | 2-3 | (missing) | (missing) | | (unavailable | 17:45 | [facility] | | | | + + + +-------+ + + + + | Result panel 413 | + + + + + +--------+ + + | | 2022-06-08 | [facility] | 7-11 | (missing) | (missing) | | (unavailable | 17:45 | [facility] | | | | + + + +--------+ + + + + | Result panel 414 | + + + + + + + + + | | 2022-06-08 | [facility] | SQUAMOUS 1+ | (missing) | (missing) | | (unavailable | 17:45 | [facility] | | | | + + + + + + + + + | Result panel 415 | + + + + + + + + + | | 2022-06-08 | [facility] | NONE SEEN | (missing) | (missing) | | (unavailable | 17:45 | [facility] | | | | + + + + + + + + + | Result panel 416 | + + + + + +------+ + + | | 2022-06-08 | [facility] | 1+ | (missing) | (missing) | | (unavailable | 17:45 | [facility] | | | | + + + +------+ + + + + | Result panel 417 | + + + + + + + + + | | 2022-06-08 | [facility] | NONE SEEN | (missing) | (missing) | | (unavailable | 17:45 | [facility] | | | | + + + + + + + + + | Result panel 418 | + + + + + +-------+ + + | | 2022-06-08 | [facility] | Yes | (missing) | (missing) | | (unavailable | 17:45 | [facility] | | | | + + + +-------+ + + + + | Result panel 419 | + + + + + + + + + | | 2022-06-08 | [facility] | CLEAN CATCH | (missing) | (missing) | | (unavailable | 17:45 | [facility] | | | | + + + + + + + + + | Result panel 420 | + + + + + +---------+---------+ + | | 2022-06-08 | [facility] | 92.04 | mg/dL | (missing) | | (unavailable | 17:45 | [facility] | | | | + + + +---------+---------+ + + + | Result panel 421 | + + + + + +-------+ + + | | 2022-06-08 | [facility] | < 5 | (missing) | (missing) | | (unavailable | 17:45 | [facility] | | | | + + + +-------+ + + + + | Result panel 422 | + + + + + + + + + | | 2022-06-08 | [facility] | SEE SCANNED | (missing) | (missing) | | (unavailable | 17:45 | [facility] | | | | + + + + + + + + + | Result panel 423 | + + + + + + + + + | | 2022-06-08 | [facility] | NEGATIVE | (missing) | (missing) | | (unavailable | 18:20 | [facility] | | | | + + + + + + + + + | Result panel 424 | + + + + + +-------+ + + | | 2022-06-08 | [facility] | 105 | (missing) | (missing) | | (unavailable | 21:09 | [facility] | | | | + + + +-------+ + + + + | Result panel 425 | + + + + + +-------+ + + | | 2022-06-09 | [facility] | 9.3 | (missing) | (missing) | | (unavailable | 05:19 | [facility] | | | | + + + +-------+ + + + + | Result panel 426 | + + + + + +--------+ + + | | 2022-06-09 | [facility] | 3.64 | (missing) | (missing) | | (unavailable | 05:19 | [facility] | | | | + + + +--------+ + + + + | Result panel 427 | + + + + + +-------+ + + | | 2022-06-09 | [facility] | 9.2 | (missing) | (missing) | | (unavailable | 05:19 | [facility] | | | | + + + +-------+ + + + + | Result panel 428 | + + + + + +--------+ + + | | 2022-06-09 | [facility] | 27.9 | (missing) | (missing) | | (unavailable | 05:19 | [facility] | | | | + + + +--------+ + + + + | Result panel 429 | + + + + + +--------+ + + | | 2022-06-09 | [facility] | 76.7 | (missing) | (missing) | | (unavailable | 05:19 | [facility] | | | | + + + +--------+ + + + + | Result panel 430 | + + + + + +--------+ + + | | 2022-06-09 | [facility] | 25.3 | (missing) | (missing) | | (unavailable | 05:19 | [facility] | | | | + + + +--------+ + + + + | Result panel 431 | + + + + + +--------+ + + | | 2022-06-09 | [facility] | 33.0 | (missing) | (missing) | | (unavailable | 05:19 | [facility] | | | | + + + +--------+ + + + + | Result panel 432 | + + + + + +--------+ + + | | 2022-06-09 | [facility] | 18.2 | (missing) | (missing) | | (unavailable | 05:19 | [facility] | | | | + + + +--------+ + + + + | Result panel 433 | + + + + + +-------+ + + | | 2022-06-09 | [facility] | 217 | (missing) | (missing) | | (unavailable | 05:19 | [facility] | | | | + + + +-------+ + + + + | Result panel 434 | + + + + + +--------+ + + | | 2022-06-09 | [facility] | 79.0 | (missing) | (missing) | | (unavailable | 05:19 | [facility] | | | | + + + +--------+ + + + + | Result panel 435 | + + + + + +-------+ + + | | 2022-06-09 | [facility] | 7.9 | (missing) | (missing) | | (unavailable | 05:19 | [facility] | | | | + + + +-------+ + + + + | Result panel 436 | + + + + + +--------+ + + | | 2022-06-09 | [facility] | 10.1 | (missing) | (missing) | | (unavailable | 05:19 | [facility] | | | | + + + +--------+ + + + + | Result panel 437 | + + + + + +-------+ + + | | 2022-06-09 | [facility] | 2.5 | (missing) | (missing) | | (unavailable | 05:19 | [facility] | | | | + + + +-------+ + + + + | Result panel 438 | + + + + + +-------+ + + | | 2022-06-09 | [facility] | 0.5 | (missing) | (missing) | | (unavailable | 05:19 | [facility] | | | | + + + +-------+ + + + + | Result panel 439 | + + + + + +------+---------+ + | | 2022-06-11 | [facility] | 92 | mg/dL | (missing) | | (unavailable | 05:13 | [facility] | | | | + + + +------+---------+ + + + | Result panel 440 | + + + + + +------+---------+ + | | 2022-06-11 | [facility] | 47 | mg/dL | (missing) | | (unavailable | 05:13 | [facility] | | | | + + + +------+---------+ + + + | Result panel 441 | + + + + + +--------+---------+ + | | 2022-06-11 | [facility] | 1.27 | mg/dL | (missing) | | (unavailable | 05:13 | [facility] | | | | + + + +--------+---------+ + + + | Result panel 442 | + + + + + +------+ + + | | 2022-06-11 | [facility] | 63 | (missing) | (missing) | | (unavailable | 05:13 | [facility] | | | | + + + +------+ + + + + | Result panel 443 | + + + + + +---------+ + + | | 2022-06-11 | [facility] | 37.00 | (missing) | (missing) | | (unavailable | 05:13 | [facility] | | | | + + + +---------+ + + + + | Result panel 444 | + + + + + +-------+ + + | | 2022-06-11 | [facility] | 134 | (missing) | (missing) | | (unavailable | 05:13 | [facility] | | | [facility] | [facility] | | | | + + + +-------+ + + + + | Result panel 445 | + + + + + +-------+ + + | | 2022-06-11 | [facility] | 3.7 | (missing) | (missing) | | (unavailable | 05:13 | [facility] | | | | + + + +-------+ + + + + | Result panel 446 | + + + + + +-------+ + + | | 2022-06-11 | [facility] | 100 | (missing) | (missing) | | (unavailable | 05:13 | [facility] | | | | + + + +-------+ + + + + | Result panel 447 | + + + + + +------+ + + | | 2022-06-11 | [facility] | 25 | (missing) | (missing) | | (unavailable | 05:13 | [facility] | | | | + + + +------+ + + + + | Result panel 448 | + + + + + +--------+ + + | | 2022-06-11 | [facility] | 12.7 | (missing) | (missing) | | (unavailable | 05:13 | [facility] | | | | + + + +--------+ + + + + | Result panel 449 | + + + + + +-------+---------+ + | | 2022-06-11 | [facility] | 5.8 | mg/dL | (missing) | | (unavailable | 05:13 | [facility] | | | | + + + +-------+---------+ + + + | Result panel 450 | + + + + + +-------+---------+ + | | 2022-06-11 | [facility] | 9.2 | mg/dL | (missing) | | (unavailable | 05:13 | [facility] | | | | + + + +-------+---------+ + + + | Result panel 451 | + + + + + + + + + | Respiratory | 2022-07-10 | [facility] | NEGATIVE | (missing) | (missing) | | specimen | 15:35 | [facility] | | | | 2019 novel | | Hospital | | | | | coronavirus | | | | | | | RNA | | | | | | | detection | | | | | | + + + + + + + + + | Result panel 452 | + + + + + + + + + | | 2022-07-10 | [facility] | NEGATIVE | (missing) | (missing) | | (unavailable | 15:35 | [facility] | | | | + + + + + + + + + | Result panel 453 | + + + + + +-------+ + + | Serum or | 2022-07-10 | [facility] | 1.0 | (missing) | (missing) | | plasma | 16:30 | [facility] | | | | lactate | | Hospital | | | | | measurement | | | | | | | (moles/volum | | | | | | | e) | | | | | | + + + +-------+ + + + + | Result panel 454 | + + + + + +-------+ + + | | 2022-07-10 | [facility] | 1.0 | (missing) | (missing) | | (unavailable | 16:30 | [facility] | | | | + + + +-------+ + + + + | Result panel 455 | + + + + + +-------+ + + | | 2022-07-13 | [facility] | 4.6 | (missing) | (missing) | | (unavailable | 05:50 | [facility] | | | | + + + +-------+ + + + + | Result panel 456 | + + + + + +--------+ + + | | 2022-07-13 | [facility] | 3.31 | (missing) | (missing) | | (unavailable | 05:50 | [facility] | | | | + + + +--------+ + + + + | Result panel 457 | + + + + + +-------+ + + | | 2022-07-13 | [facility] | 8.6 | (missing) | (missing) | | (unavailable | 05:50 | [facility] | | | | + + + +-------+ + + + + | Result panel 458 | + + + + + +--------+ + + | | 2022-07-13 | [facility] | 27.5 | (missing) | (missing) | | (unavailable | 05:50 | [facility] | | | | + + + +--------+ + + + + | Result panel 459 | + + + + + +--------+ + + | | 2022-07-13 | [facility] | 83.1 | (missing) | (missing) | | (unavailable | 05:50 | [facility] | | | | + + + +--------+ + + + + | Result panel 460 | + + + + + +--------+ + + | | 2022-07-13 | [facility] | 26.1 | (missing) | (missing) | | (unavailable | 05:50 | [facility] | | | | + + + +--------+ + + + + | Result panel 461 | + + + + + +--------+ + + | | 2022-07-13 | [facility] | 31.4 | (missing) | (missing) | | (unavailable | 05:50 | [facility] | | | | + + + +--------+ + + + + | Result panel 462 | + + + + + +--------+ + + | | 2022-07-13 | [facility] | 18.6 | (missing) | (missing) | | (unavailable | 05:50 | [facility] | | | | + + + +--------+ + + + + | Result panel 463 | + + + + + +-------+ + + | | 2022-07-13 | [facility] | 192 | (missing) | (missing) | | (unavailable | 05:50 | [facility] | | | | + + + +-------+ + + + + | Result panel 464 | + + + + + +--------+ + + | | 2022-07-13 | [facility] | 78.1 | (missing) | (missing) | | (unavailable | 05:50 | [facility] | | | | + + + +--------+ + + + + | Result panel 465 | + + + + + +--------+ + + | | 2022-07-13 | [facility] | 10.6 | (missing) | (missing) | | (unavailable | 05:50 | [facility] | | | | + + + +--------+ + + + + | Result panel 466 | + + + + + +-------+ + + | | 2022-07-13 | [facility] | 5.9 | (missing) | (missing) | | (unavailable | 05:50 | [facility] | | | | + + + +-------+ + + + + | Result panel 467 | + + + + + +-------+ + + | | 2022-07-13 | [facility] | 4.5 | (missing) | (missing) | | (unavailable | 05:50 | [facility] | | | | + + + +-------+ + + + + | Result panel 468 | + + + + + +-------+ + + | | 2022-07-13 | [facility] | 0.9 | (missing) | (missing) | | (unavailable | 05:50 | [facility] | | | | + + + +-------+ + + + + | Result panel 469 | + + + + + +------+---------+ + | | 2022-07-13 | [facility] | 93 | mg/dL | (missing) | | (unavailable | 05:50 | [facility] | | | | + + + +------+---------+ + + + | Result panel 470 | + + + + + +------+---------+ + | | 2022-07-13 | [facility] | 20 | mg/dL | (missing) | | (unavailable | 05:50 | [facility] | | | | + + + +------+---------+ + + + | Result panel 471 | + + + + + +--------+---------+ + | | 2022-07-13 | [facility] | 1.47 | mg/dL | (missing) | | (unavailable | 05:50 | [facility] | | | | + + + +--------+---------+ + + + | Result panel 472 | + + + + + +------+ + + | | 2022-07-13 | [facility] | 53 | (missing) | (missing) | | (unavailable | 05:50 | [facility] | | | | + + + +------+ + + + + | Result panel 473 | + + + + + +---------+ + + | | 2022-07-13 | [facility] | 13.60 | (missing) | (missing) | | (unavailable | 05:50 | [facility] | | | | + + + +---------+ + + + + | Result panel 474 | + + + + + +-------+ + + | | 2022-07-13 | [facility] | 139 | (missing) | (missing) | | (unavailable | 05:50 | [facility] | | | | + + + +-------+ + + + + | Result panel 475 | + + + + + +-------+ + + | | 2022-07-13 | [facility] | 3.7 | (missing) | (missing) | | (unavailable | 05:50 | [facility] | | | | + + + +-------+ + + + + | Result panel 476 | + + + + + +-------+ + + | | 2022-07-13 | [facility] | 104 | (missing) | (missing) | | (unavailable | 05:50 | [facility] | | | | + + + +-------+ + + + + | Result panel 477 | + + + + + +------+ + + | | 2022-07-13 | [facility] | 27 | (missing) | (missing) | | (unavailable | 05:50 | [facility] | | | | + + + +------+ + + + + | Result panel 478 | + + + + + +--------+ + + | | 2022-07-13 | [facility] | 11.7 | (missing) | (missing) | | (unavailable | 05:50 | [facility] | | | | + + + +--------+ + + + + | Result panel 479 | + + + + + +-------+---------+ + | | 2022-07-13 | [facility] | 8.9 | mg/dL | (missing) | | (unavailable | 05:50 | [facility] | | | | + + + +-------+---------+ + + + | Result panel 480 | + + + + + +-------+ + + | | 2022-07-13 | [facility] | 6.5 | (missing) | (missing) | | (unavailable | 05:50 | [facility] | | | | + + + +-------+ + + + + | Result panel 481 | + + + + + +-------+ + + | | 2022-07-13 | [facility] | 2.4 | (missing) | (missing) | | (unavailable | 05:50 | [facility] | | | | + + + +-------+ + + + + | Result panel 482 | + + + + + +-------+ + + | | 2022-07-13 | [facility] | 4.1 | (missing) | (missing) | | (unavailable | 05:50 | [facility] | | | | + + + +-------+ + + + + | Result panel 483 | + + + + + +--------+ + + | | 2022-07-13 | [facility] | 0.59 | (missing) | (missing) | | (unavailable | 05:50 | [facility] | | | | + + + +--------+ + + + + | Result panel 484 | + + + + + +-------+ + + | | 2022-07-13 | [facility] | 0.2 | (missing) | (missing) | | (unavailable | 05:50 | [facility] | | | | + + + +-------+ + + + + | Result panel 485 | + + + + + +------+ + + | | 2022-07-13 | [facility] | 20 | (missing) | (missing) | | (unavailable | 05:50 | [facility] | | | | + + + +------+ + + + + | Result panel 486 | + + + + + +------+ + + | | 2022-07-13 | [facility] | 42 | (missing) | (missing) | | (unavailable | 05:50 | [facility] | | | | + + + +------+ + + + + | Result panel 487 | + + + + + +-------+ + + | | 2022-07-13 | [facility] | 103 | (missing) | (missing) | | (unavailable | 05:50 | [facility] | | | | + + + +-------+ + + + + | Result panel 488 | + + + + + +-------+ + + | Blood | 2022-07-13 | [facility] | 4.6 | (missing) | (missing) | | leukocytes | 05:50 | [facility] | | | | automated | | Hospital | | | | | count | | | | | | | (number/volu | | | | | | | me) | | | | | | + + + +-------+ + + + + | Result panel 489 | + + + + + +--------+ + + | Blood | 2022-07-13 | [facility] | 3.31 | (missing) | (missing) | | erythrocytes | 05:50 | [facility] | | | | automated | | [facility] | | | | | count | | | | | | | (number/volu | | | | | | | me) | | | | | | + + + +--------+ + + + + | Result panel 490 | + + + + + +-------+ + + | Blood | 2022-07-13 | [facility] | 8.6 | (missing) | (missing) | | hemoglobin | 05:50 | [facility] | | | | measurement | | [facility] | | | | | (mass/volume | | | | | | | ) | | | | | | + + + +-------+ + + + + | Result panel 491 | + + + + + +--------+ + + | Automated | 2022-07-13 | [facility] | 27.5 | (missing) | (missing) | | blood | 05:50 | [facility] | | | | hematocrit | | [facility] | | | | + + + +--------+ + + + + | Result panel 492 | + + + + + +--------+ + + | Automated | 2022-07-13 | [facility] | 83.1 | (missing) | (missing) | | erythrocyte | 05:50 | [facility] | | | | mean | | Hospital | | | | | corpuscular | | | | | | | volume | | | | | | + + + +--------+ + + + + | Result panel 493 | + + + + + +--------+ + + | Automated | 2022-07-13 | [facility] | 26.1 | (missing) | (missing) | | erythrocyte | 05:50 | [facility] | | | | mean | | [facility] | | | | | corpuscular | | | | | | | hemoglobin | | | | | | | (mass per | | | | | | | erythrocyte) | | | | | | | | | | | | | + + + +--------+ + + + + | Result panel 494 | + + + + + +--------+ + + | Automated | 2022-07-13 | [facility] | 31.4 | (missing) | (missing) | | erythrocyte | 05:50 | [facility] | | | | mean | | Hospital | | | | | corpuscular | | | | | | | hemoglobin | | | | | | | concentratio | | | | | | | n | | | | | | | measurement | | | | | | | (mass/volume | | | | | | | ) | | | | | | + + + +--------+ + + + + | Result panel 495 | + + + + + +--------+ + + | Automated | 2022-07-13 | [facility] | 18.6 | (missing) | (missing) | | erythrocyte | 05:50 | [facility] | | | | distribution | | Hospital | | | | | width | | | | | | + + + +--------+ + + + + | Result panel 496 | + + + + + +-------+ + + | Automated | 2022-07-13 | [facility] | 192 | (missing) | (missing) | | blood | 05:50 | [facility] | | | | platelet | | [facility] | | | | | count | | | | | | | (count/volum | | | | | | | e) | | | | | | + + + +-------+ + + + + | Result panel 497 | + + + + + +--------+ + + | Automated | 2022-07-13 | [facility] | 78.1 | (missing) | (missing) | | blood | 05:50 | [facility] | | | | neutrophil | | Hospital | | | | | count as | | | | | | | percentage | | | | | | | of total | | | | | | | leukocytes | | | | | | + + + +--------+ + + + + | Result panel 498 | + + + + + +--------+ + + | Automated | 2022-07-13 | [facility] | 10.6 | (missing) | (missing) | | blood | 05:50 | [facility] | | | | lymphocyte | | Hospital | | | | | count as | | | | | | | percentage | | | | | | | ot total | | | | | | | leukocytes | | | | | | + + + +--------+ + + + + | Result panel 499 | + + + + + +-------+ + + | Automated | 2022-07-13 | [facility] | 5.9 | (missing) | (missing) | | blood | 05:50 | [facility] | | | | monocyte | | Hospital | | | | | count as | | | | | | | percentage | | | | | | | of total | | | | | | | leukocytes | | | | | | + + + +-------+ + + + + | Result panel 500 | + + + + + +-------+ + + | Automated | 2022-07-13 | [facility] | 4.5 | (missing) | (missing) | | blood | 05:50 | [facility] | | | | eosinophil | | Hospital | | | | | count as | | | | | | | percentage | | | | | | | of total | | | | | | | leukocytes | | | | | | + + + +-------+ + + + + | Result panel 501 | + + + + + +-------+ + + | Automated | 2022-07-13 | [facility] | 0.9 | (missing) | (missing) | | blood | 05:50 | [facility] | | | | | basophil | | Hospital | | | | | count as | | | | | | | percentage | | | | | | | of total | | | | | | | leukocytes | | | | | | + + + +-------+ + + + + | Result panel 502 | + + + + + +------+ + + | Serum or | 2022-07-13 | [facility] | 93 | (missing) | (missing) | | plasma | 05:50 | [facility] | | | | glucose | | Hospital | | | | | measurement | | | | | | | (mass/volume | | | | | | | ) | | | | | | + + + +------+ + + + + | Result panel 503 | + + + + + +------+ + + | Serum or | 2022-07-13 | [facility] | 20 | (missing) | (missing) | | plasma urea | 05:50 | [facility] | | | | nitrogen | | Hospital | | | | | measurement | | | | | | | (mass/volume | | | | | | | ) | | | | | | + + + +------+ + + + + | Result panel 504 | + + + + + +--------+ + + | Serum or | 2022-07-13 | [facility] | 1.47 | (missing) | (missing) | | plasma | 05:50 | [facility] | | | | creatinine | | [facility] | | | | | measurement | | | | | | | (mass/volume | | | | | | | ) | | | | | | + + + +--------+ + + + + | Result panel 505 | + + + + + +------+ + + | Glomerular | 2022-07-13 | [facility] | 53 | (missing) | (missing) | | filtration | 05:50 | [facility] | | | | | rate/1.73 sq | | Hospital | | | | | M.predicted | | | | | | | [Volume | | | | | | | Rate/Area] | | | | | | | inSerum, | | | | | | | Plasma or | | | | | | | Blood by | | | | | | | Creatinine-b | | | | | | | ased formula | | | | | | | (CKD-EPI | | | | | | | 2020) | | | | | | + + + +------+ + + + + | Result panel 506 | + + + + + +---------+ + + | Serum or | 2022-07-13 | [facility] | 13.60 | (missing) | (missing) | | plasma urea | 05:50 | [facility] | | | | | nitrogen/cre | | Hospital | | | | | atinine mass | | | | | | | ratio | | | | | | + + + +---------+ + + + + | Result panel 507 | + + + + + +-------+ + + | Serum or | 2022-07-13 | [facility] | 139 | (missing) | (missing) | | plasma | 05:50 | [facility] | | | | sodium | | Hospital | | | | | measurement | | | | | | | (moles/volum | | | | | | | e) | | | | | | + + + +-------+ + + + + | Result panel 508 | + + + + + +-------+ + + | Serum or | 2022-07-13 | [facility] | 3.7 | (missing) | (missing) | | plasma | 05:50 | [facility] | | | | potassium | | Hospital | | | | | measurement | | | | | | | (moles/volum | | | | | | | e) | | | | | | + + + +-------+ + + + + | Result panel 509 | + + + + + +-------+ + + | Serum or | 2022-07-13 | [facility] | 104 | (missing) | (missing) | | plasma | 05:50 | [facility] | | | | chloride | | Hospital | | | | | measurement | | | | | | | (moles/volum | | | | | | | e) | | | | | | + + + +-------+ + + + + | Result panel 510 | + + + + + +------+ + + | Serum or | 2022-07-13 | [facility] | 27 | (missing) | (missing) | | plasma | 05:50 | [facility] | | | | | carbon | | Hospital | | | | | dioxide, | | | | | | | total | | | | | | | measurement | | | | | | | (moles/volum | | | | | | | e) | | | | | | + + + +------+ + + + + | Result panel 511 | + + + + + +--------+ + + | Serum or | 2022-07-13 | [facility] | 11.7 | (missing) | (missing) | | plasma anion | 05:50 | [facility] | | | | gap 4 | | [facility] | | | | + + + +--------+ + + + + | Result panel 512 | + + + + + +-------+ + + | Serum or | 2022-07-13 | [facility] | 8.9 | (missing) | (missing) | | plasma | 05:50 | [facility] | | | | calcium | | [facility] | | | | | measurement | | | | | | | (mass/volume | | | | | | | ) | | | | | | + + + +-------+ + + + + | Result panel 513 | + + + + + +-------+ + + | Serum or | 2022-07-13 | [facility] | 6.5 | (missing) | (missing) | | plasma | 05:50 | [facility] | | | | protein | | Hospital | | | | | measurement | | | | | | | (mass/volume | | | | | | | ) | | | | | | + + + +-------+ + + + + | Result panel 514 | + + + + + +-------+ + + | Serum or | 2022-07-13 | [facility] | 2.4 | (missing) | (missing) | | plasma | 05:50 | [facility] | | | | albumin | | [facility] | | | | | measurement | | | | | | | (mass/volume | | | | | | | ) | | | | | | + + + +-------+ + + + + | Result panel 515 | + + + + + +-------+ + + | Serum | 2022-07-13 | [facility] | 4.1 | (missing) | (missing) | | globulin | 05:50 | [facility] | | | | measurement | | [facility] | | | | | (mass/volume | | | | | | | ) | | | | | | + + + +-------+ + + + + | Result panel 516 | + + + + + +--------+ + + | Serum or | 2022-07-13 | [facility] | 0.59 | (missing) | (missing) | | plasma | 05:50 | [facility] | | | | albumin/glob | | Hospital | | | | | ulin mass | | | | | | | ratio | | | | | | + + + +--------+ + + + + | Result panel 517 | + + + + + +-------+ + + | Serum or | 2022-07-13 | [facility] | 0.2 | (missing) | (missing) | | plasma total | 05:50 | [facility] | | | | bilirubin | | Hospital | | | | | measurement | | | | | | | (mass/volume | | | | | | | ) | | | | | | + + + +-------+ + + + + | Result panel 518 | + + + + + +------+ + + | Serum or | 2022-07-13 | [facility] | 20 | (missing) | (missing) | | plasma | 05:50 | [facility] | | | | | aspartate | | Hospital | | | | | aminotransfe | | | | | | | rase | | | | | | | measurement | | | | | | | (enzymatic | | | | | | | activity/vol | | | | | | | ume) | | | | | | + + + +------+ + + + + | Result panel 519 | + + + + + +------+ + + | Serum or | 2022-07-13 | [facility] | 42 | (missing) | (missing) | | plasma | 05:50 | [facility] | | | | | alanine | | Hospital | | | | | aminotransfe | | | | | | | rase | | | | | | | measurement | | | | | | | (enzymatic | | | | | | | activity/vol | | | | | | | ume) | | | | | | + + + +------+ + + + + | Result panel 520 | + + + + + +-------+ + + | Serum or | 2022-07-13 | [facility] | 103 | (missing) | (missing) | | plasma | 05:50 | [facility] | | | | alkaline | | Hospital | | | | | phosphatase | | | | | | | measurement | | | | | | | (enzymatic | | | | | | | activity/vol | | | | | | | ume) | | | | | | + + + +-------+ + + + + | Result panel 521 | + + + + + +------+ + + | | 2022-07-13 | [facility] | 93 | (missing) | (missing) | | (unavailable | 11:29 | [facility] ) | | [facility] | | | | + + + +------+ + + + + | Result panel 522 | + + + + + +------+ + + | Whole blood | 2022-07-13 | [facility] | 93 | (missing) | (missing) | | glucose | 11:29 | [facility] | | | | | measurement | | Hospital | | | | | using | | | | | | | handheld | | | | | | | analyzer | | | | | | | (mass/volume | | | | | | | ) | | | | | | + + + +------+ + + + + | Result panel 523 | + + + + + + + + + | Gram stain | 2022-07-13 | [facility] | See scanned | (missing) | (missing) | | microscopy | 18:19 | [facility] report. | | | | | | [facility] | | | | + + + + + + + + + | Result panel 524 | + + + + + + + + + | Aerobic | 2022-07-13 | [facility] | SEE | (missing) | (missing) | | bacterial | 18:19 | [facility] | | | | culture | | Hospital | REPORT | | | + + + + + + + + + | Result panel 525 | + + + + + + + + + | Bacterial | 2022-07-13 | [facility] | SEE | (missing) | (missing) | | anaerobic | 18:19 | [facility] | | | | culture | | Hospital | REPORT | | | + + + + + + + + + | Result panel 526 | + + + + + +-------+ + + | Serum or | 2022-07-27 | [facility] | 1.5 | (missing) | (missing) | | plasma | 13:38 | [facility] | | | | | lactate | | Hospital | | | | | measurement | | | | | | | (moles/volum | | | | | | | e) | | | | | | + + + +-------+ + + + + | Result panel 527 | + + + + + + + + + | Respiratory | 2022-07-27 | [facility] | NEGATIVE | (missing) | (missing) | | specimen | 13:41 | [facility] | | | | | 2019 novel | | Hospital | | | | | coronavirus | | | | | | | RNA | | | | | | | detection | | | | | | + + + + + + + + + | Result panel 528 | + + + + + + + + + | Influenza | 2022-07-27 | [facility] | NEGATIVE | (missing) | (missing) | | virus A RNA | 13:41 | [facility] | | | | [Presence] | | Hospital | | | | | in | | | | | | | Respiratory | | | | | | | specimen by | | | | | | | JEFFERY | | | | | | | withprobe | | | | | | | detection | | | | | | + + + + + + + + + | Result panel 529 | + + + + + + + + + | Influenza | 2022-07-27 | [facility] | NEGATIVE | (missing) | (missing) | | virus B RNA | 13:41 | [facility] | | | | [Presence] | | Hospital | | | | | in | | | | | | | Respiratory | | | | | | | specimen by | | | | | | | JEFFERY | | | | | | | withprobe | | | | | | | detection | | | | | | + + + + + + + + + | Result panel 530 | + + + + + + + + + | Respiratory | 2022-07-27 | [facility] | NEGATIVE | (missing) | (missing) | | syncytial | 13:41 | [facility] | | | | | virus (RSV) | | Hospital | | | | | RNA | | | | | | | detection by | | | | | | | probe and | | | | | | | target | | | | | | | amplificatio | | | | | | | n method in | | | | | | | culture | | | | | | | isolate | | | | | | + + + + + + + + + | Result panel 531 | + + + + + + + + + | Gram stain | 2022-07-29 | [facility] | See scanned | (missing) | (missing) | | microscopy | 14:24 | [facility] report. | | | | | | [facility] | | | | + + + + + + + + + | Result panel 532 | + + + + + + + + + | Aerobic | 2022-07-29 | [facility] | SEE | (missing) | (missing) | | bacterial | 14:24 | [facility]ATE | | | | culture | | Hospital | REPORT | | | + + + + + + + + + | Result panel 533 | + + + + + + + + + | Bacterial | 2022-07-29 | [facility] | SEE | (missing) | (missing) | | anaerobic | 14:24 | [facility] | | | | culture | | Hospital | REPORT | | | + + + + + + + + + | Result panel 534 | + + + + + +-----+ + + | Blood ABO | 2022-08-04 | [facility] | O | (missing) | (missing) | | group typing | 06:35 | [facility] | | | | [facility] | | | | + + + +-----+ + + + + | Result panel 535 | + + + + + + + + + | Rh blood | 2022-08-04 | [facility] | POSITIVE | (missing) | (missing) | | group typing | 06:35 | [facility] | | | [facility] | | | | + + + + + + + + + | Result panel 536 | + + + + + + + + + | Serum or | 2022-08-04 | [facility] | NEGATIVE | (missing) | (missing) | | plasma | 06:35 | [facility] | | | | | indirect | | Hospital | | | | | antiglobulin | | | | | | | test using | | | | | | | poly | | | | | | | specific | | | | | | | reagent | | | | | | + + + + + + + + + | Result panel 537 | + + + + + + + + + | Immediate | 2022-08-04 | [facility] | COMPATIBLE | (missing) | (missing) | | spin | 06:35 | [facility] | | | | crossmatch | | Hospital | | | | + + + + + + + + + | Result panel 538 | + + + + + + + + + | Immediate | 2022-08-04 | [facility] | COMPATIBLE | (missing) | (missing) | | spin | 06:35 | [facility] | crossmatch | | [facility] | | | | + + + + + + + + + | Result panel 539 | + + + + + + + + + | Num units | 2022-08-04 | [facility] | | (missing) | (missing) | | trans packed | 06:35 | [facility] | [phone] | | | | RBC | | Hospital | 00A | | | + + + + + + + + + | Result panel 540 | + + + + + + + + + | Num units | 2022-08-04 | [facility] | | (missing) | (missing) | | trans packed | 06:35 | [facility] | [phone] | | | | RBC | | Hospital | 00I | | | + + + + + + + + + | Result panel 541 | + + + + + + + + + | Transf Band | 2022-08-04 | [facility] | BLOOD IN | (missing) | (missing) | | Num Patient | 06:35 | [facility] | LAB | | | | | | Hospital | | | | + + + + + + + + + | Result panel 542 | + + + + + + + + + | Gram stain | 2022-08-04 | [facility] | See scanned | (missing) | (missing) | | microscopy | 15:40 | [facility] | report. | | | | | | Hospital | | | | + + + + + + + + + | Result panel 543 | + + + + + + + + + | Aerobic | 2022-08-04 | [facility] | SEE | (missing) | (missing) | | bacterial | 15:40 | [facility] SEPARATE | | | | culture | | Hospital | REPORT | | | + + + + + + + + + | Result panel 544 | + + + + + + + + + | Bacterial | 2022-08-04 | [facility] | SEE | (missing) | (missing) | | anaerobic | 15:40 | [facility] SEPARATE | | | | culture | | Hospital | REPORT | | | + + + + + + + + + | Result panel 545 | + + + + + +-------+ + + | Serum or | 2022-08-06 | [facility] | 4.6 | (missing) | (missing) | | plasma | 13:45 | [facility] | | | | | protein | | Hospital | | | | | measurement | | | | | | | (mass/volume | | | | | | | ) | | | | | | + + + +-------+ + + + + | Result panel 546 | + + + + + +-------+ + + | Serum or | 2022-08-06 | [facility] | 1.3 | (missing) | (missing) | | plasma | 13:45 | [facility] | | | | | albumin | | Hospital | | | | | measurement | | | | | | | (mass/volume | | | | | | | ) | | | | | | + + + +-------+ + + + + | Result panel 547 | + + + + + +-------+ + + | Serum | 2022-08-06 | [facility] | 3.3 | (missing) | (missing) | | globulin | 13:45 | [facility] | | | | measurement | | [facility] | | | | | (mass/volume | | | | | | | ) | | | | | | + + + +-------+ + + + + | Result panel 548 | + + + + + +--------+ + + | Serum or | 2022-08-06 | [facility] | 0.39 | (missing) | (missing) | | plasma | 13:45 | [facility] | | | | | albumin/glob | | [facility] | | | | | ulin mass | | | | | | | ratio | | | | | | + + + +--------+ + + + + | Result panel 549 | + + + + + +-------+ + + | Serum or | 2022-08-06 | [facility] | 0.2 | (missing) | (missing) | | plasma total | 13:45 | [facility] | | | | | bilirubin | | [facility] | | | | | measurement | | | | | | | (mass/volume | | | | | | | ) | | | | | | + + + +-------+ + + + + | Result panel 550 | + + + + + +-----+ + + | Serum or | 2022-08-06 | [facility] | 7 | (missing) | (missing) | | plasma | 13:45 | [facility] | | | | | aspartate | | [facility] | | | | | aminotransfe | | | | | | | rase | | | | | | | measurement | | | | | | | (enzymatic | | | | | | | activity/vol | | | | | | | ume) | | | | | | + + + +-----+ + + + + | Result panel 551 | + + + + + +-----+ + + | Serum or | 2022-08-06 | [facility] | 7 | (missing) | (missing) | | plasma | 13:45 | [facility] | | | | | alanine | | [facility] | | | | | aminotransfe | | | | | | | rase | | | | | | | measurement | | | | | | | (enzymatic | | | | | | | activity/vol | | | | | | | ume) | | | | | | + + + +-----+ + + + + | Result panel 552 | + + + + + +------+ + + | Serum or | 2022-08-06 | [facility] | 66 | (missing) | (missing) | | plasma | 13:45 | [facility] | | | | | alkaline | | [facility] | | | | | phosphatase | | | | | | | measurement | | | | | | | (enzymatic | | | | | | | activity/vol | | | | | | | ume) | | | | | | + + + +------+ + + + + | Result panel 553 | + + + + + + + + + | Respiratory | 2022-08-07 | [facility] | NEGATIVE | (missing) | (missing) | | specimen | 06:25 | [facility] | | | | | 2019 novel | | [facility] | | | | | coronavirus | | | | | | | RNA | | | | | | | detection | | | | | | + + + + + + + + + | Result panel 554 | + + + + + +-------+ + + | Blood | 2022-08-12 | [facility] | 5.8 | (missing) | (missing) | | leukocytes | 05:30 | [facility] | | | | | automated | | [facility] | | | | | count | | | | | | | (number/volu | | | | | | | me) | | | | | | + + + +-------+ + + + + | Result panel 555 | + + + + + +--------+ + + | Blood | 2022-08-12 | [facility] | 2.97 | (missing) | (missing) | | erythrocytes | 05:30 | [facility] | | | automated | | [facility] | | | | | count | | | | | | | (number/volu | | | | | | | me) | | | | | | + + + +--------+ + + + + | Result panel 556 | + + + + + +-------+ + + | Blood | 2022-08-12 | [facility] | 8.5 | (missing) | (missing) | | hemoglobin | 05:30 | [facility] | | | measurement | | [facility] | | | | | (mass/volume | | | | | | | ) | | | | | | + + + +-------+ + + + + | Result panel 557 | + + + + + +--------+ + + | Automated | 2022-08-12 | [facility] | 25.8 | (missing) | (missing) | | blood | 05:30 | [facility] | | | | hematocrit | | [facility] | | | | + + + +--------+ + + + + | Result panel 558 | + + + + + +--------+ + + | Automated | 2022-08-12 | [facility] | 87.0 | (missing) | (missing) | | erythrocyte | 05:30 | [facility] | | | | | mean | | [facility] | | | | | corpuscular | | | | | | | volume | | | | | | + + + +--------+ + + + + | Result panel 559 | + + + + + +--------+ + + | Automated | 2022-08-12 | [facility] | 28.5 | (missing) | (missing) | | erythrocyte | 05:30 | [facility] | | | | | mean | | [facility] | | | | | corpuscular | | | | | | | hemoglobin | | | | | | | (mass per | | | | | | | erythrocyte) | | | | | | | | | | | | | + + + +--------+ + + + + | Result panel 560 | + + + + + +--------+ + + | Automated | 2022-08-12 | [facility] | 32.7 | (missing) | (missing) | | erythrocyte | 05:30 | [facility] | | | | | mean | | [facility] | | | | | corpuscular | | | | | | | hemoglobin | | | | | | | concentratio | | | | | | | n | | | | | | | measurement | | | | | | | (mass/volume | | | | | | | ) | | | | | | + + + +--------+ + + + + | Result panel 561 | + + + + + +--------+ + + | Automated | 2022-08-12 | [facility] | 18.4 | (missing) | (missing) | | erythrocyte | 05:30 | [facility] | | | | | distribution | | [facility] | | | | | width | | | | | | + + + +--------+ + + + + | Result panel 562 | + + + + + +-------+ + + | Automated | 2022-08-12 | [facility] | 198 | (missing) | (missing) | | blood | 05:30 | [facility] | | | | platelet | | [facility] | | | | | count | | | | | | | (count/volum | | | | | | | e) | | | | | | + + + +-------+ + + + + | Result panel 563 | + + + + + +--------+ + + | Automated | 2022-08-12 | [facility] | 81.9 | (missing) | (missing) | | blood | 05:30 | [facility] | | | | neutrophil | | [facility] | | | | | count as | | | | | | | percentage | | | | | | | of total | | | | | | | leukocytes | | | | | | + + + +--------+ + + + + | Result panel 564 | + + + + + +-------+ + + | Automated | 2022-08-12 | [facility] | 8.8 | (missing) | (missing) | | blood | 05:30 | [facility] | | | | lymphocyte | | [facility] | | | | | count as | | | | | | | percentage | | | | | | | ot total | | | | | | | leukocytes | | | | | | + + + +-------+ + + + + | Result panel 565 | + + + + + +-------+ + + | Automated | 2022-08-12 | [facility] | 5.0 | (missing) | (missing) | | blood | 05:30 | [facility] | | | | | monocyte | | [facility] | | | | | count as | | | | | | | percentage | | | | | | | of total | | | | | | | leukocytes | | | | | | + + + +-------+ + + + + | Result panel 566 | + + + + + +-------+ + + | Automated | 2022-08-12 | [facility] | 4.0 | (missing) | (missing) | | blood | 05:30 | [facility] | | | | | eosinophil | | [facility] | | | | | count as | | | | | | | percentage | | | | | | | of total | | | | | | | leukocytes | | | | | | + + + +-------+ + + + + | Result panel 567 | + + + + + +-------+ + + | Automated | 2022-08-12 | [facility] | 0.3 | (missing) | (missing) | | blood | 05:30 | [facility] | | | | | basophil | | [facility] | | | | | count as | | | | | | | percentage | | | | | | | of total | | | | | | | leukocytes | | | | | | + + + +-------+ + + + + | Result panel 568 | + + + + + +------+ + + | Serum or | 2022-08-12 | [facility] | 85 | (missing) | (missing) | | plasma | 05:30 | [facility] | | | | | glucose | | [facility] | | | | | measurement | | | | | | | (mass/volume | | | | | | | ) | | | | | | + + + +------+ + + + + | Result panel 569 | + + + + + +------+ + + | Serum or | 2022-08-12 | [facility] | 12 | (missing) | (missing) | | plasma urea | 05:30 | [facility] | | | | nitrogen | | [facility] | | | | | measurement | | | | | | | (mass/volume | | | | | | | ) | | | | | | + + + +------+ + + + + | Result panel 570 | + + + + + +--------+ + + | Serum or | 2022-08-12 | [facility] | 1.19 | (missing) | (missing) | | plasma | 05:30 | [facility] | | | | creatinine | | [facility] | | | | | measurement | | | | | | | (mass/volume | | | | | | | ) | | | | | | + + + +--------+ + + + + | Result panel 571 | + + + + + +------+ + + | Glomerular | 2022-08-12 | [facility] | 68 | (missing) | (missing) | | filtration | 05:30 | [facility] | | | | | rate/1.73 sq | | Hospital | | | | | M.predicted | | | | | | | [Volume | | | | | | | Rate/Area] | | | | | | | inSerum, | | | | | | | Plasma or | | | | | | | Blood by | | | | | | | Creatinine-b | | | | | | | ased formula | | | | | | | (CKD-EPI | | | | | | | 2020) | | | | | | + + + +------+ + + + + | Result panel 572 | + + + + + +---------+ + + | Serum or | 2022-08-12 | [facility] | 10.08 | (missing) | (missing) | | plasma urea | 05:30 | [facility] | | | | | nitrogen/cre | | Hospital | | | | | atinine mass | | | | | | | ratio | | | | | | + + + +---------+ + + + + | Result panel 573 | + + + + + +-------+ + + | Serum or | 2022-08-12 | [facility] | 137 | (missing) | (missing) | | plasma | 05:30 | [facility] | | | | | sodium | | [facility] | | | | | measurement | | | | | | | (moles/volum | | | | | | | e) | | | | | | + + + +-------+ + + + + | Result panel 574 | + + + + + +-------+ + + | Serum or | 2022-08-12 | [facility] | 4.6 | (missing) | (missing) | | plasma | 05:30 | [facility] | | | | potassium | | [facility] | | | | | measurement | | | | | | | (moles/volum | | | | | | | e) | | | | | | + + + +-------+ + + + + | Result panel 575 | + + + + + +-------+ + + | Serum or | 2022-08-12 | [facility] | 106 | (missing) | (missing) | | plasma | 05:30 | [facility] | | | | | chloride | | [facility] | | | | | measurement | | | | | | | (moles/volum | | | | | | | e) | | | | | | + + + +-------+ + + + + | Result panel 576 | + + + + + +------+ + + | Serum or | 2022-08-12 | [facility] | 26 | (missing) | (missing) | | plasma | 05:30 | [facility] | | | | | carbon | | Hospital | | | | | dioxide, | | | | | | | total | | | | | | | measurement | | | | | | | (moles/volum | | | | | | | e) | | | | | | + + + +------+ + + + + | Result panel 577 | + + + + + +-------+ + + | Serum or | 2022-08-12 | [facility] | 9.6 | (missing) | (missing) | | plasma anion | 05:30 | [facility] | | | | | gap 4 | | [facility] | | | | + + + +-------+ + + + + | Result panel 578 | + + + + + +-------+ + + | Serum or | 2022-08-12 | [facility] | 8.1 | (missing) | (missing) | | plasma | 05:30 | [facility] | | | | | calcium | | [facility] | | | | | measurement | | | | | | | (mass/volume | | | | | | | ) | | | | | | + + + +-------+ + + + + | Result panel 579 | + + + + + +-------+ + + | Serum or | 2022-08-12 | [facility] | 1.7 | (missing) | (missing) | | plasma | 05:30 | [facility] | | | | | magnesium | | [facility] | | | | | measurement | | | | | | | (mass/volume | | | | | | | ) | | | | | | + + + +-------+ + + + + | MICROALBUMIN, URINE (RANDOM) | + + + + + + + + + | CREATININE, | 2022-03-06 | [facility] | 124.36 | mg/dL | (missing) | | URINE | 11:00 | [facility] | | | | | [facility] | | | | + + + + + + + | MICROALB, | 2022-03-06 | [facility] | 6.0 | mg/dL | (missing) | | URINE | 11:00 | [facility] | | | | | | | [facility] | | | | + + + + + + + | | 2022-03-06 | [facility] | 48.2 | mg/g_creat | (missing) | | MICROALB/CRE | 11:00 | [facility] | | | | | AT | | , [facility] | | | | + + + + + + + + + | IRON DEFICIENCY PANEL | + + + + + + + + + | FERRITIN | 2022-10-14 | [facility] | 818.0 | ng/ml | (missing) | | | 09:02 | [facility] | | | | | [facility] | | | | + + + + + + + | IRON | 2022-10-14 | [facility] | 63.29 | ug/dL | (missing) | | | 09:02 | [facility] | | | | | | | [facility] | | | | + + + + + + + | TIBC | 2022-10-14 | [facility] | 332 | ug/dL | (missing) | | | 09:02 | [facility] | | | | | | [facility] | | | | + + + + + + + | UIBC | 2022-10-14 | [facility] | 269 | (missing) | (missing) | | | 09:02 | [facility] | | | | | | [facility] | | | | + + + + + + + | % | 2022-10-14 | [facility] | 19.1 | % | (missing) | | SATURATION | 09:02 | [facility] | | | | | | | [facility] | | | | + + + + + + + | TRANSFERRIN | 2022-10-14 | [facility] | 237.32 | mg/dL | (missing) | | | 09:02 | [facility] | | | | | | | [facility] | | | | + + + + + + + + + | LIPID PANEL | + + + + + +--------+ + + | VLDL | 2021-04-14 | [facility] | 36 | mg/dL | (missing) | | | 07:05 | [facility] | | | | | [facility] | | | | + + + +--------+ + + | LDL | 2021-04-14 | [facility] | 47 | mg/dL | (missing) | | | 07:05 | [facility] | | | | | | | [facility] | | | | + + + +--------+ + + | HDL | 2021-04-14 | [facility] | 22.6 | mg/dL | (missing) | | | 07:05 | [facility] | | | | | | | [facility] | | | | + + + +--------+ + + | CHOLESTEROL | 2021-04-14 | [facility] | 105 | mg/dL | (missing) | | | 07:05 | [facility] | | | | | | | [facility] | | | | + + + +--------+ + + | | 2021-04-14 | [facility] | 179 | mg/dL | (missing) | | TRIGLYCERIDE | 07:05 | [facility] | | | | | S | | [facility] | | | | + + + +--------+ + + | NON-HDL | 2021-04-14 | [facility] | 82 | mg/dL | (missing) | | CHOL | 07:05 | [facility] | | | | | | | [facility] | | | | + + + +--------+ + + | CHOL/HDL | 2021-04-14 | [facility] | 4.6 | (missing) | (missing) | | | 07:05 | [facility] | | | | | | | [facility] | | | | + + + +--------+ + + + + | LIPID PANEL | + + + + + +--------+ + + | VLDL | 2022-03-06 | [facility] | 30 | mg/dL | (missing) | | | 11:00 | [facility] | | | | | | | [facility] | | | | + + + +--------+ + + | LDL | 2022-03-06 | [facility] | 52 | mg/dL | (missing) | | | 11:00 | [facility] | | | | | | | [facility] | | | | + + + +--------+ + + | HDL | 2022-03-06 | [facility] | 26.6 | mg/dL | (missing) | | | 11:00 | [facility] | | | | | | | [facility] | | | | + + + +--------+ + + | CHOLESTEROL | 2022-03-06 | [facility] | 109 | mg/dL | (missing) | | | 11:00 | [facility] | | | | | | | [facility] | | | | + + + +--------+ + + | | 2022-03-06 | [facility] | 150 | mg/dL | (missing) | | TRIGLYCERIDE | 11:00 | [facility] | | | | | S | | [facility] | | | | + + + +--------+ + + | NON-HDL | 2022-03-06 | [facility] | 82 | mg/dL | (missing) | | CHOL | 11:00 | [facility] | | | | | | | [facility] | | | | + + + +--------+ + + | CHOL/HDL | 2022-03-06 | [facility] | 4.1 | (missing) | (missing) | | | 11:00 | [facility] | | | | | | | [facility] | | | | + + + +--------+ + + + + | COMPREHENSIVE METABOLIC PANEL | + + + + + +--------+ + + | GLOBULIN | 2021-04-14 | [facility] | 2.4 | g/dl | (missing) | | | 07:05 | [facility] | | | | | | | [facility] | | | | + + + +--------+ + + | ALKALINE | 2021-04-14 | [facility] | 95 | U/L | (missing) | | PHOS | 07:05 | [facility] | | | | | | | [facility] | | | | + + + +--------+ + + | ALT(SGPT) | 2021-04-14 | [facility] | 27 | U/L | (missing) | | | 07:05 | [facility] | | | | | | | [facility] | | | | + + + +--------+ + + | ALBUMIN | 2021-04-14 | [facility] | 4.1 | g/dl | (missing) | | | 07:05 | [facility] | | | | | | | [facility] | | | | + + + +--------+ + + | A/G RATIO | 2021-04-14 | [facility] | 1.7 | (missing) | (missing) | | | 07:05 | [facility] | | | | | | [facility] | | | | + + + +--------+ + + | CALCIUM | 2021-04-14 | [facility] | 9.4 | mg/dL | (missing) | | | 07:05 | [facility] | | | | | | | [facility] | | | | + + + +--------+ + + | ANION GAP | 2021-04-14 | [facility] | 13.9 | (missing) | (missing) | | | 07:05 | [facility] | | | | | | [facility] | | | | + + + +--------+ + + | AST(SGOT) | 2021-04-14 | [facility] | 20 | U/L | (missing) | | | 07:05 | [facility] | | | | | | [facility] | | | | + + + +--------+ + + | BILIRUBIN, | 2021-04-14 | [facility] | 0.7 | mg/dL | (missing) | | TOTAL | 07:05 | [facility] | | | | | | [facility] | | | | + + + +--------+ + + | CARBON | 2021-04-14 | [facility] | 24 | meq/L | (missing) | | DIOXIDE | 07:05 | [facility] | | | | | | | [facility] | | | | + + + +--------+ + + | CHLORIDE | 2021-04-14 | [facility] | 106 | meq/L | (missing) | | | 07:05 | [facility] | | | | | | | [facility] | | | | + + + +--------+ + + | CREATININE, | 2021-04-14 | [facility] | 1.65 | mg/dL | (missing) | | SERUM | 07:05 | [facility] | | | | | | | [facility] | | | | + + + +--------+ + + | GLUCOSE | 2021-04-14 | [facility] | 94 | mg/dL | (missing) | | | 07:05 | [facility] | | | | | | | [facility] | | | | + + + +--------+ + + | POTASSIUM | 2021-04-14 | [facility] | 4.9 | meq/L | (missing) | | | 07:05 | [facility] | | | | | | | [facility] | | | | + + + +--------+ + + | PROTEIN | 2021-04-14 | [facility] | 6.5 | g/dL | (missing) | | | 07:05 | [facility] | | | | | | | [facility] | | | | + + + +--------+ + + | SODIUM | 2021-04-14 | [facility] | 139 | meq/L | (missing) | | | 07:05 | [facility] | | | | | | | [facility] | | | | + + + +--------+ + + | UREA | 2021-04-14 | [facility] | 29 | mg/dL | (missing) | | NITROGEN | 07:05 | [facility] | | | | | | | [facility] | | | | + + + +--------+ + + | | 2021-04-14 | [facility] | 17.6 | (missing) | (missing) | | BUN/CREAT.RA | 07:05 | [facility] | | | | | [facility] | | [facility] | | | | + + + +--------+ + + | GFR | 2021-04-14 | [facility] | 42 | ml/min | (missing) | | ESTIMATION | 07:05 | [facility] | | | | | | | [facility] | | | | + + + +--------+ + + + + | COMPREHENSIVE METABOLIC PANEL | + + + + + +--------+ + + | GLOBULIN | 2022-03-06 | [facility] | 2.3 | g/dl | (missing) | | | 11:00 | [facility] | | | | | | | [facility] | | | | + + + +--------+ + + | ALKALINE | 2022-03-06 | [facility] | 93 | U/L | (missing) | | PHOS | 11:00 | [facility] | | | | | | | [facility] | | | | + + + +--------+ + + | ALT(SGPT) | 2022-03-06 | [facility] | 25 | U/L | (missing) | | | 11:00 | [facility] | | | | | | | [facility] | | | | + + + +--------+ + + | ALBUMIN | 2022-03-06 | [facility] | 4.3 | g/dl | (missing) | | | 11:00 | [facility] | | | | | | | [facility] | | | | + + + +--------+ + + | A/G RATIO | 2022-03-06 | [facility] | 1.9 | (missing) | (missing) | | | 11:00 | [facility] | | | | | | | [facility] | | | | + + + +--------+ + + | CALCIUM | 2022-03-06 | [facility] | 9.6 | mg/dL | (missing) | | | 11:00 | [facility] | | | | | | | [facility] | | | | + + + +--------+ + + | ANION GAP | 2022-03-06 | [facility] | 14.2 | (missing) | (missing) | | | 11:00 | [facility] | | | | | | | [facility] | | | | + + + +--------+ + + | AST(SGOT) | 2022-03-06 | [facility] | 17 | U/L | (missing) | | | 11:00 | [facility] | | | | | | | [facility] | | | | + + + +--------+ + + | BILIRUBIN, | 2022-03-06 | [facility] | 0.8 | mg/dL | (missing) | | TOTAL | 11:00 | [facility] | | | | | | | [facility] | | | | + + + +--------+ + + | CARBON | 2022-03-06 | [facility] | 24 | meq/L | (missing) | | DIOXIDE | 11:00 | [facility] | | | | | | | [facility] | | | | + + + +--------+ + + | CHLORIDE | 2022-03-06 | [facility] | 105 | meq/L | (missing) | | | 11:00 | [facility] | | | | | | | [facility] | | | | + + + +--------+ + + | CREATININE, | 2022-03-06 | [facility] | 1.72 | mg/dL | (missing) | | SERUM | 11:00 | [facility] | | | | | | | [facility] | | | | + + + +--------+ + + | GLUCOSE | 2022-03-06 | [facility] | 92 | mg/dL | (missing) | | | 11:00 | [facility] | | | | | | | [facility] | | | | + + + +--------+ + + | POTASSIUM | 2022-03-06 | [facility] | 5.2 | meq/L | (missing) | | | 11:00 | [facility] | | | | | | | [facility] | | | | + + + +--------+ + + | PROTEIN | 2022-03-06 | [facility] | 6.6 | g/dL | (missing) | | | 11:00 | [facility] | | | | | | | [facility] | | | | + + + +--------+ + + | SODIUM | 2022-03-06 | [facility] | 138 | meq/L | (missing) | | | 11:00 | [facility] | | | | | | | [facility] | | | | + + + +--------+ + + | UREA | 2022-03-06 | [facility] | 41 | mg/dL | (missing) | | NITROGEN | 11:00 | [facility] | | | | | | | , [facility] | | | | + + + +--------+ + + | | 2022-03-06 | [facility] | 23.8 | (missing) | (missing) | | BUN/CREAT.RA | 11:00 | [facility] | | | | | [facility] | | [facility] | | | | + + + +--------+ + + | GFR | 2022-03-06 | [facility] | 40 | ml/min | (missing) | | ESTIMATION | 11:00 | [facility] | | | | | | | [facility] | | | | + + + +--------+ + + | GFR | 2022-03-06 | [facility] | 40 | ml/min | (missing) | | ESTIMATION | 11:00 | [facility] | | | | | | | , [facility] | | | | + + + +--------+ + + + + | COMPREHENSIVE METABOLIC PANEL | + + + + + +--------+ + + | GLOBULIN | 2022-07-22 | [facility] | 3.2 | g/dl | (missing) | | | 09:44 | [facility] | | | | | | | [facility] | | | | + + + +--------+ + + | ALKALINE | 2022-07-22 | [facility] | 81 | U/L | (missing) | | PHOS | 09:44 | [facility] | | | | | | | [facility] | | | | + + + +--------+ + + | ALT(SGPT) | 2022-07-22 | [facility] | 29 | U/L | (missing) | | | 09:44 | [facility] | | | | | | | [facility] | | | | + + + +--------+ + + | ALBUMIN | 2022-07-22 | [facility] | 3.9 | g/dl | (missing) | | | 09:44 | [facility] | | | | | | | [facility] | | | | + + + +--------+ + + | A/G RATIO | 2022-07-22 | [facility] | 1.2 | (missing) | (missing) | | | 09:44 | [facility] | | | | | | | [facility] | | | | + + + +--------+ + + | CALCIUM | 2022-07-22 | [facility] | 9.8 | mg/dL | (missing) | | | 09:44 | [facility] | | | | | | | [facility] | | | | + + + +--------+ + + | ANION GAP | 2022-07-22 | [facility] | 14.7 | (missing) | (missing) | | | 09:44 | [facility] | | | | | | | [facility] | | | | + + + +--------+ + + | AST(SGOT) | 2022-07-22 | [facility] | 18 | U/L | (missing) | | | 09:44 | [facility] | | | | | | | , [facility] | | | | + + + +--------+ + + | BILIRUBIN, | 2022-07-22 | [facility] | 0.4 | mg/dL | (missing) | | TOTAL | 09:44 | [facility] | | | | | | | [facility] | | | | + + + +--------+ + + | CARBON | 2022-07-22 | [facility] | 28 | meq/L | (missing) | | DIOXIDE | 09:44 | MED[facility] | | | | | | | , [facility] | | | | + + + +--------+ + + | CHLORIDE | 2022-07-22 | [facility] | 103 | meq/L | (missing) | | | 09:44 | [facility] | | | | | | | [facility] | | | | + + + +--------+ + + | CREATININE, | 2022-07-22 | [facility] | 1.16 | mg/dL | (missing) | | SERUM | 09:44 | [facility] | | | | | | | , [facility] | | | | + + + +--------+ + + | GLUCOSE | 2022-07-22 | [facility] | 89 | mg/dL | (missing) | | | 09:44 | [facility] | | | | | | | [facility] | | | | + + + +--------+ + + | POTASSIUM | 2022-07-22 | [facility] | 3.7 | meq/L | (missing) | | | 09:44 | [facility] | | | | | | | [facility] | | | | + + + +--------+ + + | PROTEIN | 2022-07-22 | [facility] | 7.1 | g/dL | (missing) | | | 09:44 | [facility] | | | | | | | [facility] | | | | + + + +--------+ + + | SODIUM | 2022-07-22 | [facility] | 142 | meq/L | (missing) | | | 09:44 | [facility] | | | | | | | [facility] | | | | + + + +--------+ + + | UREA | 2022-07-22 | [facility] | 20 | mg/dL | (missing) | | NITROGEN | 09:44 | [facility] | | | | | | | [facility] | | | | + + + +--------+ + + | | 2022-07-22 | [facility] | 17.2 | (missing) | (missing) | | BUN/CREAT.RA | 09:44 | [facility] | | | | | [facility] | | [facility] | | | | + + + +--------+ + + | GFR | 2022-07-22 | [facility] | 63 | ml/min | (missing) | | ESTIMATION | 09:44 | [facility] | | | | | | | [facility] | | | | + + + +--------+ + + | GFR | 2022-07-22 | [facility] | 63 | ml/min | (missing) | | ESTIMATION | 09:44 | [facility] | | | | | | | Nava GIBSONCMigue | | | | + + + +--------+ + + + + | IRON AND TOTAL IRON BINDING | + + + + + + +---------+ + | IRON | 2022-07-22 | [facility] | 53.66 | ug/dL | (missing) | | | 09:44 | [facility] | | | | | | | [facility] | | | | + + + + +---------+ + | TIBC | 2022-07-22 | [facility] | 288 | ug/dL | (missing) | | | 09:44 | [facility] | | | | | | | [facility] | | | | + + + + +---------+ + | % | 2022-07-22 | [facility] | 18.6 | % | (missing) | | SATURATION | 09:44 | [facility] | | | | | | | [facility] | | | | + + + + +---------+ + | TRANSFERRIN | 2022-07-22 | [facility] | 205.60 | mg/dL | (missing) | | | 09:44 | [facility] | | | | | | | [facility] | | | | + + + + +---------+ + + + | MAGNESIUM | + + + + + +-------+---------+ + | MAGNESIUM | 2022-07-22 | [facility] | 1.8 | mg/dL | (missing) | | | 09:44 | [facility] | | | | | | | [facility] | | | | + + + +-------+---------+ + + + | HEMOGLOBIN A1C PANEL | + + + + + +-------+---------+ + | EST AVG | 2021-04-14 | [facility] | 123 | mg/dL | (missing) | | GLUCOSE | 07:05 | [facility] | | | | | | | [facility] | | | | + + + +-------+---------+ + | HEMOGLOBIN | 2021-04-14 | [facility] | 5.9 | % | (missing) | | A1C | 07:05 | [facility] | | | | | | | [facility] | | | | + + + +-------+---------+ + + + | HEMOGLOBIN A1C PANEL | + + + + + +-------+---------+ + | EST AVG | 2021-12-05 | [facility] | 108 | mg/dL | (missing) | | GLUCOSE | 11:20 | [facility] | | | | | | | [facility] | | | | + + + +-------+---------+ + | HEMOGLOBIN | 2021-12-05 | [facility] | 5.4 | % | (missing) | | A1C | 11:20 | [facility] | | | | | | | [facility] | | | | + + + +-------+---------+ + + + | HEMOGLOBIN A1C PANEL | + + + + + +-------+---------+ + | EST AVG | 2022-03-06 | [facility] | 105 | mg/dL | (missing) | | GLUCOSE | 11:00 | [facility] | | | | | | | [facility] | | | | + + + +-------+---------+ + | HEMOGLOBIN | 2022-03-06 | [facility] | 5.3 | % | (missing) | | A1C | 11:00 | [facility] | | | | | | | [facility] | | | | + + + +-------+---------+ + + + | HEMOGLOBIN A1C PANEL | + + + + + +-------+---------+ + | EST AVG | 2022-07-22 | [facility] | 88 | mg/dL | (missing) | | GLUCOSE | 09:44 | [facility] | | | | | | | [facility] | | | | + + + +-------+---------+ + | HEMOGLOBIN | 2022-07-22 | [facility] | 4.7 | % | (missing) | | A1C | 09:44 | [facility] | | | | | | | [facility] | | | | + + + +-------+---------+ + + + | HEMOGLOBIN A1C PANEL | + + + + + +-------+---------+ + | EST AVG | 2022-10-14 | [facility] | 120 | mg/dL | (missing) | | GLUCOSE | 09:02 | [facility] | | | | | | | [facility] | | | | + + + +-------+---------+ + | HEMOGLOBIN | 2022-10-14 | [facility] | 5.8 | % | (missing) | | A1C | 09:02 | [facility] | | | | | | | [facility] | | | | + + + +-------+---------+ + +-------+ | CBC | +-------+ + + + +--------+--------+ + | HEMOGLOBIN | 2021-04-14 | [facility] | 14.7 | g/dl | (missing) | | | 07:05 | [facility] | | | | | | | [facility] | | | | + + + +--------+--------+ + | RDW | 2021-04-14 | [facility] | 14.5 | % | (missing) | | | 07:05 | [facility] | | | | | | | [facility] | | | | + + + +--------+--------+ + | HEMATOCRIT | 2021-04-14 | [facility] | 44.5 | % | (missing) | | | 07:05 | [facility] | | | | | | | [facility] | | | | + + + +--------+--------+ + | MONOCYTES | 2021-04-14 | [facility] | 12.7 | % | (missing) | | | 07:05 | [facility] | | | | | | | [facility] | | | | + + + +--------+--------+ + | WBC | 2021-04-14 | [facility] | 4.9 | K/ul | (missing) | | | 07:05 | [facility] | | | | + + + +--------+--------+ + | BASOPHILS | 2021-04-14 | [facility] | 0.5 | % | (missing) | | | 07:05 | [facility] | | | | | | | [facility] | | | | + + + +--------+--------+ + | EOSINOPHILS | 2021-04-14 | [facility] | 4.1 | % | (missing) | | | 07:05 | [facility] | | | | [facility] | [facility] | | | | + + + +--------+--------+ + | LYMPHOCYTES | 2021-04-14 | [facility] | 14.8 | % | (missing) | | | 07:05 | [facility] | | | | | | | [facility] | | | | + + + +--------+--------+ + | NEUTROPHILS | 2021-04-14 | [facility] | 67.9 | % | (missing) | | | 07:05 | [facility] | | | | | | | [facility] | | | | + + + +--------+--------+ + | PLATELET | 2021-04-14 | [facility] | 153 | K/ul | (missing) | | COUNT | 07:05 | [facility] | | | | | | | [facility] | | | | + + + +--------+--------+ + | MCH | 2021-04-14 | [facility] | 29 | pg | (missing) | | | 07:05 | [facility] | | | | | | | [facility] | | | | + + + +--------+--------+ + | MCHC | 2021-04-14 | [facility] | 33 | g/dL | (missing) | | | 07:05 | [facility] | | | | | | | [facility] | | | | + + + +--------+--------+ + | MCV | 2021-04-14 | [facility] | 88.5 | fl | (missing) | | | 07:05 | [facility] | | | | | | | [facility] | | | | + + + +--------+--------+ + | RBC | 2021-04-14 | [facility] | 5.03 | M/ul | (missing) | | | 07:05 | [facility] | | | | | | | [facility] | | | | + + + +--------+--------+ + +-------+ | CBC | +-------+ + + + +--------+--------+ + | HEMOGLOBIN | 2022-03-06 | [facility] | 14.0 | g/dl | (missing) | | | 11:00 | [facility] | | | | | | [facility] | | | | + + + +--------+--------+ + | RDW | 2022-03-06 | [facility] | 14.2 | % | (missing) | | | 11:00 | [facility] | | | | | | | [facility] | | | | + + + +--------+--------+ + | HEMATOCRIT | 2022-03-06 | [facility] | 41.7 | % | (missing) | | | 11:00 | [facility] | | | | [facility] | [facility] | | | | + + + +--------+--------+ + | MONOCYTES | 2022-03-06 | [facility] | 7.3 | % | (missing) | | | 11:00 | [facility] | | | | | | | [facility] | | | | + + + +--------+--------+ + | WBC | 2022-03-06 | [facility] | 5.7 | K/ul | (missing) | | | 11:00 | [facility] | | | | | | | [facility] | | | | + + + +--------+--------+ + | BASOPHILS | 2022-03-06 | [facility] | 0.7 | % | (missing) | | | 11:00 | [facility] | | | | | | | [facility] | | | | + + + +--------+--------+ + | EOSINOPHILS | 2022-03-06 | [facility] | 3.1 | % | (missing) | | | 11:00 | [facility] | | | | | | | [facility] | | | | + + + +--------+--------+ + | LYMPHOCYTES | 2022-03-06 | [facility] | 12.4 | % | (missing) | | | 11:00 | [facility] | | | | | | | [facility] | | | | + + + +--------+--------+ + | NEUTROPHILS | 2022-03-06 | [facility] | 76.5 | % | (missing) | | | 11:00 | [facility] | | | | | | | [facility] | | | | + + + +--------+--------+ + | PLATELET | 2022-03-06 | [facility] | 166 | K/ul | (missing) | | COUNT | 11:00 | [facility] | | | | | | | [facility] | | | | + + + +--------+--------+ + | MCH | 2022-03-06 | [facility] | 30 | pg | (missing) | | | 11:00 | [facility] | | | | | | | [facility] | | | | + + + +--------+--------+ + | MCHC | 2022-03-06 | [facility] | 34 | g/dL | (missing) | | | 11:00 | [facility] | | | | | | | [facility] | | | | + + + +--------+--------+ + | MCV | 2022-03-06 | [facility] | 88.9 | fl | (missing) | | | 11:00 | [facility] | | | | | | | [facility] | | | | + + + +--------+--------+ + | RBC | 2022-03-06 | [facility] | 4.69 | M/ul | (missing) | | | 11:00 | [facility] | | | | | | | [facility] | | | | + + + +--------+--------+ + +-------+ | CBC | +-------+ + + + +--------+--------+ + | HEMOGLOBIN | 2022-07-22 | [facility] | 10.8 | g/dl | (missing) | | | 09:44 | [facility] | | | | | [facility] | | | | + + + +--------+--------+ + | RDW | 2022-07-22 | [facility] | 19.5 | % | (missing) | | | 09:44 | [facility] | | | | | | | [facility] | | | | + + + +--------+--------+ + | HEMATOCRIT | 2022-07-22 | [facility] | 34.5 | % | (missing) | | | 09:44 | [facility] | | | | | | | [facility] | | | | + + + +--------+--------+ + | MONOCYTES | 2022-07-22 | [facility] | 5.4 | % | (missing) | | | 09:44 | [facility] | | | | | | | [facility] | | | | + + + +--------+--------+ + | WBC | 2022-07-22 | [facility] | 6.1 | K/ul | (missing) | | | 09:44 | [facility] | | | | | | | [facility] | | | | + + + +--------+--------+ + | BASOPHILS | 2022-07-22 | [facility] | 0.5 | % | (missing) | | | 09:44 | [facility] | | | | | | | [facility] | | | | + + + +--------+--------+ + | EOSINOPHILS | 2022-07-22 | [facility] | 4.1 | % | (missing) | | | 09:44 | [facility] | | | | | | | [facility] | | | | + + + +--------+--------+ + | LYMPHOCYTES | 2022-07-22 | [facility] | 9.9 | % | (missing) | | | 09:44 | [facility] | | | | | | | [facility] | | | | + + + +--------+--------+ + | NEUTROPHILS | 2022-07-22 | [facility] | 80.1 | % | (missing) | | | 09:44 | [facility] | | | | | | | [facility] | | | | + + + +--------+--------+ + | PLATELET | 2022-07-22 | [facility] | 246 | K/ul | (missing) | | COUNT | 09:44 | [facility] | | | | | | | [facility] | | | | + + + +--------+--------+ + | MCH | 2022-07-22 | [facility] | 27 | pg | (missing) | | | 09:44 | [facility] | | | | | | | [facility] | | | | + + + +--------+--------+ + | MCHC | 2022-07-22 | [facility] | 31 | g/dL | (missing) | | | 09:44 | [facility] | | | | | | | [facility] | | | | + + + +--------+--------+ + | MCV | 2022-07-22 | [facility] | 84.8 | fl | (missing) | | | 09:44 | [facility] | | | | | | | [facility] | | | | + + + +--------+--------+ + | RBC | 2022-07-22 | [facility] | 4.07 | M/ul | (missing) | | | 09:44 | [facility] | | | | | | | [facility] | | | | + + + +--------+--------+ + +-------+ | CBC | +-------+ + + + +--------+--------+ + | HEMOGLOBIN | 2022-10-14 | [facility] | 11.8 | g/dl | (missing) | | | 09:02 | [facility] | | | | | | [facility] | | | | + + + +--------+--------+ + | RDW | 2022-10-14 | [facility] | 20.6 | % | (missing) | | | 09:02 | [facility] | | | | | | | [facility] | | | | + + + +--------+--------+ + | HEMATOCRIT | 2022-10-14 | [facility] | 36.1 | % | (missing) | | | 09:02 | [facility] | | | | | | | [facility] | | | | + + + +--------+--------+ + | MONOCYTES | 2022-10-14 | [facility] | 7.5 | % | (missing) | | | 09:02 | [facility] | | | | | | | [facility] | | | | + + + +--------+--------+ + | WBC | 2022-10-14 | [facility] | 5.5 | K/ul | (missing) | | | 09:02 | [facility] | | | | [facility] | | | | + + + +--------+--------+ + | BASOPHILS | 2022-10-14 | [facility] | 0.6 | % | (missing) | | | 09:02 | [facility] | [facility] | | | | + + + +--------+--------+ + | EOSINOPHILS | 2022-10-14 | [facility] | 2.0 | % | (missing) | | | 09:02 | [facility] | | | | | | | [facility] | | | | + + + +--------+--------+ + | LYMPHOCYTES | 2022-10-14 | [facility] | 8.5 | % | (missing) | | | 09:02 | [facility] | | | | | | | [facility] | | | | + + + +--------+--------+ + | NEUTROPHILS | 2022-10-14 | [facility] | 81.6 | % | (missing) | | | 09:02 | [facility] | | | | | | | [facility] | | | | + + + +--------+--------+ + | PLATELET | 2022-10-14 | [facility] | 230 | K/ul | (missing) | | COUNT | 09:02 | [facility] | | | | | | | [facility] | | | | + + + +--------+--------+ + | MCH | 2022-10-14 | [facility] | 29 | pg | (missing) | | | 09:02 | [facility] | | | | | | | [facility] | | | | + + + +--------+--------+ + | MCHC | 2022-10-14 | [facility] | 33 | g/dL | (missing) | | | 09:02 | [facility] | | | | | | | [facility] | | | | + + + +--------+--------+ + | MCV | 2022-10-14 | [facility] | 90.3 | fl | (missing) | | | 09:02 | [facility] | | | | | | | [facility] | | | | + + + +--------+--------+ + | RBC | 2022-10-14 | [facility] | 4.02 | M/ul | (missing) | | | 09:02 | [facility] | | | | | | | [facility] | | | | + + + +--------+--------+ + + + | Aerobic bacterial culture | + + + + + +------+ + + | Whole blood | 2022-05-19 | [facility] | 91 | (missing) | (missing) | | glucose | 07:32 | [facility] | | | | | measurement | | [facility] | | | | | using | | | | | | | handheld | | | | | | | analyzer | | | | | | | (mass/volume | | | | | | | ) | | | | | | + + + +------+ + + + + | Gram stain microscopy | + + + + + + + + + | Respiratory | 2022-05-19 | [facility] | NEGATIVE | (missing) | (missing) | | specimen | 08:38 | [facility] | | | | | 2019 novel | | Hospital | | | | | coronavirus | | | | | | | RNA | | | | | | | detection | | | | | | + + + + + + + | Whole blood | 2022-08-14 | [facility] | 124 | (missing) | (missing) | | glucose | 11:24 | [facility] | | | | | measurement | | Hospital | | | | | using | | | | | | | handheld | | | | | | | analyzer | | | | | | | (mass/volume | | | | | | | ) | | | | | | + + + + + + + Social History + + + + | date | description | facility | + + + + | 2014-06-04 00:00 | Ex-smoker (finding) | [facility] | | | | | + + + + | 2022-05-19 00:00 | Unknown if ever smoked | [facility] | + + + + | 2022-05-29 00:00 | Unknown if ever smoked | [facility] | + + + + | 2022-06-05 00:00 | Unknown if ever smoked | [facility] | + + + + | 2022-06-11 00:00 | Unknown if ever smoked | [facility] | + + + + | 2022-07-15 00:00 | Unknown if ever smoked | [facility] | + + + + | 2022-07-15 00:00 | Unknown if ever smoked | [facility] | + + + + | 2022-08-14 00:00 | Unknown if ever smoked | [facility] | + + + + Vital Signs + + + + + | date | measurement | value | units | + + + + + | 2021-04-11 00:00 | BP_diastolic | 66 | mmHg | + + + + + | 2021-04-11 00:00 | BP_systolic | 114 | mmHg | + + + + + | 2021-04-11 00:00 | heart_rate | 1|1| | completed | + + + + + | 2021-04-11 00:00 | heart_rate | 80 | /min | + + + + + | 2021-04-11 00:00 | o2_saturation | 98 | % | + + + + + | 2021-04-11 00:00 | respiration_rate | 16 | /min | + + + + + | 2021-04-11 00:00 | temperature_metric | 36.5 | C | | | | | | + + + + + | 2021-04-11 00:00 | | 97.7 | F | | | temperature_standar | | | | | d | | | + + + + + | 2021-04-11 00:00 | weight_metric | 99.34 | kg | + + + + + | 2021-04-11 00:00 | weight_standard | 219 | lb | + + + + + | 2021-09-08 00:00 | BP_diastolic | 68 | mmHg | + + + + + | 2021-09-08 00:00 | BP_systolic | 118 | mmHg | + + + + + | 2021-09-08 00:00 | heart_rate | 86 | /min | + + + + + | 2021-09-08 00:00 | o2_saturation | 98 | % | + + + + + | 2021-09-08 00:00 | temperature_metric | 36.11 | C | | | | | | + + + + + | 2021-09-08 00:00 | | 97 | F | | | temperature_standar | | | | | d | | | + + + + + | 2021-09-08 00:00 | weight_metric | 98.16 | kg | + + + + + | 2021-09-08 00:00 | weight_standard | 216.4 | lb | + + + + + | 2021-12-08 00:00 | BP_diastolic | 64 | mmHg | + + + + + | 2021-12-08 00:00 | BP_systolic | 114 | mmHg | + + + + + | 2021-12-08 00:00 | heart_rate | 71 | /min | + + + + + | 2021-12-08 00:00 | o2_saturation | 99 | % | + + + + + | 2021-12-08 00:00 | temperature_metric | 36 | C | | | | | | + + + + + | 2021-12-08 00:00 | | 96.8 | F | | | temperature_standar | | | | | d | | | + + + + + | 2021-12-08 00:00 | weight_metric | 93.08 | kg | + + + + + | 2021-12-08 00:00 | weight_standard | 205.2 | lb | + + + + + | 2022-03-13 00:00 | BP_diastolic | 82 | mmHg | + + + + + | 2022-03-13 00:00 | BP_systolic | 128 | mmHg | + + + + + | 2022-03-13 00:00 | heart_rate | 1|1| | completed | + + + + + | 2022-03-13 00:00 | heart_rate | 82 | /min | + + + + + | 2022-03-13 00:00 | temperature_metric | 36.44 | C | | | | | | + + + + + | 2022-03-13 00:00 | | 97.6 | F | | | temperature_standar | | | | | d | | | + + + + + | 2022-03-13 00:00 | weight_metric | 84.82 | kg | + + + + + | 2022-03-13 00:00 | weight_standard | 187 | lb | + + + + + | 2022-04-14 00:00 | BMI | 32.3 | kg/m2 | + + + + + | 2022-04-14 00:00 | height_metric | 172.72 | cm | + + + + + | 2022-04-14 00:00 | height_standard | 68 | in | + + + + + | 2022-04-14 00:00 | weight_metric | 96.3 | kg | + + + + + | 2022-04-14 00:00 | weight_standard | 212.31 | lb | + + + + + | 2022-04-17 00:00 | BP_diastolic | 65 | mmHg | + + + + + | 2022-04-17 00:00 | BP_systolic | 115 | mmHg | + + + + + | 2022-04-17 00:00 | heart_rate | 1|1| | completed | + + + + + | 2022-04-17 00:00 | o2_saturation | 98 | % | + + + + + | 2022-04-17 00:00 | temperature_metric | 37.11 | C | | | | | | + + + + + | 2022-04-17 00:00 | | 98.8 | F | | | temperature_standar | | | | | d | | | + + + + + | 2022-05-06 00:00 | BP_diastolic | 67 | mmHg | + + + + + | 2022-05-06 00:00 | BP_systolic | 92 | mmHg | + + + + + | 2022-05-06 00:00 | heart_rate | 92 | /min | + + + + + | 2022-05-06 00:00 | o2_saturation | 100 | % | + + + + + | 2022-05-06 00:00 | respiration_rate | 17 | /min | + + + + + | 2022-05-06 00:00 | temperature_metric | 36.5 | C | | | | | | + + + + + | 2022-05-06 00:00 | | 97.7 | F | | | temperature_standar | | | | | d | | | + + + + + | 2022-05-11 00:00 | BMI | 24.4 | kg/m2 | + + + + + | 2022-05-11 00:00 | height_metric | 172.72 | cm | + + + + + | 2022-05-11 00:00 | height_standard | 68 | in | + + + + + | 2022-05-11 00:00 | weight_metric | 72.9 | kg | + + + + + | 2022-05-11 00:00 | weight_standard | 160.72 | lb | + + + + + | 2022-05-19 00:00 | BP_diastolic | 68 | mmHg | + + + + + | 2022-05-19 00:00 | BP_systolic | 97 | mmHg | + + + + + | 2022-05-19 00:00 | heart_rate | 89 | /min | + + + + + | 2022-05-19 00:00 | o2_saturation | 100 | % | + + + + + | 2022-05-19 00:00 | respiration_rate | 18 | /min | + + + + + | 2022-05-19 00:00 | temperature_metric | 36.39 | C | | | | | | + + + + + | 2022-05-19 00:00 | | 97.5 | F | | | temperature_standar | | | | | d | | | + + + + + | 2022-05-28 00:00 | BMI | 23.7 | kg/m2 | + + + + + | 2022-05-28 00:00 | height_metric | 172.72 | cm | + + + + + | 2022-05-28 00:00 | height_standard | 68 | in | + + + + + | 2022-05-28 00:00 | weight_metric | 70.76 | kg | + + + + + | 2022-05-28 00:00 | weight_standard | 156 | lb | + + + + + | 2022-05-29 00:00 | BP_diastolic | 74 | mmHg | + + + + + | 2022-05-29 00:00 | BP_systolic | 98 | mmHg | + + + + + | 2022-05-29 00:00 | heart_rate | 92 | /min | + + + + + | 2022-05-29 00:00 | o2_saturation | 100 | % | + + + + + | 2022-05-29 00:00 | respiration_rate | 16 | /min | + + + + + | 2022-05-29 00:00 | temperature_metric | 36.61 | C | | | | | | + + + + + | 2022-05-29 00:00 | | 97.9 | F | | | temperature_standar | | | | | d | | | + + + + + | 2022-06-05 00:00 | BMI | 23.7 | kg/m2 | + + + + + | 2022-06-05 00:00 | BP_diastolic | 88 | mmHg | + + + + + | 2022-06-05 00:00 | BP_diastolic | 95 | mmHg | + + + + + | 2022-06-05 00:00 | BP_systolic | 119 | mmHg | + + + + + | 2022-06-05 00:00 | BP_systolic | 122 | mmHg | + + + + + | 2022-06-05 00:00 | heart_rate | 113 | /min | + + + + + | 2022-06-05 00:00 | heart_rate | 97 | /min | + + + + + | 2022-06-05 00:00 | height_metric | 172.72 | cm | + + + + + | 2022-06-05 00:00 | height_standard | 68 | in | + + + + + | 2022-06-05 00:00 | o2_saturation | 100 | % | + + + + + | 2022-06-05 00:00 | respiration_rate | 18 | /min | + + + + + | 2022-06-05 00:00 | temperature_metric | 36.83 | C | | | | | | + + + + + | 2022-06-05 00:00 | | 98.3 | F | | | temperature_standar | | | | | d | | | + + + + + | 2022-06-05 00:00 | weight_metric | 70.76 | kg | + + + + + | 2022-06-05 00:00 | weight_standard | 156 | lb | + + + + + | 2022-06-08 00:00 | BMI | 23.9 | kg/m2 | + + + + + | 2022-06-08 00:00 | height_metric | 172.72 | cm | + + + + + | 2022-06-08 00:00 | height_standard | 68 | in | + + + + + | 2022-06-08 00:00 | weight_metric | 71.3 | kg | + + + + + | 2022-06-08 00:00 | weight_standard | 157.19 | lb | + + + + + | 2022-06-11 00:00 | BP_diastolic | 86 | mmHg | + + + + + | 2022-06-11 00:00 | BP_systolic | 95 | mmHg | + + + + + | 2022-06-11 00:00 | heart_rate | 108 | /min | + + + + + | 2022-06-11 00:00 | o2_saturation | 100 | % | + + + + + | 2022-06-11 00:00 | respiration_rate | 16 | /min | + + + + + | 2022-06-11 00:00 | temperature_metric | 36.94 | C | | | | | | + + + + + | 2022-06-11 00:00 | | 98.5 | F | | | temperature_standar | | | | | d | | | + + + + + | 2022-07-02 00:00 | BMI | 23.2 | kg/m2 | + + + + + | 2022-07-02 00:00 | BP_diastolic | 62 | mmHg | + + + + + | 2022-07-02 00:00 | BP_systolic | 118 | mmHg | + + + + + | 2022-07-02 00:00 | BSA | 1.86 | m2 | + + + + + | 2022-07-02 00:00 | BSA | 1.9 | m2 | + + + + + | 2022-07-02 00:00 | heart_rate | 1|1| | completed | + + + + + | 2022-07-02 00:00 | heart_rate | 90 | /min | + + + + + | 2022-07-02 00:00 | height_metric | 175.26 | cm | + + + + + | 2022-07-02 00:00 | height_standard | 69 | in | + + + + + | 2022-07-02 00:00 | o2_saturation | 96 | % | + + + + + | 2022-07-02 00:00 | temperature_metric | 36.28 | C | | | | | | + + + + + | 2022-07-02 00:00 | | 97.3 | F | | | temperature_standar | | | | | d | | | + + + + + | 2022-07-02 00:00 | weight_metric | 71.12 | kg | + + + + + | 2022-07-02 00:00 | weight_standard | 156.8 | lb | + + + + + | 2022-07-10 00:00 | BMI | 23.2 | kg/m2 | + + + + + | 2022-07-10 00:00 | height_metric | 172.72 | cm | + + + + + | 2022-07-10 00:00 | height_standard | 68 | in | + + + + + | 2022-07-10 00:00 | weight_metric | 69.3 | kg | + + + + + | 2022-07-10 00:00 | weight_standard | 152.78 | lb | + + + + + | 2022-07-15 00:00 | BP_diastolic | 75 | mmHg | + + + + + | 2022-07-15 00:00 | BP_systolic | 114 | mmHg | + + + + + | 2022-07-15 00:00 | heart_rate | 80 | /min | + + + + + | 2022-07-15 00:00 | o2_saturation | 100 | % | + + + + + | 2022-07-15 00:00 | respiration_rate | 17 | /min | + + + + + | 2022-07-15 00:00 | temperature_metric | 36.67 | C | | | | | | + + + + + | 2022-07-15 00:00 | | 98 | F | | | temperature_standar | | | | | d | | | + + + + + | 2022-08-19 00:00 | BMI | 21.7 | 1 | + + + + + | 2022-08-19 00:00 | BSA | 1.8 | 1 | + + + + + | 2022-08-19 00:00 | heart_rate | 80 | /min | + + + + + | 2022-08-19 00:00 | height_metric | 175.26 | cm | + + + + + | 2022-08-19 00:00 | height_standard | 69 | in | + + + + + | 2022-08-19 00:00 | temperature_metric | 36.56 | C | | | | | | + + + + + | 2022-08-19 00:00 | | 97.8 | F | | | temperature_standar | | | | | d | | | + + + + + | 2022-08-19 00:00 | weight_metric | 66.68 | kg | + + + + + | 2022-08-19 00:00 | weight_standard | 147 | lb | + + + + + | 2022-09-23 00:00 | BMI | 19.6 | 1 | + + + + + | 2022-09-23 00:00 | BP_diastolic | 90 | mmHg | + + + + + | 2022-09-23 00:00 | BP_systolic | 125 | mmHg | + + + + + | 2022-09-23 00:00 | BSA | 1.7 | 1 | + + + + + | 2022-09-23 00:00 | heart_rate | 84 | /min | + + + + + | 2022-09-23 00:00 | height_metric | 175.26 | cm | + + + + + | 2022-09-23 00:00 | height_standard | 69 | in | + + + + + | 2022-09-23 00:00 | o2_saturation | 98 | % | + + + + + | 2022-09-23 00:00 | weight_metric | 60.33 | kg | + + + + + | 2022-09-23 00:00 | weight_standard | 133 | lb | + + + + + | 2022-10-27 00:00 | BMI | 23.8 | 1 | + + + + + | 2022-10-27 00:00 | BP_diastolic | 70 | mmHg | + + + + + | 2022-10-27 00:00 | BP_systolic | 116 | mmHg | + + + + + | 2022-10-27 00:00 | BSA | 1.9 | m2 | + + + + + | 2022-10-27 00:00 | heart_rate | 90 | /min | + + + + + | 2022-10-27 00:00 | height_metric | 173.35 | cm | + + + + + | 2022-10-27 00:00 | height_standard | 68.25 | in | + + + + + | 2022-10-27 00:00 | o2_saturation | 99 | % | + + + + + | 2022-10-27 00:00 | temperature_metric | 36.39 | C | | | | | | + + + + + | 2022-10-27 00:00 | | 97.5 | F | | | temperature_standar | | | | | d | | | + + + + + | 2022-10-27 00:00 | weight_metric | 71.67 | kg | + + + + + | 2022-10-27 00:00 | weight_standard | 158 | lb | + + + + +"
[~2023-03-26 15:15] MED LIST changes: +FLOMAX0.4 MG PO; +FUROSEMIDE20 MG PO; +LIDOCAINE PAIN1 EACH TD; +MAGNESIUM400 M1 PO; +METRONIDAZOLE250 MG PO; +ONDANSETRON ODT8 MG PO; +POTASSIUM CHLO20 ME1 PO; +TAMSULOSIN HCL0.4 MG PO
[2023-03-29] MEDS ORDERED: COZAAR100 MG PO (13:15)
[2023-03-29] MEDS ORDERED: ISOSORBIDE MONO30 MG PO (13:16)
[2023-03-29] MEDS ORDERED: FINACEA50 GM (13:18)
[2023-03-29] MEDS ORDERED: LOPROX90 GM (13:19)
[2023-03-31 06:27] VITALS: BP 114/78
--- NOTE | 2023-03-31 13:20 | NUR ---
PT IN BED. GREETED ME CHEERFULLY. DENIED NEEDS. CONSENTED TO PRAYER. PRAYED FOR SUCCESSFUL PROCEDURE AND ONGOING HEALING.
--- NOTE | 2023-03-31 15:16 | NUR ---
03/31/23 Shyam6 Rosey Castro 1305 PT TO PACU SLEEPING ORAL AIRWAY IN PLACE O2 ON 10L VIA MASK FOGGING NOTED IN MASK. ONEIL CATH IN PLACE, PATENT AND DRAINING WELL. MIGUELITO DRAIN PATENT. SMALL AMOUNT OF SHADOWING ON SMALL HORIZONTAL DRESSING. RESPIRATIONS REGULAR AND UNLABORED.
--- NOTE | 2023-03-31 17:00 | NUR ---
PT ARRIVES TO ROOM IN HOSPITAL BED. BEDSIDE REPORT RECEIVED. PT A&O TO ALL. VITALS COMPLETE. WILL RETURN WITH ORDERED MEDICAITONS. PT DENIES ANY NEEDS AT THIS TIME. CALL LIGHT IN REACH.
--- NOTE | 2023-03-31 17:03 | EKG ---
[facility] [address] [place], [place] [address] Signed Normal sinus rhythm Normal ECG When compared with ECG of 12-MAY-2022 09:35, No significant change was found Confirmed by TOD ANGEL MD ([id number]) on 03/31/2023 5:03:14 PM Electronically Signed By: TOD ANGEL 03/31/23 1703 PATIENT NAME: DAVID POTTS Electrocardiogram DATE OF : 57 PHYSICIAN: TOD ANGEL REPORT #: [id number] REPORT IS CONFIDENTIAL AND NOT TO BE RELEASED WITHOUT AUTHORIZATION
[2023-03-31 17:05] VITALS: BP 106/65
--- NOTE | 2023-03-31 17:25 | NUR ---
IV FLUIDS STARTED, SEE MAR. MEDICATION ADMINISTERED, SEE MAR. PT TAKES SIP OF WATER AND PO MEDICAITON WITH NO ISSUES. PT REPORTING NAUSEA. WILL RETURN WITH PRN NAUSEA MEDICAITON. ASSESSMENT COMPLETE. LUNG SOUNDS CLEAR. BOWEL TONES HYPOACTIVE. ABD TENDER WITH PALPATION. MIDLINE DRESSING D/I WITH SCANT AMOUNT OF SHADOWING NOTED. RLQ DRESSING D/I WITH SCANT AMOUNT OF DRAINAGE NOTED. RLQ MIGUELITO DRAIN DRESSING C/D/I. PT REPORTING PAIN 8/10. PT REPOSITIONED. PEDAL PULSES PALPABLE AND EQUAL BILATERALLY. SCAR NOTED TO BILATERAL SHOULDERS AND LEFT KNEE. PT A&O TO ALL. CPOX IN PLACE. SCDs IN PLACE. PT DENIES ANY OTHER NEEDS AT THIS TIME. CALL LIGHT IN REACH.
[2023-03-31 17:55] VITALS: BP 105/70
--- NOTE | 2023-03-31 18:14 | NUR ---
THIS RN CALLED DR. PRO REGARDING PTs NAUSEA. NEW ORDERS RECEIVED "ZOFRAN 4MG IV Q6 PRN NAUSEA." ALSO TALKED TO MD REGARDING PREVIOUS ORDERS FOR SPIRONOLACTONE AND ENOXAPARIN SODIUM. PER MD "PT HAD LOVENOX IN OR, PT DOES NOT NEED THAT DOES TONIGHT. PT DOES NEED SPIRONOLACTONE TONIGHT AND IN EVERY DAY WHILE IN THE HOSPITAL." VERIFIED WITH READBACK. PHARMACY CALLED.
--- NOTE | 2023-03-31 18:55 | NUR ---
IN TO ADMINISTER MEDICATION, SEE MAR. PT TAKES SIP OF WATER AND THEN TAKES PO MEDICAITON WITH NO ISSUES. IV FLUSHES WNL. IV FLUIDS STARTED, SEE MAR. ASSESSMENT COMPLETE. LUNG SOUNDS CLEAR. BOWEL TONES HYPOACTIVE. PT REPORTS ABD TENDERNESS WITH PALPATION. PEDAL PULSES PALPABLE AND EQUAL BILATERALLY. PT REPORTING PAIN 8/10. PT REPOSITIONED. ICE PACK PROVIDED FOR ABD. SCAR NOTED TO BILATERAL SHOULDERS AND LEFT KNEE. PT REPORTING NAUSEA. WILL CALL MD TO ASK FOR SOMETHING FOR NAUSEA.
[2023-03-31 19:04] VITALS: BP 111/78
--- NOTE | 2023-03-31 19:30 | NUR ---
Patient resting in bed, no distress, denies pain, still nauseated. Bedside report given by Diann.
[2023-03-31 20:09] VITALS: BP 109/67
--- NOTE | 2023-03-31 21:00 | NUR ---
Patient does not feel the Zofran is working well on his nausea. Requesting I speak with MD about getting compazine. Called MD - see orders.
--- NOTE | 2023-03-31 21:48 | NUR ---
PATIENT REPORTS NAUSEA. PATIENT GIVEN PRN NAUSEA MEDICATION PER ORDER. PATIENT DENIES ANY PAIN. PATIENT IS RESTING IN BED. IV INFUSING PER ORDER. PATIENT DENIES ANY FURTHER NEEDS. CALL LIGHT IN REACH.
--- NOTE | 2023-03-31 23:30 | NUR ---
Patient resting with eyes closed, CPAP in use, Maintianing urine output, latest measurment 150ml in 4h. Nausea improved with compazine.
[2023-04-01] VITALS (7 sets, daily range): BP systolic 94–107; BP diastolic 61–70
--- NOTE | 2023-04-01 01:50 | NUR ---
Wilfrid has been sleeping comfortable, Nausea resolved with compazine, VSS, MIGUELITO with 70 ml output, drain intact and bulb compressed. Abdominal dressing remains intact, dunn intact with 125ml output in last 3hours with shift accumulative = 275ml thus far.
--- NOTE | 2023-04-01 04:29 | NUR ---
Wilfrid continues to rest comfortable with eyes closed. Urine output remains adequate. IV of LR@85/h infusing.
[2023-04-01 05:27] LABS: HEMOGLOBIN 10.1 g/dL (12.0-18.0); MCH 29.1 (27-36); MCHC 31.8 g/dl (30-36)
[2023-04-01 05:29] LABS: BASOPHILS 0.2 % (0-2); HEMATOCRIT 31.8 % (35.0-50.0); LYMPHOCYTES 1.8 % (24-44); MCV 91.6 fl (81-99); MONOCYTES 4.9 % (0-12); NEUTROPHILS 93.1 % (39-80); PLATELET COUNT 149 K/uL (140-440); RBC 3.47 M/ul (4.3-5.7); RDW 15.2 (10.5-15.0)
[2023-04-01 05:39] LABS: ANION GAP 13.3 (7-21); BUN/CREATININE RATIO 21.64 (6.0-28.6); CALCIUM 8.8 mg/dL (8.5-10.1); CREATININE, SERUM 2.31 mg/dL (0.70-1.30); POTASSIUM 5.3 mmol/L (3.5-5.1)
--- NOTE | 2023-04-01 05:40 | NUR ---
Wilfrid woke for morning care, VSS, MIGUELITO intact with total output for shift 100ml sanginous fluid, Sellers intact with total output for the shift 525ml. BT's hypoactive. abdomin tender, midline drsg intact, Patient assisted up to stand at bedside and walk in place, tolerated well with no complaints. Feeling mild discomfort but not requiring pain medicaiton. No further nausea since medicated last evening with compazine.
--- NOTE | 2023-04-01 07:05 | NUR ---
REPORT RECEIVED FROM SHAR ROMERO. PT RESTING IN BED WITH EYES CLOSED CPAP IN PLACE. RR EVEN AND UNLABORED. CPOX IN PLACE WITH O2 SATS AT 98%. NO NEEDS IDENTIFIED AT THIS TIME. CALL LIGHT IN REACH.
--- NOTE | 2023-04-01 07:25 | NUR ---
THIS ACCESS CONTROL OFFICER HAS TAKEN OVER CARES FOR THIS PT FROM [employer] ACCESS CONTROL OFFICER. BLOOD SUGAR OBTAINED. PT DENIES ANY OTHER NEEDS AT THIS TIME. CALL LIGHT WITHIN REACH.
--- NOTE | 2023-04-01 08:06 | NUR ---
IN TO ADMINISTER MEDICATIONS, SEE MAR. PT TAKES PO MEDICAITONS WITH NO ISSUES. PT REPORTING PAIN 7/10 IN ABD. PRN PAIN MEDICATION ADMINISTERED, SEE MAR. ASSESSMENT COMPLETE. LUNG SOUNDS CLEAR. BOWEL TONES HYPOACTIVE. ABD TENDER WITH PALPATION. MIDLINE DRESSING D/I WITH SCANT AMOUNT OF SHADOWING NOTED. RIGHT UPPER QUADRANT DRESSING D/I WITH SCANT AMOUNT OF SHADOWING NOTED. RLQ MIGUELITO DRAIN DRESSING C/D/I. MIGUELITO DRAINAGE SANGUENOUS. PT DENIES ANY OTHER NEEDS AT THIS TIME. CALL LIGHT IN REACH.
--- NOTE | 2023-04-01 08:37 | NUR ---
DISEASE CASE MANAGER ASSISTED PT UP TO CHAIR FOR BREAKFAST. DISEASE CASE MANAGER POSITIONED THE CHAIR NEXT TO THE BED SO THE PT ONLY HAD TO STAND AND PIVOT INTO THE CHAIR. PT STOOD AND PIVOTED WITH ONLY A SBA. NO WALKER OR ADDITIONAL ASSISTANCE NEEDED. PT STATED, "I WOULD NEED MORE HELP OR A WALKER IF I HAD TO GO ANY FARTHER THAN THAT." PT HAS TWO PILLOWS UNDER HIS BOTTOM AND TWO PILLOWS BEHIND HIS BACK. PT DENIED THE NEED FOR A SHOWER TODAY BUT THINKS HE WOULD LIKE ONE TOMORROW. PERSONAL ITEMS WITHIN REACH. CALL LIGHT WITHIN REACH. NO OTHER NEEDS AT THIS TIME.
--- NOTE | 2023-04-01 09:43 | NUR ---
SITTING UP IN CHAIR. VERIFIED DEMOGRAPHICS WITH PATIENT. STATES HE LIVES AT HOME WITH , KARLO. THERE ARE STAIRS IN THE HOME BUT HE HAS NO DIFFICULTY WITH NAVIGATING THEM. HAS A CPAP MACHINE HE USES AT HOME, USES A CANE FOR AMBULATION AND HAS A WALKER AT HOME IF NEEDED. CURRENTLY USING CANE TO AMBULATE. ILEOSTOMY TAKEDOWN, NO LONGER NEEDS OSTOMY SUPPLIES. STATES HE IS CONCERNED ABOUT WOUND CARE REGARDING HIS INCISION. UNLIKELY NEED FOR WOUND MANAGEMENT, BUT WILL REFER IF NEEDED. DENIES ANY OTHER POTENTIAL NEEDS AT THIS TIME. INFORMED TO NOTIFY STAFF IF HE THINKS OF NEEDS. VERBALIZES UNDERSTANDING.
--- NOTE | 2023-04-01 10:36 | NUR ---
IN TO ROUND ON PT. BOLUS INFUSING WNL. PT REPORTING PAIN 8/10 IN ABD. PT DENIES PRN PAIN MEDICATION WHEN OFFERED. OFFERED PT ICE PACK. PT ACCEPTS. ICE PACK PROVIDED. WAITING FOR BOLUS TO COMPLETE AND THEN IV ABX WILL BE STARTED. FWW PROVIDED. PT DENIES ANY OTHER NEEDS AT THIS TIME. CALL LIGHT IN REACH.
--- NOTE | 2023-04-01 11:02 | NUR ---
IN IV PUMP ALARMING. BOLUS COMPLETE. BP 107/67. IV ABX STARTED, SEE MAR. PT UP IN RECLINER. OSTOMY SITE DRESSING CHANGED WITH PLANE GAUZE, SECURED WITH MEDIPORE TAPE. MIGUELITO DRAIN EMPTIED 60ML OF SANGUENOUS FLUID. PT REPORTING PAIN 9/10 IN ABD. WILL RETURN WITH PRN PAIN MEDICATION. PT ALSO REPORTING NAUSEA. WILL RETURN WITH PRN NAUSEA MEDICATION.
--- NOTE | 2023-04-01 11:23 | NUR ---
IN TO ADMINISTER PRN PAIN MEDICATION AND NAUSEA MEDICATION. PT DENIES ANY OTHER NEEDS AT THIS TIME. CALL LIGHT IN REACH.
--- NOTE | 2023-04-01 11:23 | NUR ---
PATIENT IS FAMILIAR TO ME FROM PREVIOUS ADMISSIONS. HE STATES HE WAS EATING WELL BEFORE THIS SURGERY. HIS WEIGHT IS BACK UP TO 170 LBS. HE STILL PREFERS A MOSTLY VEGETARIAN DIET. HE IS ONLY ON CLEAR LIQUIDS RIGHT NOW. ONCE HIS DIET IS ADVANCED, DIETARY STAFF WILL WORK WITH HIM TO PROVIDE VEGETARIAN MEALS AND FINE TUNE HIS FOOD/BEVERAGE PREFERNCES.
[2023-04-01] MEDS ORDERED: AZELAIC ACID50 GM TOP (11:39)
[2023-04-01] MEDS ORDERED: AMLODIPINE BESYL5 MG PO (12:37)
[2023-04-01] MEDS ORDERED: PATADAY5 ML OU (12:37)
[2023-04-01] MEDS ORDERED: VENTOLIN HFA18 GM INH (12:38)
[2023-04-01] MEDS ORDERED: SUMATRIPTAN SUC50 MG PO (12:38)
[2023-04-01] MEDS ORDERED: DOXYCYCLINE HY100 MG PO (12:39)
[2023-04-01] MEDS ORDERED: CICLOPIROX15 GM TOP (12:39)
[2023-04-01] MEDS ORDERED: DESONIDE15 GM TOP (12:43)
[2023-04-01] MEDS ORDERED: CLARITIN10 MG PO (12:44)
[2023-04-01] MEDS ORDERED: NITROSTAT0.4 MG SL (12:44)
--- NOTE | 2023-04-01 12:45 | NUR ---
MED REC COMPLETE
--- NOTE | 2023-04-01 12:50 | NUR ---
PT SITTING IN CHAIR. GREETED ME PLEASANTELY. PT HAS POSITIVE OUTLOOK AND IS IN GENERALLY GOOD SPIRITS. EXERCISED MINISTRY OF PRESENCE PT TALKED OF PAST CHALLENGES. PT CONSENTED TO PRAYER. PRAYED FOR HEALING AND ABIDING PEACE. LEFT GUIDEPOST AND CONTACT CARD.
--- NOTE | 2023-04-01 13:29 | NUR ---
IN TO ROUND ON PT. PT SITTING UP IN RECLINER. ON COUCH. PT REPORTING PAIN 6/10 AND STATES "IT IS TOLERABLE RIGHT NOW." PT DENEIS PRN PAIN MEDICATION WHEN OFFERED. NEW ICE PACK PROVIDED. WATER PROVIDED FOR PT AND . PT DENIES ANY OTHER NEEDS AT THIS TIME. CALL LIGHT IN REACH.
--- NOTE | 2023-04-01 14:43 | NUR ---
IN TO ADMINISTER MEDICATION. PT REQUESTING TO AMBULATE. THIS RN AMBULATES LAW WITH PT. PT USES FWW AND SBA AND AMBULATES LAW X2 LAPS. MIGUELITO DRAIN EMPTIED. ASSESSMENT COMPLETE. BOWEL TONES HYPOACTIVE. ABD TENDER WITH PALPATION. MIDLINE DRESSING D/I WITH SMALL AMOUNT OF SHADOWING NOTED. RUQ DRESSING C/D/I. RLQ MIGUELITO DRESSING C/D/I. PT REPORTING PAIN 04/01. PT REQUESTING PRN PAIN MEDICATION. WILL RETURN WITH PRN PAIN MEDICATION. PT DENIES ANY OTHER NEEDS AT THIS TIME. CALL LIGHT IN REACH. PT UP IN RECLINER.
--- NOTE | 2023-04-01 16:19 | NUR ---
CALL LIGHT ANSWERED. PT STATED THAT HE IS COLD AND SHAKEY. TILER GAVE PT TWO WARM BLANKETS. SHIVERING APPEARED TO GET SLIGHTLY BETTER. WILL CONTINUE TO MONITOR. CALL LIGHT IN REACH.
--- NOTE | 2023-04-01 16:43 | NUR ---
IN TO ROUND ON PT. PT UP IN RECLINER. PT REPORTING PAIN 9/10 IN ABD. PRN PAIN MEDICATION ADMINISTRED, SEE MAR. PT REPORTING NAUSEA WELL. PRN NAUSEA MEDICATION ADMINISTRED, SEE MAR. SCHEDULED MEDICATION ADMINISTERED, SEE MAR. PT REQUESTING WARM BLANKET. WARM BLANKET PROVIDED. PT DENIES ANY OTHER NEEDS AT THIS TIME. CALL LIGHT IN REACH.
--- NOTE | 2023-04-01 17:49 | NUR ---
IN TO ADMINISTER MEDICATION, SEE MAR. PT REPORTING PAIN 12/30. PT DENIES PRN PAIN MEDICATION WHEN OFFERED. IV INFUSING WNL. PT REQUESTING TO USE RESTROOM. SBA WITH FWW FROM RECLINER TO RESTROOM. PT EDUCATED TO USE BLUE PULL CORD ON WALL WHEN FINISHED. PT VERBALIZES UNDERSTANDING. PT DENIES ANY OTHER NEEDS AT THIS TIME.
--- NOTE | 2023-04-01 17:58 | NUR ---
IN TO ANSWER CALL LIGHT. PT FINISHED IN RESTROOM. SMALL BM NOTED. PT AMBULATES WITH FWW BACK TO BED. MIGUELITO DRAIN EMPTIED 40ML. PT DENIES ANY OTHER NEEDS AT THIS TIME. CALL LIGHT IN REACH.
--- NOTE | 2023-04-01 19:25 | NUR ---
PATIENT RESTING IN BED, AWAKE, BEDSIDE REPORT GIVEN BY SUMMER. PATIENT WITH NO C/O
--- NOTE | 2023-04-01 20:27 | NUR ---
pt reports 03/23 abd pain and nausea. prn pain and nausea meds profived. iv fluids infusing per order. pt states no other needs at this time. call light in reach.
--- NOTE | 2023-04-01 20:29 | NUR ---
pt reports 8/10 abd pain and nausea. prn pain and nausea meds profived. iv fluids infusing per order. pt states no other needs at this time. call light in reach.
--- NOTE | 2023-04-01 22:04 | NUR ---
Wilfrid is resting in bed, lights out, VSS except BP still soft but maintaining in parameters, cpap on, Abd. soft, non distended, states he is passing flatus, hypoactive BT's, c/o slight pain and nausea and medicated for both, MIGUELITO intact and compressed. dunn intact with adequate urine output.
--- NOTE | 2023-04-01 23:04 | NUR ---
Wilfrid ambulated the chacon with assist of 1 person and FWW, tolerated well. Assisted with set up of CPAP, lights out and patient appears comfortable.
--- NOTE | 2023-04-02 01:12 | NUR ---
THIS RN IN ROOM TO ROUND ON pt, PRIMARY RN AT RN STATION ATTEMPTING TO RESET [employer] P[employer].pt RESTING QUIETLY IN BED WITH EYES CLOSED, ON CPAP MACHINE. CPOX AT BEDSIDE SHOWS SPO2 UPPER 90'S, HR 100. NO DISTRESS NOTED, RR EVEN AND UNLABORED. CALL LIGHT IN REACH.
[2023-04-02 02:00] VITALS: BP 97/60
--- NOTE | 2023-04-02 02:12 | NUR ---
lab in room to collect ordered 0200 labs, to run as stat.
[2023-04-02 02:22] LABS: MCH 29.6 (27-36); MCHC 32.3 g/dl (30-36); MCV 91.5 fl (81-99)
--- NOTE | 2023-04-02 02:22 | NUR ---
Wilfrid is awake having some abdominal discomfort and medicated for discomfort with .5mg diliadid. BP remains soft at 97/60, Temp 100.7, MIGUELITO drain emptied with drainage appearing a bile/red mix 30ml. BT's remain hypoactive. Abd dressings intact. Urine output 125. Notified MD by phone of all above information. Dr. Villatoro at bedside assessing patient. Discussed plan of care with patient. Made NPO, 1 liter bolus LR started. Blood sugar 143 and 1 unit given. Tylenol IV ordered and given, New antibiotic ordered and given.
[2023-04-02 02:24] LABS: BASOPHILS 0.1 % (0-2); HEMOGLOBIN 8.7 g/dL (12.0-18.0); NEUTROPHILS 90.9 % (39-80); PLATELET COUNT 123 K/uL (140-440); RBC 2.95 M/ul (4.3-5.7); RDW 15.1 (10.5-15.0)
[2023-04-02 02:41] LABS: ANION GAP 14.6 (7-21); BUN/CREATININE RATIO 20.81 (6.0-28.6); CALCIUM 8.1 mg/dL (8.5-10.1); CREATININE, SERUM 1.97 mg/dL (0.70-1.30); POTASSIUM 4.6 mmol/L (3.5-5.1)
--- NOTE | 2023-04-02 02:51 | NUR ---
warehouse assembly worker fernandez at rn station and updated on new orders/poc/labs regarding pt.
--- NOTE | 2023-04-02 03:27 | NUR ---
DR PRO CALLED AND REQUESTED RESULTS FROM 0200 LABS, DISCUSSED CREATININE, WBC, AND PLATELETS PER MD REQUEST. MIGUELITO DRAIN SHOWS VERY SCANT LIQUID OUTPUT SINCE EMPTIED BY PRIMARY RN, NEARLY EMPTY. DARK BROWN IN COLOR AND LIQUID IN CONSISTENCY.MD MADE AWARE. NO NEW ORDERS RECEIVED AT THIS TIME. PRIMARY RN HEATHER IN ROOM AND UPDATED ON CONVERSATION.
[2023-04-02 05:16] VITALS: BP 95/61
[2023-04-02 05:24] LABS: HEMATOCRIT 25.6 % (35.0-50.0); HEMOGLOBIN 8.5 g/dL (12.0-18.0); LYMPHOCYTES 2.8 % (24-44); MCHC 33.1 g/dl (30-36); RBC 2.82 M/ul (4.3-5.7)
[2023-04-02 05:26] LABS: BASOPHILS 0.2 % (0-2); EOSINOPHILS 0.2 % (0-6); MCH 30.1 (27-36); MCV 90.7 fl (81-99); MONOCYTES 7.2 % (0-12); NEUTROPHILS 89.6 % (39-80); PLATELET COUNT 116 K/uL (140-440)
[2023-04-02 05:34] LABS: ANION GAP 15.8 (7-21); BUN/CREATININE RATIO 19.6 (6.0-28.6); CALCIUM 8.1 mg/dL (8.5-10.1); CREATININE, SERUM 2.04 mg/dL (0.70-1.30); POTASSIUM 4.8 mmol/L (3.5-5.1)
--- NOTE | 2023-04-02 05:48 | NUR ---
[facility] BP has remained soft 90's/50's, Temp duriing the night up to 100.7, Urine output low mid shift at 125ml out of dunn. Md notified by phone and MD came in at bedside to assess patient. bolus of LR given with increase urine output this am but minimal change to BP, Tylenol IV given and patient stated it made him feel better and temp down to 98. IV infiltrated during the night and new site started in left wrise without difficulty. Wilfrid is now NPO, BT's remain hypoactive. MIGUELITO had 30ml out mid shift and has minimal since then. Blood sugar at 4142=011 and 3units given. At 0200 check = 143 and 1 unit given.
--- NOTE | 2023-04-02 07:10 | NUR ---
REPORT RECEIVED FROM SHAR ROMERO. PT LAYING IN BED. EYES CLOSED. RR EVEN AND UNLABORED. NO NEEDS IDENTIFIED AT THIS TIME. CALL LIGHT IN REACH.
--- NOTE | 2023-04-02 08:36 | NUR ---
IN TO ADMINISTER MEDICATIONS, SEE MAR. ASSESSMENT COMPLETE. LUNG SOUNDS CLEAR. BOWEL TONES HYPOACTIVE. ABD TENDER WITH PALPATION. MIDLINE DRESSING D/I WITH SMALL AMOUNT OF SHADOWING. RUQ DRESSING D/I WITH SCANT AMOUNT OF SHADOWING. RLQ MIGUELITO DRAIN DRESSING D/I WITH SCANT AMOUNT OF SHADOWING. PO MEDICATIONS HELD AT THIS TIME UNTIL CONFIRMATION WITH MD PT IS NPO AT THIS TIME. PT DENIES ANY OTHER NEEDS AT THIS TIME. CALL LIGHT IN REACH.
--- NOTE | 2023-04-02 08:40 | NUR ---
THIS RN ATTEMPTED TO CALL DR. PRO REGARDING PO MEDICATIONS PT IS NPO AT THIS TIME.
--- NOTE | 2023-04-02 10:12 | NUR ---
PT RESTING IN BED. INDICATED LAST NIGHT HAD NOT BEEN GOOD. STILL OPTIMISTIC AND WILLING TO FACE WHAT COMES BUT SPIRITS WERE DOWN. CONSENTED TO PRAYER. PRAYED FOR KNOWLEDGE OF DIVINE PRESENCE AND ONGOING HEALING.
--- NOTE | 2023-04-02 10:49 | NUR ---
THIS RN CALLED OR CHARGE NURSE TO ASK IF DR. PRO WOULD STILL LIKE PT TO HAVE PO MEDICAITONS WITH SIP OF WATER. PER DR. PRO "OKAY TO GIVE PT PO MEDICATIONS WITH SIP OF WATER."
--- NOTE | 2023-04-02 12:33 | NUR ---
IN TO ANSWER CALL LIGHT. IV PUMP ALARMING, RESOLVED. PT DENIES ANY OTHER NEEDS AT THIS TIME. CALL LIGHT IN REACH.
[2023-04-02 13:13] LABS: EOSINOPHILS 0.1 % (0-6); MCV 92.3 fl (81-99)
[2023-04-02 13:15] LABS: BASOPHILS 0.3 % (0-2); HEMATOCRIT 28.4 % (35.0-50.0); LYMPHOCYTES 2.1 % (24-44); MCH 29.6 (27-36); MCHC 32.1 g/dl (30-36); MONOCYTES 6.8 % (0-12); NEUTROPHILS 90.7 % (39-80); PLATELET COUNT 105 K/uL (140-440); RBC 3.07 M/ul (4.3-5.7)
[2023-04-02 13:16] LABS: HEMOGLOBIN 9.1 g/dL (12.0-18.0)
--- NOTE | 2023-04-02 13:28 | NUR ---
THIS RN IN TO ROUND ON PT. PT REPORTING PAIN 11/30 PT DENIES PRN PAIN MEDICATION AT THIS TIME. MIGUELITO DRAIN EMPTIED. ONEIL EMPTIED. PT DENIES ANY OTHER NEEDS AT THIS TIME. CALL LIGHT IN REACH.
[2023-04-02 13:58] LABS: ABO O; ANTIBODY SCREEN NEGATIVE; RH POSITIVE
[2023-04-02 14:29] VITALS: BP 88/61
--- NOTE | 2023-04-02 15:52 | NUR ---
THIS RN NOTIFIED BY SHAR ELLIS ABOUT PTs DRESSING BECOMING SATURATED. IN TO ROUND ON PT. BP CHECKES 92/61. PULSE OF 91. PT DENIES ANY INCREASE IN PAIN. MIDLINE DRESSING NOTED TO BE SATURATED HALF WAY DOWN DRESSING AND LOWER PORTION PEALING OFF. MIGUELITO DRAIN DRESSING SATURATED. RUQ DRESSING D/I WITH SMALL AMOUNT OF SHADOWING NOTED. THIS RN ATTEMPTED TO CALL DR. PRO X3. NO ANSWER FROM [facility]. WILL ATTEMPT TO CALL AGAIN.
[2023-04-02 16:08] VITALS: BP 92/61
--- NOTE | 2023-04-02 16:32 | NUR ---
THIS RN CALLED DR. PRO AGAIN REGARDING PTs DRESSING. NEW ORDERS "REMOVE DRESSING AND APPLY GAUZE. DRESSING CHANGES PRN." VERIFIED WITH READBACK.
--- NOTE | 2023-04-02 17:04 | NUR ---
THIS RN IN TO CHANGE DRESSING PER DR. PRO. OLD DRESSINGS REMOVED. PATTED AREA DRY. GAUZE PLACED OVER MIDLINE INCISION, AND OSTOMY SITE. NEW GAUZE SPONGE PLACED AROUND MIGUELITO DRAIN. ALL SECURED WITH MEDIPORE TAPE. NEW GOWN PROVIDED. PT STANDS UP FROM RECLINER SO THIS RN CAN CHANGE SHEETS UNDER PT SHEETS HAD DARK RED COLORED DRAINAGE. NEW PILLOW CASES FOR PILLOW. CHUCKS PAD PLACED. PT SITS BACK IN RECLINER. THIS RN NOTICES DRAINAGE ON PTs GOWN. LOWER PORTION OF DRESSING NOTED TO BE SATURATED WITH DARK RED DRAINAGE. SHAR LIM IN ROOM FOR A SECOND SET OF EYES. LOWER PART OF MIDLINE DRESSING CHANGED. NEW GAUZE APPLIED AND SECURED WTIH MEDIPORE TAPE. PT REQUESTING PRN PAIN MEDICATION AND NAUSEA MEDICATION. WILL RETURN WITH MEDICATION. PT DENIES ANY OTHER NEEDS AT THIS TIME. CALL LIGHT IN REACH.
[2023-04-02 18:00] VITALS: BP 91/58
--- NOTE | 2023-04-02 18:00 | NUR ---
IN TO ROUND ON PT. PT REQUESTING THIS RN TO LOOK AT DRESSING. LOWER PART OF MIDLINE DRESSING NOTED TO BE SATURATED WITH DARK RED COLORED DRAINAGE. OLD DRESSING REMOVED. PATTED AREA DRY WITH GAUZE. NEW GAUZE APPLIED AND SECURED WITH MEDIPORE TAPE. VITALS AND I&Os COMPLETE. PT DENIES ANY OTHER NEEDS AT THIS TIME. CALL LIGHT IN REACH.
--- NOTE | 2023-04-02 18:51 | NUR ---
THIS RN CALLED DR. PRO TO UPDATE HIM ABOUT HAVING TO CHANGE PTs DRESSING 3X. NEW ORDERS RECEIVED, VERIFIED WITH READBACK. "GET A CBC AND LET ME KNOW IF IT IS LESS THAN 25."
[2023-04-02 19:19] LABS: EOSINOPHILS 0.1 % (0-6); LYMPHOCYTES 2.2 % (24-44); PLATELET COUNT 110 K/uL (140-440)
[2023-04-02 19:20] LABS: BASOPHILS 0.2 % (0-2); HEMATOCRIT 28.2 % (35.0-50.0); MCH 29.5 (27-36); MCV 92.2 fl (81-99); MONOCYTES 8.1 % (0-12); NEUTROPHILS 89.4 % (39-80); RBC 3.06 M/ul (4.3-5.7); RDW 14.9 (10.5-15.0)
[2023-04-02 20:00] VITALS: BP 86/56
--- NOTE | 2023-04-02 20:40 | NUR ---
Wilfrid up in chair without complaint, Temp 100.6, Having patient use IS and recheck was 98.6. BP 86/56 MAP 63. Hct came back at 28.2 Wilfrid denies discomfort at this time and no nausea. Abd drsg intact with small amt. of drainage to lower area of dressing. MIGUELITO intact and compressed. BT's hypoactive. Bedside report given by Ani. Called MD with above information - he would like to continue monitoring patient, no changes
--- NOTE | 2023-04-02 21:43 | NUR ---
lower portioin of midline abd. dressing changed, mod serosang drainage, nichol intact, well approx. MIGUELITO intact emptied 60ml. Sellers intact draining 200ml output. Assisted Wilfrid to bed, CPAP on, call light in reach.
--- NOTE | 2023-04-02 22:36 | NUR ---
PT RATES PAIN 10/10 TO ABD. PRN ADMINISTERED PER EMAR. PT STATES THAT HE CAN FEEL IT WORKING. LIGHTS TURNED OUT, CURTAIN AND DOOR REMAIN OPEN PER PT REQUEST. FURTHER NEEDS DENIED. CALL LIGHT IN REACH.
[2023-04-03] VITALS (8 sets, daily range): BP systolic 86–104; BP diastolic 56–70
--- NOTE | 2023-04-03 00:40 | NUR ---
Wilfrid is sleeping on and off, lower portion of abdominal dressing changed. MIGUELITO with 30ml output, dunn with 100ml (maintaining MD parameters thus far). Denies need for anything for pain or nausea.
--- NOTE | 2023-04-03 02:22 | NUR ---
Wilfrid is sleeping well, Abdominal drsg dry,clean, intact, Blood sugar 128 and no insulin required, Wilfrid with no complaints, appears comfortable.
--- NOTE | 2023-04-03 04:09 | NUR ---
Meg up to BSC independently, she feels she is getting strong and is moving well. Had unmeasured amount of urine and liquid stool. No complaints, call light in reach and lights out.
[2023-04-03 05:34] LABS: BASOPHILS 0.6 % (0-2); EOSINOPHILS 0.6 % (0-6); HEMATOCRIT 24.6 % (35.0-50.0); LYMPHOCYTES 3.9 % (24-44); MCH 29.6 (27-36); MCHC 32.6 g/dl (30-36); MCV 90.7 fl (81-99); MONOCYTES 11.2 % (0-12); NEUTROPHILS 83.7 % (39-80); PLATELET COUNT 101 K/uL (140-440); RBC 2.71 M/ul (4.3-5.7); RDW 14.9 (10.5-15.0)
[2023-04-03 05:42] LABS: ANION GAP 12.2 (7-21); CALCIUM 8.7 mg/dL (8.5-10.1); CREATININE, SERUM 1.75 mg/dL (0.70-1.30); POTASSIUM 4.2 mmol/L (3.5-5.1)
--- NOTE | 2023-04-03 06:02 | NUR ---
Wilfrid felt like he slept better last night. Tolerating CPAP with 100% O2 sats, BP remains soft with this am reading at 93/56. Urine output has been adequate per MD parameters. Blood sugars at 2000-114 and 2727=810, requiring no insulin coverage this shift. Only needing pain medication once. Passing small amounts of flatus, BT's hypoactive, remains NPO. MIGUELITO total of rust/red fluid = 90ml. Abdominal dressing changed 3 times during the night. Leaking more with movement. Incision remains intact with nichol.
--- NOTE | 2023-04-03 07:34 | NUR ---
REPORT RECEIVED FROM SUPPORT WORKER RN, ALL QUESTIONS ANSWERED. PT AWAKE IN BED, DENIES PAIN, DIZZINESS OR NAUSEA AT THIS TIME. ABD AND MIGUELITO DRESSINGS CDI AT THIS TIME. PT DENIES NEEDS AT THIS TIME. CALL LIGHT IN REACH.
--- NOTE | 2023-04-03 10:01 | NUR ---
IN ROOM TO DO MORNING ASSESSMENT, PT RESTING IN BED AWAKE. STATES PAIN IS TOLERABLE AT THIS TIME. MIDLINE DRESSING CDI. PT REQUESTED TO GET INTO RECLINER. PT TO EDGE OF BED AND UPON STANDING, LARGE AMOUNT OF RUST/BROWN, THICK DRAINAGE FLOWING FROM MIDLINE INCISION TO FLOOR. PT SAT IN CHAIR, MIDLINE DRESSING REMOVED, LARGE AMOUNT OF DRAINAGE CONTINUES TO FLOW FROM MIDLINE INCISION. MIGUELITO DRAIN WITH NO ADDIDTIONAL DRAINAGE IN DRAIN OR FROM INSERTION SITE. JORGE RN IN ROOM TO ASSESS WITH THIS RN.
--- NOTE | 2023-04-03 10:21 | NUR ---
CALLED PLACED TO DR PRO REGARDING DRAINAGE FROM MIDLINE INCISION. INSTRUCTION AT THIS TIME TO GET PT BACK TO BED, AND HE WOULD BE IN TO SEE PT SHORTLY. PT AMBULATED BACK TO BED. ONCE LAYING IN BED, DRAINAGE FLOW CONTINUES. AIR BUBBLES NOTED TO COME FROM MIDLINE INCISION AT THIS TIME WELL. DR PRO IN ROOM TO SEE PATIENT, INFORMED OF AIR FROM MIDLINE. DR PRO DISCUSSED SURGERY WITH PT.
[2023-04-03 13:09] LABS: AHG CROSSMATCH COMPATIBLE
[2023-04-03 13:10] LABS: AHG CROSSMATCH COMPATIBLE
[2023-04-03 13:42] LABS: ABO O; RH POSITIVE
--- NOTE | 2023-04-03 14:21 | NUR ---
REPORT RECEIVED FROM PACU RNS - ASSUMING CARE FOR PT. PT AAO, SPEAKING IN COMPLETE SENTENCES WITH ACCURATE MEMORY OF PAST EVENTS. RATES PAIN 3/10 WHICH HE STATES IS TOLERABLE. ROOM AIR. VS WNL. SCD'S IN PLACE. WOUNDVAC ON AND FUNCTIONING WITHOUT DIFFICULTY. OSTOMY PINK. MIGUELITO DRAIN IN RLQ WITH SEROSANG FLUID.
--- NOTE | 2023-04-03 14:56 | NUR ---
04/03/23 1456 Melania Guthrie 1349- PT ARRIVES TO CCU FROM OR. GERBER SIMS AT BEDSIDE, REPORT GIVEN TO CCU RN ROSALINDA & ANG RN. ORAL AIRWAY IN PLACE AND O2>90% VIA MASK. RESPIRATIONS ARE EVEN AND UNLABORED, NO SIGNS OF DISTRESS. PT IS NONAROUSABLE AT THIS TIME. 1358- PT IS REACTIVE TO TACTILE STIMULI AND ORAL AIRWAY REMOVED. 1359- PT MASK REMOVED AND NOW ON RA. PT REORIENTED TO CCU ROOM. PT LOOKING AROUND ROOM AT THIS TIME. DENIES ANY PAIN/NAUSEA. 1405- PT PERIODICALLY OPENS EYES AND FALLS BACK ASLEEP. SLIGHT AUDIBLE SNORE AT REST, O2 REMAINS >90% AT THIS TIME. PT ASKS QUESTIONS APPROPRIATELY. 1413- MORTEZA ANDRES AT BEDSIDE AND PT ASKING QUESTIONS ABOUT PROCEDURE, ALL QUESTIONS ANSWERED BY MORTEZA ANDRES AT THIS TIME. 1420- REPORT GIVEN TO ROSALINDA MYLES. SURGICAL SITES VISUALIZED WITH CCU RN AT THIS TIME. MIGUELITO DRAIN EMPTIED, WOUND VAC REMAINS AT 120 MMHG (PLUGGED IN). BED AND SCD MACHINE PLUGGED IN AT THIS TIME. PT PROVIDED EXTRA WARM BLANKETS. ROSALINDA MYLES REMAINS AT BEDSIDE, NO FURTHER QUESTIONS OR NEEDS AT THIS TIME.
--- NOTE | 2023-04-03 17:37 | NUR ---
Pt RESTING IN BED WITH HOB ELEVATED SIPPING ON CLEAR LIQS TRAY. DENIES NEED FOR PAIN COVERAGE AT THIS TIME. DENIES NAUSEA. VS REMAIN STABLE.
--- NOTE | 2023-04-03 20:45 | NUR ---
RECEIVED REPORT FROM SHAR SWEET AT SHIFT CHANGE; ALL QUESTIONS AND CONCERNS WERE ADDRESSED AT THIS TIME; UPON ASSESSMENT PT RATED PAIN 3/10, MIDLINE INCISION IS C/D/I, WOUND VAC INTACT, ILEOSTOMY IS INTACT WITH BROWN LIQUID IN BAG, URINE OUTPUT IS ADEQUATE, VSS, AFEBRILE, MONITORING I&O'S CLOSELY; UPDATED MD AROUND 1999 ABOUT PT STATUS/PROGRESS
[2023-04-04] VITALS (7 sets, daily range): BP systolic 95–125; BP diastolic 68–84
[2023-04-04 05:25] LABS: HEMOGLOBIN 8.1 g/dL (12.0-18.0); LYMPHOCYTES 2.5 % (24-44)
[2023-04-04 05:26] LABS: HEMATOCRIT 24.7 % (35.0-50.0); MCH 29.7 (27-36); MCHC 32.7 g/dl (30-36); MCV 90.9 fl (81-99); MONOCYTES 5.9 % (0-12); NEUTROPHILS 91.6 % (39-80); PLATELET COUNT 114 K/uL (140-440); RBC 2.72 M/ul (4.3-5.7); RDW 15.1 (10.5-15.0)
--- NOTE | 2023-04-04 05:30 | NUR ---
iv pump alarming. new bag iv fluids provided. no other needs. call light in reach.
[2023-04-04 05:32] LABS: ANION GAP 13.5 (7-21); BUN/CREATININE RATIO 23.44 (6.0-28.6); CALCIUM 8.9 mg/dL (8.5-10.1); CREATININE, SERUM 1.45 mg/dL (0.70-1.30); POTASSIUM 4.5 mmol/L (3.5-5.1)
--- NOTE | 2023-04-04 05:48 | NUR ---
scheduled med provided. iv wnl. no other needs at this time. call light in reach.
--- NOTE | 2023-04-04 06:19 | NUR ---
PT SLEPT ON AND OFF THROUGHOUT SEAFOOD PACKER, ADEQUATE URINARY OUTPUT, AFEBRILE, MIDILINE INCISION IS C/D/I, VSS
--- NOTE | 2023-04-04 08:00 | NUR ---
Pt awake in bed working on crossword puzzle. denies pain at this time, states he slept well last night. Pt remains on room air, vs wnl, afebrile. cbg obtained, breakfast of clear liqs delivered.
--- NOTE | 2023-04-04 09:15 | NUR ---
IN PT ROOM TO EMPTY ILEOSTOMY. PT GOWN SATURATED W FLUID LEAKING FROM OSTOMY. OSTOMY EMPTIED. PT CLEANED. PT REFUSED NEW GOWN UNTIL OSTOMY BAG CHANGED. RN NOTIFIED. TOWEL PLACED UNDER OSTOMY TO PROTECT SKIN. NO NEED. CALL LIGHT WITHIN REACH
--- NOTE | 2023-04-04 10:32 | OR ---
[facility] [address], [place] [address] Signed DATE OF OPERATION: 03/31/2023 SURGEON: Michael Pro MD PREOPERATIVE DIAGNOSES: 1. 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 3. Subsequent segmental small bowel resection related to liquefactive necrosis secondary prolonged and severe pressor agents during critical illness. 3. History of extensive intra abdominal abscesses requiring operative drainage and 4..Known urethral stricture requiring cystoscopic catheter placement POSTOPERATIVE DIAGNOSES: 1. Ileostomy with known separate colocutaneous fistula. 2. 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 3. Subsequent segmental small bowel resection related to liquefactive necrosis secondary to need for pressor agents during critical illness. 4. Known urethral stricture. 5. 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 PROCEDURES: 1. Flexible cystoscopy with over the wire placement of 16-Gibraltarian Sellers catheter. 2. Exploration and extensive lysis of adhesions of abdominal cavity. 3. Partial colectomy/ proctectomy with resection of colocutaneous fistula from residual diverticulum of sigmoid remnant. 4. Segmental small bowel resection with subsequent side to end coloproctostomy ( hand sewn anastomosis. 5. Leak testing of anastomosis and application of fibrin glue to ileoproctostomy POLITICAL SCIENCE CHAIR: Dorothy Aguirre RN. OPERATIVE SCRUB: Joi Amor RN. ANESTHESIA: General endotracheal; Radha Huddleston CRNA ... additional postoperative TAP blocks. Electronically Signed By: MICHAEL PRO MD 04/04/23 1032 PATIENT NAME: DAVID POTTS OPERATIVE REPORT DATE OF : 57 REPORT #: [id number] PHYSICIAN: MICHAEL PRO MD PCP: Tristan Carrera DO REPORT IS CONFIDENTIAL AND NOT TO BE RELEASED WITHOUT AUTHORIZATION [facility] [address], [place] [address] Signed DRAIN: A 7 mm Raúl. INDICATION: This 67-year-old white man has a complex past medical history, which began in March of last year. He presented with septic shock related to toxic megacolon and perforated diverticulitis. Other details can be found in those documents, but he did undergo subtotal colectomy with end-ileostomy. He required extensive and prolonged pressor agent support due to his severe toxicity and subsequently suffered segmental small bowel infarction requiring re-laparotomy, resection of segments of small bowel, and placement of drains. He had prolonged postoperative course including persistent drainage of purulent material. He ultimately underwent exploration, drainage and segmental small bowel resection with omental patch of several areas of small bowel. He has been recuperating over a number of months and now has optimized nutrition and complete resolution of any septic features. He did develop a persistent draining sinus in the region of the midline incision. Preoperative evaluation included small bowel follow through xray showing no impediment to enteric flow, stricture or fistula. Additionally he underwent CT of the abdoment and flouroscopic sinogram which showed a colocutaneous fistula (sinus actually) to the rectosigmoid remnant. We have long anticipated plan for definitive takedown of the ileostomy and resection of any remaining sigmoid with portion of rectum. He has been optimized for operation. He understands, as does his family, the risk of bleeding, infection, anastomotic failure, and other unforeseen complications and wished to proceed. FINDINGS: Indeed, the colocutaneous fistula did extend to the rectosigmoid remnant, likely related to a diverticulum. Complete resection of fistula was accomplished. A small segment of small bowel, which contiguous with the fistula was resected as well. A side-to-end coloproctostomy was ultimately accomplished and leak testing showed no sign of problem. Though he had extensive intraabdominal adhesions, the small bowel was viable, though chronically friable. The operation was prolonged, complicated, and difficult lasting 7 hours in total. DESCRIPTION OF PROCEDURE: The patient was brought to the operating room and given a general endotracheal anesthetic. Preoperative antibiotic Ancef had been given, sequential compression device stockings used and Lovenox subcutaneously administered. Evaluation of the Electronically Signed By: MICHAEL PRO MD 04/04/23 1032 PATIENT NAME: DAVID POTTS OPERATIVE REPORT DATE OF : 57 REPORT #: [id number] PHYSICIAN: MICHAEL PRO MD PCP: Tristan Carrera DO REPORT IS CONFIDENTIAL AND NOT TO BE RELEASED WITHOUT AUTHORIZATION [facility] [address] [place] [id number] Signed abdomen showed the midline incision from the past to be quite soft. The ostomy (ileostomy) was quite viable and the sinus tract in the mid abdominal portion of the incision draining no evidence of enteric contents. The sponge-type dressings that had been placed were removed. The abdomen was then prepared with a chlorhexidine solution and draped sterilely after application of Ioban to contain enteric drainage from the ileostomy should it occur. A dense cicatrix was noted in the region of the fistulous tract. An incision was made in the midline cephalad to it. Dissection was carried through the subcutaneous tissue with electrocautery. Fascia was carefully incised allowing for entry to the abdominal cavity. Extensive meticulous dissection of intra-abdominal adhesions was undertaken. The incision was extended inferiorly as dissection would allow ultimately encountering the fistulous tract itself, which had chronic granulating tissue. The incision was extended cephalad and inferiorly as needed with complete mobilization of small bowel as appropriate. The area of the ileostomy on the right side of the abdomen showed viable small bowel loops, which were more superiorly oriented. Progressive dissection was undertaken inferiorly and ultimately, following the fistulous tract. Distinguishing bowel loops from each other and ultimately, the rectosigmoid remnant was challenging on the basis of extensive intra-abdominal adhesions. Meticulous care was undertaken in mobilizing small bowel loops, ultimately them well and ultimately identifying the rectosigmoid remnant. The fistulous tract was contiguous--but not penetrating- to small bowel loops. Some residual fistulous tract was allowed to maintain with small bowel as it was not impeding flow in any way. The fistulous tract was later excised including the skin portion and the fascial portion. Ultimately, the rectal remnant was fully mobilized and identifying it well from the bladder and other surrounding soft tissue. The rectal remnant was deemed appropriate for anastomosis after a plan for additional resection. Attention was turned towards the proximal bowel, where the ileal loops were freed from interloop adhesions and ultimately freed to the site of the ileum exiting the abdominal wall. A VENITA stapling device was used to transect the ileum as far distal as possible at that point. Further dissection was undertaken of the rectal remnant and an area of viable rectum well identified. A right angle clamp was applied across the mid rectum and the rectosigmoid remnant excised. Opening of the specimen on the back table by the circulating nurse showed a few scattered diverticula remaining and very likely the sinus Electronically Signed By: MICHAEL PRO MD 04/04/23 1032 PATIENT NAME: DAVID POTTS OPERATIVE REPORT DATE OF : 57 REPORT #: [id number] PHYSICIAN: MICHAEL PRO MD PCP: Tristan Carrera DO REPORT IS CONFIDENTIAL AND NOT TO BE RELEASED WITHOUT AUTHORIZATION [facility] [address], [place] [address] Signed tract or colocutaneous fistula was related to a diverticulum itself. There was no neoplasm identified. A side-to-end ileoproctostomy was then undertaken in 2-layer technique of interrupted 3-0 silk suture in the serosal layer and interrupted 3-0 Vicryl in the mucosal layer. The rectal remnant of course had only the muscular layer, not serosa proper. The circulating nurse was asked to insert a red rubber catheter into the rectum to allow for leak testing. Unfortunately, passage of the catheter resulted in a defect in the rectal stump separate and distinct from the anastomosis itself. The catheter was withdrawn. Assessment of the situation undertaken and it was deemed most appropriate to simply redo the anastomosis rather than hazard a tenuous rectal repair in the face of recent anastomosis. On that basis, a segment of small bowel was additionally resected, which included a portion of the fistulous tract anyway. The rectal remnant was freed and re configured to include the previous defect allowing for good visualization of the rectal muscle layer and the mucosa. The repeat anastomosis was undertaken in a side-to-end configuration, again with a serosal layer of 3-0 silk suture in a mucosal layer of interrupted 3-0 Vicryl. Leak testing was repeated with insufflation of air via the already positioned large red rubber catheter showing no air leak in the submerged saline in the suture line. The mesenteric defect was closed with interrupted 3-0 silk. Copious irrigation was undertaken of the abdomen after changing of gloves. Through a separate right lower quadrant incision, a 7 mm flat Raúl drain was placed into the depths of the pelvis. Reinspection of the small bowel showed it to be completely viable. Fibrin glue in an aerosolized manner was applied to the coloproctostomy, so as to additionally secure and enhance its healing. The midline fascia was then reapproximated with running bidirectional #1 PDS suture. The inner table of the abdominal wall at the site of the ileostomy takedown was repaired with interrupted 0 PDS suture prior to abdominal incision closure. Attention was then turned towards the remaining cutaneouus ileostomy. This was incised circumferentially with electrocautery and dissected free from the subcutaneous tissue. Anterior rectus sheath through which it penetrated was then reapproximated with interrupted 0 PDS suture. Copious irrigation was undertaken and the skin closed in both incisions with a stapling device. Notably, the ileostomy was excised after closure of the midline skin with a clipping device and application of an Acticoat dressing. The drain was attached to bulb suction. Electronically Signed By: MICHAEL PRO MD 04/04/23 1032 PATIENT NAME: DAVID POTTS OPERATIVE REPORT DATE OF : 57 REPORT #: [id number] PHYSICIAN: MICHAEL PRO MD PCP: Tristan Carrera DO REPORT IS CONFIDENTIAL AND NOT TO BE RELEASED WITHOUT AUTHORIZATION [address], [place] [address] Signed Blood loss was estimated at 100 mL. Sponge, needle, and instrument counts reported as correct x3. The operation was prolonged, complicated, and difficult lasting at least 7 hours in aggregate. MD ARIA Mane/BRIAN /[id number] cc: Tristan Carrera DO Copies: Tristan Carrera DO ~ Electronically Signed By: MICHAEL PRO MD 04/04/23 1032 PATIENT NAME: DAVID POTTS OPERATIVE REPORT DATE OF : 57 REPORT #: [id number] PHYSICIAN: MICHAEL PRO MD PCP: Tristan Carrera DO REPORT IS CONFIDENTIAL AND NOT TO BE RELEASED WITHOUT AUTHORIZATION
--- NOTE | 2023-04-04 10:32 | OR ---
[facility] [address] [place], [place] [address] Signed DATE OF OPERATION: 04/03/2023 SURGEON: Michael Pro MD PREOPERATIVE DIAGNOSES: 1. 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 2. Recent postoperative abnormal pelvic drainage. POSTOPERATIVE DIAGNOSES: 1. 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 2. Recent postoperative abnormal pelvic drainage. 3. Leak of anastomosis (5 mm) on right side of ileoproctostomy with otherwise intact ileoproctostomy. 4. generalized peritonitis. PROCEDURES: 1. Laparotomy with drainage of intra-abdominal fluid and peritoneal lavage. 2. Closure (repair) of focal anastomotic defect with application of fibrin glue. 3. Formation of diverting loop ileostomy. 4. Application of wound VAC device. ANESTHESIA: General endotracheal, [place], TRAVEL OT and bilateral TAP blocks and external oblique TAP blocks. DRAIN: 7 mm Raúl and continued Sellers catheter. 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 Initial operation included ileostomy, subtotal colectomy, and placement of drains. He required pressor agents extensively intraoperatively and postoperatively subsequently suffering segmental small bowel infarction requiring segmental bowel resection, placement of drains and gastrostomy placement. Despite his critical illness, he ultimately survived, though did have persistent abscess fluid drainage, ultimately requiring more than one abdominal operation for drainage of abscesses, segmental bowel resections and so on. His last Electronically Signed By: MICHAEL PRO MD 04/04/23 1032 PATIENT NAME: DAVID POTTS OPERATIVE REPORT DATE OF : 57 REPORT #: [id number] PHYSICIAN: MICHAEL PRO MD PCP: Tristan Carrera DO REPORT IS CONFIDENTIAL AND NOT TO BE RELEASED WITHOUT AUTHORIZATION [facility] [address] [place], [place] [address] Signed operation was in July of 2022. Over the past several months, he has had resumption of his outpatient health with a functioning ileostomy and has recovered from his problem nutritionally and otherwise. He did develop a draining fistula (sinus) of the rectosigmoid stump remnant to the midline fascia. 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 A drain was placed as well. In the 1st 48 hours, he had some drainage of the pelvic drain of dark brownish fluid, which appeared likely to be old blood;it did not have a bilious appearance or enteric smell or anything of that sort. His hematocrit was carefully monitored as well as other lab studies. He is somewhat neutropenic and platelet count is 101,000 today, hematocrit has drifted from 28 to 24. He had more copious output of his drain last night and egress of fluid from his incision, which appears to be a brownish rust colored and it still appears not to be bilious in nature. Given the possibility of intra-abdominal bleeding and of course, certainly the possibility of anastomotic failure, I have recommended exploration of the abdomen, identification of the source of the problem and remedy whatever that might be. We discussed the possibility that he may require ileostomy either temporary or permanent once again, may require additional bowel resection or other interventions. He understands these risks and wished to proceed. I have discussed this all with his on phone prior to operation. FINDINGS: Indeed enteric drainage was noted. The leak was identified at the anastomotic site of the ileoproctostomy on the right side. The remaining anastomosis was completely viable and intact. The leak was small but certainly troublesome. Generalized peritonitis was noted as would be expected. Bowel loops were densely matted together in the central abdomen. There appeared to be no other source of enteric leakage. The ileal segment extending to the pelvis was completely well vascularized and although chronically inflamed, in other ways was viable in every way. Ultimately he was deemed most advisable to simply repair the site of anastomotic leakage, apply fibrin glue and provide proximal diversion to the ileoproctostomy with a loop ileostomy approach. He tolerated the procedure well. There is no known ongoing leakage at the repair site. DESCRIPTION OF PROCEDURE: The patient was brought to the operating room, given a general endotracheal anesthetic. A drain emanating from the lower abdomen showed dark reddish brown fluid. Clips from the wound were removed. There appeared to be a more enteric appearing fluid in the base of the wound which was coming from the drain. The abdomen was prepared with a Betadine Electronically Signed By: MICHAEL PRO MD 04/04/23 1032 PATIENT NAME: DAVID POTTS OPERATIVE REPORT DATE OF : 57 REPORT #: [id number] PHYSICIAN: MICHAEL PRO MD PCP: Tristan Carrera DO REPORT IS CONFIDENTIAL AND NOT TO BE RELEASED WITHOUT AUTHORIZATION [facility] [address] [place], [place] [address] Signed based solution and draped sterilely. The drain allowed to remain in situ. It was emanating from the right lower quadrant. The midline fascia was opened after removing the running PDS type suture. The fascial edges were thickened and gummy and inflamed as would be expected as was the subcutaneous tissue. The abdomen was entered without problem and noted was significant peritoneal contamination and inflammation. Matted loops of small bowel were noted in the central abdomen. Irrigation was undertaken copiously. The upper abdomen and perihepatic recesses were spared of any contamination due to the compartmentalization of the abdominal contents. The ilium extending to the pelvis, though dense and matted initially and with a fibrinous peel covering was gently manipulated and exam of the low pelvic anastomosis undertaken. The anastomosis was completely intact, it appeared. With various manipulations of the small bowel, one could see a small leak in the right lateral aspect. There is no sign of ischemia to the rectal segment or the ileal limb. The cause for the leakage is uncertain. The defect measured about 5 mm on the jones right lateral aspect of the ileoproctostomy anastomisis. Copious irrigation was undertaken more cleansing the abdominal cavity. The ileal segment was gently freed from its surrounding matted adhesions of small bowel and given the relatively early nature of return to the operating room, the small bowel could be more fully . Adhesions in the upper abdomen were freed and completely normal small bowel proximal to the recent operation was mobilized from the abdominal wall sharply. Once the small bowel was fully freed and soft pliable normal bowel obtained, reinspection of the anastomotic area was undertaken. The two main options at this point were to completely disrupt the anastomosis and provide for an end ileostomy, oversew of the rectal stump and consideration for takedown at the later date-- versus preserve the anastomosis if possible. The latter was deemed most advisable under the circumstances as he was not systemically toxic, hypotensive or otherwise compromised at this time and the anastomosis appeared to be well vascularized and viable. The enteric leak at the site was gently probed with a tonsil clamp and extended no more than a quarter of an inch in length. This was carefully repaired with interrupted 3-0 Vicryl suture in the mucosal layer and interrupted 3-0 silk suture externally. Milking of the proximal small bowel through the ileoproctostomy showed no sign of leakage. I did not repeat the so-called insufflating leak test of the anastomosis at this point. Irrigation was undertaken more fully and the area was gently packed with laparotomy pads. The small bowel proximal to the anastomosis was very well mobilized. The previous ileostomy site on the right abdomen was opened, freeing the PDS suture that had recently Electronically Signed By: MICHAEL PRO MD 04/04/23 1032 PATIENT NAME: DAVID POTTS OPERATIVE REPORT DATE OF : 57 REPORT #: [id number] PHYSICIAN: MICHAEL PRO MD PCP: Tristan Carrera DO REPORT IS CONFIDENTIAL AND NOT TO BE RELEASED WITHOUT AUTHORIZATION [address] [address] Signed closed it. A loop of completely normal small bowel was delivered through the ileostomy site anticipating a diverting loop ileostomy. Application of aerosilized fibrin glue ( [place]) to the ileoproctostomy was then undertaken, providing additional seal to the anastomotic line. Attempts at identifying an area of omentum to allow for omental patch was quite unsuccessful; portions of it had been used in the past interventions already and it was simply not identifiable in the abdomen and unavailable for use. Attention was turned toward closure of the midline fascia. This was undertaken in a running bidirectional configuration with #1 PDS suture. Additionally placed were internal retention sutures of #1 PDS suture. Irrigation was undertaken of the subcutaneous space. It was deemed most advisable to apply wound VAC under the circumstances to provide additional appositional support on the friable fascia. The midline wound was isolated with a blue towel and attention turned towards maturation of the loop ileostomy. A transverse incision with electrocautery was made over the antimesenteric serosa of the externalized ileal loop. Using and inversion technique the proximal ileal limb was well matured and had good projection. The lower defunctionalized limb was similarly secured-- all of this with 3-0 Vicryl. An ostomy appliance was applied to the site and subsequently a wound VAC sponge and adhesive dressing to the midline fascia. Note was made of the drain, which was now clear serosanguineous and without any sign of enteric drainage. Suctioning showed no sign of persistent enteric leakage or foul fluid. The patient subsequently underwent TAP blocks by the welding machine operator thermit, ultimately transported to the recovery room in good condition having suffered no known complications. Sponge, needle, and instrument counts were reported as correct x3. MD ARIA Mane/BRIAN /[id number] Electronically Signed By: MICHAEL PRO MD 04/04/23 1032 PATIENT NAME: DAVID POTTS OPERATIVE REPORT DATE OF : 57 REPORT #: [id number] PHYSICIAN: MICHAEL PRO MD PCP: Tristan Carrera DO REPORT IS CONFIDENTIAL AND NOT TO BE RELEASED WITHOUT AUTHORIZATION [address] [address] Signed cc: Dr. Copies: ~ Electronically Signed By: MICHAEL PRO MD 04/04/23 1032 PATIENT NAME: DAVID POTTS OPERATIVE REPORT DATE OF : 57 REPORT #: [id number] PHYSICIAN: MICHAEL PRO MD PCP: Tristan Carrera DO REPORT IS CONFIDENTIAL AND NOT TO BE RELEASED WITHOUT AUTHORIZATION
--- NOTE | 2023-04-04 11:15 | NUR ---
OSTOMY APPLIANCE CHANGED DUE TO LEAKING UNDER APPLIANCE. SITE AROUND STOMA CLEAR OF ANY BREAKDOWN, STOMA PINK AND GRANULATING WITH ADEQUATE LIQUID STOOL OUTPUT. WOUND VAC SEAL INTACT.
--- NOTE | 2023-04-04 12:45 | NUR ---
Pt up to bedside chair as standby assist using fww. Pt stable on feet. eating regular lunch tray. Denies further needs.
--- NOTE | 2023-04-04 14:00 | NUR ---
PT AMBULATING IN HALLWAY - 2 LARGE LAPS AROUND MED SURG - TOLERATED WITHOUT DIFFICULTY.
--- NOTE | 2023-04-04 22:59 | NUR ---
PT WALKED 2 TIMES AROUND THE MED SURG UNIT, TOLERATED WELL. BACK TO BED. WOUND VAC AND ONEIL WNL. ICE WATER PROVIDED. NO OTHER NEEDS. CALL LIGHT IN REACH.
--- NOTE | 2023-04-05 05:04 | NUR ---
RECEIVED REPORT FROM MICKI MYLES, ALL QUESTIONS AND CONCERNS WERE ADDRESSED AT THIS TIME; PT UP IN CHAIR, ILEOSTOMY/MIGUELITO EMPTIED, MIDLINE INCISION IS C/D/I, VSS, AFEBRILE, ONEIL CATHETER WITH ADEQUATE URINARY OUTPUT, PT MED/SURG STATUS
[2023-04-05 05:37] LABS: BASOPHILS 0.2 % (0-2); EOSINOPHILS 0.5 % (0-6); HEMATOCRIT 24.7 % (35.0-50.0); HEMOGLOBIN 8.1 g/dL (12.0-18.0); LYMPHOCYTES 6.6 % (24-44); MCH 29.4 (27-36); MCHC 32.7 g/dl (30-36); MCV 89.9 fl (81-99); MONOCYTES 7.7 % (0-12); PLATELET COUNT 121 K/uL (140-440); RBC 2.74 M/ul (4.3-5.7); RDW 14.8 (10.5-15.0)
[2023-04-05 05:46] LABS: BUN/CREATININE RATIO 27.48 (6.0-28.6); CALCIUM 8.5 mg/dL (8.5-10.1); CREATININE, SERUM 1.31 mg/dL (0.70-1.30)
[2023-04-05 06:45] VITALS: BP 108/77
--- NOTE | 2023-04-05 07:44 | NUR ---
REPORT RECEIVED. PATIENT IS SITTING UP IN CHAIR.
--- NOTE | 2023-04-05 08:00 | NUR ---
ASSESSMENT DONE. TALKED WITH PATIENT ABOUT POC FOR THE DAY. INDICATES UNDERSTANDING. WOUND VAC INTACT. OSTOMY BAG INTACT, MIGUELITO INTACT. SITTING UP IN CHAIR READY TO TAKE BREAKFAST.
[2023-04-05 08:16] VITALS: BP 111/76
--- NOTE | 2023-04-05 09:32 | NUR ---
PT SITTING UP IN CHAIR. APPEARED TO BE IN GOOD SPIRITS. I EXERCISED MINISTRY OF PRESENCE PT TALKED OF FAMILY AND HEALTH. CONSENTED TO PRAYER. PRAYED FOR ONGOING HEALING AND AWARENESS OF DIVINE PRESENCE. GAVE ACTIVITY BOOK.
--- NOTE | 2023-04-05 09:53 | NUR ---
SPOKE TO PATIENT ABOUT THE DISCHARGE PLAN.PATIENT PLANS TO GO HOME WHEN DISCHARGED WITH HIS . PATIENT WANTS OUT PATIENT WOUND THERAPY IF POSSIBLE FOR HIS WOUND VAC.PATIENT CAN DO HIS OWN ADLS AND PATIENT CONTIUES TO DRIVE TO HIS OWN MD APPOINTMENTS. PATIENT REFUSES SNF PLACEMENT AND WAS NOT HAPPY WITH THAT PLACEMENT, PATIENT HAS A WALKER AND A CANE,AND CAN GET AROUND THE HOUSE SAFELY.PATIENT'S DEMOGRAPHICS IN THE MEDICAL RECORD ARE CORRECT. PATIENT HAS FRIENDS AND FAMILY THAT ARE WILLING TO HELP.
--- NOTE | 2023-04-05 10:30 | NUR ---
AMBULATED IN HALLWAY. MADE A COUPLE OF LOOPS IN CCU AND MED-SURG. TOLERATED AMBULATION WELL. C/O PAIN 03/01. WILL MEDICATE WITH DILAUDID.
--- NOTE | 2023-04-05 11:09 | NUR ---
SPOKE TO [facility] ABOUT A TO GO BAG FOR THE PATIENT'S WOUND VAC. PATIENT'S INS. IS [employer] AND [facility] DOES NOT USE THIS INSURANCE. RN MATERNITY WILL CONTACT ROD,
--- NOTE | 2023-04-05 11:11 | NUR ---
CONTINUES TO SIT IN CHAIR. DILAUDID 2 MG PO GIVEN FOR C/O PAIN IN ABD AND BACK. ONEIL CATH DC'D. WOUND VAC IS INTACT.
--- NOTE | 2023-04-05 12:27 | PATH ---
[facility] [address], [place] [address] Signed SPECIMEN(S): A PORTION RECTOSIGMOID SPECIMEN(S): B COLOCUTANEOUS FISTULA TRACT W/SKIN SPECIMEN(S): C SEGMENT OF ILEUM SPECIMEN(S): D ILEOSTOMY REMNANT SPECIMEN SOURCE: A. PORTION RECTOSIGMOID B. COLOCUTANEOUS FISTULA TRACT W/SKIN C. SEGMENT OF ILEUM D. 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 FINAL PATHOLOGIC DIAGNOSIS: A. Portion of rectosigmoid: - Segment of benign colon with focal mucosal necrosis and focal pericolonic abscess with patchy acute serositis and foreign body reaction. - Negative for atypical epithelial features. B. Colocutaneous fistula tract with skin: - Benign skin with intradermal granulation tract containing acute and chronic inflammation consistent with clinical cutaneous fistula tract. C. Segment of ileum: - Segment of benign small bowel. - Acute serositis and perienteric inflammation. - Portion of benign colon. D. Ileostomy remnant: - Benign small bowel with focal acute mucosal inflammation and villous attenuation. JVR:[id number] MICROSCOPIC EXAMINATION: Histologic sections of all submitted blocks are examined by light microscopy. These findings, together with the gross examination, support the pathologic diagnosis. GROSS DESCRIPTION: A. The specimen, labeled and designated "Javid, A" and designated on the requisition "portion of rectosigmoid," is received in formalin and consists of the previously opened and fragmented portion of bowel (7.0 x 6.0 x 5.2 cm) with separate portion of red-brown soft tissue (4.2 PATIENT NAME: DAVID HUA PATHOLOGY DATE OF : 57 REPORT #: [id number] PHYSICIAN: CHARLES BURT PCP: Tristan Carrera DO REPORT IS CONFIDENTIAL AND NOT TO BE RELEASED WITHOUT AUTHORIZATION [facility] [address], [place] [address] Signed x 3.0 x 2.0 cm). One possible margin of the portion of bowel is inked blue and the opposite is inked black. The mucosa is jones-pink to red-brown. The separate soft tissue is sectioned to reveal white-jones fibrous cut surfaces. Jewelry Designer sections are submitted. Cassette Summary: (A1) separate soft tissue, junior sales representative sections (A2-A4) portion of bowel B. The specimen, labeled and designated "Javid, B" and designated on the requisition "colocutaneous fistula tract with skin," is received in formalin and consists of an unoriented portion of jones-pink skin and soft tissue (5.0 x 3.0 x 2.5 cm) with disrupted area on the skin surface (0.5 x 0.4 cm). The margin is inked blue, and the specimen is serially sectioned to reveal pink-jones to red-brown cut surfaces with fistula (1.7 cm in length by 0.5 cm in diameter) that communicates with the disruption on the skin surface. Jewelry Designer sections are submitted in cassette B1-B2. C. The specimen, labeled and designated "Javid, C" and designated on the requisition "segment of ileum," is received in formalin and consists of a segment of small bowel (7.0 cm in length and ranging in diameter from 2.7 to 4.4 cm) with one stapled margin (inked blue opposite area of opening (2.0 x 2.5 cm). The serosa is red-brown and roughened. The specimen is opened to reveal pink-jones to green-tinged mucosal folds. Jewelry Designer sections are submitted. Cassette Summary: (C1) margin, shaved, en face (C2) bowel wall (C3) area of opening D. The specimen, labeled and designated "Damien Hua" and designated on the requisition "ileostomy remnant," is received in formalin and consists of an ostomy (4.5 x 4.0 x 3.5 cm) with protruding red-brown mucosa and stapled margin. The nichol are removed, and the margin is inked black. The specimen is opened to reveal jones-pink mucosal folds. Jewelry Designer sections are submitted in cassette D1-D2. AC (under the direct supervision of a pathologist) The Gross Description was prepared using a voice recognition system. The report was reviewed for accuracy; however, sound-alike word errors, addition and/or deletions may occur. If there is any question about this report, please contact Client Services. PATIENT NAME: DAVID HUA PATHOLOGY DATE OF : 57 REPORT #: [id number] PHYSICIAN: CHARLES BURT PCP: Tristan Carrera DO REPORT IS CONFIDENTIAL AND NOT TO BE RELEASED WITHOUT AUTHORIZATION [facility] [address] [place] [id number] Signed PERFORMING LABORATORY: Technical component was performed by [facility], [address] [place] [id number] (CLIA# [id number]). Professional interpretation was performed by [facility], [address] [place] [address], [place] [address] (CLIA#: [id number]). Diagnostician: Manuel Cardoso MD Pathologist Electronically Signed 04/05/2023 Copies: ~ PATIENT NAME: DAVID HUA PATHOLOGY DATE OF : 57 REPORT #: [id number] PHYSICIAN: [employer] [facility] PCP: Tristan Carrera DO REPORT IS CONFIDENTIAL AND NOT TO BE RELEASED WITHOUT AUTHORIZATION
[2023-04-05 12:29] VITALS: BP 101/70
--- NOTE | 2023-04-05 12:35 | NUR ---
PATIENT FINISHED WITH LUNCH, UP TO BR WITH FWW. WOUND VACHOOKED TO FWW. PATIENT UNDERSTANDS HOW TO CALL IF ASSISTANCE IS NEEDED.
--- NOTE | 2023-04-05 13:25 | NUR ---
FAXED ORDERS OVER TO DR. HUSTON OFFICE TO FILL FOR THE I WOUND VAC. ALSO CALLED [employer] LEFT A MESSAGE TO THE I REP. TO RETTURN THE CALL TO CASE MANAGEMENT.
--- NOTE | 2023-04-05 14:50 | NUR ---
ANBULATING. IS STRONG ON LEGS, USING WALKER TO SUPPORT WOUND VAC. REMAIMS IN ROOM 129 HOUSE CONVIENCE PATIENT.
[2023-04-05 16:28] VITALS: BP 101/74
--- NOTE | 2023-04-05 17:20 | NUR ---
TO MED-SURG VIA CHAIR. WOUND VAC INTACT.
--- NOTE | 2023-04-05 17:52 | NUR ---
PT TO MED-SURG VIA CHAIR EVENING MEAL SERVED. CALL LIGHT AND NEEDED ITEMS IN PLACE PT DENIES FURTHER NEEDS
[2023-04-05 18:28] VITALS: BP 114/68
--- NOTE | 2023-04-05 19:26 | NUR ---
REPORT RECEIVED FROM DAY SHIFT RN. PT SITTING IN RECLINER ALERT AND ORIENTED. PRN FOR ABD PAIN ADMIN PER EMAR. NO FURTHER NEEDS. WHITE BOARD UPDATED. CALL LIGHT IN REACH.
--- NOTE | 2023-04-05 19:50 | NUR ---
PATIENT WALKED THE HALLWAY 3 LAPS. V/S AND I&O'S COMPLETED. BLOOD SUGAR CHECK DONE.
[2023-04-05 20:17] VITALS: BP 113/68
--- NOTE | 2023-04-05 21:00 | NUR ---
EVENING ASSESSMENT COMPLETE. SCHEDULED MEDS ADMIN PER EMAR. PT REPORTS ABD PAIN 03/01. PRN FOR PAIN ADMIN PER EMAR. DENIES NAUSEA. DR. PRO CALLED FOR SLEEP MEDS. TELEPHONE ORDERS RECEIVED VERIFIED WITH READBACK METHOD. MIDLINE ABD INCISION WITH WOUNDVAC IN PLACE. BOWEL TONES ACTIVE. ABD SOFT. MIGUELITO WITH SCANT AMOUNT SEROSANG DRAINAGE. ILEOSTOMY WITH LIQUID BROWN STOOL. SCD'S IN PLACE. PT DENIES QUESTIONS OR CONCERNS. PERSONAL BELONGINGS IN REACH. CALL LIGHT IN REACH.
--- NOTE | 2023-04-05 21:57 | NUR ---
CALL LIGHT ANSWERED. URINAL EMPTIED. ADDITIONAL URINAL PROVIDED PER REQUEST. pt SITTING UP IN BED WATCHING MOVIE ON IPAD. NO ADDITIONAL REQUESTS. CALL LIGHT IN REACH.
--- NOTE | 2023-04-05 23:46 | NUR ---
PATIENT CALLED STATING "NEED HELP IN ORGANIZING". PATIENT EMPTIED HIS OSTOMY. EMPTIED URINAL BY THIS CONTOUR BAND SAW OPERATOR VERTICAL AND RECORDED. PATIENT NEEDED HIS HEARING AID MUSIC HISTORIAN PLUG IN. NO OTHER NEEDS AT THIS TIME.
--- NOTE | 2023-04-06 02:35 | NUR ---
CALL LIGHT ANSWERED. URINALS EMPTIED. PT ABLE TO EMPTY OWN OSTOMY OF 200 ML LOOSE STOOL. PRN FOR 6/10 ABD PAIN ADMIN PER EMAR. ASSESSMENT UNCHANGED. PT WEARING HOME CPAP. NO FURTHER NEEDS.
--- NOTE | 2023-04-06 04:03 | NUR ---
PT REPORTS ABD PAIN 03/01. PRN ADMIN FOR PAIN. NO FURTHER NEEDS.
[2023-04-06 06:37] VITALS: BP 106/70
--- NOTE | 2023-04-06 07:23 | NUR ---
PT RESTING EYES CLOSED, CPAP IN PLACE AT TIME OF SHIFT REPORT. LEFT UNDISTURBED. CALL LIGHT, H20, AND NEEDED ITEMS IN REACH.
--- NOTE | 2023-04-06 07:30 | NUR ---
CRAB FISHER ENTERED ROOM TO OBTAIN BLOOD SUGAR. PT IS RESTING IN BED WITH EYES CLOSED. PT WOKE UP DURING GLUCOSE TESTING AND WENT BACK TO SLEEP. CALL LIGHT WITHIN REACH. NO IMMEDIATE NEEDS AT THIS TIME.
--- NOTE | 2023-04-06 09:21 | NUR ---
PT UP TO THE CHAIR FOR MORNING MEAL TOLERATES 100% OF REGULAR DIET DENIES NAUSEA OR DISCOMFORT. CONTINUES TO HAVE BASELINE ABDOMINAL PAIN STATES IT'S NOT BAD ENOUGHT TO NEED MEDS AT THIS TIME, WILL NOTIFY STAFF OF ANY NEED OR INCREASED PAIN. PT STATES HE THINKS HE WILL BE READY FOR DC TOMORROW. NOC RN REPORTS HE AMBULATED THE LAW SEVERAL TIMES ON THAT SHIFT. USING WALKER AT THIS TIME FOR CARRY OF WOUND VAC APPEARS STEADY ON HIS FEET. PT DOING SELF CARES AT THIS TIME INCLUDING ILLEOSTOMY CARE. DENIES NEEDS FROM THIS BUMP GRADER OPERATOR NEEDED ITEMS AT CHAIR SIDE
[2023-04-06 09:30] VITALS: BP 96/66
--- NOTE | 2023-04-06 09:47 | NUR ---
PT SITTING UP IN CHAIR. ALERT AND INTERACTIVE. APPEARED TO BE IN GOOD SPIRITS. I EXERCISED MINISTRY OF PRESENCE PT TALKED OF THEOLOGY AND PHILOSOPHY. GOOD VISIT. CONSENTED TO PRAYER. PRAYED FOR ONGOING HEALING AND CONTINUED BLESSING.
--- NOTE | 2023-04-06 11:06 | NUR ---
PT CONTINUES UP IN THE RECLINER APPEARS TO BE DOZING. NEEDED ITEMS IN REACH
--- NOTE | 2023-04-06 12:43 | NUR ---
PT SITTING IN CHAIR EATING NOON MEAL, IS PRESENT. DR PRO IN TO SEE HIM ALL QUESTIONS ANSWERED
--- NOTE | 2023-04-06 14:03 | NUR ---
Orders for woundvac sent to [facility]. Patient notified orders have been sent. Denies any further needs at this time.
[2023-04-06 14:07] VITALS: BP 95/63
--- NOTE | 2023-04-06 15:22 | NUR ---
ABDOMINAL DRESSING CHANGED PER ORDERS WELL TOLERATED BY PT. HE CONTINIUES TO REST IN BED AT THIS TIME, NEEDED ITEMS IN REACH.
--- NOTE | 2023-04-06 17:25 | NUR ---
Emptied Pt's urinal as needed. No other needs expressed by Pt. Call light left in reach.
--- NOTE | 2023-04-06 17:38 | NUR ---
PT BACK UP TO THE CHAIR AFTER RESTING IN BED FOR AWHILE. EATING EVENING MEAL ENTHUSIASTICALLY. DENIES DISCOMFORTS OR NEEDS OF. WOUND VAC IN PLACE SUCTION WORKING NO DRAINAGE SINCE NEW DRESSING APPLIED.
[2023-04-06 18:38] VITALS: BP 108/76
--- NOTE | 2023-04-06 19:26 | NUR ---
REPORT RECEIVED FROM DAY SHIFT RN. PT LYING IN BED ALERT AND ORIENTED. DENIES NEEDS. WHITE BOARD UPDATED. CALL LIGHT IN REACH.
--- NOTE | 2023-04-06 20:19 | NUR ---
PT AMBULATED HALLWAY X 4 LAPS WITH SBA FWW. pt STATES "I FEEL MUCH BETTER THAN YESTERDAY". BACK IN ROOM TO USE URINAL. CALL LIGHT WITHIN REACH.
--- NOTE | 2023-04-06 20:35 | NUR ---
CALL LIGHT ANSWERED. pt BACK IN BED. WOUND VAC PLUGGED IN. PERSONAL SUPPLIES IN REACH. URINAL EMPTIED, OSTOMY EMPTIED BY pt, 50 MLS GREEN DRAINAGE. NO ADDITIONAL REQUESTS AT THIS TIME.
[2023-04-06 21:19] VITALS: BP 95/65
--- NOTE | 2023-04-06 21:38 | NUR ---
EVENING ASSESSMENT COMPLETE. SCHEDULED MEDS ADMIN PER EMAR. PT REPORTS ABD PAIN 4/10. PRN FOR PAIN ADMIN PER EMAR. PT DENIES NAUSEA. ABD WOUND VAC DRESSING INTACT WITH SCANT AMOUTN SEROUS DRAINAGE. MIGUELITO RLQ WITH SMALL AMOUNT SEROSANG DRAINAGE. ILEOSTOMY WITH SOFT BROWN BM. BOWEL TONES ACTIVE. ABD SOFT. SCD'S IN PLACE. VS AND I&O OBTAINED. PT DENIES QUESTIONS OR CONCERNS. CALL LIGHT IN REACH.
--- NOTE | 2023-04-06 23:50 | NUR ---
PT RESTING IN BED WITH EYES CLOSED. RESPIRATIONS EVEN. CALL LIGHT IN REACH.
--- NOTE | 2023-04-07 00:45 | NUR ---
PT AMB LAW WITH OUTREACH CONSULTANT X 4 LAPS AROUND NURSING UNIT. BACK TO BED, MARIELLE WELL. PRN FOR 4/10 ABD PAIN ADMIN PER EMAR.
--- NOTE | 2023-04-07 04:52 | NUR ---
MEDITECH DOWN TIME. SEE PAPER CHART.
[2023-04-07 05:40] VITALS: BP 98/68
--- NOTE | 2023-04-07 06:29 | NUR ---
PT RESTING WITH EYES CLOSED. AWAKENS EASILY. DENIES PAIN OR NAUSEA AT THIS TIME. ASSESSMENT UNCHANGED. NO NEEDS. CALL LIGHT IN REACH.
--- NOTE | 2023-04-07 07:22 | NUR ---
Report receveid from night RN, all questions answered. Pt lying in bed with eyes closed, respirations even and unlabored. Call light in reach.
--- NOTE | 2023-04-07 07:45 | NUR ---
TRUCK SPOTTER ENTERED ROOM TO OBTAIN BLOOD GLUCOSE. PT STATED HE WOULD LIKE TO GET UP TO THE CHAIR FOR BREAKFAST. TRUCK SPOTTER ASSISTED PT INTO CHAIR WITH SBA AND FWW. PERSONAL SUPPLIES WITHIN REACH. CALL LIGHT WITHIN REACH. NO OTHER NEEDS AT THIS TIME.
--- NOTE | 2023-04-07 08:14 | NUR ---
MORNING ASSESSMENT COMPLETE. PT SITTING UP IN RECLINER, STATES PAIN IS TOLERABLE AT THIS TIME. WOUND VAC TO MIDLINE INCISION TO 120 SUCTION, CDI. MIGUELITO DRAIN WITH SCANT AMOUNT SEROSANG DRAINAGE NOTED. OSTOMY APPLIANCE IN PLACE AND CDI. PT DENIES FURTHER NEEDS AT THIS TIME, EATING BREAKFAST. CALL LIGHT IN REACH.
[2023-04-07 09:23] VITALS: BP 94/61
--- NOTE | 2023-04-07 09:48 | NUR ---
PATIENT UP IN THE LAW WALKING WITH A RESIDENTIAL MORTGAGE UNDERWRITER. PATIENT UPDATED ON WOUND VAC. SO FAR NO RETURN CALL FROM THE REP. FROM [facility]. REGULATORY AFFAIRS COORDINATOR WILL LEAVE A MESSAGE FOR THE REP. TO RETURN MAIL DISTRIBUTION SCHEME EXAMINER CALL.
--- NOTE | 2023-04-07 10:11 | NUR ---
PT REQUESTED TO WALK. INVESTIGATOR WALKED WITH PT FOR FOUR LAPS AROUND THE DEPARTMENT. PT TOLERATED THE WALKING WELL. PT RETURNED TO CHAIR WITH BLE ELEVATED. PT IS REQUESTING PAIN MEDICATION. INVESTIGATOR NOTIFIED NURSE OF PT REQUEST. CALL LIGHT IN REACH
--- NOTE | 2023-04-07 11:01 | NUR ---
SPOKE TO MARIIA FROM [facility] - WOUND VAC REP. MARIIA STATES THAT INSURANCE HAS BEEN APPROVED AND THE WOUND VAC SHOULD BE HERE BY WEDNESDAY.
--- NOTE | 2023-04-07 11:12 | NUR ---
PT C/O 01/30 ABD PAIN, REQUESTED AND GIVEN SECOND TAB OF 2MG DILUADID. PT SITTING UP IN CHAIR AWAKE AND ORIENTED, RESPIRATIONS EVEN AND UNLABORED, 18. PT DENIES FURTHER NEEDS AT THIS TIME. CALL LIGHT IN REACH.
[2023-04-07 13:10] VITALS: BP 97/60
--- NOTE | 2023-04-07 17:04 | NUR ---
PT SITTING UP IN RECLINER. WOUND VAC WITH GOOD SEAL WITH 120 SUCTION. PT STATES PAIN IS WELL CONTROL AND IN NO NEED OF INTERVENTION AT THIS AT THIS TIME. ACTIVE BOWEL TONES. PT DENIES NEEDS AT THIS TIME. CALL LIGHT IN REACH.
[2023-04-07 17:59] VITALS: BP 101/62
[2023-04-07 19:31] VITALS: BP 107/72
--- NOTE | 2023-04-07 19:32 | NUR ---
Pt lisa, sites, valentin and wound WNL. Will continue to monitor.
--- NOTE | 2023-04-07 21:13 | NUR ---
Walked 3 rounds in hallway with walker. Pt passed gas in ostomy during ambulation.
--- NOTE | 2023-04-07 21:29 | NUR ---
Pt asked for another 2 mg dilauded.
--- NOTE | 2023-04-08 02:36 | NUR ---
Pt got up to empty ostomy. Walked to bathroom. Pt pain is controlled at this time.
[2023-04-08 05:51] VITALS: BP 107/67
[2023-04-08 05:57] LABS: HEMATOCRIT 27.2 % (35.0-50.0); HEMOGLOBIN 8.8 g/dL (12.0-18.0); RBC 3.02 M/ul (4.3-5.7)
[2023-04-08 05:59] LABS: MCHC 32.2 g/dl (30-36); PLATELET COUNT 186 K/uL (140-440); RDW 14.5 (10.5-15.0)
[2023-04-08 06:05] LABS: ANION GAP 11.1 (7-21); BUN/CREATININE RATIO 28.34 (6.0-28.6); CALCIUM 8.7 mg/dL (8.5-10.1); CREATININE, SERUM 1.27 mg/dL (0.70-1.30); POTASSIUM 4.1 mmol/L (3.5-5.1)
[2023-04-08 06:14] LABS: BANDS, MANUAL DIFF 5; BASOPHILS, MANUAL DIFF 1; EOSINOPHILS, MANUAL DIFF 1; LYMPHOCYTES, MANUAL DIFF 13; MONOCYTES, MANUAL DIFF 3; NEUTROPHILS, MANUAL DIFF 77
--- NOTE | 2023-04-08 07:15 | NUR ---
RECEIVED REPORT FROM DEAN OF BOYS RN. PT IS SLEEPING WITH EYES CLOSED. RESPIRATIONS EVEN AND REGULAR. CALL LIGHT WITHIN REACH.
--- NOTE | 2023-04-08 07:42 | NUR ---
Spoke with purchasing, wound vac has not yet arrived. They will bring it to the floor when it does.
--- NOTE | 2023-04-08 09:21 | NUR ---
pt needs help per case management. i company laundry worker in room to assist pt, pt stated he had been waiting awhile. pt needs up to br and to be sat in chair for breakfast. pt up to br by self w fww. pt does self care for ostomy. output emptied by this company laundry worker. pt up to chair. food reheated by this company laundry worker. pt urinals in reach. musa light within reach.
--- NOTE | 2023-04-08 09:30 | NUR ---
ADMINISTERED PATIENTS MORNING MEDICATIONS. PT IS SITTING IN CHAIR EATING BREAKFEAST. CALL LIGHT WITHIN REACH. NO NEEDS VOICED BY THE PATIENT. ASSESSMENT COMPLETED. CALL LIGHT WITHIN REACH.
[2023-04-08 10:03] VITALS: BP 107/67
--- NOTE | 2023-04-08 10:10 | NUR ---
PT ON PHONE. UNABLE TO VISIT. SAID SILENT PRAYER FOR ONGOING HEALING AND AWARENESS OF DIVINE PRESENCE.
[2023-04-08] MEDS ORDERED: AMOX TR-K CLV1 EACH PO (10:53)
[2023-04-08] MEDS ORDERED: ACETAMINOPHEN500 MG PO (10:54)
[2023-04-08] MEDS ORDERED: HYDROMORPHONE HC2 MG PO (10:54)
--- NOTE | 2023-04-08 11:34 | NUR ---
SENT CHART TO [facility]ERY AND SCHEDULED DRESSING TO BE CHANGED BY DAY SURGERY STAFF TOMORROW, SATURDAY, APRIL 08, [address] AT 10:[address] PRO NOTIFIED.
--- NOTE | 2023-04-08 13:02 | NUR ---
PT DONE WITH LUNCH. AT BEDSIDE. DISCHARGE INSTRUCTIONS GIVEN AND NO FURTHER NEEDS OR QUESTIONS VOICED. ASSISTED PT TO GET DRESSED AND ALL PERSONAL BELONGINGS GATHERED.
[2023-04-08 13:26] VITALS: BP 108/69
--- NOTE | 2023-04-09 09:59 | DS ---
[facility] [address], [place] [address] Signed ADMISSION DATE: 03/31/2023 DISCHARGE DATE: 04/08/2023 REASON FOR ADMISSION: Plan takedown of ileostomy and resection of colocutaneous fistula. 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 He required at that time extensive and prolonged pressor agent support, laparotomy including subtotal colectomy with end ileostomy and subsequent take back to operation for necrotic small bowel related to his prolonged pressor therapy. Subsequent development of intraabdominal abscesses requiring additional surgery including small bowel resection and prolonged intra abdominal drains. The patient has been recuperating over a number of months and now has optimized nutrition and resolution of septic features. He is now high functioning again. 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 He is admitted at this time to undergo takedown of the ileostomy with resection of portion of residual sigmoid and rectum and excision of the fistulous tract. PERTINENT PHYSICAL EXAMINATION: GENERAL: Showed a well-developed, well-nourished white man. NECK: Trachea is midline. CHEST: Clear. HEART: Regular without murmur. ABDOMEN: Soft and the incision is pliable. The right-sided ileostomy is functioning well and completely viable. 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 His preoperative pre-albumin level is 32.7 on March 03, 2023. Recent metabolic panel was normal. Creatinine was 1.83. White count was 5.8, hematocrit 35.9, and platelets were 183,000. HOSPITAL COURSE: On March 31, 2023, he underwent midline laparotomy, which included preoperative flexible cystoscopy with over the wire placement of 16-Luxembourgish Sellers catheter due to long-standing Electronically Signed By: MICHAEL PRO MD 04/09/23 0959 PATIENT NAME: DAVID POTTS DISCHARGE SUMMARY DATE OF : 57 REPORT #: [id number] PHYSICIAN: MICHAEL PRO MD PCP: Tristan Carrera DO REPORT IS CONFIDENTIAL AND NOT TO BE RELEASED WITHOUT AUTHORIZATION [facility] [address], [place] [address] Signed chronic urethral stricture. He underwent an exploration, extensive lysis of adhesions to the abdominal cavity, partial distal sigmoid colectomy and proctectomy with resection of the colocutaneous fistula. The fistula was found to be related to residual diverticula in the sigmoid remnant. Segmental small bowel resection with subsequent side-to-end coloproctostomy and leak test of the anastomosis as well as application of fibrin glue to the ileoproctostomy was also undertaken. Postoperatively, he was promptly advanced to a liquid diet. On April 02, 2023, approximately 48 hours from operation, he had drainage of dark bloody type fluid from the pelvic drain. Careful monitoring showed this fluid to be more likely dried blood rather than enteric content. Over the next 24 hours he was closely monitored and ultimately had drainage through the incision itself of what appeared to be old blood, which was dark in appearance, not bilious in character in any way. He did have additional fluid requirements and creatinine was slightly elevated. It became clear that exploration was required to distinguis bleeding or enteric drainage proper. On April 03, 2023, postoperative day #3, he underwent midline incision opening, where he was found indeed to have an anastomotic leak on the right side of the ileoproctostomy. The anastomosis otherwise appeared completely viable, but a 5 mm defect in the right lateral ileoproctostomy was clearly the source of his peritoneal contamination. Copious irrigation of the abdomen was performed. Repair of the anastomotic leak and application of fibrin glue, replacement of drain and a proximal diverting loop ileostomy also performed to allow the ileoproctosomy to heal. He was maintained on broad-spectrum antibiotics and had prompt improvement. Within the first postoperative day, he had ileostomy output and he was advanced in his diet ultimately to a regular solid diet. He was transitioned to oral antibiotic Augmentin in lieu of Cipro and Flagyl as he does a have a Flagyl "allergy." By the time of discharge, the pelvic drain showed only clear fluid without sign of adverse drainage output. Good function of the ostomy and a wound VAC that had been applied to the midline incision is functioning well. The wound vac was applied to additionally support the midline fascia and promote rapid granulation. Secondary wound closure with be undertaken once the fascia and subcutaneous tissue is granulating well. It is anticipated that in 4-6 weeks, he will undergo a contrast study to assure that the ileoproctostomy has healed well and there is no leak or other problem. Ultimately, it is anticipated that the loop ileostomy will be taken down and full congregational of gastrointestinal tract undertaken. The wound VAC is in place so as to additionally provide good apposition of the fascial Electronically Signed By: MICHAEL PRO MD 04/09/23 0959 PATIENT NAME: DAVID POTTS DISCHARGE SUMMARY DATE OF : 57 REPORT #: [id number] PHYSICIAN: MICHAEL PRO MD PCP: Tristan Carrera DO REPORT IS CONFIDENTIAL AND NOT TO BE RELEASED WITHOUT AUTHORIZATION [facility] [address], [place] [address] Signed edges and to promote granulation of the wound, particularly in the face of a recent long-standing chronic colocutaneous fistula. Secondary closure of that wound would be anticipated well prior to takedown of the ileostomy itself. He will have wound VAC dressing changes in the Wound Care Clinic, and I will inspect his wound on those occasions, anticipating reasonably prompt closure of the wound at that time. In the meantime, his ostomy does appear to be functioning well and will be cared for as before. Notably, it is in the same site as the previous ileostomy. DISCHARGE MEDICATIONS: Include: 1. Augmentin 500 mg p.o. b.i.d. #12, no refills. 2. Hydromorphone 2 mg tablets 1-2 p.o. q.4 hours as needed for pain #10. 3. Tylenol plain 1000 mg p.o. q.6 hours as needed for pain, #60. He will additionally resume his usual medications of: 1. Allopurinol 300 mg one-half tab p.o. daily. 2. Azelastine 0.5% eyedrops one drop b.i.d. for allergic conjunctivitis as needed. 3. Fluticasone sprays, two sprays nasal as needed for nasal congestion. 4. Simvastatin 20 mg p.o. at bedtime for cholesterol control. 5. Melatonin 3 mg tablets 6 mg p.o. at bedtime for insomnia. 6. Pepcid 20 mg p.o. b.i.d. for reflux type symptoms. 7. Flomax 0.4 mg p.o. daily. 8. Indapamide 1.25 mg p.o. daily. 9. Spironolactone 25 mg p.o. daily. 10. Lidocaine patch as needed transdermal for pain. 11. Multivitamin one p.o. daily. 12. Isosorbide mononitrate 30 mg tabs extended release daily. 13. Olopatadine 0.1% drops each eye b.i.d. for allergies. 14. Amlodipine 5 mg p.o. daily. 15. Sumatriptan 50 mg p.o. oral as needed for headache. 16. Doxycycline 100 mg p.o. b.i.d. as needed for rosacea flare. 17. ciclopirox cream as needed topically for rosacea. 18. Desonide 0.05% cream topically as needed for rosacea. 19. Nitrostat 0.4 mg sublingual as needed for chest pain. 20. Claritin 10 mg p.o. daily as needed for allergies. He will discontinue his apixaban (previously taken for left calf DVT greater than six months ago with no evidence of recurrence). DISCHARGE DIAGNOSES: 1. 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 2. History of subtotal colectomy with end ileostomy in March 2022. Electronically Signed By: MICHAEL PRO MD 04/09/23 0959 PATIENT NAME: DAVID POTTS DISCHARGE SUMMARY DATE OF : 57 REPORT #: [id number] PHYSICIAN: MICHAEL PRO MD PCP: Tristan Carrera DO REPORT IS CONFIDENTIAL AND NOT TO BE RELEASED WITHOUT AUTHORIZATION [address] [address] Signed 3. Segmental small bowel infarction related to extended use postoperative time frame in March 2022, requiring segmental small bowel resection, drain placement and complicated wound care. 4. Distant history of left calf deep venous thrombosis. 5. Hypertension. 6. Glucose intolerance. 7. Episodic elevated uric acid level. 8. Insomnia. 9. Gastroesophageal reflux. FOLLOWUP PLANS: I will see him as previously noted in the Wound Care Clinic and make arrangements for additional interventions as appropriate. MD ARIA Mane/ALEXL /[id number] cc: Tristan Carrera DO Copies: Tristan Carrera DO ~ Electronically Signed By: MCIHAEL PRO MD 04/09/23 0959 PATIENT NAME: DAVID POTTS DISCHARGE SUMMARY DATE OF : 57 REPORT #: [id number] PHYSICIAN: MICHAEL PRO MD PCP: Tristan Carrera DO REPORT IS CONFIDENTIAL AND NOT TO BE RELEASED WITHOUT AUTHORIZATION
== END 2023-04-08 13:23 | disposition home or self-care (01) | DRG 329 ==
LOC: DSVR 03-31 06:02 → MS 03-31 06:02 → CCU 04-03 14:28 → MS 04-05 17:25
PROVIDERS: ADMIT Surgery; ATTEND Surgery
PROC: 0DB80ZZ Excision of Small Intestine, Open Approach (ICD-10-PCS; 2023-03-31)
PROC: 0DBP0ZZ Excision of Rectum, Open Approach (ICD-10-PCS; 2023-03-31)
PROC: 0DBN0ZZ Excision of Sigmoid Colon, Open Approach (ICD-10-PCS; 2023-03-31)
PROC: 0T9B80Z Drainage of Bladder with Drainage Device, Via Natural or Artificial Opening Endoscopic (ICD-10-PCS; 2023-03-31)
PROC: 0DNW0ZZ Release Peritoneum, Open Approach (ICD-10-PCS; principal; 2023-03-31 07:30)
PROC: 0D1B0ZP Bypass Ileum to Rectum, Open Approach (ICD-10-PCS; 2023-03-31 07:30)
PROC: 0D1N0ZP Bypass Sigmoid Colon to Rectum, Open Approach (ICD-10-PCS; 2023-03-31 07:30)
PROC: 0D1B0Z4 Bypass Ileum to Cutaneous, Open Approach (ICD-10-PCS; 2023-04-03)
PROC: 0W9G00Z Drainage of Peritoneal Cavity with Drainage Device, Open Approach (ICD-10-PCS; 2023-04-03)
PROC: 0DBB0ZZ Excision of Ileum, Open Approach (ICD-10-PCS; 2023-04-03)
DX: K63.2 Fistula of intestine (principal); K55.029 Acute infarction of small intestine, extent unspecified; K65.1 Peritoneal abscess; K63.1 Perforation of intestine (nontraumatic); K65.0 Generalized (acute) peritonitis; K59.31 Toxic megacolon; T82.338A Leakage of other vascular grafts, initial encounter; K66.0 Peritoneal adhesions (postprocedural) (postinfection); G47.00 Insomnia, unspecified; K21.9 Gastro-esophageal reflux disease without esophagitis; N35.919 Unspecified urethral stricture, male, unspecified site; E74.39 Other disorders of intestinal carbohydrate absorption; I12.9 Hypertensive chronic kidney disease with stage 1 through stage 4 chronic kidney disease, or unspecified chronic kidney disease; N18.30 Chronic kidney disease, stage 3 unspecified; D63.1 Anemia in chronic kidney disease; J45.909 Unspecified asthma, uncomplicated; G47.30 Sleep apnea, unspecified; Z79.51 Long term (current) use of inhaled steroids; Z88.8 Allergy status to other drugs, medicaments and biological substances; Z86.718 Personal history of other venous thrombosis and embolism; Z90.49 Acquired absence of other specified parts of digestive tract; Z93.2 Ileostomy status; Z79.899 Other long term (current) drug therapy; Z79.01 Long term (current) use of anticoagulants; Z79.4 Long term (current) use of insulin; Z91.040 Latex allergy status
CPT/HCPCS: 00840; 00910; 36415; 71045; 76942; 80048; 85025; 86850; 86900; 86901; 86922; 93005; 93010; 94760; A9270; J0131; J0330; J0690; J0694; J0780; J1100; J1170; J1650; J1815; J1885; J2185; J2300; J2405; J2704; J2795; J3010; J3475; J3490; J7121

== ENCOUNTER 2023-04-16 09:48 | Day surgery (SDC) | payer OTHER, MEDICARE ==
[~2023-04-16] VITALS: Ht 172.7 cm; Wt 75.0 kg
[~2023-04-16 09:48] MED LIST changes: +CICLOPIROX15 GM TOP; +CLARITIN10 MG PO; +COZAAR100 MG PO; +DESONIDE15 GM TOP; +FINACEA50 GM; +HYDROMORPHONE HC2 MG PO; +LOPROX90 GM; +NITROSTAT0.4 MG SL; +PATADAY5 ML OU; +SUMATRIPTAN SUC50 MG PO; +VENTOLIN HFA18 GM INH
[2023-04-16 10:28] VITALS: BP 102/70
[2023-04-16 10:52] LABS: BASOPHILS 1.1 % (0-2); EOSINOPHILS 1.6 % (0-6); HEMATOCRIT 32.7 % (35.0-50.0); HEMOGLOBIN 10.4 g/dL (12.0-18.0); LYMPHOCYTES 9.9 % (24-44); MCH 28.2 (27-36); MCHC 31.8 g/dl (30-36); MCV 88.7 fl (81-99); MONOCYTES 6.4 % (0-12); PLATELET COUNT 329 K/uL (140-440); RBC 3.68 M/ul (4.3-5.7); RDW 14.7 (10.5-15.0)
--- NOTE | 2023-04-16 13:38 | NUR ---
04/16/23 1338 Sheets,Claire 1328 PT ARRIVED TO PACU ON 6L VIA MASK, PT ASLEEP AND ORAL AIRWAY IN PLACE. PT HEAD TURNED TO SIDE AND CHIN LIFT USED TO MAINTAIN AIRWAY. PT REMAINS NONAROUSABLE. 1333 CBG 92.
[2023-04-16 14:22] VITALS: BP 86/61
[2023-04-16 14:57] VITALS: BP 92/61
--- NOTE | 2023-04-16 15:30 | NUR ---
LE 1425-PATIENT BACK TO ROOM FROM PACU ON . RECEIVED REPORT FROM SEMAJ MYLES. PATIENT IS AWAKE. DENIES PAIN. DRESSING WITH MINIMAL DRAINAGE. PATIENT DENIES DIZZY OR LIGHTHEADEDNESS. WILL CONTINUE FLUIDS. CALL LIGHT WITHIN REACH. PATIENT TAKING SIPS OF FLUIDS AND EATING APPLESAUCE.
[2023-04-16 15:35] VITALS: BP 96/66
--- NOTE | 2023-04-16 16:27 | NUR ---
1535-PATINET IS DRESSED. DENIES PAIN AND NAUSEA. DRESSING HAS A SMALL AMOUNT OF RED DRAINAGE. PATIENT DENIES BEING DIZZY OR LIGHTHEADEDNESS. VSS. WILL CALL FOR HIS RIDE.
--- NOTE | 2023-04-16 16:28 | NUR ---
1545-PROVIDED JOHANNA WITH DISCHARGE INSTRUCTIONS. ALL QUESTIONS ANSWERED. PATIENT FEELING WELL. AMBULATES WITH CANE TO WHEELCHAIR. RIDE PROVIDED TO FRONT OF HOSPITAL AND WILL WAIT FOR HER RIDE.
--- NOTE | 2023-04-17 12:35 | OR ---
[facility] [address], [place] [address] Signed DATE OF OPERATION: 04/16/2023 SURGEON: Michael Pro MD PREOPERATIVE DIAGNOSES: 1. A 17 cm midline wound with wound VAC therapy. 2. Recent ileoproctostomy with protective loop ileostomy status post resection of colocutaneous fistula March 31, 2023. POSTOPERATIVE DIAGNOSES: 1. A 17 cm midline wound with wound VAC therapy. 2. Recent ileoproctostomy with protective loop ileostomy status post resection of colocutaneous fistula March 31, 2023. PROCEDURE: Delayed primary closure of midline wound 17 cm (intermediate complexity). INDICATION: This 67-year-old white man has complex medical history, most recently in early March, undergoing ileoproctostomy and ultimately diverting loop ileostomy following resection of the colocutaneous fistula. The patient remains a patient of Dr. Tristan Carrera in [place]. He has had wound VAC therapy to the midline incision, which was left open, particularly given the colocutaneous fistulas tract that was resected. Evaluation in the wound care clinic has shown progressive granulation of the wound, stabilization of the fascia and he is now a candidate for delayed primary closure of the wound. The risk of bleeding, infection, need for other complex wound therapy, and so forth was reviewed with him. He understands and wished to proceed. FINDINGS: Good granulation was noted throughout the wound including the depths of the wound. Reapproximation of the wound edges was undertaken with interrupted 2-0 nylon suture in a vertical mattress configuration. Re-application of the ostomy device was applied as well. Notably, the loop ileostomy is quite viable and functional. DESCRIPTION OF PROCEDURE: The patient was brought to the operating room, placed in the supine position. He is given preoperative antibiotic Ancef. Sequential compression device stockings were used. He was given intravenous sedation. The ostomy appliance was removed as was the wound Electronically Signed By: MICHAEL PRO MD 04/17/23 1235 PATIENT NAME: DAVID POTTS OPERATIVE REPORT DATE OF : 57 REPORT #: [id number] PHYSICIAN: MICHAEL PRO MD PCP: Tristan Carrera DO REPORT IS CONFIDENTIAL AND NOT TO BE RELEASED WITHOUT AUTHORIZATION [facility] [address], [place] [address] Signed VAC dressing. Copious output from the ileostomy was noted at that time. The ileostomy was isolated from the wound. The wound was inspected and found to have extremely good granulation throughout its course including the area where fistula resection was noted. The wound and the surrounding abdominal wall including the ileostomy prepared with Betadine solution. Isolation of the ileostomy was required with an Ioban dressing. Careful inspection of the depths of the wound showed there to be no sign of fascial defect, fistulous opening, or other problem. The subcutaneous tissue is granulating well. The skin edges were reapproximated including all depths of the wound with interrupted 2-0 nylon suture in a vertical mattress configuration. Bacitracin was applied to the wound once it was fully closed and was measured at 17 cm. Acticoat dressing was then applied followed appliance. He is allowed to emerge from sedation, taken to the recovery room in good condition having suffered no complication. Sponge, needle, and instrument counts were reported as correct x3. Michael Pro MD JM/MODL /[id number] cc: Tristan Carrera DO Copies: Tristan Carrera DO ~ Electronically Signed By: MICHAEL PRO MD 04/17/23 1235 PATIENT NAME: DAVID POTTS OPERATIVE REPORT DATE OF : 57 REPORT #: [id number] PHYSICIAN: MICHAEL PRO MD PCP: Tristan Carrera DO REPORT IS CONFIDENTIAL AND NOT TO BE RELEASED WITHOUT AUTHORIZATION
== END 2023-04-16 15:45 | disposition home or self-care (01) ==
LOC: DS 09:48
PROVIDERS: ATTEND Surgery
PROC: 0WQF0ZZ Repair Abdominal Wall, Open Approach (ICD-10-PCS; principal; 2023-04-16 11:45)
DX: Z48.1 Encounter for planned postprocedural wound closure (principal); I10 Essential (primary) hypertension; E74.39 Other disorders of intestinal carbohydrate absorption; G47.00 Insomnia, unspecified; K21.9 Gastro-esophageal reflux disease without esophagitis; Z93.2 Ileostomy status
CPT/HCPCS: 36415; 85025; J0690; J1100; J1885; J2250; J2405; J2704; J2765; J3010; J7121

== ENCOUNTER 2023-05-17 08:30 | Inpatient (IN) | payer OTHER, MEDICARE, BC ==
[~2023-05-17] VITALS: Ht 172.7 cm; Wt 71.0 kg
--- NOTE | ~2023-05-17 | DS ---
[facility] [address], [place] [address] Draft ADMISSION DATE: 05/19/2023 DISCHARGE DATE: 05/24/2023 REASON FOR ADMISSION: This 67-year-old white man with complex past medical history, which in short and all subtotal colectomy for toxic megacolon in March of 2022, subsequent multiple operations, most recently a loop ileostomy and ileoproctostomy. He had a leak at the ileoproctostomy site on definitive takedown of his end ileostomy and a loop ileostomy was reformed and drainage and repair of the ileoproctostomy leakage was undertaken. He appeared to have resolved his problem largely. 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 A few weeks before a recent test of his ileoproctostomy repair by Gastrografin enema. Gastrografin enema did show a small leak that was persistent. He subsequently developed more drainage from the midline incision, which appears to be mucopurulent, but not enteric per se. He has been feeling poorly, though he has had no fever or chills. The patient does not manifest infection in a typical way it is noted; he does have history of diabetes, currently not hyperglycemic. His pre-albumin is normal, it is noted. The patient was feeling lightheaded, weak and not well, and on that basis directly admitted for further evaluation and care. PERTINENT PHYSICAL EXAMINATION: GENERAL: Showed a temperature of 97.5, pulse 79, blood pressure 106/72, O2 saturation on room air is 100%. CHEST: Clear. HEART: Regular. ABDOMEN: Nondistended. There were three punctate holes in a previously closed midline incision (closed by delayed primary closure) with some mucopurulent discharge, but no sign of enteric content or bilious fluid. The right-sided loop ileostomy appears to be functioning well. There is no cellulitis of the abdominal wall. LABORATORY DATA: His presentation white count 6.8, hematocrit 40.5, and platelets 212,000. Liver enzymes showed an alkaline phosphatase 155. Other studies were entirely normal. Creatinine was markedly elevated at 3.73 (baseline usually 1.5 or so). HOSPITAL COURSE: The patient was admitted given fluid resuscitation and oral antibiotic Augmentin. CT scan of the abdomen and pelvis was performed with oral GI contrast and IV contrast PATIENT NAME: DAVID POTTS DISCHARGE SUMMARY DATE OF : 57 REPORT #: [id number] PHYSICIAN: MICHAEL PRO MD PCP: Tristan Carrera DO REPORT IS CONFIDENTIAL AND NOT TO BE RELEASED WITHOUT AUTHORIZATION [facility] [address], [place] [address] Draft sparing rectal contrast. His dehydration, which was part of his clinical presentation was much improved. His creatinine decreased to 2.0 with aggressive fluid resuscitation. A CT scan with GI contrast (Gastrografin) and IV contrast did not demonstrate a clear fluid collection particularly, but there was inflammatory change in the region of the midline incision and the area underneath it. On May 20, 2023, he underwent general anesthesia. An opening of the midline incision for debridement of exuberant granulation of the subcutaneous space. There was a defect in the abdominal wall fascia through which additional drainage was obtained. Cultures and Gram stain were obtained. Initial culture showed rare gram-positive cocci and rare white cells. Final culture showed E coli, which was pansensitive as well as Enterococcus. The patient was maintained on Augmentin antibiotic and appeared to be improving with it. A drain was placed in the intraabdominal cavity down to the level of the anastomosis essentially as well as a wound VAC to the wound itself. The patient said drainage has evolved to a milky appearance of fluid through the drain and scant amount through the wound VAC itself. Due to logistical delays in obtaining a wound VAC device for outpatient use, his dressing change will be modified to plain gauze with keeping the intraabdominal drain in place. Transitioning to a wound VAC device as an outpatient in the next day or two. DISCHARGE MEDICATIONS: Include: 1. Augmentin 500 mg one tablet p.o. t.i.d., #30, refill zero. 2. Sumatriptan 50 mg as needed for headache, #10. 3. Magnesium citrate, potassium citrate tablet set one p.o. b.i.d., #30, refill 3. 4. Allopurinol 150 mg p.o. daily. 5. Azelastine 0.05% eyedrops b.i.d. for allergic conjunctivitis. 6. Fluticasone two sprays as needed for congestion each nostril. 7. Simvastatin 20 mg p.o. at bedtime for hypercholesterolemia. 8. Melatonin 3 mg p.o. at bedtime for insomnia. 9. Famotidine (Pepcid) 20 mg p.o. b.i.d. as needed for reflux. 10. Flomax 0.4 mg p.o. daily. 11. Indapamide 1.25 mg p.o. daily. 12. Spironolactone 25 mg p.o. daily. 13. Multivitamin one p.o. daily. 14. Isosorbide mononitrate 30 mg tablets extended release daily. 15. Amlodipine 5 mg p.o. daily. 16. Albuterol inhaler one inhaled q.4 hours as needed for cough. 17. Continued use of doxycycline 100 mg p.o. b.i.d. for rosacea flare. 18. Nitroglycerin 0.4 mg sublingual as needed for chest pain. PATIENT NAME: DAVID POTTS DISCHARGE SUMMARY DATE OF : 57 REPORT #: [id number] PHYSICIAN: MICHAEL PRO MD PCP: Tristan Carrera DO REPORT IS CONFIDENTIAL AND NOT TO BE RELEASED WITHOUT AUTHORIZATION [facility] [address], [place] [address] Draft 19. Tylenol 500 mg two tablets p.o. q.6 hours as needed for pain. FOLLOW UP: I will connect with him in the Wound Care Clinic during this week. We will set up an appointment for four weeks in the office as well. DISCHARGE DIAGNOSES: 1. Intraabdominal abscess, status post wound exploration, placement of drain, application of wound VAC, and curettage debridement of midline incisional incision. 2. History of subtotal colectomy with multiple subsequent operations, currently with loop ileostomy as protection against small leak at the ileoproctostomy anastomosis. 3. In-house hypomagnesemia and hypokalemia. 4. Migraine headache with flare during course of hospitalization. 5. Dyslipidemia. 6. Allergies, Flagyl and latex. MD ARIA Mane/BRIAN /[id number] cc: Tristan Carrera DO Copies: Tristan Carrera DO ~ PATIENT NAME: DAVID POTTS DISCHARGE SUMMARY DATE OF : 57 REPORT #: [id number] PHYSICIAN: MICHAEL PRO MD PCP: Tristan Carrera DO REPORT IS CONFIDENTIAL AND NOT TO BE RELEASED WITHOUT AUTHORIZATION
--- NOTE | ~2023-05-17 | OR ---
[facility] [address], [place] [address] Draft DATE OF OPERATION: 05/20/2023 SURGEON: Michael Pro MD PREOPERATIVE DIAGNOSES: 1. Persistent wound drainage, midline abdominal incision. 2. History of diverting loop ileostomy and ileoproctostomy. POSTOPERATIVE DIAGNOSIS: Intraabdominal subfascial abscess with granulation tissue of soft tissue. PROCEDURES: 1. Exam under anesthesia. 2. Drainage of intraabdominal abscess (retrofascial plane to pelvis). 3. Debridement of subcutaneous space with curettage. 4. Placement of intraabdominal subfascial drain and application of wound VAC device. ANESTHESIA: General endotracheal, Elliott Hutton CRNA INDICATIONS FOR THE PROCEDURE: This 67-year-old white man was admitted to the hospital most recently on 05/17/2023 with egress of mucopurulent material from midline incision, which had recently been closed following wound VAC therapy. He had recently undergone a retrograde study of the ileorectal anastomosis, which previously month at least ago had some leakage. He has a diverting loop ileostomy proximal to the anastomosis. Egress of purulent fluid is noted, though there is no sign of enteric leak proper (fistula). He has been admitted and undergone fluid resuscitation. Imaging studies including CT scan, is now to undergo opening of the wound drainage, debridement, and whatever else is necessary. He understands the risk of bleeding, infection, and so forth and wished to proceed. FINDINGS: Granulation tissue was noted in the wound that had been reapproximated. There was a defect in the fascial wall and mucopurulent material within it. The space extended inferiorly to the pelvis. This was irrigated and draining cultures and Gram stain obtained. The Gram stain did show rare gram-positive cocci and white cells. A 7 mm flat Raúl drain was placed through the fascial defect into the space in the intraabdominal cavity just below the fascial edge down to the level of the anastomosis and wound VAC device applied over it. PATIENT NAME: DAVID POTTS OPERATIVE REPORT DATE OF : 57 REPORT #: [id number] PHYSICIAN: MICHAEL PRO MD PCP: Tristan Carrera DO REPORT IS CONFIDENTIAL AND NOT TO BE RELEASED WITHOUT AUTHORIZATION [facility] [address], [place] [address] Draft DESCRIPTION OF PROCEDURE: The patient was brought to the operating room, given a general endotracheal anesthetic. Preoperative antibiotic Ancef was given. The patient has been on Augmentin. The ileostomy bag from a loop ileostomy in the right side of the abdomen was removed. The abdomen was prepared with a Betadine solution and draped. An Ioban dressing was applied to contain enteric leakage. The midline incision medial to the level of the ileostomy was incised and mucopurulent granulation tissue was noted, this was debrided with a loop curettage device down to the fascia. The incision was extended cephalad and inferiorly measured at least 6-8 cm in length. Dissection was carried down with electrocautery to the fascia, where a defect was noted in the fascial plane and mucopurulent discharge was noted there. Gram stain and cultures were obtained. A STAT Gram stain confirmed rare gram-positive cocci and rare white cells. Gentle irrigation was undertaken in the intraabdominal cavity in this area and the suction device used to withdraw material. There was no evidence of enteric leakage. No sign of bile leak or other finding. It was deemed most advisable to place a 7 mm flat Raúl drain into the space. An incision was made in the left lateral abdomen and a 7 mm Raúl drain tunneled through this and passed into the depths of the wound inferiorly. The wound VAC device was cut to the appropriate size and applied over the wound and in conjunction with the replacement of the ileostomy device. Suction was maintained on the negative pressure wound therapy device. He was transferred to the recovery room in good condition. MD ARIA Mane/MODL /[id number] cc: Emeli Schwarz MD Copies: EMELI SCHWARZ MD ~ PATIENT NAME: DAVID POTTS OPERATIVE REPORT DATE OF : 57 REPORT #: [id number] PHYSICIAN: MICHAEL PRO MD PCP: Tristan Carrera DO REPORT IS CONFIDENTIAL AND NOT TO BE RELEASED WITHOUT AUTHORIZATION
--- OUTSIDE RECORDS SUMMARY | ~2023-05-17 | XMS | Continuity of Care Document ---
Demographics + + + | Address | [facility] [address] | | | [place] [address] | + + + | Preferred Language | Unknown | + + + | Marital Status | | + + + | Orthodoxy Affiliation | Unknown | + + + | Race | White | + + + | Ethnic Group | Not or | + + + Author + + + | Author | [facility] | + + + | Organization | [facility] | + + + | Address | [address] | | | [place] [address] | + + + | Phone | | + + + Care Team Providers + + + + | Care It Network Engineer Name | Role | Phone | + + + + Unavailable | Unavailable | + + + + Allergies No information. Encounters No information. Functional Status No information. Immunizations No information. Medications No information. Problems + + + + | date | description | facility | + + + + | 2023-03-22 [...] | + + + + | 2023-03-31 06:02 | ANEMIA IN CHRONIC KIDNEY | [facility] | | | DISEASE | | + + + + | 2023-03-31 06:02 | OTHER DISORDERS OF | [facility] | | | INTESTINAL CARBOHYDRATE | | | | ABSORPT | | + + + + | 2023-03-31 06:02 | INSOMNIA, UNSPECIFIED | [facility] | + + + + | 2023-03-31 06:02 | SLEEP APNEA, UNSPECIFIED | [facility] | + + + + | 2023-03-31 06:02 | Essential (primary) | [facility] | | | hypertension | | + + + + | 2023-03-31 06:02 | HYPERTENSIVE CHRONIC | [facility] | | | KIDNEY DISEASE W STG | | | | 1-4/UNSP | | + + + + | 2023-03-31 06:02 | UNSPECIFIED ASTHMA, | [facility] | | | UNCOMPLICATED | | + + + + | 2023-03-31 06:02 | GASTRO-ESOPHAGEAL REFLUX | [facility] | | | DISEASE WITHOUT ESOPHAGIT | | + + + + | 2023-03-31 06:02 | ACUTE INFARCTION OF SMALL | [facility] | | | INTESTINE, EXTENT UNSPEC | | + + + + | 2023-03-31 06:02 | ACUTE INFARCTION OF | [facility] | | | INTESTINE, PART AND | | + + + + | 2023-03-31 06:02 | TOXIC MEGACOLON | [facility] | + + + + | 2023-03-31 06:02 | PERFORATION OF INTESTINE | [facility] | | | (NONTRAUMATIC) | | + + + + | 2023-03-31 06:02 | FISTULA OF INTESTINE | [facility] | + + + + | 2023-03-31 06:02 | GENERALIZED (ACUTE) | [facility] | | | PERITONITIS | | + + + + | 2023-03-31 06:02 | PERITONEAL ABSCESS | [facility] | + + + + | 2023-03-31 06:02 | PERITONEAL ADHESIONS | [facility] | | | (POSTPROCEDURAL) | | | | (POSTINFECTI | | + + + + | 2023-03-31 06:02 | 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, MALE, | | | | UNSPECIFIED | | + + + + | 2023-03-31 06:02 | NAUSEA | [facility] | + + + + | 2023-03-31 06:02 | LEAKAGE OF OTHER VASCULAR | [facility] | | | GRAFTS, INITIAL ENCOUNTE | | + + + + | 2023-03-31 06:02 | DETENTION (CURRENT) USE OF | [facility] | | | ANTICOAGULANTS | | + + + + | 2023-03-31 06:02 | TURN SUPERVISOR (CURRENT) USE OF | [facility] | | | INSULIN | | + + + + | 2023-03-31 06:02 | TURN SUPERVISOR (CURRENT) USE OF | [facility] | | | INHALED STEROIDS | | + + + + | 2023-03-31 06:02 | OTHER TURN SUPERVISOR (CURRENT) | [facility] | | | DRUG THERAPY | | + + + + | 2023-03-31 06:02 | PERSONAL HISTORY OF OTHER | [facility] | | | VENOUS THROMBOSIS AND EM | | + + + + | 2023-03-31 06:02 | ALLERGY STATUS TO OTH | [facility] | | | DRUG/MEDS/BIOL SUBST STATUS | | | | | | + + + + | 2023-03-31 06:02 | ACQUIRED ABSENCE OF OTHER | [facility] | | | SPECIFIED PART | | + + + + | 2023-03-31 06:02 | LATEX ALLERGY STATUS | [facility] | + + + + | 2023-03-31 06:02 | ILEOSTOMY STATUS | [facility] | + + + + | 2023-03-31 07:30 | ACUTE INFARCTION OF | [facility] | | | INTESTINE, PART AND | | + + + + | 2023-03-31 07:30 | ACQUIRED ABSENCE OF OTHER | [facility] | | | SPECIFIED PART | | + + + + | 2023-04-09 10:35 | OTHER DISORDERS OF | [facility] | | | INTESTINAL CARBOHYDRATE | | | | ABSORPT | | + + + + | 2023-04-09 10:35 | HYPERURICEMIA W/O SIGNS OF | [facility] | | | INFLAM ARTHRIT AND TOPH | | + + + + | 2023-04-09 10:35 | INSOMNIA, UNSPECIFIED | [facility] | + + + + | 2023-04-09 10:35 | Essential (primary) | [facility] | | | hypertension | | + + + + | 2023-04-09 10:35 | GASTRO-ESOPHAGEAL REFLUX | [facility] | | | DISEASE WITHOUT ESOPHAGIT | | + + + + | 2023-04-09 10:35 | FOCAL (SEGMENTAL) ACUTE | [facility] | | | INFARCTION OF LARGE INTEST | | + + + + | 2023-04-09 10:35 | ENCOUNTER FOR ATTENTION TO | [facility] | | | ILEOSTOMY | | + + + + | 2023-04-09 10:35 | PERSONAL HISTORY OF OTHER | [facility] | | | VENOUS THROMBOSIS AND EM | | + + + + | 2023-04-09 10:35 | ACQUIRED ABSENCE OF OTHER | [facility] | | | SPECIFIED PARTS OF DIGES | | + + + + | 2023-04-12 12:18 | OTHER DISORDERS OF | [facility] | | | INTESTINAL CARBOHYDRATE | | | | ABSORPT | | + + + + | 2023-04-12 12:18 | INSOMNIA, UNSPECIFIED | [facility] | + + + + | 2023-04-12 12:18 | Essential (primary) | [facility] | | | hypertension | | + + + + | 2023-04-12 12:18 | GASTRO-ESOPHAGEAL REFLUX | [facility] | | | DISEASE WITHOUT ESOPHAGIT | | + + + + | 2023-04-12 12:18 | ENCOUNTER FOR ATTENTION TO | [facility] | | | ILEOSTOMY | | + + + + | 2023-04-12 12:18 | PERSONAL HISTORY OF OTHER | [facility] | | | VENOUS THROMBOSIS AND EM | | + + + + | 2023-04-13 13:24 | ENCOUNTER FOR CHANGE OR | [facility] | | | REMOVAL OF SURGICAL WOUND | | | | DRESSING | | + + + + | 2023-04-16 09:48 | OTHER DISORDERS OF | [facility] | | | INTESTINAL CARBOHYDRATE | | | | ABSORPT | | + + + + | 2023-04-16 09:48 | INSOMNIA, UNSPECIFIED | [facility] | + + + + | 2023-04-16 09:48 | Essential (primary) | [facility] | | | hypertension | | + + + + | 2023-04-16 09:48 | GASTRO-ESOPHAGEAL REFLUX | [facility] | | | DISEASE WITHOUT ESOPHAGIT | | + + + + | 2023-04-16 09:48 | ENCOUNTER FOR PLANNED | [facility] | | | POSTPROCEDURAL WOUND | | | | CLOSURE | | + + + + | 2023-04-16 09:48 | ILEOSTOMY STATUS | [facility] | + + + + | 2023-05-13 10:00 | ILEOSTOMY STATUS | [facility] | + + + + | 2023-05-13 10:05 | ENCNTR FOR SURGICAL AFTCR | [facility] | | | FOLLOWING SURGERY ON THE | | | | DGSTV SYS | | + + + + | 2023-05-13 10:05 | ILEOSTOMY STATUS | [facility] | + + + + Procedures No information. Results/Labs No information. Social History +--------+ + + | date | description | facility | +--------+ + + Vital Signs No information."
[2023-05-17 10:03] VITALS: BP 119/75
[2023-05-17 10:40] LABS: BASOPHILS 0.4 % (0-2); EOSINOPHILS 2.1 % (0-6); HEMATOCRIT 40.5 % (35.0-50.0); HEMOGLOBIN 13.2 g/dL (12.0-18.0); LYMPHOCYTES 9.2 % (24-44); MCH 28.2 (27-36); MCHC 32.7 g/dl (30-36); MCV 86.2 fl (81-99); MONOCYTES 8.2 % (0-12); NEUTROPHILS 80.1 % (39-80); PLATELET COUNT 212 K/uL (140-440); RBC 4.69 M/ul (4.3-5.7); RDW 15.7 (10.5-15.0)
--- NOTE | 2023-05-17 11:17 | NUR ---
DIRECT ADMIT TO THE MEDICAL FLOOR. PATIENT ARRIVED ALERT AND ORIENTED X4, NO ACUTE DISTRESS. PATIENT CHANGED TO GOWN INDEPENDENTLY. VITALS STABLE AT THIS TIME. IV STARTED; BLOOD SENT TO LAB PER ORDER. IV BOLUS STARTED PER PROVIDER ORDER. MID ABDOMEN WOUND SITE IS LEAKING, SMALL OPEN HOLE NOTED. RLQ ILEOSTOMY SITE IS WNL, APPLIANCE INTACT, NO NOTED REDNESS TO SURROUNDING SKIN. PATIENT ORIENTED TO ROOM AND CALL LIGHT. PERSONAL SUPPLIES AND CALL LIGHT WITHIN REACH.
[2023-05-17 11:34] LABS: ALBUMIN 4.4 g/dL (3.4-5.0); ALBUMIN/GLOBULIN RATIO 0.98 (1.1-2.4); ANION GAP 21.3 (7-21); BILIRUBIN, TOTAL 0.7 ng/dL (0.2-1.0); BUN/CREATININE RATIO 30.02 (6.0-28.6); CALCIUM 10.4 mg/dL (8.5-10.1); CREATININE, SERUM 3.73 mg/dL (0.70-1.30); POTASSIUM 4.3 mmol/L (3.5-5.1); PROTEIN, TOTAL 8.9 g/dL (6.4-8.2)
--- NOTE | 2023-05-17 11:38 | NUR ---
ALERT AND ORIENTED IN BED. STATES HE LIVES AT HOME WITH KARLO, . RECENT DISCHARGE FROM FACILITY. STATES HE HAS HAD NO CHANGES SINCE HIS DC. NO WOUND VAC. STATES HE HAS A CANE AND WALKER IF NEEDED. HISTORY OF SLEEP APNEA, HAS OWN CPAP. STATES HE JUST ORDERED OSTOMY SUPPLIES YESTERDAY SO HE SHOULD NOT NEED ANY MORE. STATES HIS BIGGEST CONCERN IS DRESSING SUPPLIES FOR ABDOMINAL WOUND. STATES HE DRIVES HIS SELF. NO FURTHER NEEDS AT THIS TIME NEEDED. NO ISSUES FINANCIALLY OBTAINING MEDS/FOOD ETC.
--- NOTE | 2023-05-17 14:06 | NUR ---
SHORT VISIT NURSING STAFF WAS COMING IN TO GIVE MEDICATION. PRAYED FOR HEALING AND SABIANISM.
--- NOTE | 2023-05-17 14:15 | NUR ---
MED REC COMPLETE
[2023-05-17 14:41] VITALS: BP 106/73
--- NOTE | 2023-05-17 14:43 | NUR ---
pt vitals complete. pt has no needs at this time. respirations unlabored. call light within reach
--- NOTE | 2023-05-17 16:38 | NUR ---
PATIENT HAS DONE WELL TODAY, HAS A GOOD APPETITE, HAS VOIDED SEVERAL TIMES AFTER BOLUS. OSTOMY EMPTIED THIS AFTERNOON, MIDLINE INCISION DRESSING CLEANED AND REDRESSED WITH GUAZE. MIDLINE INCISION APPEARS TO BE LEAKING STOOL. PATIENT TOLERATED WELL, CONTINUES TO DENY ANY PAIN OTHER THAT A MILD HEADACHE.
[2023-05-17 17:45] VITALS: BP 97/73
--- NOTE | 2023-05-17 19:31 | NUR ---
MIDLINE INCISION DRAINAGE CLEANED, NEW DRESSING APPLIED OF 4X4 GUAZE AND TAPE. PATIENT TOLERATED WELL. DR. PRO IN TO SEE PATIENT.
--- NOTE | 2023-05-17 20:10 | NUR ---
REPORT RECIEVED FROM ASHLEY MYLES. BOARD UPDATED. PATIENT DENIES ANY NEEDS AT THIS TIME. WATER REFRESHED. CALL LIGHT WITH IN REACH.
--- NOTE | 2023-05-17 20:30 | NUR ---
PATIENT CALLED TO EMPTY HIS OSTOMY BAG. GLOVES, CONTAINER AND WIPES PROVIDED. EMPTIED URINAL. PATIENT PROVIDED WITH SNACK SANDWICH BOX PER PATIENT'S REQUEST. ICE WATER REFILLED. NO OTHER NEEDS AT THIS TIME.
--- NOTE | 2023-05-17 21:07 | NUR ---
PATIENTS POST OP VITALS TAKEN AND RECORDED. PATIENT REPORTS 8/10 ABD PAIN. PRIMARY RN NOTIFIED. PATIENT TITRATED TO RA. CPOX IN USE READINGS ARE WNL. PATIENT DENIES ANY NAUSEA. SISTER AT BEDSIDE. PATIENT DENIES ANY FURTHER NEEDS. CALL LIGHT IN REACH.
--- NOTE | 2023-05-17 21:10 | NUR ---
PHONE CALL TO MD, TELEPHONE ORDER RECEIVED AND REPEATED BACK FOR ALLOPURINOL DOSAGE CLARIFICATION. EMAR UPDATED.
[2023-05-17 21:38] VITALS: BP 106/54
--- NOTE | 2023-05-17 22:03 | NUR ---
ASSESSMENT AND VITAL SIGNS DONE. SCHEDULED MEDICATION GIVEN PER ORDER. PATIENT DENIES ANY NEED AT THIS TIME. IV FLUSHED WITH 10 ML OF NS, DRESSING WNL. CALL LIGHT WITH IN REACH.
--- NOTE | 2023-05-17 23:55 | NUR ---
PATIENT CALLED TO HAVE HIS DRESSING ON HIS ABDOMIN CHANGED BECAUSE OF VISIBLE DRAINAGE. WHEN IN THE ROOM THE PATIENT ASKED FOR HIS OSTOMY TO BE EMPTIED. ABDOMINAL DRESSING CHANGED. THE OLD DRESSING HAD PURULENT DRAINAGE WITH SOME STOOL IN IT. WOUND CLEANED WITH BATH WIPES AND WOUND CLEANSER. CLEAN FLUFF GAUZE WAS PLACED ON THE WOUND WITH ABD PAD ON TOP AND SIDES TAPED. RT RENUKA PLACED PATIENT ON 2LNC BECAUSE THE PATIENT WEARS A CPAP AT HOME BUT CANT WEAR THE MASK FORM THE HOSTPITAL. CALL LIGHT WITH IN REACH. NO FURTHER NEEDS AT THIS TIME.
[2023-05-18 02:44] VITALS: BP 102/56
--- NOTE | 2023-05-18 02:50 | NUR ---
VITAL SIGNS AND I&O'S DONE. PATIENT DENIES ANY PAIN AND REFUSED SCHEDULED TYLONAL. OSTOMY AND URINAL EMPTIED AND BANDAGE CHECKED, NO NOTICABLE DRAINAGE NOTED. CALL LIGHT WITH IN REACH. NO FURTHER NEEDS AT THIS TIME.
--- NOTE | 2023-05-18 04:30 | NUR ---
PATIENT RESTING IN THE BED WITH EYES CLOSED. RESP AT 16. CALL LIGHT WITHIN REACH.
[2023-05-18 05:14] VITALS: BP 100/59
--- NOTE | 2023-05-18 05:16 | NUR ---
PT WAS SWABBED FOR COVID
--- NOTE | 2023-05-18 05:24 | NUR ---
VITAL SIGNS AND I&O'S DONE. DRESSING CHANGE DONE DUE TO PURULANT DRAINAGE AND STOOL ON THE BANDAGE. WOUND CLEANED WITH WIPES AND WOUND CLEANSER. WOUND DRESSED WITH FLUFF GAUZE, ABD PAD, AND TAPE. CALL LIGHT WITH IN REACH. NOR FURTHER NEEDS AT THIS TIME.
[2023-05-18 05:50] LABS: BASOPHILS 0.4 % (0-2); EOSINOPHILS 1.8 % (0-6); HEMATOCRIT 33.5 % (35.0-50.0); LYMPHOCYTES 11.9 % (24-44); MCH 28.1 (27-36); MCHC 32.9 g/dl (30-36); MCV 85.3 fl (81-99); MONOCYTES 8.8 % (0-12); NEUTROPHILS 77.1 % (39-80); PLATELET COUNT 164 K/uL (140-440); RBC 3.93 M/ul (4.3-5.7); RDW 15.2 (10.5-15.0)
[2023-05-18 06:00] LABS: ANION GAP 13.6 (7-21); BUN/CREATININE RATIO 37.96 (6.0-28.6); CALCIUM 9.3 mg/dL (8.5-10.1); CREATININE, SERUM 2.16 mg/dL (0.70-1.30); POTASSIUM 3.6 mmol/L (3.5-5.1)
--- NOTE | 2023-05-18 07:25 | NUR ---
HANDOFF REPORT RECEIVED FROM SALES SPECIAL AGENT RN.
[2023-05-18 07:57] VITALS: BP 99/57
--- NOTE | 2023-05-18 08:43 | NUR ---
PATIENT AMBULATED INDEPENDENTLY WITH RN AT SIDE TO THE RECLINER TO HAVE BREAKFAST. MORNING MEDICATIONS ADMINISTERED. SPIRINOLACTONE AND ALLOPURINOL WERE HELD DUE TO SYSTOLIC BLOOD PRESSURE LESS THAN 100. PATIENT STATED NO FURTHER NEEDS AT THIS TIME. CALL LIGHT AND PERSONAL BELONGINGS WITHIN REACH.
--- NOTE | 2023-05-18 09:30 | NUR ---
DRESSING CHANGED AND CLEANED WITH WOUND DRESSING CLEANSER. DRIED AND REAPPPLIED GAUZE AND A NEW ABD PAD. NOTIFIED DR. PRO AND HIS PLAN IS TO COME BACK LATER TO SPEAK WITH THE PATIENT.
--- NOTE | 2023-05-18 11:10 | NUR ---
RESPONDED TO CALL LIGHT FOR "IV PUMP BEEPING". LR COMPLETE. CONFIRMED RATE WITH PRIMARY NURSE AND EMAR, 1L LR HUNG AND RUNNING AT 85ML/HR. PT DENIES FURTHER NEEDS. CALL LIGHT IN REACH.
--- NOTE | 2023-05-18 14:25 | NUR ---
Patient up in recliner. Denies needs at this time. Verbalizes plan for possible CT tomorrow if his kidney function improves. Continues to deny needs at this time.
--- NOTE | 2023-05-18 14:43 | NUR ---
Pt in overall good spirits. I exercised ministry of presence as pt shared news from doctor. Needing to receive medical care so short visit.
[2023-05-18 14:59] VITALS: BP 112/57
--- NOTE | 2023-05-18 15:36 | NUR ---
WOUND CULTURES COLLECTED AND SENT TO THE LAB. PATIENT REQUESTED TO TAKE A SHOWER. IV SALINE LOCKED AND BEDDING IS CHANGED.
--- NOTE | 2023-05-18 15:52 | NUR ---
RECEIVED PHONE CALL FROM [facility] IN LAB. GRAM STAIN RESULTS SHOWED "MANY WBC, MODERATE GRAM + COCCI, FEW GRAM - RODS. PRIMARY NURSE NOTIFIED.
--- NOTE | 2023-05-18 15:58 | NUR ---
PATIENT TOOK A SHOWER AND THEN SAT BACK IN THE RECLINER AFTERWARDS WITH A NEW GOWN. THE MIDLINE ABDOMINAL DRESSING IS CHANGED. AROUND THE MIDLINE INCISION IS PINK. CALL LIGHT AND PERSONAL BELONGS WITHIN REACH.
--- NOTE | 2023-05-18 16:54 | NUR ---
RECEIVED PHONE CALL FROM DR. PRO (RETURNING JORGE'S CALL). ADVISED HIM OF THE GRAM STAIN RESULTS FOR THIS PT AND THAT JORGE WANTED TO ASK HIM SOMETHING ABOUT BLOOD SUGARS. DR. PRO STATED THAT THE PT IS ALREADY ON AUGMENTIN AND TO PERFORM BLOOD SUGAR CHECKS QID. PRIMARY RN JORGE ADVISED.
--- NOTE | 2023-05-18 17:40 | NUR ---
PATIENT BLOOD GLUCOSE WAS 105. AUGMENTIN ADMINISTERED. PATIENT IS UP IN THE RECLINER EATING DINNER. REQUESTED TO WALK A LITTLE AFTER EATING. CALL LIGHT IS IN REACH.
[2023-05-18 18:27] VITALS: BP 103/69
--- NOTE | 2023-05-18 18:57 | NUR ---
PATIENT AMBULATED IN THE HALLWAY WITH RN. PATIENT TOLERATED WELL. RETURNED TO THE RECLINER. PATIENT IS SITTING COMFORTABLY WITH CALL LIGHT AND PERSONAL ITEMS WITHIN REACH.
--- NOTE | 2023-05-18 19:50 | NUR ---
REPORT RECIEVED FROM ORLIN MYLES/ JORGE MYLES. BOARD UPDATED. PATIENT WAS IN THE CHAIR WHEN THIS RN CHECKED ON HIM. PATIENT REQUESTED TO GO BACK TO BED. PATIENT ASSISSTED BACK TO BED VIA SBA. IV CHECKED WITH LR @ 85ML/HOUR RUNNING PER ORDER. CALL LIGHT WITH IN REACH. BED IN LOWEST POSTION. NO FURTHER NEEDS AT THIS TIME.
[2023-05-18 20:38] VITALS: BP 105/61
--- NOTE | 2023-05-18 20:40 | NUR ---
ASSESSMENT, VITAL SIGNS, AND I&O'S DONE. BLOOD SUGAR CHECKED. WOUND DRESSING SOILED. PURULENT DRAINAGE WITH A FOUL ODOR COMING FROM THE WOUND. WOUND CLEANED AND DRESSING CHANGED. OSTOMY EMPTIED. CALL LIGHT WITH IN REACH. NO FURTHER NEEDS AT THIS TIME.
--- NOTE | 2023-05-18 22:40 | NUR ---
PATIENT AMBULATED 3 LAPS AROUND MED/SURG, SBA WITH FWW. OSTOMY EMPTIED. NEW BAG OF LR HUNG AND STARTED PER ORDER. Pt BACK TO BED. CALL LIGHT WITHIN REACH. NO FURTER NEEDS AT THIS TIME.
--- NOTE | 2023-05-18 23:55 | NUR ---
PATIENT PLACED ON 2LNC DUE TO HIM HAVING A HOME CPAP MACHINE. PATIENT DOESNT CARE FOR THE MASK OF THE HOSPITAL CPAP MACHINE. WOUND CLEANED AND DRESSING CHANGED. CALL LIGHT WITH IN REACH NO FURTHER NEEDS AT THIS TIME.
--- NOTE | 2023-05-19 02:05 | NUR ---
PATIENT RESTING IN THE BED WITH EYES CLOSED. RESP AT 16. CALL LIGHT WITHIN REACH.
--- NOTE | 2023-05-19 02:36 | NUR ---
CALL LIGHT ANSWERED. EMPTIED URINAL. PROVIDED WITH GLOVES WIPE AND CONTAINER TO PATIENT TO EMPTY OSTOMY BAG. PATIENT REQUESTED TYLENOL. PRIMARY RN NOTIFIED. NO OTHER NEEDS AT THIS TIME.
--- NOTE | 2023-05-19 02:45 | NUR ---
PATIENT REQUESTED TYLONAL. PRN TYLONAL GIVEN PER ORDER. WOUND CLEANED AND DRESSING CHANGED. WATER REFRESHED. CALL LIGHT WITHIN REACH. NO FURTHER NEEDS AT THIS TIME.
--- NOTE | 2023-05-19 05:00 | NUR ---
PATIENT RESTING WITH EYES CLOSED. RESP AT 16. CALL LIGHT WITHIN REACH.
[2023-05-19 06:16] LABS: BASOPHILS 0.4 % (0-2); EOSINOPHILS 3.2 % (0-6); HEMATOCRIT 33.9 % (35.0-50.0); LYMPHOCYTES 15.4 % (24-44); MCH 28.2 (27-36); MCHC 32.6 g/dl (30-36); MCV 86.5 fl (81-99); PLATELET COUNT 155 K/uL (140-440); RBC 3.91 M/ul (4.3-5.7); RDW 15.5 (10.5-15.0)
[2023-05-19 06:35] VITALS: BP 112/74
--- NOTE | 2023-05-19 06:42 | NUR ---
PATIENT OSTOMY CHANGED. WOUND CLEANSED AND DRESSING CHANGED. VITAL SIGNS AND I&0'S DONE. CALL LIGHT WITHIN REACH. WATER REFRESHED.
[2023-05-19 06:43] LABS: ANION GAP 10.6 (7-21); BUN/CREATININE RATIO 32.96 (6.0-28.6); CALCIUM 9.6 mg/dL (8.5-10.1); CREATININE, SERUM 1.79 mg/dL (0.70-1.30); POTASSIUM 3.6 mmol/L (3.5-5.1)
--- NOTE | 2023-05-19 07:20 | NUR ---
RECEIVED REPORT FROM TRAINING LEAD RN.
[2023-05-19 07:57] VITALS: BP 102/60
--- NOTE | 2023-05-19 09:43 | NUR ---
PATIENT GIVEN 15 ML GASTROPHEN MIXED IN 20 OUNCES OF WATER. PATIENT CONSUMED THE FIRST 7.5 ML DOSE IN 10 OUNCES OF WATER PRIOR TO LEAVING THE ROOM. PATIENT STATED NO FURTHER NEEDS AT THIS TIME. CALL LGHT WITHIN REACH.
--- NOTE | 2023-05-19 09:49 | NUR ---
SPOKE TO PATIENT ABOUT THE DISCHARGE PLAN. PATIENT STATES MD IS TAKING HIM TO THE OR TOMORROW. PATIENT STATES HE HAD BEEN DOING WELL AT HOME. PATIENT PLANS AFTER HIS SURGEY AND MEDICALLY STABLE TO RETURN HOME WHERE THE PATIET LIVES WITH HIS .
--- NOTE | 2023-05-19 10:30 | NUR ---
PATIENT REQUESTED ASSISTANCE WITH CHANGING HIS ILEOSTOMY BAG DUE TO IT LEAKING. SHAR PATEL CHANGED THE ILEOSTOMY. NEW ABDOMINAL DRESSING PLACED BY CHAO MYLES. PATIENT COMPLETED GASTROGRAFIN FOR CT SCAN. PATIENT STATED NO FURTHER NEEDS WHEN ASKED. CALL LIGHT AND PERSONAL BELONGINGS WITHIN REACH.
--- NOTE | 2023-05-19 11:30 | NUR ---
PATIENT RETURNED FROM CT APPROXXIMATELY AT 1115. PATIENT WAS PUT BACK ON FLUIDS AND NS FLUID BOLUS 250 ML STARTED. RN WENT TO GET HIM SOME YOGURT AND WHEN RETURNED THE IV SITE HAD INFILTRATED. IV REMOVED WITH CATHETER STILL INTACT. IV SITE IN THE LEFT AC IS NOW BEING USED AND THE FLUID BOLUS IS NOW RUNNING. PATIENTS AT BEDSIDE. PATIENT STATED NO FURTHER NEEDS AT THIS TIME. CALL LIGHT WITHIN REACH.
--- NOTE | 2023-05-19 13:29 | NUR ---
Pt has had a hard morning. Gave prayer shawl. Prayed for patience and perseverence. Short visit.
[2023-05-19 14:07] VITALS: BP 101/66
--- NOTE | 2023-05-19 14:45 | NUR ---
PATIENTS ABDOMINAL WOUND DRESSING CHANGED. SKIN PROTECTANT SPRAY APPLIED TO THE WOUND SURROUNDS TO HELP WITH SKIN BREAKDOWN. PATIENT STATED NO PAIN WHEN ASKED. NO FURTHER NEEDS AT THIS TIME. CALL LIGHT IS WITHIN REACH.
--- NOTE | 2023-05-19 15:45 | NUR ---
PATIENT AMBULATED IN THE HALLWAY FOR 15 MINUTES. WHEN FINISHED THE PATIENT SAT BACK IN THE RECLINER. ASKED PATIENT IF HE NEEDED ANYTHING AND HE STATED NO. CALL LIGHT WITHIN REACH AND BEDSIDE TABLE IN FRONT OF HIM.
[2023-05-19 18:46] VITALS: BP 112/70
--- NOTE | 2023-05-19 18:56 | NUR ---
PATIENT SITTING IN RECLINER. ILEOSTOMY BAG EMPTIED BY SHAR PATEL. VITAL SIGNS AND INTAKE AND OUTPUT VALUES RECORDED. SHAR PATEL CALLED DR. PRO IN REGARDS TO THE PLAN OF CARE TOMORROW. HE STATED THAT HE WOULD BE BACK IN TONIGHT TO INPUT ORDERS. PATIENT STATED NO FURTHER NEEDS AT THIS TIME. CALL LIGHT WITHIN REACH.
--- NOTE | 2023-05-19 19:20 | NUR ---
Patient watching show on his tablet. appears comfortable. Report provided by alex MYLES. Call light within reach.
--- NOTE | 2023-05-19 20:54 | NUR ---
PT UP IN CHAIR. WENT OVER CONSENT, PT SIGNED. DR PRO WAS PRESENT IN ROOM PRIOR TO THIS HOUR, ORDERS PLACED.
--- NOTE | 2023-05-19 21:30 | NUR ---
ACCOMPANIED PATIENT WALK AROUND THE NURSE'S STATION X6. PATIENT WENT TO BED THIS TIME. EMPTIED URINAL. PATIENT EMPTIED OSTOMY BAG. SIDE TABLE AND CALL LIGHT IN EASY REACH.
[2023-05-19 21:45] VITALS: BP 109/75
--- NOTE | 2023-05-19 21:46 | NUR ---
Pa;tient up in recliner for period of time, VSS, +BT's, no nausea, ostomy intact with liquid and form stool noted, mid line incision intact with small amout of purulent drainage, Dressing change done, patient up and ambulating chacon prior to bed with SBA, tolerated well, denies pain, MD in at bedside to talk with patient about POC. Blood sugar 112. call light in reach.
--- NOTE | 2023-05-19 22:16 | NUR ---
PT REQUESTED AND RECEIVED SANDWICH. CURRENTLY IN BED, WATCHING HIS IPAD. GARBAGES IN ROOM EMPTIED, PT EXPRESSED HIS APPRECIATION. NO OTHER NEEDS EXPRESSED AT THIS TIME.
--- NOTE | 2023-05-19 22:50 | NUR ---
CALL LIGHT ANSWERED. PATIENT PROVIDED WITH GLOVES, CONTAINER AND WIPES AND SELF EMPTIED OSTOMY BAG. NO OTHER NEEDS AT THIS TIME.
[2023-05-20] VITALS (7 sets, daily range): BP systolic 94–108; BP diastolic 62–79
--- NOTE | 2023-05-20 00:56 | NUR ---
called in to room by patient, IV pump peeping, Otherwise, patient without complaint, resting with lights out, CPAP on, NPO at this time per orders, call light in reach.
--- NOTE | 2023-05-20 01:58 | NUR ---
Call light on, Assisteed patient with needed supplies to empty ostomy, 200 out. Abdominal dressing changed, gauze with small amt purulent drainage. GI assessment without change, Remains NPO. call light within reach, continues to deny pain.
--- NOTE | 2023-05-20 04:37 | NUR ---
Patient resting with eyes closed, CPAP on, no noted distress, call light within reach.
[2023-05-20 06:01] LABS: ANION GAP 13.9 (7-21); BUN/CREATININE RATIO 28.39 (6.0-28.6); CALCIUM 9.2 mg/dL (8.5-10.1); CREATININE, SERUM 1.62 mg/dL (0.70-1.30); POTASSIUM 3.9 mmol/L (3.5-5.1)
--- NOTE | 2023-05-20 06:24 | NUR ---
PATIENT AWAKE, VSS, CONTINOUS TO DENIE PAIN, DRSG CHANGE DONE, SMALL AMT. PURULENT DRAINAGE, INCISION INTACT, OSTOMY INTACT DRAINING SEMI FORMED STOOL, PATIENT EMPTIED 4 X THIS SHIFT, WANTING TO GET SOME MORE SLEEP, WERING CPAP, LIGHTS OUT AND CALL LIGHT WITHIN REACH.
--- NOTE | 2023-05-20 07:00 | NUR ---
Report received from Charlee MYLES. Patient would like to sleep at this time. Call light in reach, will continue plan of care.
--- NOTE | 2023-05-20 09:15 | NUR ---
Per OR nurse patient will be taken to OR around 1500. OK'd to give PO meds with sip of water. This RN held PO augmentin however d/t risk for stomach upset with being NPO. Assessment complete. Pt on RA, HRR, LSC, bowel tones active. Midline incision noted to have small amount purulent drainage, cleaned with wound cleanser, dressing changed. Urinal emptied. Pt denies needing to empty ostomy at this time. No further needs, call light in reach.
--- NOTE | 2023-05-20 09:44 | NUR ---
Pt continues to display positive attitude of hope and awareness of blessing. Exercised ministry of presence as pt talked of family. Is looking forward to procedure this afternoon and is hopeful of answers and direction toward healing. Prayed for successful procedure and ongoing healing.
--- NOTE | 2023-05-20 12:01 | NUR ---
pt went for a walk around med/surg floor x2. pt had no difficulties. currently back in room in chair . no other cares needed or requested at this time. musa light within reach.
--- NOTE | 2023-05-20 12:59 | NUR ---
Sitting up in his recliner. Denies needs at this time. Anticipates he will likely need equipment or drains after his scheduled surgery. Unsure at this time. Patient has planned procedure this afternoon.
--- NOTE | 2023-05-20 13:35 | NUR ---
Patient reports having a headache that is progressing into a migraine, states takes Imitrex at home, would like to explore options for pain control after surgery. Pt has no further needs at this time
--- NOTE | 2023-05-20 14:25 | NUR ---
patient to OR for procedure
--- NOTE | 2023-05-20 17:20 | NUR ---
Patient arrives to med surg from PACU. Patient on room air, A+O. Lungs clear, HRR. Pt has midline incision covered with wound vac at 120mmhg. Ostomy site WNL. MIGUELITO drain to LLQ, serousanguinous drainage noted. SCDs in place. Pt reports no pain and states migraine is "better after imitrex". VSS. No needs at this time, call light in reach
--- NOTE | 2023-05-20 17:41 | NUR ---
05/20/23 1741 Claire Weston 1633 PT ARRIVED TO PACU ON 6L VIA MASK, RESP EVEN AND UNLABORED WITH JAW THURST USED OFF AND ON TO MAINTAIN AIRWAY. 1640 PT HEAD TURNED TO SIDE AND PT ABLE TO MAINTAIN AIRWAY. PT WOUND VAC REPORTS LEAK AND GERALD RN AT BEDSIDE TO HELP WITH WOUND VAC. 1644 PT WAKES AND O2 MASK REMOVED, PT DENIES PAIN AND NAUSEA. 1655 SURGICAL SITE AND OSTOMY SITE REDRESSED WITH DRAP, DUODERM, WITH BLACK FOAM REMAINING IN PLACE FROM SURGERY. PT DENIES PAIN AND TOLERATED WELL. PLAN OF CARE DISCUSSED. 1700 GOOD SUCTION AND NO ALARMS REPORTED FROM WOUND VAC. 1720 PT RETURNED TO MED-SURG AND REPORT GIVEN. ALL QUESTIONS ANSWERED AND BED PULLED IN. OSTOMY SUPPLIES AT BEDSIDE.
--- NOTE | 2023-05-20 17:55 | NUR ---
Scheduled ABX administered. CBG checked, 78, patient has dinner on tray and begins to eat. Fresh water provided. Hot tea given.
--- NOTE | 2023-05-20 19:25 | NUR ---
Patient without complaint, denies pain, assisted up to stand at bedside to void without difficulty, VSS, Report given by day shift RN. Patient's call light within reach.
--- NOTE | 2023-05-20 20:28 | NUR ---
Patient called to have room temperature turned up to 75 degrees. Took vitals, warm blanket and fresh ice water. Nothing else needed at this time. Call light is within reach.
--- NOTE | 2023-05-20 22:04 | NUR ---
patient seattling in for the night, requested and given chicken broth, states he is passing flatus now, wound vac secure, MIGUELITO intact and compressed draining serosang drainage, VSS, minimal discomfort, medicated with tylenol 1000mg, lights are out and call light within reach.
--- NOTE | 2023-05-21 00:02 | NUR ---
AWAKE BRIEFLY TO EMPTY OSTOMY. NO COMPLAINTS, LIGHT OFF, CALL LIGHT IN REACH, GI STATUS WITHOUT CHANGE,
[2023-05-21 01:58] VITALS: BP 94/62
--- NOTE | 2023-05-21 02:05 | NUR ---
PATIENT SLEEPING BETWEEN CARE, VSS, MIGUELITO INTACT WITH SMALL AMT SEROSANG DRAINAGE, WOUND VAC INTAKE, NO NAUSEA, LIGHTS OUT, CALL LIGHT IN REACH.
--- NOTE | 2023-05-21 04:30 | NUR ---
PATIENT RESTING WITH EYES CLOSED, NO DISTRESS, APPEARS COMFORTABLE, CALL LIGHT IN REACH.
[2023-05-21 05:29] LABS: BASOPHILS 0.2 % (0-2); EOSINOPHILS 2.6 % (0-6); HEMATOCRIT 34.2 % (35.0-50.0); HEMOGLOBIN 11.1 g/dL (12.0-18.0); LYMPHOCYTES 5.2 % (24-44); MCH 28.1 (27-36); MCHC 32.4 g/dl (30-36); MCV 86.9 fl (81-99); MONOCYTES 6.4 % (0-12); NEUTROPHILS 85.6 % (39-80); PLATELET COUNT 149 K/uL (140-440); RBC 3.93 M/ul (4.3-5.7); RDW 15.5 (10.5-15.0)
[2023-05-21 05:41] LABS: BUN/CREATININE RATIO 21.51 (6.0-28.6); CALCIUM 9.3 mg/dL (8.5-10.1); CREATININE, SERUM 1.58 mg/dL (0.70-1.30)
--- NOTE | 2023-05-21 05:45 | NUR ---
PATIENT SLEPT WELL LAST NIGHT, VSS, WOUND VAC INTACT, MIGUELITO INTACT WITH MINIMAL OUTPUT, CPAP ON, OSTOMY REMAINS INTACT, DENIES NAUSEA, BLOOD SUGAR 156 AT BEDTIME, SLEEPING NOW WITH CALL LIGHT IN REACH.
[2023-05-21 06:42] VITALS: BP 102/69
--- NOTE | 2023-05-21 06:47 | NUR ---
patient c/o CORTEZ given 100mg tylenol. VSS, ostomy with large amount of flatus, MIGUELITO output for shift 15ml, Patient wanting to rest more, lights out and call light in reach.
--- NOTE | 2023-05-21 07:10 | NUR ---
REPORT RECEIVED FROM SHAR ROMERO. PT RESTING IN BED WITH EYES CLOSED, RR EVEN AND UNLABORED PTs CPAP IN USE. O2 SATS AT 97%. NO NEEDS IDENTIFIED AT THIS TIME. CALL LIGHT IN REACH.
--- NOTE | 2023-05-21 08:47 | NUR ---
IN TO ADMINISTER MEDICATION, SEE MAR. PT TAKES PO MEDICATION WITH NO ISSUES. PT REPORTING ABD PAIN 5/10 AND STATES "I DO NOT NEED ANYTHING FOR IT." PT ALSO REPORTING HEADACHE 01/30. ASSESSMENT COMPLETE. PT REPORTS PASSING FLATUS AT THIS TIME. ABD TENDER WITH PALPATION. BOWEL TONES ACTIVE. LUNG SOUNDS CLEAR IN RUL AND LORI. DIMINISHED IN RLL AND LLL. DRESSING TO LLQ MIGUELITO DRAIN D/I WITH SCANT AMOUNT OF SHADOWING. WOUND VAC IN PLACE TO MID ABD. WOUND VAC DRESSING C/D/I. COOL CLOTH PROVIDED FOR PT. WATER PROVIDED. PT UP IN RECLINER EATING BREAKFAST. PT DENIES ANY OTHER NEEDS AT THIS TIME. CALL LIGHT IN REACH.
--- NOTE | 2023-05-21 09:00 | NUR ---
Texted Dr. Hernandez as paperwork for wound vac will need to be completed. He called as I was texting and is on the floor to see Wilfrid. Paperwork taken and completed. I called and left a message for rep Nahomy at [facility]. Asked if she was aware of this pt. I received a return phone call. We discussed plan as pts [place] insurance ends tomorrow. Pt will not have wound vac placed until he leaves. I will fax the chart and home wound vac will be placed on Wednesday and billed to Medicare.
--- NOTE | 2023-05-21 10:15 | NUR ---
IN WITH DR. PRO. DR. PRO TO PLACE NEW ORDERS. OSTOMY EMPTIED. PT DENIES ANY OTHER NEEDS AT THIS TIME. CALL LIGHT IN REACH. PT UP IN RECLINER.
[2023-05-21 10:47] VITALS: BP 103/69
--- NOTE | 2023-05-21 11:19 | HP ---
[facility] [address] [place], [place] [address] Signed ADMISSION DATE: 05/17/2023 REASON FOR ADMISSION: Lightheadedness, fever, chills, and dehydration. 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 Most recently a loop ileostomy has been formed in an ileoproctostomy fashion due to a leak at the ileoproctostomy site. He had recovered largely from his operation and anticipating possible takedown of the loop ileostomy. A retrograde (enema) Gastrografin study was undertaken recently May 13, 2023. This showed a small amount of leakage at the anastomotic site and some egress of contrast through the midline incision, which had recently been fully closed. The patient had no fever or chills particularly that were documented, though he felt subjectively warm and has not felt well particularly. I asked him to be directly admitted to the hospital for resuscitation. PHYSICAL EXAMINATION: GENERAL: He looks well and is nontoxic at this time. VITAL SIGNS: At presentation showed temperature 97.5 and a pulse of 79, blood pressure 106/72, room air saturation 100%. NECK: Normal. CHEST: Shows normal respiratory excursion. Pulses regular. ABDOMEN: Nondistended. There are three punctate holes in the previously closed midline incision (delayed secondary closure). There is some mucopurulent discharge, but no sign of enteric contents. The right-sided loop ileostomy appears to be functioning well. There is no sign of cellulitis of the abdominal wall. LABORATORY STUDIES: At presentation showed a white count of 6.8, hematocrit 40.5, platelets 212,000. Chem profile showed sodium 131, potassium 4.3, creatinine 3.73 (elevated even for him), glucose of 132. Liver enzymes, alkaline phosphatase 155, otherwise normal. Serology for COVID has not been received. ASSESSMENT AND PLAN: The patient has clinical signs of dehydration and certainly attested by his elevated creatinine. He has been given fluid resuscitation. I have begun him on Augmentin oral antibiotic for the time being. I will be reviewing further with radiologist the recent contrast study. I showed the patient the images and he understands, as he was told by Electronically Signed By: MICHAEL PRO MD 05/21/23 1119 PATIENT NAME: DAVID POTTS HISTORY AND PHYSICAL DATE OF : 57 REPORT #: [id number] PHYSICIAN: MICHAEL PRO MD PCP: Tristan Carrera DO REPORT IS CONFIDENTIAL AND NOT TO BE RELEASED WITHOUT AUTHORIZATION [facility] [address] [place] [id number] Signed the radiologist the findings as well. I see no evidence of sepsis or need for exploration or opening of the wound. He may require a contrast study to better characterize the situation, particularly if there is in fact an intraperitoneal abscess. It must be remembered that the patient does not manifest infection in a typical way, often having normal white count, and so on. MD ARIA Mane/ALEXL /[id number] Copies: ~ Electronically Signed By: MICHAEL PRO MD 05/21/23 1119 PATIENT NAME: DAVID POTTS HISTORY AND PHYSICAL DATE OF : 57 REPORT #: [id number] PHYSICIAN: MICHAEL PRO MD PCP: Tristan Carrera DO REPORT IS CONFIDENTIAL AND NOT TO BE RELEASED WITHOUT AUTHORIZATION
--- NOTE | 2023-05-21 11:20 | NUR ---
DID PATIENT'S BLOOD SUGAR CHECK THIS MORNING. GOT HIM UP TO SIT IN HIS CHAIR FOR BREAKFAST. BED LINEN CHANGED.
--- NOTE | 2023-05-21 11:20 | OR ---
[facility] [address] [place], [place] [address] Signed DATE OF OPERATION: 05/20/2023 SURGEON: Michael Pro MD PREOPERATIVE DIAGNOSES: 1. Persistent wound drainage midline; history of colocutaneous fistula. 2. History of subtotal colectomy with subsequent multiple operations and ultimately proximal diverting loop ileostomy. POSTOPERATIVE DIAGNOSIS: Subfascial fluid collection consistent with intraabdominal abscess/granulation tissue. PROCEDURES: 1. Exam under anesthesia. 2. Drainage of subfascial intraabdominal abscess with placement of drain through tunneled left-sided abdominal approach. 3. Debridement of subcutaneous space and fascial defect. 4. Application of wound VAC. ANESTHESIA: General endotracheal, Elliott Hutton CRNA INDICATIONS FOR THE PROCEDURE: This 67-year-old white man was admitted most recently on May 17, 2023, with dehydration and a purulent-appearing exudate from his midline wound medial to a loop transverse ileostomy. He had recently undergone a Gastrografin contrast study to assess his side-to-end coloproctostomy anastomosis, which previously had developed a leak from operation approximately four weeks earlier. 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 He has improved in his dehydration and so forth and has undergone imaging study including CT scan, which shows a questionable fluid collection beneath the fascial area. He is not systemically toxic. Granulation is noted in the subcutaneous space in the area in question in the mid abdominal incision medial to the loop ileostomy, which is on the right side of the abdomen. He is now to undergo exam under anesthesia, debridement, drainage as appropriate and application of wound VAC device most likely. He understands the risk of bleeding, infection, and so forth and wished to proceed. FINDINGS: Electronically Signed By: MICHAEL PRO MD 05/21/23 1120 PATIENT NAME: DAVID POTTS OPERATIVE REPORT DATE OF : 57 REPORT #: [id number] PHYSICIAN: MICHAEL PRO MD PCP: Tristan Carrera DO REPORT IS CONFIDENTIAL AND NOT TO BE RELEASED WITHOUT AUTHORIZATION [facility] [address] [place], [place] [address] Signed Exuberant granulation was noted in the subcutaneous tissue. A defect was noted in the fascial layer. The fascia was otherwise quite intact. A fibrinopurulent exudate is noted in the subfascial plane considering this to be essentially an intraabdominal abscess. Gram stain obtained showed rare gram-positive cocci and rare white cells. Irrigation was undertaken in the space through a tunneled approach from the left side of the abdomen. A 7 mm Raúl drain passed into the intraabdominal space in the subfascial area. Additionally, a wound VAC device was applied. DESCRIPTION OF PROCEDURE: The patient was brought to the operating room, given a general anesthetic. Preop antibiotic Ancef was given. The ileostomy appliance was removed from the loop ileostomy on the right side of the abdomen. There was no egress of enteric fluid. The midline wound had ablation tissue. The abdomen was prepared with a Betadine solution and patted dry Ioban applied so as to control ileostomy egress if necessary. An incision was made in the granulation tissue. The midline incision and dissection carried through the dermis into the subcutaneous space, where exuberant granulation tissue was noted. This was debrided with loop curettage device. Careful dissection in the depths showed a fascial defect, which extended inferiorly. Some previously placed PDS suture was removed. The fascia other than the defect area was quite intact. Probing of the intraabdominal space in the subfascial plane was undertaken, was directed inferiorly. Gentle dissection with the suction device was used and cultures were obtained from the peritoneal fluid, subsequently found to have rare gram-positive cocci and rare white cells. Irrigation was undertaken fully. Additional debridement was undertaken of the subcutaneous space. Through the left lateral stab incision, a 7 mm flat Raúl drain was passed subcutaneously and then down into the properitoneal space in the intraabdominal area. It was secured to the skin with nylon suture. A small piece of wound VAC foam was then insinuated into the open portion of the wound and the adhesive applied. The wound VAC device was applied to 120 mmHg, which showed a good seal. He was then extubated and transferred to the recovery room in good condition, having suffered no known complications. Blood loss was less than 50 mL. Sponge, needle, and instrument counts were reported as correct. MD ARIA Mane/MODL /[id number] Electronically Signed By: MICHAEL PRO MD 05/21/23 1120 PATIENT NAME: DAVID POTTS OPERATIVE REPORT DATE OF : 57 REPORT #: [id number] PHYSICIAN: MICHAEL PRO MD PCP: Tristan Carrera DO REPORT IS CONFIDENTIAL AND NOT TO BE RELEASED WITHOUT AUTHORIZATION [facility] [address] [place] [place] [address] Signed cc: Tristan Carrera DO Copies: Tristan Carrera DO ~ Electronically Signed By: MICHAEL PRO MD 05/21/23 1120 PATIENT NAME: DAVID POTTS OPERATIVE REPORT DATE OF : 57 REPORT #: [id number] PHYSICIAN: MICHAEL PRO MD PCP: Tristan Carrera DO REPORT IS CONFIDENTIAL AND NOT TO BE RELEASED WITHOUT AUTHORIZATION
--- NOTE | 2023-05-21 11:22 | NUR ---
PATIENT SITTING UP IN HIS CHAIR. GOT HIM A CUP OF HOT TEA.
--- NOTE | 2023-05-21 11:43 | NUR ---
IN TO ADMINISTER MEDICATIONS, SEE MAR. PT REPORTING HEADACHE 03/01. PT VOIDS IN URINAL, URINAL EMPTIED. PT IN RECLINER. PT DENIES ANY OTHER NEEDS AT THIS TIME. CALL LIGHT IN REACH.
--- NOTE | 2023-05-21 12:20 | NUR ---
IN TO ROUND ON PT. PT UP IN RECLINER. PT REPORTING HEADACHE 10/02. WATER PROVIDED. LUNCH TRAY ARRIVES. PT DENIES ANY OTHER NEEDS AT THIS TIME. CALL LIGHT IN REACH.
[2023-05-21 13:24] VITALS: BP 113/67
--- NOTE | 2023-05-21 13:52 | NUR ---
IN TO ROUND ON PT. PT UP IN RECLINER. PT DENIES ANY NEEDS AT THIS TIME. CALL LIGHT IN REACH. IN ROOM.
--- NOTE | 2023-05-21 14:00 | NUR ---
Spoke with Wilfrid and he was able to complete paperwork for [facility] wound vac. Paperwork was faxed to Nahomy at [facility].
--- NOTE | 2023-05-21 15:30 | NUR ---
NOTIFIED BY SHAR ELLIS THAT SHAR ELLIS AND PT AMBULATED LAW X4 LAPS.
--- NOTE | 2023-05-21 17:16 | NUR ---
IN TO ROUND ON PT. PT UP IN RECLINER. PT REPORTING HEADACHE 4/10 AND ABD PAIN 5/10. PRN MEDICATIONS ADMINISTERED, SEE OCT. SCHEDULED MEDICATION ADMINISTERED, SEE OCT. PT TAKES PO MEDICATIONS WITH NO ISSUES. ASSESSMENT COMPLETE. LUNG SOUNDS CLEAR. BOWEL TONES ACTIVE. ABD TENDERNESS WITH PALPATION. PT REPORTS PASSING FLATUS. DRESSING TO LLQ MIGUELITO DRAIN SCANT AMOUNT OF DRAINAGE NOTED. MIDLINE WOUND VAC DRESSING C/D/I. DINNER TRAY ARRIVES. WATER PROVIDED. PT DENIES ANY OTHER NEEDS AT THIS TIME. CALL LIGHT IN REACH.
--- NOTE | 2023-05-21 18:30 | NUR ---
IN TO ROUND ON PT. PT UP IN RECLINER. SHAR COLLINS AND SHAR FLYNN IN ROOM OBTAINING VITALS AND ASSISTING PT WITH OSTOMY. PT REPORTING HEADACHE PAIN 3/10 AND ABD PAIN 2/10. PT DENIES ANY NEEDS AT THIS TIME FROM THIS RN. CALL LIGHT IN REACH. SHAR COLLINS AND SHAR FLYNN STILL IN ROOM.
[2023-05-21 18:44] VITALS: BP 112/73
--- NOTE | 2023-05-21 19:00 | NUR ---
OSTOMY EMPTIED BY PT, RECORDED OUTPUT. PT INDEPENDENTLY USED URINAL. EMPTIED MIGUELITO DRAIN. WOUND VAC SHOWED NO DRAINAGE AT THIS TIME, GREEN LIGHT INDICATOR ON. VSS. TEMPERATURE SLIGHTLY HIGHER THEN USUAL AT 99.1, RETAKEN AND WAS 99.0. PT WAS EDUCATED ON AND USED I.S. DEVICE BETWEEN TEMPERATURES. PT GOT I.S. DEVICE TO 2500 X5. PT UP TO WALK 3 LAPS AROUND UNIT USING FWW, STANDBY ASSIST. PT BACK TO CHAIR. CALL LIGHT WITHIN REACH. PT STATES NO FURTHER NEEDS AT THIS TIME. PRIMARY RN UPDATED.
--- NOTE | 2023-05-21 20:18 | NUR ---
PATIENT SITTING IN CHAIR READING NEWSPAPER, NO COMPLAINTS, UP AMBULATING LAW AT START OF SHIFT, GAIT STEADY, REPORT GIVEN BY DAY SHIFT RN, WOUND VAC SECURE, ASSISTED PATIENT WITH EMPTYING OSTOMY, MIGUELITO INTACT AND SECURED. CALL LIGHT IN REACH.
[2023-05-21 21:51] VITALS: BP 110/64
--- NOTE | 2023-05-21 22:45 | NUR ---
pATIENT UP WITH SBA AND AMBULATED WITH FWW 5 LAPS IN LAW AND TOLERATED WELL. SETTLED INTO BED NOW, CPAP ON , DENIES PAIN, LIGHTS OUT AND CALL LIGHT IN REACH.
[2023-05-22 01:36] VITALS: BP 98/70
--- NOTE | 2023-05-22 01:38 | NUR ---
PATIENT CALLED, ASSISTED WITH EMPTYING OSTOMY, VSS, CONTINUES TO DENY PAIN, GI ASSESSMENT WITHOUT CHANGE, LIGHTS TURNED DOWN AND CALL LIGHT WITHIN REACH.
--- NOTE | 2023-05-22 05:31 | NUR ---
PATIENT SLEPT BETWEEN CARE, VSS, AMBULATED PRIOR TO BED LAST NIGHT, OSTOMY PUTTING OUT MUSHY STOOL WHICH PATIENT EMPTIED 3 TIMES DURING THE NIGHT TOTALING 1300ML, WOUND VAC INTACT, PATIENT DENIES PAIN, MIGUELITO INTACT WITH MINIMAL DRAINAGE, WEARING CPAP DURING THE NIGHT, RESTING NOW WITH EYES CLOSED, NO DISTRESS, CALL LIGHT WITHIN REACH.
[2023-05-22 06:09] VITALS: BP 103/73
--- NOTE | 2023-05-22 07:05 | NUR ---
REPORT RECEIVED FROM SHAR ROMERO. PT RESTING IN BED SEMI-FOWLERS WITH CPAP IN PLACE. EYES CLOSED, RR EVEN AND UNLBAORED. NO NEEDS IDENTIFIED AT THIS TIME. CALL LIGHT IN REACH.
--- NOTE | 2023-05-22 08:04 | NUR ---
IN TO ADMINISTER MEDICATIONS, SEE MAR. PT TAKES PO MEDICATIONS WITH NO ISSUES. PT REPORTING HEADACHE 2/10. ABD PAIN 0/10. PT DENIES PRN MEDICATION WHEN OFFERED AT THIS TIME. ASSESSMENT COMPLETE. LUNG SOUNDS CLEAR. BOWEL TONES ACTIVE. ABD TEDNER WITH PALPATION. MIGUELITO DRESSING TO LLQ SCANT AMOUNT OF SHADOWING NOTED. MIDLINE WOUND VAC IN PLACE, DRESSING C/D/I. MIGUELITO DRAINAGE DARK/CARLA COLOR DRAINAGE NOTED. PT DENIES NUMBNESS OR TINGLING IN HANDS OR FEET. PT REQUESTING TO GET INTO RECLINER. SBA WITH FWW FROM BED TO RECLINER. PT RECLINER TURNED SO PT CAN LOOK OUT WINDOW PER PT REQUEST. WATER PROVIDED. PT DENEIS ANY OTHER NEEDS AT THIS TIME. CALL LIGHT IN REACH.
[2023-05-22 10:18] VITALS: BP 96/62
--- NOTE | 2023-05-22 10:42 | NUR ---
IN TO ROUND ON PT. PT UP IN RECLINER. PT REPORTING HEADACHE IS "BETTER, BUT STILL THERE." PT DENIES PRN PAIN MEDICATIN FOR HEADACHE WHEN OFFERED. PT DENIES PAIN TO ABD. ON COUCH. PT DENIES ANY OTHER NEEDS AT THIS TIME. CALL LIGHT IN REACH.
--- NOTE | 2023-05-22 12:06 | NUR ---
PT AMBULATING WITH SYLVIA SMITH.
--- NOTE | 2023-05-22 12:22 | NUR ---
IN TO ADMINISTER MEDICAITON, SEE MAR. PT TAKES PO MEDICATIONS WITH NO ISSUES. PT REPORTING ABD PAIN 10/30. PRN TYLENOL ADMINISTERED, SEE OCT. LUNCH TRAY ARRIVES. PT DENIES ANY NEEDS AT THIS TIME. CALL LIGHT IN REACH.
[2023-05-22 13:02] VITALS: BP 102/68
--- NOTE | 2023-05-22 14:02 | NUR ---
IN TO ROUND ON PT. PT UP IN RECLINER. PT REPORTING PAIN 2/10 IN ABD. PT STATES "IT IS PRETTY GOOD RIGHT NOW." PT DENIES ANY NEEDS AT THIS TIME. CALL LIGHT IN REACH.
--- NOTE | 2023-05-22 15:11 | NUR ---
PT AMBULATING LAW WITH SYLVIA SMITH.
--- NOTE | 2023-05-22 16:12 | NUR ---
IN TO ROUMD ON PT. PT UP IN RECLINER AND RESPONDS WHEN ADDRESSED. ASSESSMENT COMPLETE. PT REPORTS PAIN 0/10. BOWEL TONES ACTIVE. PT REPORTS TENDERNESS WITH LLQ WITH ABD PALPATION. MIGUELITO DRESSING D/I WITH SCANT AMOUNT OF SHADOWING NOTED. MIGUELITO FLUID NOTED TO BE MILKY/SEROSANGUENOUS DRAINAGE. MIDLINE WOUND VAC IN PLACE, DRESSING C/D/I. PT DENIES ANY NEEDS AT THIS TIME. CALL LIGHT IN REACH. PT UP IN RECLINER.
--- NOTE | 2023-05-22 17:06 | NUR ---
IN TO ADMINISTER MEDICATION, SEE MAR. PT TAKES PO MEDICAITON WITH NO ISSUES. PT UP IN RECLINER. PT DENIES ANY OTHER NEEDS AT THIS TIME. CALL LIGHT IN REACH.
--- NOTE | 2023-05-22 17:57 | NUR ---
THIS RN CALLED DR. AKERS REGARDING PTs MIGUELITO ELVA OUTPUT CHANGE IN COLOR. MD AWARE. NO NEW ORDERS AT THIS TME.
[2023-05-22 18:16] VITALS: BP 107/65
--- NOTE | 2023-05-22 19:00 | NUR ---
shift report received from dayshift marianna carter at bedside, pt awake and resting in chair. on ra, rr even and unlabored. no distress noted. wound vac to midline at 120mmhg suction. valentin drain to left abdomen and jones milky colored appearance, per shift report md aware. will continue to monitor. ostomy bag to rlq emptied by pt, 50mls output. pt denies nausea. iv site wnl, saline locked. call light in reach. board updated.
--- NOTE | 2023-05-22 19:08 | NUR ---
BEFORE LUNCH TODAY PATIENT AND I WALKED FIVE LAPS AROUND MED SURG. THAN AROUND 1500 PATIENT AND I WALKED ANOTHER SIX LAPS AROUND MED SURG. PATIENT GET UP TO THE BATHROOM AND EMPTIES HIS OSTOMY BACK AND USES THE URNINAL I WAS ALSO IN THE ROOM WHEN HE WANTED TO GET UP. ALSO WHEN WE WALKED HE USED HIS WALKER.
[2023-05-22 20:33] VITALS: BP 112/67
--- NOTE | 2023-05-22 21:09 | NUR ---
AMBULATED IN THE LAW WITH PATIENT FOR X6 LAPS. PATIENT IN TO BR AND COMPLETED OSTOMY CARE INDEPENDENTLY. PATIENT IS NOW RESTING IN BED. PATIENT DENIES ANY FURTHER NEEDS. CALL LIGHT AND BELONGINGS ARE WITH IN REACH.
--- NOTE | 2023-05-22 23:05 | NUR ---
call light answered, pt emptied ostomy, green in color. pt completed ostomy care on his own, call light in reach. no additional needs or concerns verbalized.weigher and charger asif also in room and visualized abdomin including wound vac/valentin output color (jones/khaki)- no change since start of shift.
--- NOTE | 2023-05-23 00:06 | NUR ---
ROUNDED ON pt, pt AWAKE AND PREPARING TO GO TO BED, NO CAHNGE TO WOUND VAC OR MIGUELITO DRAIN COMPARED TO START OF SHIFT. ANOTHER 75MLS EMPTIED FROM OSTOMY SITE, pt EMPTIED INDEPENDENTLY. HOME CPAP MASK IN PLACE, NO ADDITIONAL NEEDS OR CONCERNS VERBALZIED. CALL LIGHT IN REACH. URINAL ALSO EMPTIED FOR 200 MLS. CALL LIGHT IN REACH.
--- NOTE | 2023-05-23 00:51 | NUR ---
REPORT GIVEN TO SHAR ZHU. AUDRA MYLES TO TAKE OVER pt CARE AT THIS TIME.
--- NOTE | 2023-05-23 01:21 | NUR ---
RECEIVED REPORT. PATIENT IS RESTING IN BED WITH EYES CLSOED, RR 16. PATIENT IS WEARING HOME CPAP. CALL LIGHT IN REACH.
--- NOTE | 2023-05-23 02:21 | NUR ---
PATIENT IS RESTING IN BED WITH EYES CLOSED WEARINF HOME CPAP. PATIENTS RR 16. CALL LIGHT IN REACH.
--- NOTE | 2023-05-23 04:02 | NUR ---
PATIENT ASSISTED TO THE BR A SBA. PATIENT EMPTIED OSTOMY WITH NO ASSISTANCE. PATIENTS URINAL EMPTIED. PATIENT IS RESTING IN BED. WOUND VAC IN PLACE. PATIENT DENIES ANY FURTHER NEEDS. CALL LIGHT IN REACH.
[2023-05-23 05:36] LABS: BASOPHILS 0.4 % (0-2); EOSINOPHILS 3.3 % (0-6); HEMATOCRIT 33.3 % (35.0-50.0); HEMOGLOBIN 10.6 g/dL (12.0-18.0); LYMPHOCYTES 8.1 % (24-44); MCH 27.9 (27-36); MCHC 31.9 g/dl (30-36); MCV 87.3 fl (81-99); MONOCYTES 7.2 % (0-12); PLATELET COUNT 160 K/uL (140-440); RBC 3.81 M/ul (4.3-5.7); RDW 15.5 (10.5-15.0)
[2023-05-23 05:38] VITALS: BP 98/62
[2023-05-23 05:58] LABS: ANION GAP 14.3 (7-21); BUN/CREATININE RATIO 20.83 (6.0-28.6); CALCIUM 9.3 mg/dL (8.5-10.1); CREATININE, SERUM 1.68 mg/dL (0.70-1.30); PHOSPHORUS, INORGANIC 2.4 mg/dL (2.5-4.9); POTASSIUM 4.3 mmol/L (3.5-5.1)
--- NOTE | 2023-05-23 06:18 | NUR ---
PATIENTS RESTING IN BED WITH EYES CLOSED, RR 16. PATIENT IS WEARING HOME CPAP. PATIENTS CALL LIGHT AND BELINGINGS ARE WITHIN REACH.
--- NOTE | 2023-05-23 07:39 | NUR ---
PT RESTING SOUNDLY AT TIME OF SHIFT REPORT. CPAP IN PLACE BREATHING EVEN AND UNLABORED. CALL LIGHT IN REACH. PT LEFT UNDISTURBED
--- NOTE | 2023-05-23 08:50 | NUR ---
PT UP TOP THE CHAIR FOR MORNING MEAL. DENIES PAIN OR NEEDS OF. FRESH H2O PROVIDED CALL LIGHT IN REACH
[2023-05-23 09:54] VITALS: BP 98/64
--- NOTE | 2023-05-23 10:15 | NUR ---
PT UP IN THE ROOM INDEPENDANTLY DOING SELF CARE. DENIES PAIN OR DISCOMFORTS. RETURNS TO RESTING IN CHAIR IV MEDS INFUSING AT THIS TIME
--- NOTE | 2023-05-23 11:56 | NUR ---
PT AMBULATES 6 LAPS IN THE LAW WELL TOLERATED. DOES SELF CARE AND RETURNS TO SITTING UP IN THE RECLINER. CALL LIGHT AND NEEDED ITEMS IN REACH, DENIES REQUESTS
--- NOTE | 2023-05-23 13:29 | NUR ---
PT TOLERATES 100% OF NOON MEAL. SITTING UP IN THE CHAIR WATCHING A MOVIE. IS PRESENT IN THE ROOM
[2023-05-23 15:03] VITALS: BP 102/67
--- NOTE | 2023-05-23 15:51 | NUR ---
PT UP IN THE CHAIR VISITING WITH
[2023-05-23 17:42] VITALS: BP 107/67
--- NOTE | 2023-05-23 17:59 | NUR ---
PT CONTINUES UP IN THE CHAIR EATS 100% OF ALL MEALS THIS SHIFT DENIES DISCOMFORT OR NEEDS.
--- NOTE | 2023-05-23 19:33 | NUR ---
RECEIVED REPORT FROM DAY SHIFT RN. PATIENT IS RESTING IN RECLINER. PATIENT DENIES ANY NEEDS. CALL LIGHT IN REACH.
[2023-05-23 21:47] VITALS: BP 127/72
--- NOTE | 2023-05-23 22:00 | NUR ---
PATIENTS VITALS TAKEN AND RECORDED. PATIENT COMPLETED OWN OSTOMY CARE. PATIENTS URINAL EMPTIED. INTAKE AND OUTPUT RECORDED. PATIENTS BS CHECKED PER ORDER AND IS WNL. PATIENT DENIES ANY PAIN OR NAUSEA. PATIENTS ASSEMENT COMPLETED. W[place] DRESSING IN PLACE ON MID LOW ABD, DRESSSING INTACT, AND WOUND VAC FUNCTIONING AT 120. PATIENT HAS MIGUELITO IN PLACE ON LEFT LOW ABD THAT HAS [place] DRAINAGE NOTED. PATIENT HAS OSTOMY ON RIGHT SIDE ABD. PATIENT PROVIDED FRESH ICE WATER. PATIENT UP AND AMBULATING IN HALLWAY W/FWW AND COMPLETED 8 LAPS. PATIENT IS NOW IN BED RESTING. PATIENTS BELONGINGS AND CALL LIGHT IN REACH.
--- NOTE | 2023-05-24 00:30 | NUR ---
PATIENT IS RESTING IN BED WITH EYES CLOSED, RR 15. CALL LIGHT IN REACH. PATIENT IS WEARING HOME CPAP. CALL LIGHT IN REACH.
--- NOTE | 2023-05-24 02:36 | NUR ---
PATIENT IS RESTING IN BED WEARING HOME CPAP WITH EYES CLOSED, RR 16. CALL LIGHT IN REACH.
--- NOTE | 2023-05-24 04:10 | NUR ---
PATIENT IS RESTING IN BED WITH EYES CLOSED WEARING HOME CPAP. PATIENTS RR 16. CALL LIGHT IN REACH.
[2023-05-24 04:41] VITALS: BP 105/71
--- NOTE | 2023-05-24 05:01 | NUR ---
PATIENT EMPTIED OSTOMY. THIS RN EMPTIED MIGUELITO DRAIN AND URINAL. PATIENTS VITALS TAKEN AND RECORDED. INTAKE AND OUTPUT RECORDED. PATIENT DENIES ANY PAIN OR NAUSEA. PATIENTS WOUND VAC DRESSING INTACT AND IS FUNCTIONING AT 120. PATIENT DENIES ANY FURTHER NEEDS. PATIENT IS RESTING IN BED WEARING HOME CPAP. CALL LIGHT AND BELONGINGS ARE WITHIN REACH.
[2023-05-24 05:33] LABS: BASOPHILS 0.5 % (0-2); EOSINOPHILS 4.2 % (0-6); HEMATOCRIT 32.6 % (35.0-50.0); HEMOGLOBIN 10.5 g/dL (12.0-18.0); LYMPHOCYTES 12.7 % (24-44); MCH 27.9 (27-36); MCHC 32.3 g/dl (30-36); MCV 86.4 fl (81-99); NEUTROPHILS 74.6 % (39-80); PLATELET COUNT 176 K/uL (140-440); RBC 3.78 M/ul (4.3-5.7); RDW 15.3 (10.5-15.0)
[2023-05-24 05:51] LABS: ANION GAP 14.1 (7-21); BUN/CREATININE RATIO 26.21 (6.0-28.6); CALCIUM 9.4 mg/dL (8.5-10.1); CREATININE, SERUM 1.64 mg/dL (0.70-1.30); MAGNESIUM 2.5 mg/dL (1.8-2.4); POTASSIUM 4.1 mmol/L (3.5-5.1)
--- NOTE | 2023-05-24 07:01 | NUR ---
PATIENTS OSTOMY BAG LEAKING FROM UNDER ADEHESIVE. PATIENTS OSTOMY APPLIANCE CHANGED. PATIENT TOLERATED ACTIVITY WELL.
--- NOTE | 2023-05-24 07:25 | NUR ---
PT RESTING EYES CLOSED AT TIME OF SHIFT REPORT, CPAP IN PLACE. BREATHING EVEN AND UNLABORED CALL LIGHT AND NEEDED ITEMS IN REACH.
--- NOTE | 2023-05-24 08:05 | NUR ---
PT UP TO BATHROOM DOES SELF CARES OF ILEOSTOMY RETURNS TO SIT IN HIS RECLINER FOR MORNING MEAL.
--- NOTE | 2023-05-24 09:00 | NUR ---
Spoke with Wilfrid. Updated I have sent for auth for his wound vac. He reminded me his [employer] insurance ended on Wed. Let him know I notified Marko on Wednesday in the change to his insurance. He plans on dc to home today, denies needs.
[2023-05-24 10:09] VITALS: BP 110/67
--- NOTE | 2023-05-24 10:16 | NUR ---
PT SITTING UP IN THE CHAIR HAS FINISHED MORNING MEAL. DENIES PAIN OR NEEDS OF.
--- NOTE | 2023-05-24 10:44 | NUR ---
DR PRO IN TO SEE PT DISCUSSES DC PLAN. ALL [facility] ANSWERED
--- NOTE | 2023-05-24 11:00 | NUR ---
Spoke with Dr. Hernandez. He plans on dc of this pt today. He will stop the wound vac and dc pt to home. Wound vac will be placed in the wound clinic when auth is completed. Updated notes emailed to Nahomy at [facility]. Emailed admitting requesting face sheet insurance info be updated. Called Nahomy at [facility] and emailed the new [employer] card with the medicare infor. Let her know Dr. Hernandez is sending this pt home soon.
[2023-05-24] MEDS ORDERED: AMOX TR-K CLV1 EACH PO (11:01)
[2023-05-24] MEDS ORDERED: SUMATRIPTAN SUC50 MG PO (11:04)
[2023-05-24] MEDS ORDERED: K-MG CITRATE 91 EACH PO (11:06)
--- NOTE | 2023-05-24 11:39 | NUR ---
OSTOMY SITE CHANGED. WOUND VAC REMOVED AND REPLACED WITH DRY GAUZE PER ORDERS. PT EDUCATION GIVEN PT IS TO CONTINUE DRY GAUZE DRESSINGS AT HOME UNTIL WOUND VAC CAN BE PLACED OUTPATIENT. PT VERBALIZES UNDERSTANDING AND DEMONSTRATES HOW TO PLACE GAUZE.
[2023-05-24] MEDS ORDERED: POTASSIUM GLUCO99 MG PO (12:02)
[2023-05-24] MEDS ORDERED: MAGOX 400400 MG PO (12:02)
--- NOTE | 2023-05-24 12:50 | NUR ---
2nd IMM letter provided to Wilfrid at 1245 today. Wilfrid is ambulatory independantly, and is up in the restroom brushing his teeth when I eneter the room. He is cheerful, states, "I have met you before" when I introduce myself. I also explained that I was delivering his 2nd IMM letter. He states "I will sign it, I am ready to go." Wilfrid denies questions or concerns regarding the letter or the information presented. Wilfrid also denies any other patient care needs at this time.
--- NOTE | 2023-05-24 13:00 | NUR ---
Updated Bautista, his [employer] wound vac will be placed when auth. Since his insurance ended on Wednesday and Medicare with [employer] started on Wednesday, Auth has not been completed. Chart has been sent. bautista states understanding and states he was told it would take 3 days for his Medig[employer] to kick in. Wound clinic orders were completed by Dr. Hernandez and vp global marketing solutions, Brenda was sending to [facility].
--- NOTE | 2023-05-24 16:12 | NUR ---
Called Katie in [place] and updated when auth is received I will bring the wound vac for home to them as this is the vac serial number which was sent to [facility].
--- NOTE | 2023-05-26 08:07 | NUR ---
Received an email from Nahomy at [facility]. Wound vac has been authed. Wound vac in for home use was in my office and taken to . UPdated Katie Hammond I am taking the Aut[employer] wound vac to to be placed at pts scheduled appt on Wed.
== END 2023-05-24 13:21 | disposition home or self-care (01) | DRG 357 ==
LOC: MS 08:30
PROVIDERS: Colon & Rectal Surgery; ADMIT Surgery; ATTEND Surgery
PROC: 0JB80ZZ Excision of Abdomen Subcutaneous Tissue and Fascia, Open Approach (ICD-10-PCS; principal; 2023-05-20 15:00)
PROC: 0J980ZZ Drainage of Abdomen Subcutaneous Tissue and Fascia, Open Approach (ICD-10-PCS; 2023-05-20 15:00)
DX: K65.0 Generalized (acute) peritonitis (principal); K63.2 Fistula of intestine; E86.0 Dehydration; B96.20 Unspecified Escherichia coli [E. coli] as the cause of diseases classified elsewhere; Z20.822 Contact with and (suspected) exposure to COVID-19; G43.909 Migraine, unspecified, not intractable, without status migrainosus; E83.39 Other disorders of phosphorus metabolism; E83.42 Hypomagnesemia; E87.6 Hypokalemia; N18.9 Chronic kidney disease, unspecified; E78.5 Hyperlipidemia, unspecified; Z91.040 Latex allergy status; Z88.1 Allergy status to other antibiotic agents; Z88.8 Allergy status to other drugs, medicaments and biological substances
CPT/HCPCS: 00840; 36415; 74019; 74177; 80048; 80053; 83735; 84100; 84134; 85025; 87070; 87075; 87205; 94760; 94762; 96360; 96361; A9270; C9803; G0378; J0131; J0690; J2001; J2405; J2704; J3010; J3030; J3475; J3490; J7040; J7060; J7121; Q9967; U0002

== ENCOUNTER 2023-07-05 13:05 | Inpatient (IN) | payer MEDICARE, BC ==
[~2023-07-05] VITALS: Ht 172.7 cm; Wt 73.0 kg
[~2023-07-05 13:05] MED LIST changes: +K-MG CITRATE 91 EACH PO; +MAGOX 400400 MG PO; +POTASSIUM GLUCO99 MG PO
--- NOTE | 2023-07-05 15:08 | NUR ---
1315: PT ARRIVES TO UNIT AMBULATORY WITH CANE ASSIST FOR SCHED DRESSING CHANGE. PLACED IN ROOM 12 SUPINE ON STRETCHER. VSS, RESP EVEN AND UNLABORED. WOUND VAC SUCTION TURNED OFF. WOUND VAC REMOVED WITH ADHESIVE REMOVER. ENTERIC LOOKING CONTENTS NOTED TO BE LEAKING THROUGH DRAPE AND ON BLACK FOAM. SAVED TO THE SIDE FOR MD TO VIEW. WOUND BED CLEANED WITH WOUND CLEANSER AND GAUZE. BEEFY RED WOUND BASE WITH EPITHELIALIZING MARGINS. PT WAITS FOR MD TO TO ASSESS. NO NEEDS, CALL LIGHT WITHIN REACH 1430: MD AT THE BEDSIDE TO ASSESS PT. NEW ORDERS RECEIVED TO REDRESS WOUND WITH WOUND VAC ORDERED AND ADMIT PT FOR CT IN AM. WOUND PREPPED WITH SKIN PREP AND DRAPE TO EDGES. TWO PIECES OF BLACK FOAM TO THE WOUND BASE AND SECURED WITH DRAPING. SUCTION TURNED ON AND SET AT 120MMHG RECOMMENDED. OSTOMY CHANGED AT THIS TIME WELL WITH WAFER PRECUT BY PT. PT TO GET PERSONAL BELONGINGS FROM HOME AND RETURN TO MED SURG ROOM 115. 1455: AMBULATES OFF OF UNIT AT THIS TIME. NO PHYSICAL S/S OF DISTRESS
--- NOTE | 2023-07-05 15:42 | NUR ---
PATIENT AMBULATED IN TO DEPARTMENT. PATIENT IS GETTING SETTLED AND WILL CALL WHEN READY TO FINISH ADMISSION.
[2023-07-05 16:00] VITALS: BP 106/70
--- NOTE | 2023-07-05 16:37 | NUR ---
PATIENT ADMITTED TO MED SURG. RIGHT ABDOMEN ILLEOSTOMY IS INTACT WITH APPLIANCE, PATIENT REPORTS REGULAR GREEN/BROWN STOOL. MID ABDOMEN WOUND VAC IS IN PLACE WITH PATIENT'S HOME WOUND VAC IN PLACE. LEFT ABDOMEN MIGUELITO DRAIN IS INTACT WITH PURULENT DRAINAGE. PATIENT INDICATES THAT WOUND VAC HAS PURULENT DRAINAGE SIMILAR TO MIGUELITO DRAIN, BUT APPLIANCE WAS RECENTLY CHANGED AND NO DRAINAGE IS NOTED. PATIENT DENIES PAIN 0/10, DENIES NAUSEA AND GIVEN JELLO, WITH P.O. MEDS. PATIENT HAS HOME CPAP IN ROOM AND PLAN TO CALL RT TO SEE IF HE WOULD LIKE TO INSPECT MACHINE. NO OTHER NEEDS AT THIS TIME. CALL TO SEE IF WE CAN GET ULTRASOUND IV PLACED. UNABLE TO PLACE IV AT THIS TIME.
--- NOTE | 2023-07-05 17:09 | NUR ---
ER NURSE IN TO START IV, LABS SENT. LR @ 85 TO RIGHT HAND #22 GUAGE.
[2023-07-05 17:13] LABS: BASOPHILS 0.5 % (0-2); EOSINOPHILS 2.8 % (0-6); HEMATOCRIT 36.8 % (35.0-50.0); HEMOGLOBIN 12.2 g/dL (12.0-18.0); LYMPHOCYTES 12.2 % (24-44); MCH 28.6 (27-36); MCHC 33.3 g/dl (30-36); MCV 86.1 fl (81-99); MONOCYTES 8.8 % (0-12); NEUTROPHILS 75.7 % (39-80); PLATELET COUNT 210 K/uL (140-440); RBC 4.27 M/ul (4.3-5.7); RDW 16.8 (10.5-15.0)
[2023-07-05] MEDS ORDERED: ELIQUIS5 MG PO (17:15)
[2023-07-05 17:28] LABS: ALBUMIN/GLOBULIN RATIO 0.91 (1.1-2.4); ANION GAP 15.7 (7-21); BILIRUBIN, TOTAL 0.4 ng/dL (0.2-1.0); BUN/CREATININE RATIO 23.2 (6.0-28.6); CALCIUM 9.7 mg/dL (8.5-10.1); CREATININE, SERUM 2.5 mg/dL (0.70-1.30); MAGNESIUM 1.5 mg/dL (1.8-2.4); POTASSIUM 3.7 mmol/L (3.5-5.1); PROTEIN, TOTAL 8.4 g/dL (6.4-8.2)
--- NOTE | 2023-07-05 18:35 | NUR ---
BOTH NARES SWABBED WITHOUT COMPLICATION.
--- NOTE | 2023-07-05 18:39 | NUR ---
NEED TO GET A URINE SAMPLE, PER ORDERS, SIGN ON DOOR. IV MAG IS INFUSING FOR 1 HOUR. LR BOLUS TO INFUSE NEXT.
--- NOTE | 2023-07-05 19:01 | NUR ---
PER FAHAD IN LAB, PREALBUMIN LAB NEEDED TO BE CHANGED TO SEND OUT [facility] LAB#[id number]. THIS LAB WAS PLACED IN [facility] WITH LAB #[id number]. THERE IS NO OTHER ORDER OPTION FOR AN [facility] PREALBUMIN LAB.
--- NOTE | 2023-07-05 19:35 | NUR ---
REPORT RECEIVED FROM SHAR RAMIREZ. pt RESTING IN BED AWAKE, IVF BOLUS INFUSING WNL. pt DENIES NEEDS. CALL LIGHT IN REACH.
--- NOTE | 2023-07-05 20:09 | NUR ---
URINE SAMPLE SENT TO LAB. PT DENIES OTHER NEEDS AT THIS TIME. IN BED, WATCHING TV.
[2023-07-05 20:14] LABS: BILIRUBIN, URINE NEGATIVE (negative); BLOOD/HGB, URINE NEGATIVE (Negative); KETONE, URINE NEGATIVE (Negative); LEUK ESTERASE, URINE NEGATIVE (negative); NITRITE, URINE NEGATIVE (negative); PH, URINE 5.5 (5-7)
[2023-07-05 20:20] LABS: EPITHELIAL CELLS, URINE SQUAMOUS 1+ /lpf (0-1+)
[2023-07-05 20:21] LABS: BACTERIA, URINE RARE /hpf (negative); CASTS, URINE NONE SEEN \\lpf; CRYSTALS, URINE NONE SEEN (0-1+); RED BLOOD CELLS, URINE 0-1 /hpf (0-5); REFLEX CULTURE, URINE No (No)
[2023-07-05 20:28] VITALS: BP 113/76
--- NOTE | 2023-07-05 20:44 | NUR ---
Patient awake in bed watching tv, no acute distress. Vital signs taken at this time. Patient provided with broth per his request. No current needs at this time. Call light within reach.
--- NOTE | 2023-07-05 21:30 | NUR ---
pt SITTING UP IN BED, IV PUMP ALARMING, DISTAL OCCLUSION, NOW INFUSING WNL. SBA TO RESTROOM. OSTOMY EMPTIED BY pt, 400 MLS GREEN OUTPUT. SMALL AMT MILKY DRAINAGE IN MIGUELITO DRAIN NOTED. pt DENIES PAIN. ASSESSMENT COMPLETE. WOUND VAC IN PLACE, pt DOES NOT HAVE GRINDER AND PLATER FOR WOUND VAC, BATTERY FLASHING GREEN AT THIS TIME, CHARGED. GENERAL PRACTICE UPDATED.
[2023-07-06 00:14] VITALS: BP 106/65
--- NOTE | 2023-07-06 00:24 | NUR ---
CALL LIGHT ANSWERED. SBA TO RESTROOM FOR VOID AND TO EMPTY OSTOMY BAG. pt BACK IN BED. VSS. DENIES PAIN. DENIES ADDITIONAL NEEDS. IVF INFUSING WNL. WOUND VAC BATTERY STILL FUNCTIONING AT THIS TIME. CALL LIGHT WITHIN REACH.
--- NOTE | 2023-07-06 02:43 | NUR ---
PATIENT RESTING IN BED WITH EYES CLOSED. HOME CPAP IN USE. RESP OBSERVED. CALL LIGHT WITH IN REACH. NO OTHER NEEDS AT THIS TIME.
--- NOTE | 2023-07-06 03:00 | NUR ---
PATIENT CALLED. Pt STATES HIS BATTERY IS CLOSE TO DYING ON HIS WOUND VAC. THIS RN TOLD HIM WE WILL TRY TO FIND SOMETHING. [employer] CALLED TO SEE IF THERE WAS A EXTRA ENGINE EMISSION TECHNICIAN ANYWHERE WE COULD USE. [employer] STATES HE'LL SEE WHAT HE CAN DO.
--- NOTE | 2023-07-06 04:15 | NUR ---
PRODUCT SAFETY TEST ENGINEER BROUGHT NREMT FOR WOUND VAC. NREMT DOES NOT FIT THE MACHINE. PATIENT STATES HIS DOESN'T DRIVE, SO THERE IS NO WAY FOR HIM TO GET THE NREMT FROM HER.
--- NOTE | 2023-07-06 04:30 | NUR ---
PATIENT RESTING IN BED. ASSESSMENT DONE. CALL LIGHT WITHIN REACH. NO OTHER NEEDS AT THIS TIME.
--- NOTE | 2023-07-06 05:07 | NUR ---
MULTIPLE CHARGERS HAVE BEEN TRIED FOR THE WOUND VAC. STILL NO THING IS COMPATABLE. WILL CONTINUE TO TROUBLE SHOOT.
[2023-07-06 05:35] LABS: ANION GAP 13.1 (7-21); BUN/CREATININE RATIO 23.88 (6.0-28.6); CALCIUM 9.1 mg/dL (8.5-10.1); CREATININE, SERUM 1.8 mg/dL (0.70-1.30); POTASSIUM 4.1 mmol/L (3.5-5.1)
--- NOTE | 2023-07-06 05:40 | NUR ---
CALL LIGHT ANSWERED. SBA. UP TO BATHROOM TO EMPTY OSTOMY BAG. PATIENT IS BACK IN BED. V/S AND I&O'S TAKEN AND RECORDED. EMPTIED URINAL AND MIGUELITO DRAIN. ICE WATER REFILLED. NO OTHER NEEDS AT THIS TIME.
[2023-07-06 05:45] VITALS: BP 103/63
--- NOTE | 2023-07-06 05:47 | NUR ---
VITAL SIGNS DONE. PATIENT UP TO BR SBA WITH PAMELA WARD. CALL LIGHT WITHIN REACH. NO OTHER NEEDS AT THIS TIME.
--- NOTE | 2023-07-06 07:20 | NUR ---
Report received from Justina MYLES. Patient resting in bed, A+O, states no pain at this time but endorses nausea- 8mg PRN zofran administered. IVF infusing WNL. Wound vac now charging. Call light in reach.
[2023-07-06 08:31] VITALS: BP 105/63
--- NOTE | 2023-07-06 09:02 | NUR ---
Rounded in room with Dr Villatoro, patient assessment complete. Medications administered per order. VSS, I/Os complete. Ostomy emptied WNL. Pt ambulates to BR with SBA. Wound vac to suction WNL.
[2023-07-06] MEDS ORDERED: OZEMPIC0.25 MG/02 SUB-Q (09:48)
--- NOTE | 2023-07-06 09:49 | NUR ---
MED REC COMPLETE
--- NOTE | 2023-07-06 10:10 | NUR ---
PT JUST RETURNING FROM IMAGING. SHORT VISIT. LEFT GUIDEPOST WITH CONTACT CARD AND PRAYER CARD. PRAYED FOR HEALING OF BODY AND STRENGTHENING OF SPIRIT.
--- NOTE | 2023-07-06 11:00 | NUR ---
IV Site to R wrist painful to patient. No extravasation noted- but IV pulled due to patient request. 1 attempt by this RN to L forearm unsuccessful. US guided capable RN in room to assess patient.
--- NOTE | 2023-07-06 11:30 | NUR ---
Notified by patient ostomy site to be leaking. New appliance in place with skin care complete.
--- NOTE | 2023-07-06 12:23 | NUR ---
PATIENT GIVEN 2ND DOSE OF GASTROGRAFIN AT 1213. OSTOMY BAG LEAKED, NEW CHUX TO BED, GOWN CHANGED. PATIENT UP TO BATHROOM TO VOID.
--- NOTE | 2023-07-06 13:14 | NUR ---
UR NOTE [facility] GENERAL SURGERY OR PROCEDURE (GRG) INPATIENT 07/05/23 MET ADMIT CRITERIA (PROCEDURE NOT COMPLETED YET) 07/06 VARIANCE STAGE 1
--- NOTE | 2023-07-06 13:29 | NUR ---
Patient back from CT scan. Administered scheduled augmentin and IV PRN zofran. Assessed IV site to be WNL. Hot broth provided. IVF infusing WNL. Pt denies further needs. Call light in reach
[2023-07-06 14:14] VITALS: BP 100/66
--- NOTE | 2023-07-06 15:00 | NUR ---
Spoke with Wilfrid after several attempts to see. He has been busy throughout the day. Pt states he continues to live in his home with his . Four steps to get into the home and he does not have any issues to get in or out. He has a walker,cane, and a CPAP. He has his wifes purple rolator today as he used the seat to bring his personal items when he checked in. He states he has been xrayed and CT completed. He is unsure where he goes from here as he is waiting to see Dr. Hernandez. He denies needs. He states he son that has helped in the past has moved to [place]. Both of his children call and check on them frequently and would help if needed. He cont. to plan for dc to home when cleared medically by Dr. Hernandez. He denies financial issues. He retired in April of this year.
--- NOTE | 2023-07-06 17:49 | NUR ---
PT CALLED FOR ASSISTANCE TO USE REST ROOM. PATIENT WAS GETTING READY T STAND PTS COLOSTOMY BAG BURST. PT WAS WIPED DOWN AND CHANGED WITH NEW COLOSTOMY BAG PLACED. AFTER ASSESSING PT MIGUELITO DRAIN SUTURE WAS OPEN AND MIGUELITO DRAIN IS DISLODGED. USED A TEGASORB TO HOLD IN PLACE. CALLING DR PRO TO SEE WHAT HE WANTS DONE
--- NOTE | 2023-07-06 18:09 | NUR ---
CALLED DR PRO ABOUT THE DISLODGEMENT AND HE SAID TO SECURE THE MIGUELITO DRAIN TO THE ABDOMEN WITH LARGE OPSITE BUT NOT TO COVER THE ACTUAL HOLE. AND HE WILL COME TOMORROW AND TAKE A LOOKA T THE SUTURE THAT WAS UNDONE. ALSO CHANGED PT DIET TO LOW FIBER.
--- NOTE | 2023-07-06 18:36 | NUR ---
PATIENT SITTING UP IN CHAIR AT THIS TIME. VITALS AND I&O'S CHARTED. CALL LIGHT IN REACH. NO FURTHER NEEDS AT THIS TIME.
[2023-07-06 18:47] VITALS: BP 100/64
--- NOTE | 2023-07-06 19:20 | NUR ---
shift report recieved from dayshift marianna escoto at bedside. pt awake and resting in bed, on ra. rr even and unlabored, no distress noted. ostomy site covered with appliance, recently changed per marianna escoto and wnl. valentin to left quadrant noted with sutures and opsite, drainage somewhat tannish/clear in color. wound vac to abd wnl, cont suction at 120 mmhg. iv site wnl, fluids infusing as directed. no needs or cocnerns verbalized, call light in reach.
--- NOTE | 2023-07-06 20:22 | HP ---
[facility] [address], [place] [address] Signed ADMISSION DATE: 07/05/2023 REASON FOR ADMISSION: Emerging enterocutaneous fistula, midline. 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 He has had a number of operations including subtotal colectomy with end ileostomy and ultimately a takedown of the ileostomy with an ileoproctostomy and subsequent anastomotic leak detected requiring exploration, closure of the leak and proximal diversion with a loop ileostomy. He has been managed with a wound VAC in the midline incision and a drain was placed in deep pelvis and tunneled out the left side of the abdomen. He has had a mucopurulent discharge overtime, but no sign of sepsis and doing well as regard his ileostomy output and oral intake. In recent times, he has had increase of egress of the midline incision and today recognized at [facility] dressing change to have fibrous material highly consistent with an enterocutaneous fistula. He is admitted for further evaluation and care. The patient says he has not felt well in the past few days. He has had no fever or chills, but he is very slow for manifesting in that way for any toxic problem. He has had renal failure in the past and has had no recurrent problem in that regard that we are aware of. PAST MEDICAL HISTORY: Notable for diabetes mellitus, acute renal failure, which had resolved and subtotal colectomy with ileoproctostomy as previously noted. There are innumerable details not mentioned at this time . SOCIAL HISTORY: He is retired from the [employer]. He has . His is reasonably independent, though does have low-grade dementia. REVIEW OF SYSTEMS: He denies any shortness of breath or chest pain. He has had no dysphagia or dysuria. He has had no dysfunction of his ileostomy. Egress of his mucopurulent material is from the midline incision. A drain that is placed tunneled through the left abdomen has shown mucopurulent material as well. PHYSICAL EXAMINATION: GENERAL: Alert and oriented without sign of systemic toxicity, but somewhat subdued. Electronically Signed By: MICHAEL PRO MD 07/06/232021 PATIENT NAME: DAVID POTTS HISTORY AND PHYSICAL DATE OF : 57 REPORT #: [id number] PHYSICIAN: MICHAEL PRO MD PCP: Tristan Carrera DO REPORT IS CONFIDENTIAL AND NOT TO BE RELEASED WITHOUT AUTHORIZATION [facility] [address], [place] [address] Signed NECK: Trachea is midline. CHEST: Clear. HEART: Regular. ABDOMEN: Nondistended. The midline incision shows mucopurulent discharge. The ileostomy to the right of the midline appears viable and functioning. A drain that is tunneled from the left abdomen through the midline and extending to the pelvis shows mucopurulent discharge. Egress of the midline discharge shows enteric contents including seeds and so forth, but no actual bile or anything of that sort. 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 He is already organized to have a CT scan with special measures this . It is appropriate that he be admitted at this time more fully characterized including evaluation for his electrolyte situation, fluid status and imaging studies in a more timely way. He agrees to this. MD ARIA Mane/ALEXL /[id number] Copies: ~ Electronically Signed By: MICHAEL PRO MD 07/06/232021 PATIENT NAME: DAVID POTTS HISTORY AND PHYSICAL DATE OF : 57 REPORT #: [id number] PHYSICIAN: MICHAEL PRO MD PCP: Tristan Carrera DO REPORT IS CONFIDENTIAL AND NOT TO BE RELEASED WITHOUT AUTHORIZATION
[2023-07-06 21:30] VITALS: BP 108/71
--- NOTE | 2023-07-06 21:40 | NUR ---
WALKED WITH PATIENT 8 LAPS AROUND THE NURSE'S STATION. PATIENT IS BACK IN BED. EMPTIED OSTOMY BY PATIENT AND RECORDED. SIDE TABLE WITH PERSONAL BELONGINGS AND CALL LIGHT WITHIN REACH. WARM BLANKET PROVIDED. NO FURTHER NEEDS AT THIS TIME.
--- NOTE | 2023-07-06 21:48 | NUR ---
ASSESSMENT COMPLETE, SCHEDULED MEDS GIVEN- W/ EXCEPTION TO SCHEDULED TYLENOL PER pt REQUEST. pt DENEIS PAIN, PRN ZOFRAN GIVEN FOR REPORTS NAUSEA, BOWEL TONES ACTIVE. NO CHANGE TO MIGUELITO DRAIN, WOOUND VAC, AND OSTOMY SITE SINCE START OF SHIFT. pt EMPTED OWN OSTOMY SITE. SCANT DRAINAGE NOTED TO MIGUELITO DRAIN, SECURED TO GOWN. WOUND VAC REMAINS WNL, AT 120MMHG CONT SUCTION. pt UP SBA WITH FWW AND AMBULATED MULTIPLE LAPS WITH SYLVIA SANTIAGO. IV SITE WNL, IV FLUIDS INFUSING DIRECTED. VSS, FRESH ICE WATER PROVDIED.
--- NOTE | 2023-07-06 23:53 | NUR ---
ROUNDED ON pt, pt DENIES NEEDS OR CONCERNS. CALL LIGHT IN REACH. IV SITE WNL, FLUIDS INFUSING DIRECTED.
--- NOTE | 2023-07-07 00:59 | NUR ---
new bag iv fluids hung and infusing as directed. call light in reach and iv fluids infusing as directed, iv site wnl. on ra, rr even and unlabored. no additional needs or concerns verbalized.
--- NOTE | 2023-07-07 05:22 | NUR ---
SEE PAPER CHARTING REGARDING DOCUMENTION FROM 0100 TO 0520, DUE TO MEDI-TECH DOWN TIME.
[2023-07-07 05:33] VITALS: BP 108/62
--- NOTE | 2023-07-07 05:43 | NUR ---
VS AND I&O'S COLLECTED AND CHARTED, STABLE AND WNL. OSTOMY APPLIANCE REMAINS WNL. IV SITE WNL, FLUIDS INFUSING DIRECTED. pt SELVIN PAIN AND NAUSEA, BOWEL TONES REMAIN ACTIVE. MIGUELITO DRAIN EMTPIED FOR 10MLS, RED/BROWN IN MIGUELITO BULB-OPAQUE CLEAR COLOR WITH HADLEY TINT IN TUBING, pt REPORTS IT LOOKED "MILKY" PREVIOUSLY.VERY SCANT OOZING NOTED AT MIGUELITO INSERTION SITE, RED IN COLOR. OPSITE REMAINS IN PLACE TO PROVIDE ADDITIONAL SECUREMENT, SUTURES ALSO REMAIN IN PLACE. WOUND VAC REMAINS AT CONT SUCTION, 120MMHG. WOUND VAC DRESSING WNL-DIFFICULT TO MEASURE OUTPUT D/T SPONGE IN WOUND VAC CANISTER, OUTPUT CLEAR IN WOUND VAC TUBING. pt DENEIS ADDITIONAL NEEDS OR CONCERNS, CALL LIGHT IN REACH.
--- NOTE | 2023-07-07 07:19 | NUR ---
REPORT RECEIVED FROM SHAR ADAMS. PT RESTING IN BED WITH CPAP IN PLACE. PT AWAKE BUT REPORTS HE WOULD LIKE TO REST MORE. PT DENIES PAIN AND NAUSEA AT THIS TIME. WOUND VAC WNL WITH 120MM/HG IN PLACE AND SUCTION APPARENT TO FOAM DRESSING. ALEKSANDR/MIGUELITO DRAIN CONTINUES TO SHOW PURULANT DRAINAGE. OSTOMY WNL. PT REPORTS HE WOULD LIKE TO CONTINUE RESTING AT THIS TIME AND POSSIBLY GO BACK TO SLEEP. NO ADDITIONAL REQUESTS OR COMPLAINTS. CALL LIGHT WITHIN REACH. BED RAILS UP. THIS RN ASSUMING CARE OF PT WITH RINA. SHAR.
--- NOTE | 2023-07-07 07:22 | NUR ---
REPORT RECEIVED FROM SHAR ADAMS. PT USES CALL LIGHT D/T IV PUMP ALARMING, ARM REPOSITIONED AND PUMP ALARM OFF. PT STATES NO FURTHER NEEDS AT THIS TIME. CALL LIGHT WITHIN REACH, BED RAILS UP. PT WEARING CPAP AND STATES HE WOULD LIKE TO GET "SOME MORE REST". ASSUMING CARE OF PT WITH SHAR COLLINS.
--- NOTE | 2023-07-07 07:40 | NUR ---
MORNING ASSESSMENT AND MEDICATIONS DUE, MEDICATIONS GIVEN (SEE EMAR). PT AWAKE AND ALERT IN BED. DENNIS MYLES ASSESSED IV, SEE DENNIS RN NOTE. PT AMBULATES INDEPENDENTLY TO RESTROOM WHILE DISCONNECTED FROM IV PUMP. PT STATES "I DON'T NEED THE WALKER UNLESS I AM WALKING AROUND THE HALLS". PT STEADY IN GAIT. PT NOT CURRENTLY WEARING SCDs. PT EMPTIES OSTOMY BAG INDEPENDENTLY, LIQUID STOOL FROM BAG, PT VOIDS QUANTITY SUFFICIENT CLEAR YELLOW URINE. PT DENIES NAUSEA AT THIS TIME. SKIN SURROUNDING OSTOMY BAG WNL, OSTOMY C/D/I, STOMA NOT SEEN BY THIS RN D/T NO WINDOW ON COLLECTION BAG, PT STATES IS "NORMAL". PT STATES HE HAS BEEN "GETTING A LOT OF GAS". WOUND VAC IN PLACE, SITE AND DRESSING C/D/I, SCANT AMOUNT OF PURULENT RUST COLORED DRAINAGE PRESENT IN VAC AND SEEN IN TUBING. PT MOVED TO LOW FIBER DIET LAST NIGHT, STATED HE HAS SOME NAUSEA LAST NIGHT, BUT THAT ZOFRAN "HELPED". MIGUELITO/ALEKSANDR DRAIN IN PLACE, SCANT RED DRAINAGE AT INSERTION SITE, HELD IN PLACE WITH OPSITE. SCANT AMOUNT OF PURULENT DRAINAGE PRESENT IN TUBING AND DRAIN BULB, EMPTIED AND SUCTION REAPPLIED. PT STATES NO FURTHER NEEDS AT THIS TIME, CALL LIGHT WITHIN REACH, PT UP TO CHAIR.
--- NOTE | 2023-07-07 08:05 | NUR ---
THIS RN TO ROOM TO ASSIST WITH IV START. PT REPORTS CURRENT IV IS "BEEPING ALL THE TIME" AND REQUESTS A DIFFERENT SITE. IV TO RIGHT FORARM FLUSHED, SLUGISH, NO S/S OF PHELBITIS SEEN. SALINE LOCKED WITH ALCOHOL CAP APPLIED. NEW IV STARTED TO RIGHT HAND, BRISK BLOOD RETURN PRESENT. IV FLUIDS STARTED TO RIGHT HAND IV SITE. PT TOLERATED WELL. PT UP TO CHAIR WITH STAND BY ASSIST. WARM BLANKET PROVIDED. PT TALKS ABOUT PLAN OF CARE. ICE WATER REFILLED. TOOTH BRUSH AND COMB PROVIDED PER PT REQUEST. NO ADDITIONAL REQUESTS OR COMPLAINTS. CALL LIGHT WITHIN REACH. BED RAILS UP. PTS PRIMARY RN UPDATED.
--- NOTE | 2023-07-07 09:29 | NUR ---
PATIENT UP TO BATHROOM AND BACK TO CHAIR, SBA. VITALS AND I&O'S CHARTED. PATIENT DID AM CARE AND ORAL CARE. CALL LIGHT IN REACH. NO FURTHER NEEDS AT THIS TIME.
[2023-07-07 09:35] VITALS: BP 110/72
--- NOTE | 2023-07-07 10:05 | NUR ---
THIS RN TO ROOM TO CHECK ON PT. PT REMAINS UP TO CHAIR. ICE WATER REFILLED. PT DENIES PAIN AND NAUSEA. PT UPDATED ON PLAN OF CARE. DENIES REQUESTS OR COMPLAINTS AT THIS TIME. PT WAS ABLE TO EAT 100% OF HIS LOW FIBER BREAKFAST. CALL LIGHT WITHIN REACH.
--- NOTE | 2023-07-07 10:52 | NUR ---
HOURLY ROUNDING, PT STATES HE WOULD LIKE TO EMPTY HIS OSTOMY BAG, PT UP TO RESTROOM WITH LINE AND TUBE MANAGEMENT ASSISTANCE. WHILE EMPTYING OSTOMY BAG, GRADUATED CYLINDER FALLS AND CONTENTS ON BATHROOM FLOOR. PT GIVEN NEW GOWN, FLOOR WIPED, EVS CONTACTED FOR FLOOR CLEANING. NO CHANGE IN LIQUID STOOL FROM MORNING ASSESSMENT NOTE. OSTOMY SITE REMAINS C/D/I WITH EDGES OF DRESSING STABLE, NOT LIFTING. NO CHANGE IN WOUND VAC OR ALEKSANDR DRAIN (DRAIN TYPE CONFIRMED WITH DR PRO). PT BACK UP TO CHAIR, NEW WARM BLANKET PROVIDED, NO FURTHER NEEDS STATED AT THIS TIME, CALL LIGHT WITHIN REACH.
--- NOTE | 2023-07-07 11:10 | NUR ---
PT IN GOOD SPIRITS. EXERCISED MINISTRY OF PRESENCE PT TALKED OF CLAUDIA AND MINISTRY. PT CONSENTED TO PRAYER. PRAYED FOR GUIDANCE AND [facility].
--- NOTE | 2023-07-07 11:50 | NUR ---
DR PRO UPDATED ON ASSESSMENT AND STATUS. MD STATES TO HAVE SUTURE KIT AVAILABLE FOR POSSIBLE SUTURE PLACEMENT TO SECURE ALEKSANDR DRAIN, SUPPLIES AT BEDSIDE. PT UPDATED ON PLAN OF CARE, PT VERBALIZES UNDERSTANDING AND IS ABLE TO REPEAT BACK INFORMATION PROVIDED BY MD. PT STATES NO NEEDS AT THIS TIME AND REPORTS NO PAIN AT THIS TIME. CALL LIGHT WITHIN REACH.
--- NOTE | 2023-07-07 12:10 | NUR ---
MEDICATION DUE, GIVEN (SEE EMAR). NEW BAG OF LR (SEE EMAR). PT STATES NO NEEDS AT THIS TIME, CALL LIGHT WITHIN REACH.
--- OUTSIDE RECORDS SUMMARY | 2023-07-07 12:44 | XMS | Continuity of Care Document ---
Demographics + + + | Address | [facility] [address] | | | [place] [address] | + + + | Preferred Language | Unknown | + + + | Marital Status | | + + + | Anabaptist Affiliation | Unknown | + + + | Race | White | + + + | Ethnic Group | Not or | + + + Author + + + | Author | [facility] | + + + | Organization | [facility] | + + + | Address | [address] [facility] | | | [place] [address] | + + + | Phone | | + + + Care Team Providers + + + + | Care Development Representative Name | Role | Phone | + + + + Unavailable | Unavailable | + + + + Unavailable | Unavailable | + + + + Allergies and Intolerances + + + + + + | date | description | facility | reaction | severity | + + + + + + | 2023-06-02 | heparin, | [facility] | (no reaction) | Active | | 00:00 | [facility] | [facility] | | | + + + + + + | 2023-06-02 | Heparin | [facility] | (no reaction) | Active | | 00:00 | (Porcine) in | [facility] | | | | | NaCl 10-0.9 | | | | | | UNIT/ML-% | | | | | | Injection | | | | | | Solution | | | | + + + + + + Encounters No information. Functional Status No information. Immunizations No information. Medications + + + + | date | description | facility | + + + + | 2023-06-02 00:00 | Ozempic (0.25 or 0.5 | [facility] | | | MG/DOSE) 2 MG/3ML | | | | Subcutaneous Solution | | | | Pen-injector | | + + + + | 2023-06-02 00:00 | 0.25 MG, 0.5 MG Dose 3 ML | [facility] | | | semaglutide 0.68 MG/ML Pen | | | | Injector [Ozempic] | | + + + + Problems No information. Procedures No information. Results/Labs No information. Social History +--------+ + + | date | description | facility | +--------+ + + Vital Signs + + + +---------+ | date | measurement | value | units | + + + +---------+ | 2023-06-02 00:00 | BMI | 23.5 | 1 | + + + +---------+ | 2023-06-02 00:00 | BP_diastolic | 83 | mmHg | + + + +---------+ | 2023-06-02 00:00 | BP_systolic | 121 | mmHg | + + + +---------+ | 2023-06-02 00:00 | BSA | 1.8 | 1 | + + + +---------+ | 2023-06-02 00:00 | heart_rate | 98 | /min | + + + +---------+ | 2023-06-02 00:00 | height_metric | 173.35 | cm | + + + +---------+ | 2023-06-02 00:00 | height_standard | 68.25 | in | + + + +---------+ | 2023-06-02 00:00 | weight_metric | 70.58 | kg | + + + +---------+ | 2023-06-02 00:00 | weight_standard | 155.6 | lb | + + + +---------+"
--- NOTE | 2023-07-07 13:19 | NUR ---
AFTERNOON ASSESSMENT. PT STATES PAIN IS CURRENTLY 3/10 IN HIS BACK, REQUESTS PAIN MEDICATION, GIVEN (SEE EMAR). PT ALSO STATES HE IS HAVING "SOME" NAUSEA AND REQUESTS NAUSEA MEDICATION, GIVEN (SEE EMAR). PT UP TO RESTROOM, LIQUID BROWN/GREEN STOOL OUT OF OSTOMY BAG. PT VOIDING QUANTITY SUFFICIENT CLEAR YELLOW URINE. PT AMBULATES WITH SBA AND LINE AND TUBE MANAGEMENT TO RESTROOM AND BACK TO CHAIR. NO CHANGE IN OSTOMY SITE, EDGES C/D/I AND NO PEELING. NO CHANGE IN ALEKSANDR DRAIN, SITE CONTINUES TO BE C/D/I WITH REMAINING DRY DRAINAGE AT INSERTION SITE. NO CHANGE IN WOUND VAC, SUCTION CONTINUOUS AT 120 AND SCANT RUST COLORED PURULENT DRAINAGE REMAINS. PT GIVEN NEW WARM BLANKET, NO FURTHER NEEDS AT THIS TIME, CALL LIGHT WITHIN REACH.
[2023-07-07 14:03] VITALS: BP 106/70
--- NOTE | 2023-07-07 14:27 | NUR ---
HOURLY ROUNDING. PT UP TO CHAIR WATCHING SHOWS ON HIS TABLET. PT STATES PAIN IN HIS BACK IS NOW 1/10 AND DENIES ANYMORE NAUSEA AT THIS TIME. PT STATES NO FURTHER NEEDS, CALL LIGHT WITHIN REACH.
--- NOTE | 2023-07-07 16:05 | NUR ---
HOURLY ROUNDING AND MEDICATION DUE, MEDICATION GIVEN (SEE EMAR). PT STATES PAIN REMAINS AT 1/10 IN HIS BACK AND STATES THAT THE PILLOWS ON HIS CHAIR AND THE PAIN MEDICATION ARE "HELPING A LOT". PT STATES NO FURTHER NEEDS AT THIS TIME, CALL LIGHT WITHIN REACH.
--- NOTE | 2023-07-07 16:30 | NUR ---
DR PRO TO BEDSIDE FOR SUTURE PLACEMENT TO SECURE ALEKSANDR DRAIN AND FOR EVALUATION OF STOMA. ORDERS GIVEN TO SALINE LOCK PT AT THIS TIME AND DC'D IV FLUIDS. ORDERS ENTERED. REAPET BACK PERFORMED. IV FLUSHED AND SALINE LOCKED. ALCOHOL CAP APPLIED.STAND BY ASSIST BACK TO BED FOR PROCEEDURE. THIS RN ASSISTS DR. PRO WITH PROCEEDURE. PT TOLERATED SUTURE PLACEMENT WELL. ALEKSANDR DRAIN INCERTION SITE COVERED WITH GAUZE AND OPSITE PER DR. PRO'S BEDSIDE ORDERS. OSTOMY BAG REMOVED PER DR. PRO FOR EVALUATION AND PROCEEDUE WITH STOMA. STOMA PINK AND MOIST. SITE APPEARS WNL. OSTOMY RING PLACED WELL WITH NO EXPOSED SKIN IN CONTACT WITH STOOL. BROWN LIQUID STOOL AND SONIA CONTINUES TO COME FROM STOMA, WNL. VASALINE IMPREGNATED GAUZE PLACED IN 2ND STOMA (SEE NOTE FROM DR. PRO). NEW OSTOMY BAG PLACED. WOUND VAC SHOWS SMALL AMOUNT OF GREEN DRAINAGE UNDER OPSITE DRESSING. SUCTION REMAINS IN PLACE AT 120MM/HG. SUCTION TO DRESSING WNL. DR. PRO AWARE OF LEAKING GREEN FLUID UNDER DRESSING, NO NEW ORDERS AT THIS TIME. PT TOLERATED PROCEEDURE WELL. STAND BY ASSIST UP TO RESTROOM. PT REPORTS FEELINGS OF "PRESSURE" AND "FULLNESS" IN RLQ, DENIES PAIN AND NAUSEA. STAND BY ASSIST BACK TO CHAIR. NO ICE WATER REFILLED. NO ADDITIONAL REQUESTS OR COMPLAINTS. CALL LIGHT WITHIN REACH.
--- NOTE | 2023-07-07 18:00 | NUR ---
PTS DAUGHTER, THOMAS, CALLED AND UPDATED PER PTS REQUEST. THOMAS, VERBALIZES UNDERSTANDING OF UPDATE AND PLAN OF CARE. THOMAS STATES HER QUESTIONS HAVE BEEN ANSWERED.
--- NOTE | 2023-07-07 18:18 | NUR ---
HOURLY ROUNDING. PT UP TO CHAIR, HAS FINISHED HIS DINNER. PT STATES HE IS HAVING "SOME" NAUSEA AFTER EATING, DENIES NEED FOR NAUSEA MEDICATION AT THIS TIME. PT DENIES PAIN AT THIS TIME. PT STATES NO FURTHER NEEDS AT THIS TIME, CALL LIGHT WITHIN REACH.
--- NOTE | 2023-07-07 18:20 | NUR ---
PER HERE FOR FISTULA. PT REMAINS ALERT AND OREINTED THROUGHOUT SHIFT. PT UP WITH STAND BY ASSIST AND OCCATIONALLY INDEPENDANT THIS SHIFT. PT STEADY ON FEET AND AWARE OF SAFETY HAZARDS. PT ADVANCED TO LOW FIBER DIET AND IS TOLERATING WELL. WOUND VAC CONTINUES AT 120MM/HG AND CONTINUES TO SHOW RUSY COLORED PURULENT DRAINAGE. GREEN/YELLOW DRAINAGE SEEN UNDER DRESSING AT DISTAL END OF FOAM. MD AWARE. SKIN AROUND WOUND VAC SITE REMAINS WNL. ALEKSANDR DRAIN RESUCCURED WITH SUTURES BY MD THIS SHIFT. INCERTION SITE NOW COVERED WITH GAUZE AND OPSITE, PER MD. SMALL AMOUNTS OF PURULENT DRAINAGE SEEN IN ALEKSANDR DRAIN BULB. OSTOMY REMAINS WNL WITH MOIST PINK STOMA X2. OSTOMY PROCEEDURE PERFORMED BY MD THIS SHIFT. PT TOELARTED WELL. OSTOMY HAS BROWN TO YELLOW/GREEN OUTPUT, WNL THIS SHIFT. ABDOMEN REMAINS SOFT AND NON DISTENDED. PRN TYELNOL AND ZOFRAN GIVEN X1. PT REMAINS AFEBRIAL SO FAR THIS SHIFT. IV FLUIDS DC'D PT IS TAKING LARGE AMOUNTS OF WATER PO. PT VOIDING QUANITTY SUFFICIENT. PT USES CALL LIGHT AND MAKES NEEDS KNOWN.
[2023-07-07 18:38] VITALS: BP 111/73
--- NOTE | 2023-07-07 19:51 | NUR ---
REPORT RECIEVED FROM DENNIS MYLES AND RINA MYLES. PATIENT SITTING IN CHAIR. ABDOMEN ASSESSED. CALL LIGHT WITHIN REACH. NO OTHER NEEDS AT THIS TIME.
[2023-07-07 21:55] VITALS: BP 106/67
--- NOTE | 2023-07-07 22:02 | NUR ---
ASSESSMENT AND VITAL SIGNS DONE. SCHEDULED MEDICATIONS ADMINISTERED, SEE MAR. PURULENT DRAINAGE LEAKING FROM WOUND VAC. WOUND VAC SEAL STILL INTACT. DRAINAGE OUTLINED. IV ASSESSED, WNL. CALL LIGHT WITHIN REACH. NO OTHER NEEDS AT THIS TIME.
--- NOTE | 2023-07-07 22:10 | NUR ---
PT DID 10 LAPS AROUND THE UNITS. PT WAS STEADY ON HIS FEET AND USED A FWW. STANDBY ASSISSTANCE NEEDED. PT HANDLED WELL. AFTERWARDS PT DECIDED TO REST IN BED, PT STATED HE WOULD PUT HIS CPAP ON WHEN HE WENT TO SLEEP. NO REPORTS OF PAIN AT THIS TIME. ALL QUESTIONS AND CONCERNS ADDRESSED. CALL LIGHT WITH IN REACH, BED LOWERED AND LOCKED, NON-ORDER PACKER FOOT WEAR IN PLACE.
--- NOTE | 2023-07-08 00:20 | NUR ---
PATIENT RESTING IN THE BED WITH EYES OPEN. WATER REFRESHED. CALL LIGHT WITHIN REACH. NO OTHER NEEDS AT THIS TIME.
--- NOTE | 2023-07-08 01:15 | NUR ---
PATIENT CALLED TO USE THE BR. Pt SBA TO BR. Pt BACK TO BED. CALL LIGHT WITHIN REACH. NO OTHER NEEDS AT THIS TIME.
--- NOTE | 2023-07-08 03:18 | NUR ---
PATIENT RESTING IN BED WITH EYES CLOSED. RESP OBSERVED. CPAP ON. CALL LIGHT WITH IN REACH. NO OTHER NEEDS AT THIS TIME.
[2023-07-08 05:10] VITALS: BP 111/76
--- NOTE | 2023-07-08 05:15 | NUR ---
ASSESSMENT AND VITAL SIGNS DONE. PATIENT UP TO THE BATHROOM. SBA/INDEPENDENT IN RM. SCHEDULED MEDICATION ADMINISTERED. CALL LIGHT WITHIN REACH. NO OTHER NEEDS AT THIS TIME.
--- NOTE | 2023-07-08 07:34 | NUR ---
REPORT RECIEVED FROM ACCOUNT OFFICER RN. PATIENT RESTING WITH EYES CLOSED. RESPIRATIONS ARE EVEN AND UNLABORED. CALL LIGHT AND PERSONAL BELONGINGS ARE WITHIN REACH.
--- NOTE | 2023-07-08 08:20 | NUR ---
PATIENT FULL ASSESSMENT COMPLETE. IV SITES FLUSHED WITH 10 ML NS, PATIENT STATED NO PAIN OR DISCOMFORT WHILE FLUSHING. HEART SOUNDS NORMAL S1 AND S2. RADIAL AND PEDAL PULSES STRONG. CAPILLARY REFILL LESS THAN 3 SECONDS ON HANDS AND FEET. LUNG SOUNDS CLEAR. PATIENT SAID THEY ARE IN NO PAIN AND NO EXPERIENCING ANY NUMBNESS OR TINGLING. ABDOMINAL ASSESSMENT SHOWED PURULENT DRAINAGE IN THE MIGUELITO DRAIN. PATIENT STATED IT HAS NOT BEEN DRAINING VERY MUCH AND THAT THE DRAINAGE HAS NOT CHANGED. WOUND VAC IN PLACE AND DRAINAGE IS BROWN IN COLOR. OUTLINE ON THE WOUND DRESSING WHERE LEAKAGE WAS NOTED. PATIENT AGAIN STATED THAT THIS HAS NOT CHANGED. ILEOSTOMY BAG IN PLACE. PATIENT EXPRESSED SEEING THE VASALINE PACKING WHILE DUMPING THE BAG. IV SITE IN THE RIGHT HAND AND RIGHT FOREARM. PATIENT GOT UP AND USED THE BATHROOM. PATIENT NOW SITTING IN THE RECLINER EATING BREAKFAST. 0800 AND 0900 MEDICATIONS GIVEN PER THE EMAR. PATIENT STATED NO FURTHER NEEDS AT THIS TIME. CALL LIGHT AND PERSONAL BELNGINGS ARE WITHIN REACH.
[2023-07-08 10:06] VITALS: BP 114/75
--- NOTE | 2023-07-08 10:07 | NUR ---
PATIENT VITAL SIGNS WITHIN NORMAL RANGE. VITAL SIGNS DOCUMENTED IN THE CHART. PATIENT INTAKE AND OUTPUT VALUES DOCUMENTED. PATIENT BREAKFAST TRAY COMPLETE. WARM BLANKET GIVEN TO PATIENT UPON REQUEST. PATIENT STATED NO FURTHER NEEDS AT THIS TIME. CALL LIGHT AND PERSONAL BELONGINGS ARE WITHIN REACH.
--- NOTE | 2023-07-08 11:07 | NUR ---
PATIENT AMBULATED TO THE BATHROOM. FRESH ICE WATER GIVEN TO PATIENT. CALL LIGHT AND PERSONAL BELONGINGS ARE WITHIN REACH.
--- NOTE | 2023-07-08 11:50 | NUR ---
Spoke with Wilfrid, he is pleasant as always. Denies needs. States he is waiting to speak with as he is unsure what the next step is. He does states Dr. Hernandez explained options to him. He does states he is feeling significantly better for the last two days.
--- NOTE | 2023-07-08 11:56 | NUR ---
1200 MEDICATIONS ADMINISTERED PER THE EMAR. PATIENT FAMILY AT THE BEDSIDE. 300 ML YELLOW URINE. 200 ML OF OSTOMY DRAINAGE. DRAINAGE IS BROWN AND THICK IN CONSISTENCY. PATIENT STATED NO FURTHER NEEDS AT THIS TIME. CALL LIGHT AND PERSONAL BELONGINGS ARE WITHIN REACH.
--- NOTE | 2023-07-08 13:16 | NUR ---
CONNECTED WITH IN HALLWAY. SEEMED TO BE IN GOOD SPIRITS. DENIED NEEDS. PRAYED FOR CLARITY OF DIAGNOSIS AND WISDOM IN INTERVENTION.
--- NOTE | 2023-07-08 13:33 | NUR ---
PATIENT SITTING UPRIGHT IN THE RECLINER. PATIENT OSTOMY DRAINAGE AND URINE ACCOUNTED FOR. PATIENT GIVEN TWO NEW FRESH CUPS OF WATER. PATIENT STATED NO FURTHER NEEDS AT THIS TIME. PATIENT CALL LIGHT AND PERSONAL BELONGINGS ARE WITHIN REACH.
[2023-07-08 14:14] VITALS: BP 110/74
--- NOTE | 2023-07-08 14:17 | NUR ---
PATIENT SITTING UPRIGHT IN THE CHAIR. PATIENT VITAL SIGNS AND INTAKE AND OUTPUT VALUES COLLECTED AND DOCUMENTED IN THE CHART. PATIENT STATED NO FURTHER NEEDS AT THIS TIME. CALL LIGHT AND PERSONAL BELONGINGS ARE WITHIN REACH.
--- NOTE | 2023-07-08 16:43 | NUR ---
DRESSING CHANGE COMPLETE. CAME TO BEDSIDE TO OBSERVE THE WOUND. WOUND VAC RE DRESSED AND SUCTION TURNED ON TO 120 MMHG. MIGUELITO DRAIN DRESSING CHANGED, NEW GAUZE APPLIED WITH OPSITE ON TOP. COLOSTOMY DRESSING CHANGED AND NEW ONE REAPPLIED. PATIENT TOLERATED WELL AND DID NOT EXPRESS CONCERN WITH NEW APPLICATION. PATIENT STATED NO FURTHER NEEDS AT THIS TIME. CALL LIGHT AND PERSONAL BELONGINGS ARE WITHIN REACH.
[2023-07-08 18:11] VITALS: BP 108/73
--- NOTE | 2023-07-08 18:52 | NUR ---
PATIENT SITTING UPRIGHT IN THE RECLINER. PATIENT PROVIDED WITH FRESH WATER. MIGUELITO DRAIN AND URINAL EMPTIED. PATIENT STATED NO FURTHER NEEDS AT THIS TIME. CALL LIGHT AND PERSONAL BELONGINGS ARE WITHIN REACH.
--- NOTE | 2023-07-08 19:58 | NUR ---
ORDER RECIEVED FROM ROSALINDA MYLES AND CHAO MYLES. PATIENT RESTING IN BED. CALL LIGHT WITH IN REACH. NO OTHER NEEDS AT THIS TIME.
[2023-07-08 20:47] VITALS: BP 105/75
--- NOTE | 2023-07-08 20:55 | NUR ---
ASSESSMEMT AND VITAL SIGNS DONE. SCHEDULED MEDICATION ADMINISTERED, SEE MAR. PATIENT STATES HE WANTS TO GO FOR A WALK. Pt INFORMED WE WILL BE BACK TO WALK HIM. WOUND VAC ADMINISTERING THERAPY AT 120. CALL LIGHT WITHIN REACH. NO OTHER NEEDS AT THIS TIME.
--- NOTE | 2023-07-08 22:40 | NUR ---
SCHEDULED MEDICATIONS ADMINISTERED, SEE OCT. IV'S ASSESSED, WNL. Pt WOUND VAC DRESSING REINFORCED WITH OPSITE. Pt UP TO AMBULATE IN LAW WITH HEATHER MYLES.
--- NOTE | 2023-07-08 22:45 | NUR ---
Patient requested and with SBA ambulated chacon (6 loops). Tolerated well, denies any discomfort, wound vac intact, Assist patient into bed, lights out and call light within reach.
--- NOTE | 2023-07-09 01:45 | NUR ---
PATIENT IN BED RESTING WITH EYES CLOSED. RESP OBSERVED, EVEN AND UNLABORED. CALL LIGHT WITHIN REACH. CPAP ON
--- NOTE | 2023-07-09 04:02 | NUR ---
PATIENT UP TO RESTROOM. INDEPENDENT IN . CALL LIGHT WITHIN REACH.
[2023-07-09 04:16] VITALS: BP 106/76
--- NOTE | 2023-07-09 04:24 | NUR ---
PATIENT CALL TO HAVE URINAL EMPTIED. ASSESSMENT AND VITAL SIGNS DONE. WATER REFRESHED. Pt INDEPENDENT IN RM. CALL LIGHT WITHIN REACH.
[2023-07-09 05:29] LABS: BASOPHILS 0.8 % (0-2); EOSINOPHILS 5.1 % (0-6); HEMOGLOBIN 10.5 g/dL (12.0-18.0); LYMPHOCYTES 15.7 % (24-44); MCH 28.4 (27-36); MCHC 32.6 g/dl (30-36); MCV 87.1 fl (81-99); MONOCYTES 7.3 % (0-12); NEUTROPHILS 71.1 % (39-80); PLATELET COUNT 168 K/uL (140-440); RBC 3.68 M/ul (4.3-5.7); RDW 17.1 (10.5-15.0)
--- NOTE | 2023-07-09 06:15 | NUR ---
SCHEDULED MEDICATIONS ADMINITERED PER ORDER, SEE MAR. PATIENT UP TO BR, INDEPENDENT IN RM. CALL LIGHT WITHIN REACH.
[2023-07-09 06:23] LABS: ALBUMIN 2.8 g/dL (3.4-5.0); ALBUMIN/GLOBULIN RATIO 0.78 (1.1-2.4); ANION GAP 13.8 (7-21); BILIRUBIN, TOTAL 0.3 ng/dL (0.2-1.0); BUN/CREATININE RATIO 15.55 (6.0-28.6); CREATININE, SERUM 1.35 mg/dL (0.70-1.30); POTASSIUM 3.8 mmol/L (3.5-5.1); PROTEIN, TOTAL 6.4 g/dL (6.4-8.2)
--- NOTE | 2023-07-09 06:39 | NUR ---
holger in radiology informed of order to use diluted barium for sbft.
--- NOTE | 2023-07-09 07:27 | NUR ---
REPORT RECEIVED FROM FROM NIGHT RN - POC REVIEWED. PT RESTING IN BED WITH CALL LIGHT IN REACH.
[2023-07-09 08:38] LABS: CALCIUM 8.6 mg/dL (8.5-10.1)
--- NOTE | 2023-07-09 08:57 | NUR ---
ABX ADMINISTERED - PT TO LEAVE FLOOR RIGHT NOW FOR SBFT STUDY - HOLDING AMLODAPINE UNTIL RETURN WHEN VS CAN BE ASSESSED. MIGUELITO, WOUND VAC AND OSTOMY ALL VISUALIZED WITHOUT CONCERN/CHANGE AT THIS TIME.
--- NOTE | 2023-07-09 09:08 | NUR ---
PATIENT IN WHEELCHAIR GOING TO THE X-RAY DEPARTMENT FOR SMALL BOWEL FOLLOW THROUGH. PATIENT CHEERFUL AND WAITING FOR RESULTS FROM X-RAY.
--- NOTE | 2023-07-09 10:49 | NUR ---
PT REMAINS IN RADIOLOGY DEPT
--- NOTE | 2023-07-09 11:06 | NUR ---
PT INDISPOSED. DID NOT DISTURB. PRAYED SILENTLY FOR DISCERNMENT OF TREATMENT PATH AND BAPTISM OF PROPER BODILY FUNCTION.
[2023-07-09 11:39] VITALS: BP 110/74
--- NOTE | 2023-07-09 11:48 | NUR ---
PT BACK FROM RADIOLOGY - VS WNL - AM MEDS ADMINISTERED ALTHOUGH LATE R/T BEING OFF FLOOR. OSTOMY EMPTIED BY PT, NOTED TO BE LEAKING AROUND WAFER AND UNDER WOUND VAC OPSITE. WILL NEED REDRESSED WHEN BACK FROM FINAL IMAGING IN ONE HOUR.
[2023-07-09 13:30] VITALS: BP 113/75
--- NOTE | 2023-07-09 15:10 | NUR ---
RN AT BEDSIDE TO PREFORM COMPLETE DRESSING CHANGE OF WOUND VAC AND OSTOMY APPLIANCE R/T OSTOMY LEAKING INTO WOUND VAC SITE UNDER TEGADERM. . SKIN DISTAL TO MIDLINE WOUND RED AND EXCORIATED FROM STOOL HELD TO THAT SITE FROM LEAK. ADVANCED SKIN PROTECTANT APPLIED AFTER CLEANSING AND AIR DRYING. APPLICATION ASSISTED BY ASHLEY WOUND RN. PT TOLERATED WITH MODERATE PAIN, TYLENOL ADMINISTERED.
--- NOTE | 2023-07-09 15:13 | NUR ---
UR NOTE [facility] GENERAL SURGERY ([facility]) 07/07/23 VARIANCE STAGE 1 07/08/23 VARIANCE STAGE 1
[2023-07-09 18:04] VITALS: BP 105/72
--- NOTE | 2023-07-09 20:42 | NUR ---
Report provided by day shift RN @ 1920. Patient sitting up in chair playing card game on phone. Denies pain, ostomy, MIGUELITO and wound vac clean, dry and intact, VSS, Ostoomy with output and flatus, MIGUELITO secured and bulb compressed, call lith within reach.
[2023-07-09 20:53] VITALS: BP 111/76
--- NOTE | 2023-07-09 21:16 | NUR ---
FILLED CPAP HUMIDIFIER.
--- NOTE | 2023-07-09 22:20 | NUR ---
Ambulated 8 loops with patient. Tolerated well, Patient going to bed now, no complaints. call light within reach.
--- NOTE | 2023-07-10 00:11 | NUR ---
Patient resting with eyes closed, appears comfortable, no noted distress, wound vac intact, RR-18, call light in reach.
--- NOTE | 2023-07-10 02:18 | NUR ---
Patient continues to sleep, has had no needs thus far, appears comfortable with no noted distress, RR - 18, wound vac intact, call light within reach.
--- NOTE | 2023-07-10 03:48 | NUR ---
Patient awake, called to have wound vac looked at, flashing low battery even though it is pulgged in, checked all connections, Machine not causing vacuum. Will allow it to charge for 30-60minutes and re attempt to turn it on. Dressing to abd intact and sealed. Patient is going to try and go back to sleep. lights out, call light in reach.
[2023-07-10 06:00] VITALS: BP 108/71
--- NOTE | 2023-07-10 06:19 | NUR ---
Patient sleeping between care, VSS, wound vac still not working appropriately, will report this off to day shift to evaluate for the possible need for a replacement. Patient denies discomfort. call light in reach.
--- NOTE | 2023-07-10 07:12 | NUR ---
RECEIVED CALL FROM DR PRO. VERBAL ORDERS GIVEN TO MAKE PT NPO NOW AND GIVE 2 FLEETS ENEMAS AT 1000 TODAY. ORDERS REPEATED BACK.
--- NOTE | 2023-07-10 07:30 | NUR ---
REPORT RECEIVED FROM NIGHT RN - PT RESTING IN BED AWAKE. WOUND VAC FAILED OVER NIGHT. MD UPDATED VIA TELEPHONE, INPATIENT WOUND VAC TO BE APPLIED TO CONTINUE THERAPY - COMPLETED. MD REPORTS PLAN TO PREFORM LOWER SCOPE AND FLEETS ENEMA X2 TO BE PREFORMED AT 1000. PT UPDATED ON PLAN. PLACED NPO.
--- NOTE | 2023-07-10 09:44 | NUR ---
RN IN ROOM TO ADMINISTER ENEMAS - PT REQUESTS TO ADMINISTER BY SELF IN BATHROOM.
[2023-07-10 10:11] VITALS: BP 103/80
--- NOTE | 2023-07-10 10:28 | NUR ---
ENEMA ADMINISTRATION COMPLETE - CLEAR YELLOW OUTPUT WITH SCANT AMOUNT OF LULY BLOOD. PT TOLERATED WELL WITHOUT PAIN OR DIFFICULTY. AM MEDS ADMINISTERED WITH SMALL SIP OF WATER.
--- NOTE | 2023-07-10 12:44 | NUR ---
PT ASSISTED BACK TO BED FROM BATHROOM - WOUND VAC REMAINS INTACT DELIVERING THERAPY. PT DENIES COMPLAINTS. AWAITING PROCEDURE. CALL LIGHT AND BELONGINGS IN REACH.
--- NOTE | 2023-07-10 13:30 | NUR ---
PT REMAINS RESTING IN BED AWAITING PROCEDURE. WOUNDVAC DRESSING INTACT WITHOUT LEAK. MIGUELITO DRAIN OUTPUT DARK AND PURLUANT DRAINAGE.
[2023-07-10 14:05] VITALS: BP 104/72
--- NOTE | 2023-07-10 14:50 | NUR ---
PT OFF FLOOR TO OR
--- NOTE | 2023-07-10 15:33 | NUR ---
07/10/23 1533 Destiny Norman 1528: PT ARRIVES TO PACU AWAKE AND ALERT. NO COMPLAINTS OF PAIN OR NAUSEA.
--- NOTE | 2023-07-10 16:00 | NUR ---
PT RETURNS FROM OR - REPORT RECEIVED. PT ALERT AND OREINTED IN BED. WOUND VAC FOUND TO BE SATURATED WITH BILE/STOOL FROM ILIOSTOMY AND VACUUM LOST, WITH BILE LEAKING DOWN LEFT SIDE OF PT. FULL TAKE DOWN OF WOUND VAC AND OSTOMY REQUIRED AND REPLACED. PT DENIES PAIN AT THIS TIME.
[2023-07-10 16:05] VITALS: BP 99/59
[2023-07-10 17:07] VITALS: BP 120/72
--- NOTE | 2023-07-10 17:34 | NUR ---
POST OP VITALS STABLE - PT UP TO CHAIR TO EAT DINNER.
--- NOTE | 2023-07-10 19:52 | NUR ---
REPORT RECIEVED FROM DAY SHIFT RN. PATIENT RESTING IN CHAIR. CALL LIGHT IN REACH. WHITE BOARD UPDATED.
--- NOTE | 2023-07-10 20:36 | NUR ---
CPAP HUMIFIFIER FILLED AND READY TO GO.
[2023-07-10 21:25] VITALS: BP 104/69
--- NOTE | 2023-07-10 21:25 | NUR ---
PATIENT SITTING UP IN CHAIR. VS AND I&Os OBTAINED AND DOCUMENTED. MIGUELITO DRAIN EMPTIED. OSTOMY CARE COMPLETED INDEPENDENTLY. EVENING MEDICATION ADMINSITERED, SEE MAR. IVs FLUSHED AND WNL. ASSESSMENT COMPLETE. BOWEL TONES ACTIVE. PATIENT STATES PAIN IN THE RIGHT SHOULDER, SCHEDULED MEDICATION GIVEN. FRESH WATER PROVIDED. PATIENT HAS NO FURTHER NEEDS. CALL LIGHT IN REACH. WOUND VAC IN PLACE AND DELIVERING THERAPY AT 120. ALL DRESSING IN ABD ARE C/D/I.
--- NOTE | 2023-07-10 22:01 | NUR ---
PT WALKED 6 LAPS AROUND NURSING STATION. TOLERATED WELL. PT BACK IN BED. WARM BLANKETS PROVIDED FOR COMFORT. NO OTHER NEEDS AT THIS TIME.
--- NOTE | 2023-07-10 22:17 | NUR ---
ROUNDING ON PATIENT. THIS RN HELPED ADJUST PATIENT IN BED. TWO WARM BLANKETS PROVIDED. CALL LIGHT IN REACH. NO FURHTER NEEDS.
--- NOTE | 2023-07-11 00:02 | NUR ---
PATIENT RESTING IN BED ON BACK. PATIENT AWAKE ON TABLET. NO FURTHER NEEDS. CALL LIGHT IN REACH.
--- NOTE | 2023-07-11 01:12 | NUR ---
CALL LIGHT ANSWERED. FRESH WATER REQUESTED AND PROVIDED. NO FURTHER NEEDS. CALL LIGHT IN REACH.
--- NOTE | 2023-07-11 02:32 | NUR ---
ROUNDING ON PATIENT. PATIENT RESTING IN BED ON BACK WITH EYES CLOSED. RESPIRATIONS EVEN AND UNLABORED. CALL LIGHT IN REACH.
--- NOTE | 2023-07-11 04:20 | NUR ---
PATIENT IS RESTING IN BED WITH EYES CLOSED, RR 15. CALL LIGHT IN REACH. PT IS WEARING HOME CPAP.
[2023-07-11 05:44] LABS: BASOPHILS 0.6 % (0-2); EOSINOPHILS 3.3 % (0-6); HEMATOCRIT 36.7 % (35.0-50.0); HEMOGLOBIN 11.9 g/dL (12.0-18.0); LYMPHOCYTES 11.9 % (24-44); MCH 28.5 (27-36); MCHC 32.6 g/dl (30-36); MCV 87.5 fl (81-99); MONOCYTES 5.8 % (0-12); NEUTROPHILS 78.4 % (39-80); PLATELET COUNT 195 K/uL (140-440); RBC 4.19 M/ul (4.3-5.7); RDW 16.6 (10.5-15.0)
[2023-07-11 06:07] VITALS: BP 102/72
--- NOTE | 2023-07-11 06:27 | NUR ---
PATIENT RESTING IN BED. PATIENT AWAKENS EASILY. VS AND I&Os OBTAINED AND DOCUMENTED. ASSESSMENT COMPLETE. BOWEL TONES ACTIVE. PATIENT STATES NO PAIN AT THIS TIME. SCHEDULED MEDICATION ADMINISTERED, SEE MAR. PATIENT HAS NO FURHTER NEEDS. CALL LIGHT IN REACH.
--- NOTE | 2023-07-11 07:20 | NUR ---
PT REPORT RECEIVED FROM RNS AUDRA AND GARRETT. PT IS RESTING IN BED, AWAKE, A&O X4, STATES HE IS ABOUT TO GET UP AND MOVE TO THE CHAIR THIS MORNING AND REQUESTS FRESH ICED WATER AND WARM BLANKETS. CALL LIGHT IN REACH.
[2023-07-11 10:02] VITALS: BP 107/69
--- NOTE | 2023-07-11 11:01 | NUR ---
REPORT FROM JADEN MYLES,
--- NOTE | 2023-07-11 11:26 | NUR ---
pt sitting up in chair with no complaints, call light in reach.
--- NOTE | 2023-07-11 12:30 | NUR ---
in room pt eating meal up in chair - denies needs, emptied urinal for 150 ml and ostomy for 150ml - pt left in bathroom as he empties on own, did not visualize valentin/wound vac site as pt was eating meal. call light in reach.
--- NOTE | 2023-07-11 13:19 | NUR ---
dr barker in with pt who is in chair, valentin wnl, wound vac to suction 120 -wnl, ostomy wnl draining stool. call light in reach - denies needs, cont. low fiber diet.
[2023-07-11 13:50] VITALS: BP 105/74
--- NOTE | 2023-07-11 14:05 | OR ---
[facility] [address], [place] [address] Signed DATE OF OPERATION: 07/10/2023 SURGEON: Michael Pro MD PREOPERATIVE DIAGNOSIS: Ileorectal anastomosis with small anastomotic leak; proximal ileal diversion. POSTOPERATIVE DIAGNOSIS: Ileorectal anastomosis with small anastomotic leak; proximal ileal diversion. PROCEDURE: Flexible sigmoidoscopy with application of hemoclips to presumed anastomotic leak site. ANESTHESIA: Intravenous sedation fentanyl 100 mcg and Versed 1 mg. INDICATION: This 67-year-old white man has a complex past history including subtotal colectomy with side-to-end ileorectal anastomosis and currently a proximal diverting loop ileostomy. He has a persistent leak at the ileorectal anastomotic site based on recent contrast studies including antegrade Gastrografin infusion through the distal efferent diverting loop ileostomy. He is now to undergo limited colonoscopy and Endoclip application to the anastomotic leak site if possible. Risks of bleeding, infection, worsening of his situation, and so forth were reviewed in detail. He understands and wished to proceed. FINDINGS: The ileal mucosa was quite healthy as was the rectum itself. The area of actual leak was uncertain. In the area, a possible leak was identified and hemoclips applied. PROCEDURE IN DETAIL: The patient was brought to the endoscopy suite and placed in lateral decubitus position given intravenous sedation to the point of slurred speech and nystagmus with full cardiopulmonary monitoring. Digital rectal examination showed external hemorrhoids. Olympus video colonoscope was passed in the rectum and manipulated up to approximately 15-20 cm where the ileorectal anastomosis was easily identified. It appeared to be widely patent. Scope was passed into the ilium without problem. The proximal ileum was normal. The scope was withdrawn and anastomotic evaluation undertaken showing some retained silk sutures. An area suggestive of the possible small leak was identified and Electronically Signed By: MICHAEL PRO MD 07/11/23 1405 PATIENT NAME: DAVID POTTS OPERATIVE REPORT DATE OF : 57 REPORT #: [id number] PHYSICIAN: MICHAEL PRO MD PCP: Tristan Carrera DO REPORT IS CONFIDENTIAL AND NOT TO BE RELEASED WITHOUT AUTHORIZATION [facility] [address], [place] [address] Signed application of large hemoclips undertaken. Irrigation was undertaken. The scope was withdrawn and removed. The patient was taken to the recovery room in good condition. CONCLUDING DIAGNOSIS: Uncertain if effective occlusion of the endoluminal leak aspect with the hemoclips at this point. We will assess his clinical response to this. Consideration will be made for EndoVac application as it is ideally suited to his situation. MD ARIA Mane/MODL /[id number] cc: Dr. Carrera Copies: ~ Electronically Signed By: MICHAEL PRO MD 07/11/23 1405 PATIENT NAME: DAVID POTTS OPERATIVE REPORT DATE OF : 57 REPORT #: [id number] PHYSICIAN: MICHAEL PRO MD PCP: Tristan Carrera DO REPORT IS CONFIDENTIAL AND NOT TO BE RELEASED WITHOUT AUTHORIZATION
[2023-07-11 17:05] VITALS: BP 114/79
--- NOTE | 2023-07-11 18:08 | NUR ---
abx po given after pt ate meal - 100% intake, pt up in chair watching show, denies needs, call light in reach.
--- NOTE | 2023-07-11 18:22 | NUR ---
low fiber diet education provided printed to pt and almond milk to fridge with pt label on for meal in am, pt aware and thankful - denies needs.
--- NOTE | 2023-07-11 19:30 | NUR ---
REPORT RECIEVED FROM DAY SHIFT RN. PATIENT SITTING IN THE CHAIR ON TABLET. NO FURTHER NEEDS. CALL LIGHT IN REACH. WHITE BOARD UPDATED.
[2023-07-11 21:28] VITALS: BP 104/72
--- NOTE | 2023-07-11 21:30 | NUR ---
PATIENT SITTING IN CHAIR ON TABLET. VS AND I&Os OBTAINED AND RECORDED. MIGUELITO DRAIN EMPTIED & RECORDED. PATIENT INDEPENDENTLY EMPTIED OSTOMY AND THIS RN RECORDED THE OUTPUT. ASSESSMENT COMPLETE. BOWEL TONES ACTIVE. IVs FLUSHED AND WNL. LUNG SOUNDS WNL BILAT. PATIENT STATES 2/10 PAIN IN LOWER BACK. SCHEDULED MEDICATION ADMINISTERED. FRESH WATER PROVIDED. PATIENT STATES NO FURTHER NEEDS. CALL LIGHT IN REACH. PATIENTS WOUND DRESSING C/D/I AND SOUND VAC SUCTION IS AT 120.
--- NOTE | 2023-07-11 22:27 | NUR ---
PATIENT UP TO WALK THE LAW INDEPENDENTLY WITH CANE.
--- NOTE | 2023-07-11 22:55 | NUR ---
PATIENT BACK TO BED AFTER WALKING 12 LAPS AROUND THE MED SURG FLOOR INDEPENDENTLY WITH A CANE. PATIENTS WOUND VAC AND HEARING AIDS PLUGGED INTO THE WALL. WARM BLANKETS PROVIDED. NO FURTHER NEEDS. CALL LIGHT IN REACH.
--- NOTE | 2023-07-11 23:48 | NUR ---
PATIENT IN BED ON BACK USING IPAD. PATIENT STATES HE HAS NO CURRENT NEEDS. CALL LIGHT IS IN REACH.
--- NOTE | 2023-07-12 02:35 | NUR ---
PATIENT RESTING IN BED ON BACK WITH EYES CLOSED. RESPIRATIONS EVEN AND UNLABORED. CALL LIGHT IN REACH.
--- NOTE | 2023-07-12 03:40 | NUR ---
PATIENT RESTING IN BED ON BACK WITH EYES CLOSED. RESPIRATIONS EVEN AND UNLABORED. CALL LIGHT IN REACH.
[2023-07-12 05:14] VITALS: BP 115/74
[2023-07-12 05:21] VITALS: BP 100/52
--- NOTE | 2023-07-12 05:32 | NUR ---
PATIENT RESTING IN BED WITH EYES CLOSED. AWAKENS EASILY. VS AND I&Os OBTAINED AND RECORDED. SCHEDULED MEDICATION ADMINISTERED. ROOM CLEANED AND WHITE BOARD UPDATED. PATIENT STATES NO PAIN OR NAUSEA AT THIS TIME. PATIENT HAS NO FURTHER NEEDS. CALL LIGHT IN REACH. ASSESSMENT COMPLETED. BOWEL TONES ACTIVE.
--- NOTE | 2023-07-12 07:30 | NUR ---
report from Phillip cabral, pt resting in bed, call light in reach.
--- NOTE | 2023-07-12 08:11 | NUR ---
pt awakened cpap removed and amb to bathroom for am care - then to . call light in reach.
--- NOTE | 2023-07-12 10:20 | NUR ---
SPOKE WITH REP AT [facility]. PATIENT RECENTLY HAD NEW WOUND VAC SHIPPED TO HIM IN AND EARLY MAY. AT THIS THEY ARE UNABLE TO SEND A NEW WOUND VAC THEY NEED THE PREVIOUS ONES TO BE SHIPPED BACK. REP SUGGEST OVERNIGHT SHIPPMENT OF A POWER CORD TO THE PATIENT TO SEE IF THIS WILL FIX THE ISSUES AND HAVE THE PATIENT SHIPPED THE VACS BACK ONCE HE IS DISCHARGED. PATIENT NOTIFIED OF THE PLAN. ADVISED THAT I WILL CONTINUE TO SEARCH OUR FACILITY FOR REPLACEMENT CORD JUST IN CASE.
[2023-07-12 10:30] VITALS: BP 103/70
--- NOTE | 2023-07-12 11:56 | NUR ---
pt up in chair - reading paper - denies needs, call light in reach.
--- NOTE | 2023-07-12 13:48 | NUR ---
PT REMAINS IN GOOD SPIRITS. HOPEFUL FOR MORE COMPLETE RECOVERY. EXERCISED MINISTRY OF PRESENCE PT TALKED OF MUSIC AND OPPORTUNITIES TO PLAY. PRAYED FOR [employer] OF HEALTH.
[2023-07-12 14:05] VITALS: BP 114/77
--- NOTE | 2023-07-12 14:06 | NUR ---
in for rounds, and po meds (emar) refill ice water. pt up in no changes to abd wounds x3 valentin, ostomy and wound vac all wnl. call light in reach.
[2023-07-12 17:46] LABS: PREALBUMIN 31.9 mg/dL (20.0-40.0)
[2023-07-12 18:12] VITALS: BP 110/77
--- NOTE | 2023-07-12 18:50 | NUR ---
denies needs, no changes call light in reach - eating meal well tonjoe - visited with dr barker this pm.
--- NOTE | 2023-07-12 19:43 | NUR ---
REPORT RECIEVED FROM DAY SHIFT RN. PATIENT SITTING IN CHAIR. PATIENT STATES HAVING NEASUA. PRN NAUSEA MEDICATION ADMINISTERED PER PATIENT REQUEST, SEE MAR. PATIENT HAS NO FURTHER NEEDS. CALL LIGHT IN REACH.
[2023-07-12 21:39] VITALS: BP 103/71
--- NOTE | 2023-07-12 21:45 | NUR ---
PATIENT RESTING IN CHAIR ON TABLET. VS AND I&Os OBTAINED AND RECORDED. EVENING MEDICATIONS ADMINISTERED. IVs FLUSHED AND WNL. ASSESSMENT COMEPLETE. BOWEL TONES ACTIVE. PATIENT STATES NO PAIN AT THIS TIME. LUNG SOUNDS CLEAR BILAT. NO FURTHER NEEDS. CALL LIGHT IN REACH.
--- NOTE | 2023-07-12 22:29 | NUR ---
PATIENT IN UP TO WALK THE HALLS INDEPENDENTLY WITH CANE. PATIENT WALKED 10 LAPS AROUND MED SURG FLOOR. PATIENT BACK TO BED. 2 WARM BLANKETS AND CHICKEN BROTH PROVIDED. NO FURTHER NEEDS. CALL LIGHT IN REACH.
--- NOTE | 2023-07-13 00:15 | NUR ---
PATIENT RESTING IN BED USING TABLET. PATIENT STATES HE WOULD LIKE SOME MORE ICE WATER. ICE WATER PROVIDED. NO FURTHER NEEDS. CALL LIGHT IN REACH.
--- NOTE | 2023-07-13 01:41 | NUR ---
PATIENT RESTING IN BED ON BACK WITH EYES CLOSED. RESPIRATIONS EVEN AND UNLABORED. CALL LIGHT IN REACH.
--- NOTE | 2023-07-13 04:07 | NUR ---
PATIENT IN BED ON BACK, AWAKE, USING HIS TABLET. PATIENT REQUESTS MORE ICE WATER. ICE WATER PROVIDED. PATIENT HAS NO FURTHER NEEDS. CALL LIGHT IN REACH.
[2023-07-13 06:15] VITALS: BP 109/71
--- NOTE | 2023-07-13 06:24 | NUR ---
PATIENT RESTING IN BED. AWAKENS EASILY. VS AND I&Os OBTAINED AND RECORDED. ASSESSMENT COMPLETE. BOWEL SOUNDS PRESENT. PATIENT STATES NO PAIN. NO FURTHER NEEDS. CALL LIGHT IN REACH. SCHEDULED MEDICATION ADMINSITERED, SEE OCT.
--- NOTE | 2023-07-13 07:05 | NUR ---
REPORT RECIEVED FROM SPACE OFFICER RN. PATIENT IS LYING IN BED WITH EYES CLOSED. RESPIRATIONS ARE EVEN AND UNLABORED. PATIENT WITH CPAP ON. CALL LIGHT AND PERSONAL BELONGINGS ARE WITHIN REACH.
--- NOTE | 2023-07-13 09:29 | NUR ---
PATIENT FULL ASSESSMENT COMPLETE AND DOCUMENTED IN THE PATIENT CHART. 0800 AND 0900 MEDICATIONS ADMINISTERED PER THE EMAR. LUNGS SOUNDS CLEAR BILATERALLY IN ALL BASES. CARDIAC ASSESSMENT WITH NORMAL S1 AND S2. CAPILLARY REFILL LESS THAN THREE SECONDS. RADIAL AND PEDAL PULSES STRONG. MIGUELITO DRAIN LINE STRIPPED. MIGUELITO DRAINAGE IS SEROSANGUINOUS. WOUND VAC IN PLACE WITHOUT LEAKING. MIDLINE DRAINAGE IS GREEN. PATIENT SITTING UPRIGHT IN THE CHAIR AND WITH NO DISCOMFORT AT THIS TIME. PATIENT IV SITES ARE CLEAN, DRY, AND INTACT. IV SITES SALINE LOCKED. PATIENT DONE WITH BREAKFAST. PATIENT STATED NO FURTHER NEEDS AT THIS TIME. CALL LIGHT AND PERSONAL BEELONGINGS ARE WITHIN REACH.
--- NOTE | 2023-07-13 09:55 | NUR ---
PT ON PHONE. DID NOT INTERRUPT. PRAYED FOR [employer] OF HEALTH AND [employer]ING [employer].
[2023-07-13 10:08] VITALS: BP 99/70
[2023-07-13 13:39] VITALS: BP 100/67
[2023-07-13] MEDS ORDERED: AMOX TR-K CLV1 EACH PO (15:41)
[2023-07-13] MEDS ORDERED: ACETAMINOPHEN500 MG PO (15:41)
--- NOTE | 2023-07-13 16:09 | NUR ---
BOTH IVS ARE TAKING OUT. PATIENT JUST FINISHED HIS SHOWER.
[2023-07-13 16:14] VITALS: BP 115/80
--- NOTE | 2023-07-13 17:47 | NUR ---
PATIENT ABDOMINAL DRESSINGS CHANGED. WOUND VAC DRESSING REPLACED. STATUS OF WOUND IS IMPROVING AND THERE IS LESS REDNESS AROUND THE WOUND ITSELF. ILEOSTOMY BAG CHANGED. MIGUELITO DRAIN THE INTERNAL WHITE PART IS VISIBLE. NOTIFIED AND STATED THAT WAS VISIBLE WHEN HE LAST SAW THE PATIENT. MIGUELITO DRAINAGE IS SEROSANGUINOUS. PATIENT NOW SITTING UPRIGHT IN THE CHAIR EATING DINNER. 1700 AUGMENTIN ADMINISTERED PER THE EMAR. PATIENT DISCHARGE INSTRUCTIONS AND EDUCTION GIVEN. PATIENT STATED NO QUESTIONS. DISCHARGE PAPER SIGNED. PATIENT STATED NO FURTHER NEEDS AT THIS TIME. CALL LIGHT AND PERSONAL BELONGINGS ARE WITHIN REACH.
--- NOTE | 2023-07-14 08:15 | NUR ---
spoke with day surgery rn tom. pt has appointment on wednesday at 1300 to change wound vac.
--- NOTE | 2023-07-14 12:09 | DS ---
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 HISTORY OF PRESENT ILLNESS: This 67-year-old white man has a complex past medical history. He is admitted at this time, having not felt well for the past few days. He has had no fever or chills, but he is very slow for manifesting toxic problems from the past. The patient at the time of presentation has a diverting loop ileostomy. A wound VAC at the previous midline incision with a tunneled Raúl drain extending from the left abdomen subcutaneously through the midline fascia extending to the area of an ileoproctostomy, which in recent times has been noted to have had a small leak. He is admitted for further evaluation and care. Additional details can be found in the admission history and physical on July 05, 2023. PERTINENT PHYSICAL EXAMINATION: GENERAL: Alert and oriented white man, who did not look systemically toxic. NECK: Trachea is midline. CHEST: Clear. HEART: Regular. ABDOMEN: Nondistended. Midline incision showed a mucopurulent discharge. Ileostomy to the right of the midline appeared viable and functioning. There was a fibrinous material within the drain site at the midline and the drain extending to the pelvis had a mucopurulent discharge. There was no evidence of actual bile. 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 A CT scan was ordered with GI contrast to identify a possible proximal bile leak or enterocutaneous fistula separate and distinct from the ileoproctostomy leak that has been well-demonstrated already. On a clear liquid diet, his ostomy output remained bilious only. An initial CT scan of the abdomen with GI contrast was deferred in favor of a distal limb Gastrografin contrast study, which was performed on July 06, 2023. This showed a delayed presentation of a leak at the ileoproctostomy. A CT scan was subsequently performed with GI contrast proximally, which did not demonstrate a leak in the small bowel proximal to the diverting loop ileostomy. It was uncertain if perhaps the diverting loop ileostomy was not completely diverting after all. A low-fiber diet was initiated. Electronically Signed By: MICHAEL PRO MD 07/14/23 1209 PATIENT NAME: DAVID POTTS DISCHARGE SUMMARY DATE OF : 57 REPORT #: [id number] PHYSICIAN: MICHAEL PRO MD PCP: Tristan Carrera DO REPORT IS CONFIDENTIAL AND NOT TO BE RELEASED WITHOUT AUTHORIZATION [facility] [address], [place] [address] Signed The drainage effluent was milky, but not bilious and the wound VAC covering the midline did not show excessive output or true bile. Ileostomy proper continues to work without problem. In an attempt to ascertain if proximal enteric content was somehow transgressing the diverting loop ileostomy. Passing gauze was densely packed into the distal limb to obstruct downstream flow and assess output of the drain and the character of the material that was draining. Unfortunately, this was not effective at all and the gauze was withdrawn not much of it had been worked out of the distal limb itself. On July 09, 2023, he underwent a small-bowel follow-through by oral intake showing no sign of enteric leak or obstruction and no contrast in the efferent limb or in the rectum, thus confirming that the loop ileostomy was completely diverting. On July 10, 2023, he underwent flexible sigmoidoscopy per rectum identifying well the ileoproctostomy. There was no evidence of persistent diverticula (nor had there been thought to be any considering is reasonably certain that only rectum remained rather than any of the sigmoid colon). A distinct leak at the ileoproctostomy was not identified. However, an area that may in suggestive of it with inflammatory change was secured with hemoclips. Continued monitoring of his drain output showed a diminishment of the pelvic drain and no real change to the wound VAC . The patient's wound VAC device had a malfunction of cord and efforts were made to secure a substitute. In the meantime, a house model wound VAC device was applied to the midline wound. The patient was begun on a low-fiber diet, which he tolerated well. Strangely, the drain output was quite scant and certainly had no sign of fibrinous exudate particularly considering he was on a low-fiber diet. By day of discharge, he appeared to have less drainage from the pelvic drain. A change of the wound VAC at the midline showed no sign of worrisome output or true enteric contents and he is improved. He is discharged to home to maintain a low-fiber diet. DISCHARGE MEDICATIONS: Will be as usual except for the addition of Augmentin 500 mg p.o. b.i.d. #30. FOLLOW UP: I will follow up with him in the wound care clinic in the coming week and assess the effectiveness of hemoclips to the ileoproctostomy anastomosis as regards pelvic drain discharge. DISCHARGE DIAGNOSIS: 1. Known ileoproctostomy leak (small with persistent pelvic drainage). 2. Enteric drainage via midline incision, origin still uncertain, but less likely a Electronically Signed By: MICHAEL PRO MD 07/14/23 8241 PATIENT NAME: DAVID POTTS DISCHARGE SUMMARY DATE OF : 57 REPORT #: [id number] PHYSICIAN: MICHAEL PRO MD PCP: Tristan Carrera DO REPORT IS CONFIDENTIAL AND NOT TO BE RELEASED WITHOUT AUTHORIZATION [facility] [address], [place] [address] Signed proximal source of enterocutaneous fistula. 3. 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 4. History of glucose intolerance (resolved). 5. History of acute kidney injury (resolved). MD ARIA Mane/ALEXL /[id number] cc: Dr. Debi Neves [place] Copies: ~ Electronically Signed By: MICHAEL PRO MD 07/14/23 1209 PATIENT NAME: DAVID POTTS DISCHARGE SUMMARY DATE OF : 57 REPORT #: [id number] PHYSICIAN: MICHAEL PRO MD PCP: Tristan Carrera DO REPORT IS CONFIDENTIAL AND NOT TO BE RELEASED WITHOUT AUTHORIZATION
== END 2023-07-13 17:55 | disposition home or self-care (01) | DRG 395 ==
LOC: OPV-DS 13:05 → MS 14:31
PROVIDERS: ADMIT Surgery; ATTEND Surgery
PROC: 0W3P8ZZ Control Bleeding in Gastrointestinal Tract, Via Natural or Artificial Opening Endoscopic (ICD-10-PCS; principal; 2023-07-10 15:00)
DX: K63.2 Fistula of intestine (principal); E11.9 Type 2 diabetes mellitus without complications; K64.4 Residual hemorrhoidal skin tags; F03.90 Unspecified dementia, unspecified severity, without behavioral disturbance, psychotic disturbance, mood disturbance, and anxiety; E83.42 Hypomagnesemia; E86.0 Dehydration; Z90.49 Acquired absence of other specified parts of digestive tract; Z86.19 Personal history of other infectious and parasitic diseases; Z87.19 Personal history of other diseases of the digestive system; Z11.52 Encounter for screening for COVID-19
CPT/HCPCS: 36415; 74177; 74250; 76080; 80048; 80053; 81001; 83690; 83735; 84134; 85025; 97605; 99153; A9270; C9803; G0463; G0500; J2250; J2405; J3010; J3475; J7121; U0002

== ENCOUNTER 2023-09-16 10:11 | Day surgery (SDC) | payer MEDICARE, BC ==
[~2023-09-16] VITALS: Ht 172.7 cm; Wt 68.1 kg
[~2023-09-16 10:11] MED LIST changes: +IBLOOD GLUCOSE TEST STRIP 1 EA TEST VI PRN; +LACTATED RINGER'S 1,000 ML IV SCH; +LIDOCAINE HCL 1% 5 ML SDV INJ ONE; +MIDAZOLAM HCL 5 MG/5 ML VIAL IV PRN; +OZEMPIC0.25 MG/02 SUB-Q; +fentaNYL citrate 100 MCG/2 ML VIAL IV PRN
[2023-09-16] MEDS ORDERED: MIDAZOLAM HCL 5 MG/5 ML VIAL ONE (10:19)
[2023-09-16] MEDS ORDERED: fentaNYL citrate 100 MCG/2 ML VIAL ONE (10:19)
[2023-09-16] MEDS ORDERED: OMEGA-31000 MG PO (10:47)
[2023-09-16 11:04] VITALS: BP 92/63
--- NOTE | 2023-09-16 11:14 | NUR ---
[facility] [phone]
[2023-09-16] MEDS ORDERED: CEFAZOLIN SODIUM 2 GM/20 ML SYR IV ONE (11:15)
--- NOTE | 2023-09-16 12:51 | NUR ---
09/16/23 1251 Sheets,Claire 1241 PT ARRIVED TO PACU ON 3L VIA NC, RESP EVEN AND UNLABORED. PT WAKES TO VERBAL STIMULI AND DENIES CONCERNS. PT REORIENTED TO PACU AND EASILY FALLS BACK TO SLEEP WITH SMALL AMOUNT OF SNORING NOTED.
[2023-09-16 13:33] VITALS: BP 91/73
[2023-09-17 13:18] LABS: PREALBUMIN 23.2 mg/dL (20.0-40.0)
--- NOTE | 2023-09-20 14:57 | PATH ---
[facility] [address], [place] [address] Signed SPECIMEN(S): A SIGMOID COLON BIOPSY SPECIMEN(S): B ILEUM PROX TO ANASTAMOSIS BIOPSY SPECIMEN SOURCE: A. SIGMOID COLON BIOPSY B. ILEUM PROX TO ANASTAMOSIS BIOPSY CLINICAL HISTORY: Loop ileostomy FINAL PATHOLOGIC DIAGNOSIS: A. Sigmoid colon, biopsy: - Mild chronic active colitis. - Multiple fragments of granulation tissue with acute and chronic inflammation. - Negative for significant atypical epithelial features. B. Ileum proximal to anastomosis, biopsy: - Benign small bowel type mucosa with reactive features and focal acute epithelial and lamina propria inflammation (ileitis). - Negative for epithelial dysplasia or evidence of malignancy. JVR:cml MICROSCOPIC EXAMINATION: Histologic sections of all submitted blocks are examined by light microscopy. These findings, together with the gross examination, support the pathologic diagnosis. GROSS DESCRIPTION: A. The specimen, labeled and designated "Javid, R, " and designated on the requisition "colon, sigmoid biopsy," is received in formalin and consists of multiple jones-brown soft tissue fragments measuring 0.2 to 0.7 cm, all specimens are submitted entirely in (A1). B. The specimen, labeled and designated "Javid, R, " and designated on the requisition "ileum (NOS) proximal to anastomosis biopsy," is received in formalin and consists of one jones-brown soft tissue fragment measuring 0.7 cm, the specimen is submitted entirely in (B1). [facility] (under the direct supervision of a pathologist) The Gross Description was prepared using a voice recognition system. The report was reviewed for accuracy; however, sound-alike word errors, addition and/or deletions may occur. If there is any question about this report, please contact Client Services. PATIENT NAME: DAVID POTTS PATHOLOGY DATE OF : 57 REPORT #: [id number] PHYSICIAN: CHARLES PATHOLOGY PCP: Tristan Carrera DO REPORT IS CONFIDENTIAL AND NOT TO BE RELEASED WITHOUT AUTHORIZATION [facility] [address], [place] [address] Signed ADDITIONAL NOTES: Immunohistochemical and/or in situ hybridization studies if performed in this case included appropriate positive controls that reacted as expected. This test was developed and its performance characteristics determined by [facility]. It has not been cleared or approved by the U.S. Food and Drug Administration. The FDA has determined that such clearance or approval is not necessary. This test is used for clinical purposes. It should not be regarded as investigational or for research. [facility] is certified under the Clinical Laboratory Improvement Amendments of 1988 (CLIA) as qualified to perform high complexity clinical laboratory testing. PERFORMING LABORATORY: Technical component was performed by [facility], [address] [place] [id number] (CLIA# [id number]). Professional interpretation was performed by [facility], [address] [place] [id number] (CLIA#: [id number]). Diagnostician: Manuel Cardoso MD Pathologist Electronically Signed 09/20/2023 Copies: ~ PATIENT NAME: DAVID POTTS PATHOLOGY DATE OF : 57 REPORT #: [id number] PHYSICIAN: CHARLES PATHOLOGY PCP: Tristan Carrera DO REPORT IS CONFIDENTIAL AND NOT TO BE RELEASED WITHOUT AUTHORIZATION
--- NOTE | 2023-09-21 10:00 | OR ---
[facility] [address] [place], [place] [address] Signed DATE OF OPERATION: 09/16/2023 SURGEON: Michael Pro MD PREOPERATIVE DIAGNOSES: 1. Persistent ileorectal anastomotic leak. 2. History of subtotal colectomy with ileorectal anastomosis and proximal loop ileal diversion. 3. Pelvic drain. POSTOPERATIVE DIAGNOSIS: Drain through ileorectal anastomosis (fistulous opening). PROCEDURES: 1. Flexible sigmoidoscopy with withdrawal of Raúl drain. 2. Application of hemoclips to fistulous opening. 3. Reintroduction of new 7 mm flat Raúl drain with endoscopic evaluation confirming no evidence of malplacement of drain. ANESTHESIA: Intravenous sedation; fentanyl 100 mcg and Versed 7 mg. INDICATION: This 67-year-old white man is well known to me from the past and is a patient of Rios Brian of [place], [place]. He underwent emergency subtotal colectomy with end ileostomy and considerable amount of perioperative care, ultimately undergoing an ileorectal anastomosis with proximal loop ileostomy. He had anastomotic failure of the ileoproctostomy requiring the diverting loop ileostomy. He has since had persistence of the defect at the ileorectal anastomosis despite great efforts at optimization of his nutritional status. A Raúl drain was placed into the depths of the pelvis at the time of his exploration as had mucopurulent drainage which was unrelenting. He has had three imaging studies confirming persistence of the ileorectal anastomotic leak despite proximal diversion. It has generally been thought likely that he does have complete diversion, though admittedly he does have a loop ileostomy rather than an end ileostomy. A more recent finding of a drain that was placed into the depths of pelvis has shown mucopurulent and occasionally bile-stained fluid. Recent imaging including a Gastrografin enema continues to show an anastomotic leak. Mindful that by this point with proximal diversion an ileorectal anastomotic leak should heal, evaluation is needed once again. He last underwent open operation in April. Notably, the drain was placed in the pelvis was dislodged previously and was replaced by me at the bedside and Electronically Signed By: MICHAEL PRO MD 09/21/23 1000 PATIENT NAME: DAVID POTTS OPERATIVE REPORT DATE OF : 57 REPORT #: [id number] PHYSICIAN: MICHAEL PRO MD PCP: Tristan Carrera DO REPORT IS CONFIDENTIAL AND NOT TO BE RELEASED WITHOUT AUTHORIZATION [facility] [address] [place], [place] [address] and continues to drain some foul smelling fluid. He understands the risk of flexible sigmoidoscopy and various manipulations that may be required during the course of the procedure and wished to proceed. FINDINGS: He underwent Fleet's enema preparation. Despite that, there did appear to be bile staining of the ileal limb which extensively would be completely diverted. More notably the Raúl drain transgressed the fistulous opening, possibly accounting for persistence of the fistulous opening. The drain was withdrawn and the fistulous opening thus was well identified and surprisingly small. A clip that had been placed on previous encounter was remained in place. Sutures from prior anastomosis were visualized as well. There did not appear to be a granulomatous cavity or anything of that sort. The tunnel from which the drain exited, was rather small. Attempts at closure of the fistulous opening with clips were relatively unsuccessful initially. A larger clip was applied with apparent benefit. The drain itself was ultimately exchanged for a new Raúl drain, cut to a much shorter length and affirmed on sigmoidoscopy to not transgress the fistulous opening. DESCRIPTION OF PROCEDURE: The patient was brought to the endoscopy suite and placed in the lateral decubitus position, given intravenous sedation to the point of slurred speech and nystagmus with full cardiopulmonary monitoring. In lateral decubitus position, digital rectal examination was performed, which was normal. The Olympus video colonoscope was passed in the rectum. The ileoproctostomy anastomosis was encountered at approximately 12 cm from the anal verge. Notably, there did appear some bile staining mucosal material which would indicate incomplete (nontotal) diversion of the loop ileostomy upstream. The anastomotic area was easily identified and a double-barrel configuration of the ileum was noted. The scope was passed proximal to this showing minimal inflammatory change of the ileal loop. It was biopsied nevertheless to assess for ischemia, which was unlikely. The scope was then withdrawn to the area of anastomosis and quite obviously noted was a Raúl drain transgressing the ileoproctostomy anastomosis essentially stenting the area no doubt where the fistulous opening was. The suture that secured the drain was withdrawn under direct visualization. The opening was thus well identified and relatively small actually. A clip that had been applied previously was still in place. Several hemoclips were applied to the fistulous opening in hopes of stemming the egress of mucus to the drain. These were relatively ineffective in securing the tissue and therefore they were removed except for one that was well placed. A much larger hemoclip was applied to the area in question. Irrigation was undertaken. Biopsies were taken of the rectum as well. The scope was removed and the drain that had been withdrawn to an appropriate position extended outside the granulomatous midline incision in such a way that it would not likely hold suction and therefore the drain was removed, its length carefully observed and a new 7 mm flat Raúl drain cut to a shorter Electronically Signed By: MICHAEL PRO MD 09/21/23 1000 PATIENT NAME: DAVID POTTS TERESO OPERATIVE REPORT DATE OF : 57 REPORT #: [id number] PHYSICIAN: MICHAEL PRO MD PCP: Tristan Carrera DO REPORT IS CONFIDENTIAL AND NOT TO BE RELEASED WITHOUT AUTHORIZATION [facility] [address] [place], [place] [address] Signed configuration and reapplied into the fistulous tract to the depths of the pelvis. It was then secured to the skin with a 2-0 nylon suture and later an OpSite with sterile technique. Reintroduction of the sigmoidoscope was undertaken showing the anastomosis to have no evidence of the drain strutting over the fistulous opening at this point. The patient was then taken to the recovery room in good condition. MD ARIA Mane/BRIAN /[id number] cc: Rios Brian DO Copies: RIOS BRIAN DO ~ Electronically Signed By: MICHAEL PRO MD 09/21/23 1000 PATIENT NAME: KATLYNDAVID MICHEL OPERATIVE REPORT DATE OF : 57 REPORT #: [id number] PHYSICIAN: MICHAEL PRO MD PCP: Tristan Carrera DO REPORT IS CONFIDENTIAL AND NOT TO BE RELEASED WITHOUT AUTHORIZATION
== END 2023-09-16 13:57 | disposition home or self-care (01) ==
LOC: DS 10:11 → OPS 10:11 → DS 11:30 → OPS 13:57
PROVIDERS: ATTEND Surgery
PROC: 0DUP8JZ Supplement Rectum with Synthetic Substitute, Via Natural or Artificial Opening Endoscopic (ICD-10-PCS; principal; 2023-09-16 11:30)
DX: K91.89 Other postprocedural complications and disorders of digestive system (principal); Y83.8 Other surgical procedures as the cause of abnormal reaction of the patient, or of later complication, without mention of misadventure at the time of the procedure; K52.9 Noninfective gastroenteritis and colitis, unspecified
CPT/HCPCS: 36415; 84134; 88305; 99153; G0500; J0690; J2250; J3010; J7121

== ENCOUNTER 2024-02-01 13:51 | Inpatient (IN) | payer MEDICARE, BC ==
[~2024-02-01] VITALS: Ht 172.7 cm; Wt 68.2 kg
--- NOTE | ~2024-02-01 | DS ---
[facility] [address] [place], [place] [address] Draft ADMISSION DATE: 02/10/2024 DISCHARGE DATE: 02/14/2024 REASON FOR ADMISSION: Takedown of loop ileostomy, temple of gastrointestinal tract. HISTORY: This 68-year-old white man is a patient of Dr. Tristan Carrera in [place], [place]. Two years ago in March, he presented with severe sepsis, toxic megacolon, hypotension, megacolon found related to perforated diverticulitis. He underwent subtotal colectomy with end ileostomy. He had progressive problems related to severe systemic sepsis requiring advanced and prolonged pressor support, which caused additional bowel compromise requiring resection and other interventions. He has had a long and arduous course overall. He had takedown of the ileostomy in a side-to-end ileoproctostomy but had failure of that anastomosis despite good preparation and nutritional status. This required diverting loop ileostomy in the right side. This has ultimately healed up and an antegrade study through the distal limb of the loop ileostomy does show a good and patent and intact ileoproctostomy. On that basis, he is admitted at this time to undergo takedown of the loop ileostomy as his final stage of operative intervention. PERTINENT PHYSICAL EXAMINATION: GENERAL: Shows a pleasant white man, who looks to be in no distress. He is alert and oriented. CHEST: Clear. HEART: Regular without murmur. ABDOMEN: Soft and nontender. The midline incision is softened up and normal. There is a functioning right loop ileostomy in the mid abdomen. EXTREMITIES: Show no clubbing, cyanosis, or edema. HOSPITAL COURSE: The patient was taken to operation on February 10, 2024. 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 Operation consisted of not only flexible cystoscopy with placement of the Sellers catheter but laparotomy with extensive lysis of adhesions, but also takedown of the diverting loop ileostomy with partial small bowel resection and a [id number] functional end-to-end hand-sewn enteroenterostomy. Repair of an incisional hernia in the midline was undertaken as well, which includes excision of the sac right-sided components release and medialization of the linea alba and repair of the hernia. All of this was prolonged, complicated, and difficult lasting more than 4 hours. His postoperative course was notable for a drain in the pelvis and a drain in the right PATIENT NAME: DAVID POTTS DISCHARGE SUMMARY DATE OF : 57 REPORT #: [id number] PHYSICIAN: MICHAEL PRO MD PCP: Tristan Carrera DO REPORT IS CONFIDENTIAL AND NOT TO BE RELEASED WITHOUT AUTHORIZATION [facility] [address] [place], [place] [address] Draft subcutaneous space, draining serosanguineous fluid. He had prompt resumption of bowel function including liquid bowel movement within the first 24 hours. The previous excised ostomy site was managed with plain gauze wound packing. He had progressive improvement and the drain in the pelvis that showed no sign of adverse finding and it was removed. Sellers catheter was removed as well and with the use of Flomax as he has been on before, he had no problems urinating. By day of discharge, he is ambulating well, tolerating a regular diet. He is noted to have bowel movements that are semi solid and the incision is healing well. The former ostomy site is being managed by gauze packing on a daily basis. He is permitted to shower at discharge. Discharge instruction should include showering on a daily basis and leaving Steri-Strips in place. They were remove the drain from the right subcutaneous space in the coming week in my office. He should pack the ostomy site with plain gauze on a daily basis as well. He is permitted and encouraged to allow water from his shower to reach the depths of the ostomy site which is not too deep actually. He should lift no more than 20 pounds for the next four weeks and should maintain a regular diet. DISCHARGE MEDICATIONS: Will include: 1. Augmentin 500 mg p.o. t.i.d. #10. 2. Flagyl 250 mg t.i.d. #15. 3. Flomax 0.4 mg daily #30. 4. Percocet 7.5/325, 1-2 p.o. q.6 hours p.r.n. pain #10. 5. Plain Tylenol 500 mg two tablets p.o. q.6 hours as needed for lesser pain #30. 6. He will continue his usual medication including allopurinol 300 mg half tablet p.o. daily. 7. Azelastine 0.05% eyedrops each eye two times daily for allergic inflammation. 8. Fluticasone spray two sprays nasal as needed for nasal congestion. 9. Simvastatin 20 mg p.o. at bedtime. 10. Pepcid 20 mg p.o. daily for reflux symptoms. 11. Flomax 0.4 mg p.o. daily. 12. Indapamide 1.25 mg p.o. at bedtime. 13. Spironolactone 25 mg p.o. daily. 14. Multivitamin one p.o. daily. 15. Olopatadine Pataday 0.1% eyedrops each eye for allergies. 16. Amlodipine 5 mg p.o. daily. 17. Albuterol Ventolin inhaler one inhalation q.4 hours as needed for cough. 18. Doxycycline 100 mg b.i.d. as needed for rosacea flare. 19. Ciclopirox 0.77% cream as needed for rosacea. 20. Desonide 0.05% cream topically as needed for rosacea. 21. Nitroglycerin Nitrostat 0.4 mg sublingual as needed for chest pain. PATIENT NAME: DAVID POTTS DISCHARGE SUMMARY DATE OF : 57 REPORT #: [id number] PHYSICIAN: MICHAEL PRO MD PCP: Tristan Carrera DO REPORT IS CONFIDENTIAL AND NOT TO BE RELEASED WITHOUT AUTHORIZATION [facility] [address] [place], [place] [address] Draft 22. Claritin 10 mg p.o. daily as needed for allergies. 23. Sumatriptan 50 mg p.o. q.6 hours as needed for headache. 24. Magnesium oxide 400 mg p.o. b.i.d. 25. Semaglutide Ozempic 0.5 mg subcutaneously weekly for diabetes on Mondays. 26. [place] fatty acids 1000 mg daily. 27. Zofran 8 mg q.6 hours p.o. as needed for nausea. 28. Isosorbide mononitrate extended release 30 mg p.o. daily. 29. Melatonin 10 mg at bedtime for insomnia. DISCHARGE DIAGNOSES: 1. Ileostomy following subtotal colectomy with ileoproctostomy, status post partial small bowel resection and [id number] functional ileoileostomy. 2. History of toxic megacolon, subsequent multiple interventions, status post subtotal colectomy, ileostomy March 2022. FOLLOWUP PLAN: He will return to see me in a week or so at which point, the drain will be removed most likely. MD ARIA Mane/ALEXL /[id number] cc: Tristan Carrera DO Copies: Tristan Carrera DO ~ PATIENT NAME: DAVID POTTS DISCHARGE SUMMARY DATE OF : 57 REPORT #: [id number] PHYSICIAN: MICHAEL PRO MD PCP: Tristan Carrera DO REPORT IS CONFIDENTIAL AND NOT TO BE RELEASED WITHOUT AUTHORIZATION
[~2024-02-01 13:51] MED LIST changes: -IBLOOD GLUCOSE TEST STRIP 1 EA TEST VI PRN; -LACTATED RINGER'S 1,000 ML IV SCH; -LIDOCAINE HCL 1% 5 ML SDV INJ ONE; -MIDAZOLAM HCL 5 MG/5 ML VIAL IV PRN; +OMEGA-31000 MG PO; -fentaNYL citrate 100 MCG/2 ML VIAL IV PRN
[2024-02-07] MEDS ORDERED: MET TOP (13:33)
[2024-02-07] MEDS ORDERED: [UNRECOGNIZED DRUG - OTHER] TOP (13:33)
[2024-02-07 13:38] VITALS: BP 100/74
[2024-02-10] VITALS (8 sets, daily range): BP systolic 95–103; BP diastolic 61–71
[2024-02-10] MEDS ORDERED: LACTATED RINGER'S 1,000 ML IV SCH ×2 (05:00→14:00)
[2024-02-10] MEDS ORDERED: LIDOCAINE HCL 1% 5 ML SDV INJ ONE (07:00)
[2024-02-10] MEDS ORDERED: IBLOOD GLUCOSE TEST STRIP 1 EA TEST VI PRN ×2 (07:00→09:00)
[2024-02-10] MEDS ORDERED: MEROPENEM 500 MG in SODIUM CHLORIDE 0.9% 100 ML IV SCH (07:00)
[2024-02-10] MEDS ORDERED: ondansetron HCL 4 MG/2 ML VIAL ONE (07:11)
[2024-02-10] MEDS ORDERED: ROCURONIUM BROMIDE 50 MG/5 ML SYR ONE ×2 (07:11→09:14)
[2024-02-10] MEDS ORDERED: fentaNYL citrate 100 MCG/2 ML VIAL ONE (07:11)
[2024-02-10] MEDS ORDERED: dexmedeTOMIDine HCl 200 MCG/2 ML VIAL ONE (07:11)
[2024-02-10] MEDS ORDERED: DEXAMETHASONE SOD PHOS 4 MG/ML VIAL ONE ×2 (07:11→11:22)
[2024-02-10] MEDS ORDERED: ACETAMINOPHEN 1,000 MG/100 ML VIAL ONE (07:11)
[2024-02-10] MEDS ORDERED: LIDOCAINE HCL 2% 5 ML SDV ONE ×2 (07:11→13:23)
[2024-02-10] MEDS ORDERED: propofoL 200 MG/20 ML VIAL ONE (07:11)
[2024-02-10] MEDS ORDERED: MAGNESIUM SULFATE 1 GM/2 ML VIAL ONE ×2 (07:11→10:39)
[2024-02-10] MEDS ORDERED: SUGAMMADEX SODIUM 200 MG/2 ML ML ONE (07:11)
[2024-02-10] MEDS ORDERED: Ropivacaine HCl 0.5% 30 ML VIAL ONE ×3 (07:12→12:55)
[2024-02-10] MEDS ORDERED: KETAMINE in NS 50 MG/5 ML SYR ONE (07:12)
[2024-02-10] MEDS ORDERED: SODIUM CHLORIDE 0.9% 20 ML IV ONE ×3 (07:12→12:55)
[2024-02-10] MEDS ORDERED: LIDOCAINE HCL 2% 20 MG/ML VIAL INJ ONE (07:12)
--- NOTE | 2024-02-10 08:00 | NUR ---
VISITED DURING SPIRITUAL CARE ROUNDS. PT JUST BEING TAKEN TO SURGERY. PROVIDED SUPPORTIVE PRESENCE, PRAYER. PT EXPRESSED GRATITUDE.
[2024-02-10] MEDS ORDERED: ePHEDrine sulfate 50 MG/ML AMP ONE (08:17)
[2024-02-10] MEDS ORDERED: NALOXONE HCL 0.4 MG SYR IV PRN (09:00)
[2024-02-10] MEDS ORDERED: HYDROmorphone HCL 1 MG/ML SYR IV PRN (09:00)
[2024-02-10] MEDS ORDERED: fentaNYL citrate 50 MCG/ML SDV IV PRN (09:00)
[2024-02-10] MEDS ORDERED: droPERidol 5 MG/2 ML VIAL IV PRN (09:00)
[2024-02-10] MEDS ORDERED: ondansetron HCL 4 MG/2 ML VIAL IV PRN ×2 (09:00→14:00)
[2024-02-10] MEDS ORDERED: PROCHLORPERAZINE EDISYLATE 10 MG/2 ML VIAL IV PRN (09:00)
[2024-02-10] MEDS ORDERED: LACTATED RINGER'S 1,000 ML IV ONE ×2 (09:53→11:26)
--- NOTE | 2024-02-10 12:34 | NUR ---
02/10/24 Ayla4 Kate Aden 1219-PATIENT ARRIVED TO PACU ON 6L MASK NONAROUSABLE ORAL AIRWAY. RN DOING JAW THRUST TO MAINTAIN OPEN AIRWAY. SR. IVF INFUSING. DRESSINGS TO ABDOMEN CDI [address] ONEIL CATHETER DRAINING YELLOW URINE. GLUCOSE CHECKED 138.
[2024-02-10] MEDS ORDERED: MORPHINE SULFATE 1 MG/ML VIAL ONE (13:23)
[2024-02-10] MEDS ORDERED: FAMOTIDINE 20 MG/ 2 ML VIAL IV SCH ×2 (13:57→21:00)
[2024-02-10] MEDS ORDERED: AMLODIPINE BESYLATE 5 MG TAB PO SCH (13:58)
[2024-02-10] MEDS ORDERED: allopurinoL 100 MG TAB PO SCH (13:59)
[2024-02-10] MEDS ORDERED: KETOROLAC TROMETHAMINE 15 MG/ML VIAL IV PRN (14:00)
[2024-02-10] MEDS ORDERED: TAMSULOSIN HCL 0.4 MG CAP PO SCH (14:00)
[2024-02-10] MEDS ORDERED: MORPHINE SULFATE 10 MG/ML VIAL IV PRN (14:00)
[2024-02-10] MEDS ORDERED: MEROPENEM 1,000 MG in SODIUM CHLORIDE 0.9% 100 ML IV SCH ×2 (14:00→21:00)
[2024-02-10] MEDS ORDERED: SPIRONOLACTONE 25 MG TAB PO SCH (14:00)
[2024-02-10] MEDS ORDERED: MAGNESIUM OXIDE 400 MG TABLET PO SCH (14:01)
[2024-02-10] MEDS ORDERED: NITROGLYCERIN 0.4 MG SUBL SL PRN (14:15)
[2024-02-10] MEDS ORDERED: ACETAMINOPHEN 1,000 MG/100 ML VIAL IV PRN (14:15)
--- NOTE | 2024-02-10 15:06 | NUR ---
Patient to the medical floor. Patient drowsy, arousable to verbal stimuli, answers questions appropriately. Patient reports pain has improved a bit and tolerable at this time. Patient's vitals are stable, afebrile. Gauze dressing to right abdomen, small amount of shadowing noted. x2 MIGUELITO drains noted to right lower abd, both closed to suction with scant sang drainage noted. Sellers intact/patent, clear yellow urine noted. Cont sp02 monitor in place, 100% on 2L oxygen. Patient oriented to room and call light.
[2024-02-10] MEDS ORDERED: ISOSORBIDE MONO30 MG PO (15:25)
--- NOTE | 2024-02-10 16:06 | NUR ---
Patient continues to rest, wakes to verbal stimuli then returns to sleep. Patient has no notable distress. Fluids infusing per provider order. VS remain stable. Pt on 2L oxygen per nc, sp02 100% at this time. Call light within reach.
--- NOTE | 2024-02-10 16:20 | NUR ---
Attempted to see pt. Notified by RN pt had difficult time with pain control. I will not awaken and see him tomorrow.
--- NOTE | 2024-02-10 16:46 | NUR ---
ADMIN MORPHINE 2MG IV FOR REPORTS OF 8/10 ABDOMINAL PAIN.
[2024-02-10] MEDS ORDERED: MELATONIN10 M2 PO (17:54)
--- NOTE | 2024-02-10 17:55 | NUR ---
MED REC COMPLETE
--- NOTE | 2024-02-10 20:34 | NUR ---
REFUSE LABORER OBTAINED VITALS AND I&O. PT ICE WATER REFILLED. PT STATES NO FUTHER NEEDS AT THIS TIME. CALL LIGHT PLACED WITHIN REACH.
[2024-02-10] MEDS ORDERED: MELATONIN 3 MG TAB PO SCH ×2 (21:00)
--- NOTE | 2024-02-10 21:18 | NUR ---
PT AWAKE, ALERT AND ORIENTED. ROOM AIR.USES CPAP AT [place], HOME C=MACHINE EVALUATED BY RT. LUNGS CLEAR, NO COUGH. ABD DRESSING WITH OLD DRAINAGE. MIGUELITO X2 PATENT. MICHELLE, NOT PASSING GAS AT THIS TIME. SCDS IN PLACE, F/C PATENT.
--- NOTE | 2024-02-10 22:02 | NUR ---
C/O ABD PAIN 5/10, MEDICATED WITH TORADOL 15MG IV. WATCHING TV, CPOX AT BEDSIDE, IVF INFUSING
[2024-02-11] VITALS (8 sets, daily range): BP systolic 103–106; BP diastolic 64–70
--- NOTE | 2024-02-11 01:10 | NUR ---
RESTING, USING CPAP, NO C/O PAIN, 2 MIGUELITO PATENT, SCDS IN PLACE, F/C PATENT, IVF INFUSING
--- NOTE | 2024-02-11 02:15 | NUR ---
AWAKENS EASILY, NO C/O PAIN, USING CPAP, IVF INFUSING, 2 MIGUELITO PATENT, DRAINING SANGUINEOUS DRAINAGE, F/C PATENT, ABD DRESSING WITH OLD DRINAGE, VERY FAINT BOWEL TONES. NOT PASSING GAS, NO C/O N/V
--- NOTE | 2024-02-11 04:27 | NUR ---
Resting, eyes closed, using home CPAP, no c/o pain or distress, IVF infusing, CPOX on at bedside, 2 MIGUELITO patent, SCD's in place
--- NOTE | 2024-02-11 05:18 | NUR ---
JACKET CHANGER OBTAINED VITALS AND I&O. PT STATES NO FURTHER NEEDS AT THIS TIME. CALL LIGHT WITHIN REACH.
[2024-02-11 05:29] LABS: BASOPHILS 0.2 % (0-2); HEMATOCRIT 38.7 % (35.0-50.0); HEMOGLOBIN 12.9 g/dL (12.0-18.0); LYMPHOCYTES 1.2 % (24-44); MCH 28.5 (27-36); MCHC 33.2 g/dl (30-36); MCV 85.9 fl (81-99); MONOCYTES 1.9 % (0-12); NEUTROPHILS 96.7 % (39-80); PLATELET COUNT 124 K/uL (140-440); RBC 4.51 M/ul (4.3-5.7); RDW 15.9 (10.5-15.0)
[2024-02-11 05:38] LABS: ANION GAP 14.3 (7-21); BUN/CREATININE RATIO 24.18 (6.0-28.6); CALCIUM 8.7 mg/dL (8.5-10.1); CREATININE, SERUM 2.15 mg/dL (0.70-1.30); POTASSIUM 4.3 mmol/L (3.5-5.1)
--- NOTE | 2024-02-11 07:17 | NUR ---
CALL LIGHT ANSWERED. PT NEEDED TO HAVE A BM. LINK CUTTER 1PA WITH CANE TO BATHROOM. LINK CUTTER PROVIDED FOR PRIVACY. PT INSTRUCTED TO USE BATHROOM CALL LIGHT WHEN DONE. BATHROOM CALL LIGHT ANSWERED. PT HAD SMALL BM. PT IPA TO CHAIR. PT STATES NO FURTHER NEEDS AT THIS TIME. CPOX RECONNECTED AND CALL LIGHT PLACED WITHIN REACH.
--- NOTE | 2024-02-11 08:11 | NUR ---
recieved report at 0797. pt sitting up in chair. checked bandages and valentin drains with nurse no concerns at this time. no other zaira needed at this time call light within reach
--- NOTE | 2024-02-11 10:23 | NUR ---
VISITED DURING SPIRITUAL CARE ROUNDS. PT IN OVERALL GOOD SPIRITS; STATES WILL VISIT LATER TODAY. EXPRESSED HOPE FOR EASY RECOVERY AND RESOLUTION OF TROUBLESOME CONDITION. PROVIDED SUPPORTIVE PRESENCE, HOSPITALITY, PRAYER.
--- NOTE | 2024-02-11 11:01 | NUR ---
UR CLINICAL REVIEW: 2MN CHANG-MEETS CRITERIA FOR INPATIENT MEDICARE INPT 02/10/24 @ 1403 ORDER MATCHES STATUS NO AUTH REQUIRED PER MEDICARE RULES PLAN TO RETURN HOME AT DC WHEN STABLE
--- NOTE | 2024-02-11 11:33 | NUR ---
PATIENT SITTING UP IN HIS CHAIR. PATIENT HAS A VISTOR.
[2024-02-11] MEDS ORDERED: OXYCODONE/APAP 7.5/325 TAB PO PRN (15:30)
--- NOTE | 2024-02-11 15:34 | NUR ---
Spoke with Wilfrid. He is awake and states feeling very well. Denies pain. cont. to live at home in a 1 story home with his . Minimal steps. He uses a cane at time, but does also have a walker. Pt has had multiple infections and abd surgeries in the past. He is hopeful this will be the end. HE denies any needs and plans on dc to home when cleared by Dr. Hernandez. He does not have any financial issues. His daughter is a nurse,but does not live in town. is disabled and has a history of strokes. Pts son helps them as needed. Wilfrid denies needing help with anything at this time. Home when cleared medically.
--- NOTE | 2024-02-11 16:53 | NUR ---
bandage was seeping so bandage changed per dr orders. new dressing placed clean dry and intact. no other cares needed at this time. call light within reach
--- NOTE | 2024-02-11 19:19 | NUR ---
PT UP ON CHAIR, LEGS DEPENDENT POSITION. ON ROOM AIR, C/O ABD PAIN, 8/10 MEDICATED WITH 2 PERCODAN PO. COOPERATIVEW ITH ASSESSMENT. LUNGS CLEAR, HOB, ABD TENDER, PASSING GAS AND HAD BM'S IN AM SHIFT. AND DRESSING R ABD WITH OLD DRAINAGE. JPX2 WITH SMALL AMOUNT OF SS DRAINAGE. DRESSING CDI, PT WATCHNG MOVIES ON HIS I PAD, INDEPENDENT IN ROOM, SL PATENT RFA. F/C PATENT DRAINING CLEAR YELLOW URINE. TOLERATING FLUIDS WELL, NO C/O N/V. ON FULL LIQUIDS
[2024-02-11] MEDS ORDERED: FAMOTIDINE 20 MG TAB PO SCH (21:00)
--- NOTE | 2024-02-11 22:26 | NUR ---
no c/o pain, ambulated around lower and upper nursing stations 4x's, using cane, tolerated well, back to room, up to BRP, voided nad had bm, does own pericare. will be using home CPAP.
--- NOTE | 2024-02-11 23:47 | NUR ---
PT RESTING, IN BED, EYES CLOSED, USING HOME CPAP, F/C PATENT. NO S/SX DISTRESS AT THIS TIME
[2024-02-12] VITALS (8 sets, daily range): BP systolic 98–116; BP diastolic 67–75
--- NOTE | 2024-02-12 00:57 | NUR ---
AWAKE, USING CPAP, UP TO BRP, HAD ANOTHER SEMILIQUID BM. BACK TO BED, INDEPENDENT. ABD DRESSINGS INTACT, MICHELLE, ABD TENDER, MIGUELITO PATENT, F/C PATENT. NO C/O PAIN. SCDS IN PLACE, COOPERATIVE WITH SECOND ASSESSMENT, WARM BLANKET AND FLUIDS GIVEN ON REQUEST
--- NOTE | 2024-02-12 01:52 | NUR ---
SLEEPING, EYES CLOSED, USING HOME CPAP. NO S/SX DISTRESS. F/C PATENT.
--- NOTE | 2024-02-12 03:50 | NUR ---
RESTING, EYES CLOSED, USING HOME CPAP, NO S/SX DISTRESS
--- NOTE | 2024-02-12 04:57 | NUR ---
PT UP TO BRP, HAD MORE LIQUIDS BM'S, BACK TO BED, INDEPENDENT. USING HOME CPAP, CPOX AT BEDSIDE, SCDS IN PLACE, OFF AT THIST RAMOS. COOPERATIE WITH VITALS AND ASSESSMENTS. ABD SOFT, TENDER, MICHELLE, DRESSING W OLD DRAINAGE. SL PATENT. JPX2 W SS DRAINAGE. DRESSING WITH SMALL AMOUNT OLD DRAINAGE. FORMER STOMA AREA SITE DRESSING PATENT, SMALL AMOUNT OF SS DRAINAGE. F/C PATENT, DRAINING LIGHT PINK COLORED DRAINAGE. TOLERATING LIQUIDS WELL, NO C/O N/V.
--- NOTE | 2024-02-12 06:59 | NUR ---
resting, eys closed, CPAP in place,f/c patent, draining very light pinkish/yellow urine
--- NOTE | 2024-02-12 09:18 | NUR ---
Patient up in the chair for breakfast. No trouble with this, patient tolerating the full liquid. Patient blood pressure is low at 98/67 pulse of 70. I have held both blood pressure medications this morning. Discussed with charge nurse. Patient also agrees and holds some medications at home per his PCP orders.
--- NOTE | 2024-02-12 10:01 | NUR ---
Patient up and walked 3 laps on Med Surg. He does have pain 7/10 but he wants to wait for his oral pain medication at 1030. No complications at all tolerated walking very well.
--- NOTE | 2024-02-12 11:15 | NUR ---
was into see patient. Doctor is going to place new orders for patient. Patient denies any cares at this time.
[2024-02-12] MEDS ORDERED: metroNIDAZOLE 250 MG TAB PO SCH (12:00)
[2024-02-12] MEDS ORDERED: AMOXICILLIN/CLAVULANATE K 500 MG TAB PO SCH (12:00)
[2024-02-12] MEDS ORDERED: OXYCODONE/APAP 7.5/325 TAB PO PRN (12:00)
--- NOTE | 2024-02-12 12:22 | OR ---
[facility] [address], [place] [address] Signed DATE OF OPERATION: 02/10/2024 SURGEON: Michael Pro MD PREOPERATIVE DIAGNOSES: 1. 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 2. History of episodic acute kidney injury and renal failure. 3. Multiple postoperative abdominal interventions including partial enterectomy control and treatment of enterocutaneous fistulas and ultimately revision ileoproctostomy and diverting loop ileostomy. POSTOPERATIVE DIAGNOSES: 1. 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 2. History of episodic acute kidney injury and renal failure. 3. Multiple postoperative abdominal interventions including partial enterectomy control and treatment of enterocutaneous fistulas and ultimately revision ileoproctostomy and diverting loop ileostomy. 4. Locally urethral obstruction requiring cystoscopic placement of Sellers catheter. PROCEDURES: 1. Flexible cystoscopy with over the wire placement of Sellers catheter. 2. Laparotomy with extensive lysis of adhesions of intra-abdominal cavity. 3. Takedown of diverting loop ileostomy with partial small-bowel resection and befl-pz-lzat ( functional end-to-end) hand-sewn enteroenterostomy. 4. Repair of incisional hernia including excision of hernia sac and right-sided components release for medialization of the linea alba and repair of hernia. All of this prolonged, complicated and difficult. ... more than 4 hours ANESTHESIA: General endotracheal; Parish Euceda CRNA. ASSISTANTS: Natasha Cunningham RN, Joi Stone, SHAR and Shawanda Bourne RN. INDICATION: This 68-year-old white man is a patient of Dr. Tristan Carrera in [facility]. In March two years ago, he presented with severe sepsis, toxic megacolon, hypotension and megacolon found to be related to perforated diverticulitis. He underwent subtotal Electronically Signed By: MICHAEL PRO MD 02/12/24 1222 PATIENT NAME: DAVID POTTS OPERATIVE REPORT DATE OF : 57 REPORT #: [id number] PHYSICIAN: MICHAEL PRO MD PCP: Tristan Carrera DO REPORT IS CONFIDENTIAL AND NOT TO BE RELEASED WITHOUT AUTHORIZATION [facility] [address], [place] [address] Signed colectomy with end ileostomy but had progressive problems requiring repeat laparotomy, partial bowel resection and other interventions. He had a myriad of complicated issues thereafter. He ultimately underwent takedown of the ileostomy with a side to end ileoproctostomy, but had failure of the anastomosis requiring proximal diverting loop ileostomy. He underwent revision of the ileoproctostomy a few months ago with maintenance of the diverting loop ileostomy and has been tested regarding the integrity of the ileoproctostomy with an antegrade contrast study within the past few weeks. He has recovered from a nutritional standpoint, is now to undergo takedown of loop ileostomy with episcopal of the gastrointestinal tract and elimination of the ileostomy. He understands the risks of operation including but not limited to bleeding, infection, anastomotic failure, or other problems and wished to proceed. FINDINGS: Attempt by the nurse for placement of Sellers catheter was unsuccessful and on that basis, I performed cystoscopy and placement of the Sellers catheter with over the wire technique. The obstructive component appeared to be an angulation deformity at the bladder neck, but no specific urethral stricture. at the prostatic urethra. Once placed the catheter functioned well. As expected, there were considerable intraabdominal adhesions within the abdominal cavity. The loop ileostomy was dissected free and partially resected and a dsyl-jn-qldy functional end-to-end ileoileostomy was performed. He did have a concurrent fascial defect of incisional hernia with separate hernia sac. This was repaired by resection of the hernia sac and reapproximation of the linea alba after a component separation in the right lateral aspect freeing the right rectus abdominis. A drain was placed in the right subcutaneous space as well as the pelvis. PROCEDURE IN DETAIL: The patient was brought to the operating room, given a general endotracheal anesthetic. Preoperative antibiotic meropenem had been given based on previous culture results and his allergy profile. The midline incision from prior interventions was soft and without evidence of healing ridge. The right-sided loop ileostomy was considered to be in excellent health overall. The abdomen was clipped and later prepared with a Betadine based solution. Attempts at passage of a Sellers catheter by the nurse were unsuccessful. On that basis, further efforts at passage were abandoned and cystoscopy was performed by me. This included sterile technique and a flexible cystoscope. Passage with persistent saline irrigation identified an angulation deformity at the prostatic urethra which was manipulated past allowing the cystoscope to enter the bladder. The bladder appeared normal overall. A Flexible wire was passed out through the channel of the cystoscope maintaining its position in the bladder. The cystoscope was removed. Electronically Signed By: MICHAEL PRO MD 02/12/24 1222 PATIENT NAME: DAVID POTTS OPERATIVE REPORT DATE OF : 57 REPORT #: [id number] PHYSICIAN: MICHAEL PRO MD PCP: Tristan Carrera DO REPORT IS CONFIDENTIAL AND NOT TO BE RELEASED WITHOUT AUTHORIZATION [facility] [address], [place] [address] Signed A latex-free Sellers catheter was trimmed on its tip to allow for passage of the catheter over the wire. This was accomplished without problem and urine was noted in the Sellers catheter. The balloon was expanded using sterile saline and the catheter appeared to be well positioned and was secured in place to a catheter collection device. The abdomen was completed in its preparation. Gauze was applied over the ileostomy site itself and the abdomen then covered with an Ioban dressing. Incision was made in the midline cephalad to the level of the right-sided loop ileostomy. Dissection was carried through the subcutaneous tissue and dermis with sharp dissection only, ultimately passing the midline fascia. Hernia with hernia sac was noted inferior to the entry point of the laparotomy and care was taken to avoid intraabdominal injury. Meticulous dissection was required with sharp dissection, mostly with a 15 blade, but ultimately with sharp scissors. The intraabdominal cavity was entered and filmy adhesions were noted over small bowel loops that were matted down. There was no sign of ischemic change, inflammatory problem, or other issues. A considerably lengthy dissection was undertaken freeing bowel loops with sharp dissection ultimately identifying the proximal area of the loop ileostomy and subsequently the distal limb of ileum. Dissection was carried into the pelvis a bit as this limb of the ileostomy connected to the ileoproctostomy. The pelvis had adhesions, but no sign of findings of concern otherwise. Ultimately, the loop ileostomy was dissected free from the overlying fascia, freeing it entirely in a circumferential way. Further dissection was taken into the fascial layer and once secured, a VENITA stapling device was used to transect the efferent and afferrant libs of the loop ileostomy. The remaining loop of ileum was well within the subcutaneous layer with that manuever. The efferent limb of the ileum was vastly smaller than the more proximal ileum due to fecal diversion issues over many months. A scou-un-wysm enteroenterostomy was deemed most advisable as an end-to-end anastomosis would be quite unlikely beneficial due to the disparate sizes of the proximal and distal limbs. The staple site on each ileal limb was oversewn with interrupted 3-0 silk suture. A ijpb-ao-fcos ileoileostomy was then undertaken with an anastomotic site of at least 6 and more likely 8 cm. This was undertaken in a two-layer technique with interrupted 3-0 silk suture in the seromuscular layer and interrupted 3-0 Vicryl in the mucosal layer. There was no appreciable fascial defect to secure. The proximal and distal limbs were milked and there was no evidence of enteric leakage at the anastomosis. Copious irrigation was then undertaken in the abdominal cavity. Electronically Signed By: MICHAEL PRO MD 02/12/24 1222 PATIENT NAME: DAVID POTTS OPERATIVE REPORT DATE OF : 57 REPORT #: [id number] PHYSICIAN: MICHAEL PRO MD PCP: Tristan Carrera DO REPORT IS CONFIDENTIAL AND NOT TO BE RELEASED WITHOUT AUTHORIZATION [address] [address] Signed To the right lower quadrant stab incision a 7 mm flat Raúl drain was placed in the depths of the pelvis. Attention was turned towards the fascial defect through each of the loop ileostomy had been passed. The fascial edges were freed completely and reapproximated with interrupted 0 PDS suture initially and subsequently closed with a running 0 PDS as well. This allowed for complete closure of the fascia with remaining external portion of loop ileostomy from the abdominal cavity. Copious saline irrigation was then undertaken. There was an 6cm incisional hernia in the midportion of the wound. It appeared that the right side of the fascial defect was contracted and that closure of the fascia would be impossible without more advanced measures. On that basis, the subcutaneous tissue over the right rectus abdominis was freed with electrocautery exposing the right rectus abdominis. Components release was undertaken on the right side by incising the external oblique, which allowed mobilization of the right rectus muscle to the midline. Closure of the hernia defect was undertaken with running bidirectional #1 PDS suture at that point. Subcutaneous tissue was copiously irrigated at this point. Attention was then turned towards excision of the remaining subcutaneous portion of the loop ileostomy. Circumferential excision of the dermis at the loop ileostomy site was undertaken and the remaining portion of ileum removed from the subcutaneous space. This was copiously irrigated. Through a separate stab incision, an additional 7 mm flat Raúl drain was placed over the fascial layer. The subcutaneous tissue of the ileostomy itself was reapproximated with interrupted 2-0 Vicryl suture. The drain was attached to bulb suction and secured the skin with nylon suture as noted. The skin was then closed with running subcuticular 3-0 Vicryl at the midline and the ileostomy site proper was packed with gauze. Steri-Strips were applied to the midline incision as was an Acticoat dressing. Drains were applied to bulb suction. He was ultimately extubated and transferred to the recovery room in good condition having suffered no complication. Prior to transport TAP blocks were performed bilaterally for postoperative analgesic benefit. Blood loss was estimated at less than 50 mL. Sponge, needle, and instrument counts were reported as correct x3. The operation was prolonged, complicated, and difficult related to dissection and anatomic factors lasting more than 4 hours in aggregate. Michael Pro MD Electronically Signed By: MICHAEL PRO MD 02/12/24 1222 PATIENT NAME: DAVID POTTS OPERATIVE REPORT DATE OF : 57 REPORT #: [id number] PHYSICIAN: MICHAEL PRO MD PCP: Tristan Carrera DO REPORT IS CONFIDENTIAL AND NOT TO BE RELEASED WITHOUT AUTHORIZATION [address] [address] Signed /[facility] /[id number] cc: Tristan Carrera DO Dr [address], [place]. Copies: Tristan Carrera DO ~ Electronically Signed By: MICHAEL PRO MD 02/12/24 1222 PATIENT NAME: DAVID POTTS TERESO OPERATIVE REPORT DATE OF : 57 REPORT #: [id number] PHYSICIAN: MICHAEL PRO MD PCP: Tristan Carrera DO REPORT IS CONFIDENTIAL AND NOT TO BE RELEASED WITHOUT AUTHORIZATION
--- NOTE | 2024-02-12 12:31 | NUR ---
Patient in chair for lunch. We will remove dunn once he is done with his food. is at bedside with him. Pt given pain medication and antibiotics. Denies any other cares at this time.
--- NOTE | 2024-02-12 13:06 | NUR ---
Sellers removed. No complications.
--- NOTE | 2024-02-12 15:30 | NUR ---
IN ROOM PT DONE WITH SHOWER AND ASKING TO HAVE OLD OSTOMY SITE WOUND REPACKED. OLD GAUZE REMOVED FROM SITE. NEW PLAIN GAUZE PLACED. SYLVIA SMITH IN ROOM. PT REQUESTING TO AMBULATE [place]. SYLVIA SMITH AMBULATES [place] WITH PT. PT DENIES ANY OTHER NEEDS FROM THIS RN.
--- NOTE | 2024-02-12 16:05 | NUR ---
PATIENT AND I WALKED FOUR LAPS AROUND MED. SURG. PATIENT IS NOW BACK IN HIS CHAIR. GOT HIM A FRESH GLASS OF ICE WATER. AND WARM BLANKET.
--- NOTE | 2024-02-12 16:27 | NUR ---
Gauze placed over stoma with tape. Patient in chair watching his tv shows. He is ready to try a regular diet for dinner. Patient did advise that his stool has been more formed this afternoon and he also passed gas which he hasnt in 2 years.
--- NOTE | 2024-02-12 17:04 | NUR ---
Patient up to the bathroom and was able to void post dunn removal. No complications. Patient back in chair waiting for dinner. Antibiotics given.
--- NOTE | 2024-02-12 18:45 | NUR ---
Patient ate 100 percent of his dinner, tolerated great as of now. Pt IV was flushed, additional tape added. Pt has his ipad he is playing on. Pt given fresh water.
--- NOTE | 2024-02-12 19:20 | NUR ---
REPORT RECEIVED FROM DAY SHIFT RN. PATIENT IN BATHROOM AT THIS TIME. DENIES ANY NEEDS. INDEPENDENT IN ROOM.
--- NOTE | 2024-02-12 19:53 | NUR ---
PATIENT RESTING IN RECLINER TALKING ON PHONE. URINAL EMPTIED. PATIENT REPORTS HE HAD A BM THAT WAS SEMI SOFT WITH SOME LIQUID. DENIED ANY NEEDS AT THIS TIME. CALL LIGHT WITHIN REACH.
--- NOTE | 2024-02-12 21:59 | NUR ---
PATIENT COMING OUT OF BATHROOM. HS MEDICATIONS GIVEN. BOWEL TONES ACTIVE X 4 QUADRANTS. LUNG SOUNDS CTA. MIDLINE DRESSING REMAINS CDI. PACKING TO RLQ REMAINS INTACT WITH NO SHADOWNING NOTED. ALEKSANDR DRAINS WITH AN OUTPUT OF 40ML TOGETHER. DRAINING SEROSANGENIOUS FLUID. PATIENT WITH NO C/O PAIN AT THIS TIME. NO FURTHER NEEDS AT THIS TIME. CALL LIGHT WITHIN REACH.
--- NOTE | 2024-02-12 22:00 | NUR ---
CALL LIGHT ANSWERED, pt PROVIDED WITH FRESH ICE WATER AND AMBULATED THE HALLWAY WITH THIS RN FOR MULTIPLE LAPS (AT LEAST 5). pt TOLERATED WELL, STEADY ON FEET WITH PERSONAL CANE. pt BACK IN ROOM, CALL LIGHT IN REACH.
--- NOTE | 2024-02-13 00:44 | NUR ---
CALL LIGHT ANSWERED, pt REPORTS 8 PAIN. PRN TORADOL GIVEN-SEE EMAR. URINAL EMPTIED, 275MLS NOTED. BOARD UPDATED AND CALL LIGHT IN REACH.
--- NOTE | 2024-02-13 02:20 | NUR ---
CALL LIGHT ANSWERED. URINNAL EMPTIED. REPORTS PAIN IS IMPROVED AND "MINIMIAL". NO FURTHER NEEDS AT THIS TIME. CALL LIGHT WITHIN REACH.
--- NOTE | 2024-02-13 04:23 | NUR ---
PATIENT RESTING IN BED. CPAP ON. RESPIRATIONS EVEN AND UNLABORED. CALL LIGHT WITHIN REACH.
[2024-02-13 05:31] VITALS: BP 92/58
[2024-02-13 05:40] VITALS: BP 92/58
--- NOTE | 2024-02-13 05:54 | NUR ---
PATIENT RESTING IN BED. VSS, ABD SOFT NON-TENDER. DRESSING TO MIDLINE REMAINS CDI. ALEKSANDR DRAINS EMPTIED. SEROSANG DRAINAGE NOTED. DENIES PAIN AT THIS TIME. CALL LIGHT WITHIN REACH.
--- NOTE | 2024-02-13 07:21 | NUR ---
PT IS RESTING EYES CLOSED AT TIME OF SHIFT REPORT, LEFT UNDISTURBED. CALL LIGHT AND NEEDED ITEMS ARE AT BEDSIDE
--- NOTE | 2024-02-13 08:42 | NUR ---
PT UP OUT OF BED INDEPENDANTLY PASSING STOOL AND DOING SELF CARES. RETURNS TO RECLINER FOR MORNING MEAL. PT AGREES TO WALK SEVERAL TIMES THIS SHIFT AND REPORT ANY NEEDS TO STAFF
--- NOTE | 2024-02-13 09:57 | NUR ---
DR PRO IN TO SEE PT DC PLANS FOR TOMORROW DISCUSSED. PT DENIES NEED OF ANYTHING. PT TOLERATES SMALL AMOUNT OF MORNING MEAL, BUT DOES DRINK ENTIRE ENSURE. SIPPING TEA NOW, DENIES NAUSEA. PAIN MEDS ADMINISTERED PER REQUEST
[2024-02-13] MEDS ORDERED: ACETAMINOPHEN 500 MG TAB PO PRN (10:00)
[2024-02-13] MEDS ORDERED: ondansetron HCL 4 MG/2 ML VIAL PO PRN (10:00)
[2024-02-13 10:05] VITALS: BP 101/68
--- NOTE | 2024-02-13 12:27 | NUR ---
PT CONTINUES UP IN THE CHIAR NOON MEAL IS SERVED AT THIS TIME. HE DENIES ANY PAIN OR NAUSEA CURRENTLY
--- NOTE | 2024-02-13 14:16 | NUR ---
PT UP TO AMBULATE THE LAW GOES 6 ROUNDS RETURNS TO RECLINER TO REST. FRESH H20 AND CALL LIGHT AT CHAIRSIDE
[2024-02-13 14:36] VITALS: BP 101/72
--- NOTE | 2024-02-13 16:20 | NUR ---
PT IN RECLINER RESTING EYES CLOSED
[2024-02-13 17:54] VITALS: BP 97/72
--- NOTE | 2024-02-13 19:30 | NUR ---
REPORT RECEIVED FROM SHAR OLIVO. pt UP IN CHAIR, TALKING ON PHONE. DENIES NEEDS AT THIS TIME. DENIES PAIN.
--- NOTE | 2024-02-13 21:00 | NUR ---
CALL LIGHT ANSWERED. ICE WATER REFILLED. URINAL EMPTIED. pt DENIES NEEDS AT THIS TIME. SITTING UP IN CHAIR.
[2024-02-13 21:36] VITALS: BP 104/70
--- NOTE | 2024-02-13 21:55 | NUR ---
pt AWAKE SITTING UP IN CHAIR. ASSESSMENT COMPLETE. MIGUELITO DRAIN EMPTIED, 10 MLS SS FLUID. pt REPORTS SMALL FORMED BM X 1. DOES COMPLAIN OF PAIN IN ABDOMEN, DENIES NEEDS AT THIS TIME. PUDDING PROVIDED WITH PO MEDICATIONS. VS COMPLETE. CALL LIGHT IN REACH.
--- NOTE | 2024-02-13 22:52 | NUR ---
pt UP AMBULATING IN HALLWAY, SBA WITH CANE, ARCHITECTURAL DRAFTSMAN SINTA AMBULATING WITH pt.
--- NOTE | 2024-02-13 23:07 | NUR ---
ACCOMPANIED PATIENT AMBULATE AROUND THE HALLWAY 6 LAPS. PATIENT IS BACK IN BED. 2 WARM BLANKET PROVIDED. DENIES FURTHER NEEDS AT THIS TIME.
--- NOTE | 2024-02-13 23:42 | NUR ---
CALL LIGHT ANSWERED. pt BACK TO BED FROM RESTROOM, VOID AND SMALL FORMED BM. pt RATES PAIN 7-8/10 IN ABD AND COMPLAINS OF RIGHT SIDE RIB PAIN. PRN PAIN MEDICATION ADMINISTERED. pt DENIES ADDITIONAL NEEDS. CALL LIGHT AND PERSONAL SUPPLIES IN REACH.
--- NOTE | 2024-02-14 01:35 | NUR ---
CALL LIGHT ANSWERED. FRESH ICE WATER PROVIDED. URINAL EMPTIED. BABY WIPES PROVIDED. WHITE BOARD UPDATED.
--- NOTE | 2024-02-14 02:33 | NUR ---
CHECKED ON pt. RESTING IN BED WITH EYES CLOSED, HOME CPAP ON. NO DISTRESS NOTED.
--- NOTE | 2024-02-14 04:15 | NUR ---
CHECKED ON pt. RESTING IN BED WITH CPAP ON. NO DISTRESS NOTED.
[2024-02-14 05:00] VITALS: BP 98/75
--- NOTE | 2024-02-14 05:05 | NUR ---
CALL LIGHT ANSWERED. ICE WATER PROVIDED. ASSESSMENT COMPLETE. MIGUELITO DRAIN EMPTIED 20 MLS SS DRAINAGE. BOWEL TONES ACTIVE. pt REPORTS SEMI SOFT FORMED STOOL. pt DENIES PAIN AT THIS TIME. REQUESTS ACCU CHECK "SO I KNOW HOW I NEED TO EAT TODAY" CBG 101. pt REQUESTING TO REST IN BED, CPAP ON.
[2024-02-14] MEDS ORDERED: IBLOOD GLUCOSE TEST STRIP 1 EA TEST VI PRN (05:15)
--- NOTE | 2024-02-14 06:50 | NUR ---
CALL LIGHT ANSWERED. PRN TYLENOL ADMINISTERED FOR 5/10 REPORTED ABDOMINAL PAIN THROUGHOUT ABDOMEN. ICE WATER REFILLED.
[2024-02-14 06:54] VITALS: BP 98/75
--- NOTE | 2024-02-14 07:11 | NUR ---
Report received from SHAR Horn. Patient resting in bed awake. Denies needs. Call light in reach.
[2024-02-14 09:04] VITALS: BP 95/68
--- NOTE | 2024-02-14 09:40 | NUR ---
PATIENT SITTING UP IN CHAIR. DENIES PAIN OR CONCERNS. CALL LIGHT IN REACH.
[2024-02-14 09:53] VITALS: BP 98/61
--- NOTE | 2024-02-14 10:10 | NUR ---
Spoke with Wilfrid. States he is doing well. Denies needs. Plans on dc today and plans on dc to home after he sees Dr. Hernandez.
--- NOTE | 2024-02-14 11:20 | NUR ---
PATIENT UP AMBULATING HALLWAY X 3 LOOPS WITH CANE AND SBA. TOLERATED WELL. HAD A BM. PATIENT REPORTED IT IS FIRMER THAN BEFORE. BACK TO CHAIR WITH CALL LIGHT IN REACH.
--- NOTE | 2024-02-14 11:24 | NUR ---
1025 VISITED PATIENT. VERY POSITIVE OUTLOOK AND ZULEIMA DISPOSITION. RECEPTIVE TO WORDS OF PRAYER, HEALING AND HOPE. EXTENDED COMFORT AND ENCOURAGEMENT.
[2024-02-14] MEDS ORDERED: TAMSULOSIN HCL0.4 MG PO (13:32)
[2024-02-14] MEDS ORDERED: AMOX TR-K CLV1 EACH PO (13:32)
[2024-02-14] MEDS ORDERED: ACETAMINOPHEN500 MG PO (13:32)
[2024-02-14] MEDS ORDERED: METRONIDAZOLE250 MG PO (13:32)
[2024-02-14] MEDS ORDERED: OXYCODON-ACETA1 EAC2 PO (13:33)
--- NOTE | 2024-02-14 14:03 | NUR ---
UR CLINICAL REVIEW: 2 MN FOR VERSALUS-MEETS CRITERIA FOR INPT STAY. MEDICARE INPT 02/10/24 @ 0548 ORDER MATCHES REG NO AUTH NEEDED PER MEDICARE GUIDELINES DISCHARGE TO HOME 02/14/24.
--- NOTE | 2024-02-15 16:35 | PATH ---
[facility] [address], [place] [address] Signed SPECIMEN(S): A ILEOSTOMY SPECIMEN(S): B HERNIA SAC SPECIMEN SOURCE: A. ILEOSTOMY B. HERNIA SAC CLINICAL HISTORY: History of total colectomy, ileostomy FINAL PATHOLOGIC DIAGNOSIS: A. Ileostomy: - Portion of benign small bowel and skin consistent with clinical ileostomy. B. Hernia sac: - Benign fibromembranous soft tissue. - Benign adipose tissue and vasculature. - Focal foreign body type reaction and mild mixed inflammation. JVR:cml MICROSCOPIC EXAMINATION: Histologic sections of all submitted blocks are examined by light microscopy. These findings, together with the gross examination, support the pathologic diagnosis. GROSS DESCRIPTION: A. The specimen, labeled and designated "Javid, ileostomy," is received in formalin is a 4.0 x 3.3 cm unoriented ellipse of skin with 3.0 x 2.8 cm exposed mucosa and nichol. The bowel mucosa dark red, congested. Supervisor Powdered Sugar sections are submitted in (A1). B. The specimen, labeled and designated "Javid, hernia sac," is received in formalin and consists of irregular shaped fibromembranous tissue fragment that measure six 6.7 x 5.2 x 0.7 cm. The outside surface is violaceous, focally congested. Sectioning through the specimen to reveal violaceous, focally congested fibromembranous tissue. Supervisor Powdered Sugar sections are submitted in (B1). JS (under the direct supervision of a pathologist) The Gross Description was prepared using a voice recognition system. The report was reviewed for accuracy; however, sound-alike word errors, addition and/or deletions may occur. If there is any question about this report, please contact Client Services. PATIENT NAME: DAVID POTTS PATHOLOGY DATE OF : 57 REPORT #: [id number] PHYSICIAN: CHARLES PATHOLOGY PCP: Tristan Carrera DO REPORT IS CONFIDENTIAL AND NOT TO BE RELEASED WITHOUT AUTHORIZATION [facility] [address] [place] [address] [place], [place] [address] Signed PERFORMING LABORATORY: Technical component was performed by [facility], [address] [place] [address] (CLIA# [id number]). Professional interpretation was performed by [facility] - [address] [id number] (CLIA#: [id number]). Diagnostician: Manuel Cardoso MD Pathologist Electronically Signed 02/15/2024 Copies: ~ PATIENT NAME: DAVID POTTS PATHOLOGY DATE OF : 57 REPORT #: [id number] PHYSICIAN: CHARLES PATHOLOGY PCP: Tristan Carrera DO REPORT IS CONFIDENTIAL AND NOT TO BE RELEASED WITHOUT AUTHORIZATION
== END 2024-02-14 15:50 | disposition home or self-care (01) | DRG 331 ==
LOC: DSVR 02-10 05:48 → MS 02-10 07:30
PROVIDERS: ADMIT Surgery; ATTEND Surgery
PROC: 0WQF0ZZ Repair Abdominal Wall, Open Approach (ICD-10-PCS; 2024-02-10)
PROC: 0T9B80Z Drainage of Bladder with Drainage Device, Via Natural or Artificial Opening Endoscopic (ICD-10-PCS; 2024-02-10)
PROC: 0DQB0ZZ Repair Ileum, Open Approach (ICD-10-PCS; principal; 2024-02-10 07:30)
PROC: 0DN80ZZ Release Small Intestine, Open Approach (ICD-10-PCS; 2024-02-10 07:30)
DX: Z43.2 Encounter for attention to ileostomy (principal); K43.2 Incisional hernia without obstruction or gangrene; E11.9 Type 2 diabetes mellitus without complications; N36.8 Other specified disorders of urethra; K66.0 Peritoneal adhesions (postprocedural) (postinfection); Z96.652 Presence of left artificial knee joint; Z96.612 Presence of left artificial shoulder joint; Z87.891 Personal history of nicotine dependence; Z90.49 Acquired absence of other specified parts of digestive tract; Z88.1 Allergy status to other antibiotic agents; Z91.040 Latex allergy status; Z88.8 Allergy status to other drugs, medicaments and biological substances; Z79.899 Other long term (current) drug therapy; Z79.4 Long term (current) use of insulin; Z86.718 Personal history of other venous thrombosis and embolism; Z79.85 Long-term (current) use of injectable non-insulin antidiabetic drugs
CPT/HCPCS: 00910; 36415; 76942; 80048; 85025; 88302; 88304; 94762; A9270; J0131; J1100; J1885; J2001; J2185; J2270; J2274; J2405; J2704; J2795; J3010; J3475; J3490; J7121

== ENCOUNTER 2024-02-25 15:09 | Emergency (ER) | payer MEDICARE, BC ==
[~2024-02-25] VITALS: Ht 172.7 cm; Wt 71.5 kg
[~2024-02-25 15:09] MED LIST changes: +MELATONIN10 M2 PO; +MET TOP; +[UNRECOGNIZED DRUG - OTHER] TOP
[2024-02-25] MEDS ORDERED: LOPERAMIDE2 MG PO (15:28)
[2024-02-25 15:50] VITALS: BP 107/77
== END 2024-02-25 15:50 | disposition home or self-care (01) ==
LOC: ED 15:09
DX: T81.31XA Disruption of external operation (surgical) wound, not elsewhere classified, initial encounter (principal); Y83.8 Other surgical procedures as the cause of abnormal reaction of the patient, or of later complication, without mention of misadventure at the time of the procedure; I12.9 Hypertensive chronic kidney disease with stage 1 through stage 4 chronic kidney disease, or unspecified chronic kidney disease; E11.22 Type 2 diabetes mellitus with diabetic chronic kidney disease; N18.30 Chronic kidney disease, stage 3 unspecified; J45.909 Unspecified asthma, uncomplicated; G80.9 Cerebral palsy, unspecified; Z88.8 Allergy status to other drugs, medicaments and biological substances; Z91.040 Latex allergy status; Z79.899 Other long term (current) drug therapy
CPT/HCPCS: 99283

== ENCOUNTER 2024-05-03 16:50 | Emergency (ER) | payer MEDICARE, BC ==
[~2024-05-03] VITALS: Ht 172.7 cm; Wt 62.7 kg
--- OUTSIDE RECORDS SUMMARY | ~2024-05-03 | XMS | Continuity of Care Document ---
Demographics + + + | Address | [facility] [address] | | | [place] [address] | + + + | Preferred Language | Unknown | + + + | Marital Status | | + + + | Congregation Affiliation | Unknown | + + + | Race | White | + + + | Ethnic Group | Not or | + + + Author + + + | Author | [facility] | + + + | Organization | [facility] | + + + | Address | [address] | | | [place] [address] | + + + | Phone | | + + + Care Team Providers + + + + | Care Software Design Engineer Name | Role | Phone | + + + + Unavailable | Unavailable | + + + + Unavailable | Unavailable | + + + + Allergies No information. Encounters No information. Functional Status No information. Immunizations No information. Medications + + + + | date | description | facility | + + + + | 2024-04-05 00:00 | Fluticasone Propionate 50 | [facility] | | | MCG/ACT Nasal Suspension | | + + + + | 2024-03-17 00:00 | Loperamide HCl 2 MG Oral | [facility] | | | Capsule | | + + + + | 2024-02-23 00:00 | Tamsulosin HCl 0.4 MG Oral | [facility] | | | Capsule, conventional | | + + + + | 2024-04-05 00:00 | fluticasone propionate | [facility] | | | 0.05 MG/ACTUAT Metered Dose | | | | Nasal [place] | | + + + + | 2024-02-25 00:00 | FreeStyle Britta 3 Sensor | [facility] | | | Miscellaneous (not | | | | specified) | | + + + + | 2024-02-28 00:00 | FreeStyle Britta 3 Sensor | [facility] | | | Miscellaneous (not | | | | specified) | | + + + + | 2024-02-28 00:00 | Ozempic (0.25 or 0.5 | [facility] | | | MG/DOSE) 2 MG/3ML | | | | Subcutaneous Solution | | | | Pen-injector | | + + + + | 2024-02-28 00:00 | 0.25 MG, 0.5 MG Dose 3 ML | [facility] | | | semaglutide 0.68 MG/ML Pen | | | | Injector [Ozempic] | | + + + + | 2024-02-23 00:00 | tamsulosin hydrochloride | [facility] | | | 0.4 MG Oral Capsule | | + + + + | 2024-03-17 00:00 | loperamide hydrochloride 2 | [facility] | | | MG Oral Capsule | | + + + + Problems No information. Procedures + + + + | date | description | facility | + + + + | 2024-04-05 00:00 | Tobacco use assessed | [facility] | + + + + | 2024-04-05 00:00 | Controlling Blood | [facility] | | | Pressure; Most recent | | | | Systolic <130mm Hg | | + + + + | 2024-04-05 00:00 | Controlling BP; Most | [facility] | | | recent Diastolic BP < 80mm | | | | Hg | | + + + + | 2024-04-05 00:00 | Annual Depression | [facility] | | | Screening; 15 Minutes | | + + + + Results/Labs +--------+--------+ +---------+--------+---------+ | test | date | facility | value | unit | notes | +--------+--------+ +---------+--------+---------+ + + | IRON DEFICIENCY PANEL | + + + + + + + + + | FERRITIN | 2024-03-29 | [facility] | 198.0 | ng/ml | (missing) | | | 11:31 | [facility] | [facility] | | | Group | | | | + + + + + + + | IRON | 2024-03-29 | [facility] | 61.50 | ug/dL | (missing) | | | 11:31 | [facility] | | | | | | | Group | | | | + + + + + + + | TIBC | 2024-03-29 | [facility] | 357 | ug/dL | (missing) | | | 11:31 | [facility] | | | | | | | Group | | | | + + + + + + + | UIBC | 2024-03-29 | [facility] | 296 | (missing) | (missing) | | | 11:31 | Medical | | | | | | | Group | | | | + + + + + + + | % | 2024-03-29 | [facility] | 17.2 | % | (missing) | | SATURATION | 11:31 | Medical | | | | | | | Group | | | | + + + + + + + | TRANSFERRIN | 2024-03-29 | [facility] | 254.73 | mg/dL | (missing) | | | 11:31 | Medical | | | | | | | Group | | | | + + + + + + + + + | LIPID PANEL | + + + + + +--------+ + + | VLDL | 2024-03-29 | [facility] | 31 | mg/dL | (missing) | | | 11:31 | Medical | | | | | | | Group | | | | + + + +--------+ + + | LDL | 2024-03-29 | [facility] | 15 | mg/dL | (missing) | | | 11:31 | Medical | | | | | | | Group | | | | + + + +--------+ + + | HDL | 2024-03-29 | [facility] | 34.1 | mg/dL | (missing) | | | 11:31 | Medical | | | | | | | Group | | | | + + + +--------+ + + | CHOLESTEROL | 2024-03-29 | [facility] | 80 | mg/dL | (missing) | | | 11:31 | Medical | | | | | | | Group | | | | + + + +--------+ + + | | 2024-03-29 | [facility] | 153 | mg/dL | (missing) | | TRIGLYCERIDE | 11:31 | Medical | | | | | S | | Group | | | | + + + +--------+ + + | NON-HDL | 2024-03-29 | [facility] | 46 | mg/dL | (missing) | | CHOL | 11:31 | Medical | | | | | | | Group | | | | + + + +--------+ + + | CHOL/HDL | 2024-03-29 | [facility] | 2.3 | (missing) | (missing) | | | 11:31 | Medical | | | | | | | Group | | | | + + + +--------+ + + + + | COMPREHENSIVE METABOLIC PANEL | + + + + + +--------+ + + | GLOBULIN | 2024-03-29 | [facility] | 2.8 | g/dl | (missing) | | | 11:31 | Medical | | | | | | | Group | | | | + + + +--------+ + + | ALKALINE | 2024-03-29 | [facility] | 105 | U/L | (missing) | | PHOS | 11:31 | Medical | | | | | | | Group | | | | + + + +--------+ + + | ALT(SGPT) | 2024-03-29 | [facility] | 15 | U/L | (missing) | | | 11:31 | Medical | | | | | | | Group | | | | + + + +--------+ + + | ALBUMIN | 2024-03-29 | [facility] | 4.7 | g/dl | (missing) | | | 11:31 | Medical | | | | | | | Group | | | | + + + +--------+ + + | A/G RATIO | 2024-03-29 | [facility] | 1.7 | (missing) | (missing) | | | 11:31 | Medical | | | | | | | Group | | | | + + + +--------+ + + | CALCIUM | 2024-03-29 | [facility] | 10.8 | mg/dL | (missing) | | | 11:31 | Medical | | | | | | | Group | | | | + + + +--------+ + + | ANION GAP | 2024-03-29 | [facility] | 16.7 | (missing) | (missing) | | | 11:31 | Medical | | | | | | | Group | | | | + + + +--------+ + + | AST(SGOT) | 2024-03-29 | [facility] | 20 | U/L | (missing) | | | 11:31 | Medical | | | | | | | Group | | | | + + + +--------+ + + | BILIRUBIN, | 2024-03-29 | [facility] | 0.82 | mg/dL | (missing) | | TOTAL | 11:31 | Medical | | | | | | | Group | | | | + + + +--------+ + + | CARBON | 2024-03-29 | [facility] | 28 | meq/L | (missing) | | DIOXIDE | 11:31 | Medical | | | | | | | Group | | | | + + + +--------+ + + | CHLORIDE | 2024-03-29 | [facility] | 88 | meq/L | (missing) | | | 11:31 | Medical | | | | | | | Group | | | | + + + +--------+ + + | CREATININE, | 2024-03-29 | [facility] | 2.67 | mg/dL | (missing) | | SERUM | 11:31 | Medical | | | | | | | Group | | | | + + + +--------+ + + | GLUCOSE | 2024-03-29 | [facility] | 96 | mg/dL | (missing) | | | 11:31 | Medical | | | | | | | Group | | | | + + + +--------+ + + | POTASSIUM | 2024-03-29 | [facility] | 4.7 | meq/L | (missing) | | | 11:31 | Medical | | | | | | | Group | | | | + + + +--------+ + + | PROTEIN | 2024-03-29 | [facility] | 7.5 | g/dL | (missing) | | | 11:31 | Medical | | | | | | | Group | | | | + + + +--------+ + + | SODIUM | 2024-03-29 | [facility] | 128 | meq/L | (missing) | | | 11:31 | Medical | | | | | | | Group | | | | + + + +--------+ + + | UREA | 2024-03-29 | [facility] | 80 | mg/dL | (missing) | | NITROGEN | 11:31 | Medical | | | | | | | Group | | | | + + + +--------+ + + | | 2024-03-29 | [facility] | 30.0 | (missing) | (missing) | | BUN/CREAT.RA | 11:31 | Medical | | | | | BRUNA | | Group | | | | + + + +--------+ + + | GFR | 2024-03-29 | [facility] | 25 | ml/min | (missing) | | ESTIMATION | 11:31 | Medical | | | | | | | Group | | | | + + + +--------+ + + + + | HEMOGLOBIN A1C PANEL | + + + + + +-------+---------+ + | EST AVG | 2024-03-29 | [facility] | 111 | mg/dL | (missing) | | GLUCOSE | 11:31 | Medical | | | | | | | Group | | | | + + + +-------+---------+ + | HEMOGLOBIN | 2024-03-29 | [facility] | 5.5 | % | (missing) | | A1C | 11:31 | Medical | | | | | | | Group | | | | + + + +-------+---------+ + + + | VITAMIN D 25-OH | + + + + + +------+---------+ + | VITAMIN D | 2024-03-29 | [facility] | 38 | ng/mL | (missing) | | 25-OH | 11:31 | Medical | | | | | | | Group | | | | + + + +------+---------+ + +-------+ | CBC | +-------+ + + + +--------+--------+ + | HEMOGLOBIN | 2024-03-29 | [facility] | 12.9 | g/dl | (missing) | | | 11:31 | Medical | | | | | | | Group | | | | + + + +--------+--------+ + | RDW | 2024-03-29 | [facility] | 15.3 | % | (missing) | | | 11:31 | Medical | | | | | | | Group | | | | + + + +--------+--------+ + | HEMATOCRIT | 2024-03-29 | [facility] | 38.8 | % | (missing) | | | 11:31 | Medical | | | | | | | Group | | | | + + + +--------+--------+ + | MONOCYTES | 2024-03-29 | [facility] | 8.9 | % | (missing) | | | 11:31 | Medical | | | | | | | Group | | | | + + + +--------+--------+ + | WBC | 2024-03-29 | [facility] | 5.2 | K/ul | (missing) | | | 11:31 | Medical | | | | | | | Group | | | | + + + +--------+--------+ + | BASOPHILS | 2024-03-29 | [facility] | 0.9 | % | (missing) | | | 11:31 | Medical | | | | | | | Group | | | | + + + +--------+--------+ + | EOSINOPHILS | 2024-03-29 | [facility] | 5.5 | % | (missing) | | | 11:31 | Medical | | | | | | | Group | | | | + + + +--------+--------+ + | LYMPHOCYTES | 2024-03-29 | [facility] | 10.7 | % | (missing) | | | 11:31 | Medical | | | | | | | Group | | | | + + + +--------+--------+ + | NEUTROPHILS | 2024-03-29 | [facility] | 74.0 | % | (missing) | | | 11:31 | Medical | | | | | | | Group | | | | + + + +--------+--------+ + | PLATELET | 2024-03-29 | [facility] | 183 | K/ul | (missing) | | COUNT | 11:31 | Medical | | | | | | | Group | | | | + + + +--------+--------+ + | MCH | 2024-03-29 | [facility] | 28 | pg | (missing) | | | 11:31 | Medical | | | | | | | Group | | | | + + + +--------+--------+ + | MCHC | 2024-03-29 | [facility] | 33 | g/dL | (missing) | | | 11:31 | Medical | | | | | | | Group | | | | + + + +--------+--------+ + | MCV | 2024-03-29 | [facility] | 85.0 | fl | (missing) | | | 11:31 | Medical | | | | | | | Group | | | | + + + +--------+--------+ + | RBC | 2024-03-29 | [facility] | 4.56 | M/ul | (missing) | | | 11:31 | Medical | | | | | | | Group | | | | + + + +--------+--------+ + + + | Reported Physicians | + + + + + + + + + | Reported | 2024-03-29 | [facility] | See Note | (missing) | (missing) | | Physicians | 11:31 | Medical | | | | | | | Group | | | | + + + + + + + Social History + + + + | date | description | facility | + + + + | 2024-04-06 00:00 | Ex-smoker (finding) | [facility] | + + + + | 2024-04-28 00:00 | Ex-smoker (finding) | [facility] | + + + + Vital Signs + + + + + | date | measurement | value | units | + + + + + | 2024-04-05 00:00 | BMI | 22.7 | 1 | + + + + + | 2024-04-05 00:00 | BP_diastolic | 62 | mmHg | + + + + + | 2024-04-05 00:00 | BP_systolic | 98 | mmHg | + + + + + | 2024-04-05 00:00 | BSA | 1.8 | 1 | + + + + + | 2024-04-05 00:00 | heart_rate | 1|1| | completed | + + + + + | 2024-04-05 00:00 | heart_rate | 72 | /min | + + + + + | 2024-04-05 00:00 | height_metric | 170.18 | cm | + + + + + | 2024-04-05 00:00 | height_standard | 67 | in | + + + + + | 2024-04-05 00:00 | o2_saturation | 98 | % | + + + + + | 2024-04-05 00:00 | respiration_rate | 16 | /min | + + + + + | 2024-04-05 00:00 | temperature_metric | 36.22 | C | | | | | | + + + + + | 2024-04-05 00:00 | | 97.2 | F | | | temperature_standar | | | | | d | | | + + + + + | 2024-04-05 00:00 | weight_metric | 65.77 | kg | + + + + + | 2024-04-05 00:00 | weight_standard | 145 | lb | + + + + + | 2024-04-27 00:00 | BP_diastolic | 77 | mmHg | + + + + + | 2024-04-27 00:00 | BP_systolic | 113 | mmHg | + + + + + | 2024-04-27 00:00 | heart_rate | 80 | /min | + + + + + | 2024-04-27 00:00 | height_metric | 170.18 | cm | + + + + + | 2024-04-27 00:00 | height_standard | 67 | in | + + + + + | 2024-04-27 00:00 | temperature_metric | 36.44 | C | | | | | | + + + + + | 2024-04-27 00:00 | | 97.6 | F | | | temperature_standar | | | | | d | | | + + + + +"
[~2024-05-03 16:50] MED LIST changes: +LOPERAMIDE2 MG PO
[2024-05-03] MEDS ORDERED: SODIUM CHLORIDE 0.9% 500 ML IV PRN (21:15)
[2024-05-03] MEDS ORDERED: fentaNYL citrate 100 MCG/2 ML VIAL IV ONE (21:30)
[2024-05-03] MEDS ORDERED: propofoL 200 MG/20 ML VIAL IV ONE (21:30)
[2024-05-03] MEDS ORDERED: HYDROCODON-ACE1 EA10 PO (23:29)
[2024-05-03] MEDS ORDERED: HYDROCODONE BIT/ACETAMINOPHEN 5/325 MG 1 TAB HOME.PACK PO ONE (23:45)
[2024-05-03 23:47] VITALS: BP 100/70
== END 2024-05-04 00:27 | disposition home or self-care (01) ==
LOC: ED 16:50
DX: M24.412 Recurrent dislocation, left shoulder (principal); M25.312 Other instability, left shoulder; W18.30XA Fall on same level, unspecified, initial encounter; G80.9 Cerebral palsy, unspecified; I12.9 Hypertensive chronic kidney disease with stage 1 through stage 4 chronic kidney disease, or unspecified chronic kidney disease; E11.22 Type 2 diabetes mellitus with diabetic chronic kidney disease; N18.30 Chronic kidney disease, stage 3 unspecified; J45.909 Unspecified asthma, uncomplicated; Z88.8 Allergy status to other drugs, medicaments and biological substances; Z91.040 Latex allergy status; Z88.3 Allergy status to other anti-infective agents; Z79.899 Other long term (current) drug therapy; Z96.612 Presence of left artificial shoulder joint; Z96.611 Presence of right artificial shoulder joint; Z96.652 Presence of left artificial knee joint
CPT/HCPCS: 70450; 73030; 96374; 96375; 99284-25; A9270; J2704; J3010; J7040

== ENCOUNTER 2024-08-25 18:27 | Emergency (ER) | payer OTHER, MEDICARE, BC ==
[~2024-08-25] VITALS: Ht 172.7 cm; Wt 71.2 kg
--- OUTSIDE RECORDS SUMMARY | ~2024-08-25 | XMS | Continuity of Care Document ---
Demographics + + + | Address | [facility] [address] | | | [place] [address] | + + + | Preferred Language | Unknown | + + + | Marital Status | | + + + | Methodist Affiliation | Unknown | + + + | Race | White | + + + | Ethnic Group | Not or | + + + Author + + + | Author | [facility] | + + + | Organization | [facility] | + + + | Address | [address] | | | [place] [address] | + + + | Phone | | + + + Care Team Providers + + + + | Care Medical Parasitologist Name | Role | Phone | + + + + Unavailable | Unavailable | + + + + Unavailable | Unavailable | + + + + Allergies No information. Encounters No information. Functional Status No information. Immunizations No information. Medications + + + + | date | description | facility | + + + + | 2024-06-19 00:00 | amlodipine 5 MG Oral | [email or web address] | | | Tablet | | + + + + | 2024-06-05 00:00 | FreeStyle Britta 3 Plus | [email or web address] | | | Sensor Miscellaneous | | + + + + | 2024-06-19 00:00 | amLODIPine Besylate 5 MG | [email or web address] | | | Oral Tablet | | + + + + Problems No information. Procedures + + + + | date | description | facility | + + + + | 2024-07-17 00:00 | Tobacco use assessed | [facility] | | | | | + + + + | 2024-07-17 00:00 | Controlling Blood | [facility] | | | Pressure; Most recent | | | | Systolic <130mm Hg | | + + + + | 2024-07-17 00:00 | Controlling BP; Most | [facility] | | | recent Diastolic BP < 80mm | | | | Hg | | + + + + Results/Labs No information. Social History + + + + | date | description | facility | + + + + | 2024-07-18 00:00 | Ex-smoker (finding) | [facility] | | | | | + + + + Vital Signs + + + +---------+ | date | measurement | value | units | + + + +---------+ | 2024-07-17 00:00 | BMI | 22.2 | 1 | + + + +---------+ | 2024-07-17 00:00 | BP_diastolic | 68 | mmHg | + + + +---------+ | 2024-07-17 00:00 | BP_systolic | 103 | mmHg | + + + +---------+ | 2024-07-17 00:00 | BSA | 1.7 | 1 | + + + +---------+ | 2024-07-17 00:00 | heart_rate | 71 | /min | + + + +---------+ | 2024-07-17 00:00 | height_metric | 170.18 | cm | + + + +---------+ | 2024-07-17 00:00 | height_standard | 67 | in | + + + +---------+ | 2024-07-17 00:00 | temperature_metric | 36.67 | C | | | | | | + + + +---------+ | 2024-07-17 00:00 | | 98 | F | | | temperature_standar | | | | | d | | | + + + +---------+ | 2024-07-17 00:00 | weight_metric | 64.23 | kg | + + + +---------+ | 2024-07-17 00:00 | weight_standard | 141.6 | lb | + + + +---------+"
[~2024-08-25 18:27] MED LIST changes: +CLARITIN10 M2 PO; +HYDROCODON-ACE1 EA10 PO; +MAGNESIUM400 MG PO; +OZEMPIC0.25 MG/02 SQ
[2024-08-25] MEDS ORDERED: DIPHTH,PERTUSS(ACELL),TET VAC 0.5 ML SYRINGE IM ONE (19:45)
[2024-08-25 21:01] VITALS: BP 101/77
== END 2024-08-25 21:00 | disposition home or self-care (01) ==
LOC: ED 18:27
DX: S01.01XA Laceration without foreign body of scalp, initial encounter (principal); W01.0XXA Fall on same level from slipping, tripping and stumbling without subsequent striking against object, initial encounter; I12.9 Hypertensive chronic kidney disease with stage 1 through stage 4 chronic kidney disease, or unspecified chronic kidney disease; E11.22 Type 2 diabetes mellitus with diabetic chronic kidney disease; N18.30 Chronic kidney disease, stage 3 unspecified; J45.909 Unspecified asthma, uncomplicated; G80.9 Cerebral palsy, unspecified; Z23 Encounter for immunization; Z88.8 Allergy status to other drugs, medicaments and biological substances; Z91.040 Latex allergy status; Z79.899 Other long term (current) drug therapy
CPT/HCPCS: 70450; 90471; 90715; 99283-25

== ENCOUNTER 2025-01-04 08:56 | Day surgery (SDC) | payer MEDICARE, BC ==
[2024-12-25 15:29] VITALS: BP 97/64
[2025-01-04] VITALS (9 sets, daily range): BP systolic 89–113; BP diastolic 53–68
[~2025-01-04] VITALS: Ht 172.7 cm; Wt 72.7 kg
[~2025-01-04 08:56] MED LIST changes: +AVEIDA 1%-1% GE30 GM TOP; +CEFAZOLIN SODIUM 2 GM/20 ML SYR IV SCH; +COZAAR50 MG PO; +DIPHENOXYLATE-1 EACH PO; +IBLOOD GLUCOSE TEST STRIP 1 EA TEST VI PRN; +LACTATED RINGER'S 1,000 ML IV SCH; +LATANOPROST2.5 ML OU; +LIDOCAINE HCL 1% 5 ML SDV INJ ONE
[2025-01-04] MEDS ORDERED: AZELASTINE HCL6 ML OU (09:25)
[2025-01-04] MEDS ORDERED: INDAPAMIDE1.25 MG PO (09:26)
[2025-01-04] MEDS ORDERED: VENTOLIN HFA18 GM INH (09:28)
[2025-01-04] MEDS ORDERED: AVEIDA 1%-1% GE30 GM TOP (09:28)
[2025-01-04] MEDS ORDERED: LACTATED RINGER'S 1,000 ML IV SCH (10:00)
[2025-01-04] MEDS ORDERED: diphenhydrAMINE HCL 25 MG CAP PO PRN (10:00)
[2025-01-04] MEDS ORDERED: ondansetron HCL 4 MG/2 ML VIAL IV PRN (10:00)
[2025-01-04] MEDS ORDERED: OXYCODONE/APAP 5/325 TAB PO PRN (10:00)
[2025-01-04] MEDS ORDERED: MORPHINE SULFATE 4 MG/ML VIAL IV PRN (10:00)
[2025-01-04] MEDS ORDERED: fentaNYL citrate 100 MCG/2 ML VIAL ONE ×2 (10:15→10:58)
[2025-01-04] MEDS ORDERED: LIDOCAINE HCL 2% 5 ML SDV ONE (10:15)
[2025-01-04] MEDS ORDERED: DEXAMETHASONE SOD PHOS 4 MG/ML VIAL ONE (10:15)
[2025-01-04] MEDS ORDERED: propofoL 200 MG/20 ML VIAL ONE (10:15)
[2025-01-04] MEDS ORDERED: ALBUTEROL SULFATE 8 GM INH INH PRN (10:15)
[2025-01-04] MEDS ORDERED: ACETAMINOPHEN 1,000 MG/100 ML VIAL ONE (10:15)
[2025-01-04] MEDS ORDERED: ePHEDrine sulfate 50 MG/ML AMP ONE (10:33)
--- NOTE | 2025-01-04 11:33 | NUR ---
01/04/25 1133 Kate Aden 1123-PATIENT ARRIVED TO PACU ON 6L MASK RR EVEN. PATIENT REACTIVE TO VERBAL STIMULI VERY DROWSY DENIES PAIN OR NAUSEA. SR HR 60'S ONEIL CATHETER IN PLACE CLEAR CBI. GLUCOSE CHECKED 88. IVF INFUSING 1130-PATIENT AWAKE PLACED ON RA RR EVEN DENIES PAIN OR NAUSEA. SR HR 70'S.
[2025-01-04] MEDS ORDERED: NALOXONE HCL 0.4 MG SYR IV PRN (12:00)
[2025-01-04] MEDS ORDERED: DEXTROSE 50% 50 ML SYR IV PRN ×2 (12:00)
[2025-01-04] MEDS ORDERED: IBLOOD GLUCOSE TEST STRIP 1 EA TEST XX SCH (12:00)
[2025-01-04] MEDS ORDERED: fentaNYL citrate 50 MCG/ML SDV IV PRN (12:00)
[2025-01-04] MEDS ORDERED: IBLOOD GLUCOSE TEST STRIP 1 EA TEST XX PRN (12:00)
[2025-01-04] MEDS ORDERED: DEXTROSE 5% 1,000 ML IV PRN (12:00)
[2025-01-04] MEDS ORDERED: GLUCAGON,HUMAN RECOMBINANT 1 MG/ML VIAL SUB-Q PRN (12:00)
[2025-01-04] MEDS ORDERED: Insulin Regular, Human 100 UNIT/ML ML SUB-Q SCH (12:00)
--- NOTE | 2025-01-04 12:00 | NUR ---
PATIENT ARRIVES TO FLOOR IN STRETCHER, ASSISTED TO TRANSFER FROM STRETCHER TO HOSPITAL BED WITH MINIMAL ASSIST. PATIENT IS AWAKE AND ALERT AND CONVERSANT. REPORT RECEIVED FROM SHAR TALAVERA. VS AND WEIGHT OBTAINED. PATIENT REPORTS FEELING HUNGRY WELL ITCHY AND IS REQUESTING ORAL BENADRYL. PATIENT MADE COMFORTABLE. DIETARY CALLED TO REQUEST LUNCH TRAY. PATIENT HAS NO OTHER REQUESTS AT THIS TIME, CALL LIGHT AND PERSONAL BELONGINGS IN REACH.
--- NOTE | 2025-01-04 12:46 | NUR ---
PATIENT EATING LUNCH TRAY AT THIS TIME, CALCULATES ALL CARBS AND SUGARS THROUGH NICOLE ON HIS PHONE. IRRIGATION IN PLACE ON IV POLE AT FOOT OF BED, CONTINUES TO FLUSH WITH ONEIL CATH TO BEDSIDE CONTAINING CLEAR TO FAINTLY PINK URINE/IRRIGATION. IV TO PATIENT'S R HAND IS FLUSHED AND SALINE LOCKED. PATIENT REPORTS NO PAIN OR NAUSEA. ADMISSION COMPLETE EXCEPT FOR ASSESSMENT TO ALLOW PATIENT TO EAT LUNCH. NO REQUESTS AT THIS TIME, CALL LIGHT AND PERSONAL BELONGINGS IN REACH.
--- NOTE | 2025-01-04 13:20 | NUR ---
PATIENT URINE/IRRIGATION MAINTAINS CLEAR TO ONLY FAINT PINK TINGE X1HR. ONEIL CATH IRRIGATION CLAMPED PER MD ORDERS. ONEIL CATHETER EMPTIED. PATIENT FINISHES LUNCH, TRAY REMOVED. PATIENT REQUESTING COFFEE - PROVIDED BY SYLVIA LAWRENCE. CALL LIGHT AND PERSONAL BELONGINGS IN REACH.
--- NOTE | 2025-01-04 13:41 | NUR ---
INTO SEE PATIENT. PERSONAL HEALTH INFORMATION REVIEWED. PATIENT LIVES IN A HOUSE. 3 STEPS INSIDE. DENIES DIFFCULTY DOING THEM. LIVES AT HOME WITH . USES CANE MOSTLY BUT HAS A WALKER. PATIENT DRIVES. DENIES DIFFCULTY PAYING UTILITIES OR OBTAINING FOOD.
[2025-01-04] MEDS ORDERED: ALBUTEROL SULFATE 0.083% 3 ML VIAL INH PRN (15:00)
--- NOTE | 2025-01-04 15:02 | NUR ---
PATIENT COMPLAINS OF FULLNESS IN HIS BLADDER. BLADDER SCANNER SHOWS 1ML, ONEIL CATH BALLOON VISIBLE WITH SCANNER. ONEIL CATH DRAINING FREELY TO BEDSIDE. PATIENT EDUCATED ON DISCOMFORT FOLLOWING TURP PROCEDURE, VERBALIZES UNDERSTANDING. NO REQUESTS, CALL LIGHT AND PERSONAL BELONGINGS IN REACH.
--- NOTE | 2025-01-04 15:13 | NUR ---
MD NOTIFIED OF PATIENT'S BLOOD PRESSURES. MD GIVES ORDER FOR LR AT 50ML/HR.
--- NOTE | 2025-01-04 15:19 | NUR ---
IVF STARTED AT 50ML/HR ORDERED. PATIENT RESTING IN BED AWAKE AND ALERT, CONVERSING WITH THIS RN. ONEIL CATH TO BEDSIDE DRAINING FREELY, URINE HAS DARKENED SLIGHTLY, STILL MAINLY PINK-TINGED. PATIENT HAS NO REQUESTS, CALL LIGHT AND PERSONAL BELONGINGS IN REACH.
[2025-01-04] MEDS ORDERED: ONDANSETRON ODT4 MG PO (15:38)
[2025-01-04] MEDS ORDERED: SEVOFLURANE 250 ML BTL INH ONE (15:43)
[2025-01-04] MEDS ORDERED: IVIZIA 0.5% EYE5 ML OU (15:43)
--- NOTE | 2025-01-04 15:45 | NUR ---
MED REC COMPLETE
--- NOTE | 2025-01-04 19:10 | NUR ---
REPORT RECEIVED FROM EFRAIN MYLES. BOARD UPDATED. pt DENIES ANY OTHER NEEDS AT THIS TIME. CALL LIGHT WITHIN REACH.
--- NOTE | 2025-01-04 20:40 | NUR ---
ASSESSMENT AND VITAL SIGNS DONE. pt URINE IN THE TUBE IS LIGHT PINK. CBI CAPPED AT 1920. BG CHECKED WITH A RESULTS OF 213. SS INSULIN ADMINISTERED. SCHEDULED MEDS ADMINISTERED. IV ASSESSED, WNL. pt DENIES ANY OTHER NEEDS AT THIS TIME. CALL LIGHT WITHIN REACH.
[2025-01-04] MEDS ORDERED: INDAPAMIDE 2.5 MG TAB PO SCH (21:00)
--- NOTE | 2025-01-04 23:35 | NUR ---
pt RESTING IN THE BED. pt DENIES ANY OTHER NEEDS AT THIS TIME. CALL LIGHT WITHIN REACH.
[2025-01-05] VITALS (7 sets, daily range): BP systolic 106–115; BP diastolic 65–70
--- NOTE | 2025-01-05 01:26 | NUR ---
pt SITTING UP IN THE BED READING. pt PROVIDED WITH A SNACK. pt DENIES ANY OTHER NEEDS AT THIS TIME. CALL LIGHT WITHIN REACH.
--- NOTE | 2025-01-05 01:49 | NUR ---
TREATING PLANT PUMPER OBTAINED VITALS AND I&O. ICE WATER REFILLED. PT STATES NO FURTHER NEEDS AT THIS TIME. CALL LIGHT WITHIN REACH.
--- NOTE | 2025-01-05 03:17 | NUR ---
pt RESTING IN THE BED WITH EYES CLOSED. RR EVEN AND UNLABORED. CALL LIGHT WITHIN REACH.
--- NOTE | 2025-01-05 05:30 | NUR ---
MATH AND SCIENCE INSTRUCTOR OBTAINED VITALS AND I&O. PT STATES NO NEEDS AT THIS TIME. CALL LIGHT WITHIN REACH.
--- NOTE | 2025-01-05 06:20 | NUR ---
ASSESSMENT DONE. SCDS ON. URINE CLEAR IN THE LINE. pt DENIES ANY OTHER NEEDS AT THIS TIME. CALL LIGHT WITHIN REACH.
[2025-01-05] MEDS ORDERED: CEFTRIAXONE SODIUM 1 GM in SODIUM CHLORIDE 0.9% 100 ML IV SCH (07:00)
--- NOTE | 2025-01-05 07:06 | NUR ---
REPORT RECEIVED FROM SHAR KELLER. PATIENT RESTING IN BED WITH EYES CLOSED, RR EVEN AND UNLABORED, HOME CPAP ON WITH CPOX AT BEDSIDE. CALL LIGHT AND PERSONAL BELONGINGS IN REACH. ONEIL CATH TO BEDSIDE DRAINING WITH CLEAR, YELLOW URINE.
--- NOTE | 2025-01-05 08:57 | NUR ---
MEDICATION ADMINISTERED, SEE MAR. PATIENT SALINE LOCKED AT THIS TIME, PATIENT AMBULATES WITH PERSONAL CANE AND SBA FROM BED TO BATHROOM AND REPORTS HE IS VERY MUCH LOOKING FORWARD TO GOING HOME. PATIENT REQUESTS WIPES AND GLOVES FOR USING THE RESTROOM - PROVIDED. PATIENT VERBALIZES UNDERSTANDING OF PUTTING WIPES INTO TRASHCAN AND NOT THE TOILET. PATIENT VERBALIZES UNDERSTANDING OF USING THE PULL CORD WHEN HE IS FINISHED.
[2025-01-05] MEDS ORDERED: CEPHALEXIN500 M1 PO (08:59)
[2025-01-05] MEDS ORDERED: OXYCODONE HCL5 MG PO (09:00)
[2025-01-05] MEDS ORDERED: FAMOTIDINE 20 MG TAB PO SCH (09:00)
[2025-01-05] MEDS ORDERED: AMLODIPINE BESYLATE 5 MG TAB PO SCH (09:00)
[2025-01-05] MEDS ORDERED: LOSARTAN POTASSIUM 100 MG TAB PO SCH (09:00)
[2025-01-05] MEDS ORDERED: INDAPAMIDE 2.5 MG TAB PO SCH (09:00)
--- NOTE | 2025-01-05 09:42 | NUR ---
IV IS OUT.
--- NOTE | 2025-01-11 15:31 | PATH ---
[facility] [address] [place], [place] [address] Signed SPECIMEN(S): A PROSTATE CHIPS SPECIMEN SOURCE: A. PROSTATE [place] CLINICAL HISTORY: Bladder outlet obstruction. Post: TURP. FINAL PATHOLOGIC DIAGNOSIS: Prostate chips: - Prostatic adenocarcinoma. - Predicted [place] score: 3+3=6/. - WHO Grade Group: 1. - Tumor quantitation: - Tumor involves less than 5% of prostatic tissue. - Perineural invasion: Not identified. COMMENT: As part of [facility]' Quality Improvement Program, this case was reviewed by another member of our pathology staff. JVR:clv MICROSCOPIC EXAMINATION: Histologic sections of all submitted blocks are examined by light microscopy. These findings, together with the gross examination, support the pathologic diagnosis. Immunohistochemical staining, with appropriately reactive controls, for p63, high molecular weight cytokeratin, and AMACR (TriCAP--prostate cocktail multiplex stain) was performed on block A4. There is a complete absence of basal marker (p63, HMWK) expression combined with cytoplasmic AMACR expression in the focus/foci of interest. These results support the diagnosis of prostatic adenocarcinoma. JVR:clv GROSS DESCRIPTION: The specimen, labeled and designated "Meredith Hua, prostate chips," is received in formalin is a five g, 5.2 x 4.6 x 0.7 cm aggregate of pink-jones to ontiveros rubbery soft tissue. The specimen is entirely submitted in (A1-A5). FB (under the direct supervision of a pathologist) The Gross Description was prepared using a voice recognition system. The report PATIENT NAME: DAVID HUA PATHOLOGY DATE OF : 57 REPORT #: [id number] PHYSICIAN: CHARLES BURT PCP: Tristan Carrera DO REPORT IS CONFIDENTIAL AND NOT TO BE RELEASED WITHOUT AUTHORIZATION [facility] [address] [place], [place] [address] Signed was reviewed for accuracy; however, sound-alike word errors, addition and/or deletions may occur. If there is any question about this report, please contact Client Services. ADDITIONAL NOTES: Immunohistochemical and/or in situ hybridization studies were performed on this case with the appropriate positive controls that react as expected. This test was developed and its performance characteristics determined by [facility]. It has not been cleared or approved by the U.S. Food and Drug Administration. The FDA has determined that such clearance or approval is not necessary. This test is used for clinical purposes. It should not be regarded as investigational or for research. [facility] is certified under the Clinical Laboratory Improvement Amendments of 1988 (CLIA) as qualified to perform high complexity clinical laboratory testing. PERFORMING LABORATORY: Technical component was performed by [facility], [address] [place] [id number] (CLIA# [id number]). Professional interpretation was performed by [facility], [address] [place] [id number] (CLIA#: [id number]). Diagnostician: Manuel Cardoso MD Pathologist Electronically Signed 01/11/2025 Copies: ~ PATIENT NAME: DAVID HUA PATHOLOGY DATE OF : 57 REPORT #: [id number] PHYSICIAN: CHARLES PATHOLOGY PCP: Tristan Carrera DO REPORT IS CONFIDENTIAL AND NOT TO BE RELEASED WITHOUT AUTHORIZATION
== END 2025-01-05 10:05 | disposition home or self-care (01) ==
LOC: DS 08:56 → MS 11:51 → DS 01-05 10:05
PROVIDERS: ATTEND Urology
PROC: 0VB08ZZ Excision of Prostate, Via Natural or Artificial Opening Endoscopic (ICD-10-PCS; principal; 2025-01-04 10:45)
DX: N40.1 Benign prostatic hyperplasia with lower urinary tract symptoms (principal); R33.9 Retention of urine, unspecified; N18.30 Chronic kidney disease, stage 3 unspecified
CPT/HCPCS: 00914; 51700; 88305; 88344; 94762; 94799; 96360; 96361; 96365; 96372; C1713; C1769; J0131; J0690; J0696; J1100; J1815; J2003; J2704; J3010; J7121